=== PATIENT | male | born 1960 | race Caucasian/White ===

== ENCOUNTER → 2016-02-19 | Outpatient (CLI) | payer OTHER ==
[~2016-02-19] MED LIST: ATOR40TA PO; BUPIVACAINE HCL 0.25% 10 ML VIAL As Ordered ONE; BUPIVACAINE HCL 0.25% 30 ML VIAL As Ordered ONE; CELE40TA PO; NEUR300C PO; PANT40TA2 PO; PLAV75TA38 PO; TRIAMCINOLONE ACETONIDE SUSP 40 MG/ML VIAL (J3301) As Ordered ONE
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
== END ==
LOC: M PAIN 14:00
PROVIDERS: ATTEND Anesthesiology
DX: G89.29 Other chronic pain (principal); M79.1 Myalgia; M54.5 Low back pain; Z79.82 Long term (current) use of aspirin; Z79.899 Other long term (current) drug therapy
CPT/HCPCS: 20552; J3301

== ENCOUNTER → 2016-07-08 | Outpatient (CLI) | payer OTHER ==
[~2016-07-08] MED LIST changes: -BUPIVACAINE HCL 0.25% 10 ML VIAL As Ordered ONE; +ISOVUE-M 300 61% 15ML VIAL (Q9967) As Ordered ONE; +LIDOCAINE 1% SDV INJ 30 ML VIAL As Ordered ONE
--- NOTE | 2016-07-09 17:48 | REP ---
FLUOROSCOPIC GUIDANCE: The images were reviewed with Dr. Rodriguez. The patient has a history of low back pain. The portable C-ARM was provided in the OR by Dr. Patel for fluoroscopic guidance. 5 intraoperative fluoroscopic spot films were obtained for needle placement verification for left iliolumbar injection. The films are on the PACS system and are available for review. 10 seconds of fluoroscopic time was utilized for this procedure. Reviewed by LUPE Luz 07/10/2016 12:35 PEdited and Signed by Xander Rodriguez MD 07/10/2016 07:22 P
--- NOTE | 2016-07-21 00:09 | ECWPNPC ---
PATIENT NAME: HIRAL FERREIRA : 1960 GENDER: MALE VISIT DATE: 07/08/2016 DISCHARGE DATE: 07/08/16 1030 VISIT LOCKED DATE TIME: PHYSICIAN: EDUARDO BARRETT RESOURCE: EDUARDO BARRETT REASON FOR APPOINTMENT 1. ILIOLUMBAR LIGAMENT INJ HISTORY OF PRESENT ILLNESS HISTORY OF PRESENT ILLNESS: PAIN THE PATIENT DESCRIBES THE PAIN... FALL RISK SCREENING: SCREENING :NO FALLS IN THE PAST YEAR CURRENT MEDICATIONS TAKING CELEXA 40 MG TABLET 1 TAB ORALLY ONCE A DAY, NOTES: 07/08 799 TAKING PLAVIX 75 MG TABLET 1 TABLET ORALLY ONCE A DAY, NOTES: 07/07/16799 TAKING LIPITOR 10 MG TABLET 1 TABLET ORALLY ONCE A DAY, NOTES: 07/08 799 TAKING BABY ASPIRIN 1 TAB ORALLY DAILY, NOTES: 07/07/16799 TAKING IBUPROFEN 800 MG TABLET 1 TABLET WITH FOOD OR MILK ORALLY WITH FOOD THREE TIMES A DAY NEEDED FOR PAIN, NOTES: 2 WEEKS OR SO NOT-TAKING TIZANIDINE HCL 2 MG TABLET 1 TABLET NEEDED ORALLY BEFORE BEDTIME FOR SPASMS AND PAIN MAY REPEAT IN 4HRS MDD2, NOTES: NONE LATELY MEDICATION LIST REVIEWED AND RECONCILED WITH THE PATIENT PAST MEDICAL HISTORY DEPREESION RIGHT LEG FX ALLERGIES N.K.D.A. REVIEW OF SYSTEMS CONSTITUTIONAL: ANY CHANGE IN YOUR MEDICAL CONDITION? NO . CHILLS NO . FEVER NO . INFECTION: DO YOU HAVE NEW INFECTIONS? NO . DO YOU HAVE HISTORY OF MRSA? NO . MUSCULOSKELETAL: ANY NEW PATTERNS OF PAIN OR NUMBNESS? NO . GASTROENTEROLOGY: ANY NEW CHANGE IN BOWEL CONTROL? NO . GENITOURINARY: ANY NEW CHANGE IN BLADDER CONTROL? NO . IS THERE A CHANCE YOU COULD BE ? NO . HEMATOLOGY/LYMPH: DO YOU TAKE ANY BLOOD THINNERS? (FOR EXAMPLE- COUMADIN, PLAVIX, AGGRENOX, PLATEL, PRADAXA, OR XARELTO) NO . WHEN WAS YOUR LAST DOSE? DATE: TIME: . NEUROLOGY: HAVE YOU FALLEN IN THE PAST 6 MONTHS? NO . ANY NEW EXTREMITY NUMBNESS OR WEAKNESS? NO . CARDIOLOGY: DO YOU HAVE A PACEMAKER OR DEFIBRILLATOR? NO . RESPIRATORY: HAVE YOU BEEN SICK IN THE PAST WEEK? NO . FEVER NO . FLU LIKE SYMPTOMS? NO . COUGH NO . INTEGUMENTARY: DO YOU HAVE ANY RASHES OR OPEN SORES? NO . ALLERGIC/IMMUNO: ARE YOU ALLERGIC TO SHELLFISH OR IV DYE? NO . ANY NEW ALLERGIES? NO . PSYCHIATRIC: DO YOU HAVE THOUGHTS OF HURTING YOURSELF OR SOMEONE ELSE? NO . ARE YOU ABUSED, NEGLECTED, OR IN AN UNSAFE ENVIRONMENT? NO . ENDOCRINOLOGY: ARE YOU DIABETIC? NO . OTHER: DO YOU NEED ANY PRESCRIPTIONS? NO . IF YES, PLEASE LIST: ____ . ANY NEW PROBLEMS WITH YOUR MEDICATIONS? NO . WHEN DID YOU LAST EAT? 8PM . WHEN DID YOU LAST DRINK? 8PM . WHAT DID YOU LAST DRINK? MILK . NAME OF PERSON DRIVING YOU HOME? MICHELINE . DO YOU HAVE ANY OTHER QUESTIONS OR CONCERNS NO . REVIEWED BY: PROVIDER: . VITAL SIGNS WT 194 LBS, HT 71 IN, BMI 27.05 INDEX, BP 149/70 MM HG, HR 85 /MIN, RR 18 /MIN, TEMP 98.6 F, OXYGEN SAT % 96%, NA INITIALS SC 09:12, REVIEWED BY: NL. ASSESSMENTS SPINAL ENTHESOPATHY, LUMBAR REGION - M46.06 (PRIMARY) TREATMENT OTHERS NOTES: PRE-PROCEDURE DIAGNOSIS: LEFT ILIO-LUMBAR LIGAMENT INFLAMMATIONPOST-PROCEDURE DIAGNOSIS: LEFT ILIO-LUMBAR LIGAMENT INJECTION INFLAMMATIONPROCEDURE: LEFT ILIO-LUMBAR LIGAMENT BLOCK UNDER FLUOROSCOPYSURGEON: CHRISTIN ARGUETATHESIA: LOCAL WITH IV SEDATIONCOMPLICATIONS: NONEPRE-PROCEDURE NOTE:THE PATIENT IS SUFFERING OF BACK PAIN. I REVIEWED THE CHART AND DISCUSSED THE CASE WITH THE PATIENT. AFTER DISCUSSING RISK, ALTERNATIVES AND BENEFITS WE HAVE AGREED ON PROCEEDING WITH THE PROCEDURE. THE PATIENT AGREES.PROCEDURE NOTE:AFTER REVIEW THE CASE WITH THE PATIENT HE WAS BROUGHT TO THE PROCEDURE ROOM AND PLACED IN THE PRONE POSITION. THE TARGET AREA WAS CLEANED WITH CHLORAPREP SOLUTION AND DRAPED ASEPTICALLY. TARGET WAS SELECTED AT THE SUPERIOR BORDER OF THE LEFT ILIAC CREST. LIDOCAINE 1% WAS USED LOCAL ANESTHETIC. SPINAL NEEDLE 22 GAUGE WAS ADVANCED UNDER FLUOROSCOPIC GUIDANCE UNTIL THE TARGET WAS REACHED. ISOVUE M DYE 30% 0.25 CC WAS INJECTED SHOWING ADEQUATE SPREAD OF THE DYE. THEN A SOLUTION OF 30 CC OF BUPIVACAINE 0.125% AND KENALOG 40 MG WAS INJECTED. THE PATIENT TOLERATES THE PROCEDURE WITHOUT COMPLICATIONS AND WAS SENT TO THE RECOVERY ROOM. FLUORO TIME = 10 SEC. POST-PROCEDURE NOTE:I WILL SEE THE PATIENT IN A FOLLOW UP IN THE NEXT FEW WEEKS. WE ARE LOOKING FOR LONG LASTING PAIN RELIEVE WITH THIS INTERVENTION. INSTRUCTIONS WERE GIVEN QUESTIONS WERE ANSWERED AND THE PATIENT REPORTS UNDERSTANDING AND AGREES. I, PRINCE THACKER, DOCUMENTED THE ABOVE INFORMATION ACTING A SCRIBE FOR DR. BARRETT. I HAVE REVIEWED THE ABOVE DOCUMENT, WRITTEN BY PRINCE LUNAIBSonny AND I VERIFY THAT IT IS ACCURATE. DIAGNOST[facility] FLUORO GUIDANCE (PAIN)[id number] PROCEDURE CODES 25530 INJ TENDON SHEATH/LIGAMENT 19698 NEEDLE LOCALIZATION BY XRAY 6045F RADXPS IN END [id number] PXD DISPOSITION & COMMUNICATION FOLLOW UP 3 WEEKS ELECTRONICALLY SIGNED BY EDUARDO BARRETT MD ON 07/20/2016 AT 06:55 PM EDT DISCLAIMER : THIS IS A VISIT SUMMARY EXTRACTED FROM THE [employer] CHART. IT IS NOT A COPY OF THE [employer] PROGRESS NOTE. MTDD
== END ==
LOC: M PAIN 09:00
PROVIDERS: ATTEND Anesthesiology
DX: M46.06 Spinal enthesopathy, lumbar region (principal); Z79.82 Long term (current) use of aspirin; Z79.01 Long term (current) use of anticoagulants; Z79.899 Other long term (current) drug therapy

== ENCOUNTER → 2016-07-22 | Outpatient (CLI) | payer OTHER ==
[~2016-07-22] MED LIST changes: +ATOR1TAB19 PO; -ATOR40TA PO; +ATOR40TA75 PO; -BUPIVACAINE HCL 0.25% 30 ML VIAL As Ordered ONE; +COLA100C5 PO; -ISOVUE-M 300 61% 15ML VIAL (Q9967) As Ordered ONE; -LIDOCAINE 1% SDV INJ 30 ML VIAL As Ordered ONE; +LISI-538 PO; +MULTLIQ7 PO; +PLAV1TAB2 PO; -PLAV75TA38 PO; +PREG100CA PO; +PROT1TAB2 PO; +SOMA350T PO; -TRIAMCINOLONE ACETONIDE SUSP 40 MG/ML VIAL (J3301) As Ordered ONE; +TYLE325T5 PO; +ULTR50TA8 PO
--- NOTE | 2016-08-09 00:14 | ECWPNPC ---
PATIENT NAME: HIRAL FERREIRA : 1960 GENDER: MALE VISIT DATE: 07/22/2016 DISCHARGE DATE: 07/22/16 1410 VISIT LOCKED DATE TIME: PHYSICIAN: ROB CUI RESOURCE: ROB CUI REASON FOR APPOINTMENT 1. 40 MIN F/U BACK HISTORY OF PRESENT ILLNESS HISTORY OF PRESENT ILLNESS: PAIN THE PATIENT DESCRIBES THE PAIN... FALL RISK SCREENING: SCREENING :NO FALLS IN THE PAST YEAR TODAY'S VISIT: NOTES: S/P LEFT ILIO-LUMBAR LIGAMENT BLOCK UNDER FLURO COMPLETED ON 07/08/16. REPORTS IMPROVED PAIN CONTROL IN LOW BACK LEFT SIDE. RATES PAIN TODAY 2/10 IN LOW BACK AND 7/10 IN RIGHT FOOT. REPORTS 80% IMPROVEMENT IN PAIN AT THE INJECTION AREA. HAS NOT HEARD FROM NEUROLOGY REGARDING RIGHT FOOT. LATERAL TOES RITGHT FOOT. MOST OF PAIN IS RIGHT GREAT TOES. FOOT SWELLS. HAD SIMILAR PAIN BEFORE VASCULAR SURGEON (SOPHIA) WHO REFERRED HIM TO US. NOT SLEEPING SO WELL DO TO MANY AREAS OF PAIN.. CURRENT MEDICATIONS TAKING CELEXA 40 MG TABLET 1 TAB ORALLY ONCE A DAY TAKING PLAVIX 75 MG TABLET 1 TABLET ORALLY ONCE A DAY TAKING LIPITOR 10 MG TABLET 1 TABLET ORALLY ONCE A DAY TAKING LISINOPRIL 20 MG TABLET 1 TABLET ORALLY ONCE A DAY NOT-TAKING BABY ASPIRIN 1 TAB ORALLY DAILY, NOTES: 07/07/16 0800 NOT-TAKING IBUPROFEN 800 MG TABLET 1 TABLET WITH FOOD OR MILK ORALLY WITH FOOD THREE TIMES A DAY NEEDED FOR PAIN, NOTES: 2 WEEKS OR SO NOT-TAKING TIZANIDINE HCL 2 MG TABLET 1 TABLET NEEDED ORALLY BEFORE BEDTIME FOR SPASMS AND PAIN MAY REPEAT IN 4HRS MDD2, NOTES: NONE LATELY MEDICATION LIST REVIEWED AND RECONCILED WITH THE PATIENT PAST MEDICAL HISTORY DEPREESION RIGHT LEG FX ALLERGIES N.K.D.A. SOCIAL HISTORY GENERAL: PAIN CLINIC PFS, CLERGY, PUBLIC HEALTH REFERRALS PFS REFERRAL NEEDED?NO CLERGY REFERRAL NEEDED?NO PUBLIC HEALTH REFERRAL NEEDED?NO WAS THE PROVIDER NOTIFIED OF ANY PERTINENT INFO?NO HAS THE PATIENT BEEN EDUCATED REGARDING HIS/HER PLAN OF CARE?YES HAS THE PATIENT BEEN EDUCATED REGARDING PAIN, THE RISK FOR PAIN, THE IMPORTANCE OF EFFECTIVE PAIN MANAGEMENT, AND THE PAIN ASSESSMENT PROCESS?YES PATIENT: ____. REVIEW OF SYSTEMS REVIEWED BY: PROVIDER: ROB WALKER CONTENT STRATEGY LEAD . CONSTITUTIONAL: ANY CHANGE IN YOUR MEDICAL CONDITION? NO . CHILLS NO . FEVER NO . INFECTION: DO YOU HAVE NEW INFECTIONS? NO . DO YOU HAVE HISTORY OF MRSA? NO . MUSCULOSKELETAL: ANY NEW PATTERNS OF PAIN OR NUMBNESS? NO . GASTROENTEROLOGY: ANY NEW CHANGE IN BOWEL CONTROL? NO . GENITOURINARY: ANY NEW CHANGE IN BLADDER CONTROL? NO . IS THERE A CHANCE YOU COULD BE ? NO . HEMATOLOGY/LYMPH: DO YOU TAKE ANY BLOOD THINNERS? (FOR EXAMPLE- COUMADIN, PLAVIX, AGGRENOX, PLATEL, PRADAXA, OR XARELTO) YES, PLAVIX . WHEN WAS YOUR LAST DOSE? DATE:07/22/16 TIME: 729 . NEUROLOGY: HAVE YOU FALLEN IN THE PAST 6 MONTHS? NO . ANY NEW EXTREMITY NUMBNESS OR WEAKNESS? NO . CARDIOLOGY: DO YOU HAVE A PACEMAKER OR DEFIBRILLATOR? NO . RESPIRATORY: HAVE YOU BEEN SICK IN THE PAST WEEK? NO . FEVER NO . FLU LIKE SYMPTOMS? NO . COUGH NO . INTEGUMENTARY: DO YOU HAVE ANY RASHES OR OPEN SORES? NO . ALLERGIC/IMMUNO: ARE YOU ALLERGIC TO SHELLFISH OR IV DYE? NO . ANY NEW ALLERGIES? NO . PSYCHIATRIC: DO YOU HAVE THOUGHTS OF HURTING YOURSELF OR SOMEONE ELSE? NO . ARE YOU ABUSED, NEGLECTED, OR IN AN UNSAFE ENVIRONMENT? NO . ENDOCRINOLOGY: ARE YOU DIABETIC? NO . OTHER: DO YOU NEED ANY PRESCRIPTIONS? NO . IF YES, PLEASE LIST: ____ . ANY NEW PROBLEMS WITH YOUR MEDICATIONS? NO . WHEN DID YOU LAST EAT? ____ . WHEN DID YOU LAST DRINK? ____ . WHAT DID YOU LAST DRINK? ____ . NAME OF PERSON DRIVING YOU HOME? ____ . DO YOU HAVE ANY OTHER QUESTIONS OR CONCERNS NO . VITAL SIGNS WT 192.4 LBS, HT 71", BMI 26.83 INDEX, BP 132/72 MM HG, HR 84 /MIN, RR 16 /MIN, TEMP 98.3 F, OXYGEN SAT % 96%, NA INITIALS TL 1306, REVIEWED BY: CS. EXAMINATION GENERAL EXAMINATION: PSYCHALERT , ORIENTED X 3 , APPROPRIATE MOOD AND AFFECT , TALKATIVE. LUNGS:CLEAR TO AUSCULTATION BILATERALLY. HEART:HEART RATE REGULAR. MUSCULOSKELETAL:MINIMAL TO NO TENDERNESS WITH PALPATION OVER LEFT ILIAC CREST AND TROCANTER. TENDER WITH PALPATION OVER SACRUM, DISTAL TO SACRAL ILIAC JOINT. SLOW TO DENISE TO STANDING POSITION. POSTURE UPRIGHT. GAIT ANTALGIC, WITH RIGHT LEG LIMP. EXTREMITIES:SLIGHT SWELLING BETWEEN 1ST AND 2ND METATARSALS. TRACE PULSE AT DP AND PT RIGHT , 2+ LEFT DP. FEET EQUALLY WARM.. ASSESSMENTS SPINAL ENTHESOPATHY, LUMBAR REGION - M46.06 (PRIMARY) MYALGIA - M79.1 (PRIMARY) NEURALGIA AND NEURITIS, UNSPECIFIED - M79.2 TREATMENT SPINAL ENTHESOPATHY, LUMBAR REGION START TIZANIDINE HCL TABLET, 4 MG, 1/2 - 1 TABLET NEEDED, ORALLY, BEFORE BEDTIME, 30 DAY(S), 30, REFILLS 1 LAB: URIC ACID LAB: COMPREHENSIVE METABOLIC PROFILE LAB: ERYTHROCYTE SEDIMENTATION RATE LAB: VITB12 & FOL NOTES: NEEDS EMG/NCS WITH DR GUO - RIGHT FOOT NEURALGIA. PREVENTIVE MEDICINE PAIN CLINIC TEACHING: MEDICATIONS INFORMATION GIVEN ABOUT TIZANIDINE. PROCEDURE CODES FA211 ESTABILISHED PATIENT [facility] CHARGE DISPOSITION & COMMUNICATION FOLLOW UP ONE MONTH ELECTRONICALLY SIGNED BY RAHEL FERNANDES ON 08/08/2016 AT 04:23 PM EDT DISCLAIMER : THIS IS A VISIT SUMMARY EXTRACTED FROM THE [employer] CHART. IT IS NOT A COPY OF THE [employer] PROGRESS NOTE. KARIN
== END ==
LOC: M PAIN 13:20
PROVIDERS: ATTEND Nurse Practitioner Family
DX: M46.06 Spinal enthesopathy, lumbar region (principal); M79.1 Myalgia; M79.2 Neuralgia and neuritis, unspecified; Z79.899 Other long term (current) drug therapy; Z79.01 Long term (current) use of anticoagulants

== ENCOUNTER → 2016-09-01 | Outpatient (CLI) | payer OTHER ==
--- NOTE | 2016-09-01 09:44 | REP ---
REASON: Lower extremity radicular symptoms. COMPARISON: 10/17/2014 Once again, there is loss of disc space height and disc hydrational signal at every level particularly L1-2 through L3-4 inclusive, status quo. Once again, there are Modic type 3 endplate changes seen at L2-3 status quo. Vertebral body height and alignment is unchanged. There is no change in the marrow signal. At the L1-2 level, there is no significant change. There is a broad-based annular bulge effacing the ventral subarachnoid space, status quo. There is no acute disc extrusion or foraminal narrowing. At the L2-3 level, there is a large asymmetric broad-based annular bulge seen in conjunction with a sequestrated central disc extrusion, which effaces the ventral subarachnoid space, is seen to have migrated inferiorly, and is causing significant compression on the left L2 foraminal nerve as well as the L3 nerve root on the left. This represents as significant change from the prior exam. At the L3-4 level, a large broad-based annular bulge is again noted, which effaces the ventral subarachnoid space causing flattening and straightening. There is no change in the degree of central canal stenosis. There is bilateral foraminal narrowing without evidence of foraminal nerve compression. No acute disc extrusion has developed. At the L4-5 level, there is a large asymmetric broad-based annular bulge which contacts the left L4 foraminal nerve. The broad-based bulge has increased in size from the prior exam. There is a flattening and straightening of the anterior thecal sac, which has also increased from the prior exam. There is no evidence of an acute disc extrusion. At the L5-S1 level, there is no changed. There is a broad-based annular bulge, but there is no disc extrusion, foraminal narrowing, or central canal stenosis. Hypertrophic degenerative facet joint changes are seen bilaterally at every level with thickening of the ligamentum flava status quo. IMPRESSION: Multi-level discogenic changes but with particular attention drawn to the L2-3 level as described above. Signed by Uriel Lam DO 09/01/2016 01:22 P
== END ==
LOC: M RAD 06:34
PROVIDERS: ATTEND Family Medicine
DX: M54.16 Radiculopathy, lumbar region (principal); M51.36 Other intervertebral disc degeneration, lumbar region

== ENCOUNTER → 2016-09-15 | Outpatient (CLI) | payer OTHER ==
--- NOTE | 2016-09-15 11:34 | REP ---
CT LUMBAR SPINE WITHOUT CONTRAST: HISTORY: Radiculopathy. COMPARISON: MR 09/01/2016. A diffuse disc bulge is present at the L1-2 level. There is minimal compression of the thecal sac. There is hypertrophy of the posterior articulating facets. The L1 nerves exit the neural foramina without compression. A diffuse disc bulge asymmetric to the right and large left paracentral disc extrusion are present at the L2-3 level. There is inferior migration of disc material. There is moderate compression of the thecal sac and left L3 nerve as it exits the thecal sac and in the left L3 lateral recess. There is hypertrophy of the posterior articulating facets. There is compression of the right L2 nerve in the neural foramen. The left L2 nerve exits the neural foramen without compression. A diffuse disc bulge is present at the L3-4 level. The disc extrusion at the L3-4 level extends inferiorly to the level of the L3-4 intervertebral disc. These findings produce moderate compression of the thecal sac. There is hypertrophy of the posterior articulating facets. There is compression of the L3 nerves in the neural foramina. A diffuse disc bulge is present at the L4-5 level. There is minimal compression of the thecal sac. There is hypertrophy of the posterior articulating facets. There is compression of the left L4 nerve in the neural foramen. The right L4 nerve exits the neural foramen without compression. A diffuse disc bulge and small right paracentral disc protrusion are present at the L5-S1 level. There is minimal compression of the thecal sac and right S1 nerve as it exits the thecal sac. There is hypertrophy of the posterior articulating facets. The L5 nerves exit the neural foramina without compression. The lumbar intervertebral discs are decreased in height. Vacuum phenomenon is present at the L2-3 through L4-5 levels. These findings are consistent with disc degeneration. There is no subluxation. IMPRESSION: 1. Diffuse disc bulge at the L1-2 level with minimal thecal sac compression. 2. Diffuse disc bulge and large left paracentral disc extrusion at the L2-3 level with moderate thecal sac compression. 3. Diffuse disc bulge at the L3-4 level with moderate thecal sac compression. 4. Diffuse disc bulge at the L4-5 level with minimal thecal sac compression. 5. Diffuse disc bulge and small right paracentral disc protrusion at the L5-S1 level with minimal compression of the thecal sac and right S1 nerve as it exits the thecal sac. The disc protrusion is a new finding. There is no other significant change. ? Signed by Jacob Parikh MD 09/15/2016 11:36 A
== END ==
LOC: M RAD 09:59
PROVIDERS: ATTEND Neurological Surgery
DX: M54.16 Radiculopathy, lumbar region (principal); M51.26 Other intervertebral disc displacement, lumbar region; M51.27 Other intervertebral disc displacement, lumbosacral region

== ENCOUNTER → 2016-09-30 | Outpatient (CLI) | payer OTHER ==
[2016-09-30 09:11] LABS: BASO % 0.7 % (0.0-1.0); EOS # 0.1 K/mm3 (0.0-0.50); LARGE UNSTAINED CELL # 0.1 K/mm3 (0.0-0.4); LARGE UNSTAINED CELL % 1.5 % (0.0-4.0); LYMPH # 1.3 K/mm3 (1.5-4.5); LYMPH % 18.8 % (24.0-44.0); MEAN CORPUSCULAR HEMOGLOBIN 31.5 pg (27.0-33.0); MEAN CORPUSCULAR HGB CONC 34.5 g/dl (32.0-36.5); MEAN CORPUSCULAR VOLUME 91.4 fl (80.0-96.0); MONO # 0.5 K/mm3 (0.0-0.8); MONO % 6.8 % (0.0-5.0); NEUTROPHILS # 4.8 K/mm3 (1.8-7.7); NEUTROPHILS % 70.3 % (36.0-66.0); PLATELET COUNT, AUTOMATED 344 k/mm3 (150-450); RED CELL DISTRIBUTION WIDTH 14.1 % (11.5-14.5); WHITE BLOOD COUNT 6.8 K/mm3 (4.0-10.0)
[2016-09-30 09:20] LABS: INR 0.91
--- NOTE | 2016-09-30 09:31 | ECGEPIP ---
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
--- NOTE | 2016-09-30 09:35 | REP ---
CHEST X-RAY: Two views. HISTORY: Lumbar radiculopathy. Comparison study: June 29, 2012. FINDINGS: The patient is status post ventral discectomy and fusion at the cervicothoracic junction. There are degenerative changes throughout the thoracic spine. The lungs are well inflated and free of infiltrate. Pleural angles are sharp. Heart size is normal. Pulmonary vasculature is not increased. IMPRESSION: No active cardiopulmonary disease. Signed by Javid Borges MD 09/30/2016 09:56 A
[2016-09-30 09:36] LABS: ALBUMIN 3.9 GM/DL (3.2-5.2); ALBUMIN/GLOBULIN RATIO 1.26 (1.00-1.93); ALKALINE PHOSPHATASE 126 U/L (45-117); ALT/SGPT 22 U/L (12-78); ANION GAP 9 MEQ/L (8-16); AST/SGOT 17 U/L (15-37); BILIRUBIN,TOTAL 0.3 MG/DL (0.2-1.0); BLOOD UREA NITROGEN 13 MG/DL (7-18); CALCIUM LEVEL 9.2 MG/DL (8.5-10.1); CARBON DIOXIDE LEVEL 24 MEQ/L (21-32); CHLORIDE LEVEL 106 MEQ/L (98-107); CREATININE FOR GFR 0.97 MG/DL (0.70-1.30); GLOMERULAR FILTRATION RATE > 60.0 (>56); GLUCOSE, FASTING 106 MG/DL (70-105); POTASSIUM SERUM 4.7 MEQ/L (3.5-5.1); SODIUM LEVEL 139 MEQ/L (136-145)
== END ==
LOC: M LAB 08:28
PROVIDERS: ATTEND Neurological Surgery
DX: Z01.818 Encounter for other preprocedural examination (principal); M54.16 Radiculopathy, lumbar region; Z72.0 Tobacco use

== ENCOUNTER → 2016-11-19 | Outpatient (CLI) | payer MEDICAID, OTHER ==
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
== END ==
LOC: M PAIN 13:00
PROVIDERS: ATTEND Anesthesiology
DX: M96.1 Postlaminectomy syndrome, not elsewhere classified (principal); M79.2 Neuralgia and neuritis, unspecified; F32.9 Major depressive disorder, single episode, unspecified; Z79.01 Long term (current) use of anticoagulants; Z79.899 Other long term (current) drug therapy

== ENCOUNTER → 2016-11-26 | Outpatient (REF) | payer MEDICAID, OTHER | LOC: M LABNEURO 15:26 | PROVIDERS: ATTEND Neurological Surgery | DX: Z01.89 Encounter for other specified special examinations (principal) ==

== ENCOUNTER → 2016-11-28 | Outpatient (CLI) | payer MEDICAID ==
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
== END ==
LOC: M PAIN 14:50
PROVIDERS: ATTEND Anesthesiology
DX: G89.29 Other chronic pain (principal); M96.1 Postlaminectomy syndrome, not elsewhere classified; M79.2 Neuralgia and neuritis, unspecified; F32.9 Major depressive disorder, single episode, unspecified; Z79.02 Long term (current) use of antithrombotics/antiplatelets; Z79.899 Other long term (current) drug therapy; Z98.1 Arthrodesis status

== ENCOUNTER → 2016-12-02 | Outpatient (CLI) | payer MEDICAID ==
--- NOTE | 2016-12-02 16:31 | REP ---
LUMBOSACRAL SPINE: AP and lateral views of the lumbar sacral spine are performed and compared to prior study of 11/14/2016. There is no new compression fracture. There is again mild anterior listhesis of L4 unchanged since prior study. Moderate diffuse spurring is present. There is sclerotic density in the L2 through L4 vertebral bodies. Disc space narrowing is seen at all levels, unchanged, with a disc spacer at L4-5. Posterior rods and screws appear unchanged. IMPRESSION: Stable exam. Signed by Xander Rodriguez MD 12/03/2016 04:31 P
== END ==
LOC: M RAD 15:00
PROVIDERS: ATTEND Neurological Surgery
DX: M48.07 Spinal stenosis, lumbosacral region (principal)

== ENCOUNTER → 2016-12-02 | Outpatient (CLI) | payer MEDICAID ==
[2016-12-02 16:22] LABS: BLOOD UREA NITROGEN 23 MG/DL (7-18); CREATININE FOR GFR 1.08 MG/DL (0.70-1.30); GLOMERULAR FILTRATION RATE > 60.0 (>56)
== END ==
LOC: M LAB 14:46
PROVIDERS: ATTEND Neurological Surgery
DX: Z01.89 Encounter for other specified special examinations (principal)

== ENCOUNTER → 2016-12-29 | Outpatient (CLI) | payer OTHER, MEDICAID ==
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
== END ==
LOC: M PAIN 10:15
PROVIDERS: ATTEND Nurse Practitioner Family
DX: M96.1 Postlaminectomy syndrome, not elsewhere classified (principal); M79.2 Neuralgia and neuritis, unspecified; F32.9 Major depressive disorder, single episode, unspecified; Z79.01 Long term (current) use of anticoagulants; K21.9 Gastro-esophageal reflux disease without esophagitis; Z87.891 Personal history of nicotine dependence; Z79.899 Other long term (current) drug therapy

== ENCOUNTER → 2017-02-05 | Outpatient (CLI) | payer OTHER, MEDICAID | LOC: M PAIN 09:45 | DX: G89.29 Other chronic pain (principal); M96.1 Postlaminectomy syndrome, not elsewhere classified; M79.2 Neuralgia and neuritis, unspecified; I73.9 Peripheral vascular disease, unspecified; F32.9 Major depressive disorder, single episode, unspecified; Z79.02 Long term (current) use of antithrombotics/antiplatelets; Z79.899 Other long term (current) drug therapy; Z87.891 Personal history of nicotine dependence | CPT/HCPCS: G0463 ==

== ENCOUNTER → 2017-02-24 | Outpatient (CLI) | payer OTHER, MEDICAID | LOC: M PAIN 10:30 | DX: M96.1 Postlaminectomy syndrome, not elsewhere classified (principal); M79.2 Neuralgia and neuritis, unspecified; I73.9 Peripheral vascular disease, unspecified; Z79.891 Long term (current) use of opiate analgesic; Z79.899 Other long term (current) drug therapy; Z87.891 Personal history of nicotine dependence | CPT/HCPCS: G0463 ==

== ENCOUNTER → 2017-02-25 | Outpatient (CLI) | payer OTHER | LOC: M RAD 11:29 | DX: M96.1 Postlaminectomy syndrome, not elsewhere classified (principal) | CPT/HCPCS: 72100 ==

== ENCOUNTER → 2017-03-11 | Outpatient (REF) | payer OTHER ==
[2017-03-11 17:57] LABS: BASO % 0.4 % (0.0-1.0); EOS # 0.1 10^3/uL (0.0-0.50); EOS % 0.6 % (0.0-3.0); HEMATOCRIT 38.2 % (42.0-52.0); HEMOGLOBIN 12.7 g/dl (14.0-18.0); IMMATURE GRANULOCYTE % 0.2 % (0-0); LYMPH # 2.2 10^3/uL (1.5-4.5); LYMPH % 19.8 % (24.0-44.0); MEAN CORPUSCULAR HEMOGLOBIN 27.9 pg (27.0-33.0); MEAN CORPUSCULAR HGB CONC 33.2 g/dl (32.0-36.5); MEAN CORPUSCULAR VOLUME 83.8 fl (80.0-96.0); MONO # 0.9 10^3/uL (0.0-0.8); MONO % 8.1 % (0.0-5.0); NEUTROPHILS # 7.7 10^3/uL (1.8-7.7); NEUTROPHILS % 70.9 % (36.0-66.0); PLATELET COUNT, AUTOMATED 413 10^3/uL (150-450); RED BLOOD COUNT 4.56 10^6/uL (4.30-6.10); RED CELL DISTRIBUTION WIDTH 16.1 % (11.5-14.5); WHITE BLOOD COUNT 10.9 10^3/uL (4.0-10.0)
[2017-03-11 18:06] LABS: ALBUMIN 4.1 GM/DL (3.2-5.2); ALBUMIN/GLOBULIN RATIO 1.21 (1.00-1.93); ALKALINE PHOSPHATASE 177 U/L (45-117); ALT/SGPT 22 U/L (12-78); ANION GAP 9 MEQ/L (8-16); AST/SGOT 20 U/L (7-37); BILIRUBIN,TOTAL 0.4 MG/DL (0.2-1.0); BLOOD UREA NITROGEN 10 MG/DL (7-18); C REACTIVE PROTEIN QUANTITATIV 0.92 MG/DL (0.00-0.30); CALCIUM LEVEL 9.4 MG/DL (8.5-10.1); CARBON DIOXIDE LEVEL 24 MEQ/L (21-32); CHLORIDE LEVEL 105 MEQ/L (98-107); CHOLESTEROL LEVEL 153 MG/DL (<200); CHOLESTEROL RISK RATIO 2.886 (<5); CPK CREATINE PHOSPHOKINASE 136 U/L (39-308); CREATININE FOR GFR 0.75 MG/DL (0.70-1.30); FERRITIN 23 NG/ML (26-388); GLOMERULAR FILTRATION RATE > 60.0 (>56); GLUCOSE, FASTING 71 MG/DL (70-100); HDL CHOLESTEROL 53 MG/DL (>40); IRON (FE) 48 UG/DL (65-175); NON-HDL-C 100 MG/DL; PERCENT SATURATION 13.6 % (19.7-50.0); POTASSIUM SERUM 4.4 MEQ/L (3.5-5.1); PSA SCREENING 0.43 NG/ML (< 4.0); SODIUM LEVEL 138 MEQ/L (136-145); TOTAL IRON BINDING CAPACITY 353 UG/DL (250-450); TOTAL PROTEIN 7.5 GM/DL (6.4-8.2); TRIGLYCERIDES LEVEL 120 MG/DL (<150)
[2017-03-11 18:27] LABS: ERYTHROCYTE SEDIMENTATION RATE 12 mm/hr (0-20)
== END ==
LOC: M SFHCPLAZ 15:11
DX: I10 Essential (primary) hypertension (principal); E78.00 Pure hypercholesterolemia, unspecified; Z12.5 Encounter for screening for malignant neoplasm of prostate; T85.9XXS Unspecified complication of internal prosthetic device, implant and graft, sequela

== ENCOUNTER → 2017-03-12 | Outpatient (CLI) | payer OTHER | LOC: M RAD 10:45 | DX: I70.213 Atherosclerosis of native arteries of extremities with intermittent claudication, bilateral legs (principal); M48.07 Spinal stenosis, lumbosacral region; M54.16 Radiculopathy, lumbar region | CPT/HCPCS: 93923 ==

== ENCOUNTER → 2017-04-01 | Outpatient (CLI) | payer OTHER ==
[2017-04-01 16:50] LABS: ANION GAP 8 MEQ/L (8-16); BLOOD UREA NITROGEN 8 MG/DL (7-18); CALCIUM LEVEL 9.2 MG/DL (8.5-10.1); CARBON DIOXIDE LEVEL 26 MEQ/L (21-32); CHLORIDE LEVEL 106 MEQ/L (98-107); CREATININE FOR GFR 0.79 MG/DL (0.70-1.30); GLOMERULAR FILTRATION RATE > 60.0 (>56); GLUCOSE, FASTING 89 MG/DL (70-100); POTASSIUM SERUM 4.3 MEQ/L (3.5-5.1); SODIUM LEVEL 140 MEQ/L (136-145)
[2017-04-01 18:43] LABS: BASO % 0.5 % (0.0-1.0); EOS # 0.1 10^3/uL (0.0-0.50); EOS % 0.6 % (0.0-3.0); HEMATOCRIT 40.5 % (42.0-52.0); HEMOGLOBIN 13.4 g/dl (14.0-18.0); IMMATURE GRANULOCYTE % 0.3 % (0-3.0); LYMPH # 2.3 10^3/uL (1.5-4.5); LYMPH % 26.2 % (24.0-44.0); MEAN CORPUSCULAR HEMOGLOBIN 27.7 pg (27.0-33.0); MEAN CORPUSCULAR HGB CONC 33.1 g/dl (32.0-36.5); MEAN CORPUSCULAR VOLUME 83.7 fl (80.0-96.0); MONO # 0.8 10^3/uL (0.0-0.8); NEUTROPHILS # 5.5 10^3/uL (1.8-7.7); NEUTROPHILS % 63.4 % (36.0-66.0); PLATELET COUNT, AUTOMATED 397 10^3/uL (150-450); RED BLOOD COUNT 4.84 10^6/uL (4.30-6.10); RED CELL DISTRIBUTION WIDTH 15.9 % (11.5-14.5); WHITE BLOOD COUNT 8.7 10^3/uL (4.0-10.0)
== END ==
LOC: M LAB 15:35
DX: M48.07 Spinal stenosis, lumbosacral region (principal); M54.16 Radiculopathy, lumbar region; I70.213 Atherosclerosis of native arteries of extremities with intermittent claudication, bilateral legs
CPT/HCPCS: 80048

== ENCOUNTER → 2017-04-03 | Outpatient (CLI) | payer OTHER ==
[2017-04-03 14:00] LABS: BASO % 0.5 % (0.0-1.0); EOS # 0.1 10^3/uL (0.0-0.50); EOS % 0.8 % (0.0-3.0); HEMOGLOBIN 13.4 g/dl (14.0-18.0); IMMATURE GRANULOCYTE % 0.3 % (0-3.0); LYMPH # 1.9 10^3/uL (1.5-4.5); LYMPH % 25.5 % (24.0-44.0); MEAN CORPUSCULAR HEMOGLOBIN 28.2 pg (27.0-33.0); MEAN CORPUSCULAR HGB CONC 33.5 g/dl (32.0-36.5); MONO # 0.7 10^3/uL (0.0-0.8); NEUTROPHILS # 4.7 10^3/uL (1.8-7.7); NEUTROPHILS % 63.9 % (36.0-66.0); PLATELET COUNT, AUTOMATED 367 10^3/uL (150-450); RED BLOOD COUNT 4.76 10^6/uL (4.30-6.10); WHITE BLOOD COUNT 7.3 10^3/uL (4.0-10.0)
[2017-04-03 14:31] LABS: C REACTIVE PROTEIN QUANTITATIV 0.85 MG/DL (0.00-0.30)
[2017-04-03 15:48] LABS: ERYTHROCYTE SEDIMENTATION RATE 11 mm/hr (0-20)
== END ==
LOC: M LAB 13:20
DX: Z01.89 Encounter for other specified special examinations (principal); M47.896 Other spondylosis, lumbar region; Z98.890 Other specified postprocedural states
CPT/HCPCS: 72114

== ENCOUNTER → 2017-04-06 | Outpatient (CLI) | payer OTHER | LOC: M PLARAD 10:49 | DX: G96.19 Other disorders of meninges, not elsewhere classified (principal); M51.26 Other intervertebral disc displacement, lumbar region; Z98.1 Arthrodesis status; M96.89 Other intraoperative and postprocedural complications and disorders of the musculoskeletal system | CPT/HCPCS: 72158 ==

== ENCOUNTER → 2017-04-24 | Outpatient (CLI) | payer OTHER | LOC: M PAIN 11:15 | DX: M96.1 Postlaminectomy syndrome, not elsewhere classified (principal); M79.2 Neuralgia and neuritis, unspecified; I73.9 Peripheral vascular disease, unspecified; F32.9 Major depressive disorder, single episode, unspecified; F41.9 Anxiety disorder, unspecified; K21.9 Gastro-esophageal reflux disease without esophagitis; G25.81 Restless legs syndrome; Z79.01 Long term (current) use of anticoagulants; Z79.899 Other long term (current) drug therapy; Z86.79 Personal history of other diseases of the circulatory system; Z87.891 Personal history of nicotine dependence; Z95.828 Presence of other vascular implants and grafts | CPT/HCPCS: G0463 ==

== ENCOUNTER → 2017-05-18 | Outpatient (CLI) | payer OTHER ==
[~2017-05-18] MED LIST changes: -ATOR1TAB19 PO; -ATOR40TA75 PO; -CELE40TA PO; -COLA100C5 PO; +HEPARIN 1,000 UNITS/ML 10ML VIAL (FOR RADIOLOGY& DIALYSIS ONLY) As Ordered; +ISOVUE-300 61% 50ML VIAL (Q9967) As Ordered; -LISI-538 PO; +MIDAZOLAM INJ 2 MG/2 ML VIAL (J2250) As Ordered; -MULTLIQ7 PO; -NEUR300C PO; +NORCO, ANEXSIA 5/325MG TABLET (HYDROcodone/ACETAMINOPHEN) As Ordered; -PANT40TA2 PO; -PLAV1TAB2 PO; -PREG100CA PO; -PROT1TAB2 PO; -SOMA350T PO; -TYLE325T5 PO; -ULTR50TA8 PO; +fentaNYL 100 MCG/2 ML INJECTION (J3010) As Ordered
== END | disposition home or self-care (01) ==
LOC: M IRPRO 06:26
DX: I70.411 Atherosclerosis of autologous vein bypass graft(s) of the extremities with intermittent claudication, right leg (principal); M47.9 Spondylosis, unspecified; Z96.9 Presence of functional implant, unspecified
CPT/HCPCS: 37224

== ENCOUNTER → 2017-05-26 | Outpatient (REF) | payer OTHER ==
[2017-05-26 15:40] LABS: BASO % 0.4 % (0.0-1.0); EOS # 0.1 10^3/uL (0.0-0.50); EOS % 0.6 % (0.0-3.0); HEMATOCRIT 42.1 % (42.0-52.0); HEMOGLOBIN 14.2 g/dl (13.5-17.5); IMMATURE GRANULOCYTE % 0.4 % (0-3.0); LYMPH # 1.7 10^3/uL (1.5-4.5); LYMPH % 18.4 % (24.0-44.0); MEAN CORPUSCULAR HEMOGLOBIN 28.1 pg (27.0-33.0); MEAN CORPUSCULAR HGB CONC 33.7 g/dl (32.0-36.5); MEAN CORPUSCULAR VOLUME 83.2 fl (80.0-96.0); MONO # 0.8 10^3/uL (0.0-0.8); MONO % 9.2 % (0.0-5.0); NEUTROPHILS # 6.4 10^3/uL (1.8-7.7); PLATELET COUNT, AUTOMATED 454 10^3/uL (150-450); RED BLOOD COUNT 5.06 10^6/uL (4.30-6.10); RED CELL DISTRIBUTION WIDTH 16.9 % (11.5-14.5)
[2017-05-26 15:50] LABS: C REACTIVE PROTEIN QUANTITATIV 0.99 MG/DL (0.00-0.30)
[2017-05-26 22:00] LABS: ERYTHROCYTE SEDIMENTATION RATE 9 mm/hr (0-20)
== END ==
LOC: M SFHCPLAZ 12:13
DX: T85.9XXS Unspecified complication of internal prosthetic device, implant and graft, sequela (principal); Y92.9 Unspecified place or not applicable; Y93.9 Activity, unspecified

== ENCOUNTER → 2017-06-05 | Outpatient (CLI) | payer OTHER | END | disposition home or self-care (01) | LOC: M PAIN 09:30 | DX: G89.29 Other chronic pain (principal); M96.1 Postlaminectomy syndrome, not elsewhere classified; M79.2 Neuralgia and neuritis, unspecified; I73.9 Peripheral vascular disease, unspecified; F41.9 Anxiety disorder, unspecified; F33.9 Major depressive disorder, recurrent, unspecified; K21.9 Gastro-esophageal reflux disease without esophagitis; Z79.899 Other long term (current) drug therapy; Z79.02 Long term (current) use of antithrombotics/antiplatelets; Z87.891 Personal history of nicotine dependence; Z95.0 Presence of cardiac pacemaker | CPT/HCPCS: G0463 ==

== ENCOUNTER → 2017-06-15 | Outpatient (CLI) | payer OTHER ==
[~2017-06-15] MED LIST changes: -NORCO, ANEXSIA 5/325MG TABLET (HYDROcodone/ACETAMINOPHEN) As Ordered
== END | disposition home or self-care (01) ==
LOC: M IRPRO 06:12
DX: M79.605 Pain in left leg (principal); M48.062 Spinal stenosis, lumbar region with neurogenic claudication; M51.36 Other intervertebral disc degeneration, lumbar region
CPT/HCPCS: 36246

== ENCOUNTER → 2017-06-19 | Outpatient (CLI) | payer OTHER | LOC: M RAD 09:17 | DX: I70.213 Atherosclerosis of native arteries of extremities with intermittent claudication, bilateral legs (principal); M48.07 Spinal stenosis, lumbosacral region | CPT/HCPCS: 93923 ==

== ENCOUNTER → 2017-06-22 | Outpatient (REF) | payer OTHER ==
[2017-06-22 19:29] LABS: BASO # 0.1 10^3/uL (0.0-0.2); BASO % 0.5 % (0.0-1.0); EOS # 0.1 10^3/uL (0.0-0.50); EOS % 0.8 % (0.0-3.0); HEMATOCRIT 41.6 % (42.0-52.0); HEMOGLOBIN 13.9 g/dl (13.5-17.5); IMMATURE GRANULOCYTE % 0.2 % (0-3.0); LYMPH # 2.9 10^3/uL (1.5-4.5); MEAN CORPUSCULAR HEMOGLOBIN 29.2 pg (27.0-33.0); MEAN CORPUSCULAR HGB CONC 33.4 g/dl (32.0-36.5); MEAN CORPUSCULAR VOLUME 87.4 fl (80.0-96.0); MONO # 0.9 10^3/uL (0.0-0.8); MONO % 9.4 % (0.0-5.0); NEUTROPHILS % 60.1 % (36.0-66.0); PLATELET COUNT, AUTOMATED 372 10^3/uL (150-450); RED BLOOD COUNT 4.76 10^6/uL (4.30-6.10); RED CELL DISTRIBUTION WIDTH 17.4 % (11.5-14.5); WHITE BLOOD COUNT 9.9 10^3/uL (4.0-10.0)
[2017-06-22 19:53] LABS: ALBUMIN 4.2 GM/DL (3.2-5.2); ALBUMIN/GLOBULIN RATIO 1.35 (1.00-1.93); ALKALINE PHOSPHATASE 161 U/L (45-117); ALT/SGPT 28 U/L (12-78); ANION GAP 8 MEQ/L (8-16); AST/SGOT 20 U/L (7-37); BILIRUBIN,TOTAL 0.5 MG/DL (0.2-1.0); BLOOD UREA NITROGEN 8 MG/DL (7-18); CALCIUM LEVEL 9.1 MG/DL (8.5-10.1); CARBON DIOXIDE LEVEL 28 MEQ/L (21-32); CHLORIDE LEVEL 106 MEQ/L (98-107); CHOLESTEROL LEVEL 149 MG/DL (<200); CHOLESTEROL RISK RATIO 2.568 (<5); CPK CREATINE PHOSPHOKINASE 107 U/L (39-308); CREATININE FOR GFR 0.87 MG/DL (0.70-1.30); FERRITIN 29 NG/ML (26-388); GLOMERULAR FILTRATION RATE > 60.0 (>56); GLUCOSE, FASTING 66 MG/DL (70-100); HDL CHOLESTEROL 58 MG/DL (>40); IRON (FE) 66 UG/DL (65-175); LDL CHOLESTEROL 79.4 MG/DL (<100); NON-HDL-C 91 MG/DL; PERCENT SATURATION 20.1 % (19.7-50.0); POTASSIUM SERUM 4.2 MEQ/L (3.5-5.1); SODIUM LEVEL 142 MEQ/L (136-145); TOTAL IRON BINDING CAPACITY 329 UG/DL (250-450); TOTAL PROTEIN 7.3 GM/DL (6.4-8.2); TRIGLYCERIDES LEVEL 58 MG/DL (<150)
== END ==
LOC: M SFHCPLAZ 15:49
DX: D50.9 Iron deficiency anemia, unspecified (principal); K21.0 Gastro-esophageal reflux disease with esophagitis

== ENCOUNTER → 2017-08-04 | Outpatient (CLI) | payer OTHER | LOC: M PAIN 09:15 | DX: M96.1 Postlaminectomy syndrome, not elsewhere classified (principal); M79.2 Neuralgia and neuritis, unspecified; M79.1 Myalgia; F32.9 Major depressive disorder, single episode, unspecified; F41.9 Anxiety disorder, unspecified; K21.9 Gastro-esophageal reflux disease without esophagitis; G25.81 Restless legs syndrome; I73.9 Peripheral vascular disease, unspecified; Z79.01 Long term (current) use of anticoagulants; Z79.899 Other long term (current) drug therapy; Z87.891 Personal history of nicotine dependence | CPT/HCPCS: G0463 ==

== ENCOUNTER → 2017-08-06 | Outpatient (CLI) | payer OTHER | LOC: M RAD 10:17 | DX: M96.1 Postlaminectomy syndrome, not elsewhere classified (principal) | CPT/HCPCS: 73521 ==

== ENCOUNTER → 2017-09-02 | Outpatient (CLI) | payer OTHER | LOC: M PAIN 10:30 | DX: M96.1 Postlaminectomy syndrome, not elsewhere classified (principal); M79.2 Neuralgia and neuritis, unspecified; M79.1 Myalgia; F32.9 Major depressive disorder, single episode, unspecified; F41.9 Anxiety disorder, unspecified; G25.81 Restless legs syndrome; Z79.01 Long term (current) use of anticoagulants; Z79.899 Other long term (current) drug therapy; Z87.891 Personal history of nicotine dependence; Z86.79 Personal history of other diseases of the circulatory system | CPT/HCPCS: G0463 ==

== ENCOUNTER → 2017-09-24 | Outpatient (REF) | payer OTHER ==
[2017-09-24 16:14] LABS: ALBUMIN 4.1 GM/DL (3.2-5.2); ALBUMIN/GLOBULIN RATIO 1.14 (1.00-1.93); ALKALINE PHOSPHATASE 154 U/L (45-117); ALT/SGPT 35 U/L (12-78); ANION GAP 9 MEQ/L (8-16); AST/SGOT 20 U/L (7-37); BILIRUBIN,TOTAL 0.6 MG/DL (0.2-1.0); BLOOD UREA NITROGEN 12 MG/DL (7-18); C REACTIVE PROTEIN QUANTITATIV 0.62 MG/DL (0.00-0.30); CALCIUM LEVEL 9.4 MG/DL (8.5-10.1); CARBON DIOXIDE LEVEL 24 MEQ/L (21-32); CHLORIDE LEVEL 108 MEQ/L (98-107); CREATININE FOR GFR 0.84 MG/DL (0.70-1.30); GLOMERULAR FILTRATION RATE > 60.0 (>56); GLUCOSE, FASTING 93 MG/DL (70-100); POTASSIUM SERUM 4.5 MEQ/L (3.5-5.1); RHEUMATOID FACTOR QUANT < 10.0 IU/ML (<15.0); SODIUM LEVEL 141 MEQ/L (136-145); TOTAL PROTEIN 7.7 GM/DL (6.4-8.2)
[2017-09-24 16:35] LABS: BASO % 0.4 % (0.0-1.0); EOS # 0.1 10^3/uL (0.0-0.50); EOS % 0.6 % (0.0-3.0); HEMATOCRIT 42.8 % (42.0-52.0); HEMOGLOBIN 14.8 g/dl (13.5-17.5); IMMATURE GRANULOCYTE % 0.3 % (0-3.0); LYMPH # 2.1 10^3/uL (1.5-4.5); LYMPH % 22.8 % (24.0-44.0); MEAN CORPUSCULAR HEMOGLOBIN 29.7 pg (27.0-33.0); MEAN CORPUSCULAR HGB CONC 34.6 g/dl (32.0-36.5); MEAN CORPUSCULAR VOLUME 85.8 fl (80.0-96.0); MONO # 0.8 10^3/uL (0.0-0.8); MONO % 8.1 % (0.0-5.0); NEUTROPHILS # 6.3 10^3/uL (1.8-7.7); NEUTROPHILS % 67.8 % (36.0-66.0); PLATELET COUNT, AUTOMATED 343 10^3/uL (150-450); RED BLOOD COUNT 4.99 10^6/uL (4.30-6.10); RED CELL DISTRIBUTION WIDTH 15.8 % (11.5-14.5); WHITE BLOOD COUNT 9.4 10^3/uL (4.0-10.0)
[2017-09-24 19:28] LABS: ERYTHROCYTE SEDIMENTATION RATE 7 mm/hr (0-20)
[2017-09-28 00:06] LABS: CYCLIC CITRULLINATED PEPTIDE 5 units (0-19)
[2017-09-28 00:06] LABS: ANA (HEP2) Positive (.); Lyme Disease IgG/IgM Antibodie <0.91 ISR (0.00-0.90); Lyme Disease IgM Ab Quantitati <0.80 index (0.00-0.79)
== END ==
LOC: M SFHCPLAZ 14:01
DX: M02.30 Reiter's disease, unspecified site (principal); I10 Essential (primary) hypertension
CPT/HCPCS: 80053

== ENCOUNTER → 2017-12-03 | Outpatient (CLI) | payer OTHER | LOC: M PAIN 09:00 | DX: M96.1 Postlaminectomy syndrome, not elsewhere classified (principal); I73.9 Peripheral vascular disease, unspecified; F32.9 Major depressive disorder, single episode, unspecified; F41.9 Anxiety disorder, unspecified; G25.81 Restless legs syndrome; F17.210 Nicotine dependence, cigarettes, uncomplicated; Z79.01 Long term (current) use of anticoagulants; Z79.899 Other long term (current) drug therapy | CPT/HCPCS: G0463 ==

== ENCOUNTER → 2017-12-28 | Outpatient (REF) | payer OTHER ==
[2017-12-28 13:38] LABS: BASO # 0.1 10^3/uL (0.0-0.2); BASO % 0.7 % (0.0-1.0); EOS # 0.1 10^3/uL (0.0-0.50); EOS % 0.7 % (0.0-3.0); HEMATOCRIT 44.5 % (42.0-52.0); HEMOGLOBIN 15.2 g/dl (13.5-17.5); IMMATURE GRANULOCYTE % 0.6 % (0-3.0); LYMPH # 1.7 10^3/uL (1.5-4.5); LYMPH % 24.8 % (24.0-44.0); MEAN CORPUSCULAR HEMOGLOBIN 30.6 pg (27.0-33.0); MEAN CORPUSCULAR HGB CONC 34.2 g/dl (32.0-36.5); MEAN CORPUSCULAR VOLUME 89.5 fl (80.0-96.0); MONO # 0.6 10^3/uL (0.0-0.8); NEUTROPHILS # 4.4 10^3/uL (1.8-7.7); NEUTROPHILS % 64.2 % (36.0-66.0); PLATELET COUNT, AUTOMATED 355 10^3/uL (150-450); RED BLOOD COUNT 4.97 10^6/uL (4.30-6.10); RED CELL DISTRIBUTION WIDTH 15.2 % (11.5-14.5); WHITE BLOOD COUNT 6.8 10^3/uL (4.0-10.0)
[2017-12-28 13:51] LABS: ALBUMIN 4.3 GM/DL (3.2-5.2); ALBUMIN/GLOBULIN RATIO 1.34 (1.00-1.93); ALKALINE PHOSPHATASE 144 U/L (45-117); ALT/SGPT 37 U/L (12-78); ANION GAP 5 MEQ/L (8-16); AST/SGOT 24 U/L (7-37); BILIRUBIN,TOTAL 0.6 MG/DL (0.2-1.0); BLOOD UREA NITROGEN 9 MG/DL (7-18); C REACTIVE PROTEIN QUANTITATIV 0.49 MG/DL (0.00-0.30); CALCIUM LEVEL 9.7 MG/DL (8.5-10.1); CARBON DIOXIDE LEVEL 27 MEQ/L (21-32); CHLORIDE LEVEL 105 MEQ/L (98-107); CREATININE FOR GFR 0.79 MG/DL (0.70-1.30); GLOMERULAR FILTRATION RATE > 60.0 (>56); GLUCOSE, FASTING 88 MG/DL (70-100); POTASSIUM SERUM 4.8 MEQ/L (3.5-5.1); SODIUM LEVEL 137 MEQ/L (136-145); TOTAL PROTEIN 7.5 GM/DL (6.4-8.2)
[2017-12-28 14:11] LABS: ERYTHROCYTE SEDIMENTATION RATE 6 mm/hr (0-20)
[2017-12-30 00:39] LABS: ANA (HEP2) Negative (.)
== END ==
LOC: M SFHCPLAZ 10:27
DX: T85.9XXS Unspecified complication of internal prosthetic device, implant and graft, sequela (principal); D50.9 Iron deficiency anemia, unspecified; E78.00 Pure hypercholesterolemia, unspecified; M02.30 Reiter's disease, unspecified site
CPT/HCPCS: 80053

== ENCOUNTER → 2018-01-06 | Outpatient (CLI) | payer OTHER | LOC: M RAD 09:18 | DX: I70.213 Atherosclerosis of native arteries of extremities with intermittent claudication, bilateral legs (principal); Z95.828 Presence of other vascular implants and grafts | CPT/HCPCS: 93925 ==

== ENCOUNTER → 2018-02-16 | Outpatient (REF) | payer OTHER ==
[~2018-02-16] MED LIST changes: +ATOR1TAB19 PO; +ATOR40TA75 PO; +CELE40TA PO; +COLA100C5 PO; -HEPARIN 1,000 UNITS/ML 10ML VIAL (FOR RADIOLOGY& DIALYSIS ONLY) As Ordered; -ISOVUE-300 61% 50ML VIAL (Q9967) As Ordered; +LISI-538 PO; -MIDAZOLAM INJ 2 MG/2 ML VIAL (J2250) As Ordered; +MULTLIQ7 PO; +NEUR300C PO; +PANT40TA3 PO; +PLAV1TAB2 PO; +PREG100CA PO; +PROT1TAB2 PO; +SOMA350T PO; +TYLE325T5 PO; +ULTR50TA8 PO; -fentaNYL 100 MCG/2 ML INJECTION (J3010) As Ordered
[2018-02-16 13:16] LABS: BASO # 0.1 10^3/uL (0.0-0.2); BASO % 0.6 % (0.0-1.0); EOS # 0.1 10^3/uL (0.0-0.50); EOS % 0.8 % (0.0-3.0); HEMOGLOBIN 15.8 g/dl (13.5-17.5); LYMPH # 2.5 10^3/uL (1.5-4.5); LYMPH % 24.4 % (24.0-44.0); MEAN CORPUSCULAR HEMOGLOBIN 31.6 pg (27.0-33.0); MEAN CORPUSCULAR HGB CONC 35.1 g/dl (32.0-36.5); MONO # 0.9 10^3/uL (0.0-0.8); MONO % 9.1 % (0.0-5.0); NEUTROPHILS # 6.7 10^3/uL (1.8-7.7); NEUTROPHILS % 64.8 % (36.0-66.0); PLATELET COUNT, AUTOMATED 360 10^3/uL (150-450); WHITE BLOOD COUNT 10.3 10^3/uL (4.0-10.0)
[2018-02-16 13:53] LABS: ALBUMIN 4.3 GM/DL (3.2-5.2); ALT/SGPT 37 U/L (12-78); BILIRUBIN,TOTAL 0.4 MG/DL (0.2-1.0); BLOOD UREA NITROGEN 8 MG/DL (7-18); CALCIUM LEVEL 9.8 MG/DL (8.5-10.1); CARBON DIOXIDE LEVEL 26 MEQ/L (21-32); CHLORIDE LEVEL 104 MEQ/L (98-107); CREATININE FOR GFR 0.82 MG/DL (0.70-1.30); GLOMERULAR FILTRATION RATE > 60.0 (>56); GLUCOSE, FASTING 96 MG/DL (70-100); POTASSIUM SERUM 4.4 MEQ/L (3.5-5.1); SODIUM LEVEL 137 MEQ/L (136-145); TOTAL PROTEIN 7.5 GM/DL (6.4-8.2)
== END ==
LOC: M SFHCPLAZ 11:48
PROVIDERS: ATTEND Physician Assistant Medical
DX: R07.81 Pleurodynia (principal)

== ENCOUNTER → 2018-02-16 | Outpatient (CLI) | payer OTHER ==
--- NOTE | 2018-02-17 02:49 | REP ---
Clinical: Pleuritic chest pain . Comparison: 11/06/2016 . Technique: PA and lateral. Findings: The mediastinum and cardiac silhouette are normal. The lung lagunas are clear and without acute consolidation, effusion, or pneumothorax. The skeletal structures are intact and normal. Impression: 1. No acute cardiopulmonary process. Electronically Signed by Joey Zapien MD 02/17/2018 02:41 A
== END ==
LOC: M SMT 12:27
PROVIDERS: ATTEND Physician Assistant Medical
DX: R07.81 Pleurodynia (principal)

== ENCOUNTER → 2018-04-22 | Outpatient (CLI) | payer OTHER ==
[~2018-04-22] MED LIST changes: +CHLO25TA PO; +LIDO5CRE6 EX; +NORC1TAB4 PO
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
== END ==
LOC: M PAIN 10:30
PROVIDERS: ATTEND Nurse Practitioner Family
DX: M96.1 Postlaminectomy syndrome, not elsewhere classified (principal); M79.671 Pain in right foot; G89.29 Other chronic pain; F32.9 Major depressive disorder, single episode, unspecified; F41.9 Anxiety disorder, unspecified; K21.9 Gastro-esophageal reflux disease without esophagitis; G25.81 Restless legs syndrome; F17.210 Nicotine dependence, cigarettes, uncomplicated; Z79.01 Long term (current) use of anticoagulants; Z79.899 Other long term (current) drug therapy; Z86.79 Personal history of other diseases of the circulatory system

== ENCOUNTER 2018-05-11 06:40 | Day surgery (SDC) | payer OTHER ==
[~2018-05-11] VITALS: Ht 180.3 cm; Wt 90.3 kg
[~2018-05-11 06:40] MED LIST changes: -NORC1TAB4 PO; +NORC1TAB7 PO; +NS 1,000 ML IV ONE
--- NOTE | 2018-05-11 07:42 | ROOR ---
Patient Name: Horace Shi Procedure Date: 05/11/2018 7:31 AM Date of : 1960 Age: 58 Room: [facility] Gender: Male Note Status: Finalized Procedure: Upper GI endoscopy Indications: Heartburn Providers: Giorgio MEADOWS MD Referring MD: Sonal BONDS Requesting Provider: Medicines: Monitored Anesthesia Care Complications: No immediate complications. Procedure: Pre-Anesthesia Assessment: - The heart rate, respiratory rate, oxygen saturations, blood pressure, adequacy of pulmonary ventilation, and response to care were monitored throughout the procedure. The Endoscope was introduced through the mouth, and advanced to the second part of duodenum. The upper GI endoscopy was accomplished without difficulty. The patient tolerated the procedure well. Findings: The esophagus was normal. The stomach was normal. The examined duodenum was normal. Impression: - Normal esophagus. - Normal stomach. - Normal examined duodenum. - No specimens collected. Recommendation: - Observe patient's clinical course. - Follow an antireflux regimen. Giorgio Meadows MD Giorgio MEADOWS MD 05/11/2018 7:42:21 AM Electronically signed by Giorgio MEADOWS MD Number of Addenda: 0 Note Initiated On: 05/11/2018 7:31 AM Estimated Blood Loss: Estimated blood loss: none.
[2018-05-11] MEDS ORDERED: LIDOCAINE 2% INJ 100 MG/5 ML SDV (FOR ANES.) As Ordered ONE (08:00)
[2018-05-11] MEDS ORDERED: PROPOFOL 200 MG/20 ML VIAL As Ordered ONE (08:00)
--- NOTE | 2018-05-11 08:10 | ROOR ---
Patient Name: Horace Shi Procedure Date: 05/11/2018 7:32 AM Date of : 1960 Age: 58 Room: [facility] Gender: Male Note Status: Finalized Procedure: Colonoscopy Indications: Change in bowel habits Providers: Giorgio MEADOWS MD Referring MD: Sonal BONDS Requesting Provider: Medicines: Monitored Anesthesia Care Complications: No immediate complications. Procedure: Pre-Anesthesia Assessment: - The heart rate, respiratory rate, oxygen saturations, blood pressure, adequacy of pulmonary ventilation, and response to care were monitored throughout the procedure. The Colonoscope was introduced through the anus and advanced to 10 cm into the ileum. The colonoscopy was performed without difficulty. The patient tolerated the procedure well. The quality of the bowel preparation was good. Findings: Skin tags were found on perianal exam. Three sessile polyps were found in the sigmoid colon. The polyps were 4 to 5 mm in size. These polyps were removed with a cold snare. Resection and retrieval were complete. To prevent bleeding after the polypectomy, one hemostatic clip was successfully placed. There was no bleeding at the end of the procedure. Multiple small-mouthed diverticula were found in the left colon and right colon. Small Internal Hemorrhoids. The exam was otherwise normal throughout the examined colon. The terminal ileum appeared normal. Biopsies for histology were taken with a cold forceps from the entire colon for evaluation of microscopic colitis. Two small localized angioectasias without bleeding were found in the ascending colon and in the cecum. Impression: - Perianal skin tags found on perianal exam. - Three 4 to 5 mm polyps in the sigmoid colon, removed with a cold snare. Resected and retrieved. Clip was placed. - Moderate diverticulosis in the left colon and in the right colon. - Small Internal Hemorrhoids. - The examined portion of the ileum was normal. - Biopsies were taken with a cold forceps from the entire colon for evaluation of microscopic colitis. Recommendation: - Repeat colonoscopy in 3 years for surveillance. - Telephone endoscopist for pathology results in 2 weeks. Giorgio Meadows MD Giorgio MEADOWS MD 05/11/2018 8:09:49 AM Electronically signed by Giorgio MEADOWS MD Number of Addenda: 0 Note Initiated On: 05/11/2018 7:32 AM Estimated Blood Loss: Estimated blood loss: none.
[2018-05-11 08:30] VITALS: BP 126/72
== END 2018-05-11 08:39 | disposition home or self-care (01) ==
LOC: M OPP 06:40
PROVIDERS: ATTEND Internal Medicine Gastroenterology
DX: D12.5 Benign neoplasm of sigmoid colon (principal); K57.30 Diverticulosis of large intestine without perforation or abscess without bleeding; K55.20 Angiodysplasia of colon without hemorrhage; K64.4 Residual hemorrhoidal skin tags; K64.8 Other hemorrhoids; R12 Heartburn

== ENCOUNTER → 2018-07-20 | Outpatient (CLI) | payer OTHER ==
[~2018-07-20] MED LIST changes: -NS 1,000 ML IV ONE
--- NOTE | 2018-07-20 13:41 | REP ---
BILATERAL LOWER EXTREMITY DUPLEX DOPPLER ARTERIAL ULTRASOUND: Real-time ultrasound evaluation and duplex Doppler interrogation of the bilateral lower extremity arterial system is performed and compared to prior and compared to prior study 01/06/2018. SANDRA on the right is 0.99 and left 1.07. Right bypass graft is again seen connecting the common femoral artery to the tibioperoneal trunk. It is patent with normal flow velocities. Velocity at the proximal anastomosis is 160.9 cm/s and at the distal anastomosis 78.7 cm/s. Peak systolic velocity within the graft is 66.5 cm/s. Biphasic waveforms are seen throughout. 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 Mild to moderate plaquing in seen scattered bilaterally. There appears to be mild stenosis of the right posterior tibial artery as well as left mid superficial femoral artery. Biphasic and triphasic waveforms are seen throughout bilateral lower extremities except for mild phasic waveform in the distal right anterior tibial artery. Right Peak Left Peak Systolic Velocity Systolic velocity Common femoral artery 171.4 cm/s 152.0 cm/s Profunda 133.0 cm/s 113.4 cm/s Proximal SFA 122.8 cm/s 92.5 cm/s Mid SFA 71.5 cm/s 144.6 cm/s Distal SFA 58.2 cm/s 81.4 cm/s Popliteal occluded 75.6 cm/s Proximal DEMETRIO 31.1 cm/s 39.3 cm/s Tibial peroneal trunk occluded 92.5 cm/s Proximal SPANISHER 78.7 cm/s 61.8 cm/s Distal SPANISHER 78.5 cm/s 51.0 cm/s Distal DEMETRIO 14.3 cm/s 57.8 cm/s IMPRESSION: No significant change compared to prior study of 01/06/2018. There is a patent right-sided bypass graft from the common femoral artery to tibioperoneal trunk. 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 Scattered plaquing and narrowing bilaterally. Electronically Signed by Xander Rodriguez MD 07/20/2018 08:10 P
== END ==
LOC: M RAD 10:04
PROVIDERS: ATTEND Surgery Vascular Surgery
DX: I70.213 Atherosclerosis of native arteries of extremities with intermittent claudication, bilateral legs (principal)

== ENCOUNTER → 2018-08-03 | Outpatient (CLI) | payer OTHER ==
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
== END ==
LOC: M PAIN 11:45
PROVIDERS: ATTEND Nurse Practitioner Family
DX: M96.1 Postlaminectomy syndrome, not elsewhere classified (principal); M79.671 Pain in right foot; F32.9 Major depressive disorder, single episode, unspecified; F41.9 Anxiety disorder, unspecified; K21.9 Gastro-esophageal reflux disease without esophagitis; Z95.820 Peripheral vascular angioplasty status with implants and grafts; G25.81 Restless legs syndrome; M79.10 Myalgia, unspecified site; I35.0 Nonrheumatic aortic (valve) stenosis; F17.210 Nicotine dependence, cigarettes, uncomplicated; Z90.49 Acquired absence of other specified parts of digestive tract; Z98.1 Arthrodesis status; Z79.02 Long term (current) use of antithrombotics/antiplatelets; Z79.891 Long term (current) use of opiate analgesic; Z79.899 Other long term (current) drug therapy

== ENCOUNTER → 2018-08-18 | Outpatient (CLI) | payer OTHER ==
--- NOTE | 2018-08-18 12:13 | REP ---
CT LUMBAR SPINE WITHOUT CONTRAST: HISTORY: Post laminectomy syndrome. Comparison CT study, November 06, 2016. CT FINDINGS: The patient is again noted as to be status post laminectomy at each level from L2 through L5 and transpedicle interconnecting yvrose posterior element fusion from L2 bilaterally through S1. There is a neurostimulator device in place in the posterior paraspinal soft tissues bilaterally. Vertebral body heights are preserved. Alignment is unchanged. There is a stable grade 1 L4-5 spondylolisthesis 5-6 mm. There is minimal retrolisthesis at L3-4, unchanged. There is considerable spray artifact from metallic hardware. There is no visible bony destructive lesion or paraspinal soft tissue lesion. The T12-L1 disc level remains unremarkable. At L1-L2, there is mild disc bulging. Canal size is borderline. This appearance is unchanged. There is no evidence of recurrent disc herniation at any other level, although this would be difficult to exclude in view of the metallic spray artifact. Extensive vascular calcification is noted. Normal caliber aorta. IMPRESSION: Status post posterior element fusion and laminectomy L2 through S1, bilaterally. Stable findings from November 06, 2016. Electronically Signed by Javid Borges MD 08/18/2018 01:42 P
== END ==
LOC: M RAD 08:53
PROVIDERS: ATTEND Nurse Practitioner Family
DX: M96.1 Postlaminectomy syndrome, not elsewhere classified (principal); Z98.1 Arthrodesis status

== ENCOUNTER → 2018-09-09 | Outpatient (CLI) | payer OTHER ==
--- NOTE | 2018-09-09 12:25 | REP ---
Left shoulder three views: There is no fracture or dislocation. There is acromioclavicular osteoarthritis. The glenohumeral articulation is unremarkable. There are no calcifications or foreign bodies. Impression: Acromioclavicular osteoarthritis. No fracture or dislocation. Electronically Signed by Xander Bonilla MD 09/09/2018 11:23 A
--- NOTE | 2018-09-09 12:25 | REP ---
The cervical spine age views: There are no comparisons. There is surgical fusion of the C6-7 vertebral bodies. Vertebral body heights and alignment are normal. Alignment is normal. There is degenerative disc disease at every cervical spine level. The prevertebral soft tissues are normal. The facets are normally aligned. There is no listhesis on flexion or extension. There is bony foraminal encroachment at C4-5 on the right from uncinate spurring. The odontoid view is unremarkable. Impression: Degenerative disc disease throughout the cervical spine. Bony foraminal encroachment of the C4-5 on the right. Surgical fusion of C6-7. No listhesis. No vertebral body compression. Electronically Signed by Xander Bonilla MD 09/09/2018 11:28 A
== END ==
LOC: M SMT 10:58
PROVIDERS: ATTEND Physician Assistant Medical
DX: M25.512 Pain in left shoulder (principal); M54.2 Cervicalgia; W19.XXXA Unspecified fall, initial encounter; Y92.89 Other specified places as the place of occurrence of the external cause

== ENCOUNTER → 2018-09-10 | Outpatient (CLI) | payer OTHER ==
[2018-09-10 11:13] LABS: BASO % 0.5 % (0.0-1.0); EOS # 0.1 10^3/uL (0.0-0.50); EOS % 1.2 % (0.0-3.0); HEMATOCRIT 43.4 % (42.0-52.0); HEMOGLOBIN 15.3 g/dl (13.5-17.5); LYMPH # 1.7 10^3/uL (1.5-4.5); LYMPH % 22.3 % (24.0-44.0); MEAN CORPUSCULAR HEMOGLOBIN 31.7 pg (27.0-33.0); MEAN CORPUSCULAR HGB CONC 35.3 g/dl (32.0-36.5); MEAN CORPUSCULAR VOLUME 89.9 fl (80.0-96.0); MONO # 0.7 10^3/uL (0.0-0.8); NEUTROPHILS % 66.3 % (36.0-66.0); PLATELET COUNT, AUTOMATED 376 10^3/uL (150-450); RED BLOOD COUNT 4.83 10^6/uL (4.30-6.10); WHITE BLOOD COUNT 7.5 10^3/uL (4.0-10.0)
[2018-09-10 11:43] LABS: ALT/SGPT 47 U/L (12-78); BILIRUBIN,TOTAL 0.3 MG/DL (0.2-1.0); BLOOD UREA NITROGEN 10 MG/DL (7-18); CALCIUM LEVEL 8.8 MG/DL (8.5-10.1); CARBON DIOXIDE LEVEL 24 MEQ/L (21-32); CHLORIDE LEVEL 101 MEQ/L (98-107); CHOLESTEROL LEVEL 154 MG/DL (<200); CHOLESTEROL RISK RATIO 2.701 (<5); CPK CREATINE PHOSPHOKINASE 143 U/L (39-308); CREATININE FOR GFR 0.71 MG/DL (0.70-1.30); GLOMERULAR FILTRATION RATE > 60.0 (>56); GLUCOSE, FASTING 89 MG/DL (70-100); HDL CHOLESTEROL 57 MG/DL (>40); LDL CHOLESTEROL 83 MG/DL (<100); NON-HDL-C 97 MG/DL; POTASSIUM SERUM 4.7 MEQ/L (3.5-5.1); SODIUM LEVEL 134 MEQ/L (136-145); TOTAL PROTEIN 7.2 GM/DL (6.4-8.2); TRIGLYCERIDES LEVEL 72 MG/DL (<150)
== END ==
LOC: M LAB 09:07
PROVIDERS: ATTEND Physician Assistant Medical
DX: E78.00 Pure hypercholesterolemia, unspecified (principal); I10 Essential (primary) hypertension

== ENCOUNTER → 2018-11-03 | Outpatient (CLI) | payer MEDICARE, OTHER ==
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
== END ==
LOC: M PAIN 09:15
PROVIDERS: ATTEND Nurse Practitioner Family
DX: M25.551 Pain in right hip (principal); M79.18 Myalgia, other site; M96.1 Postlaminectomy syndrome, not elsewhere classified; Z79.891 Long term (current) use of opiate analgesic; Z79.899 Other long term (current) drug therapy; Z87.891 Personal history of nicotine dependence

== ENCOUNTER → 2018-12-01 | Outpatient (CLI) | payer MEDICARE, OTHER ==
--- NOTE | 2018-12-08 10:42 | REP ---
Clinical: Right hip pain. Technique: Neutral and frog lateral views of the right hip. Findings: Mild degenerative changes include increased sclerosis to the acetabular roof and underlying femoral head along with joint space narrowing and subtle spurring along the acetabular margin. A small posterior superior calcified loose body measuring approximately 7 mm suggested. No acute fracture dislocation. Impression: Mild degenerative changes. Electronically Signed by Joey Zapien MD 12/08/2018 10:33 A
== END ==
LOC: M RAD 10:40
PROVIDERS: ATTEND Nurse Practitioner Family
DX: M16.11 Unilateral primary osteoarthritis, right hip (principal); M25.551 Pain in right hip

== ENCOUNTER → 2019-01-13 | Outpatient (CLI) | payer OTHER ==
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
== END ==
LOC: M PAIN 10:30
PROVIDERS: ATTEND Nurse Practitioner Family
DX: M96.1 Postlaminectomy syndrome, not elsewhere classified (principal); Z86.59 Personal history of other mental and behavioral disorders; K21.9 Gastro-esophageal reflux disease without esophagitis; G25.81 Restless legs syndrome; M79.10 Myalgia, unspecified site; F17.210 Nicotine dependence, cigarettes, uncomplicated; Z79.01 Long term (current) use of anticoagulants; Z79.899 Other long term (current) drug therapy

== ENCOUNTER → 2019-01-24 | Outpatient (CLI) | payer OTHER ==
--- NOTE | 2019-01-24 14:36 | REP ---
Bilateral lower extremity arterial Doppler ultrasound: History: Atherosclerosis of the havas[place]ai arteries. Intermittent claudication. Right lower extremity bypass graft. Findings: Ankle brachial indices are normal measured at 0.98 on the right and 1.0 on the left. Moderate plaquing is seen bilaterally. Biphasic and triphasic waveforms are noted throughout with the exception of the distal CARE MGR and distal AT A on the right and the distal AT A on the left which are monophasic. The right popliteal, proximal ECA, and tibioperoneal trunk are occluded. The right common femoral to posterior tibial artery bypass graft is patent. Velocity chart right CF A to CARE MGR graft velocities: Proximal CF A anastomosis 161 cm/S Proximal thigh graft 61 Mid thigh 72 Distal thigh 85 Popliteal fossa 64 P T A anastomosis 80 Right lower extremity havas[place]ai arterial Doppler velocity chart: CF A 121 cm/S Profunda 132 Proximal SFA 111 Mid SFA 75 Distal SFA and 47 Popliteal occluded Proximal AT A occluded at origin/36 cm/S Tibioperoneal trunk occluded proximally, reversed Proximal CARE MGR 86 Distal CARE MGR 107 Distal AT A 29 Left lower extremity havasupai arterial Doppler velocity chart: CF A 121 cm/S Profunda 132 Proximal SFA 116 Mid SFA 117/172 Mid SFA 189 Popliteal 76 Proximal AT A 23 Tibioperoneal trunk 100 Proximal CARE MGR 58 Distal CARE MGR 62 Distal AT A 65 Electronically Signed by Javid Borges MD 01/24/2019 02:28 P
== END ==
LOC: M RAD 12:21
PROVIDERS: ATTEND Physician Assistant
DX: I70.213 Atherosclerosis of native arteries of extremities with intermittent claudication, bilateral legs (principal)

== ENCOUNTER → 2019-03-14 | Outpatient (CLI) | payer MEDICARE ==
[2019-03-14 10:47] LABS: HEMATOCRIT 44.2 % (42.0-52.0); HEMOGLOBIN 15.6 g/dl (13.5-17.5); MEAN CORPUSCULAR HEMOGLOBIN 30.5 pg (27.0-33.0); MEAN CORPUSCULAR HGB CONC 35.3 g/dl (32.0-36.5); MEAN CORPUSCULAR VOLUME 86.3 fl (80.0-96.0); PLATELET COUNT, AUTOMATED 375 10^3/uL (150-450); RED BLOOD COUNT 5.12 10^6/uL (4.30-6.10); WHITE BLOOD COUNT 8.2 10^3/uL (4.0-10.0)
[2019-03-14 11:16] LABS: BLOOD UREA NITROGEN 6 MG/DL (7-18); CALCIUM LEVEL 9.3 MG/DL (8.8-10.2); CARBON DIOXIDE LEVEL 31 MEQ/L (21-32); CHLORIDE LEVEL 96 MEQ/L (98-107); CREATININE FOR GFR 0.78 MG/DL (0.70-1.30); GLOMERULAR FILTRATION RATE > 60.0 (>49); GLUCOSE, FASTING 100 MG/DL (70-100); POTASSIUM SERUM 3.7 MEQ/L (3.5-5.1); SODIUM LEVEL 135 MEQ/L (136-145)
== END ==
LOC: M LAB 09:52
PROVIDERS: ATTEND Physician Assistant
DX: Z01.818 Encounter for other preprocedural examination (principal); I70.213 Atherosclerosis of native arteries of extremities with intermittent claudication, bilateral legs

== ENCOUNTER → 2019-05-02 | Outpatient (CLI) | payer MEDICARE ==
[~2019-05-02] MED LIST changes: +ALTEPLASE 2MG/2ML VIAL As Ordered ONE; +ISOVUE-300 61% 50ML VIAL As Ordered ONE; +KETOROLAC 30 MG/ML 1ML VIAL As Ordered ONE; +LIDOCAINE 1% MDV 20ML VIAL As Ordered ONE; +MIDAZOLAM INJ 2MG/2ML VIAL (J2250 PER 1MG) As Ordered ONE; +fentaNYL 100 MCG/2 ML INJECTION (J3010) As Ordered ONE
[2019-05-02 07:31] LABS: HEMATOCRIT 43.9 % (42.0-52.0); HEMOGLOBIN 15.4 g/dl (13.5-17.5); MEAN CORPUSCULAR HEMOGLOBIN 30.7 pg (27.0-33.0); MEAN CORPUSCULAR HGB CONC 35.1 g/dl (32.0-36.5); MEAN CORPUSCULAR VOLUME 87.5 fl (80.0-96.0); PLATELET COUNT, AUTOMATED 327 10^3/uL (150-450); RED BLOOD COUNT 5.02 10^6/uL (4.30-6.10); WHITE BLOOD COUNT 7.9 10^3/uL (4.0-10.0)
[2019-05-02 07:52] LABS: BLOOD UREA NITROGEN 12 MG/DL (7-18); CALCIUM LEVEL 8.9 MG/DL (8.8-10.2); CARBON DIOXIDE LEVEL 26 MEQ/L (21-32); CHLORIDE LEVEL 103 MEQ/L (98-107); CREATININE FOR GFR 0.79 MG/DL (0.70-1.30); GLOMERULAR FILTRATION RATE > 60.0 (>49); GLUCOSE, FASTING 110 MG/DL (70-100); SODIUM LEVEL 135 MEQ/L (136-145)
[2019-05-02 15:30] VITALS: BP 167/79
--- NOTE | 2019-05-02 16:31 | ROOPDOC ---
[facility] Report Of Operation Report of Operation DATE OF PROCEDURE: 05/02/19 PREPROCEDURE DIAGNOSES: Atherosclerosis of the lower sioux vessels with lifestyle limiting claudication status post right femoral to posterior tibial bypass POSTPROCEDURE DIAGNOSES: Same PROCEDURE: 1. Ultrasound-guided access left common femoral artery 2. Aortoiliofemoral arteriogram, selection of right common femoral artery with right lower extremity runoff 3. Cross chronic total occlusion distal right superficial femoral artery, popliteal artery and proximal anterior tibial artery and selection of distal anterior tibial artery with tibial runoff 4. Angioplasty right anterior tibial artery, popliteal artery, distal SFA with 2.5 x 220 Ellis balloon 5. Angioplasty SFA and popliteal artery on the right with 4 x 220 Ellis balloon 6. Angioplasty distal anterior tibial artery and dorsal pedis artery on the right with 2 x 220 Ellis balloon 7. Stenting distal right superficial femoral artery and popliteal artery with 5.5 x 100 superior stent and post-dilation with 4 x 200 [place] balloon 8. Stenting distal popliteal artery with 5.5 x 60 superior stent with 2 cm overlap and post-dilation with 4 x 200 [place] balloon 9. Stenting mid-distal right superficial femoral artery with 6 x 150 Innova stent with a 2 cm overlap and post-dilation with 5 x 200 [place] balloon, and 6 x 40 [place] balloon 10. TPA administration right distal popliteal artery proximal anterior tibial artery 11. Multiple repeat angioplasties of the superficial femoral artery with 5 and 6 [place] balloons, popliteal artery with 4 x 200 [place] balloon, and anterior tibial artery with 2.5 x 220 Ellis balloon 12. Completion arteriograms 13. Mynx closure left common femoral artery SURGEON: Jose Elias Hendrickson MD ANESTHESIA: Local anesthesia 10 mL lidocaine. Moderate intravenous conscious sedation was supervised by Dr. Hendrickson. The patient was independently monitored by registered nurse assigned to the Department of radiology using automated blood pressure, EKG, and pulse oximetry. The detailed sedation record is permanently stored in the hospital information system. The following is the brief sedation record: Start time 07:56, stop time 11:50, fentanyl 250 g IV, Versed 5 mg IV, Toradol 30 mg IV, heparin 6000 units IV. CONTRAST: 160 mL Isovue-300 INDICATION FOR PROCEDURE: Mr. Shi is a 59-year-old gentleman with a history of her right femoral to posterior tibial bypass that is patent but he reports significant claudication symptoms despite a patent bypass. He does have a history of lower back surgery and neuropathic pain, it is difficult to tell if his symptoms are classic claudication versus neuropathic, but he does have only minimal retrograde flow through the peroneal artery and no significant flow in the anterior tibial artery, which certainly could be contributing to claudication despite flow into the posterior tibial artery. Risks benefits and alternatives to an arteriogram potential intervention were explained to the patient and he was agreeable to proceed. Informed consent was obtained. We also had a lengthy discussion about smoking cessation before the procedure and discussed the importance of smoking cessation on the likelihood of long-term limb salvage. The patient was extensively counseled of the importance of smoking cessation. INTERPRETATION: 1. The distal aorta and iliac artery are widely patent. The common iliac artery, hypogastric, and external iliac artery are patent bilaterally. 2. The right common femoral artery is widely patent with good runoff through the profunda and the bypass which has in-line flow to the posterior tibial artery at the proximal calf and I believe this is an end-to-end anastomosis. The posterior tibial artery has widely patent runoff to the foot and collateralizes through the pedal vessels to fill the distal dorsal pedis artery and then up into the distal anterior tibial artery. There is also a collaterals from the posterior tibial artery at the ankle to the peroneal artery which retrograde fills to abou t the mid calf. No antegrade flow is noted through the anterior tibial or peroneal artery. The lower sioux superficial femoral artery originates at a slightly medial angle of the common femoral artery and is narrowing heavily disease in the proximal third, and then occludes at the mid SFA, with chronic occlusion of the mid and distal superficial femoral artery, popliteal artery, proximal peroneal artery, and proximal mid anterior tibial artery. 3. After crossing the chronic total occlusion and extensive angioplasty and stenting of the right SFA and popliteal artery, and extensive angioplasty of the right anterior tibial artery all the way to the dorsal pedis artery, limited in- line flow was noted through the lower sioux right system into the anterior tibial artery. There was still brisk flow through the bypass into the posterior tibial artery with collateral flow to the peroneal artery filling retrograde to the mid calf, and flow through the pedal loop to the anterior tibial artery through the dorsal pedis artery, a palpable pulse at the distal posterior tibial artery at the end of the case. REPORT OF OPERATION: The patient was brought to the angiographic suite in stable condition. Bilateral groins were prepped and draped in a sterile fashion. A timeout was performed. Local anesthesia was administered to the skin and subcutaneous tissue over the left common femoral artery. A microneedle was used to access the artery under ultrasound guidance. A wire was passed through this access under fluoroscopic guidance and the needle was removed and a 4 [place] micro-sheath was placed and flushed with saline. We advanced an O35 Glidewire into the aorta under fluoroscopic guidance and an Omni flushed catheter over the wire using a Seldinger technique. An aortoiliofemoral arteriogram was performed, please see interpretation above. We then went up and over the bifurcation with the catheter Glidewire and selected the right common femoral artery. Please see runoff interpretation above. We then were able to navigate the wire into the superficial femoral artery, and this took about 15 minutes of time as the wire preferred to continually select the bypass. Eventually we were able to cross into the lower sioux vessel. We then were able to navigate the wire down to the mid SFA. We exchange the sheath for 6 [place]ian 45 cm destination sheath over the wire and flushed the sheath with saline. We then placed an O35 Mililani over the wire and were able to carefully cross through the chronic total occlusion in the SFA and popliteal artery, but this also took a bit of time. There were several collaterals near the occlusion and it was difficult to cross the occlusion without the wire wanting to access the collaterals. However, afternoon extensive amount a work we did cross into the distal popliteal artery and into the anterior tibial artery. A contrast injection confirmed we were in the true lumen of the anterior tibial artery. We eventually cross to the distal anterior tibial artery with an O18 Glidewire advantage and an O18 [place]. Another contrast injection distally confirmed we were in the true lumen. The past to 2.5 x 220 Ellis balloon across the distal anterior tibial artery but could not cross to the ankle. Three-minute inflations was performed. We then retracted the balloon to create a lumen through the occlusion in the popliteal artery and SFA and sequential inflations along the length of the occlusion. We then removed this balloon and placed a 4 x 220 Ellis balloon across the popliteal artery and the SFA. Three-minute inflations were performed and following this we still did not have great flow through the area. I thought perhaps some of this was due to lack of outflow distally so we selected a by 220 Ellis balloon and were able to advance this all the way down to the dorsal pedis artery 3 minutes inflations were performed along the anterior tibial artery and proximal dorsal pedis artery. Unfortunately, we still did not note good flow, and I felt possibly a sturdier balloon across the popliteal and SFA might be helpful, so we did three-minute inflations with a 4 x 200 [place] balloon along the popliteal artery and SFA. Following this, we still did not have great flow. I felt that stenting the popliteal and SFA might be helpful due to the heavy plaque and chronic occlusion. We selected a 5.5 x 100 supera stent and deployed this across the proximal popliteal artery and distal SFA. We postdilated with a 4 x 200 [place] balloon. There was such heavy plaque in the mid SFA that the origin of the stent did not open completely despite post- dilation. We then placed a 6 x 150 Innova stent with a 2 cm overlap and postdilated with a 5 x 200 [place] balloon. The area of heavy plaque in the mid SFA still did not quite open, so we selected a 6 x 40 [place] balloon for additional angioplasty and post-dilation of the stent. The plaque in this area was very resistant to angioplasty, and we again angioplastied along the entire stent with a 5 x 200 [place] balloon. I felt extending the stent distally might be helpful to the mid popliteal artery, and a 5.5 x 60 supera stent was deployed with a 2 cm overlap and postdilated with a 4 x 200 [place] balloon. We still did not have great flow through the stented area. At this point I decided it was likely due to outflow issues. We again angioplastied along the entire length of the distal popliteal artery into the anterior tibial artery and along its length with a 2.5 x 220 Ellis balloon for three-minute inflations. Unfortunately, we still did not note much improvement. We again angioplastied along the popliteal and SFA with a 5 x 200 [place] balloon for three-minute inflations. Still, we did not note great flow. This was very frustrating and we were not sure where the issue was so I passed a wire and the Mililani catheter down to the distal anterior tibial artery. We noted great flow distally into the dorsal pedis artery that looped around into the posterior tibial artery, and great flow through the distal anterior tibial artery, but the proximal anterior tibial artery still looked a bit heavy with plaque. In case there was any clot in this area, I felt a little bit of TPA might not hurt, so 6 mg of TPA was administered to the distal popliteal artery and proximal anterior tibial artery. This was allowed to sit for a moment and then we angioplastied with a 2.5 x 220 Ellis balloon again. Following this, we did have somewhat better flow through the area but with heavy plaque, I'm not sure how long this will stay open. We replaced the Mililani catheter and performed an arteriogram through the Milil[place] catheter showing flow through the the anterior tibial artery to the foot, but still some limited flow through the popliteal artery and the stented area in the popliteal and SFA. We angioplastied again with 5 x 200 [place] balloon, but unfortunately we simply were not making much progress. Although we had contrast filling the vessel with retraction of the [place] throughout the length, we just cannot get much anterior flow. I am not exactly sure why. Nevertheless, the vessel was open the entire length, and this was an extremely long procedure and I felt the patient could not tolerate ongoing efforts with revascularization. He has widely patent flow through the bypass into the posterior tibial artery which Through the pedal vessels to fill the anterior tibial artery through the dorsal pedis, and also With collaterals to the peroneal artery to retrograde fill the calf. At this point, we may have made a little bit of improvement with flow into the anterior tibial artery, but I am not completely convinced that we made a significant difference. I do not feel ongoing efforts for revascularization will be fruitful, nor do I think there is another option for an open revasculariz ation due to the heavy disease in the anterior tibial artery and the functional bypass to the posterior tibial artery. I think the better option is for the patient to quit smoking, and we discussed this. He is agreeable to this plan. We replaced the O35 wire and exchange the sheath for short 6 Algerian sheath and flushed the sheath with saline. The Mynx closure device was deployed under fluoroscopic guidance and good hemostasis was noted. Pressure was held for 10 minutes and sterile dressings were applied, and the patient was then taken to recovery in stable condition. ESTIMATED BLOOD LOSS: Approximately 10 mL. COMPLICATIONS: None. PLAN: We will see the patient back in clinic to see how he is doing after the procedure. We will check his groin access site. Unfortunately, I'm not sure that we significantly improved flow through the anterior tibial artery despite our best efforts and hours of work with angioplasty and stenting, but we are hopeful that at least some flow is improved. At this point, I do not think any further revascularization is indicated. I do think the patient would benefit significantly from smoking cessation and we went over this again post procedure. He should walk daily and quit smoking to improve collateral flow to the anterior tibial artery and peroneal artery, and diminish the risk of failure of his bypass. JOSE ELIAS HENDRICKSON MD May 02, 2019 16:31
== END ==
LOC: M IRPRO 06:33
PROVIDERS: ATTEND Surgery Vascular Surgery
DX: I70.211 Atherosclerosis of native arteries of extremities with intermittent claudication, right leg (principal); I70.92 Chronic total occlusion of artery of the extremities; E78.5 Hyperlipidemia, unspecified; F17.210 Nicotine dependence, cigarettes, uncomplicated; F32.9 Major depressive disorder, single episode, unspecified; K21.9 Gastro-esophageal reflux disease without esophagitis; I10 Essential (primary) hypertension; I25.10 Atherosclerotic heart disease of native coronary artery without angina pectoris; I35.8 Other nonrheumatic aortic valve disorders; M12.9 Arthropathy, unspecified; R01.1 Cardiac murmur, unspecified; Z79.01 Long term (current) use of anticoagulants; Z79.899 Other long term (current) drug therapy
CPT/HCPCS: 37211; 37226; 37228; 75710; 80048; 85027; 99152; 99153; C1725; C1729; C1769; C1876; C1887; C1894; J1644; J1885; J2250; J2997; J3010; Q9967

== ENCOUNTER → 2019-05-13 | Outpatient (CLI) | payer MEDICARE, BC ==
[~2019-05-13] MED LIST changes: -ALTEPLASE 2MG/2ML VIAL As Ordered ONE; -ISOVUE-300 61% 50ML VIAL As Ordered ONE; -KETOROLAC 30 MG/ML 1ML VIAL As Ordered ONE; -LIDOCAINE 1% MDV 20ML VIAL As Ordered ONE; -MIDAZOLAM INJ 2MG/2ML VIAL (J2250 PER 1MG) As Ordered ONE; -fentaNYL 100 MCG/2 ML INJECTION (J3010) As Ordered ONE
--- NOTE | 2019-05-13 15:23 | REP ---
REASON FOR EXAM: Peripheral vascular disease. COMPARISON: None. There is echogenic material seen along the carotid arterial [place] some of which casts an acoustic shadow consistent with calcific deposition. RIGHT LEFT CCA systolic 101.3 cm/s 115.9 cm/s CCA diastolic 11.3 cm/s 20.8 cm/s ICA systolic 87.7 cm/s 45.7cm/s ICA diastolic 20.8 cm/s 11.1 cm/s ICA/CCA ratio 0.8 0.3 Analysis of the spectral waveforms shows no evidence of significant spectral broadening. There is antegrade flow seen in both vertebral arteries. IMPRESSION: According to the NASCET consensus criteria, there is a less than 50% stenosis of the internal carotid artery bilaterally. This is secondary to both calcified and noncalcified plaque formation. It should be stated that the relatively low peak systolic velocity of the left internal carotid artery could indicate a more distal stenosis. Consider followup with MRA. Electronically Signed by Uriel Lam DO 05/13/2019 03:50 P
--- NOTE | 2019-05-13 15:37 | REP ---
Bilateral lower extremity arterial Doppler ultrasound: History: Peripheral vascular disease. Bypass graft. On april 28 04/29/2019 the patient underwent multilevel angioplasty and right superficial femoral artery and popliteal artery stent placement. Comparison study January 24, 2019. Findings: Ankle brachial indices measure 0.93 on the right and 0.8 on the left. The right common femoral artery and posterior tibial artery graft appears patent. The [place] superficial femoral artery on the right is felt to be occluded, as are the popliteal and proximal anterior tibial artery on the right. Flow reversal is seen in the distal anterior tibial artery on the right. On the left, there is significant narrowing with a 2:1 velocity increase in the mid to distal superficial femoral artery. Ankle brachial index is lower on the left than previously. Arterial wave forms are predominately biphasic in the left lower extremity. Right fem-pop graft: Proximal 154 cm/S Proximal mid graft 78 cm/S Mid graft 87 Distal graft 125 Distal anastomoses with a posterior tibial artery 89 cm/S [place] posterior tibial artery 89 cm/S Right lower extremity arterial Doppler velocity chart Right CF A 158 cm/S Profunda 138 Proximal SFA occluded Mid SFA occluded Distal SFA occluded Popliteal occluded Proximal AT A occluded Distal FINANCIAL AID ADVISOR 108 Distal AT A reversed flow. Left lower extremity arterial Doppler velocity chart: CF A 149 cm/S Profunda 107 Proximal SFA 98 Mid SFA 123/193 Distal SFA 199 Popliteal 104 Proximal AT A 82 Tibioperoneal trunk 49 Proximal FINANCIAL AID ADVISOR 78 Distal FINANCIAL AID ADVISOR 53 Distal AT A 62 Electronically Signed by Javid Borges MD 05/13/2019 03:28 P
== END ==
LOC: M RAD 12:57
PROVIDERS: ATTEND Physician Assistant
DX: I65.23 Occlusion and stenosis of bilateral carotid arteries (principal); I73.9 Peripheral vascular disease, unspecified

== ENCOUNTER → 2019-07-21 | Outpatient (REF) | payer MEDICARE ==
[2019-07-21 13:58] LABS: BASO % 0.4 % (0.0-1.0); EOS % 0.6 % (0.0-3.0); HEMATOCRIT 42.6 % (42.0-52.0); LYMPH # 1.3 10^3/uL (1.5-5.0); MEAN CORPUSCULAR HEMOGLOBIN 31.3 pg (27.0-33.0); MEAN CORPUSCULAR HGB CONC 35.2 g/dl (32.0-36.5); MEAN CORPUSCULAR VOLUME 88.9 fl (80.0-96.0); MONO # 0.7 10^3/uL (0.0-0.8); MONO % 10.2 % (0.0-5.0); NEUTROPHILS # 5.1 10^3/uL (1.5-8.5); NEUTROPHILS % 70.4 % (36.0-66.0); PLATELET COUNT, AUTOMATED 311 10^3/uL (150-450); RED BLOOD COUNT 4.79 10^6/uL (4.30-6.10); WHITE BLOOD COUNT 7.2 10^3/uL (4.0-10.0)
[2019-07-21 14:04] LABS: HEMOGLOBIN A1c 5.8 %
[2019-07-21 14:10] LABS: ALBUMIN 4.1 GM/DL (3.2-5.2); ALT/SGPT 57 U/L (12-78); BILIRUBIN,TOTAL 0.7 MG/DL (0.2-1.0); BLOOD UREA NITROGEN 11 MG/DL (7-18); CALCIUM LEVEL 9.7 MG/DL (8.8-10.2); CARBON DIOXIDE LEVEL 30 MEQ/L (21-32); CHLORIDE LEVEL 98 MEQ/L (98-107); CHOLESTEROL LEVEL 156 MG/DL (<200); CHOLESTEROL RISK RATIO 2.363 (<5); CREATININE FOR GFR 0.86 MG/DL (0.70-1.30); FREE T4 0.89 NG/DL (0.76-1.46); GLOMERULAR FILTRATION RATE > 60.0 (>49); GLUCOSE, FASTING 104 MG/DL (70-100); HDL CHOLESTEROL 66 MG/DL (>40); LDL CHOLESTEROL 77 MG/DL (<100); NON-HDL-C 90 MG/DL; POTASSIUM SERUM 5.2 MEQ/L (3.5-5.1); SODIUM LEVEL 134 MEQ/L (136-145); TOTAL PROTEIN 7.5 GM/DL (6.4-8.2); TRIGLYCERIDES LEVEL 63 MG/DL (<150)
== END ==
LOC: M SFHCPLAZ 10:44
PROVIDERS: ATTEND Physician Assistant Medical
DX: I10 Essential (primary) hypertension (principal); F41.8 Other specified anxiety disorders; E66.09 Other obesity due to excess calories; Z13.220 Encounter for screening for lipoid disorders; Z79.899 Other long term (current) drug therapy

== ENCOUNTER → 2019-08-03 | Outpatient (CLI) | payer MEDICARE ==
[~2019-08-03] MED LIST changes: +ISOVUE-370 76% 100ML VIAL As Ordered ONE
--- NOTE | 2019-08-03 14:32 | REP ---
CT ANGIOGRAPHY OF THE ABDOMEN, PELVIS, AND RUNOFF ARTERIES WITH IV CONTRAST: HISTORY: Atherosclerosis. Intermittent claudication bilateral legs. CT CONTRAST DOSE: 100 mL of intravenous Isovue 370. Comparison CT angiography is from January 19, 2015. This showed bilateral common iliac artery stenosis, bilateral superficial femoral artery stenosis, and a right popliteal artery occlusion. Bilateral lower extremity arterial Doppler ultrasound May 13, 2019 showed a patent right common femoral to posterior tibial artery graft with occlusion of the [place] right superficial femoral popliteal and proximal anterior tibial arteries on the right and a stenosis in the superficial femoral artery on the left. TECHNIQUE: Helical scanning is acquired. 3 mm axial images are reformatted. Coronal and sagittal MPR and MIP images are generated. Surface rendered 3D images are generated. FINDINGS: There is atherosclerotic calcific plaquing at the origin of the celiac axis but no high-grade stenosis is seen. The superior mesenteric artery origin is calcified and there is a 50% stenosis. Calcification is seen at the origin of singular renal arteries but no high-grade stenosis is seen on either side. The inferior mesenteric artery is patent. The aorta is normal in caliber and heavily calcified. The common iliac arteries a calcified extensively and bilaterally. There is evidence of a stent in place in the common iliac artery on the right since the prior study. Some luminal narrowing persists at the distal end of the stent and there is luminal narrowing in the calcified proximal iliac on the left. Atherosclerotic plaquing is seen with luminal narrowing in the proximal external iliac artery left greater than right. The external iliac arteries are patent. The common iliac arteries are patent bilaterally but heavily calcified. In the right thigh, the [place] superficial femoral artery is occluded from its origin. There is an elongate but occluded stent in the [place] superficial femoral artery on the left extending to the popliteal without evidence of flow. There is a patent graft in the right thigh parallel to the [place] vessels which appears to extend distally to the tibioperoneal trunk and posterior tibial artery. There is straight line flow in the posterior tibial artery to the ankle. There is atherosclerotic calcification in the proximal anterior tibial. I do not see flow in either of the anterior tibial or peroneal proximally. Distally peroneal flow is observed consistent with a reconstitution. In the left lower extremity there is moderate atherosclerotic plaquing at the common femoral artery bifurcation but both profunda and [place] superficial femoral are patent. Calcific plaquing is seen multifocal areas of the superficial femoral with high-grade stenosis in the adductor canal on the left due to calcific plaquing. There is calcific plaquing of the popliteal artery with moderate luminal narrowing of the popliteal. The calf trifurcation is patent on the left and three-vessel calf runoff is seen to the distal calf. I cannot follow the vessel enhancement across the ankle which may be due to timing. IMPRESSION: Extensive atherosclerotic changes. The [place] superficial femoral artery on the right is occluded including the previously placed stent. There is a patent right of fem/pop graft connecting to the posterior tibial artery on the right. There is a high-grade stenosis in the adductor canal in the superficial femoral artery on the left and some popliteal narrowing and left external iliac artery narrowing is visualized. Electronically Signed by Javid Borges MD 08/03/2019 03:01 P
== END ==
LOC: M RAD 10:20
PROVIDERS: ATTEND Physician Assistant
DX: I70.213 Atherosclerosis of native arteries of extremities with intermittent claudication, bilateral legs (principal)
CPT/HCPCS: 75635; Q9967

== ENCOUNTER → 2019-11-10 | Outpatient (CLI) | payer MEDICARE ==
[~2019-11-10] MED LIST changes: -ISOVUE-370 76% 100ML VIAL As Ordered ONE; +PANT40TA29 PO; -PANT40TA3 PO
--- NOTE | 2019-11-16 08:37 | REP ---
CAROTID ULTRASOUND COMPARISON: 05/13/2019. HISTORY: Stenosis. FINDINGS: Real-time sonographic evaluation and duplex Doppler interrogation of the extracranial carotid vasculature was performed. Once again, there was scattered mild to moderate partially calcified plaque throughout the common carotid arteries, internal carotid arteries, and external carotid arteries. There is again luminal narrowing, less than 50%. There is no compelling duplex Doppler sonographic evidence of hemodynamically significant stenosis bilaterally. Normal flow velocities are recorded. There is normal direction of flow in both vertebral arteries. PEAK SYSTOLIC VELOCITY RIGHT cm/s LEFT cm/s ICA 92.0 71.0 End-diastolic velocity ICA 18.0 21.1 Peak systolic velocity CCA 108.5 126.9 Peak systolic velocity ECA 100.3 78.7 ICA to CCA ratio 1.13 1.88 IMPRESSION: No change since prior study. Luminal narrowing of the internal carotid arteries less than 50%. No compelling duplex Doppler sonographic evidence of hemodynamically significant stenosis bilaterally. MTDD
== END ==
LOC: M RAD 09:45
PROVIDERS: ATTEND Surgery Vascular Surgery
DX: I65.23 Occlusion and stenosis of bilateral carotid arteries (principal)

== ENCOUNTER → 2019-11-17 | Outpatient (CLI) | payer MEDICARE ==
--- NOTE | 2019-11-22 08:14 | REP ---
BILATERAL LOWER EXTREMITY ARTERIAL DOPPLER ULTRASOUND: HISTORY: Atherosclerosis. Intermittent bilateral extremity claudication. SONOGRAPHIC FINDINGS: Atherosclerotic changes are seen moderate in degree. The ankle bronchial indices are normal and measure at 1.0 bilaterally. The [place] right superficial femoral artery and right popliteal artery are occluded. There is a patent right fem posterior tibial artery bypass graft. The distal ETA flow is reversed on the right. On the left there is a 2-1 velocity ratio stenosis in the mid SFA. Biphasic arterial waveforms are noted bilaterally. VELOCITY CHART RIGHT LEG BYPASS GRAFT: Proximal Graft PSV 44 cm/s MID Graft 55 Distal Graft 74 Knee level 51 Proximal Calf 50 PROCESS ENGINEERING INTERN anastomosis 28 RIGHT LOWER EXTREMITY [place] ARTERIAL DOPPLER VELOCITY CHART: Right AMBULANCE DRIVER PSV 113 cm/s Profunda 120 Proximal SFA Occluded Mid SFA Occluded Distal SFA Occluded Popliteal Occluded Proximal DEMETRIO 40 Tibial peroneal trunk Occluded Proximal PROCESS ENGINEERING INTERN 70 Distal PROCESS ENGINEERING INTERN 145 Distal DEMETRIO 44 reversed LEFT LOWER EXTREMITY ARTERIAL DOPPLER VELOCITY CHART: Left SFA/PSV 122 cm/s Profunda 77 Proximal SFA 100 Mid SFA 158/180 Distal SFA 80 Popliteal 59 Proximal DEMETRIO 79 Tibial peroneal trunk 45 Proximal PROCESS ENGINEERING INTERN 40 Distal PROCESS ENGINEERING INTERN 45 Distal DEMETRIO 34 MTDD
== END ==
LOC: M RAD 09:27
PROVIDERS: ATTEND Physician Assistant
DX: R91.8 Other nonspecific abnormal finding of lung field (principal); I70.213 Atherosclerosis of native arteries of extremities with intermittent claudication, bilateral legs

== ENCOUNTER → 2019-12-09 | Outpatient (REF) | payer MEDICARE ==
[2019-12-09 15:45] LABS: BASO % 0.4 % (0.0-1.0); EOS # 0.1 10^3/uL (0.0-0.5); EOS % 0.7 % (0.0-3.0); HEMATOCRIT 36.8 % (42.0-52.0); HEMOGLOBIN 12.1 g/dl (13.5-17.5); LYMPH # 1.5 10^3/uL (1.5-5.0); LYMPH % 21.8 % (24.0-44.0); MEAN CORPUSCULAR HEMOGLOBIN 28.1 pg (27.0-33.0); MEAN CORPUSCULAR HGB CONC 32.9 g/dl (32.0-36.5); MEAN CORPUSCULAR VOLUME 85.4 fl (80.0-96.0); MONO # 0.8 10^3/uL (0.0-0.8); MONO % 12.2 % (0.0-5.0); NEUTROPHILS # 4.3 10^3/uL (1.5-8.5); NEUTROPHILS % 64.3 % (36.0-66.0); PLATELET COUNT, AUTOMATED 432 10^3/uL (150-450); RED BLOOD COUNT 4.31 10^6/uL (4.30-6.10); WHITE BLOOD COUNT 6.7 10^3/uL (4.0-10.0)
[2019-12-09 16:12] LABS: ERYTHROCYTE SEDIMENTATION RATE 8 mm/hr (0-20)
[2019-12-09 16:16] LABS: ALBUMIN 4.1 GM/DL (3.2-5.2); ALT/SGPT 40 U/L (12-78); BILIRUBIN,TOTAL 0.6 MG/DL (0.2-1.0); BLOOD UREA NITROGEN 10 MG/DL (7-18); C REACTIVE PROTEIN QUANTITATIV 0.37 MG/DL (0.00-0.30); CALCIUM LEVEL 9.6 MG/DL (8.8-10.2); CARBON DIOXIDE LEVEL 30 MEQ/L (21-32); CHLORIDE LEVEL 96 MEQ/L (98-107); CPK CREATINE PHOSPHOKINASE 118 U/L (39-308); CREATININE FOR GFR 0.82 MG/DL (0.70-1.30); FREE T4 0.85 NG/DL (0.76-1.46); GLOMERULAR FILTRATION RATE > 60.0 (>49); GLUCOSE, FASTING 99 MG/DL (70-100); MAGNESIUM LEVEL 2.3 MG/DL (1.8-2.4); POTASSIUM SERUM 4.6 MEQ/L (3.5-5.1); SODIUM LEVEL 132 MEQ/L (136-145); TOTAL PROTEIN 7.6 GM/DL (6.4-8.2)
== END ==
LOC: M SFHCPLAZ 12:37
PROVIDERS: ATTEND Physician Assistant Medical
DX: M50.30 Other cervical disc degeneration, unspecified cervical region (principal); E78.00 Pure hypercholesterolemia, unspecified; F41.8 Other specified anxiety disorders; I10 Essential (primary) hypertension

== ENCOUNTER → 2019-12-12 | Outpatient (REF) | payer MEDICARE ==
[2019-12-12 13:05] LABS: BASO % 0.7 % (0.0-1.0); EOS % 0.7 % (0.0-3.0); HEMATOCRIT 36.7 % (42.0-52.0); HEMOGLOBIN 12.2 g/dl (13.5-17.5); LYMPH # 1.5 10^3/uL (1.5-5.0); LYMPH % 24.7 % (24.0-44.0); MEAN CORPUSCULAR HEMOGLOBIN 28.5 pg (27.0-33.0); MEAN CORPUSCULAR HGB CONC 33.2 g/dl (32.0-36.5); MEAN CORPUSCULAR VOLUME 85.7 fl (80.0-96.0); MONO # 0.7 10^3/uL (0.0-0.8); MONO % 11.3 % (0.0-5.0); NEUTROPHILS # 3.8 10^3/uL (1.5-8.5); NEUTROPHILS % 62.1 % (36.0-66.0); PLATELET COUNT, AUTOMATED 409 10^3/uL (150-450); RED BLOOD COUNT 4.28 10^6/uL (4.30-6.10); WHITE BLOOD COUNT 6.1 10^3/uL (4.0-10.0)
[2019-12-12 17:16] LABS: FERRITIN 17 NG/ML (26-388); IRON (FE) 22 UG/DL (65-175)
== END ==
LOC: M PLALAB 10:41
PROVIDERS: ATTEND Physician Assistant Medical
DX: D50.9 Iron deficiency anemia, unspecified (principal)

== ENCOUNTER → 2019-12-19 | Outpatient (REF) | payer MEDICARE ==
[2019-12-19 13:54] LABS: BASO # 0.1 10^3/uL (0.0-0.2); BASO % 0.9 % (0.0-1.0); EOS # 0.1 10^3/uL (0.0-0.5); EOS % 0.9 % (0.0-3.0); HEMATOCRIT 34.1 % (42.0-52.0); HEMOGLOBIN 11.1 g/dl (13.5-17.5); LYMPH # 1.2 10^3/uL (1.5-5.0); LYMPH % 21.7 % (24.0-44.0); MEAN CORPUSCULAR HEMOGLOBIN 27.3 pg (27.0-33.0); MEAN CORPUSCULAR HGB CONC 32.6 g/dl (32.0-36.5); MONO # 0.7 10^3/uL (0.0-0.8); MONO % 12.8 % (0.0-5.0); NEUTROPHILS # 3.6 10^3/uL (1.5-8.5); NEUTROPHILS % 63.2 % (36.0-66.0); PLATELET COUNT, AUTOMATED 426 10^3/uL (150-450); RED BLOOD COUNT 4.06 10^6/uL (4.30-6.10); WHITE BLOOD COUNT 5.6 10^3/uL (4.0-10.0)
== END ==
LOC: M PLALAB 10:49
PROVIDERS: ATTEND Physician Assistant Medical
DX: D50.9 Iron deficiency anemia, unspecified (principal)

== ENCOUNTER → 2019-12-28 | Outpatient (REF) | payer MEDICARE ==
[2019-12-28 13:49] LABS: BASO # 0.1 10^3/uL (0.0-0.2); BASO % 0.8 % (0.0-1.0); EOS # 0.1 10^3/uL (0.0-0.5); HEMATOCRIT 33.9 % (42.0-52.0); HEMOGLOBIN 10.9 g/dl (13.5-17.5); LYMPH # 1.6 10^3/uL (1.5-5.0); LYMPH % 24.9 % (24.0-44.0); MEAN CORPUSCULAR HEMOGLOBIN 26.8 pg (27.0-33.0); MEAN CORPUSCULAR HGB CONC 32.2 g/dl (32.0-36.5); MEAN CORPUSCULAR VOLUME 83.3 fl (80.0-96.0); MONO # 0.8 10^3/uL (0.0-0.8); NEUTROPHILS # 3.8 10^3/uL (1.5-8.5); NEUTROPHILS % 60.5 % (36.0-66.0); PLATELET COUNT, AUTOMATED 432 10^3/uL (150-450); RED BLOOD COUNT 4.07 10^6/uL (4.30-6.10); WHITE BLOOD COUNT 6.3 10^3/uL (4.0-10.0)
== END ==
LOC: M PLALAB 11:27
PROVIDERS: ATTEND Physician Assistant Medical
DX: D50.9 Iron deficiency anemia, unspecified (principal)

== ENCOUNTER → 2020-01-17 | Outpatient (REF) | payer MEDICARE ==
[~2020-01-17] MED LIST changes: +DICL1GEL3 TOP; +EQL50TAB2 PO; +NORT25CA2; +TAMS1CAP17
[2020-01-17 16:00] LABS: BASO % 0.5 % (0.0-1.0); EOS # 0.1 10^3/uL (0.0-0.5); EOS % 0.7 % (0.0-3.0); HEMATOCRIT 30.3 % (42.0-52.0); HEMOGLOBIN 9.8 g/dl (13.5-17.5); LYMPH # 1.6 10^3/uL (1.5-5.0); LYMPH % 19.4 % (24.0-44.0); MEAN CORPUSCULAR HEMOGLOBIN 25.8 pg (27.0-33.0); MEAN CORPUSCULAR HGB CONC 32.3 g/dl (32.0-36.5); MEAN CORPUSCULAR VOLUME 79.7 fl (80.0-96.0); MONO # 1.1 10^3/uL (0.0-0.8); MONO % 13.4 % (0.0-5.0); NEUTROPHILS # 5.2 10^3/uL (1.5-8.5); NEUTROPHILS % 65.4 % (36.0-66.0); PLATELET COUNT, AUTOMATED 479 10^3/uL (150-450)
[2020-01-17 16:02] LABS: ALBUMIN 3.8 GM/DL (3.2-5.2); ALT/SGPT 30 U/L (12-78); BILIRUBIN,TOTAL 0.3 MG/DL (0.2-1.0); BLOOD UREA NITROGEN 10 MG/DL (7-18); CARBON DIOXIDE LEVEL 27 MEQ/L (21-32); CHLORIDE LEVEL 97 MEQ/L (98-107); CK-MB VALUE MASS 1.9 NG/ML (<3.6); CPK CREATINE PHOSPHOKINASE 124 U/L (39-308); CREATININE FOR GFR 0.82 MG/DL (0.70-1.30); FERRITIN 17 NG/ML (26-388); GLOMERULAR FILTRATION RATE > 60.0 (>49); GLUCOSE, FASTING 78 MG/DL (70-100); IRON (FE) 20 UG/DL (65-175); MAGNESIUM LEVEL 2.4 MG/DL (1.8-2.4); MB/CK RELATIVE INDEX 1.53 (< OR =4); SODIUM LEVEL 130 MEQ/L (136-145); TOTAL PROTEIN 6.9 GM/DL (6.4-8.2); TROPONIN I < 0.02 NG/ML (< 0.10)
== END ==
LOC: M SFHCPLAZ 13:21
PROVIDERS: ATTEND Physician Assistant Medical
DX: D50.9 Iron deficiency anemia, unspecified (principal); R55 Syncope and collapse

== ENCOUNTER 2020-01-18 11:02 | Emergency (ER) | payer MEDICARE ==
[~2020-01-18] VITALS: Ht 180.3 cm; Wt 95.6 kg
[~2020-01-18 11:02] MED LIST changes: -DICL1GEL3 TOP; -EQL50TAB2 PO; -NORT25CA2; -TAMS1CAP17
[2020-01-18] MEDS ORDERED: DICL1GEL3 TOP (11:17)
[2020-01-18] MEDS ORDERED: NORT25CA2 (11:17)
[2020-01-18] MEDS ORDERED: EQL50TAB2 PO (11:17)
[2020-01-18] MEDS ORDERED: TAMS1CAP17 (11:18)
[2020-01-18] MEDS ORDERED: ISOVUE-370 76% 100ML VIAL As Ordered ONE (11:55)
[2020-01-18 12:47] LABS: RSV AMPLIFICATION NEGATIVE (NEGATIVE)
[2020-01-18 12:50] LABS: CK-MB VALUE MASS 2.7 NG/ML (<3.6); CPK CREATINE PHOSPHOKINASE 155 U/L (39-308); LIPASE 107 U/L (73-393); MB/CK RELATIVE INDEX 1.74 (< OR =4); NT-PRO BNP 69 PG/ML (<125); TROPONIN I < 0.02 NG/ML (< 0.10)
[2020-01-18] MEDS ORDERED: LORazepam 2 MG TAB PO STA (13:22)
--- NOTE | 2020-01-18 13:41 | REP ---
INDICATION: elevated d-dimer sob. COMPARISON: None. TECHNIQUE: CT of the chest with IV contrast, pulmonary artery CT angio protocol. FINDINGS: The thoracic aorta and pulmonary veins are opacified to a greater degree than the pulmonary arteries. This results in beam hardening artifact projected over the central main right and left pulmonary arteries and suboptimal opacification of the peripheral pulmonary arteries artery the study less sensitive than usual. There are no large emboli in the pulmonary trunk or central pulmonary arteries. No definite emboli are identified in the peripheral pulmonary arteries. There are no infiltrates or pleural effusions. There are no lung masses or nodules. There is no mediastinal or hilar lymph node enlargement. There is no axillary lymph node enlargement. The thoracic aorta is unremarkable. Cardiac size is normal. There is no pericardial effusion. The visualized upper abdominal contents are unremarkable. IMPRESSION: No pulmonary emboli are identified, however, the study is less sensitive than usual because of bolus timing. Otherwise, negative CT study of the chest. <Electronically signed by Xander Bonilla > 01/18/20 [id number]
[2020-01-18 15:33] VITALS: BP 148/70
--- NOTE | 2020-01-18 20:58 | ECGEPIP ---
[facility] - ED Test Date: 2020-01-18 Pat Name: HIRAL FERREIRA Department: Room: - Gender: Male Beam Department Supervisor: TIEN : 1960 Requested By: Norma Alarcon Order Number: [id number] Reading MD: Norma Alarcon Measurements Intervals [place] Rate: 68 P: 33 OK: 140 QRS: 19 QRSD: 92 T: 34 QT: 406 QTc: 435 Interpretive Statements SINUS RHYTHM DECREASED RATE 11/07/16 Electronically Signed on 01-18-2020 20:57:50 EST by Norma Alarcon
== END 2020-01-18 15:47 | disposition home or self-care (01) ==
LOC: M ED 11:02
DX: R55 Syncope and collapse (principal); R06.02 Shortness of breath; F33.9 Major depressive disorder, recurrent, unspecified; F41.9 Anxiety disorder, unspecified; I35.0 Nonrheumatic aortic (valve) stenosis; I73.9 Peripheral vascular disease, unspecified; Z79.899 Other long term (current) drug therapy; Z87.891 Personal history of nicotine dependence
CPT/HCPCS: 36415; 71275; 82550; 82553; 83690; 83880; 84484; 87631; 93005; 93041; 94760; 99285; Q9967

== ENCOUNTER → 2020-01-24 | Outpatient (REF) | payer MEDICARE ==
[~2020-01-24] MED LIST changes: +DICL1GEL3 TOP; +EQL50TAB2 PO; +NORT25CA2; +TAMS1CAP17
[2020-01-24 14:06] LABS: BASO # 0.1 10^3/uL (0.0-0.2); BASO % 0.8 % (0.0-1.0); EOS # 0.1 10^3/uL (0.0-0.5); EOS % 0.8 % (0.0-3.0); HEMOGLOBIN 10.7 g/dl (13.5-17.5); LYMPH # 1.2 10^3/uL (1.5-5.0); LYMPH % 19.9 % (24.0-44.0); MEAN CORPUSCULAR HEMOGLOBIN 25.7 pg (27.0-33.0); MEAN CORPUSCULAR HGB CONC 31.5 g/dl (32.0-36.5); MEAN CORPUSCULAR VOLUME 81.5 fl (80.0-96.0); MONO # 0.8 10^3/uL (0.0-0.8); MONO % 13.5 % (0.0-5.0); NEUTROPHILS # 3.8 10^3/uL (1.5-8.5); NEUTROPHILS % 64.2 % (36.0-66.0); PLATELET COUNT, AUTOMATED 485 10^3/uL (150-450); RED BLOOD COUNT 4.17 10^6/uL (4.30-6.10)
[2020-01-25 15:08] LABS: H PYLORI SERUM QUANT IGA <9.0 units (0.0-8.9); H PYLORI SERUM QUANT IGM <9.0 units (0.0-8.9)
== END ==
LOC: M SFHCPLAZ 10:51
PROVIDERS: ATTEND Physician Assistant Medical
DX: D50.9 Iron deficiency anemia, unspecified (principal); K21.00 Gastro-esophageal reflux disease with esophagitis, without bleeding

== ENCOUNTER → 2020-01-26 | Outpatient (CLI) | payer MEDICARE ==
[~2020-01-26] MED LIST changes: +ISOVUE-370 76% 100ML VIAL As Ordered ONE
--- NOTE | 2020-01-26 11:23 | REPVR ---
PROCEDURE INFORMATION: Exam: CT Head Without And With Contrast Exam date and time: 01/26/2020 11:05 AM Age: 59 years old Clinical indication: Syncope and collapse TECHNIQUE: Imaging protocol: Computed tomography of the head without and with intravenous contrast. Radiation optimization: All CT scans at this facility use at least one of these dose optimization techniques: automated exposure control; mA and/or kV adjustment per patient size (includes targeted exams where dose is matched to clinical indication); or iterative reconstruction. Contrast material: ISOVUE 370; Contrast volume: 75 ml; Contrast route: INTRAVENOUS (IV); COMPARISON: No relevant prior studies available. FINDINGS: Brain: There is no acute intracranial hemorrhage or mass effect. Mild diffuse volume loss is within the range of normal for patient age. There are small vessel ischemic changes within the periventricular and subcortical white matter, but the normal infante/white matter delineation is maintained. There is an incidental high right parietal developmental venous anomaly. There is no abnormal enhancement within the brain. Cerebral ventricles: No ventriculomegaly. Bones/joints: Unremarkable. No acute fracture. Paranasal sinuses: Visualized sinuses are unremarkable. No fluid levels. Mastoid air cells: Visualized mastoid air cells are well aerated. Soft tissues: There is no soft tissue swelling. IMPRESSION: No acute intracranial abnormality. Electronically signed by: Yanira Blanco On 01/26/2020 11:23:54 AM
--- NOTE | 2020-01-26 12:27 | REP ---
INDICATION: SYNCOPE. COMPARISON: 11/10/2019. TECHNIQUE: Bilateral carotid artery duplex ultrasound. FINDINGS: Peak flow velocities: Right left Internal carotid artery 79.1 cm/sec 51.7 cm/sec Int. Carotid diastolic 20.7 cm/sec 14.8 cm/sec External carotid artery 67.7 cm/sec 114.0 cm/sec Common carotid arter 128.8 cm/sec 138.8 cm/sec ICA/CCA ratio 0.6 0.3 There is mild atheromatous plaque at the origins of the right ICA and ECA. There is a focal plaque in the distal left CCA The peak flow velocities are normal bilaterally. There is less than 50% narrowing bilaterally. There is no significant stenosis on the right or the left. There is antegrade flow in the vertebral arteries bilaterally. IMPRESSION: No significant stenosis on the right or the left. <Electronically signed by Xander Bonilla > 01/26/20 [id number]
== END ==
LOC: M RAD 09:59
PROVIDERS: ATTEND Physician Assistant Medical
DX: R55 Syncope and collapse (principal)
CPT/HCPCS: 70470; 93880; Q9967

== ENCOUNTER → 2020-01-27 | Outpatient (REF) | payer MEDICARE ==
[~2020-01-27] MED LIST changes: -ISOVUE-370 76% 100ML VIAL As Ordered ONE
== END ==
LOC: M SFHCPLAZ 13:13
PROVIDERS: ATTEND Physician Assistant Medical
DX: K21.00 Gastro-esophageal reflux disease with esophagitis, without bleeding (principal)

== ENCOUNTER → 2020-02-14 | Outpatient (CLI) | payer MEDICARE ==
[~2020-02-14] MED LIST changes: +E-Z-GAS II EFFERVESCENT PACKET (SODIUM BICARB./CITRIC ACID/SIMETHICONE) As Ordered ONE; +E-Z-HD 98% w/w 340GM SUSP BTL As Ordered ONE; +E-Z-PAQUE 96% w/w SUSP 176GM BTL As Ordered ONE
--- NOTE | 2020-02-14 13:20 | REP ---
INDICATION: GERD. TECHNIQUE: This procedure was performed by Velia Trejo [facility], under the direct supervision of Dr. Rodriguez. Images were reviewed with Dr. Rodriguez prior to dictation. Liquid barium and gas producing crystals were given in the erect position, as well as liquid barium in the prone oblique position in order to perform a double contrast upper GI examination. FINDINGS: The administrative office clerk film shows no organomegaly or pathological masses. The intestinal gas pattern is unremarkable. There is fusion rods of the lumbar spine.. The oral and pharyngeal stages of deglutition were unremarkable. Esophageal transport is prompt and efficient and there is no evidence of esophagitis, stricture, or mucosal ring. There is evidence of a hiatal hernia. Gastroesophageal reflux was visualized to the level of the marlee. The stomach escamilla are normally outlined. The rugal folds are smooth and regular. There is no gastritis, neoplasm, or ulcerative disease. The duodenal escamlila are normally outlined. The mucosal folds are smooth and regular. There is no duodenitis, peptic ulcer disease or neoplasm. The visualized portion of the proximal small bowel appears normal in course and caliber. IMPRESSION: 1. Hiatal hernia. 2. Gastroesophageal reflux to the level of the marlee. 0.3 minutes of fluoroscopy time was utilized for this procedure. Some fluoroscopic images are performed with last image hold technology. These images require no additional radiation. <Electronically signed by Velia Trejo > 02/14/20 1257 <Electronically signed by Xander Rodriguez > 02/14/20 0033
== END ==
LOC: M RAD 08:27
PROVIDERS: ATTEND Physician Assistant Medical
DX: K21.00 Gastro-esophageal reflux disease with esophagitis, without bleeding (principal); J44.9 Chronic obstructive pulmonary disease, unspecified

== ENCOUNTER → 2020-02-19 | Outpatient (CLI) | payer MEDICARE ==
[~2020-02-19] MED LIST changes: -E-Z-GAS II EFFERVESCENT PACKET (SODIUM BICARB./CITRIC ACID/SIMETHICONE) As Ordered ONE; -E-Z-HD 98% w/w 340GM SUSP BTL As Ordered ONE; -E-Z-PAQUE 96% w/w SUSP 176GM BTL As Ordered ONE
== END ==
LOC: M LABSMTC 11:04
PROVIDERS: ATTEND Internal Medicine Cardiovascular Disease
DX: Z01.812 Encounter for preprocedural laboratory examination (principal); I35.0 Nonrheumatic aortic (valve) stenosis; Z20.822 Contact with and (suspected) exposure to COVID-19

== ENCOUNTER 2020-04-05 08:30 | Inpatient (IN) | payer MEDICARE ==
[~2020-04-05] VITALS: Ht 177.8 cm; Wt 78.0 kg
[2020-04-05] VITALS (11 sets, daily range): BP systolic 119–154; BP diastolic 57–81
[~2020-04-05 08:30] MED LIST changes: -LISI-538 PO; +LISI20TA33 PO; -TAMS1CAP17; +TAMS1CAP17 PO
[2020-04-05] MEDS ORDERED: LISI40TA4 PO (08:39)
[2020-04-05] MEDS ORDERED: PANT40TA29 PO (08:39)
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
--- OUTSIDE RECORDS SUMMARY | 2020-04-05 08:39 | CCD | Continuity of Care Document ---
Author Author Horace MEADOWS MD Organization Unknown Address [address] [place] [address] Phone [phone] Care Team Providers Care Stave Machine Tender Name Role Phone GuzmanyahairaSonal AUTM Problems Active Problems Provider Date Screening for malignant neoplasm of colon Giorgio Meadows MD Onset: 09/09/2016 Benign neoplasm of colon Giorgio Meadows MD Onset: 09/10/19 17 Anal and rectal polyp Giorgio Meadows MD Onset: 09/09/2016 Diverticular disease of colon Giorgio Meadows MD Onset: 02/2016 Residual hemorrhoidal skin tags Giorgio Meadows MD Onset: 0 09/09/2016 Heartburn Giorgio Meadows MD Onset: 09/09/2016 Gastroesophageal reflux disease Giorgio Meadows MD Onset: 0 09/09/2016 Constipation Giorgio Meadows MD Onset: 09/09/2016 Diarrhea Giorgio Meadows MD Onset: 09/09/2016 Alcohol dependence, uncomplicated Giorgio Meadows MD Onset: 09/09/2016 Lumbar radiculopathy RAND Mattson Onset: 09/11/2016 Tobacco use RAND Mattson Onset: 09/11/2016 Lumbosacral stenosis Ayad Salomon MD Onset: 12/02/2016 Essential hypertension Onset: 03/05/2017 Social History Type Date Description Comments Sex Unknown Smokeless Tobacco Never Used Smokeless Tobacco ETOH Use 10-12 Per Week ETOH Use 2-3 A Day beer Recreational Drug Use Current Drug User pot loi y Tobacco Use Start: Unknown Report Cessation Counseling Was Provided Tobacco Use Start: Unknown End: Unknown Patient is a former smoker Pt. smoke 1/2 ppd x 40 years. Quit 07/2019 Smoking Status Reviewed: 12/15/19 Patient is a former smoker Pt . smoke 1/2 ppd x 40 years. Quit 07/2019 Allergies, Adverse Reactions, Alerts Description No Known Drug Allergies Medications Active Medications SIG Qnty Indications Ordering Provide r Date Plavix 75mg Tablets 1 by mouth every day 90tabs Marbella Hendrickson MD 09/04/2017 Lisinopril 40mg Tablets Take One Tablet By Mouth Every Day Unknown Celexa 40mg Tablets 1 by mouth every day Unknown Lipitor 40mg Tablets Once Kassandra ly Unknown Multivitamins Capsules once a day Unknown Pantoprazole Sodium 40mg Tablets D R daily -- one tablet Unknown Chlorthalidone 25mg Tablets 1 po daily Unknown Vitamin B Complex Tablets 1 by mouth every day Unknown Diclofenac Sodium 1% Gel apply to affected area as needed Unknown Nortriptyline HCL 25mg Capsules Sonal Dixon F.N.P. Flomax 0.4mg Capsules 1 every day Unknown Baclofen 10mg Tablets 1 tab by mouth three times a day Unknown Immunizations Description No Information Available Vital Signs Date Vital Result Comment 04/04/2020 2:43pm BP Systolic 151 mmHg BP Diastolic 73 mmHg Height 71 inches 5'11" Weight 214.00 lb BMI (Body Mass Index) 29.8 kg/m2 [place] Body Weight 172 lb Weight 97.070 kg BSA (Body Surface Area) 2.17 m2 12/14/2019 10:20am BP Systolic 136 mmHg L arm 133/77 BP Diastolic 82 mmHg L arm 133/77 Height 71 inches 5'11" Weight 213.12 lb BMI (Body Mass Index) 29.7 kg/m2 [place] Body Weight 172 lb Weight 96.674 kg BSA (Body Surface Area) 2.17 m2 Results Description No Information Available Procedures Description No Information Available Medical Devices Description No Information Available Encounters Type Date Location Provider Dx Diagnosis Office Visit 04/04/2020 3:00p [facility] Giorgio Meadows MD D50.9 Iron deficiency anemia, unspecified Office Visit 12/14/2019 10:15a [facility] RAND Cohen I70.213 Athscl [place] arteries of extrm w intrmt kathy, bi legs Z95.820 Peripheral vascular angiopla sty status w implants and grafts I65.23 Occlusion and stenosis of bi lateral carotid arteries F17.210 Nicotine dependence, cigaret diaz, uncomplicated Assessments Date Code Description Provider 04/04/2020 D50.9 Iron deficiency anemia, unspecif ied Giorgio Meadows MD 12/14/2019 I70.213 Atherosclerosis of n ative arteries of extremities with intermittent claudication, bilateral legs RAND Saeed 12/14/2019 Z95.820 Peripheral vascular angioplasty status with implants and grafts RAND Saeed 12/14/2019 I65.23 Occlusion and stenosis of bilate ral carotid arteries RAND Saeed 12/14/2019 F17.210 Nicotine dependence, cigarettes, uncomplicated RAND Saeed Plan of Treatment 04/04/2020 - Giorgio Meadows MD* D50.9 Iron deficiency anemia, unspecified * * Comments:* Pt with decreasing Hb. He is symptomatic from and anemia standpiont. He feels well right now, but has recently nearly "passed out". Has had some mild Chest pain last week. He is scheduled for Aortic valve surgery this coming thursday. * Recommendations:* I strongly recommended he go to ER now to have transfusion today as soon as possible. Will have him admitteed for inpatient procedures. I discussed with CT surgery- Dr Genao SERVICES ACCOUNT MANAGER, who agrees. Functional Status Description No Information Available Mental Status Description No Information Available Referrals Description No Information Available
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
--- OUTSIDE RECORDS SUMMARY | 2020-04-05 08:41 | CCD ---
Author Author [facility] Organization [facility] Address Unknown Phone Unavailable Care Team Providers Care Law Reporter Name Role Phone Genao, Zhandong Unavailable Unavailable Genao, Zhandong Unavailable Unavailable Genao, Zhandong Unavailable Unavailable Genao, Zhandong Unavailable Unavailable Genao, Zhandong Unavailable Unavailable Genao, Zhandong Unavailable Unavailable Genao, Zhandong Unavailable Unavailable Genao, Zhandong Unavailable Unavailable Genao, Zhandong Unavailable Unavailable Genao, Zhandong Unavailable Unavailable Genao, Zhandong Unavailable Unavailable Genao, Zhandong Unavailable Unavailable Genao, Zhandong Unavailable Unavailable Genao, Zhandong Unavailable Unavailable Genao, Zhandong Unavailable Unavailable Genao, Zhandong Unavailable Unavailable Genao, Zhandong Unavailable Unavailable Genao, Zhandong Unavailable Unavailable Genao, Zhandong Unavailable Unavailable Genao, Zhandong Unavailable Unavailable Genao, Zhandong Unavailable Unavailable Genao, Zhandong Unavailable Unavailable Genao, Zhandong Unavailable Unavailable Genao, Zhandong Unavailable Unavailable Genao, Zhandong Unavailable Unavailable Genao, Zhandong Unavailable Unavailable Genao, Zhandong Unavailable Unavailable Genao, Zhandong Unavailable Unavailable Genao, Zhandong Unavailable Unavailable Genao, Zhandong Unavailable Unavailable Genao, Zhandong Unavailable Unavailable Genao, Zhandong Unavailable Unavailable Genao, Zhandong Unavailable Unavailable Genao, Zhandong Unavailable Unavailable Genao, Zhandong Unavailable Unavailable Genao, Zhandong Unavailable Unavailable Genao, Zhandong Unavailable Unavailable Genao, Zhandong Unavailable Unavailable Genao, Zhandong Unavailable Unavailable Genao, Zhandong Unavailable Unavailable Genao, Zhandong Unavailable Unavailable Genao, Zhandong Unavailable Unavailable Genao, Zhandong Unavailable Unavailable Genao, Zhandong Unavailable Unavailable Genao, Zhandong Unavailable Unavailable Genao, Zhandong Unavailable Unavailable Genao, Zhandong Unavailable Unavailable Genao, Zhandong Unavailable Unavailable Genao, Zhandong Unavailable Unavailable Genao, Zhandong Unavailable Unavailable Genao, Zhandong Unavailable Unavailable Genao, Zhandong Unavailable Unavailable Genao, Zhandong Unavailable Unavailable Genao, Zhandong Unavailable Unavailable Genao, Zhandong Unavailable Unavailable Genao, Zhandong Unavailable Unavailable Genao, Zhandong Unavailable Unavailable Henry Villaseñorjtech Unavailable Unavailable Janell Villaseñortech Unavailable Unavailable Janell Villaseñortech Unavailable Unavailable Janell Villaseñortech Unavailable Unavailable Henry Villaseñorjtech Unavailable Unavailable Henry Villaseñorjtech Unavailable Unavailable Henry Villaseñorjtech Unavailable Unavailable Janell Villaseñortech Unavailable Unavailable Loyd Villaseñor MD Unavailable Unavailable Henry Villaseñorjtech Unavailable Unavailable Henry Villaseñorjtech Unavailable Unavailable Henry Villaseñorjtech Unavailable Unavailable Janell Villaseñortech Unavailable Unavailable Loyd Villaseñor MD Unavailable Unavailable Loyd Villaseñor MD Unavailable Unavailable Loyd Villaseñor MD Unavailable Unavailable Henry Villaseñorjtech Unavailable Unavailable Henry Villaseñorjtech Unavailable Unavailable Henry Villaseñorjtech Unavailable Unavailable Henry Villaseñorjtech Unavailable Unavailable Henry Villaseñorjtech Unavailable Unavailable Henry Villaseñorjtech Unavailable Unavailable Henry Villaseñorjtech Unavailable Unavailable Henry Villaseñorjtech Unavailable Unavailable Henry Villaseñorjtech Unavailable Unavailable Henry Villaseñorjtech Unavailable Unavailable Henry Villaseñorjtech Unavailable Unavailable Henry Villaseñorjtech Unavailable Unavailable Henry Villaseñorjtech Unavailable Unavailable SleHenry clarkejtech Unavailable Unavailable SleHenry clarkejtech Unavailable Unavailable Henry Villaseñorjtech Unavailable Unavailable Henry Villaseñorjtech Unavailable Unavailable Henry Villaseñorjtech Unavailable Unavailable SleHenry clarkejtech Unavailable Unavailable Henry Villaseñorjtech Unavailable Unavailable SleHenry clarkejtech Unavailable Unavailable SlemohankaHenryjtech Unavailable Unavailable ColekaHenryjtech Unavailable Unavailable SlemohankaHenryjtech Unavailable Unavailable SlezkaHenryjtech Unavailable Unavailable Slezka Vojtech Unavailable Unavailable Slezka Vojtech Unavailable Unavailable Slezka Vojtech Unavailable Unavailable SlezkaHenryjtech Unavailable Unavailable Slezka Vojtech Unavailable Unavailable Slezka Vojtech Unavailable Unavailable Slezka Vojtech Unavailable Unavailable Slezka Vojtech Unavailable Unavailable Slemohanka Vojtech Unavailable Unavailable Slemohanka Vojtech Unavailable Unavailable SlemohankaHenryjtech Unavailable Unavailable Henry Villaseñorjtech Unavailable Unavailable Henry Villaseñorjtech Unavailable Unavailable Henry Villaseñorjtech Unavailable Unavailable Henry Villaseñorjtech Unavailable Unavailable Henry Villaseñorjtech Unavailable Unavailable Janell Villaseñortech Unavailable Unavailable JMOAR SPEARS MD Unavailable Unavailable JOMAR SPEARS MD Unavailable Unavailable JOMAR SPEARS MD Unavailable Unavailable JOMAR SPEARS MD Unavailable Unavailable JOMAR SPEARS MD Unavailable Unavailable JOMAR SPEARS MD Unavailable Unavailable JOMAR SPEARS MD Unavailable Unavailable JOMAR SPEARS MD Unavailable Unavailable JOMAR SPEARS MD Unavailable Unavailable JOMAR SPEARS MD Unavailable Unavailable JOMAR SPEARS MD Unavailable Unavailable JOMAR SPEARS MD Unavailable Unavailable JOMAR SPEARS MD Unavailable Unavailable JOMAR SPEARS MD Unavailable Unavailable JOMAR SPEARS MD Unavailable Unavailable JOMAR SPEARS MD Unavailable Unavailable JOMAR SPEARS MD Unavailable Unavailable JOMAR SPEARS MD Unavailable Unavailable JOMAR SPEARS MD Unavailable Unavailable JOMAR SPEARS MD Unavailable Unavailable JOMAR SPEARS MD Unavailable Unavailable JOMAR SPEARSOOMarcia SINGLETON Unavailable Unavailable JOMAR SPEARSOOK Unavailable Unavailable JOMAR SPEARSOOK Unavailable Unavailable JOMAR SPEARSOOK Unavailable Unavailable JOMAR SPEARSOOK Unavailable Unavailable JOMAR SPEARSOOK Unavailable Unavailable AFTABWAJOMAR BurciagaOOK Unavailable Unavailable YAMINIIJOMAROOK Unavailable Unavailable AFTABWAJOMAR BurciagaOOK Unavailable Unavailable AFTABWAIJOMAROOK Unavailable Unavailable YAMINIIJOMAROOK Unavailable Unavailable YAMINIIJOMAROOK Unavailable Unavailable JOMAR SPEARSOOK Unavailable Unavailable JOMAR SPEARSOOK Unavailable Unavailable JOMAR SPEARSOOK Unavailable Unavailable YAMINIIJOMAROOK Unavailable Unavailable YAMINIIJOMARK Unavailable Unavailable JOMAR SPEARSOOK Unavailable Unavailable JOMAR SPEARSK Unavailable Unavailable JOMAR SPEARSK Unavailable Unavailable JOMAR SPEARSK Unavailable Unavailable JOMAR SPEARSK Unavailable Unavailable JOMAR SPEARSK Unavailable Unavailable Swatsworth, R Sonal PA Unavailable Unavailable Swatsworth, R Sonal PA Unavailable Unavailable Swatsworth, R Sonal PA Unavailable Unavailable Swatsworth, R Sonal PA Unavailable Unavailable Swatsworth, R Sonal PA Unavailable Unavailable Swatsworth, R Sonal PA Unavailable Unavailable Swatsworth, R Sonal PA Unavailable Unavailable Swatsworth, R Sonal PA Unavailable Unavailable Swatsworth, R Sonal PA Unavailable Unavailable Swatsworth, R Sonal PA Unavailable Unavailable Swatsworth, R Sonal PA Unavailable Unavailable Swatsworth, R Sonal PA Unavailable Unavailable Swatsworth, R Sonal PA Unavailable Unavailable Swatsworth, R Sonal PA Unavailable Unavailable Swatsworth, R Sonal PA Unavailable Unavailable Swatsworth, R Sonal PA Unavailable Unavailable Swatsworth, R Sonal PA Unavailable Unavailable Swatsworth, R Sonal PA Unavailable Unavailable Swatsworth, R Sonal PA Unavailable Unavailable Swatsworth, R Sonal PA Unavailable Unavailable Swatsworth, R Sonal PA Unavailable Unavailable Swatsworth, R Sonal PA Unavailable Unavailable Swatsworth, R Sonal PA Unavailable Unavailable Swatsworth, R Sonal PA Unavailable Unavailable Swatsworth, R Sonal PA Unavailable Unavailable Swatsworth, R Sonal PA Unavailable Unavailable Swatsworth, R Sonal PA Unavailable Unavailable Swatsworth, R Sonal PA Unavailable Unavailable Swatsworth, R Sonal PA Unavailable Unavailable Swatsworth, R Sonal PA Unavailable Unavailable Swatsworth, R Sonal PA Unavailable Unavailable Swatsworth, R Sonal PA Unavailable Unavailable Swatsworth, R Sonal PA Unavailable Unavailable Swatsworth, R Sonal PA Unavailable Unavailable Swatsworth, R Sonal PA Unavailable Unavailable Swatsworth, R Sonal PA Unavailable Unavailable Swatsworth, R Sonal PA Unavailable Unavailable Swatsworth, R Sonal PA Unavailable Unavailable Swatsworth, R Sonal PA Unavailable Unavailable Swatsworth, R Sonal PA Unavailable Unavailable Swatsworth, R Sonal PA Unavailable Unavailable Swatsworth, R Sonal PA Unavailable Unavailable Swatsworth, R Sonal PA Unavailable Unavailable Swatsworth, R Sonal PA Unavailable Unavailable Swatsworth, R Sonal PA Unavailable Unavailable Swatsworth, R Sonal PA Unavailable Unavailable Swatsworth, R Sonal PA Unavailable Unavailable Swatsworth, R Sonal PA Unavailable Unavailable Mello, L Marianna RPA Unavailable Unavailable Mello, L Marianna RPA Unavailable Unavailable Mello, L Marianna RPA Unavailable Unavailable Mello, L Marianna RPA Unavailable Unavailable Mello, L Marianna RPA Unavailable Unavailable Mello, L Marianna RPA Unavailable Unavailable Mello, L Marianna RPA Unavailable Unavailable Mello, L Marianna RPA Unavailable Unavailable Mello, L Marianna RPA Unavailable Unavailable Mello, L Marianna RPA Unavailable Unavailable Mello, L Marianna RPA Unavailable Unavailable Mello, L Marianna RPA Unavailable Unavailable Mello, L Marianna RPA Unavailable Unavailable Mello, L Marianna RPA Unavailable Unavailable Mello, L Marianna RPA Unavailable Unavailable Mello, L Marianna RPA Unavailable Unavailable Mello, L Marianna RPA Unavailable Unavailable Mello, L Marianna RPA Unavailable Unavailable Mello, L Marianna RPA Unavailable Unavailable Mello, L Marianna RPA Unavailable Unavailable Mello, L Marianna RPA Unavailable Unavailable Mello, L Marianna RPA Unavailable Unavailable Mello, L Marianna RPA Unavailable Unavailable Mello, L Marianna RPA Unavailable Unavailable Mello, L Marianna RPA Unavailable Unavailable Mello, L Marianna RPA Unavailable Unavailable Mello, L Marianna RPA Unavailable Unavailable Mello, L Marianna RPA Unavailable Unavailable Mello, L Marianna RPA Unavailable Unavailable Mello, L Marianna RPA Unavailable Unavailable Mello, L Marianna RPA Unavailable Unavailable Mello, L Marianna RPA Unavailable Unavailable [facility], EKOLB Unavailable Unavailable Detor, M Isac QUALITY ASSURANCE LEAD Unavailable Unavailable Detor, M Isac QUALITY ASSURANCE LEAD Unavailable Unavailable Detor, M Isac QUALITY ASSURANCE LEAD Unavailable Unavailable Detor, M Isac QUALITY ASSURANCE LEAD Unavailable Unavailable Detor, M Isac QUALITY ASSURANCE LEAD Unavailable Unavailable Detor, M Isac QUALITY ASSURANCE LEAD Unavailable Unavailable Detor, M Isac QUALITY ASSURANCE LEAD Unavailable Unavailable Detor, M Isac QUALITY ASSURANCE LEAD Unavailable Unavailable Detor, M Isac QUALITY ASSURANCE LEAD Unavailable Unavailable Detor, M Iasc QUALITY ASSURANCE LEAD Unavailable Unavailable Detor, M Isac QUALITY ASSURANCE LEAD Unavailable Unavailable Detor, M Isac QUALITY ASSURANCE LEAD Unavailable Unavailable Detor, M Isac QUALITY ASSURANCE LEAD Unavailable Unavailable Detor, M Isac QUALITY ASSURANCE LEAD Unavailable Unavailable Detor, M Isac QUALITY ASSURANCE LEAD Unavailable Unavailable Detor, M Isac QUALITY ASSURANCE LEAD Unavailable Unavailable Detor, M Isac QUALITY ASSURANCE LEAD Unavailable Unavailable Detor, M Isac QUALITY ASSURANCE LEAD Unavailable Unavailable Detor, M Isac QUALITY ASSURANCE LEAD Unavailable Unavailable Detor, M Isac QUALITY ASSURANCE LEAD Unavailable Unavailable Detor, M Isac QUALITY ASSURANCE LEAD Unavailable Unavailable Detor, M Isac QUALITY ASSURANCE LEAD Unavailable Unavailable Detor, M Isac QUALITY ASSURANCE LEAD Unavailable Unavailable Detor, M Isac QUALITY ASSURANCE LEAD Unavailable Unavailable Detor, M Isac QUALITY ASSURANCE LEAD Unavailable Unavailable Detor, M Isac QUALITY ASSURANCE LEAD Unavailable Unavailable Detor, M Isac QUALITY ASSURANCE LEAD Unavailable Unavailable Detor, M Isac QUALITY ASSURANCE LEAD Unavailable Unavailable Detor, M Isac QUALITY ASSURANCE LEAD Unavailable Unavailable Detor, M Isac QUALITY ASSURANCE LEAD Unavailable Unavailable Detor, M Isac QUALITY ASSURANCE LEAD Unavailable Unavailable Detor, M Isac QUALITY ASSURANCE LEAD Unavailable Unavailable Detor, M Isac QUALITY ASSURANCE LEAD Unavailable Unavailable Detor, M Isac QUALITY ASSURANCE LEAD Unavailable Unavailable Detor, M Isac QUALITY ASSURANCE LEAD Unavailable Unavailable Detor, M Isac QUALITY ASSURANCE LEAD Unavailable Unavailable [place], Padma Gutiérrez MD Unavailable Unavailable [place], Padma Gutiérrez MD Unavailable Unavailable [place], Padma Gutiérrez MD Unavailable Unavailable [place], Padma Gutiérrez MD Unavailable Unavailable [place], Padma Gutiérrez MD Unavailable Unavailable El-Khally, A Ziad MD Unavailable Unavailable El-Khally, A Ziad MD Unavailable Unavailable El-Khally, A Ziad MD Unavailable Unavailable El-Khally, A Ziad MD Unavailable Unavailable El-Khally, A Ziad MD Unavailable Unavailable El-Khally, A Ziad MD Unavailable Unavailable El-Khally, A Ziad MD Unavailable Unavailable El-Khally, A Ziad MD Unavailable Unavailable El-Khally, A Ziad MD Unavailable Unavailable El-Khally, A Ziad MD Unavailable Unavailable El-Khally, A Ziad MD Unavailable Unavailable El-Khally, A Ziad MD Unavailable Unavailable El-Khally, A Ziad MD Unavailable Unavailable El-Khally, A Ziad MD Unavailable Unavailable El-Khally, A Ziad MD Unavailable Unavailable El-Khally, A Ziad MD Unavailable Unavailable El-Khally, A Ziad MD Unavailable Unavailable El-Khally, A Ziad MD Unavailable Unavailable El-Khally, A Ziad MD Unavailable Unavailable El-Khally, A Ziad MD Unavailable Unavailable El-Khally, A Ziad MD Unavailable Unavailable El-Khally, A Ziad MD Unavailable Unavailable El-Khally, A Ziad MD Unavailable Unavailable El-Khally, A Ziad MD Unavailable Unavailable El-Khally, A Ziad MD Unavailable Unavailable El-Khally, A Ziad MD Unavailable Unavailable El-Khally, A Ziad MD Unavailable Unavailable El-Khally, A Ziad MD Unavailable Unavailable El-Khally, A Ziad MD Unavailable Unavailable El-Khally, A Ziad MD Unavailable Unavailable [place]-Khally, A Ziad MD Unavailable Unavailable [place]-Kh[place], A Ziad MD Unavailable Unavailable El-Khally, A Ziad MD Unavailable Unavailable El-Khally, A Ziad MD Unavailable Unavailable El-Khally, A Ziad MD Unavailable Unavailable REINDL, TISHA SINGLETON Unavailable Unavailable REINDL, TISHA SINGLETON Unavailable Unavailable REINDL, TISHA SINGLETON Unavailable Unavailable REINDL, TISHA SINGLETON Unavailable Unavailable REINDL, TISHA SINGLETON Unavailable Unavailable REINDL, TISHA SINGLETON Unavailable Unavailable REINDL, TISHA SINGLETON Unavailable Unavailable REINDL, TISHA SINGLETON Unavailable Unavailable REINDL, TISHA SINGLETON Unavailable Unavailable REINDL, TISHA SINGLETON Unavailable Unavailable REINDL, TISHA SINGLETON Unavailable Unavailable REINDL, TISHA SINGLETON Unavailable Unavailable REINDL, TISHA SINGLETON Unavailable Unavailable REINDL, TISHA SINGLETON Unavailable Unavailable REINDL, TISHA SINGLETON Unavailable Unavailable REINDL, TISHA SINGLETON Unavailable Unavailable REINDL, TISHA SINGLETON Unavailable Unavailable REINDL, TISHA SINGLETON Unavailable Unavailable REINDL, TISHA SINGLETON Unavailable Unavailable REINDL, TISHA SINGLETON Unavailable Unavailable REINDL, TISHA SINGLETON Unavailable Unavailable REINDL, TISHA SINGLETON Unavailable Unavailable REINDL, TISHA SINGLETON Unavailable Unavailable REINDL, TISHA SINGLETON Unavailable Unavailable REINDL, TISHA SINGLETON Unavailable Unavailable REINDL, TISHA SINGLETON Unavailable Unavailable REINDL, TISHA SINGLETON Unavailable Unavailable REINDL, TISHA SINGLETON Unavailable Unavailable REINDL, TISHA SINGLETON Unavailable Unavailable REINDL, TISHA SINGLETON Unavailable Unavailable REINDL, TISHA SINGLETON Unavailable Unavailable REINDL, TISHA SINGLETON Unavailable Unavailable REINDL, TISHA SINGLETON Unavailable Unavailable REINDL, TISHA SINGLETON Unavailable Unavailable REINDL, TISHA SINGLETON Unavailable Unavailable REINDL, TISHA SINGLETON Unavailable Unavailable REINDL, TISHA SINGLETON Unavailable Unavailable REINDL, TISHA SINGLETON Unavailable Unavailable REINDL, TISHA SINGLETON Unavailable Unavailable REINDL, TISHA SINGLETON Unavailable Unavailable REINDL, TISHA SINGLETON Unavailable Unavailable REINDL, TISHA SINGLETON Unavailable Unavailable REINDL, TISHA SINGLETON Unavailable Unavailable REINDL, TISHA SINGLETON Unavailable Unavailable [place], V ZARINA PA-C Unavailable Unavailable Otto, V ZARINA PA-C Unavailable Unavailable [place], V ZARINA PA-C Unavailable Unavailable [place], V ZARINA PA-C Unavailable Unavailable Otto, V ZARINA PA-C Unavailable Unavailable [place], V ZARINA PA-C Unavailable Unavailable [place], V ZARINA PA-C Unavailable Unavailable Re-disclosure Warning The records that you are about to access may contain information from federally-assisted alcohol or drug abuse programs. If such information is present, then the following federally mandated warning applies: This information has been disclosed to you from records protected by federal confidentiality rules (42 CFR part 2). The federal rules prohibit you from making any further disclosure of this information unless further disclosure is expressly permitted by the written consent of the person to whom it pertains or as otherwise permitted by 42 CFR part 2. A general authorization for the release of medical or other information is NOT sufficient for this purpose. The Federal rules restrict any use of the information to criminally investigate or prosecute any alcohol or drug abuse patient.The records that you are about to access may contain highly sensitive health information, the redisclosure of which is protected by Article 27-F of the [facility] Public Health law. If you continue you may have access to information: Regarding HIV / AIDS; Provided by facilities licensed or operated by the [facility] Office of Mental Health; or Provided by the [facility] Office for People With Developmental Disabilities. If such information is present, then the following [facility] mandated warning applies: This information has been disclosed to you from confidential records which are protected by state law. State law prohibits you from making any further disclosure of this information without the specific written consent of the person to whom it pertains, or as otherwise permitted by law. Any unauthorized further disclosure in violation of state law may result in a fine or long term sentence or both. A general authorization for the release of medical or other information is NOT sufficient authorization for further disc losure. Family History Family Member Name Family Member Gender Family Member Status Date o f Status Description Data Source(s) Unknown Male Problem [facility] ([facility] Unknown Unknown Problem [facility] ([facility], ) maternal grandfather/father Unknown Unknown Problem [facility] ([facility] Encounters Encounter Providers Location Date Indications Data Source(s ) Outpatient Attender: TISHA Alejandra/Shena/Cas [place]al 04/04/2020 02:00:00 PM EST [facility] ([facility] ) Outpatient Attender: Oneil GenaoReferrer: Oneil Dennis S1-[id number].PETER 04/02/2020 12:26:00 PM EST [facility] Outpatient Attender: Oneil GenaoReferrer: Oneil Christianson OB-MOB.PAT 04/02/2020 10:16:54 AM EST - 04/02/2020 11:35:56 AM EST [facility] Outpatient Referrer: Oneil Genao MOB-MOB.PAT 04/02/19 09:34:30 AM EST - 04/02/2020 09:34:36 AM EST [facility] Outpatient Attender: ZARINA GUIDRY.PARK-SJP.PARK 05/2020 12:00:00 AM EST - 03/15/2020 10:50:17 AM EST [facility] Outpatient Referrer: Isac MEZA 03/12/2020 03:49:52 [facility] Outpatient Referrer: Isac MEZA 03/12/2020 03:07:41 P M EST [facility] Inpatient Attender: Zahrakai GenaoAdmitter: Annymaria g Chadwick Dennis S1-OR.PERIOP 02/28/2020 08:52:02 AM EST [facility] MOCAM-MOCAM 02/24/2020 03:01:28 PM EST [facility] Outpatient Attender: Marla Marino MDA dmitter: Marla Marino MDReferrer: Loyd Villaseñor MD [email or web address].CVAU 02/24/2020 06:14:00 AM EST - 02/24/2020 12:35:00 PM EST [facility] Patient discharged. [place] [address] [facility] [address] 02/20/2020 12:00:00 AM EST eCW1 ([facility]) Unknown [address] [facility] [place] [address] 02/20/2020 12:00:00 AM EST eCW1 ([facility]) [place] [address] [facility] [address] 02/20/2020 12:00:00 AM EST eCW1 ([facility]) [place] [address] [facility] [address] 02/16/2020 12:00:00 AM EST eCW1 ([facility]) [place] [address] [facility] [address] 02/14/2020 12:00:00 AM EST eCW1 ([facility]) Outpatient Referrer: Loyd Villaseñor MD SJP.PARK-SJP.[email or web address] 05/2020 12:00:00 AM EST - 02/13/2020 12:12:14 PM EST [facility] [place] [address] [facility] [address] 02/13/2020 12:00:00 AM EST eCW1 ([facility]) Outpatient Attender: Loyd Villaseñor MDReferrer: Callie GORDILLO SJP.PARK-SJP.PARK 02/09/2020 12:00:00 AM EST - 02/09/2020 03:04:06 PM EST [facility] Unknown [address] [facility] [address] 02/06/2020 12:00:00 AM EST eCW1 [facility] [place] [address] [facility] [address] 01/24/2020 12:00:00 AM EST eCW1 ([facility] [place] [address] [facility] [address] 01/19/2020 12:00:00 AM EST eCW1 ([facility] [place] [address] [facility] [address] 01/19/2020 12:00:00 AM EST eCW1 ([facility] [place] [address] [facility] [address] 01/17/2020 12:00:00 AM EST eCW1 ([facility] [place] [address] [facility] [address] 01/16/2020 12:00:00 AM EST eCW1 ([facility]) [place] [address] [facility] [address] 01/03/2020 12:00:00 AM EST eCW1 ([facility]) Outpatient Attender: Marianna Alejandra/[place]or[place]/Magdy/R eindl 12/14/2019 09:15:00 AM EST [facility] ([facility] [place] [address] [facility] [address] 12/09/2019 12:00:00 AM EDT eCW1 ([facility]) [place] [address] [facility] [address] 12/09/2019 12:00:00 AM EDT eCW1 ([facility] Outpatient Attender: Marianna Alejandra/[place]/Magdy/R eindl 08/09/2019 10:15:00 AM EDT [facility] ([facility]) [address] [address] 07/21/2019 12:00:00 AM EDT eCW1 ([facility]) Outpatient Attender: HAYDEN SANCHEZFH LFP 07/19/2019 07:46:28 PM EDT [facility] Outpatient Attender: Marianna Mello RPA [place]/Magdy/R eindl 07/13/2019 10:15:00 AM EDT [facility] ([facility]) Outpatient Attender: Marianna Mello RPA [place]/Magdy/R eindl 06/20/2019 09:00:00 AM EDT [facility] ([facility]) Outpatient Referrer: BASSAM SPEARS MD 06/06/2019 12:18:00 PM EDT [facility] Out[facility] Attender: Marianna Mello RPA [place] 05/09/2019 09:00:00 AM EDT MEDENT ([facility]) [address] [address] 04/22/2019 12:00:00 AM EDT eCW1 ([facility]) [address] [place] [address] 04/20/2019 12:00:00 AM EDT eCW1 ([facility]) [address] [address] 04/15/2019 12:00:00 AM EST eCW1 ([facility]) [address] [address] 04/07/2019 12:00:00 AM EST eCW1 ([facility]) Outpatient Attender: Marianna Mello RPA [place] 03/14/2019 08:00:00 AM EST MEDENT ([facility]) [address] [address] 03/10/2019 12:00:00 AM EST eCW1 ([facility]) [facility] [address] [place] [address] 02/23/2019 12:00:00 AM EST eCW1 ([facility]) Count Includes [facility] [address] [place] [id number] 02/22/2019 12:00:00 AM EST eCW1 ([facility]) [facility] [place] [address] [facility] [address] 02/11/2019 12:00:00 AM EST eCW1 ([facility]) Outpatient Referrer: BASSAM SPEARS MD 02/10/2019 08:01:00 PM EST [facility] Medications Medication Brand Name Start Date Product Form Dose Route Admi nistrative Instructions Pharmacy Instructions Status Indications Reaction Description Data Source(s) 25 mg 03/16/2020 12:00:00 AM EST tablet 30 TAKE ONE TABLET BY MOUTH EVERY DAY TAKE ONE TABLET BY MOUTH EVERY DAY SOLD: 03/22/2020 [facility] Lisinopril 40 MG Oral Tablet lisinopril (PRINIVIL,ZEST RIL) 40 MG tablet lisinopril (PRINIVIL,ZESTRIL) 40 MG tablet 02/26/2020 12:00:00 AM EST 20 mg Oral active Take 0.5 tablets (20 mg total) by mouth daily [facility] Chlorthalidone 25 MG Oral Tablet chlorthalidone (HYGRO TEN) 25 MG tablet chlorthalidone (HYGROTEN) 25 MG tablet 02/26/2020 12:00:00 AM EST 2 5 mg Oral active Take 1 tablet (25 mg tota l) by mouth daily [facility] normal saline flush 0.9 % injection 3 mL [id number] 02/24/2020 02:00:00 PM EST 3 mL Intravenous active 3 mL , Intravenous, PROTOCOL, First dose on Thu02/24/20 at 1400, Pre-op
flush per protocol, D/C Main IV fluid if appropriate
[facility] Medication administered onsite iopamidol (ISOVUE-370) 76 % [id number] 02/24/2020 10:08:03 AM EST active As needed, Starting Thu02/24/20 at 1008, Intra-Procedu re [facility] Medication administered onsite heparin (porcine) injection 32043-986-92 02/24/2020 09:28:46 AM EST active As needed, Starting Thu02/24/20 at 0928, Intra-Procedure [facility] Medication administered onsite 4 ML Verapamil hydrochloride 2.5 MG/ML Injection verap christiane (ISOPTIN) injection verapamil (ISOPTIN) injection 02/24/2020 09:28:36 AM EST active As needed, Starting Thu02/24/20 at 0928, Intra-Procedure [facility] Medication administered onsite lidocaine 1 % injection [id number] 02/24/2020 09:28:10 AM EST active As needed, Starting Thu02/24/20 at 0928, Intra-Procedure [facility] Medication administered onsite 2 ML Midazolam 1 MG/ML Injection midazolam (VERSED) in jection midazolam (VERSED) injection 02/24/2020 09:21:02 AM EST active As needed, Starting Thu02/24/20 at 0921, Intra-Procedure [facility] Medication administered onsite fentaNYL Citrate (PF) (SUBLIMAZE) injection [id number] 02/24/2020 09:20:49 AM EST active As neede d, Starting Thu02/24/20 at 0920, Intra-Procedure [facility] Medication administered onsite normal saline flush 0.9 % injection 3 mL [id number] 02/24/2020 07:00:00 AM EST 3 mL Intravenous active 3 mL , Intravenous, Every 8 hours (scheduled), First dose on Thu02/24/20 at 0700, Pre-op
Rapid push positive pressure flushing shall be performed with a 10 cc normal saline syringe to check the PATENCY of a PIV site prior to any infusion therapy initiation unless resistance is met.
[facility] Medication administered onsite Diphenhydramine Hydrochloride 50 MG Oral Capsule diphenhydrAMINE (BENADRYL) capsule 50 mg diphenhydrAMINE (BENADRYL) capsule 50 mg 02/24/2020 07 :00:00 AM EST 50 mg Oral completed 50 mg, Oral, on call, Thu02/24/20 at 0700, For 1 dose, Pre-op [facility] Medication administered onsite sodium chloride 0.9% (NS) infusion [id number] 02/24/2020 07:00:00 AM EST 100 mL/h Intravenous active at 100 m L/hr, 100 mL/hr, Intravenous, Continuous, Starting Thu02/24/20 at 0700, Pre-op
Start two hours prior to scheduled start time
[facility] Medication administered onsite Aspirin 325 MG Oral Tablet aspirin tablet 325 mg aspirin tab let 325 mg 02/24/2020 07:00:00 AM EST 325 mg Oral completed 325 mg, Oral, Once, Thu02/24/20 at 0700, For 1 dose, Pre-op
Give if scheduled for cardiac or peripheral angioplasty/stent or carotid stenting.Administer AM dose prior to procedure if NOT taken at home.Max of 1 dose per day.
[facility] Medication administered onsite normal saline flush 0.9 % injection 3 mL [id number] 02/24/2020 07:00:00 AM EST 3 mL Intravenous active 3 mL , Intravenous, Every 8 hours (scheduled), First dose on Thu02/24/20 at 0700, Pre-op
Rapid push positive pressure flushing shall be performed with a 10 cc normal saline syringe to check the PATENCY of a PIV site prior to any infusion therapy initiation unless resistance is met.
[facility] Medication administered onsite Sucralfate 1000 MG Oral Tablet sucralfate (CARAFATE) 1 g tablet sucralfate (CARAFATE) 1 g tablet 01/18/2020 12:00:00 AM EST active TAKE ONE TABLET BY MOUTH TWICE A DAY ON AN EMPTY STOMACH [facility] Tamsulosin hydrochloride 0.4 MG Oral Capsule tamsulosi n (FLOMAX) 0.4 MG CAPS tamsulosin (FLOMAX) 0.4 MG CAPS 01/18/2020 12:00:00 AM EST 0.4 mg O ral active Take 0.4 mg by mouth daily [facility] Citalopram 40 MG Oral Tablet CITALOPRAM HYDROBROMIDE 01/18/2020 12:00:00 AM EST tablet 90 TAKE ONE TABLET BY MOUTH EVERY D AY TAKE ONE TABLET BY MOUTH EVERY DAY SOLD: 01/20/2020 [facility] 1 gram 01/18/2020 12:00:00 AM EST tablet 60 TAKE ONE TABLET BY MOUTH TWICE A DAY ON AN EMPTY STOMACH TAKE ONE TABLET BY MOUTH TWICE A DAY ON AN EMPTY STOMACH SOLD: 01/20/2020 [facility] Lisinopril 40 MG Oral Tablet lisinopril (PRINIVIL,ZEST RIL) 40 MG tablet lisinopril (PRINIVIL,ZESTRIL) 40 MG tablet 01/18/2020 12:00:00 AM EST aborted TAKE ONE HALF TABLET BY MOUTH TW ICE A DAY [facility] Citalopram 40 MG Oral Tablet citalopram (CELEXA) 40 MG tablet citalopram (CELEXA) 40 MG tablet 01/18/2020 12:00:00 AM EST 40 mg Oral active Take 40 mg by mouth daily [facility] Chlorthalidone 25 MG Oral Tablet chlorthalidone (HYGRO TEN) 25 MG tablet chlorthalidone (HYGROTEN) 25 MG tablet 01/18/2020 12:00:00 AM EST 2 5 mg Oral aborted Take 25 mg by mouth daily [facility] Sucralfate 1000 MG Oral Tablet [Carafate] Carafate 1 GM Lucia fate 1 GM 01/17/2020 12:00:00 AM EST 1.0 {tablet_on_an_empty_stomach} active Carafate 1 GM eCW1 (Count Includes [facility]) Sucralfate 1000 MG Oral Tablet [Carafate] Carafate 1 GM Lucia fate 1 GM 01/17/2020 12:00:00 AM EST 1.0 {tablet_on_an_empty_stomach} active Carafate 1 GM eCW1 (Count Includes [facility]) Sucralfate 1000 MG Oral Tablet [Carafate] Carafate 1 GM Lucia fate 1 GM 01/17/2020 12:00:00 AM EST 1.0 {tablet_on_an_empty_stomach} active Carafate 1 GM eCW1 (Count Includes [facility]) Sucralfate 1000 MG Oral Tablet [Carafate] Carafate 1 GM Lucia fate 1 GM 01/17/2020 12:00:00 AM EST 1.0 {tablet_on_an_empty_stomach} active Carafate 1 GM eCW1 ([facility] Includes [facility]) Mirtazapine 7.5 MG Oral Tablet Mirtazapine 7.5 MG 01/16/2020 12:00: 00 AM EST 2.0 {tablets_at_bedtime} active Mirtaza pine 7.5 MG eCW1 ([facility]cludes [facility]) 7.5 mg 01/16/2020 12:00:00 AM EST tablet 30 TAKE 2 TABLETS BY MOUTH BEFORE BEDTIME TAKE 2 TABLETS BY MOUTH BEFORE BEDTIME SOLD: 03/22/2020 [facility] 7.5 mg 01/16/2020 12:00:00 AM EST tablet 30 TAKE 2 TABLETS BY MOUTH BEFORE BEDTIME TAKE 2 TABLETS BY MOUTH BEFORE BEDTIME SOLD: 02/17/2020 [facility] Mirtazapine 7.5 MG Oral Tablet Mirtazapine 7.5 MG 01/16/2020 12:00: 00 AM EST 2.0 {tablets_at_bedtime} active Mirtaza pine 7.5 MG eCW1 ([facility] Includes [facility]) Mirtazapine 7.5 MG Oral Tablet Mirtazapine 7.5 MG 01/16/2020 12:00: 00 AM EST 2.0 {tablets_at_bedtime} active Mirtaza pine 7.5 MG eCW1 ([facility] Includes [facility]) Mirtazapine 7.5 MG Oral Tablet Mirtazapine 7.5 MG 01/16/2020 12:00: 00 AM EST 2.0 {tablets_at_bedtime} active Mirtaza pine 7.5 MG eCW1 ([facility] Includes [facility]) Mirtazapine 7.5 MG Oral Tablet mirtazapine (REMERON) 7 .5 MG tablet mirtazapine (REMERON) 7.5 MG tablet 01/16/2020 12:00:00 AM EST active TAKE 2 TABLETS BY MOUTH BEFORE BEDTIME [facility] 7.5 mg 01/16/2020 12:00:00 AM EST tablet 30 TAKE 2 TABLETS BY MOUTH BEFORE BEDTIME TAKE 2 TABLETS BY MOUTH BEFORE BEDTIME SOLD: 01/20/2020 [facility] Tamsulosin hydrochloride 0.4 MG Oral Capsule [Flomax] Flomax 0.4 MG Flomax 0.4 MG 12/09/2019 12:00:00 AM EDT 1.0 {capsule} active Flomax 0.4 MG eCW1 ([facility] Includes [facility]) 0.4 mg 12/09/2019 12:00:00 AM EDT capsule 30 TAKE ONE CAPSULE BY MOUTH EVERY DAY TAKE ONE CAPSULE BY MOUTH EVERY DAY SOLD: 01/20/2020 [facility] Tamsulosin hydrochloride 0.4 MG Oral Capsule [Flomax] Flomax 0.4 MG Flomax 0.4 MG 12/09/2019 12:00:00 AM EDT 1.0 {capsule} active Flomax 0.4 MG eCW1 ([facility] Includes [facility]) Tamsulosin hydrochloride 0.4 MG Oral Capsule [Flomax] Flomax 0.4 MG Flomax 0.4 MG 12/09/2019 12:00:00 AM EDT 1.0 {capsule} active Flomax 0.4 MG eCW1 ([facility] Includes [facility]) Tamsulosin hydrochloride 0.4 MG Oral Capsule [Flomax] Flomax 0.4 MG Flomax 0.4 MG 12/09/2019 12:00:00 AM EDT 1.0 {capsule} active Flomax 0.4 MG eCW1 ([facility] Includes [facility]) Tamsulosin hydrochloride 0.4 MG Oral Capsule [Flomax] Flomax 0.4 MG Flomax 0.4 MG 12/09/2019 12:00:00 AM EDT 1.0 {capsule} active Flomax 0.4 MG eCW1 ([facility] Includes [facility]) Tamsulosin hydrochloride 0.4 MG Oral Capsule [Flomax] Flomax 0.4 MG Flomax 0.4 MG 12/09/2019 12:00:00 AM EDT 1.0 {capsule} active Flomax 0.4 MG eCW1 ([facility] Includes [facility]) 0.4 mg 12/09/2019 12:00:00 AM EDT capsule 30 TAKE ONE CAPSULE BY MOUTH EVERY DAY TAKE ONE CAPSULE BY MOUTH EVERY DAY SOLD: 03/22/2020 [facility] Tamsulosin hydrochloride 0.4 MG Oral Capsule [Flomax] Flomax 0.4 MG Flomax 0.4 MG 12/09/2019 12:00:00 AM EDT 1.0 {capsule} active Flomax 0.4 MG eCW1 ([facility] Includes [facility]) Tamsulosin hydrochloride 0.4 MG Oral Capsule [Flomax] Flomax 0.4 MG Flomax 0.4 MG 12/09/2019 12:00:00 AM EDT 1.0 {capsule} active Flomax 0.4 MG eCW1 ([facility] Includes [facility]) Tamsulosin hydrochloride 0.4 MG Oral Capsule [Flomax] Flomax 0.4 MG Flomax 0.4 MG 12/09/2019 12:00:00 AM EDT 1.0 {capsule} active Flomax 0.4 MG eCW1 ([facility] Includes [facility]) Tamsulosin hydrochloride 0.4 MG Oral Capsule [Flomax] Flomax 0.4 MG Flomax 0.4 MG 12/09/2019 12:00:00 AM EDT 1.0 {capsule} active Flomax 0.4 MG eCW1 ([facility] Includes [facility]) Tamsulosin hydrochloride 0.4 MG Oral Capsule [Flomax] Flomax 0.4 MG Flomax 0.4 MG 12/09/2019 12:00:00 AM EDT 1.0 {capsule} active Flomax 0.4 MG eCW1 (Count Includes [facility]) Nortriptyline 25 MG Oral Capsule nortriptyline (PAMELO R) 25 MG capsule nortriptyline (PAMELOR) 25 MG capsule 12/09/2019 12:00:00 AM EDT active TAKE TWO CAPSULES BY MOUTH EVERY DAY BEFORE BEDTIME [facility] atorvastatin 40 MG Oral Tablet atorvastatin (LIPITOR) 40 MG tablet atorvastatin (LIPITOR) 40 MG tablet 12/09/2019 12:00:00 AM EDT 40 mg Oral aborted Take 40 mg by mouth daily [facility] 0.4 mg 12/09/2019 12:00:00 AM EDT capsule 30 TAKE ONE CAPSULE BY MOUTH EVERY DAY TAKE ONE CAPSULE BY MOUTH EVERY DAY SOLD: 12/12/2019 [facility] Tamsulosin hydrochloride 0.4 MG Oral Capsule [Flomax] Flomax 0.4 MG Flomax 0.4 MG 12/09/2019 12:00:00 AM EDT 1.0 {capsule} active Flomax 0.4 MG eCW1 ([facility] Includes [facility]) Tamsulosin hydrochloride 0.4 MG Oral Capsule [Flomax] Flomax 0.4 MG Flomax 0.4 MG 12/09/2019 12:00:00 AM EDT 1.0 {capsule} active Flomax 0.4 MG eCW1 (Count Includes [facility]) atorvastatin 40 MG Oral Tablet ATORVASTATIN CALCIUM 12/09/2019 1 2:00:00 AM EDT tablet 90 TAKE ONE TABLET BY MOUTH EVERY D AY TAKE ONE TABLET BY MOUTH EVERY DAY SOLD: 12/12/2019 [facility] Tamsulosin hydrochloride 0.4 MG Oral Capsule [Flomax] Flomax 0.4 MG Flomax 0.4 MG 12/09/2019 12:00:00 AM EDT 1.0 {capsule} active Flomax 0.4 MG eCW1 (Count Includes [facility]) Tamsulosin hydrochloride 0.4 MG Oral Capsule [Flomax] Flomax 0.4 MG Flomax 0.4 MG 12/09/2019 12:00:00 AM EDT 1.0 {capsule} active Flomax 0.4 MG eCW1 (Count Includes [facility]) 25 mg 12/09/2019 12:00:00 AM EDT capsule 60 TAKE TWO CAPSULES BY MOUTH EVERY DAY BEFORE BEDTIME TAKE TWO CAPSULES BY MOUTH EVERY DAY BEFORE BEDTIME SO LD: 12/12/2019 [facility] atorvastatin 80 MG Oral Tablet atorvastatin (LIPITOR) 80 MG tablet atorvastatin (LIPITOR) 80 MG tablet 10/18/2019 12:00:00 AM EDT active TAKE ONE TABLET BY MOUTH EVERY DAY [facility] 75 mg 10/15/2019 12:00:00 AM EDT tablet 90 TAKE ONE TABLET BY MOUTH EVERY DAY MAXIMUM DAILY DOSE = 1 TAKE ONE TABLET BY MOUTH EVERY DAY MAXIM UM DAILY DOSE = 1 SOLD: 10/18/2019 [facility] 75 mg 10/15/2019 12:00:00 AM EDT tablet 90 TAKE ONE TABLET BY MOUTH EVERY DAY MAXIMUM DAILY DOSE = 1 TAKE ONE TABLET BY MOUTH EVERY DAY MAXIM UM DAILY DOSE = 1 SOLD: 03/22/2020 [facility] 20 mg 09/02/2019 12:00:00 AM EDT tablet 22 TAKE 3 TABLETS BY MOUTH ONCE A DAY FOR 2 DAYS, THEN 2 TABS. DAILY FOR 7 DAYS, THEN 1 TAB. FOR 2 DAYS TAKE 3 TABLETS BY MOUTH ONCE A DAY FOR 2 DAYS, THEN 2 TABS. DAILY FOR 7 DAYS, THEN 1 TAB. FOR 2 DAYS SOLD: 09/03/2019 [facility] pantoprazole 40 MG Delayed Release Oral Tablet PANTOPRAZOLE SODIUM 08/08/2019 12:00:00 AM EDT tablet,delayed release (DR/EC) 180 T REBECCA ONE TABLET BY MOUTH TWICE A DAY TAKE ONE TABLET BY MOUTH TWICE A DAY SOLD: 08/10/2019 [facility] 10 mg 08/08/2019 12:00:00 AM EDT tablet 90 TAKE ONE TABLET BY MOUTH THREE TIMES A DAY WITH FOOD OR MILK TAKE ONE TABLET BY MOUTH THREE TIMES A D AY WITH FOOD OR MILK SOLD: 08/10/2019 [facility] 40 mg 08/08/2019 12:00:00 AM EDT tablet 90 TAKE ONE TABLET BY MOUTH EVERY DAY TAKE ONE TABLET BY MOUTH EVERY DAY SOLD: 08/10/2019 [facility] 25 mg 04/13/2019 12:00:00 AM EST tablet 30 TAKE ONE TABLET BY MOUTH EVERY DAY TAKE ONE TABLET BY MOUTH EVERY DAY SOLD: 12/12/2019 [facility] 40 mg 04/13/2019 12:00:00 AM EST tablet 30 TAKE ONE-HALF TABLET BY MOUTH TWICE A DAY TAKE ONE-HALF TABLET BY MOUTH TWICE A DAY SOLD: 08/10/2019 [facility] 5 mg 04/13/2019 12:00:00 AM EST tablet 30 TAKE ONE TABLET BY MOUTH EVERY DAY TAKE ONE TABLET BY MOUTH EVERY DAY SOLD: 04/15/2019 [facility] 40 mg 04/13/2019 12:00:00 AM EST tablet 30 TAKE ONE-HALF TABLET BY MOUTH TWICE A DAY TAKE ONE-HALF TABLET BY MOUTH TWICE A DAY SOLD: 12/12/2019 [facility] 40 mg 04/13/2019 12:00:00 AM EST tablet 30 TAKE ONE-HALF TABLET BY MOUTH TWICE A DAY TAKE ONE-HALF TABLET BY MOUTH TWICE A DAY SOLD: 01/20/2020 [facility] 40 mg 04/13/2019 12:00:00 AM EST tablet 30 TAKE ONE-HALF TABLET BY MOUTH TWICE A DAY TAKE ONE-HALF TABLET BY MOUTH TWICE A DAY SOLD: 04/15/2019 [facility] 40 mg 04/13/2019 12:00:00 AM EST tablet 15 TAKE ONE-HALF TABLET BY MOUTH ONCE A DAY TAKE ONE-HALF TABLET BY MOUTH ONCE A DAY SOLD: 06/28/2019 [facility] 25 mg 04/13/2019 12:00:00 AM EST tablet 30 TAKE ONE TABLET BY MOUTH EVERY DAY TAKE ONE TABLET BY MOUTH EVERY DAY SOLD: 10/18/2019 [facility] 25 mg 04/13/2019 12:00:00 AM EST tablet 30 TAKE ONE TABLET BY MOUTH EVERY DAY TAKE ONE TABLET BY MOUTH EVERY DAY SOLD: 08/10/2019 [facility] 25 mg 04/13/2019 12:00:00 AM EST tablet 30 TAKE ONE TABLET BY MOUTH EVERY DAY TAKE ONE TABLET BY MOUTH EVERY DAY SOLD: 01/20/2020 [facility] 40 mg 04/13/2019 12:00:00 AM EST tablet 30 TAKE ONE-HALF TABLET BY MOUTH TWICE A DAY TAKE ONE-HALF TABLET BY MOUTH TWICE A DAY SOLD: 10/18/2019 [facility] 40 mg 04/13/2019 12:00:00 AM EST tablet 30 TAKE ONE-HALF TABLET BY MOUTH TWICE A DAY TAKE ONE-HALF TABLET BY MOUTH TWICE A DAY SOLD: 06/28/2019 [facility] 25 mg 04/13/2019 12:00:00 AM EST tablet 30 TAKE ONE TABLET BY MOUTH EVERY DAY TAKE ONE TABLET BY MOUTH EVERY DAY SOLD: 06/28/2019 [facility] 40 mg 04/13/2019 12:00:00 AM EST tablet 15 TAKE ONE-HALF TABLET BY MOUTH ONCE A DAY TAKE ONE-HALF TABLET BY MOUTH ONCE A DAY SOLD: 04/15/2019 [facility] 25 mg 04/13/2019 12:00:00 AM EST tablet 30 TAKE ONE TABLET BY MOUTH EVERY DAY TAKE ONE TABLET BY MOUTH EVERY DAY SOLD: 04/15/2019 [facility] 75 mg 11/22/2018 12:00:00 AM EDT tablet 90 TAKE ONE TABLET BY MOUTH EVERY DAY TAKE ONE TABLET BY MOUTH EVERY DAY SOLD: 04/15/2019 [facility] 80 mg 10/06/2018 12:00:00 AM EDT tablet 30 TAKE ONE TABLET BY MOUTH EVERY DAY TAKE ONE TABLET BY MOUTH EVERY DAY SOLD: 02/10/2019 [facility] 80 mg 10/06/2018 12:00:00 AM EDT tablet 30 TAKE ONE TABLET BY MOUTH EVERY DAY TAKE ONE TABLET BY MOUTH EVERY DAY SOLD: 06/28/2019 [facility] 80 mg 10/06/2018 12:00:00 AM EDT tablet 30 TAKE ONE TABLET BY MOUTH EVERY DAY TAKE ONE TABLET BY MOUTH EVERY DAY SOLD: 04/15/2019 [facility] atorvastatin 80 MG Oral Tablet ATORVASTATIN CALCIUM 10/06/2018 1 2:00:00 AM EDT tablet 30 TAKE ONE TABLET BY MOUTH EVERY D AY TAKE ONE TABLET BY MOUTH EVERY DAY SOLD: 08/10/2019 [facility] VITAMIN B COMPLEX 04/26/2018 12:00:00 AM EDT capsule 90 TAKE ONE CAPSULE BY MOUTH EVERY DAY TAKE ONE CAPSULE BY MOUTH EVERY DAY SOLD: 08/10/2019 [facility] 25 mg 03/16/2018 12:00:00 AM EST tablet 30 TAKE ONE TABLET BY MOUTH EVERY DAY TAKE ONE TABLET BY MOUTH EVERY DAY SOLD: 02/10/2019 [facility] Multiple Vitamin tablet [id number] 02/04/2018 12:00:00 AM EST aborted MULTIPLE VITAMIN TABS [facility] Acetaminophen 325 MG / Hydrocodone Ronnie trate 10 MG Oral Tablet HYDROcodone- acetaminophen (NORCO) 10-325 MG per tablet HYDROcodone-acetaminophen (NORCO) 10- 325 MG per tablet 01/30/2015 12:00:00 AM EST aborted NORCO 10-325 MG TABS [facility] Insurance Providers Payer name Policy type / Coverage type Policy ID Covered libertarian ID Covered libertarian's relationship to mello Policy Mello Plan Information MEDICARE BLUE PPO [id number] SP [id number] [employer] MEDICARE [id number] Kristine [id number] INSURANCE COVID-19 COVID Kristine C OVID [employer] MEDICARE Medicare [id number] [employer] B [id number] S VYM [id number] MEDICARE BLUE PPO [id number] SP [id number] MEDICARE [id number] SP [id number] MEDICARE [id number] SP [id number] [place] PPO [id number] [id number] [facility] [id number] SP [id number] [facility] [id number] S [id number] [facility] [id number] SP [id number] JOSE MANUEL MEDICARE [id number] SP [id number] [facility] O [id number] S [id number] [facility] [id number] SP [id number] ANSI-Medicaid [id number] ANSI-Medicaid [id number] ANSI-Medicaid [id number] ANSI-Medicaid [id number] ANSI-Medicaid [id number] ANSI-Medicaid [id number] [facility] [id number] SP [id number] [facility] I [id number] Self [id number] [facility] COMMUNTY PLAN [id number] ANSI-Medicaid [id number] ANSI-Medicaid [id number] ANSI-Medicaid [id number] ANSI-Medicaid [id number] ANSI-Medicaid [id number] ANSI-Medicaid [id number] ANSI-Medicaid [id number] ANSI-Medicaid [id number] ANSI-Medicaid [id number] ANSI-Medicaid [id number] ANSI-Medicaid [id number] ANSI-Medicaid [id number] [facility] [id number] Self [id number] [facility] Health Maintenance Organization (O) [id number] Self [id number] ANSI-Medicaid [id number] ANSI-Medicaid [id number] ANSI-Medicaid [id number] ANSI-Medicaid [id number] ANSI-Medicaid [id number] ANSI-Medicaid [id number] ANSI-Medicaid [id number] ANSI-Medicaid [id number] ANSI-Medicaid [id number] ANSI-Medicaid [id number] ANSI-Medicaid [id number] ANSI-Medicaid [id number] ANSI-Medicaid [id number] ANSI-Medicaid [id number] ANSI-Medicaid [id number] ANSI-Medicaid [id number] ANSI-Medicaid [id number] ANSI-Medicaid [id number] ANSI-Medicaid [id number] ANSI-Medicaid [id number] ANSI-Medicaid [id number] ANSI-Medicaid [id number] ANSI-Medicaid [id number] ANSI-Medicaid [id number] [facility] [id number] ANSI-Medicaid [id number] ANSI-Medicaid [id number] ANSI-Medicaid [id number] ANSI-Medicaid [id number] ANSI-Medicaid [id number] ANSI-Medicaid [id number] ANSI-Medicaid [id number] ANSI-Medicaid [id number] ANSI-Medicaid [id number] ANSI-Medicaid [id number] ANSI-Medicaid [id number] ANSI-Medicaid [id number] [place] [id number] SP [id number] MEDICAID [id number] [employer] MCDHMO [id number] SP [id number] MEDICAID [id number] SP [id number] MEDICAID M [id number] MEDICAID [id number] SP [id number] [facility] Health Maintenance Organization (HMO) [id number] Self [id number] MEDICAID M [id number] S [id number] UNHC COMMUNITY PLAN MCDHMO UNAVAILABLE SP UNAVAILABLE [place] [id number] SP [id number] [place] Care [facility] On Call [id number] Self [id number] [place] UNAVAILABLE SP U NAVAILABLE JOSE MANUEL [id number] SP [id number] JOSE MANUEL [id number] SP [id number] Jose Manuel Care [facility] [employer] [id number] Self [id number] [place] Manuel Care [facility] [employer] [id number] Self [id number] JOSE [place] CARE [place] O [id number] S [id number] UNHC COMMUNITY PLAN MCDHMO [id number] SP [id number] MEDICAID M [id number] S [id number] [employer] [facility] Health Maintenance Organization (HMO) Self [facility] I [id number] Self [id number] OTHER 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 O [id number] S [id number] MEDICAID M [id number] Self [id number] SELF PAY UNAVAILABLE SP UNAVAILA BLE TRAVELERS W/C [id number] SP [id number] TRAVELERS W/C [id number] SP [id number] Problems, Conditions, and Diagnoses Code Display Name Description Problem Type Effective Dates Data Source(s) I35.1 Nonrheumatic aortic valve insufficiency Nonrheumatic aortic valve insufficiency [id number] 02/28/2020 12:00:00 AM [facility] I35.0 Aortic valve stenosis Aortic valve stenosis [id number] 02/17/2020 12:00:00 AM [facility] K64.4 [id number] External hemorrhoids Problem 01/16/2020 12:0 0:00 AM EST [facility] ([facility]) N40.1 [id number] Benign prostatic hyp erplasia with lower urinary tract symptoms Problem 12/09/2019 12:00:00 AM EDT [facility] ([facility]) E66.09 [id number] Other obesity due to excess calories Prob jessa 07/21/2019 12:00:00 AM EDT [facility] ([facility]) Z68.30 [id number] Body mass index (BMI) 30.0-30.9, adult Pr oblem 07/21/2019 12:00:00 AM EDT [facility] ([facility] Includes [facility]) Z13.220 [id number] Lipid screening Problem 07/21/2019 12:00:00 AM EDT [facility] ([facility] Includes [facility]) I10 Essential hypertension Essential hypertension [id number] 03/29/2019 12:00:00 AM [facility] I35.1 Nonrheumatic aortic (valve) insufficienc y Nonrheumatic aortic (valve) insufficienc Diagnosis 04/04/2020 03:52:47 PM [facility] U07.1 COVID-19 COVID-19 Diagnosis 04/02/2020 09:34:30 AM [facility] E78.5 Hyperlipidemia, unspecified Hyperlipidemia, unspecifie d Diagnosis 03/15/2020 09:31:23 AM EST [facility] I35.0 Nonrheumatic aortic (valve) stenosis Nonrheumati c aortic (valve) stenosis Diagnosis 03/15/2020 09:31:23 AM EST [facility] I73.9 Peripheral vascular disease, unspecified Peripheral vascular disease, unspecified Diagnosis 03/15/2020 09:31:23 AM EST [facility] I10 Essential (primary) hypertension Essential (primary) h ypertension Diagnosis 03/15/2020 09:31:23 AM EST [facility] F17.210 Nicotine dependence, cigarettes, uncompl icated Nicotine dependence, cigarettes, uncompl Diagnosis 03/15/2020 09:31:23 AM EST [facility] Surgeries/Procedures Procedure Description Date Indications Data Source(s) ECG ROUTINE ECG W/LEAST 12 LDS W/I&R POCT AMB EKG Routine 03/15/2020 11:12 AM EST Aortic valve stenosis, etiology of cardiac valve disease unspecified 03/15/2020 04:12:00 PM EST Aortic valve stenosis, etiology of cardi ac valve disease unspecified [facility] Aortic valve stenosis, etiology of cardi ac valve disease unspecified RADEX SPINE ENTIRE SURVEY STD ANTEROPOST&LAT CARDIAC CATHETERIZ ATION Routine 02/24/2020 9:53 AM EST Aortic valve stenosis, etiology of cardiac valve disease unspecified Peripheral vascular disease Hyperlipidemia, unspecified hyperlipidemia type Essential hypertension Cigarette smoker 02/24/2020 02:53:34 PM EST Cigarette smo kerEssential hypertensionHyperlipidemia, unspecified hyperlipidemia typePeripheral vascular diseaseAortic valve stenosis, etiology of cardiac valve disease unspecified [facility] Cigarette smoker Essential hypertension Hyperlipidemia, unspecified hyperlipidem ia type Peripheral vascular disease Aortic valve stenosis, etiology of cardi ac valve disease unspecified ECG ROUTINE ECG W/LEAST 12 LDS TRCG ONLY W/O I&R ECG 12-LEAD Routine 02/24/2020 6:33 AM EST 02/24/2020 11:33:08 AM EST [facility] BLOOD COUNT COMPLETE AUTOMATED CBC STAT 02/24/2020 6:31 A M EST 02/24/2020 11:31:00 AM EST [facility] BASIC METABOLIC PANEL CALCIUM TOTAL BASIC METABOLIC PANEL STAT 02/24/2020 6:31 AM EST 02/24/2020 11:31:00 AM EST [facility] ECG ROUTINE ECG W/LEAST 12 LDS W/I&R POCT AMB EKG Routine 02/09/2020 2:34 PM EST Aortic valve stenosis, etiology of cardiac valve disease unspecified 02/09/2020 07:34:00 PM EST Aortic valve stenosis, etiology of cardi ac valve disease unspecified [facility] Aortic valve stenosis, etiology of cardi ac valve disease unspecified Arterial Infusion Thrombolysis Other Than Carotid 05/02/2019 12:00:00 AM EDT [facility] ([facility], ) REVSC OPN/PRQ FEM/POP W/STNT/ANGIOP SM VSL 05/02/2019 12:00:00 AM EDT [facility] ([facility], ) REVSC OPN/PRQ TIB/DANNI W/ANGIOPLASTY UNI 05/02/2019 12 :00:00 AM EDT [facility] ([facility], ) Angiography Extremity Unilateral 05/02/2019 12:00:00 A M EDT [facility] ([facility], ) Moderate Sedation Services; Same Phys Intl 15 Mins; PT >= 5 Years 05/02/2019 12:00:00 AM EDT [facility] ([facility], ) Office Visit, Est Pt., Level 3 PC 04/07/2019 12:00:00 AM EST eCW1 ([facility]) Office Visit, Est Pt., Level 2 FC 04/07/2019 12:00:00 AM EST eCW1 ([facility]) Results ID Date Data Source [id number] 04/02/2020 01:01:10 PM EST [facility] Name Value Range Interpretation Code Description Data Debbie rce(s) Supporting Document(s) POC SOURCE [facility] PUNCTURE SITE [facility] O2 THERAPY [facility] PAUL TEST [facility] POC PH 7.46 pH (7.35-7.45) H [facility] POC PCO2 35.4 MMHG (32.0-48.0) [facility] POC PO2 81 MMHG (83-108) L [facility] POC SAT O2 97 % (95-99) [facility] POC BASE EXCESS 2 MMOL/L (0-3) [facility] POC HCO3 25.3 MMOL/L (21.0-29.0) [facility] POC TOTAL CO2 26 MMOL/L (23.0-32.0) [facility] PERFORMED BY [facility] CLINICAL STAFF ID Date Data Source [id number] 04/02/2020 11:55:00 AM EST [employer] [facility] CHEST ROUTINE PA and LATCLINICAL HISTORY: Pretesting. Replacement aortic valve. Nonrheumatic aortic valve insufficiency. Shortness of breath.COMPARISON: None available.TECHNIQUE: Two views of the chest are provided.FINDINGS: There is mild hyperinflation. The diaphragms are sharply defined. There is no pleural effusion or pneumothorax. I suspect there is some scarring in the left upper lung. There is no well- defined lung consolidation or nodule. There is no pneumothorax, pleural effusion or free air beneath the diaphragms. Spurring is seen in the spine. Postoperative changes seen lower cervical spine.IMPRESSION: Mild hyperinflation. This suggests obstructive lung disease. Increased markings on the left most likely related to scarring. Further management should be determined clinically.Dictated by: DANE DAS M.D. on 1 Transcribed by: teodora on 04/02/2020 03:21 PMCDS G code: ,CDS Modifier: ,cc: Name Value Range Interpretation Code Description Data Debbie rce(s) Supporting Document(s) ID Date Data Source [id number] 04/02/2020 11:44:00 AM EST [employer] [facility]: ULTR ASOUND CAROTID DUPLEXCLINICAL HISTORY: Pretesting. Replacement aortic valve. Nonrheumatic aortic valve insufficiency. Shortness of breath.COMPARISON: None available.FINDINGS: RIGHT:CCA PS: 97 cm/secICA PS: 142 cm/secICA ED: 47 cm/secECA PS: 120 cm/secVertebral: 35 cm/sec, antegradeRatio: ICA/CCA: 1.5ICA Stenosis: Less than 50%Comments: Plaque identified in the common carotid bulb, proximal internal and external carotid arteries as well as the distal right external carotid artery. There is a high bifurcation of the right common carotid artery.LEFT:CCA PS: 122 cm/secICA PS: 124 cm/secICA ED: 44 cm/secECA PS: 100 cm/secVertebral: 56 cm/sec, antegradeRatio: ICA/CCA: 1.0ICA Stenosis: Less than 50%Comments: Mild to moderate plaque identified in the mid left common carotid artery and in the left common carotid bulb extending into the proximal left internal carotid artery. There is a high bifurcation of the left common carotid artery.IMPRESSIO N: 50 to 69% stenosis within the right internal carotid artery related to soft plaque.Less than 50% stenosis within the proximal left internal carotid artery.High bifurcations of both common carotid arteries.Carotid stenosis measurements were performed using the NASCET method.Dictated by: DANE DAS M.D. on 04/02/2020lectronically Signed by: DANE DAS M.D. on 04/02/2020 01:39 PMTranscribed by: teodora on 04/02/2020 01:39 PMCDS G code: ,CDS Modifier: ,cc: Name Value Range Interpretation Code Description Data Debbie rce(s) Supporting Document(s) ID Date Data Source [id number] 04/02/2020 11:35:15 AM EST [facility] Name Value Range Interpretation Code Description Data Debbie rce(s) Supporting Document(s) EKG [facility] WCHHIu9cGjEMOuZyt2KlQhClWVWrBG3yimm7D4C0cUEmO1QrwPEma9nxS3QdK8EoJJYjOIMCPF3IcQVf jb2 [file] iQ5L+qhieM0G+kohvY6X+opmaC0V+oiiaA3J+cxqqv9F+jczvw8H+zunep5N+elohC0U+bidzC6F+vgw iU5M+xumaT5Bjh/zA3NCO1tYcDfnBwyOhNpwgqxAdK kffybRoUkfjybRpUkfnybRqUkfrybRrUkfvybRsUn9+0VEPT++TjPtmf5kHnJ0ft1+BbOQif2wJsDNkh 4+QcRGmt7bPcEnyr6+PdGwkp6dWkNuae5+EhTzek9tJrR1vi3+SbDSwd2xR6AUqe1+D1PQsm5sQ3Brsd 5+Y1Zxgr6kS0Vawt2+W9Apbv9qR0T8to9+D8JTmV6x UKILlD4+KDOCnJ8cEUPmtG4+VKXzyN3uKVSfoD6+LVFcwY7zYHI3uX0+UKY/lD/+UKY/lD/+UKY/lD/+ UKY/lD/+UKY/lD/+UKY/lD/+UKY/lD/+UKY/lD/+UKY/lD/+UKY/lD/+UKY/lD/+UKY/lD/+UKY/lD/+ UKY/lD/+UKY/lD/+UKY/lL/aO0DG0bwOX8Bi/t0aTV ik+egZlmm+0pPhxrj8XjXKfe6zGACv5fygR8IqIc3Roh+UP/5Qpj+UP/5Qpj+UP/5Qpj+UP/5Qpj+UP/ 5Qpj+UP/5Qpj+UP/5Qpj+UP/5Qpj+UP/5Qpj+UP/5Qpj+UP/5Qpj+UP/5Qpj+UP/5Qpj+UP/5Qpj+UP/ 5Qpj+UP/5Qpj+UP/5Qpj+UP/5Qpj+UP/5Qpj+UP/5Q pj+UP/5Qpj+UP/5Qpj+UP/5Qpj+UP/5Qpj+UP/5Qpj+UP/5Qpj+UP/5Qpj+UP/5Qpj+UP/5Qpj+UP/5Q pj+UP/5Qpj+UP/5Qpj+UP/5Qpj+UP/5Q/UXDl/KT14PUM5QBLf9iDHufbY0i1B7YuQT5cnNK8SCAL7PU Lv87JmV+dsdo8zAdI2W+zgiY8aGgU8K+lstY1eCuY6 E+eloL0gVpM9Q+mjmX9fSvP4E+lidK1iWzH1F+kxyO0zKzW1D+qeoR6tOtM0K+jteG4jVaP4C+lfo06t OoT6M+wmj28kPbH0T+bop75sBoK8J+DUR87jKuR4E+qtc46kCeS4k+bta95bNyX7d+eqe49mGcI6t+nf p31rFmV2s+bluU0xCmk0Z+g/uC2qVol8W+g/oM6jOo z6A+g/yM0xPbb8I+g/rE9gCyt6H+k/sY8aEjs6V+k/pV4oZqs8E+k/dZ8mEvs8K+k/te4gZoy9T+i/os 0xBac9H+i/rw6zLrt2O+i/pv6sWvw7K+i/pczciuoh3hOTaeGb6TYavObdDvpaXtiZFaCUtXF+sT5tYn AR1UvD4oGQ6+Cu7Y4CoYzvU3A9F/ULWUFu9K1PeJnv T0S0G/3BhN3jR2B8N1iC4T8W8MySSH9PYDuVVL5PAJyKWI7JHPbKTT6YXIrLVR5SINgBOX1YHJvMTW0U RCbQuH8TpGsSvR7EqJdVnV0WcCsPqY9FmFhIaG0WtHjIvK7QiMqW9O8Q1QqS0M1D4VgW2I3E6PpNPI2P BRoKYP7QENiOVU9WUMfDYF1GBJbBRC0YJGbTVX8PJY lZMF6TQIvFoX7TlGjArU8DyTbBwQ4MiWsXzX7CiNjBcT2DoRaLgD25uoavO5CKmlgr/i8Nwj8dbqO/N1 E4qaMzLPMM7XhGeHebStrqGmxJayqSrwjTLyBrprfYolbRgAEBzG96QEO8A1XFMMEA6T4XYBW3N89aIH A0+N+NTAUyM+HuMWpM9VTEZrKnqKdR3by4P/vfywm5 9PPz/i0LqpALMRb8GEL/nYSKKRpI+VJJpJ+dhHhmWeq3ZwikhuF4bI5yn8gvwONuvRwIKkDdCYIpI+Instant Print Operator [file] JYQ0UeOXYZCQpivonIrjn3B63pnNLETKHy8ZPZIE7j LxtykdJatV2i3cq6B1ZOMXxAvXVGbWHMObubnbR+4OwHzq/R2RO9/VDm0KeRjgkWuBDMposdpawEeRto Zhpt4i3I7PQfJ2kGrLwChetOzYtpXgBS3JCoszVCT+wyxjcwqjk7Lq7t3lUCR4nsQCAVUUfMtheldVB2 UTTs5UmB2aqSgob+egiAhza51hwEpKGzJRz3EyFoVD axZMo+9EkjgxVOWIG6KRheWrd2U2qcdVvnNLFIrsWcD62iAVEmKUTeRDImR92rcsDdIV4fdHXKcnxvSH LtiKmMW7qU+uc7vOVLHr7rEnYrFBSLWjFLcxYW02Jti8j5dIk9eEgLagUTVdiXFPTIUyr6PbO3KxzecK cOYw3HitIUeYHwTWh8Y4acuggmsGMHgi2YDCYR8GWT qfLsN9BaTO4yw9QhewT62arLf8iWo2oD4cDNQYY+eB3FdQ4QAXkLyQZ0kAG9cdpIOFS+38B6h9s0k2YU FckYSTJAPkKou4hlOuDuNSxutsflm+YKtVr1RCgvbT0tldxJvB87hxC36kOREddHwLKTnf5vinZqZZwM LxuVOMPkFJQQwBOPKNIdSPSmtguBC1cn8AGnPbwcRT Gfic4gEPqOAoLEBIA1gMcEJP/9X//X//yLfZYIo/2f/+ff//F/t//z3//8v//+1/8oL/oy2JUg5P07E+ Xl/sPh/PJTli+okEoNqYqcXuvEcv8ogHYfJgjXuNYli89a0YF6Qkc1vCU0jM0GgWJdQx+9A5rWsomzNa 3/MÓNICA/7Di4Uo90efOA4U6cQ/yVGAZs55H06pN+Ul/tv 5Etjj23U/Bsho2w/dbs9QUo+qcS/36OcI+M6lxWW0sFYvmfcTdTvl5bwQTLZH8CIlze2kvc4eLPogs2i 0qa9dpvG4pt87iPyLU166nx6t/696wzbTC7j4KsPTX4uq0EnkBbgU2R5od3PKbx8So+qn5/e+3ufqMOf 2vsb+bKi6cu1bkVOov9vpr/3udEK//7GlXTu/8N/german [file] DyOcm1HYvaRPtdEPYWKb== ID Date Data Source [id number] 04/02/2020 11:28:30 AM EST [facility] NT INFORMATIONPatient MRN Name Date of Age Gend*PT [id number] Hiral Shi 1960 60 years M OPPT Location Admission Date/Time Visit ID Attending Provider --- --- --- Oneil Genao MD([id number]) EPI ID CSN Admitting Provider [id number] ---HISTORY PHYSICALName: Hiral Shi : 1960 Sex: male Care Provider: Sonal Arredondoending Physician: Dr. GenaoInformant: The patient who is reliable.Chief Complaint: "I will have heart surgery".HISTORY OF PRESENT ILLNESS: 60 years old male with a history of GERD,HTN, HLD, spinal stenosis, PAD on Plavix, diverticulitis, depression, OA, RA,restless leg syndrome and a known aortic valve insufficiency who has beencomplaining of dizziness, occasional nonradiating left sided exertional chestpain that alleviates after 10-20 minutes of rest and 2 syncopal episodes inNov2019. Denies palpitations, peripheral edema, orthopnea, PND ortachycardia. After syncopal episodes patient was seen and evaluated by his PCP.Subsequently he was referred to french folder Dr. Villaseñor. On 02/13/2020 heunderwent TTE which revealed Normal LV size with mild LVH and hyperdynamic LV systolic function, estimated LVEF 70%. Grade 1 diastolic dysfunction. Poorlyvisualized aortic valve that appears heavily sclerotic with severe aorticstenosis (mean gradient 47 mmHg, calculated CAROLA 1.0 cm , dimensionless index0.24) and mild insufficiency. On 02/24/2020 catheterization was performed. Thecatheterization concluded Severe aortic stenosis with a mean gradient of 45 andan estimated area of 0.9. Borderline high pulmonary artery pressure. Borderlinesingle-vessel coronary artery disease. With the above findings he was referredto Dr. Genao for surgical evaluation. The patient met with Dr. Genao, options werediscussed and they have elected to under go REPLACEMENT, AORTIC VALVE, MINIMALLYINVASIVE, RIGHT THORACOTOMY APPROACH, USING HEARTPORT TECHNIQUE with YOLA on04/06/2020.PAST MEDICAL HISTORY:Past Medical History:Diagnosis Date Abnormal carotid ultrasound 01/26/2020 Bilateral less then 50% stenosis Aortic stenosis Carotid Ultrasound 04/2018 bilateral less then 50% stenosis Coronary artery disease mild f/u by Dr. Villaseñor CTA abdomen and LE 01/19/2015 50-70% L iliac stenosis, 80-85% R iliac stenosis, occlusion of R poplitealartery Depression Diverticulitis Echocardiogram 12/06/2014 LV EF 55-60%, mild to moderate (CAROLA 1.3cm2, mean gradient 23mmHg) - [facility] Echocardiogram 01/08/2016 Normal LV size with mild LVH and overall preserved LV systolic function.Grade 1 diastolic dysfunction. 1-2+ AI, 1-2+ (mean gradient 25 mmHg).Aortic root normal size. No significant mitral and tricuspid valve disease.Normal central venous pressure. Unable to estimate pulmonary artery pressure Echocardiogram 04/2018 Moderate LVH, LV EF 65%. Grade I diastolic dysfunction. Moderately severe (mean gradient 43mmHg, CAROLA 1.3cm2). Normal CVP. Unable to determine pulmonaryartery pressure. GERD (gastroesophageal reflux disease) Hiatal hernia Hyperlipidemia Hypertension Low back pain Nonrheumatic aortic (valve) insufficiency Osteoarthritis PAD (peripheral artery disease) Rheumatoid arthritis RLS (restless legs syndrome) Spinal stenosis Stress Test 07/2012 8 METs, LV EF 60-65%, no ischemia, mild LVH, mild aortic stenosisPAST SURGICAL HISTORY:Past Surgical History:Procedure Laterality Date ANGIOPLASTY / STENTING FEMORAL Right APPENDECTOMY CARDIAC CATHETERIZATION N/A 02/24/2020 Procedure: Right heart cath; Surgeon: Marla Marino MD; Laterality: N/A;Pt needs labs drawn on admit CARDIAC CATHETERIZATION N/A 02/24/2020 Procedure: Left heart cath; Surgeon: Marla Marino MD; Laterality: N/A; CARDIAC CATHETERIZATION N/A 02/24/2020 Procedure: Coronary angiography; Surgeon: Marla Marino MD; Laterality:N/A; CARDIAC CATHETERIZATION N/A 02/24/2020 Procedure: Left ventriculography; Surgeon: Marla Marino MD; Laterality:N/A; CERVICAL FUSION 2003 COLONOSCOPY FEMORAL ARTERY - POPLITEAL ARTERY BYPASS GRAFT Right 2015 HYDROCELE EXCISION / REPAIR 2010 LUMBAR FUSION 2018 SPINAL CORD STIMULATOR IMPLANT 2018 TONSILLECTOMYALLERGIES: No Known Drug AllergiesMEDICATIONS:Prior to Admission medicationsMedication Sig Start Date End Date Taking? Authorizing Provideraspirin EC 81 MG EC tablet Take 81 mg by mouth daily Historical Provider, Austentorvastatin (LIPITOR) 80 MG tablet TAKE ONE TABLET BY MOUTH EVERY DAYPatient taking differently: Take 40 mg by mouth daily 10/18/19 Meri Mccormack, FNPbaclofen (LIORESAL) 10 MG tablet Take 10 mg by mouth 3 (three) times a day asneeded Historical Provider, Navihlorthalidone (HYGROTEN) 25 MG tablet Take 1 tablet (25 mg total) by mouthdaily 02/26/20 Marla White-Mabel, MDcitalopram (CELEXA) 40 MG tablet Take 40 mg by mouth daily 01/18/20 HistoricalProvider, MDclopidogrel (PLAVIX) 75 MG tablet Take 75 mg by mouth daily 01/30/15Historical Provider, THEODORAiclofenac Sodium 1 % CREA Apply 1 application topically every 6 (six) hours asneeded Historical Provider, lisinopril (PRINIVIL,ZESTRIL) 40 MG tablet Take 0.5 tablets (20 mg total) bymouth daily 02/26/20 Marla Marino, MDmirtazapine (REMERON) 7.5 MG tablet Take 15 mg by mouth nightly as bekqvc06/7/20 Historical Provider, nortriptyline (PAMELOR) 25 MG capsule Take 50 mg by mouth nightly as tquygl12/30/20 Historical Provider, MDpantoprazole (PROTONIX) 40 MG tablet Take 40 mg by mouth 2 (two) times a day02/04/18 Historical Provider, MDsucralfate (CARAFATE) 1 g tablet Take 1 g by mouth 2 (two) times a day 01/18/20Historical Provider, tamsulosin (FLOMAX) 0.4 MG CAPS Take 0.4 mg by mouth daily 01/18/20 HistoricalProvider, Lidocaine HCl 4 % CREA LIDOCAINE HCL 4 % CREA 02/04/18 04/02/20 HistoricalProvider, MDSocial HistoryTobacco Use Smoking status: Former Smoker Packs/day: 1.00 Years: 35.00 Pack years: 35.00 Types: Cigarettes Last attempt to quit: 07/2019 Years since quittin.7 Smokeless tobacco: Never UsedSubstance Use Topics Alcohol use: Yes Frequency: 4 or more times a week Drinks per session: 3 or 4 Binge frequency: Less than monthly Comment: 2-3/daily Drug use: Yes Frequency: 7.0 times per week Types: Marijuana Comment: last used on 03/30/20Family HistoryProblem Relation Age of Onset COPD Mother Coronary artery disease Father Malig Hyperthermia Neg HxREVIEW OF SYSTEMS:Constitution: Weight stable. Denies fever or chills. Caffeine intake: 2cups/day. He has fatigue.HEENT: Uses reading glasses. Denies any blurred vision, double vision,dizziness, tinnitus, dysphagia or headaches.Respiratory: Denies any shortness of breath at rest, he is getting DIAZ withminimal exertion. Denies cough, yellow sputum production or wheezing.Cardiovascular: Reports exertional left sided nonradiating chest pain thatalleviates with 10 to 20 minutes of rest. Denies chest pressure or tightness.Denies any paroxysmal nocturnal dyspnea or orthopnea.Muscle/Skeletal System: Denies any muscle ache, joint ache or weakness.Neurologic: Denies any numbness, tingling, tremors or syncope.GI: Denies any nausea, vomiting, diarrhea, constipation or melena.: Denies any dysuria, hematuria or nocturia .Endocrine: Denies polyuria, polydipsia or polyphagia. Denies any heat or coldintolerance or night sweats.Hematology: Denies any bleeding or bruising tendencies.DNR Status: Full Code per the patient.HCP: Yes per patient.PHYSICAL EXAM:General: He is a 60 years old, pleasant white male, in no acute distress at timeof examination. Vitals on arrival to the office are BP 128/58 (BP Location:Right upper arm, Patient Position: Sitting) | Pulse 80 | Ht 1.778 m (5' 10")| Wt 98.7 kg (217 lb 11.2 oz) | SpO2 96% | BMI 31.24 kg/m Body mass index is31.24 kg/m ..Skin is pink warm and dry.HEENT: He is normocephalic, atraumatic. [place] conjunctivae. Anicteric sclerae.Pupils are equal, round, reactive to light and accommodation. Extraocularmovements are intact. Ears: Without drainage or lesion. Mouth: He has upper andlower dentures. He has a grade 4 airway. Neck is supple midline withoutcervical adenopathy. There is no tonsillo pharyngeal congestion. Mucousmembranes are moist. There are no oral lesions. No jugular distention. Nocarotid bruit.CHEST/BREAST: A/P less than transverse. Breast exam declined.LUNGS: Decreased all over lung [place]. No wheezes, rhonchi or crackles.HEART: Rate rhythm regular. 4/6 murmur, best heard at R and L SB 2nd ICS.ABDOMEN: Bowel sounds positive times four. Soft, non tender. No reboundtenderness. No hepatosplenomegaly. Negative CVAT.GENITAL/RECTAL: Deferred.MUSCLE/SKELETAL: Strength is 5/5. Subway Operator are equal. Spinal cord stimulatorintact to lower back.NEUROLOGICALLY: Cranial nerves II through XII are grossly intact.VASCULAR: Pulses are symmetrical. No edema.Anesthesia complications: deniesSteroid use: He denies any oral steroid therapy for three weeks or greaterwithin the last 3 months.CSHA Frailty Scale :: 3/10 Managing Well (medical problems are well controlled,but are not regularly active beyond routine walking).Stop Bang Questionnaire - Total Score:STOP-Bang Total Score: 5IMPRESSION and PLAN:Primary Diagnosis: Nonrheumatic aortic valve insufficiency. Surgery asper Dr. Genao.Secondary Diagnosis and Plan:1. CAD EKG obtained in Pre-Admission testing or external EKG within 6 months,Continuation of cardiac medications post-operatively based on clinical status2. Hypertension Continuation of prior to admission anti-hypertensivemedications unless precluded by clinical status.3. GI prophylaxis Per surgeon4. DVT prophylaxis Early ambulation. Pneumatic compression device.Subcutaneous Heparin or LMW Heparin if clinically indicated5. Alcohol dependence Routine evaluation using GMAW withdrawal scale and PRNbenzodiazepines based on GMAW scoreBased on above medical co morbidities, length of stay may be prolonged greaterthan previously anticipated.ALLERGIES:Patient has no known drug allergies.04/02/2020 11:28 Samuel Byrd NPThis document or parts of this document, were dictated using [employer] software. A reasonable attempt at proofreading has beenmade to minimize errors. Please call with any questions or corrections. Name Value Range Interpretation Code Description Data Debbie rce(s) Supporting Document(s) ID Date Data Source [id number] 04/02/2020 10:01:02 PM EST [facility] SPEC EXP DATE 04/07/2020ATI ENT ABO/Rh A POSITIVEANTIBODY SCREEN NEGATIVETESTING SITE PERFORMED AT [address] [place] [id number] Name Value Range Interpretation Code Description Data Debbie rce(s) Supporting Document(s) TYPE AND SCREEN [facility] ID Date Data Source [id number] 04/02/2020 07:01:34 PM EST [facility] Name Value Range Interpretation Code Description Data Debbie rce(s) Supporting Document(s) HEMOGLOBIN A1C @ 5.9 % (4.0-6.0) [facility] Performed using Siemens [place] immunoassa y.Care must be taken when interpreting DxN4sohgices in patients with a hemoglobin variantor decreased erythrocyte lifespan. Values 5.7 - 6.4% suggest prediabetes.Values >=6.5% are diagnostic for diabetes.REFERENCE: DIABETES CARE 2018: 41(S13-S27). EST AVERAGE GLUCOSE 123 mg/dL [facility] ID Date Data Source [id number] 04/02/2020 06:39:07 PM EST [facility] Name Value Range Interpretation Code Description Data Debbie rce(s) Supporting Document(s) ROOM TEMP AB SCREEN [facility] ROOM TEMP AB SCREEN NEGATIVE ID Date Data Source [id number] 04/02/2020 06:16:26 PM EST [facility] Name Value Range Interpretation Code Description Data Debbie rce(s) Supporting Document(s) NT PRO BNP 163 pg/mL (0-125) H [facility] ID Date Data Source [id number] 04/02/2020 06:16:26 PM EST [facility] Name Value Range Interpretation Code Description Data Debbie rce(s) Supporting Document(s) SODIUM 134 mmol/L (136-145) L [facility] POTASSIUM 4.8 mmol/L (3.6-5.2) [facility] CHLORIDE 97 mmol/L (100-108) L [facility] CO2 29 mmol/L (22-31) [facility] ANION GAP 8 mmol/L (7-16) [facility] UREA NITROGEN 12 mg/dL (7-24) [facility] CREATININE 0.89 mg/dL (0.80-1.30) [facility] BUN/CREAT RATIO 13.5 RATIO (10.0-20.0) [facility] GLUCOSE 99 mg/dL (70-99) [facility] CALCIUM 9.5 mg/dL (8.4-10.2) [facility] TOTAL PROTEIN 7.1 g/dL (6.4-8.2) [facility] ALBUMIN 4.2 g/dL (3.2-4.5) [facility] GLOBULIN 2.9 g/dL (2.7-4.3) [facility] ALB/GLOB RATIO 1.4 RATIO [facility] ALKALINE PHOSPHATASE 139 U/L (45-117) H [facility] BILIRUBIN,TOTAL 0.4 mg/dL (0.0-1.0) [facility] PLEASE NOTE:Total bilirubin results may be falselyelevated in patients taking Eltrombopag. AST (SGOT) 20 U/L (11-39) [facility] ALT (SGPT) 27 U/L (12-78) [facility] GFR >60 ml/min/1.73m2 (>59) [facility] GFR ( AMER) >60 ml/min/1.73m2 (>59) [facility] GFR INTERPRETATION [facility] --NORMAL KIDNEY FUNCTION OR MILD DISEASE - GFR >OR= 60CHRONIC KIDNEY DISEASE - GFR 15 - 59RENAL FAILURE - GFR <15 Est. GFR calculation based on the MDRDstudy equation, which assumes a steadystate for creatinine. Est. GFR should notbe used for medication dosing. ID Date Data Source [id number] 04/02/2020 04:34:24 PM EST [facility] Name Value Range Interpretation Code Description Data Debbie rce(s) Supporting Document(s) WBC 6.1 10*3/uL (4.1-11.0) [facility] RBC 3.38 10*6/uL (4.60-6.10) L [facility] HGB 8.3 g/dL (13.5-18.0) L [facility] HCT 25.5 % (41.0-53.0) L [facility] MCV 75.5 fL (80.0-95.0) L [facility] MCH 24.5 pg (27.0-32.0) L [facility] MCHC 32.5 g/dL (32.0-36.0) [facility] RDW 16.8 % (10.5-14.5) H [facility] PLT 513 10*3/uL (150-450) H [facility] MPV 6.5 fL (7.1-10.7) L [facility] NEUT % 72.2 % (35.0-75.0) [facility] LYMPH % 16.7 % (16.0-52.0) [facility] MONO % 9.8 % (0.0-8.0) H [facility] EOS % 0.4 % (0.0-5.0) [facility] BASO % 0.9 % (0.0-4.0) [facility] NEUT # 4.4 10*3/uL (1.8-7.7) [facility] LYMPH # 1.0 10*3/uL (1.2-4.8) L [facility] MONO # 0.6 10*3/uL (0.0-0.8) [facility] Eosinophils [#/volume] in Blood by Automated count 0.0 10*3/uL (0.0-0 .5) [facility] BASO # 0.1 10*3/uL (0.0-0.2) [facility] ID Date Data Source [id number] 04/02/2020 04:28:10 PM EST [facility] Name Value Range Interpretation Code Description Data Debbie rce(s) Supporting Document(s) PT 10.4 s (9.2-11.9) [facility] INR 1.00 [facility] SUGGESTED THERAPEUTIC RANGES USING INR F ORSTABILIZED ANTICOAGULATED PATIENTS:STANDARD DOSE THERAPY INR 2.0-3.0 DVT, PE, PREVENT DVT OR EMBOLISMHIGH DOSE THERAPY INR 2.5-3.5 PREVENT EMBOLISM FROM MECHANICAL HEART VALVE ID Date Data Source [id number] 04/02/2020 04:28:10 PM EST [facility] Name Value Range Interpretation Code Description Data Debbie rce(s) Supporting Document(s) APTT 21.5 s (22.0-34.3) L [facility] ID Date Data Source [id number] 04/02/2020 07:35:56 PM EST [facility] Name Value Range Interpretation Code Description Data Debbie rce(s) Supporting Document(s) COLOR [facility] APPEARANCE [facility] SPEC GRAV URINE 1.008 (1.003-1.030) [facility] PH URINE 7.0 (5.0-7.5) [facility] LEUK ESTERASE (NEG) [facility] NITRITE URINE (NEG) [facility] PROTEIN URINE (NEG) [facility] GLUCOSE URINE (NEG) [facility] KETONE URINE (NEG) [facility] UROBILINOGEN 0.2 mg/dL (0-1.0) [facility] BILIRUBIN URINE (NEG) [facility] BLOOD/HGB URINE (NEG) [facility] ID Date Data Source [id number] 04/03/2020 03:16:07 PM EST [facility] SPECIMEN DESCRIPTION MIDSTREAM UR INE,CLEAN CATCHCULTURE RESULTS NO GROWTHREPORT STATUS FINAL 04/03/2020 Name Value Range Interpretation Code Description Data Debbie rce(s) Supporting Document(s) ID Date Data Source [id number] 04/03/2020 11:20:01 AM EST [facility] Name Value Range Interpretation Code Description Data Debbie rce(s) Supporting Document(s) SPECIMEN DESCRIPTION [facility] STAPH SCREEN RESULTS (ONEGSA) [facility] COMMENT [facility] GENE TO DETECT STAPH AUREUS. (2) RT-P CR WAS PERFORMED FOR THE mecA AND [employer] GENES TO DETECT METHICILLIN RESISTANCE IN STAPH AUREUS. ID Date Data Source [id number] 04/03/2020 06:08:42 PM EST Ceci Becerra Name Value Range Interpretation Code Description Data Debbie rce(s) Supporting Document(s) SARS-COV-2 RAD Ceci Becerra Not DetectedReference range: Not Detecte d This nucleic acid amplification test was developed and its performance characteristics determined by [employer]. Nucleic acid amplification tests include RT-PCR and TMA. This test has not been FDA cleared or approved. This test has been authorized by FDA under an Emergency Use Authorization (EUA). This test is only authorized for the duration of time the declaration that circumstances exist justifying the authorization of the emergency use of in vitro diagnostic tests for detection of SARS-CoV-2 virus and/or diagnosis of COVID-19 infection under section 564(b)(1) of the Act, 21 U.S.C. 360bbb-3(b) (1), unless the authorization is terminated or revoked sooner. When diagnostic testing is negative, the possibility of a false negative result should be considered in the context of a patient's recent exposures and the presence of clinical signs and symptoms consistent with COVID- 19. An individual without symptoms of COVID- 19 and who is not shedding S ARS-CoV-2 virus would expect to have a negative (not detected) result in this assay. Performed At: [facility] [address] [place], [place] [id number] Markie Rouse PhD Ph:[phone] ID Date Data Source [id number] 02/24/2020 03:01:28 PM EST [facility]FORMATIONPatient MRN Name Date of Age Gend*PT [id number] Hiral Shi 1960 59 years M ---PT Location Admission Date/Time Visit ID Attending Provider --- --- --- --- EPI ID CSN Admitting Provider [id number] ---Addended by: ISAC JONES on: 02/24/2020 03:01 PM Modules accepted: Orders, SmartSet Name Value Range Interpretation Code Description Data Debbie rce(s) Supporting Document(s) ID Date Data Source [id number] 02/24/2020 02:49:19 PM EST [facility]Patient [facility] Name Date of Age Gend*PT [id number] Hiral Shi 1960 59 years M HOPPT Location Admission Date/Time Visit ID Attending ProviderCV-[id number] 02/24/20 0614 --- --- EPI ID CSN Admitting Provider [id number] Marla Marino MD([id number])Cardiothoracic Surgery ConsultMicjose StallworthN: [id number] for consult: aortic valve stenosisAssessment/Plan:Active Problems: Peripheral vascular disease Cigarette smoker Essential hypertension Hyperlipidemia Aortic valve stenosis After I reviewed detailed history and exam, I believe the patient may be bettertreated with surgical aortic replacement. I felt the surgical risk should beless than 1% with complication includes, but not limited to post-op bleeding,irregular heart rhythm, wound infection, organ failures such as kidney failure,respiratory failure and stroke, etc. Patient understands the benefit vs risks.He agrees with the plan for minimally invasive approach.Subjective:HPI: This is a 59 years old male patient with symptoms of exertion relatedfatigue and shortness of breath and two episodes of syncope. He states symptomsstarted a few months ago, gradually getting worse, usually relieved withresting. Denies any chest pain, or dizziness. Echocardiogram shows severe aorticvalve stenosis.Past Medical History:The following portions of the patient's history were reviewed and updated asappropriate: allergies, current medications, past family history, past medicalhistory, past social history, past surgical history and problem list.Past Medical History:Diagnosis Date Abnormal carotid ultrasound 01/26/2020 Bilateral less then 50% stenosis Aortic stenosis Carotid Ultrasound 04/2018 bilateral less then 50% stenosis CTA abdomen and LE 01/19/2015 50-70% L iliac stenosis, 80-85% R iliac stenosis, occlusion of R poplitealartery Echocardiogram 12/06/2014 LV EF 55-60%, mild to moderate (CAROLA 1.3cm2, mean gradient 23mmHg) - [facility] Echocardiogram 01/08/2016 Normal LV size with mild LVH and overall preserved LV systolic function.Grade 1 diastolic dysfunction. 1-2+ AI, 1-2+ (mean gradient 25 mmHg).Aortic root normal size. No significant mitral and tricuspid valve disease.Normal central venous pressure. Unable to estimate pulmonary artery pressure Echocardiogram 04/2018 Moderate LVH, LV EF 65%. Grade I diastolic dysfunction. Moderately severe (mean gradient 43mmHg, CAROLA 1.3cm2). Normal CVP. Unable to determine pulmonaryartery pressure. GERD (gastroesophageal reflux disease) Hyperlipidemia Hypertension Low back pain PAD (peripheral artery disease) RLS (restless legs syndrome) Stress Test 07/2012 8 METs, LV EF 60-65%, no ischemia, mild LVH, mild aortic stenosisPast Surgical History:Procedure Laterality Date ANGIOPLASTY / STENTING FEMORAL APPENDECTOMY CERVICAL FUSION COLONOSCOPY FEMORAL ARTERY - POPLITEAL ARTERY BYPASS GRAFT Right 2015 hydrocelectomy Bilateral LUMBAR FUSION TONSILLECTOMYFamily HistoryProblem Relation Age of Onset COPD Mother Coronary artery disease FatherSocial HistorySocioeconomic History Marital status: Spouse name: None Number of children: 1 Years of education: None Highest education level: NoneOccupational History 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 Financial resource strain: None Food insecurity: Worry: None Inability: None Transportation needs: Medical: None Non-medical: NoneTobacco Use Smoking status: Former Smoker Types: Cigarettes Last attempt to quit: 2020 Years since quittin.0 Smokeless tobacco: Never Used Tobacco comment: Quit July 2019Substance and Sexual Activity Alcohol use: Yes Alcohol/week: 3.0 - 4.0 standard drinks Types: 3 - 4 Cans of beer per week Frequency: 4 or more times a week Drinks per session: 3 or 4 Binge frequency: Less than monthly Comment: daily Drug use: Yes Frequency: 7.0 times per week Types: Marijuana Comment: last used on 02/23/20 Sexual activity: NoneLifestyle Physical activity: Days per week: None Minutes per session: None Stress: NoneRelationships Social connections: Talks on phone: None Gets together: None Attends moravian service: None Active member of club or organization: None Attends meetings of clubs or organizations: None Relationship status: None Intimate partner violence: Fear of current or ex partner: None Emotionally abused: None Physically abused: None Forced sexual activity: NoneOther Topics Concern NoneSocial History Narrative NoneNo medications prior to admission.No Known Drug AllergiesReview of Systems:Review of SystemsConstitutional: Positive for fatigue. Negative for activity change, appetitechange, chills, fever and unexpected weight change.HENT: Negative for congestion, sore throat, trouble swallowing and voice change.Eyes: Negative for photophobia and visual disturbance.Respiratory: Positive for shortness of breath. Negative for cough and chesttightness.Cardiovascular: Negative for chest pain, palpitations and leg swelling.Gastrointestinal: Negative for abdominal pain, constipation, diarrhea, nauseaand vomiting.Endocrine: Negative for polydipsia, polyphagia and shirin yuria.Genitourinary: Negative for dysuria and hematuria.Musculoskeletal: Negative for arthralgias and back pain.Skin: Negative for pallor, rash and wound.Allergic/Immunologic: Negative for environmental allergies, food allergies andimmunocompromised state.Neurological: Negative for dizziness, syncope and light-headedness.Hematological: Negative for adenopathy. Does not bruise/bleed easily.Psychiatric/Behavioral: Negative for confusion and hallucinations.Objective:Body mass index is 29 kg/m .Temp: [97.7 F-98.1 F] 97.7 FHeart Rate: [77-86] 86Resp: [16] 16BP: (111-151)/(58-83) 137/69Physical ExamConstitutional: He is oriented to person, place, and time. He appearswell- developed and well-nourished.HENT:Head: Normocephalic and atraumatic.Right Ear: External ear normal.Left Ear: External ear normal.Eyes: Pupils are equal, round, and reactive to light. Conjunctivae and EOM arenormal. Right eye exhibits no discharge. Left eye exhibits no discharge.Neck: Normal range of motion. Neck sup ple. No JVD present. No tracheal deviationpresent.Cardiovascular: Normal rate, regular rhythm and intact distal pulses. Examreveals no friction rub.Murmur heard.Pulmonary/Chest: Effort normal and breath sounds normal. No stridor. Norespiratory distress. He has no wheezes. He has no rales.Abdominal: Soft. Bowel sounds are normal. He exhibits no distension and no mass.Musculoskeletal: Normal range of motion. He exhibits no edema, tenderness ordeformity.Lymphadenopathy: He has no cervical adenopathy.Neurological: He is alert and oriented to person, place, and time. No cranialnerve deficit. Coordination normal.Skin: Skin is warm and dry. No rash noted. No erythema. No pallor. Cardiac Catheterization: no significant CAD Echocardiogram: severe aortic valve stenosis Name Value Range Interpretation Code Description Data Debbie rce(s) Supporting Document(s) ID Date Data Source [id number] 02/24/2020 10:13:33 AM EST [facility] Name Value Range Interpretation Code Description Data Debbie rce(s) Supporting Document(s) &PDF [facility] OCPEJn6uRvNUGyZz52/LYJlvQQFrf9AtYGnoWSc9SOcuESDmB3WuhBebURvSN7VHGnwVCKPOCMJVAZ0x oRX [file] ICAgICAgICAgICAgICAgICAgICAgICAgICAgICAgIC IjMLIeWCTaIYDyMYBvFNUhGDEzRTIgLPBcTJ0NAQHaUWBzHBIiHZExCTIkDDCkAUAkUPLzIRGwZVTqQG AgICAgICAgICAgICAgICAgICAgICAgICAgICAgICAgICAgICAgICAgICAgICAgICAgICAgICAgICAgIC NsOEWhRXKgTT4PHGVbOQAsKHIbMIQuBHYbHYXkSKZf ICAgICAgICAgICAgICAgICAgICAgICAgICAgICAgICAgICAgICAgICAgICAgICAgICAgICAgICAgICAg NQYgMNFwQRUyUMHiELIrRZRjLC8XJBHjAVRkLSZtYAVqNTXnEVSrWCTcZYEcSKYnKQAvFWFkRYDsGMZr ICAgICAgICAgICAgICAgICAgICAgICAgICAgICAgIC CoLOPeNFVlCYCoPPQlZHDgISUpBWNrFHLjLTZaOD3CAYPkYJKlUAGfFOWtCNIlCDOtITJjIGWlUZYaRH AgICAgICAgICAgICAgICAgICAgICAgICAgICAgICAgICAgICAgICAgICAgICAgICAgICAgICAgICAgIC OhPXQfSRVlEZAjEG2OZSItPAQgBWZfPBJyHNXqPZTy ICAgICAgICAgICAgICAgICAgICAgICAgICAgICAgICAgICAgICAgICAgICAgICAgICAgICAgICAgICAg JOBsSFOwKRJmSEChBEVnCLMhEODtCE7OMUGbTBDbSBNnMHYiEMVqWYCiRLNyFYBuLNAvFGIpCZWjNMJu ICAgICAgICAgICAgICAgICAgICAgICAgICAgICAgIC YrPBKaKWLdQNOmWHYuLUSgROZkOLXnOLYmYVEzIZCkUL3LNUSaKROiDGPuPMTvZOOwNCZbTZAdAGSvRI AgICAgICAgICAgICAgICAgICAgICAgICAgICAgICAgICAgICAgICAgICAgICAgICAgICAgICAgICAgIC ArXKElXMQvJIVjXPBnAI0WNPZsKOOlIANkRKXiTKKt ICAgICAgICAgICAgICAgICAgICAgICAgICAgICAgICAgICAgICAgICAgICAgICAgICAgICAgICAgICAg CUNgMHCjRWUqIGLmOSEpAGXvYWNvOZPtDU4MWOFoJQBiEGMrOALmIZZgPTOyDYNaXHKvOYYfXAHfUJUe ICAgICAgICAgICAgICAgICAgICAgICAgICAgICAgIC NzFLFfHMUgYMQkIDRkYUYuITRlOSMwSSWqRYMfBGLqSUIaXB8BEF58wPXsp2W7NWDxEV5hbab/Pg0KDQ rhrcKhnWDeHC9NVjJpGS5cxo7KClCgRG9rye3NJEjKDcHbY2N2kTDvBPQeUORBBzOqR81wTXdkEu51OM khSLHwWjLqPUf3Ss8KAoSdF2lyPAYmDxE1DUOqNbU6 LRPmGhU1TZUjSiFbMCRqBEKkAD6BMXHlI476xbEgIH8TTe8GNyTuHJ7ter7VDzSdUGLdSdxHImb5TIab BM9GwSCseWVdPbLqGUOUOqYqL0yhg0MaJrugACMZGSfmNH5Za3UynWDhJGc+Ed7UIE2nu3BuWYnsIkUd AZ1qio3CJXlCPgSlI4ZnjVtqTLjyuWhkpbOvLV0IWC VnNFRpdDQaTNzdKJPSYM9ZWNbfKXU9TybdqqNxfZXhOYyyDO4BNGJutlDtBoFhGGIXFXm+Uj5PMR4ng2 HgMVkhENSeOF9bfi9BDUlVTxNiZ9T8uCFsG2R8HMiuQy0SRAWsBHHiWeZpRGNCSIuoTP4LLK1qvfW6DT 0PlZFaPJPcYRHutSAbFDe8B83pbNZyPPnlDF6XBMW+ Krysta+Ap2YNJIkFEYbUJSmOiQyTNHNYtJeS2KyO7TUh4AcR4ZqOP03rHjulyNuUJkrVU7ILZ5iNLDkHKKA EZ4LzYGvqG2mjbSkXoVeCFFKWhUcO28ufXAdBCKgFCQ3MWGgCd1UQWIjI5WbnbHoxSlzvnGkMIFuZWBQ RX9AHOjlehRbiVXgaZrdJI73nIbiHP2OXn0WCrPcQE 7epj4FgNAcUk8BVEVjQF8YAYBbGWYiAWXqVUF2BQJpNsFnKTlcFVEaOUNoKBT6SGSpBJTvQQ4NHqHpKA MdOOS7RRXsMCVhAFJctx4IFKCcTQN0PQunLWMfGEUtDGUwIEscOIHwXSYgDJmlQXIfCHOdWY3NBnPqSZ VnXCSbKumpYYMnUBQnce3ANVFsZMVrOcKiYKPmPNJa BAKbDRetMGPoVIQ4MFzsTDSpCCCzAV1AOhApXBElGYShZzVnLARcMILfxd8GKQTbLTAeZus2PfIgYDQw UXJgBEaqPWUtASM9KGOiVNVbECLsQZ1EPoKpGUNkFUrxZspuCWJmFHLpvr3OLRKiASAjJBMvZZOjOFZr FSFtMLvnCXUjLOR1Axg9OVDiWBXfSU3JOoDuSGPyYX r2TIGtBXStLARksr4BWXInMCBqIVc1ZPDoVMIlASJpBKshIKAsGHGvIuHeLEKhDBTkBL8SLmRfRXNvSZ G2RmCzXVEhJWXfng3GNKDoSFOpKISfUnMnOROvIHPjOBvwEDYhFXM9UUN3JWTfMBAzJN4FMnFtLBIsRZ X9IrTxIYNqBGJqba0GEBCeEAWqKrR4AKKcRGYcLPHp MUitTCZzVEN3QCXfTUWbKVQjDK2BGbBvGWNeWpbuHRWqBTGcWNKjno6FWJTdMPV9Ugk8KnRiTWFwUIHi DOeiMANkDEN1BiyjCDRcRFMiYW8DWvJxWDMwDEt5PkvuQVQhMPLoxh6YKFVqWHH6FLj5BIEfSMZjKLGf ZGayYSQmZRQ1DTm1BRKdETPqMU4HCqZmGKamPUMHQq g3ZCivI7a9BYRxJU9HD0Dcc0EuToijOSXBDGwhPH4jbdWlDLErTh2ZX9cCOmf1Y0P1RyB2EPQ6VCncTU e0SNG9CtyaBAGnBQEqI8I4AI1jZQn0GWckTyggEsQmGqJ4UWr2NQN8ADRqNvCiLSKyEldeKhYyVG5FVj 8EPvS0HAQ2yJEsEy7VOEtbSJZLBtUdWR2ZOOt= ID Date Data Source [id number] 02/24/2020 06:53:35 AM EST [facility] Name Value Range Interpretation Code Description Data Debbie rce(s) Supporting Document(s) EKG [facility] LJDZXz3hMbIECrEep9XkMfFwZCHoTQ1txlv6V3T5dWZpE9IvbVPlh4lzO2QxB9RsRVZaIOEANX6QuLPq jb2 [file] ++salesperson meats/P+/nhC/q8nSOtvbZkgxj60Ml6+nlnK61ym451zvL5klanUATMDDZK+aqQJEO+IiRLpu6AKQPcp1 [file] vfNHJ3Fs5UlzKcXDDnCEVFOd3Fz283ZYThAJQGIkm+IxixdSBhlJzqUJLITWO1AAONSCDSC5V= ID Date Data Source [id number] 02/24/2020 07:33:30 AM EST [facility] Name Value Range Interpretation Code Description Data Debbie rce(s) Supporting Document(s) SODIUM 137 mmol/L (136-145) [facility] POTASSIUM 4.5 mmol/L (3.6-5.2) [facility] SLIGHT HEMOLYSIS CHLORIDE 101 mmol/L (100-108) [facility] CO2 26 mmol/L (22-31) [facility] ANION GAP 10 mmol/L (7-16) [facility] UREA NITROGEN 14 mg/dL (7-24) [facility] CREATININE 0.94 mg/dL (0.80-1.30) [facility] BUN/CREAT RATIO 14.9 RATIO (10.0-20.0) [facility] GLUCOSE 106 mg/dL (70-99) H [facility] CALCIUM 9.2 mg/dL (8.4-10.2) [facility] GFR >60 ml/min/1.73m2 (>59) [facility] GFR ( AMER) >60 ml/min/1.73m2 (>59) [facility] GFR INTERPRETATION [facility] --NORMAL KIDNEY FUNCTION OR MILD DISEASE - GFR >OR= 60CHRONIC KIDNEY DISEASE - GFR 15 - 59RENAL FAILURE - GFR <15 Est. GFR calculation based on the MDRDstudy equation, which assumes a steadystate for creatinine. Est. GFR should notbe used for medication dosing. ID Date Data Source [id number] 02/24/2020 06:53:36 AM EST [facility] Name Value Range Interpretation Code Description Data Debbie rce(s) Supporting Document(s) WBC 7.4 10*3/uL (4.1-11.0) [facility] RBC 3.68 10*6/uL (4.60-6.10) L [facility] HGB 9.7 g/dL (13.5-18.0) L [facility] HCT 29.1 % (41.0-53.0) L [facility] [place] [address] [place] [address] MCV 78.9 fL (80.0-95.0) L [facility] MCH 26.3 pg (27.0-32.0) L [facility] MCHC 33.3 g/dL (32.0-36.0) [facility] RDW 17.1 % (10.5-14.5) H [facility] PLT 391 10*3/uL (150-450) [facility] MPV 6.3 fL (7.1-10.7) L [facility] ID Date Data Source [id number] 02/19/2020 10:00:00 AM [facility] Name Value Range Interpretation Code Description Data Debbie rce(s) Supporting Document(s) SARS coronavirus 2 RNA Not Detected [facility] This lab was ordered by [facility] and reported by [facility]. ID Date Data Source H PYLORI SERUM QUANT IGM 01/24/2020 12:00:00 AM EST eCW1 ([facility]ly [facility]) Name Value Range Interpretation Code Description Data Debbie rce(s) Supporting Document(s) <9.0 0.0-8.9 H PYLORI SERUM QUANT IGM eCW1 (Count Includes [facility]) ID Date Data Source H PYLORI SERUM QUANT IGA 01/24/2020 12:00:00 AM EST eCW1 ([facility]) Name Value Range Interpretation Code Description Data Debbie rce(s) Supporting Document(s) <9.0 0.0-8.9 H PYLORI SERUM QUANT IGA eCW1 (Count Includes [facility]) ID Date Data Source H PYLORI SERUM QUANT IgG REINALDO 01/24/2020 12:00:00 AM EST eCW1 (Count Includes [facility]) Name Value Range Interpretation Code Description Data Debbie rce(s) Supporting Document(s) 0.50 0.00-0.79 H PYLORI SERUM QUANT IgG REINALDO eCW1 (Count Includes [facility]) ID Date Data Source CBC with Differential 01/24/2020 12:00:00 AM EST eCW1 ([facility]) Name Value Range Interpretation Code Description Data Debbie rce(s) Supporting Document(s) 10.7 13.5-17.5 HEMOGLOBIN eCW1 ([facility]) 4.17 4.30-6.10 RED BLOOD COUNT eCW1 ([facility]) 6.0 4.0-10.0 WHITE BLOOD COUNT eCW1 ([facility]) 15.2 11.5-14.5 RED CELL DISTRIBUTION WID TH eCW1 (Count Includes [facility]) 31.5 32.0-36.5 MEAN CORPUSCULAR HGB CONC eCW1 (Count Includes [facility]) 25.7 27.0-33.0 MEAN CORPUSCULAR HEMOGLOB IN eCW1 (Count Includes [facility]) 34.0 42.0-52.0 HEMATOCRIT eCW1 ([facility]) 81.5 80.0-96.0 MEAN CORPUSCULAR VOLUME e CW1 (Count Includes [facility]) 19.9 24.0-44.0 LYMPH % eCW1 (Formerly [facility]) 64.2 36.0-66.0 NEUTROPHILS % eCW1 (Count Includes [facility]) 13.5 0.0-5.0 MONO % eCW1 ([facility]) 485 150-450 PLATELET COUNT, AUTOMATED eCW1 (Count Includes [facility]) 1.2 1.5-5.0 LYMPH # eCW1 ([facility]) 0.8 0.0-0.8 MONO # eCW1 ([facility]) 0.8 0.0-1.0 BASO % eCW1 ([facility]) 3.8 1.5-8.5 NEUTROPHILS # eCW1 (Count Includes [facility]) 0.8 0.0-3.0 EOS % eCW1 ([facility]) 0.1 0.0-0.5 EOS # eCW1 ([facility]) 0.1 0.0-0.2 BASO # eCW1 ([facility]) ID Date Data Source [id number] 01/18/2020 11:54:00 AM EST [facility] Name Value Range Interpretation Code Description Data Debbie rce(s) Supporting Document(s) SARS coronavirus 2 RNA [Presence] in Res piratory specimen by RAD with probe detection [facility] This lab was ordered by [facility] a nd reported by [facility]. ID Date Data Source DDIMER QUANT 01/17/2020 12:00:00 AM EST eCW1 ([facility]) Name Value Range Interpretation Code Description Data Debbie rce(s) Supporting Document(s) 1365.93 <500 D-DIMER QUANT eCW1 ([facility] Includes [facility]) ID Date Data Source MAGNESIUM LEVEL 01/17/2020 12:00:00 AM EST eCW1 ([facility]) Name Value Range Interpretation Code Description Data Debbie rce(s) Supporting Document(s) 2.4 1.8-2.4 MAGNESIUM LEVEL eCW1 ([facility]) ID Date Data Source FERRITIN 01/17/2020 12:00:00 AM EST eCW1 ([facility]) Name Value Range Interpretation Code Description Data Debbie rce(s) Supporting Document(s) 17 26-388 FERRITIN eCW1 (Formerly [facility]) ID Date Data Source IRON (FE) 01/17/2020 12:00:00 AM EST eCW1 ([facility]) Name Value Range Interpretation Code Description Data Debbie rce(s) Supporting Document(s) 20 65-175 IRON (FE) eCW1 (Formerly [facility]) ID Date Data Source Comprehensive Metabolic Profile (CMP) 01/17/2020 12:00:00 AM EST eCW1 ([facility] Includes [facility]) Name Value Range Interpretation Code Description Data Debbie rce(s) Supporting Document(s) 78 70-100 GLUCOSE, FASTING eCW1 ([facility]) 10 7-18 BLOOD UREA NITROGEN eCW1 ([facility]) 130 136-145 SODIUM LEVEL eCW1 ([facility]) > 60.0 >49 GLOMERULAR FILTRATION RATE eCW 1 ([facility] Includes [facility]) 4.0 3.5-5.1 POTASSIUM SERUM eCW1 ([facility]) 0.82 0.70-1.30 CREATININE FOR GFR eCW1 ([facility]) 27 21-32 CARBON DIOXIDE LEVEL eCW1 ([facility]) 9.0 8.8-10.2 CALCIUM LEVEL eCW1 ([facility] Includes [facility]) 20 7-37 AST/SGOT eCW1 (Former[facility]) 97 98-107 CHLORIDE LEVEL eCW1 ([facility] Includes [facility]) 6.9 6.4-8.2 TOTAL PROTEIN eCW1 ([facility] Includes [facility]) 131 45-117 ALKALINE PHOSPHATASE eCW1 ([facility]) 0.3 0.2-1.0 BILIRUBIN,TOTAL eCW1 ([facility]) 30 12-78 ALT/SGPT eCW1 ([facility]) 1.2 ALBUMIN/GLOBULIN RATIO eCW1 ([facility]) 3.8 3.2-5.2 ALBUMIN eCW1 (Formerly [facility]) ID Date Data Source CARDIAC MARKER PANEL 01/17/2020 12:00:00 AM EST eCW1 ([facility]) Name Value Range Interpretation Code Description Data Debbie rce(s) Supporting Document(s) 124 39-308 CPK CREATINE PHOSPHOKINASE eCW 1 ([facility] Includes [facility]) 1.9 <3.6 CK-MB VALUE MASS eCW1 ([facility]) < 0.02 < 0.10 TROPONIN I eCW1 ([facility]) 1.53 < OR =4 MB/CK RELATIVE INDEX eCW1 ([facility]) ID Date Data Source C REACTIVE PROTEIN QUANTITATIV (At [facility]) 12/09/2019 12:00 :00 AM EDT eCW1 ([facility] Includes [facility]) Name Value Range Interpretation Code Description Data Debbie rce(s) Supporting Document(s) 0.37 0.00-0.30 C REACTIVE PROTEIN QUANTI TATIV eCW1 ([facility] Includes [facility]) ID Date Data Source FREE T4 & TSH PANEL 12/09/2019 12:00:00 AM EDT eCW1 ([facility]) Name Value Range Interpretation Code Description Data Debbie rce(s) Supporting Document(s) 1.600 0.358-3.740 eCW1 ([facility]) 0.85 0.76-1.46 eCW1 (Formerly [facility]) ID Date Data Source ERYTHROCYTE SEDIMENTATION RATE 12/09/2019 12:00:00 AM EDT eC W1 ([facility] Includes [facility]) Name Value Range Interpretation Code Description Data Debbie rce(s) Supporting Document(s) 8 0-20 ERYTHROCYTE SEDIMENTATION RATE eCW1 (Count Includes [facility]) ID Date Data Source CPK CREATINE PHOSPHOKINASE 12/09/2019 12:00:00 AM EDT eCW1 ( Count Includes [facility]) Name Value Range Interpretation Code Description Data Debbie rce(s) Supporting Document(s) 118 39-308 CPK CREATINE PHOSPHOKINASE eCW 1 (Count Includes [facility]) ID Date Data Source [id number] 05/02/2019 07:15:00 AM EDT MEDENT ([facility], ) Name Value Range Interpretation Code Description Data Debbie rce(s) Supporting Document(s) Glucose, Fasting 110 mg/dL 70-100 Above high normal M EDENT ([facility], ) Blood Urea Nitrogen 12 mg/dL 7-18 Normal (applies to non-nume partha results) [facility] ([facility], ) Creatinine For GFR 0.79 mg/dL 0.70-1.30 Normal (applies to non -numeric results) [facility] ([facility]) Sodium Level 135 meq/L 136-145 Below low normal [facility] ([facility]) Potassium Serum 4.0 meq/L 3.5-5.1 Normal (applies to non-numeric results) [facility] ([facility]) Glomerular Filtration Rate Laboratory test result Normal (applies to non- numeric results) [facility]) <content>Units are mL/min/1.73 m2</content>
<content></content>
<content>Chronic Kidney Disease Staging per NKF:</content>
<content></content>
<content>Stage I & II GFR >=60 Normal to Mildly Decreased</content>
<content>Stage III GFR 30- 59 Moderately Decreased</content>
<content>Stage IV GFR 15-29 Severely Decreased</content>
<content>Stage V GFR <15 Very Little GFR Left</content>
<content>ESRD GFR <15 on APPLE SORTER</content>
<content></content> Carbon Dioxide Level 26 meq/L 21-32 Normal (applies to non-num natasha results) [facility]) Anion Gap 6 meq/L 8-16 Below low normal [facility]) Chloride Level 103 meq/L 98-107 Normal (applies to non-numeric r esults) [facility]) Calcium Level 8.9 mg/dL 8.8-10.2 Normal (applies to non-numeric re sults) [facility]) ID Date Data Source [id number] 05/02/2019 07:15:00 AM EDT [facility]) Name Value Range Interpretation Code Description Data Debbie rce(s) Supporting Document(s) White Blood Count 7.9 10 4.0-10.0 Normal (applies to non-numeri c results) [facility]) Red Blood Count 5.02 10 4.30-6.10 Normal (applies to non-numeric results) [facility] ([facility]) Hemoglobin 15.4 g/dL 13.5-17.5 Normal (applies to non-numeric resul ts) [facility]) Hematocrit 43.9 % 42.0-52.0 Normal (applies to non-numeric resul ts) [facility]) Mean Corpuscular Volume 87.5 fl 80.0-96.0 Normal ( applies to non-numeric results) [facility]) Mean Corpuscular Hemoglobin 30.7 pg 27.0-33.0 Norm al (applies to non-numeric results) [facility] ([facility]) Red Cell Distribution Width 14.6 % 11.5-14.5 Above high normal [facility] ([facility]) Mean Corpuscular HGB Conc 35.1 g/dL 32.0-36.5 Normal (applies to non-numeric results) [facility] ([facility]) Platelet Count, Automated 327 10 150-450 Normal (applies to non-numeric results) [facility] ([facility]) Nucleated Red Blood Cell % 0.0 % 0-0 Normal (applies to n on-numeric results) [facility] ([facility]) ID Date Data Source [id number] 03/14/2019 10:04:00 AM EST [facility]) Name Value Range Interpretation Code Description Data Debbie rce(s) Supporting Document(s) Creatinine For GFR 0.78 mg/dL 0.70-1.30 Normal (applies to non -numeric results) [facility] ([facility]) Glucose, Fasting 100 mg/dL 70-100 Normal (applies to non-numeric results) [facility] ([facility]) Blood Urea Nitrogen 6 mg/dL 7-18 Below low normal [facility] ([facility]) Glomerular Filtration Rate Laboratory test result Normal (applies to non- numeric results) [facility]) <content>Units are mL/min/1.73 m2</content>
<content></content>
<content>Chronic Kidney Disease Staging per NKF:</content>
<content></content>
<content>Stage I & II GFR >=60 Normal to Mildly Decreased</content>
<content>Stage III GFR 30- 59 Moderately Decreased</content>
<content>Stage IV GFR 15-29 Severely Decreased</content>
<content>Stage V GFR <15 Very Little GFR Left</content>
<content>ESRD GFR <15 on APPLE SORTER</content>
<content></content> Potassium Serum 3.7 meq/L 3.5-5.1 Normal (applies to non-numeric results) [facility] Sodium Level 135 meq/L 136-145 Below low normal [facility] ([facility]) Carbon Dioxide Level 31 meq/L 21-32 Normal (applies to non-num natasha results) [facility]) Chloride Level 96 meq/L 98-107 Below low normal MEDE NT ([facility]) Calcium Level 9.3 mg/dL 8.8-10.2 Normal (applies to non-numeric re sults) [facility] ([facility]) Anion Gap 8 meq/L 8-16 Normal (applies to non-numeric resul ts) [facility]) ID Date Data Source [id number] 03/14/2019 10:04:00 AM EST [facility] ([facility]) Name Value Range Interpretation Code Description Data Debbie rce(s) Supporting Document(s) Red Blood Count 5.12 10 4.30-6.10 Normal (applies to non-numeric results) [facility] ([facility]) White Blood Count 8.2 10 4.0-10.0 Normal (applies to non-numeri c results) [facility]) Hematocrit 44.2 % 42.0-52.0 Normal (applies to non-numeric resul ts) [facility]) Hemoglobin 15.6 g/dL 13.5-17.5 Normal (applies to non-numeric resul ts) [facility]) Mean Corpuscular Volume 86.3 fl 80.0-96.0 Normal ( applies to non-numeric results) [facility]) Red Cell Distribution Width 13.5 % 11.5-14.5 Norm al (applies to non-numeric results) [facility]) Mean Corpuscular HGB Conc 35.3 g/dL 32.0-36.5 Normal (applies to non-numeric results) [facility]) Mean Corpuscular Hemoglobin 30.5 pg 27.0-33.0 Norm al (applies to non-numeric results) [facility]) Platelet Count, Automated 375 10 150-450 Normal (applies to non-numeric results) [facility] ([facility], ) Nucleated Red Blood Cell % 0.0 % 0-0 Normal (applies to n on-numeric results) [facility] Procedure Social History Code Duration Value Status Description Data Source(s ) Alcohol intake 03/15/2020 12:00:00 AM EST Yes completed [facility] Smoking 03/15/2020 12:00:00 AM EST Former smoker completed Former smoker [facility] Alcohol intake 02/24/2020 12:00:00 AM EST Yes completed [facility] Smoking 02/24/2020 12:00:00 AM EST Former smoker completed Former smoker [facility] Smoking 02/20/2020 12:00:00 AM EST Former Smoker completed Former Smoker eCW1 ([facility]cludes [facility]) Smoking 02/20/2020 12:00:00 AM EST Former Smoker completed Former Smoker eCW1 ([facility] Includes [facility]) Smoking 02/20/2020 12:00:00 AM EST Former Smoker completed Former Smoker eCW1 ([facility] Includes [facility]) Smoking 02/20/2020 12:00:00 AM EST Former Smoker completed Former Smoker eCW1 ([facility] Includes [facility]) Alcohol intake 02/09/2020 12:00:00 AM EST Yes completed [facility] Smoking 02/09/2020 12:00:00 AM EST Former smoker completed Former smoker [facility] Smoking 02/06/2020 12:00:00 AM EST Former Smoker completed Former Smoker eCW1 ([facility] Includes [facility]) Smoking 02/06/2020 12:00:00 AM EST Former Smoker completed Former Smoker eCW1 ([facility] Includes [facility]) Smoking 02/06/2020 12:00:00 AM EST Former Smoker completed Former Smoker eCW1 ([facility] Includes [facility]) Smoking 02/06/2020 12:00:00 AM EST Former Smoker completed Former Smoker eCW1 ([facility] Includes [facility]) Smoking 01/16/2020 12:00:00 AM EST Former Smoker completed Former Smoker eCW1 ([facility] Includes [facility]) Smoking 01/16/2020 12:00:00 AM EST Former Smoker completed Former Smoker eCW1 ([facility] Includes [facility]) Smoking 01/16/2020 12:00:00 AM EST Former Smoker completed Former Smoker eCW1 ([facility] Includes [facility]) Smoking 01/16/2020 12:00:00 AM EST Former Smoker completed Former Smoker eCW1 ([facility] Includes [facility]) Smoking 12/15/2019 12:00:00 AM EST Patient is a former smoker completed Patient is a former smoker [facility] ([facility], ) Smoking 12/09/2019 12:00:00 AM EDT Former Smoker completed Former Smoker eCW1 ([facility]) Smoking 12/09/2019 12:00:00 AM EDT Former Smoker completed Former Smoker eCW1 ([facility] Includes [facility]) Smoking 12/09/2019 12:00:00 AM EDT Former Smoker completed Former Smoker eCW1 ([facility] Includes [facility]) 02/09/2019 12:00:00 AM EST Cigarette Smoker completed Cig arette Smoker [facility] 02/09/2019 12:00:00 AM EST Current smoker completed Curre nt smoker [facility] 02/09/2019 12:00:00 AM EST Cigarette Smoker completed Cig arette Smoker [facility] 02/09/2019 12:00:00 AM EST Current smoker completed Curre nt smoker [facility] 02/09/2019 12:00:00 AM EST Cigarette Smoker completed Cig arette Smoker [facility] 02/09/2019 12:00:00 AM EST Current smoker completed Curre nt smoker [facility] Vital Signs ID Date Data Source UNK Name Value Range Interpretation Code Description Data Source(s) Body surface area Derived from formula 2.17 m2 2.17 m2 [facility] ([facility], ) Body weight 97.070 kg 97.070 kg [facility] ([facility]) [place] body weight 172 [lb_av] 172 [lb_av] MEDEN T ([facility]) Body mass index (BMI) [Ratio] 29.8 kg/m2 29.8 k g/m2 [facility] ([facility]) Body weight 214.00 [lb_av] 214.00 [lb_av] DEBBIEEN T ([facility], ) Body height 71 [in_i] 71 [in_i] MEDFELISHA ([facility], ) 5'11" Diastolic blood pressure 73 mm[Hg] 73 mm[Hg] MEDFELISHA ([facility], ) Systolic blood pressure 151 mm[Hg] 151 mm[Hg] Meghan REBOLLAR ([facility], ) Oxygen saturation in Arterial blood by Pulse oximetry 96 % 96 % [facility] Body mass index (BMI) [Ratio] 30.54 kg/m2 30.54 kg/m2 [facility] Body weight 99.338 kg 99.338 kg [facility] Body height 180.3 cm 180.3 cm [facility] Heart rate 75 /min 75 /min [facility] Diastolic blood pressure 66 mm[Hg] 66 mm[Hg] [facility] Systolic blood pressure 130 mm[Hg] 130 mm[Hg] [facility] Oxygen saturation in Arterial blood by Pulse oximetry 98 % 98 % [facility] Respiratory rate 16 /min 16 /min [facility] Body temperature 36.5 Ellie 36.5 Ellie [facility] Heart rate 86 /min 86 /min [facility] Diastolic blood pressure 69 mm[Hg] 69 mm[Hg] [facility] Systolic blood pressure 137 mm[Hg] 137 mm[Hg] [facility] Body mass index (BMI) [Ratio] 29.00 kg/m2 29.00 kg/m2 [facility] Body weight 94.3 kg 94.3 kg [facility] Body height 180.3 cm 180.3 cm [facility] Diastolic blood pressure 78 mm[Hg] 78 mm[Hg] eCW1 ([facility]cludes [facility]) Systolic blood pressure 128 mm[Hg] 128 mm[Hg] e CW1 ([facility] Includes [facility]) Body temperature 98.0 [degF] 98.0 [degF] eCW1 ( Count Includes [facility]) Respiratory rate 18 /min 18 /min eCW1 ([facility]) Heart rate 97 /min 97 /min eCW1 ([facility]) Body mass index (BMI) [Ratio] 29.70 kg/m2 29.70 kg/m2 eCW1 ([facility] Includes [facility]) Body height [in_i] eCW1 ([facility]) Body weight 213 [lb_av] 213 [lb_av] eCW1 ([facility]) Oxygen saturation in Arterial blood by Pulse oximetry 96 % 96 % [facility] Body mass index (BMI) [Ratio] 29.71 kg/m2 29.71 kg/m2 [facility] Body weight 96.616 kg 96.616 kg [facility] Body height 180.3 cm 180.3 cm [facility] Heart rate 89 /min 89 /min [facility] Diastolic blood pressure 62 mm[Hg] 62 mm[Hg] [facility] Systolic blood pressure 118 mm[Hg] 118 mm[Hg] [facility] Diastolic blood pressure 70 mm[Hg] 70 mm[Hg] eCW1 ([facility] Includes [facility]) Systolic blood pressure 130 mm[Hg] 130 mm[Hg] e CW1 (Count Includes [facility]) Body temperature 97.7 [degF] 97.7 [degF] eCW1 ( Count Includes [facility]) Respiratory rate 18 /min 18 /min eCW1 ([facility]) Heart rate 105 /min 105 /min eCW1 ([facility]) Body mass index (BMI) [Ratio] 29.48 kg/m2 29.48 kg/m2 W1 (Count Includes [facility]) Body height [in_i] eCW1 ([facility]) Body weight 211.4 [lb_av] 211.4 [lb_av] eCW1 ([facility]) Diastolic blood pressure 70 mm[Hg] 70 mm[Hg] eCW1 ([facility] Includes [facility]) Systolic blood pressure 150 mm[Hg] 150 mm[Hg] e CW1 (Count Includes [facility]) Body temperature 98.6 [degF] 98.6 [degF] eCW1 ( Count Includes [facility]) Respiratory rate 18 /min 18 /min eCW1 ([facility]) Heart rate 103 /min 103 /min eCW1 ([facility]) Body mass index (BMI) [Ratio] 29.87 kg/m2 29.87 kg/m2 eCW1 ([facility] Includes [facility]) Body height [in_i] eCW1 ([facility]) Body weight 214.2 [lb_av] 214.2 [lb_av] eCW1 ([facility]) Body surface area Derived from formula 2.17 m2 2.17 m2 [facility] Body weight 96.674 kg 96.674 kg [facility] ([facility]) [place] body weight 172 [lb_av] 172 [lb_av] MEDEN T ([facility]) Body mass index (BMI) [Ratio] 29.7 kg/m2 29.7 k g/m2 MED[facility] ([facility]) Body weight 213.12 [lb_av] 213.12 [lb_av] MEDEN T ([facility]) Body height 71 [in_i] 71 [in_i] [facility] ([facility]) 5'11" Diastolic blood pressure 82 mm[Hg] 82 mm[Hg] [facility] L arm 133/77 Systolic blood pressure 136 mm[Hg] 136 mm[Hg] M EDENT ([facility]) L arm 133/77 Systolic blood pressure 162 mm[Hg] 162 mm[Hg] e CW1 (Count Includes [facility]) Body temperature 97.4 [degF] 97.4 [degF] eCW1 ( Count Includes [facility]) Respiratory rate 18 /min 18 /min eCW1 ([facility]) Heart rate 97 /min 97 /min eCW1 ([facility]) Body mass index (BMI) [Ratio] 29.70 kg/m2 29.70 kg/m2 eCW1 (Count Includes [facility]) Body height [in_i] eCW1 ([facility]) Body weight 213.0 [lb_av] 213.0 [lb_av] eCW1 ([facility]) Diastolic blood pressure 78 mm[Hg] 78 mm[Hg] eCW1 (Count Includes [facility]) Body weight 92.138 kg 92.138 kg [facility]) [place] body weight 172 [lb_av] 172 [lb_av] MEDEN T ([facility]) Body mass index (BMI) [Ratio] 28.3 kg/m2 28.3 k g/m2 [facility] ([facility]) Body weight 203.12 [lb_av] 203.12 [lb_av] MEDEN T ([facility]) Body height 71 [in_i] 71 [in_i] [facility] ([facility]) 5'11" Diastolic blood pressure 74 mm[Hg] 74 mm[Hg] [facility] ([facility]) Systolic blood pressure 143 mm[Hg] 143 mm[Hg] [facility] ([facility]) Body weight 89.926 kg 89.926 kg [facility] ([facility]) Body mass index (BMI) [Ratio] 27.6 kg/m2 27.6 k g/m2 [facility] ([facility]) Body weight 198.25 [lb_av] 198.25 [lb_av] [facility] Body height 71 [in_i] 71 [in_i] [facility] ([facility]) 5'11" Body temperature 97.1 [degF] 97.1 [degF] [facility] ([facility]) Diastolic blood pressure 68 mm[Hg] 68 mm[Hg] [facility] ([facility]) Systolic blood pressure 124 mm[Hg] 124 mm[Hg] [facility] Body weight 91.400 kg 91.400 kg [facility] ([facility]) Body mass index (BMI) [Ratio] 28.1 kg/m2 28.1 k g/m2 [facility] ([facility]) Body weight 201.50 [lb_av] 201.50 [lb_av] MEDEN T ([facility]) Body height 71 [in_i] 71 [in_i] [facility] ([facility]) 5'11" Body temperature 98.1 [degF] 98.1 [degF] [facility] ([facility]) Diastolic blood pressure 78 mm[Hg] 78 mm[Hg] [facility] ([facility]) Systolic blood pressure 174 mm[Hg] 174 mm[Hg] [facility] Body weight 91.627 kg 91.627 kg [facility] ([facility]) Body mass index (BMI) [Ratio] 28.2 kg/m2 28.2 k g/m2 [facility] ([facility]) Body weight 202.00 [lb_av] 202.00 [lb_av] MEDEN T ([facility]) Body height 71 [in_i] 71 [in_i] [facility] ([facility]) 5'11" Diastolic blood pressure 69 mm[Hg] 69 mm[Hg] [facility] ([facility]) Systolic blood pressure 134 mm[Hg] 134 mm[Hg] [facility] Diastolic blood pressure 72 mm[Hg] 72 mm[Hg] eCW1 ([facility] Includes [facility]) Systolic blood pressure 138 mm[Hg] 138 mm[Hg] e CW1 (Count Includes [facility]) Body temperature 98.8 [degF] 98.8 [degF] eCW1 ( Count Includes [facility]) Respiratory rate 17 /min 17 /min eCW1 ([facility]) Heart rate 90 /min 90 /min eCW1 ([facility]) Body mass index (BMI) [Ratio] 28.73 kg/m2 28.73 kg/m2 eCW1 (Count Includes [facility]) Body height [in_us] eCW1 ([facility]) Body weight Measured 206 [lb_av] 206 [lb_av] eC W1 (Count [facility]cludes [facility]) Diastolic blood pressure 72 mm[Hg] 72 mm[Hg] eCW1 (Count Includes [facility]) Systolic blood pressure 154 mm[Hg] 154 mm[Hg] e CW1 (Count Includes [facility]) Body temperature 98.7 [degF] 98.7 [degF] eCW1 ( Count Includes [facility]) Respiratory rate 20 /min 20 /min eCW1 (Formerly [facility]) Heart rate 110 /min 110 /min eCW1 ([facility]) Body mass index (BMI) [Ratio] 28.78 kg/m2 28.78 kg/m2 eCW1 (Count Includes [facility]) Body height [in_us] eCW1 ([facility]) Body weight Measured 206.4 [lb_av] 206.4 [lb_av ] eCW1 (Count Includes [facility]) Body weight 93.612 kg 93.612 kg MEDENT ([facility], ) Body mass index (BMI) [Ratio] 28.8 kg/m2 28.8 k g/m2 MEDENT ([facility], ) Body weight 206.38 [lb_av] 206.38 [lb_av] DEBBIEEN T ([facility], ) Body height 71 [in_i] 71 [in_i] MEDFELISHA ([facility], ) 5'11" Diastolic blood pressure 82 mm[Hg] 82 mm[Hg] GABRIEL ([facility], ) Systolic blood pressure 154 mm[Hg] 154 mm[Hg] M EDFELISHA ([facility], ) Patient Treatment Plan of Care Planned Activity Planned Date Details Description Data Source (s) Lisinopril 40 MG Oral Tablet 02/26/2020 12:00:00 AM [facility] Chlorthalidone 25 MG Oral Tablet 02/26/2020 12:00:00 AM [facility] Citalopram 40 MG Oral Tablet 01/18/2020 12:00:00 AM [facility] Sucralfate 1000 MG Oral Tablet 01/18/2020 12:00:00 AM EST [facility] Tamsulosin hydrochloride 0.4 MG Oral Capsule 01/18/2020 12:00:00 AM EST [facility] Lisinopril 40 MG Oral Tablet 01/18/2020 12:00:00 AM EST [facility] Chlorthalidone 25 MG Oral Tablet 01/18/2020 12:00:00 AM EST [facility] Sucralfate 1000 MG Oral Tablet [Carafate] 01/17/2020 12:00:00 AM ES T eCW1 (Count Includes [facility]) Sucralfate 1000 MG Oral Tablet [Carafate] 01/17/2020 12:00:00 AM ES T eCW1 (Count Includes [facility]) Sucralfate 1000 MG Oral Tablet [Carafate] 01/17/2020 12:00:00 AM ES T eCW1 (Count Includes [facility]) Sucralfate 1000 MG Oral Tablet [Carafate] 01/17/2020 12:00:00 AM ES T eCW1 (Count Includes [facility]) Mirtazapine 7.5 MG Oral Tablet 01/16/2020 12:00:00 AM EST [facility] Mirtazapine 7.5 MG Oral Tablet 01/16/2020 12:00:00 AM EST eCW1 (Count Includes [facility]) Mirtazapine 7.5 MG Oral Tablet 01/16/2020 12:00:00 AM EST eCW1 (Count Includes [facility]) Mirtazapine 7.5 MG Oral Tablet 01/16/2020 12:00:00 AM EST eCW1 (Count Includes [facility]) Mirtazapine 7.5 MG Oral Tablet 01/16/2020 12:00:00 AM EST eCW1 (Count Includes [facility]) Nortriptyline 25 MG Oral Capsule 12/09/2019 12:00:00 AM EDT [facility] atorvastatin 40 MG Oral Tablet 12/09/2019 12:00:00 AM EDT [facility] Tamsulosin hydrochloride 0.4 MG Oral Capsule [Flomax] 12/09/2019 12:00:00 AM EDT eCW1 (Formerly [facility]) Tamsulosin hydrochloride 0.4 MG Oral Capsule [Flomax] 12/09/2019 12:00:00 AM EDT eCW1 (Formerly [facility]) Tamsulosin hydrochloride 0.4 MG Oral Capsule [Flomax] 12/09/2019 12:00:00 AM EDT eCW1 (Formerly [facility]) atorvastatin 80 MG Oral Tablet 10/18/2019 12:00:00 AM EDT [facility] Multiple Vitamin tablet 02/04/2018 12:00:00 AM EST [facility] Acetaminophen 325 MG / Hydrocodone Bitartrate 10 MG Or al Tablet 01/30/2015 12:00:[address] [facility]
[2020-04-05 09:20] LABS: HEMATOCRIT 25.2 % (42.0-52.0); HEMOGLOBIN 7.8 g/dl (13.5-17.5); MEAN CORPUSCULAR HEMOGLOBIN 23.6 pg (27.0-33.0); MEAN CORPUSCULAR VOLUME 76.1 fl (80.0-96.0); PLATELET COUNT, AUTOMATED 489 10^3/uL (150-450); RED BLOOD COUNT 3.31 10^6/uL (4.30-6.10); WHITE BLOOD COUNT 5.6 10^3/uL (4.0-10.0)
--- OUTSIDE RECORDS SUMMARY | 2020-04-05 09:21 | CCD ---
Author Author [facility] Organization [facility] Address Unknown Phone Unavailable Care Team Providers Care Religious Studies Professor Name Role Phone Genao, Zhandong Unavailable Unavailable [...] Zhandong Unavailable Unavailable Genao, Zhandong Unavailable Unavailable Egnao, Zhandong Unavailable Unavailable Genao, Zhandong Unavailable Unavailable [...] Zhandong Unavailable Unavailable Henry Villaseñorjtech Unavailable Unavailable Henry Villaseñorjtech Unavailable Unavailable Janell Villaseñortech Unavailable Unavailable Henry Villaseñorjtech Unavailable Unavailable Henry Villaseñorjtech Unavailable Unavailable Henry Villaseñorjtech Unavailable Unavailable Henry Villaseñorjtech Unavailable Unavailable Henry Villaseñorjtech Unavailable Unavailable Janell Villaseñortech Unavailable Unavailable Henry Villaseñorjtech Unavailable Unavailable Henry Villaseñorjtech Unavailable Unavailable Henry Villaseñorjtech Unavailable Unavailable Henry Villaseñorjtech Unavailable Unavailable Henry Villaseñorjtech Unavailable Unavailable Loyd Villaseñor MD Unavailable Unavailable Henry Villaseñorjtech Unavailable Unavailable Henry Villaseñorjtech Unavailable Unavailable Henry Villaseñorjtech Unavailable Unavailable Henry Villaseñorjtech Unavailable Unavailable Henry Villaseñorjtech Unavailable Unavailable Henry Villaseñorjtech Unavailable Unavailable Henry Villaseñorjtech Unavailable Unavailable Henry Villaseñorjtech Unavailable Unavailable Henry Villaseñorjtech Unavailable Unavailable Henry Villaseñorjtech Unavailable Unavailable Henry Villaseñorjtech Unavailable Unavailable Henry Villaseñorjtech Unavailable Unavailable Henry Villaseñorjtech Unavailable Unavailable Henry Villaseñorjtech Unavailable Unavailable SlemohankaHenryjtech Unavailable Unavailable SleHenry clarkejtech Unavailable Unavailable SlemohankaHenryjtech Unavailable Unavailable SleHenry clarkejtech Unavailable Unavailable Henry Villaseñorjtech Unavailable Unavailable SlezkaLoyd MD Unavailable Unavailable Slezka, Vojtech Unavailable Unavailable SleHenry clarkejtech Unavailable Unavailable ColekaHenryjtech Unavailable Unavailable Henry Villaseñorjtech Unavailable Unavailable SlemohankaHenryjtech Unavailable Unavailable SlemohankaHenryjtech Unavailable Unavailable Slemohanka Vojtech Unavailable Unavailable SlemohankaHenryjtech Unavailable Unavailable SlezkaHenryjtech Unavailable Unavailable ColekaHenryjtech Unavailable Unavailable SlemohankaHenryjtech Unavailable Unavailable SlemohankaHenryjtech Unavailable Unavailable Slemohanka Vojtech Unavailable Unavailable Coleka Vojtech Unavailable Unavailable Slemohanka Vojtech Unavailable Unavailable ColekaHenryjtech Unavailable Unavailable Henry Villaseñorjtech Unavailable Unavailable Henry Villaseñorjtech Unavailable Unavailable Henry Villaseñorjtech Unavailable Unavailable Henry Villaseñorjtech Unavailable Unavailable Henry Villaseñorjtech Unavailable Unavailable Janell Villaseñortech Unavailable Unavailable Janell Villaseñortech Unavailable Unavailable JOMAR SPEARS MD Unavailable Unavailable [...] Unavailable JOMAR SPEARS MD Unavailable Unavailable JOMAR SPEARSOOK Unavailable Unavailable AFTABWAIISRRAELJOMAR FAROOK Unavailable Unavailable AFTABWAIJOMAROOK Unavailable Unavailable AFTABWAJOMAR BurciagaOOK Unavailable Unavailable AFTABWAIJOMAROOK Unavailable Unavailable YAMINIIJOMAR FAROOK Unavailable Unavailable AFTABWAIJUANJOSEL FAROOK Unavailable Unavailable AFTABWAIJOMAROOK Unavailable Unavailable AFTABWAIJOMAROOK Unavailable Unavailable AFTABWAIJUANJOSEL PRISCILLAOOK Unavailable Unavailable AFTABWAIISRRAELJOMAR FAROOK Unavailable Unavailable AFTABWAIJOMAROOK Unavailable Unavailable AFTABWAIJOMAROOK Unavailable Unavailable AFTABWAIJOMAROOK Unavailable Unavailable YAMINIIISRRAELJOMAR FAROOK Unavailable Unavailable AFTABWAIJUANJOSEL FAROOK Unavailable Unavailable AFTABWAIJOMAROOK Unavailable Unavailable YAMINIIJOMAROOK Unavailable Unavailable AFTABWAIJUANJOSEL PRISCILLAOOK MD Unavailable Unavailable AFTABWAIJOMAROOK Unavailable Unavailable AFTABWAIJOMAROOK Unavailable Unavailable YAMINIIJOMAROOK Unavailable Unavailable JOMAR SPEARSOOK Unavailable Unavailable Swatsworth, R Sonal PA Unavailable [...] [facility], [facility]KOLB Unavailable Unavailable Detor, M Isac MOTTLER OPERATOR Unavailable Unavailable Detor, M Isac MOTTLER OPERATOR Unavailable Unavailable Detor, M Isac MOTTLER OPERATOR Unavailable Unavailable Detor, M Isac MOTTLER OPERATOR Unavailable Unavailable Detor, M Isac MOTTLER OPERATOR Unavailable Unavailable Detor, M Isac MOTTLER OPERATOR Unavailable Unavailable Detor, M Isac MOTTLER OPERATOR Unavailable Unavailable Detor, M Isac MOTTLER OPERATOR Unavailable Unavailable Detor, M Isac MOTTLER OPERATOR Unavailable Unavailable Detor, M Isac MOTTLER OPERATOR Unavailable Unavailable Detor, M Isac MOTTLER OPERATOR Unavailable Unavailable Detor, M Isac MOTTLER OPERATOR Unavailable Unavailable Detor, M Isac MOTTLER OPERATOR Unavailable Unavailable Detor, M Isac MOTTLER OPERATOR Unavailable Unavailable Detor, M Isac MOTTLER OPERATOR Unavailable Unavailable Detor, M Isac MOTTLER OPERATOR Unavailable Unavailable Detor, M Isac MOTTLER OPERATOR Unavailable Unavailable Detor, M Isac MOTTLER OPERATOR Unavailable Unavailable Detor, M Isac MOTTLER OPERATOR Unavailable Unavailable Detor, M Isac MOTTLER OPERATOR Unavailable Unavailable Detor, M Isac MOTTLER OPERATOR Unavailable Unavailable Detor, M Isac MOTTLER OPERATOR Unavailable Unavailable Detor, M Isac MOTTLER OPERATOR Unavailable Unavailable Detor, M Isac MOTTLER OPERATOR Unavailable Unavailable Detor, M Isac MOTTLER OPERATOR Unavailable Unavailable Detor, M Isac MOTTLER OPERATOR Unavailable Unavailable Detor, M Isac MOTTLER OPERATOR Unavailable Unavailable Detor, M Isac MOTTLER OPERATOR Unavailable Unavailable Detor, M Isac MOTTLER OPERATOR Unavailable Unavailable Detor, M Isac MOTTLER OPERATOR Unavailable Unavailable Detor, M Isac MOTTLER OPERATOR Unavailable Unavailable Detor, M Isac MOTTLER OPERATOR Unavailable Unavailable Detor, M Isac MOTTLER OPERATOR Unavailable Unavailable Detor, M Isac MOTTLER OPERATOR Unavailable Unavailable Detor, M Isac MOTTLER OPERATOR Unavailable Unavailable Detor, M Isac MOTTLER OPERATOR Unavailable Unavailable El-Mabel, Padma Gutiérrez MD Unavailable Unavailable El-Mabel, Padma Gutiérrez MD Unavailable Unavailable El-Mabel, Padma Gutiérrez MD Unavailable Unavailable El-Mabel, Padma Gutiérrez MD Unavailable Unavailable El-Mabel, Pamda Gutiérrez MD Unavailable Unavailable El-Khally, A Ziad [...] Unavailable Unavailable REINDL, TISHA SINGLETON Unavailable Unavailable Otto, V ZARINA PA-C Unavailable Unavailable Miami, V ZARINA PA-C Unavailable Unavailable Miami, V ZARINA PA-C Unavailable Unavailable [place], V ZARINA PA-C Unavailable Unavailable Otto, V ZARINA PA-C Unavailable Unavailable Otto, V ZARINA PA-C Unavailable Unavailable [place], V ZARINA PA-C Unavailable Unavailable Re-disclosure Warning [...] is protected by Article 27-F of the [facility] Public Health law. If you continue you may have access to information: Regarding HIV / AIDS; Provided by facilities licensed or operated by the [facility] Office of Mental Health; or Provided by the [facility] Office for People With Developmental Disabilities. If such information is present, then the following [facility] mandated warning applies: This information has been [...] law may result in a fine or chcf sentence or both. A general authorization for the release of medical or other information is NOT sufficient authorization for further disc losure. Family History Family Member Name Family Member Gender Family Member Status Date o f Status Description Data Source(s) Unknown Male Problem [facility] ([facility] Unknown Unknown Problem [facility] ([facility], ) maternal grandfather/father Unknown Unknown Problem [facility] ([facility] Encounters Encounter Providers Location Date Indications Data Source(s ) Outpatient Attender: TISHA Alejandra/Shena/Cas bansal 04/04/2020 02:00:00 PM EST [facility] ([facility] Outpatient Attender: Oneil GenaoReferrer: Oneil Dennis S1-SJ.PETER 04/02/2020 12:26:00 PM EST [facility] Outpatient Attender: Oneil GenaoReferrer: Oneil Christianson OB-MOB.PAT 04/02/2020 10:16:54 AM EST - 04/02/2020 11:35:56 AM EST [facility] Outpatient Referrer: Oneil Genao MOB-MOB.PAT 04/02/19 09:34:30 AM EST - 04/02/2020 09:34:36 AM EST [facility] Outpatient Attender: ZARINA GUIDRY.PARK-JENNYFERP.PARK 05/2020 12:00:00 AM EST - 03/15/2020 10:50:17 AM EST [facility] Outpatient Referrer: Isac MEZA 03/12/2020 03:49:52 P M [facility] Outpatient Referrer: Isac MEZA 03/12/2020 03:07:41 P M EST [facility] Inpatient Attender: Oneil GenaoAdmitter: Oneil Dennis S1-OR.PERIOP 02/28/2020 08:52:02 AM EST [facility] MOCAM-MOCAM 02/24/2020 03:01:28 PM EST [facility] Outpatient Attender: Marla Marino MDA dmitter: Marla Marino MDReferrer: Loyd Villaseñor MD [email or web address].CVAU 02/24/2020 06:14:00 AM EST - 02/24/2020 12:35:00 PM EST [facility] Patient discharged. Out[place] [address] [facility] [place] [address] 02/20/2020 12:00:00 AM EST eCW1 ([facility]) Unknown [address] [facility] [place] [address] 02/20/2020 12:00:00 AM EST eCW1 ([facility]) [place] [address] [facility] [place] [address] 02/20/2020 12:00:00 AM EST eCW1 ([facility]) [place] [address] [facility] [place] [address] 02/16/2020 12:00:00 AM EST eCW1 ([facility]) Unknown [address] [facility] [place] [address] 02/14/2020 12:00:00 AM EST eCW1 ([facility]) Outpatient Referrer: Loyd Villaseñor MD SJP.PARK-[email or web address].PARK 05/2020 12:00:00 AM EST - 02/13/2020 12:12:14 PM EST [facility] Unknown [address] [facility] [place] [address] 02/13/2020 12:00:00 AM EST eCW1 ([facility]) Outpatient Attender: Loyd Villaseñor MDReferrer: Callie GUIDRY.PARK-SJP.PARK 02/09/2020 12:00:00 AM EST - 02/09/2020 03:04:06 PM EST [facility] Unknown [address] [facility] [place] [address] 02/06/2020 12:00:00 AM EST [facility] [place] [address] [facility] [place] [address] 01/24/2020 12:00:00 AM EST [facility]CW1 [facility] [place] [address] [facility] [place] [address] 01/19/2020 12:00:00 AM EST eCW1 ([facility]) Unknown [address] [facility] [place] [address] 01/19/2020 12:00:00 AM EST eCW1 ([facility]) Unknown [address] [facility] [place] [address] 01/17/2020 12:00:00 AM EST [facility]CW1 [facility] [place] [address] [facility] [place] [address] 01/16/2020 12:00:00 AM EST eCW1 ([facility]) Unknown [address] [facility] [place] [address] 01/03/2020 12:00:00 AM EST eCW1 ([facility]) Outpatient Attender: Marianna Alejandra/Friendship/Magdy/R eindl 12/14/2019 09:15:00 AM EST [facility] ([facility] [place] [address] [facility] [place] [address] 12/09/2019 12:00:00 AM EDT eCW1 ([facility]) Unknown [address] [facility] [place] [address] 12/09/2019 12:00:00 AM EDT eCW1 ([facility]) Outpatient Attender: Marianna Alejandra/Friendship/Magdy/R eindl 08/09/2019 10:15:00 AM EDT [facility] ([facility]) [address] [address] 07/21/2019 12:00:00 AM EDT eCW1 ([facility]) Outpatient Attender: HAYDEN SANCHEZFH LFP 07/19/2019 07:46:28 PM EDT [facility] Outpatient Attender: Marianna Mello RPA Ny/Friendship/Magdy/R eindl 07/13/2019 10:15:00 AM EDT [facility] ([facility]) Outpatient Attender: Marianna Mello RPA Ny/Friendship/Magdy/R eindl 06/20/2019 09:00:00 AM EDT [facility] ([facility]) Outpatient Referrer: BASSAM SPEARS MD 06/06/2019 12:18:00 PM EDT [facility] Outpatient Attender: Marianna Mello RPA Ny/Friendship/Magdy/R eindl 05/09/2019 09:00:00 AM EDT [facility] ([facility] [address] [address] 04/22/2019 12:00:00 AM EDT eCW1 ([facility] [address] [address] 04/20/2019 12:00:00 AM EDT eCW1 ([facility]) [address] [address] 04/15/2019 12:00:00 AM EST eCW1 ([facility]) [address] [address] 04/07/2019 12:00:00 AM EST eCW1 ([facility]) Outpatient Attender: Marianna Mello RPA Ny/Friendship/Magdy/R eindl 03/14/2019 08:00:00 AM EST [facility] ([facility] [address] [address] 03/10/2019 12:00:00 AM EST eCW1 ([facility]) [facility] [address] [place] [address] 02/23/2019 12:00:00 AM EST eCW1 ([facility]) [facility] [address] [place] [address] 02/22/2019 12:00:00 AM EST eCW1 ([facility]) [facility] [address] [facility] [place] [address] 02/11/2019 12:00:00 AM EST eCW1 ([facility]) Outpatient Referrer: BASSAM SPEARS MD 02/10/2019 08:01:00 [...] tablets (20 mg total) by mouth daily [facility] Chlorthalidone 25 MG Oral Tablet chlorthalidone (HYGRO TEN) 25 MG tablet chlorthalidone (HYGROTEN) 25 MG tablet 02/26/2020 12:00:00 AM EST 2 5 mg Oral active Take 1 tablet (25 mg tota l) by mouth daily [facility] normal saline flush 0.9 % injection 3 mL 51469-075-51 02/24/2020 02:00:00 PM EST 3 mL Intravenous active 3 mL , Intravenous, PROTOCOL, First dose on Thu02/24/20 at 1400, Pre-op
flush per protocol, D/C Main IV fluid if appropriate
[facility] Medication administered onsite iopamidol (ISOVUE-370) 76 % [address] 02/24/2020 10:08:03 AM EST active As needed, Starting Thu02/24/20 at 1008, Intra-Procedu re [facility] Medication administered onsite heparin (porcine) injection 02928-564-08 02/24/2020 09:28:46 AM EST active As needed, Starting Thu02/24/20 at 0928, Intra-Procedure [facility] Medication administered onsite 4 ML Verapamil hydrochloride 2.5 MG/ML Injection verap christiane (ISOPTIN) injection verapamil (ISOPTIN) injection 02/24/2020 09:28:36 AM EST active As needed, Starting Thu02/24/20 at 0928, Intra-Procedure [facility] Medication administered onsite lidocaine 1 % injection 4947-7790-48 02/24/2020 09:28:10 AM EST active As needed, Starting Thu02/24/20 at 0928, Intra-Procedure [facility] Medication administered onsite 2 ML Midazolam 1 MG/ML Injection midazolam (VERSED) in jection midazolam (VERSED) injection 02/24/2020 09:21:02 AM EST active As needed, Starting Thu02/24/20 at 0921, Intra-Procedure [facility] Medication administered onsite fentaNYL Citrate (PF) (SUBLIMAZE) injection 9342-8021-63 02/24/2020 09:20:49 AM EST active As neede d, Starting Thu02/24/20 at 0920, Intra-Procedure [facility] Medication administered onsite normal saline flush 0.9 % injection 3 mL [id number] 02/24/2020 07:00:00 AM EST 3 mL Intravenous active 3 mL , Intravenous, Every 8 hours (scheduled), First dose on Thu02/24/20 at 0700, Pre-op
Rapid push positive pressure flushing shall be performed with a 10 cc normal saline syringe to check the PATENCY of a PIV site prior to any infusion therapy initiation unless resistance is met.
[facility] Medication administered onsite Diphenhydramine Hydrochloride 50 MG Oral Capsule diphenhydrAMINE (BENADRYL) capsule 50 mg diphenhydrAMINE (BENADRYL) capsule 50 mg 02/24/2020 07 :00:00 AM EST 50 mg Oral completed 50 mg, Oral, judicial law clerk, Thu02/24/20 at 0700, For 1 dose, Pre-op [facility] Medication administered onsite sodium chloride 0.9% (NS) infusion 8992-1830-77 02/24/2020 07:00:00 AM EST 100 mL/h Intravenous active at 100 m L/hr, 100 mL/hr, Intravenous, Continuous, Starting Thu02/24/20 at 0700, Pre-op
Start two hours prior to scheduled start time
[facility] Medication administered onsite Aspirin 325 MG Oral Tablet aspirin tablet 325 mg aspirin tab let 325 mg 02/24/2020 07:00:00 AM EST 325 mg Oral completed 325 mg, Oral, Once, Thu02/24/20 at 0700, For 1 dose, Pre-op
Give if scheduled for cardiac or peripheral angioplasty/stent or carotid stenting.Administer AM dose prior to procedure if NOT taken at home.Max of 1 dose per day.
[facility] Medication administered onsite normal saline flush 0.9 % injection 3 mL [id number] 02/24/2020 07:00:00 AM EST 3 mL Intravenous active 3 mL , Intravenous, Every 8 hours (scheduled), First dose on Thu02/24/20 at 0700, Pre-op
Rapid push positive pressure flushing shall be performed with a 10 cc normal saline syringe to check the PATENCY of a PIV site prior to any infusion therapy initiation unless resistance is met.
[facility] Medication administered onsite Sucralfate 1000 MG Oral Tablet sucralfate (CARAFATE) 1 g tablet sucralfate (CARAFATE) 1 g tablet 01/18/2020 12:00:00 AM EST active TAKE ONE TABLET BY MOUTH TWICE A DAY ON AN EMPTY STOMACH [facility] Tamsulosin hydrochloride 0.4 MG Oral Capsule tamsulosi n (FLOMAX) 0.4 MG CAPS tamsulosin (FLOMAX) 0.4 MG CAPS 01/18/2020 12:00:00 AM EST 0.4 mg O ral active Take 0.4 mg by mouth daily [facility] Citalopram 40 MG Oral Tablet CITALOPRAM HYDROBROMIDE [...] TABLET BY MOUTH TW ICE A DAY [facility] Citalopram 40 MG Oral Tablet citalopram (CELEXA) 40 MG tablet citalopram (CELEXA) 40 MG tablet 01/18/2020 12:00:00 AM EST 40 mg Oral active Take 40 mg by mouth daily [facility] Chlorthalidone 25 MG Oral Tablet chlorthalidone (HYGRO TEN) 25 MG tablet chlorthalidone (HYGROTEN) 25 MG tablet 01/18/2020 12:00:00 AM EST 2 5 mg Oral aborted Take 25 mg by mouth daily [facility] Sucralfate 1000 MG Oral Tablet [Carafate] Carafate 1 GM Lucia fate 1 GM 01/17/2020 12:00:00 AM EST 1.0 {tablet_on_an_empty_stomach} active Carafate 1 GM eCW1 ([facility]) Sucralfate 1000 MG Oral Tablet [Carafate] Carafate 1 GM Lucia fate 1 GM 01/17/2020 12:00:00 AM EST 1.0 {tablet_on_an_empty_stomach} active Carafate 1 GM eCW1 ([facility]) Sucralfate 1000 MG Oral Tablet [Carafate] Carafate 1 GM Lucia fate 1 GM 01/17/2020 12:00:00 AM EST 1.0 {tablet_on_an_empty_stomach} active Carafate 1 GM eCW1 ([facility]) Sucralfate 1000 MG Oral Tablet [Carafate] Carafate 1 GM Lucia fate 1 GM 01/17/2020 12:00:00 AM EST 1.0 {tablet_on_an_empty_stomach} active Carafate 1 GM eCW1 ([facility]) Mirtazapine 7.5 MG Oral Tablet Mirtazapine 7.5 MG 01/16/2020 12:00: 00 AM EST 2.0 {tablets_at_bedtime} active Mirtaza pine 7.5 MG eCW1 ([facility]) 7.5 mg 01/16/2020 12:00:00 AM EST [...] {tablets_at_bedtime} active Mirtaza pine 7.5 MG eCW1 ([facility]) Mirtazapine 7.5 MG Oral Tablet Mirtazapine 7.5 MG 01/16/2020 12:00: 00 AM EST 2.0 {tablets_at_bedtime} active Mirtaza pine 7.5 MG eCW1 ([facility]) Mirtazapine 7.5 MG Oral Tablet Mirtazapine 7.5 MG 01/16/2020 12:00: 00 AM EST 2.0 {tablets_at_bedtime} active Mirtaza pine 7.5 MG eCW1 ([facility]) Mirtazapine 7.5 MG Oral Tablet mirtazapine (REMERON) 7 .5 MG tablet mirtazapine (REMERON) 7.5 MG tablet 01/16/2020 12:00:00 AM EST active TAKE 2 TABLETS BY MOUTH BEFORE BEDTIME [facility] 7.5 mg 01/16/2020 12:00:00 AM EST tablet 30 TAKE 2 TABLETS BY MOUTH BEFORE BEDTIME TAKE 2 TABLETS BY MOUTH BEFORE BEDTIME SOLD: 01/20/2020 [facility] Tamsulosin hydrochloride 0.4 MG Oral Capsule [Flomax] Flomax 0.4 MG Flomax 0.4 MG 12/09/2019 12:00:00 AM EDT 1.0 {capsule} active Flomax 0.4 MG eCW1 ([facility]) 0.4 mg 12/09/2019 12:00:00 AM EDT capsule 30 TAKE ONE CAPSULE BY MOUTH EVERY DAY TAKE ONE CAPSULE BY MOUTH EVERY DAY SOLD: 01/20/2020 [facility] Tamsulosin hydrochloride 0.4 MG Oral Capsule [Flomax] Flomax 0.4 MG Flomax 0.4 MG 12/09/2019 12:00:00 AM EDT 1.0 {capsule} active Flomax 0.4 MG eCW1 ([facility]) Tamsulosin hydrochloride 0.4 MG Oral Capsule [Flomax] Flomax 0.4 MG Flomax 0.4 MG 12/09/2019 12:00:00 AM EDT 1.0 {capsule} active Flomax 0.4 MG eCW1 ([facility]) Tamsulosin hydrochloride 0.4 MG Oral Capsule [Flomax] Flomax 0.4 MG Flomax 0.4 MG 12/09/2019 12:00:00 AM EDT 1.0 {capsule} active Flomax 0.4 MG eCW1 ([facility]) Tamsulosin hydrochloride 0.4 MG Oral Capsule [Flomax] Flomax 0.4 MG Flomax 0.4 MG 12/09/2019 12:00:00 AM EDT 1.0 {capsule} active Flomax 0.4 MG eCW1 ([facility]) Tamsulosin hydrochloride 0.4 MG Oral Capsule [Flomax] Flomax 0.4 MG Flomax 0.4 MG 12/09/2019 12:00:00 AM EDT 1.0 {capsule} active Flomax 0.4 MG eCW1 ([facility]) 0.4 mg 12/09/2019 12:00:00 AM EDT capsule 30 TAKE ONE CAPSULE BY MOUTH EVERY DAY TAKE ONE CAPSULE BY MOUTH EVERY DAY SOLD: 03/22/2020 [facility] Tamsulosin hydrochloride 0.4 MG Oral Capsule [Flomax] Flomax 0.4 MG Flomax 0.4 MG 12/09/2019 12:00:00 AM EDT 1.0 {capsule} active Flomax 0.4 MG eCW1 ([facility]) Tamsulosin hydrochloride 0.4 MG Oral Capsule [Flomax] Flomax 0.4 MG Flomax 0.4 MG 12/09/2019 12:00:00 AM EDT 1.0 {capsule} active Flomax 0.4 MG eCW1 ([facility]) Tamsulosin hydrochloride 0.4 MG Oral Capsule [Flomax] Flomax 0.4 MG Flomax 0.4 MG 12/09/2019 12:00:00 AM EDT 1.0 {capsule} active Flomax 0.4 MG eCW1 ([facility]) Tamsulosin hydrochloride 0.4 MG Oral Capsule [Flomax] Flomax 0.4 MG Flomax 0.4 MG 12/09/2019 12:00:00 AM EDT 1.0 {capsule} active Flomax 0.4 MG eCW1 ([facility]) Tamsulosin hydrochloride 0.4 MG Oral Capsule [Flomax] Flomax 0.4 MG Flomax 0.4 MG 12/09/2019 12:00:00 AM EDT 1.0 {capsule} active Flomax 0.4 MG eCW1 ([facility]) Nortriptyline 25 MG Oral Capsule nortriptyline (PAMELO R) 25 MG capsule nortriptyline (PAMELOR) 25 MG capsule 12/09/2019 12:00:00 AM EDT active TAKE TWO CAPSULES BY MOUTH EVERY DAY BEFORE BEDTIME [facility] atorvastatin 40 MG Oral Tablet atorvastatin (LIPITOR) 40 MG tablet atorvastatin (LIPITOR) 40 MG tablet 12/09/2019 12:00:00 AM EDT 40 mg Oral aborted Take 40 mg by mouth daily [facility] 0.4 mg 12/09/2019 12:00:00 AM EDT capsule 30 TAKE ONE CAPSULE BY MOUTH EVERY DAY TAKE ONE CAPSULE BY MOUTH EVERY DAY SOLD: 12/12/2019 [facility] Tamsulosin hydrochloride 0.4 MG Oral Capsule [Flomax] Flomax 0.4 MG Flomax 0.4 MG 12/09/2019 12:00:00 AM EDT 1.0 {capsule} active Flomax 0.4 MG eCW1 ([facility]) Tamsulosin hydrochloride 0.4 MG Oral Capsule [Flomax] Flomax 0.4 MG Flomax 0.4 MG 12/09/2019 12:00:00 AM EDT 1.0 {capsule} active Flomax 0.4 MG eCW1 ([facility]) atorvastatin 40 MG Oral Tablet ATORVASTATIN CALCIUM 12/09/2019 1 2:00:00 AM EDT tablet 90 TAKE ONE TABLET BY MOUTH EVERY D AY TAKE ONE TABLET BY MOUTH EVERY DAY SOLD: 12/12/2019 [facility] Tamsulosin hydrochloride 0.4 MG Oral Capsule [Flomax] Flomax 0.4 MG Flomax 0.4 MG 12/09/2019 12:00:00 AM EDT 1.0 {capsule} active Flomax 0.4 MG eCW1 ([facility]) Tamsulosin hydrochloride 0.4 MG Oral Capsule [Flomax] Flomax 0.4 MG Flomax 0.4 MG 12/09/2019 12:00:00 AM EDT 1.0 {capsule} active Flomax 0.4 MG eCW1 ([facility]) 25 mg 12/09/2019 12:00:00 AM EDT capsule 60 TAKE TWO CAPSULES BY MOUTH EVERY DAY BEFORE BEDTIME TAKE TWO CAPSULES BY MOUTH EVERY DAY BEFORE BEDTIME SO LD: 12/12/2019 [facility] atorvastatin 80 MG Oral Tablet atorvastatin (LIPITOR) 80 MG tablet atorvastatin (LIPITOR) 80 MG tablet 10/18/2019 12:00:00 AM EDT active TAKE ONE TABLET BY MOUTH EVERY DAY [facility] 75 mg 10/15/2019 12:00:00 AM EDT tablet [...] TAB. FOR 2 DAYS SOLD: 09/03/2019 [facility] pantoprazole 40 MG Delayed Release Oral Tablet [...] BY MOUTH TWICE A DAY SOLD: 08/10/2019 [facility] 5 mg 04/13/2019 12:00:00 AM EST [...] SOLD: 02/10/2019 [facility] Multiple Vitamin tablet [id number] 02/04/2018 12:00:00 AM EST aborted MULTIPLE VITAMIN TABS [facility] Acetaminophen 325 MG / Hydrocodone Ronnie trate 10 MG Oral Tablet HYDROcodone- acetaminophen (NORCO) 10-325 MG per tablet HYDROcodone-acetaminophen (NORCO) 10- 325 MG per tablet 01/30/2015 12:00:00 AM EST aborted NORCO 10-325 MG TABS [facility] Insurance Providers Payer name Policy type / Coverage type Policy ID Covered alliance party ID Covered alliance party's relationship to mello Policy Mello Plan Information MEDICARE BLUE PPO [id number] SP [id number] [employer] MEDICARE [id number] Kristine [id number] INSURANCE COVID-19 COVID Kristine C OVID [employer] MEDICARE Medicare [id number] [employer] B [id number] S VYM [id number] MEDICARE BLUE PPO 306 [id number] SP [id number] MEDICARE [id number] SP [id number] MEDICARE [id number] SP [id number] [place] 302/307 [id number] SP [id number] [place] [id number] SP [id number] [facility] [id number] S [id number] [facility] COMM[facility] [id number] SP [id number] SALAS MEDICARE [id number] SP [id number] [facility] O [id number] S [id number] [facility] COMMUNITY [facility] [id number] SP [id number] ANSI-Medicaid [id number] ANSI-Medicaid [id number] ANSI-Medicaid [id number] ANSI-Medicaid [id number] ANSI-Medicaid [id number] ANSI-Medicaid [id number] [facility] COMMUNITY PLAN [facility] [id number] SP [id number] [facility] I [id number] Self [id number] [facility] COMMUNTY PLAN [id number] ANSI-Medicaid [id number] ANSI-Medicaid [id number] ANSI-Medicaid [id number] ANSI-Medicaid [id number] ANSI-Medicaid [id number] ANSI-Medicaid [id number] ANSI-Medicaid [id number] ANSI-Medicaid [id number] ANSI-Medicaid [id number] ANSI-Medicaid [id number] ANSI-Medicaid [id number] ANSI-Medicaid [id number] [facility] [id number] Self [id number] [employer] [facility] Maintenance Organization ([facility]) [id number] Self [id number] ANSI-Medicaid [id number] ANSI-Medicaid [id number] ANSI-Medicaid [id number] ANSI-Medicaid [id number] ANSI-Medicaid [id number] ANSI-Medicaid [id number] ANSI-Medicaid [id number] ANSI-Medicaid [id number] ANSI-Medicaid [id number] ANSI-Medicaid [id number] ANSI-Medicaid [id number] ANSI-Medicaid [id number] ANSI-Medicaid [id number] ANSI-Medicaid [id number] ANSI-Medicaid [id number] ANSI-Medicaid [id number] ANSI-Medicaid [id number] ANSI-Medicaid [id number] ANSI-Medicaid [id number] ANSI-Medicaid [id number] ANSI-Medicaid [id number] ANSI-Medicaid [id number] ANSI-Medicaid [id number] ANSI-Medicaid [id number] [facility] [id number] ANSI-Medicaid [id number] ANSI-Medicaid [id number] ANSI-Medicaid [id number] ANSI-Medicaid [id number] ANSI-Medicaid [id number] ANSI-Medicaid [id number] ANSI-Medicaid [id number] ANSI-Medicaid [id number] ANSI-Medicaid [id number] ANSI-Medicaid [id number] ANSI-Medicaid [id number] ANSI-Medicaid [id number] [place] [id number] SP [id number] MEDICAID [id number] SP [id number] UNHC COMMUNITY PLAN MCDHMO [id number] SP [id number] MEDICAID [id number] SP [id number] MEDICAID M [id number] S [id number] MEDICAID [id number] SP [id number] [facility] Health Maintenance Organization (HMO) [id number] Self [id number] MEDICAID M [id number] S [id number] [employer] COMMUNITY PLAN MCDHMO UNAVAILABLE SP UNAVAILABLE [place] [id number] SP [id number] [facility] [facility] Amware [id number] Self [id number] [place] UNAVAILABLE SP U NAVAILABLE SALAS [id number] SP [id number] SALAS [id number] SP [id number] 500 [employer] [facility] Amware [id number] Self [id number] [employer] [facility] Amware [id number] Self [id number] SALAS CARE MA O [id number] S [id number] UNHC COMMUNITY PLAN MCDHMO [id number] SP [id number] MEDICAID M [id number] S [id number] [facility] Health Maintenance Organization (HMO) Self [facility] I [id number] Self [id number] OTHER 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 O [id number] S [id number] MEDICAID M [id number] Self [id number] SELF PAY UNAVAILABLE SP UNAVAILA BLE TRAVELERS W/C [id number] SP [id number] TRAVELERS W/C [id number] SP [id number] Problems, Conditions, and Diagnoses Code Display Name Description Problem Type Effective Dates Data Source(s) I35.1 Nonrheumatic aortic valve insufficiency Nonrheumatic aortic valve insufficiency [id number] 02/28/2020 12:00:00 AM [facility] I35.0 Aortic valve stenosis Aortic valve stenosis [id number] 02/17/2020 12:00:00 AM [facility] K64.4 [id number] External hemorrhoids Problem 01/16/2020 12:0 0:00 AM EST [facility] ([facility]) N40.1 [id number] Benign prostatic hyp erplasia with lower urinary tract symptoms Problem 12/09/2019 12:00:00 AM EDT [facility] ([facility]) E66.09 [id number] Other obesity due to excess calories Prob jessa 07/21/2019 12:00:00 AM EDT eC ([facility]) Z68.30 [id number] Body mass index (BMI) 30.0-30.9, adult Pr oblem 07/21/2019 12:00:00 AM EDT eCW1 ([facility]) Z13.220 [id number] Lipid screening Problem 07/21/2019 12:00:00 AM EDT eC ([facility]) I10 Essential hypertension Essential hypertension [id number] 03/29/2019 12:00:00 AM [facility] I35.1 Nonrheumatic aortic (valve) insufficienc y Nonrheumatic aortic (valve) insufficienc Diagnosis 04/04/2020 03:52:47 PM [facility] U07.1 COVID-19 COVID-19 Diagnosis 04/02/2020 09:34:30 AM [facility] E78.5 Hyperlipidemia, unspecified Hyperlipidemia, unspecifie d Diagnosis 03/15/2020 09:31:23 AM EST [facility] I35.0 Nonrheumatic aortic (valve) stenosis Nonrheumati c aortic (valve) stenosis Diagnosis 03/15/2020 09:31:[address] [facility] I73.9 Peripheral vascular disease, unspecified Peripheral vascular disease, unspecified Diagnosis 03/15/2020 09:31:23 AM EST [facility] I10 Essential (primary) hypertension Essential (primary) h ypertension Diagnosis 03/15/2020 09:31:23 AM EST [facility] F17.210 Nicotine dependence, cigarettes, uncompl icated Nicotine dependence, cigarettes, uncompl Diagnosis 03/15/2020 09:31:23 AM EST [facility] Surgeries/Procedures Procedure Description Date Indications Data Source(s) ECG ROUTINE ECG W/LEAST 12 LDS W/I&R POCT AMB EKG Routine 03/15/2020 11:12 AM EST Aortic valve stenosis, etiology of cardiac valve disease unspecified 03/15/2020 04:12:00 PM EST Aortic valve stenosis, etiology of cardi ac valve disease unspecified [facility] Aortic valve stenosis, etiology of cardi ac [...] stenosis, etiology of cardiac valve disease unspecified [facility] Cigarette smoker Essential hypertension Hyperlipidemia, unspecified hyperlipidem ia type Peripheral vascular disease Aortic valve stenosis, etiology of cardi ac valve disease unspecified ECG ROUTINE ECG W/LEAST 12 LDS TRCG ONLY W/O I&R ECG 12-LEAD Routine 02/24/2020 6:33 AM EST 02/24/2020 11:33:08 AM EST [facility] BLOOD COUNT COMPLETE AUTOMATED CBC STAT 02/24/2020 6:31 A M EST 02/24/2020 11:31:00 AM EST [facility] BASIC METABOLIC PANEL CALCIUM TOTAL BASIC METABOLIC PANEL STAT 02/24/2020 6:31 AM EST 02/24/2020 11:31:00 AM EST [facility] ECG ROUTINE ECG W/LEAST 12 LDS W/I&R POCT AMB EKG Routine 02/09/2020 2:34 PM EST Aortic valve stenosis, etiology of cardiac valve disease unspecified 02/09/2020 07:34:00 PM EST Aortic valve stenosis, etiology of cardi ac valve disease unspecified [facility] Aortic valve stenosis, etiology of cardi ac valve disease unspecified Arterial Infusion Thrombolysis Other Than Carotid 05/02/2019 12:00:00 AM EDT [facility] ([facility], ) REVSC OPN/PRQ FEM/POP W/STNT/ANGIOP SM VSL 05/02/2019 12:00:00 AM EDT [facility] ([facility], ) REVSC OPN/PRQ TIB/DANNI W/ANGIOPLASTY UNI 05/02/2019 12 :00:00 AM EDT [facility] ([facility], ) Angiography Extremity Unilateral 05/02/2019 12:00:00 A M EDT [facility] ([facility], ) Moderate Sedation Services; Same Phys Intl 15 Mins; PT >= 5 Years 05/02/2019 12:00:00 AM EDT [facility] ([facility], ) Office Visit, Est Pt., Level 3 PC 04/07/2019 12:00:00 AM EST eCW1 ([facility]) Office Visit, Est Pt., Level 2 FC 04/07/2019 12:00:00 AM EST eCW1 ([facility]) Results ID Date Data Source [id number] 04/02/2020 01:01:10 PM EST [facility] Name Value Range Interpretation Code Description Data Debbie rce(s) Supporting Document(s) POC SOURCE [facility] PUNCTURE SITE [facility] O2 THERAPY [facility] PAUL TEST [facility] POC PH 7.46 pH (7.35-7.45) H [facility] POC PCO2 35.4 MMHG (32.0-48.0) [facility] POC PO2 81 MMHG (83-108) L [facility] POC SAT O2 97 % (95-99) [facility] POC BASE EXCESS 2 MMOL/L (0-3) [facility] POC HCO3 25.3 MMOL/L (21.0-29.0) [facility] POC TOTAL CO2 26 MMOL/L (23.0-32.0) [facility] PERFORMED BY [facility] CLINICAL STAFF ID Date Data Source [id number] 04/02/2020 11:55:00 AM EST [facility] ROUTINE PA and LATCLINICAL [...] rce(s) Supporting Document(s) ID Date Data Source [id number] 04/02/2020 11:44:00 AM EST [facility]TR ASOUND CAROTID DUPLEXCLINICAL HISTORY: Pretesting. Replacement [...] rce(s) Supporting Document(s) ID Date Data Source [id number] 04/02/2020 11:35:15 AM EST [facility] Name Value Range Interpretation Code Description Data Debbie rce(s) Supporting Document(s) EKG [facility] AQMLAp8aYeWXAmPdh3XfOqVgPAUtTJ1cnzy6E8L3zNAvJ7VfxYXvu0wpA1WwO1IeVCPpVPQBHQ3HlLOf jb2 [file] iQ5L+zgalW0I+ubppF9H+wqazN9Z+umqtF7W+vixcq7R+lfzeo1I+lwwte7U+htzfX5M+sayiK9T+vgw iU5M+dxjuL7Xgv/rR3YVQ8gLuLefFyuIbYgoiahFsP kffybRoUkfjybRpUkfnybRqUkfrybRrUkfvybRsUn9+0VEPT++HaJgog4tZoZ7ra5+LuTOhh8cSuUSva 4+OnXHux6sEgLlzl8+AxVlnw5rPbFixz1+FfVtbf0cVcP2vj7+FzYKpa3nK2LLxw1+F7TYbd5aN2Snhx 5+Y7Cdjy4vZ5Ejyw5+C1Pitl2lX0N6ku3+N0UNsV6h UKILlD4+PUQLwC0eDCQbdB7+OJRhxV2tYPGiaT5+MHInlX6jVOX5aN0+UKY/lD/+UKY/lD/+UKY/lD/+ UKY/lD/+UKY/lD/+UKY/lD/+UKY/lD/+UKY/lD/+UKY/lD/+UKY/lD/+UKY/lD/+UKY/lD/+UKY/lD/+ UKY/lD/+UKY/lD/+UKY/lL/rO2TP4qkPN7Fk/t0aTV ik+egZlmm+8wWswlp6PlDDil1sJPQj1rqiN0XxLp9Avp+UP/5Qpj+UP/5Qpj+UP/5Qpj+UP/5Qpj+UP/ 5Qpj+UP/5Qpj+UP/5Qpj+UP/5Qpj+UP/5Qpj+UP/5Qpj+UP/5Qpj+UP/5Qpj+UP/5Qpj+UP/5Qpj+UP/ 5Qpj+UP/5Qpj+UP/5Qpj+UP/5Qpj+UP/5Qpj+UP/5Q pj+UP/5Qpj+UP/5Qpj+UP/5Qpj+UP/5Qpj+UP/5Qpj+UP/5Qpj+UP/5Qpj+UP/5Qpj+UP/5Qpj+UP/5Q pj+UP/5Qpj+UP/5Qpj+UP/5Qpj+UP/5Q/UXDl/LN50YBK6AWAb2iKPfnuL4b8Z5ItJQ0sgOQ2MCIP6AQ Ak57HuD+jhyq8xIeQ1X+rhmY2uAgX4X+hnsI7jTtJ2 E+jizK3eLiW8X+aqnZ8cHgL3L+hiaF5rOmY7N+aquX1mYzO5B+iluK5wDtW9B+xsqN9wJpS0L+lfo06t OoT6M+yrr00lAiE8H+haz36dNyS3S+NCM23gWpL5H+bom05kQvR7g+szd74sCcX1q+fkn27bNbZ9c+nf i85tUzK1l+djuG2bHkj1J+g/qI2cWol8T+g/oM6jOo z6A+g/mD2dQzu5K+g/kD8kRzp2R+k/wY5fJsd1R+k/uA7zHsn6Y+k/oN0wNda7C+k/en6lWge2M+i/os 1iWue9M+i/zw9jRht2J+i/jx1vNqg8J+i/xppzdkxw1oONywYh2GKfiPseIlbjXelELtNYdVN+sT5tYn YW5EhL1xQM9+Cy6Y2HqWiqI7Z0N/HUICHx2E9PvJfa T0S0G/0SyC5hI2W0J4cJ5U1D7SxLAL5DHBsREF8MYKzRLN6OMMyVVO1XZXuAGV2GFBzVGC3MNKpTZG9H XLjJdN9NyCzJjR0KvUxXuX7ZyZnTwE8DeKsJuL7RtEhNgR7NyWfW6W5H7RoP6I8W7VmW8O8A5GvMSR9S DCdUEP2PWEsCPC2BINjIDX5PAYyNAM1HCRvQKY3UZO tCBM5DIDlMaL7EuPqRyA4AkUsPkV0YoZwOrV0DxQvPjD5ItGxZxS22umakC3AOajqs/m7Fqz8cifX/N1 L4mhBsESLC3SeTiSsxZfwiTrfVakiKbizKPuPpvasPabkFzPBMjA70OYJ1O0DHIVSP6L7WDTB3Q07gPD A0+N+NTAUyM+ZaCZgM9GXJEpBofOvE7lb9K/vfywm5 9PPz/w2DtbMQOWp8MBR/nYSKKRpI+VJJpJ+mwWyoSdp5OzottsI8yP7si9afkSPmwWhUVjYiTQVjE+Accounts Payable Accountant [file] JYI5ZdYQJWOIwifamUoug9S32whSHUGTEf1QIRLI9e MfkkyvItaB1s3no8O9UXDVoIwGQGxQYRXsujodX+4OwHzq/R2RO9/AJr2DtQaxpQgNUXqgwyivbDcRkz Ebva9x5P8NHnL5xGjHuKrkwDcSfrWyQX1BRbfrDYH+kneutglpy4Tt9k5nTND2beRJQMVThRuctdcRC1 LPHz4JmM5bsDmdi+edrXmij57sqBwXCuLNe3QpRbTZ axZMo+0FqbdlLGZUC8FJemQkv8R8ageGvyQHJAalJjX72kNRQhNDMlOZDxN32ppiWwUS3lsRXXihtrWW IxdTiZN1qB+dv8dNQYEe1dJiOoKWEYPqMCchDA87Ume8i3kOq5iAoZseMDOgmIXNHLCgn4BcC8EwfctM zEHx9QuxWBzKRlAJp8C5dxvqsbgQKAco0YHYYV9GIX vlPkN0AjXK0qu3DwrlV19wgYu6bVj5eO9tEPWPC+jR8VxX6QXWrOuVP2tCU8cufSBLB+30E2w7v6q9SQ IafOVWXSSjCyq8kqNhOpVAnsihrbc+XCdSe2EXaaaD3crwpRbP22nrW33cQZTdgFfNBHjb0xghKiVJxA HsfHLDYaPJFDrRHWQZYuFQAdhigWR2ba5SEjMzmoJW Ugln7hHDxLStPLVMC9vJzYQZ/9X//X//yLfZYIo/2f/+ff//F/t//z3//8v//+1/8oL/bg6CVp5T90O+ Xl/sPh/PJTli+zjJrFhRzmSeuNmv4ryPCbUglIzIDzr41g0MY5Lku5tBA5qS2LfRPpDo+0D8vFyjacAx 3/MÓNICA/9Gg7Xv24seMA1T3fF/wKTJZy36R94cW+Ul/tv 2Pdiq90E/Bsho2w/dgl2XCn+qcS/36OcI+F3hsIU6qYRzlquToLch4lqKWKZU0QHjbx8qvw2jEGdkk7t 4tn8lrhD9nk34cCrFE492if0e/106rajYW9q7SuOQB7ei5UmrGtuL5V9bs1WTgr7Tv+qn5/e+3ufqMOf 2vsb+jJh2pf8gtSCgo3zpc/3udEK//7GlXTu/8N/amharic [file] CwNwn1GXjkOYzhRKAFJn== ID Date Data Source [id number] 04/02/2020 11:28:30 AM EST [facility] NT INFORMATIONPatient MRN Name Date of Age Gend*PT [id number] Hiral Shi 1960 60 years M OPPT Location Admission Date/Time Visit ID Attending Provider --- --- --- Oneil Genao MD([id number]) EPI ID CSN Admitting Provider [id number] ---HISTORY PHYSICALName: Hiral Shi : 1960 Sex: [...] by his PCP.Subsequently he was referred to bilingual account manager Dr. Villaseñor. On 02/13/2020 heunderwent TTE which [...] moderate (CAROLA 1.3cm2, mean gradient 23mmHg) - [facility] Echocardiogram 01/08/2016 Normal LV size with mild [...] (25 mg total) by mouthdaily 02/26/20 Marla El-Khmarshall, MDcitalopram (CELEXA) 40 MG tablet Take 40 [...] Take 15 mg by mouth nightly as vwarcn16/7/20 Historical Provider, MDnortriptyline (PAMELOR) 25 MG capsule Take 50 mg by mouth nightly as xqkabt72/30/20 Historical Provider, MDpantoprazole (PROTONIX) 40 MG tablet [...] warm and dry.HEENT: He is normocephalic, atraumatic. [place] conjunctivae. Anicteric sclerae.Pupils are equal, round, reactive [...] hepatosplenomegaly. Negative CVAT.GENITAL/RECTAL: Deferred.MUSCLE/SKELETAL: Strength is 5/5. Audio Video Repairer are equal. Spinal cord stimulatorintact to lower [...] parts of this document, were dictated using FullContact software. A reasonable attempt at proofreading has beenmade to minimize errors. Please call with any questions or corrections. Name Value Range Interpretation Code Description Data Debbie hernan(s) Supporting Document(s) ID Date Data Source [id number] 04/02/2020 10:01:02 PM EST [facility] SPEC EXP DATE 04/07/2020ATI ENT ABO/Rh A POSITIVEANTIBODY SCREEN NEGATIVETESTING SITE PERFORMED AT [address] [place] [id number] Name Value Range Interpretation Code Description Data Debbie rce(s) Supporting Document(s) TYPE AND SCREEN [facility] ID Date Data Source [id number] 04/02/2020 07:01:34 PM EST [facility] Name Value Range Interpretation Code Description Data Debbie rce(s) Supporting Document(s) HEMOGLOBIN A1C @ 5.9 % (4.0-6.0) [facility] Performed using Siemens [place] immunoassa y.Care must be taken when interpreting KsQ3gfombvxf in patients with a hemoglobin variantor decreased erythrocyte lifespan. Values 5.7 - 6.4% suggest prediabetes.Values >=6.5% are diagnostic for diabetes.REFERENCE: DIABETES CARE 2018: 41(S13-S27). EST AVERAGE GLUCOSE 123 mg/dL [facility] ID Date Data Source [id number] 04/02/2020 06:39:07 PM EST [facility] Name Value Range Interpretation Code Description Data Debbie rce(s) Supporting Document(s) ROOM TEMP AB SCREEN [facility] ROOM TEMP AB SCREEN NEGATIVE ID Date Data Source [id number] 04/02/2020 06:16:26 PM EST [facility] Name Value Range Interpretation Code Description Data Debbie rce(s) Supporting Document(s) NT PRO BNP 163 pg/mL (0-125) H [facility] ID Date Data Source [id number] 04/02/2020 06:16:26 PM EST [facility] Name Value Range Interpretation Code Description Data Debbie rce(s) Supporting Document(s) SODIUM 134 mmol/L (136-145) L [facility] POTASSIUM 4.8 mmol/L (3.6-5.2) [facility] CHLORIDE 97 mmol/L (100-108) L [facility] CO2 29 mmol/L (22-31) [facility] ANION GAP 8 mmol/L (7-16) [facility] UREA NITROGEN 12 mg/dL (7-24) [facility] CREATININE 0.89 mg/dL (0.80-1.30) [facility] BUN/CREAT RATIO 13.5 RATIO (10.0-20.0) [facility] GLUCOSE 99 mg/dL (70-99) [facility] CALCIUM 9.5 mg/dL (8.4-10.2) [facility] TOTAL PROTEIN 7.1 g/dL (6.4-8.2) [facility] ALBUMIN 4.2 g/dL (3.2-4.5) [facility] GLOBULIN 2.9 g/dL (2.7-4.3) [facility] ALB/GLOB RATIO 1.4 RATIO [facility] ALKALINE PHOSPHATASE 139 U/L (45-117) H [facility] BILIRUBIN,TOTAL 0.4 mg/dL (0.0-1.0) [facility] PLEASE NOTE:Total bilirubin results may be falselyelevated in patients taking Eltrombopag. AST (SGOT) 20 U/L (11-39) [facility] ALT (SGPT) 27 U/L (12-78) [facility] GFR >60 ml/min/1.73m2 (>59) [facility] GFR ( AMER) >60 ml/min/1.73m2 (>59) [facility] GFR INTERPRETATION [facility] --NORMAL KIDNEY FUNCTION OR MILD DISEASE - GFR >OR= 60CHRONIC KIDNEY DISEASE - GFR 15 - 59RENAL FAILURE - GFR <15 Est. GFR calculation based on the MDRDstudy equation, which assumes a steadystate for creatinine. Est. GFR should notbe used for medication dosing. ID Date Data Source [id number] 04/02/2020 04:34:24 PM EST [facility] Name Value Range Interpretation Code Description Data Debbie rce(s) Supporting Document(s) WBC 6.1 10*3/uL (4.1-11.0) [facility] RBC 3.38 10*6/uL (4.60-6.10) L [facility] HGB 8.3 g/dL (13.5-18.0) L [facility] HCT 25.5 % (41.0-53.0) L [facility] MCV 75.5 fL (80.0-95.0) L [facility] MCH 24.5 pg (27.0-32.0) L [facility] MCHC 32.5 g/dL (32.0-36.0) [facility] RDW 16.8 % (10.5-14.5) H [facility] PLT 513 10*3/uL (150-450) H [facility] MPV 6.5 fL (7.1-10.7) L [facility] NEUT % 72.2 % (35.0-75.0) [facility] LYMPH % 16.7 % (16.0-52.0) [facility] MONO % 9.8 % (0.0-8.0) H [facility] EOS % 0.4 % (0.0-5.0) [facility] BASO % 0.9 % (0.0-4.0) [facility] NEUT # 4.4 10*3/uL (1.8-7.7) [facility] LYMPH # 1.0 10*3/uL (1.2-4.8) L [facility] MONO # 0.6 10*3/uL (0.0-0.8) [facility] Eosinophils [#/volume] in Blood by Automated count 0.0 10*3/uL (0.0-0 .5) [facility] BASO # 0.1 10*3/uL (0.0-0.2) [facility] ID Date Data Source [id number] 04/02/2020 04:28:10 PM EST [facility] Name Value Range Interpretation Code Description Data Debbie rce(s) Supporting Document(s) PT 10.4 s (9.2-11.9) [facility] INR 1.00 [facility] SUGGESTED THERAPEUTIC RANGES USING INR F ORSTABILIZED ANTICOAGULATED PATIENTS:STANDARD DOSE THERAPY INR 2.0-3.0 DVT, PE, PREVENT DVT OR EMBOLISMHIGH DOSE THERAPY INR 2.5-3.5 PREVENT EMBOLISM FROM MECHANICAL HEART VALVE ID Date Data Source [id number] 04/02/2020 04:28:10 PM EST [facility] Name Value Range Interpretation Code Description Data Debbie rce(s) Supporting Document(s) APTT 21.5 s (22.0-34.3) L [facility] ID Date Data Source [id number] 04/02/2020 07:35:56 PM EST [facility] Name Value Range Interpretation Code Description Data Debbie rce(s) Supporting Document(s) COLOR [facility] APPEARANCE [facility] SPEC GRAV URINE 1.008 (1.003-1.030) [facility] PH URINE 7.0 (5.0-7.5) [facility] LEUK ESTERASE (NEG) [facility] NITRITE URINE (NEG) [facility] PROTEIN URINE (NEG) [facility] GLUCOSE URINE (NEG) [facility] KETONE URINE (NEG) [facility] UROBILINOGEN 0.2 mg/dL (0-1.0) [facility] BILIRUBIN URINE (NEG) [facility] BLOOD/HGB URINE (NEG) [facility] ID Date Data Source [id number] 04/03/2020 03:16:07 PM EST [facility] SPECIMEN DESCRIPTION MIDSTREAM UR INE,CLEAN CATCHCULTURE RESULTS NO GROWTHREPORT STATUS FINAL 04/03/2020 Name Value Range Interpretation Code Description Data Debbie rce(s) Supporting Document(s) ID Date Data Source [id number] 04/03/2020 11:20:01 AM EST [facility] Name Value Range Interpretation Code Description Data Debbie rce(s) Supporting Document(s) SPECIMEN DESCRIPTION [facility] STAPH SCREEN RESULTS (ONEGSA) [facility] COMMENT [facility] GENE TO DETECT STAPH AUREUS. (2) RT-P CR WAS PERFORMED FOR THE mecA AND [employer] GENES TO DETECT METHICILLIN RESISTANCE IN STAPH AUREUS. ID Date Data Source [id number] 04/03/2020 06:08:42 PM EST [facility] Name Value Range Interpretation Code Description Data Debbie rce(s) Supporting Document(s) SARS-COV-2 RAD [facility] Not DetectedReference range: Not Detecte d This nucleic acid amplification test was developed and its performance characteristics determined by [employer]. Nucleic acid amplification tests include RT-PCR and [...] detected) result in this assay. Performed At: [facility] [address] [place], [place] [id number] Markie Rouse PhD Ph:[phone] ID Date Data Source [id number] 02/24/2020 03:01:28 PM EST [facility]FORMATION[facility] Name Date of Age Gend*PT [id number] Hiral Shi 1960 59 years M ---PT Location Admission Date/Time Visit ID Attending Provider --- --- --- --- EPI ID CSN Admitting Provider [id number] ---Addended by: ISAC JONES on: 02/24/2020 03:01 PM Modules accepted: Orders, SmartSet Name Value Range Interpretation Code Description Data Debbie rce(s) Supporting Document(s) ID Date Data Source [id number] 02/24/2020 02:49:19 PM EST [facility]FORMATIONPatient MRN Name Date of Age Gend*PT [id number] Hiral Shi 1960 59 years M HOPPT Location Admission Date/Time Visit ID Attending [id number] 02/24/20 0614 --- --- EPI ID CSN Admitting Provider [id number] Marla Marino MD([id number])Cardiothoracic Surgery ConsultMichaeelvie StallworthN: [id number] for consult: aortic valve stenosisAssessment/Plan:Active Problems: Peripheral [...] moderate (CAROLA 1.3cm2, mean gradient 23mmHg) - [facility] Echocardiogram 01/08/2016 Normal LV size with mild [...] on phone: None Gets together: None Attends church service: None Active member of club or [...] rce(s) Supporting Document(s) ID Date Data Source [id number] 02/24/2020 10:13:33 AM EST [facility] Name Value Range Interpretation Code Description Data [facility] rce(s) Supporting Document(s) &PDF [facility] ZEMLGh4lKjMFWaWx08/BFUfhWQBti8LgILhsSMe4MFixPFJxF8DiyPmpBLcZD3WZFpfGFSZLTNIMXY9n oRX [file] ICAgICAgICAgICAgICAgICAgICAgICAgICAgICAgIC SiDTNnFERlFTFxOOAoRXZaKQBkUFLwCZDzHH7NZTWmFGMkRIKbQJKpDPFjXIMmHHJhFCIrZWDuDPJpJY AgICAgICAgICAgICAgICAgICAgICAgICAgICAgICAgICAgICAgICAgICAgICAgICAgICAgICAgICAgIC VpVIWiKULeJQ7OOQSjJHIdLHFpSYXrMGUiIHIqAYHw ICAgICAgICAgICAgICAgICAgICAgICAgICAgICAgICAgICAgICAgICAgICAgICAgICAgICAgICAgICAg ZSTcWIPuJOJjSSKpVAHoMCGtUU4ZVMRfNJLxCUQjBNBvTIRhSEAiUYFsRQEhVJPcFNGgVZRfVRVtBPCw ICAgICAgICAgICAgICAgICAgICAgICAgICAgICAgIC EcFXLnTMRzQSXwODQbZLNiMXQqUVRbLLBqWCLeMC5SDAIzKNUhFDYjNXVoNTLnOWXuGTRyYRNxKSSmOT AgICAgICAgICAgICAgICAgICAgICAgICAgICAgICAgICAgICAgICAgICAgICAgICAgICAgICAgICAgIC BgWHQvSMSgXZAnPE6KPULnLADvBCFxENGdFGUpMQWt ICAgICAgICAgICAgICAgICAgICAgICAgICAgICAgICAgICAgICAgICAgICAgICAgICAgICAgICAgICAg ITUyJFFeIGPjWQAvWEHqFOUjFKTiWW2HDKNkRCSeFTCeTYAxBYExNJKoOAKrESSgRGNoSBJhMOKcGJYm ICAgICAgICAgICAgICAgICAgICAgICAgICAgICAgIC OkICFrDFLmSQEiUBRwTNNoLVTbAPQmTRKwKFMrJAObQN1REBGnHBGfKEKxERXiAOIhMAEyPYXkQJXsWU AgICAgICAgICAgICAgICAgICAgICAgICAgICAgICAgICAgICAgICAgICAgICAgICAgICAgICAgICAgIC WfVGTcBSYeRNJyCQRaUR0AKTLtLYZvBYYbZWEyPRJd ICAgICAgICAgICAgICAgICAgICAgICAgICAgICAgICAgICAgICAgICAgICAgICAgICAgICAgICAgICAg BZHsLZOdFTEjONXyJHNlDTInEZAoUWStCL1QYNNrIQEsHSMaWKEyWBNwCKZbOHSmDLKlGSJgYAIuIGXr ICAgICAgICAgICAgICAgICAgICAgICAgICAgICAgIC DaOOHzOASgEWXgSPCaWEDuGDLtCCGfSBDdGZAyQZDbSQQzWZ5OAN52gUXrn6S3FDHbFO9xpqi/Pg0KDQ kcitApvANhJK6UYyZwVA5iil2YDrGjVR5vve9YHUuMOoSlK4D8hDQeRQMlUHIPGxVvQ10jRJcyJr99BM sbEGPrIbTkTJa1Tf7QSgUiA1qvRWKyUvS0PIEnNyP8 KMReKmY0YEUzAgErWQFdHJBcCG0YAUTdJ989soLtTL9JAd3DLuVjIR4ixr4XEqAuAUNlPpuUBqt4WEyq YE4FkCFmqUOlQhKyLUHMOtZzX4xke9TsUesgELVPUPdhZN4Lv8WsxBJdTLr+Yq0KUM7lt3XtYGrwStOd RH2ftr7XHRvQSlZnG0FwuSzxBCusbWkwdtLoNA2QCD AqUYGwgXZtRXafFVBZGY8JIRruYEM4VokweyVsxQXmIOlrUN6IZGPufqJjNqPyWKDYOVy+Wa8HYZ9dm4 XzBFbqBDXbUX6daw5KFDeCPvCdH9G6uZEiT7C3SNvnWq3BDPGyGEAgYdCoADGYZYbkLR3MCZ6dqmX3IZ 0VtMPaEJHtRIAxrJGiFHq5X33xtDDtVStaGK4GBGH+ Krysta+Lv8BUIPmBOXdIAVwBnSxXDJJPgUxN8MoC3PDk8QpY6AjVT12yDapsgOxHOiqOT3ESV5bOFErKBGJ GJ1YsFKfnW0hvzRaOiGkXANJQsWeW74jxVXgWXQqQIW0ZHBvEi6COPFwK6YmpaFslLpmvrCbXXMcRJOO VN6CJMbsdqXbxNAaySciCR78eQqqCR9JKf5CAcBlDV 2pkp9LtCVaIp3BZTFqMQ3AGTHbWVNiRPZwBXI9XKEkJyMjVHgfSGOlKTXrZRP6ZVTcUVWpIF8AQhQoID DaZXC5DNAhVCXsHOKmwq7SZJYfVXU3XXvlXXIcGGDsHUAnCIpiSSGjRLTsBLlrRULtRURqTM1AYsMzRN TdAXAdZnaiSFNvWBUfyz3LHRXjSLBnGsJlINMmSPVd WANuUCuwXPZmOVR9HQafBRVsKRSqEB2PKwSjUPPjEVYuMiGzMIQhVIUasn4KEZZdCOEjLbc8GcFaBBLn MCTvQLmnIAGhEHD5FWRcESMgMQJgDU1WObYpTQOiGZndTogvDKVoQBHvwb4HEOYzXATqMIUtUMSoXYUn HYUnTBiwDQNeEOK6Ngn1MIPoEXAwBX1LKwSsHPHxVH s9QNUaVRKsIOAemj4QJUVbMDQiHVe4VAVgTXYxAFMxWZizAGZtAUIoTaBmERIjAMFeDD0HNkWbZXVsJN F1SkKsOSAcFGCmtc3YXPHyRXLpWYQnNeIjDZWpHMUnAHyqCZYuLHY1AKL3ODUoTNUuEG4JJkPbCUTtEF Y3AvYlXUIsZKIkci5KTKNeTFMzNqC3RUTzAHCqARHw XDyuIZPwLCO1SRYcOPMyYZUiSW5YZxSwTSNpBxbpQJWiENMpOANlul0KTZCrWSG8Qvm1JsFaHNBePKVi TSjcEAPbHOI3XrbqOAFnGKVzDU1XAzDzHQFoFYs6XaflHGVnCJBjee3KBOAzUDF1UKo4RPZyPCTbLZHo SEkpNLOnAQE9IJk8PEYoKCXdJN3XUoHxSHkjNSLMAh y6VQhnR6h7YCObUQ5TM5Ojj2IuJdvgKZTBRSzcPW0bgfJjEOTtPc0OT0rEBgy0W7L6KgU0MFG5LJokUY q4LSP1PsnyWYUcJPQvY7J7FX6eOIj2NBywKjgoZtQzOcV6PYo1QZF8AWNwVtCaNWAwWyinPuYpNL4FRl 4QNcP1ABM3gNKdNk3XWUbcQMSMQySqMY8EBMv= ID Date Data Source [id number] 02/24/2020 06:53:35 AM EST [facility] Name Value Range Interpretation Code Description Data Debbie rce(s) Supporting Document(s) EKG [facility] MOLSHj5fWnJIGfOss0KyUjXhDRWvYH5svhd8Z7Q3hZZyA3TydVUae3xoT5FmU3WuWICiURBXTF7ZyCTx jb2 [file] ++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+/nhC/v5oABfnfUgxdf17Lg2+gsiU86mn806ceE8qgoiLMXWYJXH+aqQJEO+CwWEmw3SRWDvs5 [file] qeXLX0Pf4WxeQxICOeBCNQSw8Gq030ABIlJENOFjv+CqegiTPfuAeiMIGCFEC4MXNIZSNNN9Z= ID Date Data Source [id number] 02/24/2020 07:33:30 AM EST [facility] Name Value Range Interpretation Code Description Data Debbie rce(s) Supporting Document(s) SODIUM 137 mmol/L (136-145) [facility] POTASSIUM 4.5 mmol/L (3.6-5.2) [facility] SLIGHT HEMOLYSIS CHLORIDE 101 mmol/L (100-108) [facility] CO2 26 mmol/L (22-31) [facility] ANION GAP 10 mmol/L (7-16) [facility] UREA NITROGEN 14 mg/dL (7-24) [facility] CREATININE 0.94 mg/dL (0.80-1.30) [facility] BUN/CREAT RATIO 14.9 RATIO (10.0-20.0) [facility] GLUCOSE 106 mg/dL (70-99) H [facility] CALCIUM 9.2 mg/dL (8.4-10.2) [facility] GFR >60 ml/min/1.73m2 (>59) [facility] GFR ( AMER) >60 ml/min/1.73m2 (>59) [facility] GFR INTERPRETATION [facility] --NORMAL KIDNEY FUNCTION OR MILD DISEASE - GFR >OR= 60CHRONIC KIDNEY DISEASE - GFR 15 - 59RENAL FAILURE - GFR <15 Est. GFR calculation based on the MDRDstudy equation, which assumes a steadystate for creatinine. Est. GFR should notbe used for medication dosing. ID Date Data Source [id number] 02/24/2020 06:53:36 AM EST [facility] Name Value Range Interpretation Code Description Data Debbie rce(s) Supporting Document(s) WBC 7.4 10*3/uL (4.1-11.0) [facility] RBC 3.68 10*6/uL (4.60-6.10) L [facility] HGB 9.7 g/dL (13.5-18.0) L [facility] HCT 29.1 % (41.0-53.0) L [facility] [place] [address] [place] [address] MCV 78.9 fL (80.0-95.0) L [facility] MCH 26.3 pg (27.0-32.0) L [facility] MCHC 33.3 g/dL (32.0-36.0) [facility] RDW 17.1 % (10.5-14.5) H [facility] PLT 391 10*3/uL (150-450) [facility] MPV 6.3 fL (7.1-10.7) L [facility] ID Date Data Source [id number] 02/19/2020 10:00:00 AM EST [facility] Name Value Range Interpretation Code Description Data Debbie rce(s) Supporting Document(s) SARS coronavirus 2 RNA Not Detected [facility] This lab was ordered by [facility] and reported by [facility]. ID Date Data Source H PYLORI SERUM QUANT IGM 01/24/2020 12:00:00 AM EST eCW1 ([facility]) Name Value Range Interpretation Code Description Data Debbie rce(s) Supporting Document(s) <9.0 0.0-8.9 H PYLORI SERUM QUANT IGM eCW1 ([facility]) ID Date Data Source H PYLORI SERUM QUANT IGA 01/24/2020 12:00:00 AM EST eCW1 ([facility]) Name Value Range Interpretation Code Description Data Debbie rce(s) Supporting Document(s) <9.0 0.0-8.9 H PYLORI SERUM QUANT IGA eCW1 ([facility]) ID Date Data Source H PYLORI SERUM QUANT IgG REINALDO 01/24/2020 12:00:00 AM EST eCW1 ([facility]) Name Value Range Interpretation Code Description Data Debbie rce(s) Supporting Document(s) 0.50 0.00-0.79 H PYLORI SERUM QUANT IgG REINALDO eCW1 ([facility]) ID Date Data Source CBC with Differential 01/24/2020 12:00:00 AM EST eCW1 ([facility]) Name Value Range Interpretation Code Description Data Debbie rce(s) Supporting Document(s) 10.7 13.5-17.5 HEMOGLOBIN eCW1 ([facility]) 4.17 4.30-6.10 RED BLOOD COUNT eCW1 ([facility]) 6.0 4.0-10.0 WHITE BLOOD COUNT eCW1 ([facility]) 15.2 11.5-14.5 RED CELL DISTRIBUTION WID TH eCW1 ([facility]) 31.5 32.0-36.5 MEAN CORPUSCULAR HGB CONC eCW1 ([facility]) 25.7 27.0-33.0 MEAN CORPUSCULAR HEMOGLOB IN eCW1 ([facility]) 34.0 42.0-52.0 HEMATOCRIT eCW1 ([facility]) 81.5 80.0-96.0 MEAN CORPUSCULAR VOLUME e CW1 ([facility]) 19.9 24.0-44.0 LYMPH % eCW1 ([facility]) 64.2 36.0-66.0 NEUTROPHILS % eCW1 ([facility]) 13.5 0.0-5.0 MONO % eCW1 ([facility]) 485 150-450 PLATELET COUNT, AUTOMATED eCW1 ([facility]) 1.2 1.5-5.0 LYMPH # eCW1 ([facility]) 0.8 0.0-0.8 MONO # eCW1 ([facility]) 0.8 0.0-1.0 BASO % eCW1 ([facility]) 3.8 1.5-8.5 NEUTROPHILS # eCW1 ([facility]) 0.8 0.0-3.0 EOS % eCW1 ([facility]) 0.1 0.0-0.5 EOS # eCW1 ([facility]) 0.1 0.0-0.2 BASO # eCW1 ([facility]) ID Date Data Source [id number] 01/18/2020 11:54:00 AM EST [facility] Name Value Range Interpretation Code Description Data Debbie rce(s) Supporting Document(s) SARS coronavirus 2 RNA [Presence] in Res piratory specimen by RAD with probe detection [facility] This lab was ordered by [facility] a nd reported by [facility]. ID Date Data Source DDIMER QUANT 01/17/2020 12:00:00 AM EST eCW1 ([facility]) Name Value Range Interpretation Code Description Data Debbie rce(s) Supporting Document(s) 1365.93 <500 D-DIMER QUANT eCW1 ([facility]) ID Date Data Source MAGNESIUM LEVEL 01/17/2020 12:00:00 AM EST eCW1 ([facility]) Name Value Range Interpretation Code Description Data Debbie rce(s) Supporting Document(s) 2.4 1.8-2.4 MAGNESIUM LEVEL eCW1 ([facility]) ID Date Data Source FERRITIN 01/17/2020 12:00:00 AM EST eCW1 ([facility]) Name Value Range Interpretation Code Description Data Debbie rce(s) Supporting Document(s) 17 26-388 FERRITIN eCW1 ([facility]) ID Date Data Source IRON (FE) 01/17/2020 12:00:00 AM EST eCW1 ([facility]) Name Value Range Interpretation Code Description Data Debbie rce(s) Supporting Document(s) 20 65-175 IRON (FE) eCW1 ([facility]) ID Date Data Source Comprehensive Metabolic Profile (CMP) 01/17/2020 12:00:00 AM EST eCW1 ([facility]) Name Value Range Interpretation Code Description Data Debbie rce(s) Supporting Document(s) 78 70-100 GLUCOSE, FASTING eCW1 ([facility]) 10 7-18 BLOOD UREA NITROGEN eCW1 ([facility]) 130 136-145 SODIUM LEVEL eCW1 ([facility]) > 60.0 >49 GLOMERULAR FILTRATION RATE eCW 1 ([facility]) 4.0 3.5-5.1 POTASSIUM SERUM eCW1 ([facility]) 0.82 0.70-1.30 CREATININE FOR GFR eCW1 ([facility]) 27 21-32 CARBON DIOXIDE LEVEL eCW1 ([facility]) 9.0 8.8-10.2 CALCIUM LEVEL eCW1 ([facility]) 20 7-37 AST/SGOT eCW1 ([facility]) 97 98-107 CHLORIDE LEVEL eCW1 ([facility]) 6.9 6.4-8.2 TOTAL PROTEIN eCW1 ([facility]) 131 45-117 ALKALINE PHOSPHATASE eCW1 ([facility]) 0.3 0.2-1.0 BILIRUBIN,TOTAL eCW1 ([facility]) 30 12-78 ALT/SGPT eCW1 ([facility]) 1.2 ALBUMIN/GLOBULIN RATIO eCW1 ([facility]) 3.8 3.2-5.2 ALBUMIN eCW1 ([facility]) ID Date Data Source CARDIAC MARKER PANEL 01/17/2020 12:00:00 AM EST eCW1 ([facility]) Name Value Range Interpretation Code Description Data Debbie rce(s) Supporting Document(s) 124 39-308 CPK CREATINE PHOSPHOKINASE eCW 1 ([facility]) 1.9 <3.6 CK-MB VALUE MASS eCW1 ([facility]) < 0.02 < 0.10 TROPONIN I eCW1 ([facility]) 1.53 < OR =4 MB/CK RELATIVE INDEX eCW1 ([facility]) ID Date Data Source C REACTIVE PROTEIN QUANTITATIV (At [facility]) 12/09/2019 12:00 :00 AM EDT eCW1 ([facility]) Name Value Range Interpretation Code Description Data Debbie rce(s) Supporting Document(s) 0.37 0.00-0.30 C REACTIVE PROTEIN QUANTI TATIV eCW1 ([facility]) ID Date Data Source FREE T4 & TSH PANEL 12/09/2019 12:00:00 AM EDT eCW1 ([facility]) Name Value Range Interpretation Code Description Data Debbie rce(s) Supporting Document(s) 1.600 0.358-3.740 eCW1 ([facility]) 0.85 0.76-1.46 eCW1 ([facility]) ID Date Data Source ERYTHROCYTE SEDIMENTATION RATE 12/09/2019 12:00:00 AM EDT eC W1 ([facility]) Name Value Range Interpretation Code Description Data Debbie rce(s) Supporting Document(s) 8 0-20 ERYTHROCYTE SEDIMENTATION RATE eCW1 ([facility]) ID Date Data Source CPK CREATINE PHOSPHOKINASE 12/09/2019 12:00:00 AM EDT eCW1 ( [facility]) Name Value Range Interpretation Code Description Data Debbie rce(s) Supporting Document(s) 118 39-308 CPK CREATINE PHOSPHOKINASE eCW 1 ([facility]) ID Date Data Source [id number] 05/02/2019 07:15:00 AM EDT MEDENT ([facility], ) Name Value Range Interpretation Code Description Data Debbie rce(s) Supporting Document(s) Glucose, Fasting 110 mg/dL 70-100 Above high normal M EDENT ([facility], ) Blood Urea Nitrogen 12 mg/dL 7-18 Normal (applies to non-nume partha results) [facility] ([facility], ) Creatinine For GFR 0.79 mg/dL 0.70-1.30 Normal (applies to non -numeric results) [facility] ([facility]) Sodium Level 135 meq/L 136-145 Below low normal [facility] ([facility]) Potassium Serum 4.0 meq/L 3.5-5.1 Normal (applies to non-numeric results) [facility] ([facility]) Glomerular Filtration Rate Laboratory test result Normal (applies to non- numeric results) [facility]) <content>Units are mL/min/1.73 m2</content>
<content></content>
<content>Chronic Kidney Disease Staging per NKF:</content>
<content></content>
<content>Stage I & II GFR >=60 Normal to Mildly Decreased</content>
<content>Stage III GFR 30- 59 Moderately Decreased</content>
<content>Stage IV GFR 15-29 Severely Decreased</content>
<content>Stage V GFR <15 Very Little GFR Left</content>
<content>ESRD GFR <15 on COMPO CASTER</content>
<content></content> Carbon Dioxide Level 26 meq/L 21-32 Normal (applies to non-num natasha results) [facility]) Anion Gap 6 meq/L 8-16 Below low normal [facility] ( [facility]) Chloride Level 103 meq/L 98-107 Normal (applies to non-numeric r esults) [facility]) Calcium Level 8.9 mg/dL 8.8-10.2 Normal (applies to non-numeric re sults) [facility]) ID Date Data Source [id number] 05/02/2019 07:15:00 AM EDT [facility]) Name Value Range Interpretation Code Description Data Debbie rce(s) Supporting Document(s) White Blood Count 7.9 10 4.0-10.0 Normal (applies to non-numeri c results) [facility] ([facility]) Red Blood Count 5.02 10 4.30-6.10 Normal (applies to non-numeric results) [facility] ([facility]) Hemoglobin 15.4 g/dL 13.5-17.5 Normal (applies to non-numeric resul ts) [facility]) Hematocrit 43.9 % 42.0-52.0 Normal (applies to non-numeric resul ts) [facility]) Mean Corpuscular Volume 87.5 fl 80.0-96.0 Normal ( applies to non-numeric results) [facility]) Mean Corpuscular Hemoglobin 30.7 pg 27.0-33.0 Norm al (applies to non-numeric results) [facility] ([facility]) Red Cell Distribution Width 14.6 % 11.5-14.5 Above high normal [facility] ([facility]) Mean Corpuscular HGB Conc 35.1 g/dL 32.0-36.5 Normal (applies to non-numeric results) [facility] ([facility]) Platelet Count, Automated 327 10 150-450 Normal (applies to non-numeric results) [facility] ([facility]) Nucleated Red Blood Cell % 0.0 % 0-0 Normal (applies to n on-numeric results) [facility] ([facility]) ID Date Data Source [id number] 03/14/2019 10:04:00 AM EST [facility]) Name Value Range Interpretation Code Description Data Debbie rce(s) Supporting Document(s) Creatinine For GFR 0.78 mg/dL 0.70-1.30 Normal (applies to non -numeric results) [facility] ([facility]) Glucose, Fasting 100 mg/dL 70-100 Normal (applies to non-numeric results) [facility] ([facility]) Blood Urea Nitrogen 6 mg/dL 7-18 Below low normal [facility] ([facility]) Glomerular Filtration Rate Laboratory test result Normal (applies to non- numeric results) [facility]) <content>Units are mL/min/1.73 m2</content>
<content></content>
<content>Chronic Kidney Disease Staging per NKF:</content>
<content></content>
<content>Stage I & II GFR >=60 Normal to Mildly Decreased</content>
<content>Stage III GFR 30- 59 Moderately Decreased</content>
<content>Stage IV GFR 15-29 Severely Decreased</content>
<content>Stage V GFR <15 Very Little GFR Left</content>
<content>ESRD GFR <15 on COMPO CASTER</content>
<content></content> Potassium Serum 3.7 meq/L 3.5-5.1 Normal (applies to non-numeric results) [facility] Sodium Level 135 meq/L 136-145 Below low normal [facility] ([facility]) Carbon Dioxide Level 31 meq/L 21-32 Normal (applies to non-num natasha results) [facility]) Chloride Level 96 meq/L 98-107 Below low normal [facility] ([facility]) Calcium Level 9.3 mg/dL 8.8-10.2 Normal (applies to non-numeric re sults) [facility] ([facility]) Anion Gap 8 meq/L 8-16 Normal (applies to non-numeric resul ts) [facility]) ID Date Data Source [id number] 03/14/2019 10:04:00 AM EST [facility] ([facility]) Name Value Range Interpretation Code Description Data Debbie rce(s) Supporting Document(s) Red Blood Count 5.12 10 4.30-6.10 Normal (applies to non-numeric results) [facility] ([facility]) White Blood Count 8.2 10 4.0-10.0 Normal (applies to non-numeri c results) [facility] ([facility]) Hematocrit 44.2 % 42.0-52.0 Normal (applies to non-numeric resul ts) [facility]) Hemoglobin 15.6 g/dL 13.5-17.5 Normal (applies to non-numeric resul ts) [facility]) Mean Corpuscular Volume 86.3 fl 80.0-96.0 Normal ( applies to non-numeric results) [facility]) Red Cell Distribution Width 13.5 % 11.5-14.5 Norm al (applies to non-numeric results) [facility]) Mean Corpuscular HGB Conc 35.3 g/dL 32.0-36.5 Normal (applies to non-numeric results) [facility]) Mean Corpuscular Hemoglobin 30.5 pg 27.0-33.0 Norm al (applies to non-numeric results) [facility]) Platelet Count, Automated 375 10 150-450 Normal (applies to non-numeric results) [facility] ([facility], ) Nucleated Red Blood Cell % 0.0 % 0-0 Normal (applies to n on-numeric results) [facility]) Procedure Social History Code Duration Value Status Description Data Source(s ) Alcohol intake 03/15/2020 12:00:00 AM EST Yes completed [facility] Smoking 03/15/2020 12:00:00 AM EST Former smoker completed Former smoker [facility] Alcohol intake 02/24/2020 12:00:00 AM EST Yes completed [facility] Smoking 02/24/2020 12:00:00 AM EST Former smoker completed Former smoker [facility] Smoking 02/20/2020 12:00:00 AM EST Former Smoker completed Former Smoker [email or web address] ([facility]) Smoking 02/20/2020 12:00:00 AM EST Former Smoker completed Former Smoker [email or web address] ([facility]) Smoking 02/20/2020 12:00:00 AM EST Former Smoker completed Former Smoker [email or web address] ([facility] [facility]) Smoking 02/20/2020 12:00:00 AM EST Former Smoker completed Former Smoker eCW1 ([facility]) Alcohol intake 02/09/2020 12:00:00 AM EST Yes completed [facility] Smoking 02/09/2020 12:00:00 AM EST Former smoker completed Former smoker [facility] Smoking 02/06/2020 12:00:00 AM EST Former Smoker completed Former Smoker eCW1 ([facility]) Smoking 02/06/2020 12:00:00 AM EST Former Smoker completed Former Smoker eCW1 ([facility]) Smoking 02/06/2020 12:00:00 AM EST Former Smoker completed Former Smoker eCW1 ([facility]) Smoking 02/06/2020 12:00:00 AM EST Former Smoker completed Former Smoker eCW1 ([facility]) Smoking 01/16/2020 12:00:00 AM EST Former Smoker completed Former Smoker eCW1 ([facility]) Smoking 01/16/2020 12:00:00 AM EST Former Smoker completed Former Smoker eCW1 ([facility]) Smoking 01/16/2020 12:00:00 AM EST Former Smoker completed Former Smoker eCW1 ([facility]) Smoking 01/16/2020 12:00:00 AM EST Former Smoker completed Former Smoker eCW1 ([facility]) Smoking 12/15/2019 12:00:00 AM EST Patient is a former smoker completed Patient is a former smoker [facility] ([facility]) Smoking 12/09/2019 12:00:00 AM EDT Former Smoker completed Former Smoker eCW1 ([facility]) Smoking 12/09/2019 12:00:00 AM EDT Former Smoker completed Former Smoker eCW1 ([facility]) Smoking 12/09/2019 12:00:00 AM EDT Former Smoker completed Former Smoker eCW1 ([facility]) 02/09/2019 12:00:00 AM EST Cigarette Smoker completed Cig arette Smoker [facility] 02/09/2019 12:00:00 AM EST Current smoker completed Curre nt smoker [facility] 02/09/2019 12:00:00 AM EST Cigarette Smoker completed Cig arette Smoker [facility] 02/09/2019 12:00:00 AM EST Current smoker completed Curre nt smoker [facility] 02/09/2019 12:00:00 AM EST Cigarette Smoker completed Cig arette Smoker [facility] 02/09/2019 12:00:00 AM EST Current smoker completed Curre nt smoker [facility] Vital Signs ID Date Data Source UNK Name Value Range Interpretation Code Description Data Source(s) Body surface area Derived from formula 2.17 m2 2.17 m2 [facility] ([facility]) Body weight 97.070 kg 97.070 kg [facility] ([facility]) [place] body weight 172 [lb_av] 172 [lb_av] MEDEN T ([facility]) Body mass index (BMI) [Ratio] 29.8 kg/m2 29.8 k g/m2 [facility] ([facility]) Body weight 214.00 [lb_av] 214.00 [lb_av] MEDEN T ([facility], ) Body height 71 [in_i] 71 [in_i] MEDFELISHA ([facility], ) 5'11" Diastolic blood pressure 73 mm[Hg] 73 mm[Hg] MEDENT ([facility], ) Systolic blood pressure 151 mm[Hg] 151 mm[Hg] M EDFELISHA ([facility], ) Oxygen saturation in Arterial blood by Pulse oximetry 96 % 96 % [facility] Body mass index (BMI) [Ratio] 30.54 kg/m2 30.54 kg/m2 [facility] Body weight 99.338 kg 99.338 kg [facility] Body height 180.3 cm 180.3 cm [facility] Heart rate 75 /min 75 /min [facility] Diastolic blood pressure 66 mm[Hg] 66 mm[Hg] [facility] Systolic blood pressure 130 mm[Hg] 130 mm[Hg] [facility] Oxygen saturation in Arterial blood by Pulse oximetry 98 % 98 % [facility] Respiratory rate 16 /min 16 /min [facility] Body temperature 36.5 Ellie 36.5 Ellie [facility] Heart rate 86 /min 86 /min [facility] Diastolic blood pressure 69 mm[Hg] 69 mm[Hg] [facility] Systolic blood pressure 137 mm[Hg] 137 mm[Hg] [facility] Body mass index (BMI) [Ratio] 29.00 kg/m2 29.00 kg/m2 [facility] Body weight 94.3 kg 94.3 kg [facility] Body height 180.3 cm 180.3 cm [facility] Diastolic blood pressure 78 mm[Hg] 78 mm[Hg] eCW1 ([facility]) Systolic blood pressure 128 mm[Hg] 128 mm[Hg] e CW1 ([facility]) Body temperature 98.0 [degF] 98.0 [degF] eCW1 ( [facility]) Respiratory rate 18 /min 18 /min eCW1 ([facility]) Heart rate 97 /min 97 /min eCW1 ([facility]) Body mass index (BMI) [Ratio] 29.70 kg/m2 29.70 kg/m2 eCW1 ([facility]) Body height [in_i] eCW1 ([facility]) Body weight 213 [lb_av] 213 [lb_av] eCW1 ([facility]) Oxygen saturation in Arterial blood by Pulse oximetry 96 % 96 % [facility] Body mass index (BMI) [Ratio] 29.71 kg/m2 29.71 kg/m2 [facility] Body weight 96.616 kg 96.616 kg [facility] Body height 180.3 cm 180.3 cm [facility] Heart rate 89 /min 89 /min [facility] Diastolic blood pressure 62 mm[Hg] 62 mm[Hg] [facility] Systolic blood pressure 118 mm[Hg] 118 mm[Hg] [facility] Diastolic blood pressure 70 mm[Hg] 70 mm[Hg] eCW1 ([facility]) Systolic blood pressure 130 mm[Hg] 130 mm[Hg] e CW1 ([facility]) Body temperature 97.7 [degF] 97.7 [degF] eCW1 ( [facility]) Respiratory rate 18 /min 18 /min eCW1 ([facility]) Heart rate 105 /min 105 /min eCW1 ([facility]) Body mass index (BMI) [Ratio] 29.48 kg/m2 29.48 kg/m2 W1 ([facility]) Body height [in_i] eCW1 ([facility]) Body weight 211.4 [lb_av] 211.4 [lb_av] eCW1 ([facility]) Diastolic blood pressure 70 mm[Hg] 70 mm[Hg] eCW1 ([facility]) Systolic blood pressure 150 mm[Hg] 150 mm[Hg] e CW1 ([facility]) Body temperature 98.6 [degF] 98.6 [degF] eCW1 ( [facility]) Respiratory rate 18 /min 18 /min eCW1 ([facility]) Heart rate 103 /min 103 /min eCW1 ([facility]) Body mass index (BMI) [Ratio] 29.87 kg/m2 29.87 kg/m2 eCW1 ([facility]) Body height [in_i] eCW1 ([facility]) Body weight 214.2 [lb_av] 214.2 [lb_av] eCW1 ([facility]) Body surface area Derived from formula 2.17 m2 2.17 m2 [facility] ([facility]) Body weight 96.674 kg 96.674 kg [facility] ([facility]) [place] body weight 172 [lb_av] 172 [lb_av] MEDEN T ([facility]) Body mass index (BMI) [Ratio] 29.7 kg/m2 29.7 k g/m2 [facility] Body weight 213.12 [lb_av] 213.12 [lb_av] MEDEN T ([facility]) Body height 71 [in_i] 71 [in_i] [facility] ([facility]) 5'11" Diastolic blood pressure 82 mm[Hg] 82 mm[Hg] [facility] L arm 133/77 Systolic blood pressure 136 mm[Hg] 136 mm[Hg] M [facility] ([facility]) L arm 133/77 Systolic blood pressure 162 mm[Hg] 162 mm[Hg] e CW1 ([facility]) Body temperature 97.4 [degF] 97.4 [degF] eCW1 ( [facility]) Respiratory rate 18 /min 18 /min eCW1 ([facility]) Heart rate 97 /min 97 /min eCW1 ([facility]) Body mass index (BMI) [Ratio] 29.70 kg/m2 29.70 kg/m2 eCW1 ([facility]) Body height [in_i] eCW1 ([facility]) Body weight 213.0 [lb_av] 213.0 [lb_av] eCW1 ([facility]) Diastolic blood pressure 78 mm[Hg] 78 mm[Hg] eCW1 ([facility]) Body weight 92.138 kg 92.138 kg [facility] ([facility]) [place] body weight 172 [lb_av] 172 [lb_av] MEDEN T ([facility]) Body mass index (BMI) [Ratio] 28.3 kg/m2 28.3 k g/m2 [facility] ([facility]) Body weight 203.12 [lb_av] 203.12 [lb_av] MEDEN T ([facility]) Body height 71 [in_i] 71 [in_i] [facility] ([facility]) 5'11" Diastolic blood pressure 74 mm[Hg] 74 mm[Hg] [facility] ([facility]) Systolic blood pressure 143 mm[Hg] 143 mm[Hg] [facility] ([facility]) Body weight 89.926 kg 89.926 kg [facility] ([facility]) Body mass index (BMI) [Ratio] 27.6 kg/m2 27.6 k g/m2 [facility] ([facility]) Body weight 198.25 [lb_av] 198.25 [lb_av] [facility] Body height 71 [in_i] 71 [in_i] [facility] ([facility]) 5'11" Body temperature 97.1 [degF] 97.1 [degF] [facility] ([facility]) Diastolic blood pressure 68 mm[Hg] 68 mm[Hg] [facility] ([facility]) Systolic blood pressure 124 mm[Hg] 124 mm[Hg] [facility] Body weight 91.400 kg 91.400 kg [facility] ([facility]) Body mass index (BMI) [Ratio] 28.1 kg/m2 28.1 k g/m2 [facility] ([facility]) Body weight 201.50 [lb_av] 201.50 [lb_av] MEDEN T ([facility]) Body height 71 [in_i] 71 [in_i] [facility] 5'11" Body temperature 98.1 [degF] 98.1 [degF] [facility]) Diastolic blood pressure 78 mm[Hg] 78 mm[Hg] [facility] ([facility]) Systolic blood pressure 174 mm[Hg] 174 mm[Hg] M [facility] ([facility]) Body weight 91.627 kg 91.627 kg [facility] ([facility]) Body mass index (BMI) [Ratio] 28.2 kg/m2 28.2 k g/m2 [facility] ([facility]) Body weight 202.00 [lb_av] 202.00 [lb_av] MEDEN T ([facility]) Body height 71 [in_i] 71 [in_i] [facility] ([facility]) 5'11" Diastolic blood pressure 69 mm[Hg] 69 mm[Hg] [facility] ([facility]) Systolic blood pressure 134 mm[Hg] 134 mm[Hg] [facility] Diastolic blood pressure 72 mm[Hg] 72 mm[Hg] eCW1 ([facility]) Systolic blood pressure 138 mm[Hg] 138 mm[Hg] e CW1 ([facility]) Body temperature 98.8 [degF] 98.8 [degF] eCW1 ( [facility]) Respiratory rate 17 /min 17 /min eCW1 ([facility]) Heart rate 90 /min 90 /min eCW1 ([facility]) Body mass index (BMI) [Ratio] 28.73 kg/m2 28.73 kg/m2 eCW1 ([facility]) Body height [in_us] eCW1 ([facility]) Body weight Measured 206 [lb_av] 206 [lb_av] eC W1 ([facility]) Diastolic blood pressure 72 mm[Hg] 72 mm[Hg] eCW1 ([facility]) Systolic blood pressure 154 mm[Hg] 154 mm[Hg] e CW1 ([facility]) Body temperature 98.7 [degF] 98.7 [degF] eCW1 ( [facility]) Respiratory rate 20 /min 20 /min eCW1 ([facility]) Heart rate 110 /min 110 /min eCW1 ([facility]) Body mass index (BMI) [Ratio] 28.78 kg/m2 28.78 kg/m2 eCW1 ([facility]) Body height [in_us] eCW1 ([facility]) Body weight Measured 206.4 [lb_av] 206.4 [lb_av ] eCW1 ([facility]) Body weight 93.612 kg 93.612 kg MEDENT ([facility], ) Body mass index (BMI) [Ratio] 28.8 kg/m2 28.8 k g/m2 MEDENT ([facility], ) Body weight 206.38 [lb_av] 206.38 [lb_av] MEDEN T ([facility], ) Body height 71 [in_i] 71 [in_i] MEDFELISHA ([facility], ) 5'11" Diastolic blood pressure 82 mm[Hg] 82 mm[Hg] MEDFELISHA ([facility], ) Systolic blood pressure 154 mm[Hg] 154 mm[Hg] M EDFELISHA ([facility], ) Patient Treatment Plan of Care Planned Activity Planned Date Details Description Data Source (s) Lisinopril 40 MG Oral Tablet 02/26/2020 12:00:00 AM [facility] Chlorthalidone 25 MG Oral Tablet 02/26/2020 12:00:00 AM [facility] Citalopram 40 MG Oral Tablet 01/18/2020 12:00:00 AM [facility] Sucralfate 1000 MG Oral Tablet 01/18/2020 12:00:00 AM EST [facility] Tamsulosin hydrochloride 0.4 MG Oral Capsule 01/18/2020 12:00:00 AM EST [facility] Lisinopril 40 MG Oral Tablet 01/18/2020 12:00:00 AM EST [facility] Chlorthalidone 25 MG Oral Tablet 01/18/2020 12:00:00 AM EST [facility] Sucralfate 1000 MG Oral Tablet [Carafate] 01/17/2020 12:00:00 AM ES T eCW1 ([facility]) Sucralfate 1000 MG Oral Tablet [Carafate] 01/17/2020 12:00:00 AM ES T eCW1 ([facility]) Sucralfate 1000 MG Oral Tablet [Carafate] 01/17/2020 12:00:00 AM ES T eCW1 ([facility]) Sucralfate 1000 MG Oral Tablet [Carafate] 01/17/2020 12:00:00 AM ES T eCW1 ([facility]) Mirtazapine 7.5 MG Oral Tablet 01/16/2020 12:00:00 AM EST [facility] Mirtazapine 7.5 MG Oral Tablet 01/16/2020 12:00:00 AM EST eCW1 ([facility]) Mirtazapine 7.5 MG Oral Tablet 01/16/2020 12:00:00 AM EST eCW1 ([facility]) Mirtazapine 7.5 MG Oral Tablet 01/16/2020 12:00:00 AM EST eCW1 ([facility]) Mirtazapine 7.5 MG Oral Tablet 01/16/2020 12:00:00 AM EST eCW1 ([facility]) Nortriptyline 25 MG Oral Capsule 12/09/2019 12:00:00 AM EDT [facility] atorvastatin 40 MG Oral Tablet 12/09/2019 12:00:00 AM EDT [facility] Tamsulosin hydrochloride 0.4 MG Oral Capsule [Flomax] 12/09/2019 12:00:00 AM EDT eCW1 ([facility]) Tamsulosin hydrochloride 0.4 MG Oral Capsule [Flomax] 12/09/2019 12:00:00 AM EDT eCW1 ([facility]) Tamsulosin hydrochloride 0.4 MG Oral Capsule [Flomax] 12/09/2019 12:00:00 AM EDT eCW1 ([facility]) atorvastatin 80 MG Oral Tablet 10/18/2019 12:00:00 AM EDT [facility] Multiple Vitamin tablet 02/04/2018 12:00:00 AM EST [facility] Acetaminophen 325 MG / Hydrocodone Bitartrate 10 MG Or al Tablet 01/30/2015 12:00:00 AM EST [facility]
--- NOTE | 2020-04-05 09:35 | REP ---
INDICATION: SOB. COMPARISON: Chest x-ray 02/16/2018, CT angio 01/18/2020 TECHNIQUE: Two AP portable images FINDINGS: Lung lagunas are well inflated. There is no pleural effusion, acute infiltrate or parenchymal mass. Some mild chronic basilar interstitial changes noted. No dense consolidation or parenchymal mass. No pneumothorax or pleural thickening. Heart is not enlarged. Calcified aortic arch but with no aneurysm. Airway intact. Prior C6-7 cervical fusion with plate and screw fixation as before. Degenerative changes spine and shoulders with no free air under the diaphragm. IMPRESSION: 1. Some minor basilar fibrotic change but no acute cardiopulmonary disease. 2. Mildly calcified aortic arch without aneurysm. Prior C6-7 anterior cervical discectomy/fusion and chronic degenerative changes spine and shoulders. <Electronically signed by Piyush Hanson > 04/05/20 [id number]
--- NOTE | 2020-04-05 09:41 | ECGEPIP ---
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
[2020-04-05 09:45] LABS: BLOOD UREA NITROGEN 12 MG/DL (7-18); CALCIUM LEVEL 9.1 MG/DL (8.8-10.2); CARBON DIOXIDE LEVEL 29 MEQ/L (21-32); CHLORIDE LEVEL 100 MEQ/L (98-107); CK-MB VALUE MASS 1.6 NG/ML (<3.6); CPK CREATINE PHOSPHOKINASE 123 U/L (39-308); CREATININE FOR GFR 0.84 MG/DL (0.70-1.30); GLOMERULAR FILTRATION RATE > 60.0 (>49); GLUCOSE, FASTING 102 MG/DL (70-100); POTASSIUM SERUM 4.1 MEQ/L (3.5-5.1); SODIUM LEVEL 134 MEQ/L (136-145); TROPONIN I 0.03 NG/ML (< 0.10)
[2020-04-05 10:19] LABS: FERRITIN 10 NG/ML (26-388); IRON (FE) 21 UG/DL (65-175); PERCENT SATURATION 5.2 % (19.7-50.0); TOTAL IRON BINDING CAPACITY 403 UG/DL (250-450)
[2020-04-05 10:26] LABS: VITAMIN B12 LEVEL 455 PG/ML (247-911)
[2020-04-05 10:27] LABS: FOLATE 16.5 NG/ML (>5.4)
--- OUTSIDE RECORDS SUMMARY | 2020-04-05 10:43 | CCD ---
Author Author [facility] Organization [facility] Address Unknown Phone Unavailable Care Team Providers Care Kettle Chipper Name Role Phone Genao, Zhandong Unavailable Unavailable [...] Villaseñorjtech Unavailable Unavailable Henry Villaseñorjtech Unavailable Unavailable Jnaell Villaseñortech Unavailable Unavailable Henry Villaseñorjtech Unavailable Unavailable [...] Unavailable Unavailable Henry Villaseñorjtech Unavailable Unavailable Henry Villaseoñrjtech Unavailable Unavailable Henry Villaseñorjtech Unavailable Unavailable Henry [...] R Sonal PA Unavailable Unavailable Swatsworth, R Soanl PA Unavailable Unavailable Swatsworth, R Sonal PA Unavailable Unavailable Swatsworth, R Sonal PA Unavailable Unavailable Mello, L Marianna RPA Unavailable Unavailable Mello, L Marianna RPA Unavailable Unavailable Mello, L Marianna RPA Unavailable Unavailable Mello, L Marianna RPA Unavailable Unavailable Mello, L Marianna RPA Unavailable Unavailable Mello, L Marianna RPA Unavailable Unavailable Mello, L Marianna RPA Unavailable Unavailable Mello, L Marainna RPA Unavailable Unavailable Mello, L Marianna RPA [...] [facility], [facility] Unavailable Unavailable Detor, M Isac ORACLE FINANCIAL APPLICATION DEVELOPER Unavailable Unavailable Detor, M Isac ORACLE FINANCIAL APPLICATION DEVELOPER Unavailable Unavailable Detor, M Isac ORACLE FINANCIAL APPLICATION DEVELOPER Unavailable Unavailable Detor, M Isac ORACLE FINANCIAL APPLICATION DEVELOPER Unavailable Unavailable Detor, M Isac ORACLE FINANCIAL APPLICATION DEVELOPER Unavailable Unavailable Detor, M Isac ORACLE FINANCIAL APPLICATION DEVELOPER Unavailable Unavailable Detor, M Isac ORACLE FINANCIAL APPLICATION DEVELOPER Unavailable Unavailable Detor, M Isac ORACLE FINANCIAL APPLICATION DEVELOPER Unavailable Unavailable Detor, M Isac ORACLE FINANCIAL APPLICATION DEVELOPER Unavailable Unavailable Detor, M Isac ORACLE FINANCIAL APPLICATION DEVELOPER Unavailable Unavailable Detor, M Isac ORACLE FINANCIAL APPLICATION DEVELOPER Unavailable Unavailable Detor, M Isac ORACLE FINANCIAL APPLICATION DEVELOPER Unavailable Unavailable Detor, M Isac ORACLE FINANCIAL APPLICATION DEVELOPER Unavailable Unavailable Detor, M Isac ORACLE FINANCIAL APPLICATION DEVELOPER Unavailable Unavailable Detor, M Isac ORACLE FINANCIAL APPLICATION DEVELOPER Unavailable Unavailable Detor, M Isac ORACLE FINANCIAL APPLICATION DEVELOPER Unavailable Unavailable Detor, M Isac ORACLE FINANCIAL APPLICATION DEVELOPER Unavailable Unavailable Detor, M Isac ORACLE FINANCIAL APPLICATION DEVELOPER Unavailable Unavailable Detor, M Isac ORACLE FINANCIAL APPLICATION DEVELOPER Unavailable Unavailable Detor, M Isac ORACLE FINANCIAL APPLICATION DEVELOPER Unavailable Unavailable Detor, M Isac ORACLE FINANCIAL APPLICATION DEVELOPER Unavailable Unavailable Detor, M Isac ORACLE FINANCIAL APPLICATION DEVELOPER Unavailable Unavailable Detor, M Isac ORACLE FINANCIAL APPLICATION DEVELOPER Unavailable Unavailable Detor, M Isac ORACLE FINANCIAL APPLICATION DEVELOPER Unavailable Unavailable Detor, M Isac ORACLE FINANCIAL APPLICATION DEVELOPER Unavailable Unavailable Detor, M Isac ORACLE FINANCIAL APPLICATION DEVELOPER Unavailable Unavailable Detor, M Isac ORACLE FINANCIAL APPLICATION DEVELOPER Unavailable Unavailable Detor, M Isac ORACLE FINANCIAL APPLICATION DEVELOPER Unavailable Unavailable Detor, M Isac ORACLE FINANCIAL APPLICATION DEVELOPER Unavailable Unavailable Detor, M Isac ORACLE FINANCIAL APPLICATION DEVELOPER Unavailable Unavailable Detor, M Isac ORACLE FINANCIAL APPLICATION DEVELOPER Unavailable Unavailable Detor, M Isac ORACLE FINANCIAL APPLICATION DEVELOPER Unavailable Unavailable Detor, M Isac ORACLE FINANCIAL APPLICATION DEVELOPER Unavailable Unavailable Detor, M Isac ORACLE FINANCIAL APPLICATION DEVELOPER Unavailable Unavailable Detor, M Isac ORACLE FINANCIAL APPLICATION DEVELOPER Unavailable Unavailable Detor, M Isac ORACLE FINANCIAL APPLICATION DEVELOPER Unavailable Unavailable El-Mabel, Padma Gutiérrez MD Unavailable [...] Unavailable Otto, V ZARINA PA-C Unavailable Unavailable Hurdland, V ZARINA PA-C Unavailable Unavailable Hurdland, V ZARINA PA-C Unavailable Unavailable Hurdland, V ZARINA PA-C Unavailable Unavailable Otto, V ZARINA PA-C Unavailable Unavailable Otto, V ZARINA PA-C Unavailable Unavailable Hurdland, V ZARINA PA-C Unavailable Unavailable Re-disclosure Warning [...] is protected by Article 27-F of the [facility] Public Health law. If you continue you may have access to information: Regarding HIV / AIDS; Provided by facilities licensed or operated by the [facility] Office of Mental Health; or Provided by the [facility] Office for People With Developmental Disabilities. If such information is present, then the following [facility] mandated warning applies: This information has [...] law may result in a fine or longterm sentence or both. A general authorization for the release of medical or other information is NOT sufficient authorization for further disc losure. Family History Family Member Name Family Member Gender Family Member Status Date o f Status Description Data Source(s) Unknown Male Problem [facility] ([facility] Unknown Unknown Problem [facility] ([facility], ) maternal grandfather/father Unknown Unknown Problem [facility] ([facility] Encounters Encounter Providers Location Date Indications Data Source(s ) Outpatient Attender: TISHA Alejandra/Shena/Cas bansal 04/04/2020 02:00:00 PM EST [facility] ([facility] Outpatient Attender: Oneil GenaoReferrer: Oneil Dennis S1-SJ.PETER 04/02/2020 12:26:00 PM EST [facility] Outpatient Attender: Oneil GenaoReferrer: Oneil Christianson OB-MOB.PAT 04/02/2020 10:16:54 AM EST - 04/02/2020 11:35:56 AM EST [facility] Outpatient Referrer: Oneil Genao MOB-MOB.PAT 04/02/19 09:34:30 AM EST - 04/02/2020 09:34:36 AM EST [facility] Outpatient Attender: ZARINA GUIDRY.PARK-JENNYFERP.PARK 05/2020 12:00:00 AM EST - 03/15/2020 10:50:17 AM EST [facility] Outpatient Referrer: Isac MEZA 03/12/2020 03:49:[address] [facility] Outpatient Referrer: Isac MEZA 03/12/2020 03:07:41 P M EST [facility] Inpatient Attender: Oneil GenaoAdmitter: Oneil Dennis S1-OR.PERIOP 02/28/2020 08:52:02 AM EST [facility] MOCAM-MOCAM 02/24/2020 03:01:28 PM EST [facility] Outpatient Attender: Marla Marino MDA dmitter: Marla Marino MDReferrer: Loyd Villaseñor MD ES1-SJ.CVAU 02/24/2020 06:14:00 AM EST - 02/24/2020 12:35:00 PM EST [facility] Patient discharged. Outpatient [address] [facility] [address] 02/20/2020 12:00:00 AM EST eCW1 ([facility]) Unknown [address] [facility] [place] [address] 02/20/2020 12:00:00 AM EST eCW1 ([facility]) Unknown [address] [facility] [address] 02/20/2020 12:00:00 AM EST eCW1 ([facility]) Unknown [address] [facility] [address] 02/16/2020 12:00:00 AM EST eCW1 ([facility]) Unknown [address] [facility] [address] 02/14/2020 12:00:00 AM EST eCW1 ([facility]) Outpatient Referrer: Loyd Villaseñor MD SJP.PARK-SJP.PARK 05/2020 12:00:00 AM EST - 02/13/2020 12:12:14 PM EST [facility] Unknown [address] [facility] [address] 02/13/2020 12:00:00 AM EST eCW1 ([facility]) Outpatient Attender: Loyd Villaseñor MDReferrer: Callie GUIDRY.PARK-SJP.PARK 02/09/2020 12:00:00 AM EST - 02/09/2020 03:04:06 PM EST [facility] Unknown [address] [facility] [address] 02/06/2020 12:00:00 AM EST eCW1 ([facility]) [place]patient [address] [facility] [address] 01/24/2020 12:00:00 AM EST eCW1 ([facility]) Unknown [address] [facility] [address] 01/19/2020 12:00:00 AM EST eCW1 ([facility]) Unknown [address] [facility] [address] 01/19/2020 12:00:00 AM EST eCW1 ([facility]) Unknown [address] [facility] [address] 01/17/2020 12:00:00 AM EST eCW1 ([facility]) Outpatient [address] [facility] [address] 01/16/2020 12:00:00 AM EST eCW1 ([facility]) Unknown [address] [facility] [address] 01/03/2020 12:00:00 AM EST eCW1 ([facility]) Outpatient Attender: Marianna Alejandra/Amboy/Magdy/R eindl 12/14/2019 09:15:00 AM EST [facility] ([facility]) Outpatient [address] [facility] [address] 12/09/2019 12:00:00 AM EDT eCW1 ([facility]) Unknown [address] [facility] [address] 12/09/2019 12:00:00 AM EDT eCW1 ([facility]) Outpatient Attender: Marianna Alejandra/Amboy/Magdy/R eindl 08/09/2019 10:15:00 AM EDT [facility] ([facility]) [address] [address] 07/21/2019 12:00:00 AM EDT eCW1 [facility]) Outpatient Attender: HAYDEN SANCHEZFH LFP 07/19/2019 07:46:28 PM EDT [facility] Outpatient Attender: Marianna Mello RPA Ny/Amboy/Magdy/R eindl 07/13/2019 10:15:00 AM EDT [facility] ([facility]) Outpatient Attender: Marianna Mello RPA Ny/Amboy/Magdy/R eindl 06/20/2019 09:00:00 AM EDT [facility] ([facility]) Outpatient Referrer: BASSAM SPEARS MD 06/06/2019 12:18:00 PM EDT [facility] Outpatient Attender: Marianna Mello RPA Ny/Amboy/Magdy/R eindl 05/09/2019 09:00:00 AM EDT [facility] ([facility] [address] [address] 04/22/2019 12:00:00 AM EDT eCW1 ([facility]) [address] [address] 04/20/2019 12:00:00 AM EDT eCW1 ([facility]) [address] [address] 04/15/2019 12:00:00 AM EST eCW1 ([facility]) [address] [address] 04/07/2019 12:00:00 AM EST eCW1 ([facility]) Outpatient Attender: Marianna Mello RPA Ny/Amboy/Magdy/R eindl 03/14/2019 08:00:00 AM EST [facility] ([facility] [address] [address] 03/10/2019 12:00:00 AM EST eCW1 ([facility]) [facility] [address] [place] [address] 02/23/2019 12:00:00 AM EST eCW1 ([facility]) [facility] [address] [place] [address] 02/22/2019 12:00:00 AM EST eCW1 ([facility]) [facility] [address] [facility] [address] 02/11/2019 12:00:00 AM EST eCW1 ([facility]) Outpatient Referrer: BASSAM SPEARS MD 02/10/2019 08:01:00 [...] tablets (20 mg total) by mouth daily [facility] Chlorthalidone 25 MG Oral Tablet chlorthalidone (HYGRO TEN) 25 MG tablet chlorthalidone (HYGROTEN) 25 MG tablet 02/26/2020 12:00:00 AM EST 2 5 mg Oral active Take 1 tablet (25 mg tota l) by mouth daily [facility] normal saline flush 0.9 % injection 3 mL 25770-843-11 02/24/2020 02:00:00 PM EST 3 mL Intravenous active 3 mL , Intravenous, PROTOCOL, First dose on Thu02/24/20 at 1400, Pre-op
flush per protocol, D/C Main IV fluid if appropriate
[facility] Medication administered onsite iopamidol (ISOVUE-370) 76 % 17468 02/24/2020 10:08:03 AM EST active As needed, Starting Thu02/24/20 at 1008, Intra-Procedu re [facility] Medication administered onsite heparin (porcine) injection 65527-930-23 02/24/2020 09:28:46 AM EST active As needed, Starting Thu02/24/20 at 0928, Intra-Procedure [facility] Medication administered onsite 4 ML Verapamil hydrochloride 2.5 MG/ML Injection verap christiane (ISOPTIN) injection verapamil (ISOPTIN) injection 02/24/2020 09:28:36 AM EST active As needed, Starting Thu02/24/20 at 0928, Intra-Procedure [facility] Medication administered onsite lidocaine 1 % injection 4312-4675-24 02/24/2020 09:28:10 AM EST active As needed, Starting Thu02/24/20 at 0928, Intra-Procedure [facility] Medication administered onsite 2 ML Midazolam 1 MG/ML Injection midazolam (VERSED) in jection midazolam (VERSED) injection 02/24/2020 09:21:02 AM EST active As needed, Starting Thu02/24/20 at 0921, Intra-Procedure [facility] Medication administered onsite fentaNYL Citrate (PF) (SUBLIMAZE) injection 9117-2560-95 02/24/2020 09:20:49 AM EST active As neede d, Starting Thu02/24/20 at 0920, Intra-Procedure [facility] Medication administered onsite normal saline flush 0.9 % injection 3 mL 70340-878-41 02/24/2020 07:00:00 AM EST 3 mL Intravenous active 3 mL , Intravenous, Every 8 hours (scheduled), First dose on Thu02/24/20 at 0700, Pre-op
Rapid push positive pressure flushing shall be performed with a 10 cc normal saline syringe to check the PATENCY of a PIV site prior to any infusion therapy initiation unless resistance is met.
[facility] Medication administered onsite Diphenhydramine Hydrochloride 50 MG Oral Capsule diphenhydrAMINE (BENADRYL) capsule 50 mg diphenhydrAMINE (BENADRYL) capsule 50 mg 02/24/2020 07 :00:00 AM EST 50 mg Oral completed 50 mg, Oral, apprenticeship consultant, Thu02/24/20 at 0700, For 1 dose, Pre-op [facility] Medication administered onsite sodium chloride 0.9% (NS) infusion 7782-9683-22 02/24/2020 07:00:00 AM EST 100 mL/h Intravenous active at 100 m L/hr, 100 mL/hr, Intravenous, Continuous, Starting Thu02/24/20 at 0700, Pre-op
Start two hours prior to scheduled start time
[facility] Medication administered onsite Aspirin 325 MG Oral Tablet aspirin tablet 325 mg aspirin tab let 325 mg 02/24/2020 07:00:00 AM EST 325 mg Oral completed 325 mg, Oral, Once, Thu02/24/20 at 0700, For 1 dose, Pre-op
Give if scheduled for cardiac or peripheral angioplasty/stent or carotid stenting.Administer AM dose prior to procedure if NOT taken at home.Max of 1 dose per day.
[facility] Medication administered onsite normal saline flush 0.9 % injection 3 mL [id number] 02/24/2020 07:00:00 AM EST 3 mL Intravenous active 3 mL , Intravenous, Every 8 hours (scheduled), First dose on Thu02/24/20 at 0700, Pre-op
Rapid push positive pressure flushing shall be performed with a 10 cc normal saline syringe to check the PATENCY of a PIV site prior to any infusion therapy initiation unless resistance is met.
[facility] Medication administered onsite Sucralfate 1000 MG Oral Tablet sucralfate (CARAFATE) 1 g tablet sucralfate (CARAFATE) 1 g tablet 01/18/2020 12:00:00 AM EST active TAKE ONE TABLET BY MOUTH TWICE A DAY ON AN EMPTY STOMACH [facility] Tamsulosin hydrochloride 0.4 MG Oral Capsule tamsulosi n (FLOMAX) 0.4 MG CAPS tamsulosin (FLOMAX) 0.4 MG CAPS 01/18/2020 12:00:00 AM EST 0.4 mg O ral active Take 0.4 mg by mouth daily [facility] Citalopram 40 MG Oral Tablet CITALOPRAM [...] TABLET BY MOUTH TW ICE A DAY [facility] Citalopram 40 MG Oral Tablet citalopram (CELEXA) 40 MG tablet citalopram (CELEXA) 40 MG tablet 01/18/2020 12:00:00 AM EST 40 mg Oral active Take 40 mg by mouth daily [facility] Chlorthalidone 25 MG Oral Tablet chlorthalidone (HYGRO TEN) 25 MG tablet chlorthalidone (HYGROTEN) 25 MG tablet 01/18/2020 12:00:00 AM EST 2 5 mg Oral aborted Take 25 mg by mouth daily [facility] Sucralfate 1000 MG Oral Tablet [Carafate] Carafate 1 GM Lucia fate 1 GM 01/17/2020 12:00:00 AM EST 1.0 {tablet_on_an_empty_stomach} active Carafate 1 GM eCW1 ([facility]) Sucralfate 1000 MG Oral Tablet [Carafate] Carafate 1 GM Lucia fate 1 GM 01/17/2020 12:00:00 AM EST 1.0 {tablet_on_an_empty_stomach} active Carafate 1 GM eCW1 ([facility]) Sucralfate 1000 MG Oral Tablet [Carafate] Carafate 1 GM Lucia fate 1 GM 01/17/2020 12:00:00 AM EST 1.0 {tablet_on_an_empty_stomach} active Carafate 1 GM eCW1 ([facility]) Sucralfate 1000 MG Oral Tablet [Carafate] Carafate 1 GM Lucia fate 1 GM 01/17/2020 12:00:00 AM EST 1.0 {tablet_on_an_empty_stomach} active Carafate 1 GM eCW1 ([facility]) Mirtazapine 7.5 MG Oral Tablet Mirtazapine 7.5 MG 01/16/2020 12:00: 00 AM EST 2.0 {tablets_at_bedtime} active Mirtaza pine 7.5 MG eCW1 ([facility]) 7.5 mg 01/16/2020 12:00:00 AM EST [...] {tablets_at_bedtime} active Mirtaza pine 7.5 MG eCW1 ([facility]) Mirtazapine 7.5 MG Oral Tablet Mirtazapine 7.5 MG 01/16/2020 12:00: 00 AM EST 2.0 {tablets_at_bedtime} active Mirtaza pine 7.5 MG eCW1 ([facility]) Mirtazapine 7.5 MG Oral Tablet Mirtazapine 7.5 MG 01/16/2020 12:00: 00 AM EST 2.0 {tablets_at_bedtime} active Mirtaza pine 7.5 MG eCW1 ([facility]) Mirtazapine 7.5 MG Oral Tablet mirtazapine (REMERON) 7 .5 MG tablet mirtazapine (REMERON) 7.5 MG tablet 01/16/2020 12:00:00 AM EST active TAKE 2 TABLETS BY MOUTH BEFORE BEDTIME [facility] 7.5 mg 01/16/2020 12:00:00 AM EST tablet 30 TAKE 2 TABLETS BY MOUTH BEFORE BEDTIME TAKE 2 TABLETS BY MOUTH BEFORE BEDTIME SOLD: 01/20/2020 [facility] Tamsulosin hydrochloride 0.4 MG Oral Capsule [Flomax] Flomax 0.4 MG Flomax 0.4 MG 12/09/2019 12:00:00 AM EDT 1.0 {capsule} active Flomax 0.4 MG eCW1 ([facility]) 0.4 mg 12/09/2019 12:00:00 AM EDT capsule 30 TAKE ONE CAPSULE BY MOUTH EVERY DAY TAKE ONE CAPSULE BY MOUTH EVERY DAY SOLD: 01/20/2020 [facility] Tamsulosin hydrochloride 0.4 MG Oral Capsule [Flomax] Flomax 0.4 MG Flomax 0.4 MG 12/09/2019 12:00:00 AM EDT 1.0 {capsule} active Flomax 0.4 MG eCW1 ([facility]) Tamsulosin hydrochloride 0.4 MG Oral Capsule [Flomax] Flomax 0.4 MG Flomax 0.4 MG 12/09/2019 12:00:00 AM EDT 1.0 {capsule} active Flomax 0.4 MG eCW1 ([facility]) Tamsulosin hydrochloride 0.4 MG Oral Capsule [Flomax] Flomax 0.4 MG Flomax 0.4 MG 12/09/2019 12:00:00 AM EDT 1.0 {capsule} active Flomax 0.4 MG eCW1 ([facility]) Tamsulosin hydrochloride 0.4 MG Oral Capsule [Flomax] Flomax 0.4 MG Flomax 0.4 MG 12/09/2019 12:00:00 AM EDT 1.0 {capsule} active Flomax 0.4 MG eCW1 ([facility]) Tamsulosin hydrochloride 0.4 MG Oral Capsule [Flomax] Flomax 0.4 MG Flomax 0.4 MG 12/09/2019 12:00:00 AM EDT 1.0 {capsule} active Flomax 0.4 MG eCW1 ([facility]) 0.4 mg 12/09/2019 12:00:00 AM EDT capsule 30 TAKE ONE CAPSULE BY MOUTH EVERY DAY TAKE ONE CAPSULE BY MOUTH EVERY DAY SOLD: 03/22/2020 [facility] Tamsulosin hydrochloride 0.4 MG Oral Capsule [Flomax] Flomax 0.4 MG Flomax 0.4 MG 12/09/2019 12:00:00 AM EDT 1.0 {capsule} active Flomax 0.4 MG eCW1 ([facility]) Tamsulosin hydrochloride 0.4 MG Oral Capsule [Flomax] Flomax 0.4 MG Flomax 0.4 MG 12/09/2019 12:00:00 AM EDT 1.0 {capsule} active Flomax 0.4 MG eCW1 ([facility]) Tamsulosin hydrochloride 0.4 MG Oral Capsule [Flomax] Flomax 0.4 MG Flomax 0.4 MG 12/09/2019 12:00:00 AM EDT 1.0 {capsule} active Flomax 0.4 MG eCW1 ([facility]) Tamsulosin hydrochloride 0.4 MG Oral Capsule [Flomax] Flomax 0.4 MG Flomax 0.4 MG 12/09/2019 12:00:00 AM EDT 1.0 {capsule} active Flomax 0.4 MG eCW1 ([facility]) Tamsulosin hydrochloride 0.4 MG Oral Capsule [Flomax] Flomax 0.4 MG Flomax 0.4 MG 12/09/2019 12:00:00 AM EDT 1.0 {capsule} active Flomax 0.4 MG eCW1 ([facility]) Nortriptyline 25 MG Oral Capsule nortriptyline (PAMELO R) 25 MG capsule nortriptyline (PAMELOR) 25 MG capsule 12/09/2019 12:00:00 AM EDT active TAKE TWO CAPSULES BY MOUTH EVERY DAY BEFORE BEDTIME [facility] atorvastatin 40 MG Oral Tablet atorvastatin (LIPITOR) 40 MG tablet atorvastatin (LIPITOR) 40 MG tablet 12/09/2019 12:00:00 AM EDT 40 mg Oral aborted Take 40 mg by mouth daily [facility] 0.4 mg 12/09/2019 12:00:00 AM EDT capsule 30 TAKE ONE CAPSULE BY MOUTH EVERY DAY TAKE ONE CAPSULE BY MOUTH EVERY DAY SOLD: 12/12/2019 [facility] Tamsulosin hydrochloride 0.4 MG Oral Capsule [Flomax] Flomax 0.4 MG Flomax 0.4 MG 12/09/2019 12:00:00 AM EDT 1.0 {capsule} active Flomax 0.4 MG eCW1 ([facility]) Tamsulosin hydrochloride 0.4 MG Oral Capsule [Flomax] Flomax 0.4 MG Flomax 0.4 MG 12/09/2019 12:00:00 AM EDT 1.0 {capsule} active Flomax 0.4 MG eCW1 ([facility]) atorvastatin 40 MG Oral Tablet ATORVASTATIN CALCIUM 12/09/2019 1 2:00:00 AM EDT tablet 90 TAKE ONE TABLET BY MOUTH EVERY D AY TAKE ONE TABLET BY MOUTH EVERY DAY SOLD: 12/12/2019 [facility] Tamsulosin hydrochloride 0.4 MG Oral Capsule [Flomax] Flomax 0.4 MG Flomax 0.4 MG 12/09/2019 12:00:00 AM EDT 1.0 {capsule} active Flomax 0.4 MG eCW1 ([facility]) Tamsulosin hydrochloride 0.4 MG Oral Capsule [Flomax] Flomax 0.4 MG Flomax 0.4 MG 12/09/2019 12:00:00 AM EDT 1.0 {capsule} active Flomax 0.4 MG eCW1 ([facility]) 25 mg 12/09/2019 12:00:00 AM EDT capsule 60 TAKE TWO CAPSULES BY MOUTH EVERY DAY BEFORE BEDTIME TAKE TWO CAPSULES BY MOUTH EVERY DAY BEFORE BEDTIME SO LD: 12/12/2019 [facility] atorvastatin 80 MG Oral Tablet atorvastatin (LIPITOR) 80 MG tablet atorvastatin (LIPITOR) 80 MG tablet 10/18/2019 12:00:00 AM EDT active TAKE ONE TABLET BY MOUTH EVERY DAY [facility] 75 mg 10/15/2019 12:00:00 AM EDT [...] AY WITH FOOD OR MILK SOLD: 08/10/2019 [facility] 40 mg 08/08/2019 12:00:00 AM [...] SOLD: 02/10/2019 [facility] Multiple Vitamin tablet 6606-6553-11 02/04/2018 12:00:00 AM EST aborted MULTIPLE VITAMIN TABS [facility] Acetaminophen 325 MG / Hydrocodone Ronnie trate 10 MG Oral Tablet HYDROcodone- acetaminophen (NORCO) 10-325 MG per tablet HYDROcodone-acetaminophen (NORCO) 10- 325 MG per tablet 01/30/2015 12:00:00 AM EST aborted NORCO 10-325 MG TABS [facility] Insurance Providers Payer name Policy type / Coverage type Policy ID Covered constitution party ID Covered constitution party's relationship to mello Policy Mello Plan Information MEDICARE BLUE PPO [id number] SP [id number] [employer] MEDICARE [id number] Kristine [id number] INSURANCE COVID-19 COVID Kristine C OVID [employer] MEDICARE Medicare [id number] [employer] B [id number] S [id number] [id number] MEDICARE BLUE PPO [id number] SP [id number] MEDICARE [id number] SP [id number] MEDICARE [id number] SP [id number] [place] PPO [id number] SP [id number] SALAS MAINE [id number] SP [id number] [facility] [id number] S [id number] [facility] [id number] SP [id number] SALAS MEDICARE [id number] SP [id number] [facility] O [id number] S [id number] [facility] [id number] SP [id number] ANSI-Medicaid [id number] ANSI-Medicaid [id number] ANSI-Medicaid [id number] ANSI-Medicaid [id number] ANSI-Medicaid [id number] ANSI-Medicaid [id number] [facility] [id number] SP [id number] [facility] I [id number] Self [id number] [facility] COMMUNTY PLAN [id number] 18 [id number] ANSI-Medicaid [id number] ANSI-Medicaid [id number] ANSI-Medicaid [id number] ANSI-Medicaid [id number] ANSI-Medicaid [id number] ANSI-Medicaid [id number] ANSI-Medicaid [id number] ANSI-Medicaid [id number] ANSI-Medicaid [id number] ANSI-Medicaid [id number] ANSI-Medicaid [id number] ANSI-Medicaid [id number] [place] [employer] [id number] Self [id number] [employer] [facility] Health Maintenance Organization [place] [id number] Self [id number] ANSI-Medicaid [id number] ANSI-Medicaid [id number] ANSI-Medicaid [id number] ANSI-Medicaid [id number] ANSI-Medicaid [id number] ANSI-Medicaid [id number] ANSI-Medicaid [id number] ANSI-Medicaid [id number] ANSI-Medicaid [id number] ANSI-Medicaid [id number] ANSI-Medicaid [id number] ANSI-Medicaid [id number] ANSI-Medicaid [id number] ANSI-Medicaid [id number] ANSI-Medicaid [id number] ANSI-Medicaid [id number] ANSI-Medicaid [id number] ANSI-Medicaid [id number] ANSI-Medicaid [id number] ANSI-Medicaid [id number] ANSI-Medicaid [id number] ANSI-Medicaid [id number] ANSI-Medicaid [id number] ANSI-Medicaid [id number] [facility] [id number] ANSI-Medicaid [id number] ANSI-Medicaid [id number] ANSI-Medicaid [id number] ANSI-Medicaid [id number] ANSI-Medicaid [id number] ANSI-Medicaid [id number] ANSI-Medicaid [id number] ANSI-Medicaid [id number] ANSI-Medicaid [id number] ANSI-Medicaid [id number] ANSI-Medicaid [id number] ANSI-Medicaid [id number] [place] [place] [id number] SP [id number] MEDICAID [id number] SP [id number] UNHC COMMUNITY PLAN MCDHMO [id number] SP [id number] MEDICAID [id number] SP [id number] MEDICAID M [id number] MEDICAID [id number] SP [id number] [facility] Health Maintenance Organization (HMO) [id number] Self [id number] MEDICAID M [id number] S [id number] UNHC COMMUNITY PLAN MCDHMO UNAVAILABLE SP UNAVAILABLE SALAS MAINE [id number] SP [id number] [facility] [employer] [id number] Self [id number] SALAS MAINE UNAVAILABLE SP U NAVAILABLE SALAS [id number] SP [id number] SALAS [id number] SP [id number] [facility] [employer] [id number] Self [id number] [facility] [employer] [id number] Self [id number] SALAS CARE [place] O [id number] S [id number] UNHC COMMUNITY PLAN MCDHMO [id number] SP [id number] MEDICAID M [id number] S [id number] [facility] Health Maintenance Organization (HMO) Self [facility] I [id number] Self [id number] OTHER 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 O [id number] S [id number] MEDICAID M [id number] Self [id number] SELF PAY UNAVAILABLE SP UNAVAILA BLE TRAVELERS W/C [id number] SP [id number] TRAVELERS W/C [id number] SP [id number] Problems, Conditions, and Diagnoses Code Display Name Description Problem Type Effective Dates Data Source(s) I35.1 Nonrheumatic aortic valve insufficiency Nonrheumatic aortic valve insufficiency [id number] 02/28/2020 12:00:00 AM [facility] I35.0 Aortic valve stenosis Aortic valve stenosis [id number] 02/17/2020 12:00:00 AM [facility] K64.4 [id number] External hemorrhoids Problem 01/16/2020 12:0 0:00 AM EST [facility] ([facility]) N40.1 [id number] Benign prostatic hyp erplasia with lower urinary tract symptoms Problem 12/09/2019 12:00:00 AM EDT [facility]C ([facility]) E66.09 [id number] Other obesity due to excess calories Prob jessa 07/21/2019 12:00:00 AM EDT [facility] ([facility]) Z68.30 [id number] Body mass index (BMI) 30.0-30.9, adult Pr oblem 07/21/2019 12:00:00 AM EDT eCW1 ([facility]) Z13.220 [id number] Lipid screening Problem 07/21/2019 12:00:00 AM EDT [facility] ([facility]) I10 Essential hypertension Essential hypertension 60601417 03/29/2019 12:00:00 AM [facility] I35.1 Nonrheumatic aortic (valve) insufficienc y Nonrheumatic aortic (valve) insufficienc Diagnosis 04/04/2020 03:52:47 PM [facility] U07.1 COVID-19 COVID-19 Diagnosis 04/02/2020 09:34:[address] [facility] E78.5 Hyperlipidemia, unspecified Hyperlipidemia, unspecifie d Diagnosis 03/15/2020 09:31:23 AM EST [facility] I35.0 Nonrheumatic aortic (valve) stenosis Nonrheumati c aortic (valve) stenosis Diagnosis 03/15/2020 09:31:23 AM EST [facility] I73.9 Peripheral vascular disease, unspecified Peripheral vascular disease, unspecified Diagnosis 03/15/2020 09:31:23 AM EST [facility] I10 Essential (primary) hypertension Essential (primary) h ypertension Diagnosis 03/15/2020 09:31:23 AM EST [facility] F17.210 Nicotine dependence, cigarettes, uncompl icated Nicotine dependence, cigarettes, uncompl Diagnosis 03/15/2020 09:31:23 AM EST [facility] Surgeries/Procedures Procedure Description Date Indications Data Source(s) ECG ROUTINE ECG W/LEAST 12 LDS W/I&R POCT AMB EKG Routine 03/15/2020 11:12 AM EST Aortic valve stenosis, etiology of cardiac valve disease unspecified 03/15/2020 04:12:00 PM EST Aortic valve stenosis, etiology of cardi ac valve disease unspecified [facility] Aortic valve stenosis, etiology of cardi [...] stenosis, etiology of cardiac valve disease unspecified [facility] Cigarette smoker Essential hypertension Hyperlipidemia, unspecified hyperlipidem ia type Peripheral vascular disease Aortic valve stenosis, etiology of cardi ac valve disease unspecified ECG ROUTINE ECG W/LEAST 12 LDS TRCG ONLY W/O I&R ECG 12-LEAD Routine 02/24/2020 6:33 AM EST 02/24/2020 11:33:08 AM EST [facility] BLOOD COUNT COMPLETE AUTOMATED CBC STAT 02/24/2020 6:31 A M EST 02/24/2020 11:31:00 AM EST [facility] BASIC METABOLIC PANEL CALCIUM TOTAL BASIC METABOLIC PANEL STAT 02/24/2020 6:31 AM EST 02/24/2020 11:31:00 AM EST [facility] ECG ROUTINE ECG W/LEAST 12 LDS W/I&R POCT AMB EKG Routine 02/09/2020 2:34 PM EST Aortic valve stenosis, etiology of cardiac valve disease unspecified 02/09/2020 07:34:00 PM EST Aortic valve stenosis, etiology of cardi ac valve disease unspecified [facility] Aortic valve stenosis, etiology of cardi ac valve disease unspecified Arterial Infusion Thrombolysis Other Than Carotid 05/02/2019 12:00:00 AM EDT [facility] ([facility], ) REVSC OPN/PRQ FEM/POP W/STNT/ANGIOP SM VSL 05/02/2019 12:00:00 AM EDT [facility] ([facility], ) REVSC OPN/PRQ TIB/DANNI W/ANGIOPLASTY UNI 05/02/2019 12 :00:00 AM EDT [facility] ([facility], ) Angiography Extremity Unilateral 05/02/2019 12:00:00 A M EDT [facility] ([facility], ) Moderate Sedation Services; Same Phys Intl 15 Mins; PT >= 5 Years 05/02/2019 12:00:00 AM EDT [facility] ([facility] Office Visit, Est Pt., Level 3 PC 04/07/2019 12:00:00 AM EST eCW1 ([facility]) Office Visit, Est Pt., Level 2 FC 04/07/2019 12:00:00 AM EST eCW1 ([facility]) Results ID Date Data Source [id number] 04/02/2020 01:01:10 PM EST [facility] Name Value Range Interpretation Code Description Data Debbie rce(s) Supporting Document(s) POC SOURCE [facility] PUNCTURE SITE [facility] O2 THERAPY [facility] PAUL TEST [facility] POC PH 7.46 pH (7.35-7.45) H [facility] POC PCO2 35.4 MMHG (32.0-48.0) [facility] POC PO2 81 MMHG (83-108) L [facility] POC SAT O2 97 % (95-99) [facility] POC BASE EXCESS 2 MMOL/L (0-3) [facility] POC HCO3 25.3 MMOL/L (21.0-29.0) [facility] POC TOTAL CO2 26 MMOL/L (23.0-32.0) [facility] PERFORMED BY [facility] STAFF ID Date Data Source [id number] 04/02/2020 11:55:00 AM EST [facility] [employer] [facility] ROUT[facility] PA and [...] rce(s) Supporting Document(s) ID Date Data Source [id number] 04/02/2020 11:44:00 AM EST [facility] [employer] [facility] [employer] [facility] ULTR ASOUND CAROTID DUPLEXCLINICAL HISTORY: [...] performed using the NASCET method.Dictated by: DANE DSA M.D. on 04/02/2020lectronically Signed by: DANE DAS M.D. on 04/02/2020 01:39 PMTranscribed by: teodora on 04/02/2020 01:39 PMCDS G code: ,CDS Modifier: ,cc: Name Value Range Interpretation Code Description Data Debbie rce(s) Supporting Document(s) ID Date Data Source [id number] 04/02/2020 11:35:15 AM EST [facility] Name Value Range Interpretation Code Description Data Debbie rce(s) Supporting Document(s) EKG [facility] MZJNKr4hYyWGYxQyq9JfQkPiQGMlSB6gmgp8F6P3dYYwB4IblOIor8kvO6WhH5IfEIQuRPZYYQ7JiCAt jb2 [file] iQ5L+hjuiI5B+yoksK9D+igmnC1N+lbuqJ5P+vhzdg2Y+arjvw7U+hbljg1P+suunP8Z+kkscE0R+vgw iU5M+duocX2Imu/gT2HXO6nFmNdsIfcYeTvaumeCyF kffybRoUkfjybRpUkfnybRqUkfrybRrUkfvybRsUn9+0VEPT++CeXxtz4hMlM7be3+BeDOum3hCeKPgi 4+XqFOhv6xToBcnl3+DwMzsg0yIvBhai7+HvTxgc5rVkQ2je3+AaOHpf7jA2MPmg7+P7WDlx3eV2Astx 5+Q8Ihej0rI2Yuzk9+B6Bqqc6mA9L7ww5+X2HQbO8d UKILlD4+OLEDiK6uKJPknR7+BZUlpH9xFXVhyI7+VGMuyA6qBCE4lW9+UKY/lD/+UKY/lD/+UKY/lD/+ UKY/lD/+UKY/lD/+UKY/lD/+UKY/lD/+UKY/lD/+UKY/lD/+UKY/lD/+UKY/lD/+UKY/lD/+UKY/lD/+ UKY/lD/+UKY/lD/+UKY/lL/wX8WH0jpBN4Pj/t0aTV ik+egZlmm+6pIslql7HdJVsj4vWRSb6ouuV2XaSa3Epn+UP/5Qpj+UP/5Qpj+UP/5Qpj+UP/5Qpj+UP/ 5Qpj+UP/5Qpj+UP/5Qpj+UP/5Qpj+UP/5Qpj+UP/5Qpj+UP/5Qpj+UP/5Qpj+UP/5Qpj+UP/5Qpj+UP/ 5Qpj+UP/5Qpj+UP/5Qpj+UP/5Qpj+UP/5Qpj+UP/5Q pj+UP/5Qpj+UP/5Qpj+UP/5Qpj+UP/5Qpj+UP/5Qpj+UP/5Qpj+UP/5Qpj+UP/5Qpj+UP/5Qpj+UP/5Q pj+UP/5Qpj+UP/5Qpj+UP/5Qpj+UP/5Q/UXDl/CL01MSW4PVEf8bAEaryL6b3S5QzEI0dqHA0LMIF6ZB Dd52AuY+vdlg8dCpZ2K+kuoU8sUqR9F+giuK7yUuD5 E+mpaY8rFoU6A+jvvY1xQfS0R+fusN6cElD3H+fvuD0sUrO6R+wxsZ6hVgD8G+ahqD2dEkI9K+lfo06t OoT6M+jpa99cJoY9G+kmt60mMmS5Z+TPP26uMgR8U+tzt98tMzC0i+ndi20jZvA4k+lup38qRrP9h+nf q63vNjL8f+detF8fFzc6N+g/wE8wEnp0R+g/oM6jOo z6A+g/xP5oGda5J+g/oT4eTfx1S+k/iA4rTfv4Z+k/jF8rWuf7U+k/oT3qXyo6R+k/uf6gElr4B+i/os 5uNsb1B+i/ij5pBob7P+i/qa3eRud8C+i/ikkwvbom6kNUfvGv7XDkcCxrXjmcNuhSJcKCiZJ+sT5tYn AA1YmX5qVG7+Fo3W8OcRhnO3P2P/CRSZYa7A8XsBnd T0S0G/7YpK2uC1L0F9yA2U0M7KxHQS9PXRgMOJ9ESZgMGG7SMYmIMQ6LVObIVZ0SNMaVLD8AICeQVM0X MMnIwI9YyDmQfX8AvRxWwQ2WtZvEbN5QuZvCqH4QlRxLlR6SuBkK8O4C1GnB9J5M5SkA4W4F9QuCYF6R LTdEJT5QSZqPXJ3HWJtBEB2XJYqRBT2TPJdUFJ2FFS fRCK9XWAqFrS3AoJfJeO7KqEpJjE2FmVxOdP3IjKhFyI7CmLeAaS81prvoL4ASkdhu/m7Cjw6qyoH/N1 N8yqYhDEHP8BkOxPzhMcihOheLslwJubtCDvDomtdRnqqNsZGRgJ93XRW1O1BJPXDS8O7PKHA1E59eCI A0+N+NTAUyM+NaLZxR1ZXMZtConSeI0yk1C/vfywm5 9PPz/r1NulKFFVe5TBI/nYSKKRpI+VJJpJ+pvUgqAlv3IhtutkJ6lM7ah8xuxJKdtAbXHiWvVWZeK+Suggestion Clerk [file] SFE0GsEORVYMdahmyLkdu4J84cwSKDSISw3UWXKT1m ScjxgpYagI1p1ov5L4WOKTzSlHDGiBCRXrusmhY+4OwHzq/R2RO9/IPo4LsCepqXpNBIcrlxegpMwIeq Ypvg3l1H4YVuC1kPkRbEbkqUiRznWcEK8TLzsbNUH+cihmmhgwu1Mz5k7uLAP5zpBUGPKEjQkryifCK7 MNHe8YcI2dySloe+paaUbkk01ydUjWFmMHc5AnXyZJ axZMo+7FqvluCBSID6DOzoNlx8W4evoEdhOKXRnoNnR12dKAKqVQAyAPXcN63thqCpZK0waTRYzfdeYP MqrTzLV4fS+il0jGXCXm5eAwViYJYKRzICfiWS56Dwt1y9nSc3eGsCwcSUBuzKKQCLWuo1HeB1QjefjR jICy1WtcQDaLQsHDu0K0xskoxngHLAla7WMLIB5ZXS rnDsK7KlDH6md3ImhcX55caOp6cQs0yI6kAERHY+rT5NsJ7YRTlWhNQ6fJP5nzrJEYH+32I8r9v8h6QR LinWIBJWLeRau6erGiPbUNvucurpu+WPnJd2ZEcdeD7rqiaUgN52iwS25pZDTvhRpXFAgz9nbeTzZIwY FvrBOHLmACXXuNQBZZAaUCIdpheBU5ak1UAzDjfdRU Fdgt2iDDzMRwWKZXC0sOlGEE/9X//X//yLfZYIo/2f/+ff//F/t//z3//8v//+1/8oL/og8AAc6N91W+ Xl/sPh/PJTli+snRtKpUfiQdcLas8rxGBzUgxJcMSso92f7PZ6Xlm0qYP7lB8SrJLaDu+0J3aCijkjTo 3/MÓNICA/7Lr2Ug04aeSQ5R5mP/tZOCYn24X06kO+Ul/tv 3Bvzq77R/Bsho2w/qzi5UAj+qcS/36OcI+R3dhQT2jUNwdplDaMzo4beNREGO9YZehe6ujr1kRZmgh8v 4eg9fcfI9qm03tTjUF786oy1g/792chuPR1n8KmUET0sr9MlxZejV9Y9oi3QBdt4Ye+qn5/e+3ufqMOf 2vsb+tNv0zn6kbMElk5boh/3udEK//7GlXTu/8N/sinhala [file] VeMoh2MPrmIEpwJMVYIk== ID Date Data Source [id number] 04/02/2020 11:28:30 AM EST [facility] CorporationPATIE NT INFORMATIONPatient MRN Name Date of Age Gend*PT [id number] Hiral Shi 1960 60 years M OPPT Location Admission Date/Time Visit ID Attending Provider --- --- --- Oneil Genao MD([id number]) EPI ID CSN Admitting Provider [id number] ---HISTORY PHYSICALName: Hiral Shi : 1960 Sex: [...] by his PCP.Subsequently he was referred to managed care nurse Dr. Villaseñor. On 02/13/2020 heunderwent TTE which [...] moderate (CAROLA 1.3cm2, mean gradient 23mmHg) - [facility] Echocardiogram 01/08/2016 Normal LV size with mild [...] Take 15 mg by mouth nightly as uleqvq76/7/20 Historical Provider, MDnortriptyline (PAMELOR) 25 MG capsule Take 50 mg by mouth nightly as hhlide49/30/20 Historical Provider, MDpantoprazole (PROTONIX) 40 MG tablet [...] warm and dry.HEENT: He is normocephalic, atraumatic. [place] conjunctivae. Anicteric sclerae.Pupils are equal, round, reactive [...] hepatosplenomegaly. Negative CVAT.GENITAL/RECTAL: Deferred.MUSCLE/SKELETAL: Strength is 5/5. Synthetic Staple Extruder are equal. Spinal cord stimulatorintact to lower [...] parts of this document, were dictated using [employer] software. A reasonable attempt at proofreading has beenmade to minimize errors. Please call with any questions or corrections. Name Value Range Interpretation Code Description Data Debbie hernan(s) Supporting Document(s) ID Date Data Source [id number] 04/02/2020 10:01:02 PM EST [facility] SPEC EXP DATE 04/07/2020ATI ENT ABO/Rh A POSITIVEANTIBODY SCREEN NEGATIVETESTING SITE PERFORMED AT [address] [place] [id number] Name Value Range Interpretation Code Description Data Debbie rce(s) Supporting Document(s) TYPE AND SCREEN [facility] ID Date Data Source [id number] 04/02/2020 07:01:34 PM EST [facility] Name Value Range Interpretation Code Description Data Debbie rce(s) Supporting Document(s) HEMOGLOBIN A1C @ 5.9 % (4.0-6.0) [facility] Performed using Siemens Lund immunoassa y.Care must be taken when interpreting RuG6wpbwxotz in patients with a hemoglobin variantor decreased erythrocyte lifespan. Values 5.7 - 6.4% suggest prediabetes.Values >=6.5% are diagnostic for diabetes.REFERENCE: DIABETES CARE 2018: 41(S13-S27). EST AVERAGE GLUCOSE 123 mg/dL [facility] ID Date Data Source [id number] 04/02/2020 06:39:07 PM EST [facility] Name Value Range Interpretation Code Description Data Debbie rce(s) Supporting Document(s) ROOM TEMP AB SCREEN [facility] ROOM TEMP AB SCREEN NEGATIVE ID Date Data Source [id number] 04/02/2020 06:16:26 PM EST [facility] Name Value Range Interpretation Code Description Data Debbie rce(s) Supporting Document(s) NT PRO BNP 163 pg/mL (0-125) H [facility] ID Date Data Source [id number] 04/02/2020 06:16:26 PM EST [facility] Name Value Range Interpretation Code Description Data Debbie rce(s) Supporting Document(s) SODIUM 134 mmol/L (136-145) L [facility] POTASSIUM 4.8 mmol/L (3.6-5.2) [facility] CHLORIDE 97 mmol/L (100-108) L [facility] CO2 29 mmol/L (22-31) [facility] ANION GAP 8 mmol/L (7-16) [facility] UREA NITROGEN 12 mg/dL (7-24) [facility] CREATININE 0.89 mg/dL (0.80-1.30) [facility] BUN/CREAT RATIO 13.5 RATIO (10.0-20.0) [facility] GLUCOSE 99 mg/dL (70-99) [facility] CALCIUM 9.5 mg/dL (8.4-10.2) [facility] TOTAL PROTEIN 7.1 g/dL (6.4-8.2) [facility] ALBUMIN 4.2 g/dL (3.2-4.5) [facility] GLOBULIN 2.9 g/dL (2.7-4.3) [facility] ALB/GLOB RATIO 1.4 RATIO [facility] ALKALINE PHOSPHATASE 139 U/L (45-117) H [facility] BILIRUBIN,TOTAL 0.4 mg/dL (0.0-1.0) [facility] PLEASE NOTE:Total bilirubin results may be falselyelevated in patients taking Eltrombopag. AST (SGOT) 20 U/L (11-39) [facility] ALT (SGPT) 27 U/L (12-78) [facility] GFR >60 ml/min/1.73m2 (>59) [facility] GFR ( AMER) >60 ml/min/1.73m2 (>59) [facility] GFR INTERPRETATION [facility] --NORMAL KIDNEY FUNCTION OR MILD DISEASE - GFR >OR= 60CHRONIC KIDNEY DISEASE - GFR 15 - 59RENAL FAILURE - GFR <15 Est. GFR calculation based on the MDRDstudy equation, which assumes a steadystate for creatinine. Est. GFR should notbe used for medication dosing. ID Date Data Source [id number] 04/02/2020 04:34:24 PM EST [facility] Name Value Range Interpretation Code Description Data Debbie rce(s) Supporting Document(s) WBC 6.1 10*3/uL (4.1-11.0) [facility] [place] RBC 3.38 10*6/uL (4.60-6.10) L [facility] HGB 8.3 g/dL (13.5-18.0) L [facility] HCT 25.5 % (41.0-53.0) L [facility] MCV 75.5 fL (80.0-95.0) L [facility] MCH 24.5 pg (27.0-32.0) L [facility] MCHC 32.5 g/dL (32.0-36.0) [facility] RDW 16.8 % (10.5-14.5) H [facility] PLT 513 10*3/uL (150-450) H [facility] MPV 6.5 fL (7.1-10.7) L [facility] NEUT % 72.2 % (35.0-75.0) [facility] LYMPH % 16.7 % (16.0-52.0) [facility] MONO % 9.8 % (0.0-8.0) H [facility] EOS % 0.4 % (0.0-5.0) [facility] BASO % 0.9 % (0.0-4.0) [facility] NEUT # 4.4 10*3/uL (1.8-7.7) [facility] LYMPH # 1.0 10*3/uL (1.2-4.8) L [facility] MONO # 0.6 10*3/uL (0.0-0.8) [facility] Eosinophils [#/volume] in Blood by Automated count 0.0 10*3/uL (0.0-0 .5) [facility] BASO # 0.1 10*3/uL (0.0-0.2) [facility] ID Date Data Source [id number] 04/02/2020 04:28:10 PM EST [facility] Name Value Range Interpretation Code Description Data Debbie rce(s) Supporting Document(s) PT 10.4 s (9.2-11.9) [facility] INR 1.00 [facility] SUGGESTED THERAPEUTIC RANGES USING INR F ORSTABILIZED ANTICOAGULATED PATIENTS:STANDARD DOSE THERAPY INR 2.0-3.0 DVT, PE, PREVENT DVT OR EMBOLISMHIGH DOSE THERAPY INR 2.5-3.5 PREVENT EMBOLISM FROM MECHANICAL HEART VALVE ID Date Data Source [id number] 04/02/2020 04:28:10 PM EST [facility] Name Value Range Interpretation Code Description Data Debbie rce(s) Supporting Document(s) APTT 21.5 s (22.0-34.3) L [facility] ID Date Data Source [id number] 04/02/2020 07:35:56 PM EST [facility] Name Value Range Interpretation Code Description Data Debbie rce(s) Supporting Document(s) COLOR [facility] APPEARANCE [facility] SPEC GRAV URINE 1.008 (1.003-1.030) [facility] PH URINE 7.0 (5.0-7.5) [facility] LEUK ESTERASE (NEG) [facility] NITRITE URINE (NEG) [facility] PROTEIN URINE (NEG) [facility] GLUCOSE URINE (NEG) [facility] KETONE URINE (NEG) [facility] [place] UROBILINOGEN 0.2 mg/dL (0-1.0) [facility] [place] BILIRUBIN URINE (NEG) [facility] BLOOD/HGB URINE (NEG) [facility] ID Date Data Source [id number] 04/03/2020 03:16:07 PM EST [facility] SPECIMEN DESCRIPTION MIDSTREAM UR INE,CLEAN CATCHCULTURE RESULTS NO GROWTHREPORT STATUS FINAL 04/03/2020 Name Value Range Interpretation Code Description Data Debbie rce(s) Supporting Document(s) ID Date Data Source [id number] 04/03/2020 11:20:01 AM EST [facility] Name Value Range Interpretation Code Description Data Debbie rce(s) Supporting Document(s) SPECIMEN DESCRIPTION [facility] STAPH SCREEN RESULTS (ONEGSA) [facility] COMMENT [facility] GENE TO DETECT STAPH AUREUS. (2) RT-P CR WAS PERFORMED FOR THE mecA AND [employer] GENES TO DETECT METHICILLIN RESISTANCE IN STAPH AUREUS. ID Date Data Source [id number] 04/03/2020 06:08:42 PM EST [facility] Name Value Range Interpretation Code Description Data Debbie rce(s) Supporting Document(s) SARS-COV-2 RAD [facility] Not DetectedReference range: Not Detecte d This nucleic acid amplification test was developed and its performance characteristics determined by [employer]. Nucleic acid amplification tests include RT-PCR and [...] detected) result in this assay. Performed At: [facility] [address] [place], [place] [id number] Markie Rouse PhD Ph:[phone] ID Date Data Source [id number] 02/24/2020 03:01:28 PM EST [facility] INFORMATIONPatient MRN Name Date of Age Gend*PT [id number] Hiral Shi 1960 59 years M ---PT Location Admission Date/Time Visit ID Attending Provider --- --- --- --- EPI ID CSN Admitting Provider [id number] ---Addended by: ISAC JONES on: 02/24/2020 03:01 PM Modules accepted: Orders, SmartSet Name Value Range Interpretation Code Description Data Debbie rce(s) Supporting Document(s) ID Date Data Source [id number] 02/24/2020 02:49:19 PM EST [facility] INFORMATIONPatient MRN Name Date of Age Gend*PT [id number] Hiral Shi 1960 59 years M HOPPT Location Admission Date/Time Visit ID Attending [id number] 02/24/20 0614 --- --- EPI ID CSN Admitting Provider [id number] Marla Marino MD([id number])Cardiothoracic Surgery ConsultMichaeelvie StallworthN: [id number] for consult: aortic valve stenosisAssessment/Plan:Active Problems: Peripheral [...] moderate (CAROLA 1.3cm2, mean gradient 23mmHg) - [facility] Echocardiogram 01/08/2016 Normal LV size with mild [...] on phone: None Gets together: None Attends yarsani service: None Active member of club or [...] rce(s) Supporting Document(s) ID Date Data Source [id number] 02/24/2020 10:13:33 AM EST [facility] Name Value Range Interpretation Code Description Data [facility] rce(s) Supporting Document(s) &PDF [facility] [place] EALZWg4yBsLIHwUi66/NGWhwWCTdi3RhZRvpLIk2OXawCXXvK8OwpJkmCLpUF5WBAliVVKJEYTJQHR4m oRX [file] ICAgICAgICAgICAgICAgICAgICAgICAgICAgICAgIC VoFBGmHBUsBRCvYFVtFZAlEMPjWHJvXPGbQX5KVQHxFKReKAGmAGZtATSdJWEmCJTkGKQtVIXqEUSbNQ AgICAgICAgICAgICAgICAgICAgICAgICAgICAgICAgICAgICAgICAgICAgICAgICAgICAgICAgICAgIC HqNRCsQECiUV7GNLVbWCHgISLbVHJuTUGqQKLeBLDf ICAgICAgICAgICAgICAgICAgICAgICAgICAgICAgICAgICAgICAgICAgICAgICAgICAgICAgICAgICAg LSLxKDYoKYSaBYYzNWNrRWMvHW3CLDHlWIMtJRFxUHRmKWMuXWVmJDAnXTCwPZOuBAVoSLUpQANxGHDv ICAgICAgICAgICAgICAgICAgICAgICAgICAgICAgIC AxRSFdCHFsTMWlGUWyPQWaCEXqJEWvQPPbPULsJX7ZPVDgUQBmIRUfIGQdUBIfJPXwXAHlKNTeNFAaEN AgICAgICAgICAgICAgICAgICAgICAgICAgICAgICAgICAgICAgICAgICAgICAgICAgICAgICAgICAgIC FlOFIlLOSbVMDeBU6EGKGyPTZtWYPwHIDlYWRnGBBr ICAgICAgICAgICAgICAgICAgICAgICAgICAgICAgICAgICAgICAgICAgICAgICAgICAgICAgICAgICAg MUFnJJWrFSYxYLUdGZNqZAHdDSArIM6QHKStOEUgOYIeRSKgUEUnJZLdASHvCZLgTPBvMDKeWLLkLXOz ICAgICAgICAgICAgICAgICAgICAgICAgICAgICAgIC VeKUEzCTAlCDJnEEYoECMxKGXtBRZqTMOtXCNcTHLcZZ5GVTMbRBHjHBXrPSByYGMrCRXgECPzGUWgTV AgICAgICAgICAgICAgICAgICAgICAgICAgICAgICAgICAgICAgICAgICAgICAgICAgICAgICAgICAgIC HpVGNgFHSaMKSzIIMfGT2RYRSuKYZuLICzHPZpGFAo ICAgICAgICAgICAgICAgICAgICAgICAgICAgICAgICAgICAgICAgICAgICAgICAgICAgICAgICAgICAg TROaWWRrLHBjJPPbHYVtGCHuBUSnSYWvOI9OUJZwQIXuKSYbCNXdYCHnXQHyIYPfZGZeEXGcDEQkFUVt ICAgICAgICAgICAgICAgICAgICAgICAgICAgICAgIC OwGWQoUMAgJDMzQLFxATPiLIOmTHSaWXQpJUKmIITmJVOrXC5ZRV17wPXjr5E2GJVsVN7jhtg/Pg0KDQ zsdhBimMNyDW0QWiLlBK2vpf1VQiCsUX1vtx0YZDuIFeTwI5G1bLQwIVMfNHNIKjCvC04oNOyfBi25XA wgVLDaQvWjLNh3Nl0EQeUfU2csJPErMtE5CIUmOtF2 JKUjDvW0CISlKjVkBKPgMMIaPS3WHQJjK656yfUbCG1IGg4YBgRxXH1ltl6PYuHzWAHzCytYTzl6YGps LD1WhNDapLYhAmFlRISPBrFwS2lzb5DjIfxoZSQEFSinZA2Bg9UsuGFtWMi+Vr8QBE3fc2XgRVurDyRz RO4qqa5FJAqKUhBwZ1ZvcLaqGDzcvRnhaaZmQW5IMG QaEMBtoVYwOWotHASMFI8DXYllOVF5QcdcprUbzWYzBCigMV8GRWOripBuBxLkVVKVIWn+Lc7MJX1zs0 WfHVyzVQYtKF9kyb5QMOlEZkJjV4X7wICfJ0T9TPikZs7SCFVbBGBpFzUjHWDPOHwfGB8UXN7ajbN8EG 1CvPAxEODsKHOgpYBhLMu2A15ebRXjVEnrOG0NEQF+ Krysta+Zm5IUCBdJSBzIGCxDgAjCXASLkHdO9QqF7XTs6DzB1GzWK03sRbzdxXgDRfqGG9FME4eCFWbBCTN GL6VzKEslX0aqxWiYbJwHLUOUzRdE89bnPPmZQTmNHK6DLDbUt9FDWFaH6NclwZsbTllkfKwIEUxCOHN EE5IJXqpmnDxtAHatSnzFC22qSpyWM3GRp5WHiLiAS 2elx2EnXIkEx8FWVQnWV1PKASvYTKtTKPyKVP5YDBzMrIwJHaoXKQoMSNhCDS7NBOhNQXcDR7BHmNsVB UlGZH5QZFnMQDdKNNntg3MLQOuTUJ3ZOsqWAIbYWDnVEDfHXkbAFClJNBaZUhaFAQjIWIlSA4XAmTvSA SlERRgSeinVIVeESKpie2GWBDpAGOwGzGeRKFiOCTw DVXbEZmrXDHnBNF1UPlvSRDdARRcCP4FKcLcAJYpFJTtJcSfGSIwFPXsir8GIKDuKYAmOug0MqShCDVp OQJcADbsSKGeKTK0BSViAHQmMKMfDG2QDaRdTNRlDFncWkwbYDApIXPjma0DYDDmWBWqNXXuANFbUOUo RYFnLJxjMBZaDUG2Xpw1UYYeXNZfOB7ETcGlSMNvTV l2BCYjKOWiXHYozv7TTAUlCXJiLXw3UGZpYWVpGSHkRQhyWQNoPIKrJqMePQZbEUVgVY9EImOrOKDlUF U3HyLpDOAiDTJble0FITEmSTOmQDXpZjZgFJUbKAZzQOjkXHFmEIQ7ZMY2MBPoLRZrLL6ELsIrTMFhMT C1XpLeNTXgXPCnpy6GJVBsYWGyNdU7WWViBKBmIZYt GDfdDFWrTUH9DKJcIXZaGHRyPU3DHxBzXDRvAqewUKXzJNVySLCfjc6YHJIxRKT6Fnn5JwTyLZMxKVKt PEtnWLAuOYC5NvnzRWUjPIEvHS1JCvZcCWClPHs2QprhTNXvLUQxml6RCHYuWBE7KBy8AHPpIFRyOCWo TCotWMSjUDA3OXu2KCLdELUaUN7MHoAdEXsfZJIYUd w6JEvdW7n6BHZsYC2FK9Ufx9BvAgfvFJASSWzsDA2zvzHjEDIwJc8MB4gSBma2F9G8JwA7UYI8JCjoTX a0AXJ3WirfASShOCAkP9M5LW5fZWg1XIfcJmwcUzWtPbN7XJf9VWN6MKWgNyAcXXEhGidqKoWcYE9DZo 6FErJ0COK2uTKjBy7QMXwoJFLQDkCaOM0UQLz= ID Date Data Source [id number] 02/24/2020 06:53:35 AM EST [facility] Name Value Range Interpretation Code Description Data Debbie rce(s) Supporting Document(s) EKG 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/P+/nhC/w4yZZwplRifzw37Tx5+chyG85ql336csI3drvxFUUOEUSK+aqQJEO+EqCXcg3YXUGns9 [file] ycFUO6Nh8EyaCoDKVvGUIYNp5Ke294EFRjJWNPEev+QrygiLQluWbrXEFNRMT6DTBTPZUHN3J= ID Date Data Source [id number] 02/24/2020 07:33:30 AM EST [facility] Name Value Range Interpretation Code Description Data Debbie rce(s) Supporting Document(s) SODIUM 137 mmol/L (136-145) [facility] POTASSIUM 4.5 mmol/L (3.6-5.2) [facility] SLIGHT HEMOLYSIS CHLORIDE 101 mmol/L (100-108) [facility] CO2 26 mmol/L (22-31) [facility] ANION GAP 10 mmol/L (7-16) [facility] UREA NITROGEN 14 mg/dL (7-24) [facility] CREATININE 0.94 mg/dL (0.80-1.30) [facility] BUN/CREAT RATIO 14.9 RATIO (10.0-20.0) [facility] GLUCOSE 106 mg/dL (70-99) H [facility] CALCIUM 9.2 mg/dL (8.4-10.2) [facility] GFR >60 ml/min/1.73m2 (>59) [facility] GFR ( AMER) >60 ml/min/1.73m2 (>59) [facility] GFR INTERPRETATION [facility] --NORMAL KIDNEY FUNCTION OR MILD DISEASE - GFR >OR= 60CHRONIC KIDNEY DISEASE - GFR 15 - 59RENAL FAILURE - GFR <15 Est. GFR calculation based on the MDRDstudy equation, which assumes a steadystate for creatinine. Est. GFR should notbe used for medication dosing. ID Date Data Source [id number] 02/24/2020 06:53:36 AM EST [facility] Name Value Range Interpretation Code Description Data Debbie rce(s) Supporting Document(s) WBC 7.4 10*3/uL (4.1-11.0) [facility] RBC 3.68 10*6/uL (4.60-6.10) L [facility] HGB 9.7 g/dL (13.5-18.0) L [facility] HCT 29.1 % (41.0-53.0) L [facility] [place] [address] [place] [address] MCV 78.9 fL (80.0-95.0) L [facility] MCH 26.3 pg (27.0-32.0) L [facility] MCHC 33.3 g/dL (32.0-36.0) [facility] RDW 17.1 % (10.5-14.5) H [facility] PLT 391 10*3/uL (150-450) [facility] MPV 6.3 fL (7.1-10.7) L [facility] ID Date Data Source [id number] 02/19/2020 10:00:00 AM EST [facility] Name Value Range Interpretation Code Description Data Debbie rce(s) Supporting Document(s) SARS coronavirus 2 RNA Not Detected [facility] This lab was ordered by [facility] and reported by [facility]. ID Date Data Source H PYLORI SERUM QUANT IGM 01/24/2020 12:00:00 AM EST eCW1 ([facility]) Name Value Range Interpretation Code Description Data Debbie rce(s) Supporting Document(s) <9.0 0.0-8.9 H PYLORI SERUM QUANT IGM eCW1 ([facility]) ID Date Data Source H PYLORI SERUM QUANT IGA 01/24/2020 12:00:00 AM EST eCW1 ([facility]) Name Value Range Interpretation Code Description Data Debbie rce(s) Supporting Document(s) <9.0 0.0-8.9 H PYLORI SERUM QUANT IGA eCW1 ([facility]) ID Date Data Source H PYLORI SERUM QUANT IgG REINALDO 01/24/2020 12:00:00 AM EST eCW1 ([facility]) Name Value Range Interpretation Code Description Data Debbie rce(s) Supporting Document(s) 0.50 0.00-0.79 H PYLORI SERUM QUANT IgG REINALDO eCW1 ([facility]) ID Date Data Source CBC with Differential 01/24/2020 12:00:00 AM EST eCW1 ([facility]) Name Value Range Interpretation Code Description Data Debbie rce(s) Supporting Document(s) 10.7 13.5-17.5 HEMOGLOBIN eCW1 ([facility]) 4.17 4.30-6.10 RED BLOOD COUNT eCW1 ([facility]) 6.0 4.0-10.0 WHITE BLOOD COUNT eCW1 ([facility]) 15.2 11.5-14.5 RED CELL DISTRIBUTION WID TH eCW1 ([facility]) 31.5 32.0-36.5 MEAN CORPUSCULAR HGB CONC eCW1 ([facility]) 25.7 27.0-33.0 MEAN CORPUSCULAR HEMOGLOB IN eCW1 ([facility]) 34.0 42.0-52.0 HEMATOCRIT eCW1 ([facility]) 81.5 80.0-96.0 MEAN CORPUSCULAR VOLUME e CW1 ([facility]) 19.9 24.0-44.0 LYMPH % eCW1 ([facility]) 64.2 36.0-66.0 NEUTROPHILS % eCW1 ([facility]) 13.5 0.0-5.0 MONO % eCW1 ([facility]) 485 150-450 PLATELET COUNT, AUTOMATED eCW1 ([facility]) 1.2 1.5-5.0 LYMPH # eCW1 ([facility]) 0.8 0.0-0.8 MONO # eCW1 ([facility]) 0.8 0.0-1.0 BASO % eCW1 ([facility]) 3.8 1.5-8.5 NEUTROPHILS # eCW1 ([facility]) 0.8 0.0-3.0 EOS % eCW1 ([facility]) 0.1 0.0-0.5 EOS # eCW1 ([facility]) 0.1 0.0-0.2 BASO # eCW1 ([facility]) ID Date Data Source [id number] 01/18/2020 11:54:00 AM EST [facility] Name Value Range Interpretation Code Description Data Debbie rce(s) Supporting Document(s) SARS coronavirus 2 RNA [Presence] in Res piratory specimen by RAD with probe detection [facility] This lab was ordered by [facility] a nd reported by [facility]. ID Date Data Source DDIMER QUANT 01/17/2020 12:00:00 AM EST eCW1 ([facility]) Name Value Range Interpretation Code Description Data Debbie rce(s) Supporting Document(s) 1365.93 <500 D-DIMER QUANT eCW1 ([facility]) ID Date Data Source MAGNESIUM LEVEL 01/17/2020 12:00:00 AM EST eCW1 ([facility]) Name Value Range Interpretation Code Description Data Debbie rce(s) Supporting Document(s) 2.4 1.8-2.4 MAGNESIUM LEVEL eCW1 ([facility]) ID Date Data Source FERRITIN 01/17/2020 12:00:00 AM EST eCW1 ([facility]) Name Value Range Interpretation Code Description Data Debbie rce(s) Supporting Document(s) 17 26-388 FERRITIN eCW1 ([facility]) ID Date Data Source IRON (FE) 01/17/2020 12:00:00 AM EST eCW1 ([facility]) Name Value Range Interpretation Code Description Data Debbie rce(s) Supporting Document(s) 20 65-175 IRON (FE) eCW1 ([facility]) ID Date Data Source Comprehensive Metabolic Profile (CMP) 01/17/2020 12:00:00 AM EST eCW1 ([facility]) Name Value Range Interpretation Code Description Data Debbie rce(s) Supporting Document(s) 78 70-100 GLUCOSE, FASTING eCW1 ([facility]) 10 7-18 BLOOD UREA NITROGEN eCW1 ([facility]) 130 136-145 SODIUM LEVEL eCW1 ([facility]) > 60.0 >49 GLOMERULAR FILTRATION RATE eCW 1 ([facility]) 4.0 3.5-5.1 POTASSIUM SERUM eCW1 ([facility]) 0.82 0.70-1.30 CREATININE FOR GFR eCW1 ([facility]) 27 21-32 CARBON DIOXIDE LEVEL eCW1 ([facility]) 9.0 8.8-10.2 CALCIUM LEVEL eCW1 ([facility]) 20 7-37 AST/SGOT eCW1 ([facility]) 97 98-107 CHLORIDE LEVEL eCW1 ([facility]) 6.9 6.4-8.2 TOTAL PROTEIN eCW1 ([facility]) 131 45-117 ALKALINE PHOSPHATASE eCW1 ([facility]) 0.3 0.2-1.0 BILIRUBIN,TOTAL eCW1 ([facility]) 30 12-78 ALT/SGPT eCW1 ([facility]) 1.2 ALBUMIN/GLOBULIN RATIO eCW1 ([facility]) 3.8 3.2-5.2 ALBUMIN eCW1 ([facility]) ID Date Data Source CARDIAC MARKER PANEL 01/17/2020 12:00:00 AM EST eCW1 ([facility]) Name Value Range Interpretation Code Description Data Debbie rce(s) Supporting Document(s) 124 39-308 CPK CREATINE PHOSPHOKINASE eCW 1 ([facility]) 1.9 <3.6 CK-MB VALUE MASS eCW1 ([facility]) < 0.02 < 0.10 TROPONIN I eCW1 ([facility]) 1.53 < OR =4 MB/CK RELATIVE INDEX eCW1 ([facility]) ID Date Data Source C REACTIVE PROTEIN QUANTITATIV (At [facility]) 12/09/2019 12:00 :00 AM EDT eCW1 ([facility]) Name Value Range Interpretation Code Description Data Debbie rce(s) Supporting Document(s) 0.37 0.00-0.30 C REACTIVE PROTEIN QUANTI TATIV eCW1 ([facility]) ID Date Data Source FREE T4 & TSH PANEL 12/09/2019 12:00:00 AM EDT eCW1 ([facility]) Name Value Range Interpretation Code Description Data Debbie rce(s) Supporting Document(s) 1.600 0.358-3.740 eCW1 (Replaced by [facility]) 0.85 0.76-1.46 eCW1 ([facility]) ID Date Data Source ERYTHROCYTE SEDIMENTATION RATE 12/09/2019 12:00:00 AM EDT eC W1 ([facility]) Name Value Range Interpretation Code Description Data Debbie rce(s) Supporting Document(s) 8 0-20 ERYTHROCYTE SEDIMENTATION RATE eCW1 ([facility]) ID Date Data Source CPK CREATINE PHOSPHOKINASE 12/09/2019 12:00:00 AM EDT eCW1 ( [facility]) Name Value Range Interpretation Code Description Data Debbie rce(s) Supporting Document(s) 118 39-308 CPK CREATINE PHOSPHOKINASE eCW 1 ([facility]) ID Date Data Source [id number] 05/02/2019 07:15:00 AM EDT MEDENT ([facility], ) Name Value Range Interpretation Code Description Data Debbie rce(s) Supporting Document(s) Glucose, Fasting 110 mg/dL 70-100 Above high normal M EDENT ([facility], ) Blood Urea Nitrogen 12 mg/dL 7-18 Normal (applies to non-nume partha results) [facility] ([facility], ) Creatinine For GFR 0.79 mg/dL 0.70-1.30 Normal (applies to non -numeric results) [facility] ([facility]) Sodium Level 135 meq/L 136-145 Below low normal [facility] ([facility]) Potassium Serum 4.0 meq/L 3.5-5.1 Normal (applies to non-numeric results) [facility] ([facility]) Glomerular Filtration Rate Laboratory test result Normal (applies to non- numeric results) [facility]) <content>Units are mL/min/1.73 m2</content>
<content></content>
<content>Chronic Kidney Disease Staging per NKF:</content>
<content></content>
<content>Stage I & II GFR >=60 Normal to Mildly Decreased</content>
<content>Stage III GFR 30- 59 Moderately Decreased</content>
<content>Stage IV GFR 15-29 Severely Decreased</content>
<content>Stage V GFR <15 Very Little GFR Left</content>
<content>ESRD GFR <15 on BLANKET CUTTING MACHINE OPERATOR</content>
<content></content> Carbon Dioxide Level 26 meq/L 21-32 Normal (applies to non-num natasha results) [facility]) Anion Gap 6 meq/L 8-16 Below low normal [facility] ( [facility]) Chloride Level 103 meq/L 98-107 Normal (applies to non-numeric r esults) [facility]) Calcium Level 8.9 mg/dL 8.8-10.2 Normal (applies to non-numeric re sults) [facility]) ID Date Data Source [id number] 05/02/2019 07:15:00 AM EDT [facility]) Name Value Range Interpretation Code Description Data Debbie rce(s) Supporting Document(s) White Blood Count 7.9 10 4.0-10.0 Normal (applies to non-numeri c results) [facility] ([facility]) Red Blood Count 5.02 10 4.30-6.10 Normal (applies to non-numeric results) [facility] ([facility]) Hemoglobin 15.4 g/dL 13.5-17.5 Normal (applies to non-numeric resul ts) [facility]) Hematocrit 43.9 % 42.0-52.0 Normal (applies to non-numeric resul ts) [facility]) Mean Corpuscular Volume 87.5 fl 80.0-96.0 Normal ( applies to non-numeric results) [facility]) Mean Corpuscular Hemoglobin 30.7 pg 27.0-33.0 Norm al (applies to non-numeric results) [facility] ([facility]) Red Cell Distribution Width 14.6 % 11.5-14.5 Above high normal [facility] ([facility]) Mean Corpuscular HGB Conc 35.1 g/dL 32.0-36.5 Normal (applies to non-numeric results) [facility] ([facility]) Platelet Count, Automated 327 10 150-450 Normal (applies to non-numeric results) [facility] ([facility]) Nucleated Red Blood Cell % 0.0 % 0-0 Normal (applies to n on-numeric results) [facility] ([facility]) ID Date Data Source [id number] 03/14/2019 10:04:00 AM EST [facility] [place]) Name Value Range Interpretation Code Description Data Debbie rce(s) Supporting Document(s) Creatinine For GFR 0.78 mg/dL 0.70-1.30 Normal (applies to non -numeric results) [facility] ([facility]) Glucose, Fasting 100 mg/dL 70-100 Normal (applies to non-numeric results) [facility] ([facility]) Blood Urea Nitrogen 6 mg/dL 7-18 Below low normal [facility] ([facility]) Glomerular Filtration Rate Laboratory test result Normal (applies to non- numeric results) [facility]) <content>Units are mL/min/1.73 m2</content>
<content></content>
<content>Chronic Kidney Disease Staging per NKF:</content>
<content></content>
<content>Stage I & II GFR >=60 Normal to Mildly Decreased</content>
<content>Stage III GFR 30- 59 Moderately Decreased</content>
<content>Stage IV GFR 15-29 Severely Decreased</content>
<content>Stage V GFR <15 Very Little GFR Left</content>
<content>ESRD GFR <15 on BLANKET CUTTING MACHINE OPERATOR</content>
<content></content> Potassium Serum 3.7 meq/L 3.5-5.1 Normal (applies to non-numeric results) [facility] Sodium Level 135 meq/L 136-145 Below low normal [facility] ([facility]) Carbon Dioxide Level 31 meq/L 21-32 Normal (applies to non-num natasha results) [facility]) Chloride Level 96 meq/L 98-107 Below low normal [facility] ([facility]) Calcium Level 9.3 mg/dL 8.8-10.2 Normal (applies to non-numeric re sults) [facility] ([facility]) Anion Gap 8 meq/L 8-16 Normal (applies to non-numeric resul ts) [facility]) ID Date Data Source [id number] 03/14/2019 10:04:00 AM EST [facility] ([facility]) Name Value Range Interpretation Code Description Data Debbie rce(s) Supporting Document(s) Red Blood Count 5.12 10 4.30-6.10 Normal (applies to non-numeric results) [facility] ([facility]) White Blood Count 8.2 10 4.0-10.0 Normal (applies to non-numeri c results) [facility] ([facility]) Hematocrit 44.2 % 42.0-52.0 Normal (applies to non-numeric resul ts) [facility]) Hemoglobin 15.6 g/dL 13.5-17.5 Normal (applies to non-numeric resul ts) [facility]) Mean Corpuscular Volume 86.3 fl 80.0-96.0 Normal ( applies to non-numeric results) [facility]) Red Cell Distribution Width 13.5 % 11.5-14.5 Norm al (applies to non-numeric results) [facility]) Mean Corpuscular HGB Conc 35.3 g/dL 32.0-36.5 Normal (applies to non-numeric results) [facility]) Mean Corpuscular Hemoglobin 30.5 pg 27.0-33.0 Norm al (applies to non-numeric results) [facility]) Platelet Count, Automated 375 10 150-450 Normal (applies to non-numeric results) [facility] ([facility], ) Nucleated Red Blood Cell % 0.0 % 0-0 Normal (applies to n on-numeric results) [facility] Procedure Social History Code Duration Value Status Description Data Source(s ) Alcohol intake 03/15/2020 12:00:00 AM EST Yes completed [facility] Smoking 03/15/2020 12:00:00 AM EST Former smoker completed Former smoker [facility] Alcohol intake 02/24/2020 12:00:00 AM EST Yes completed [facility] Smoking 02/24/2020 12:00:00 AM EST Former smoker completed Former smoker [facility] Smoking 02/20/2020 12:00:00 AM EST Former Smoker completed Former Smoker eCW1 ([facility]) Smoking 02/20/2020 12:00:00 AM EST Former Smoker completed Former Smoker eCW1 ([facility]) Smoking 02/20/2020 12:00:00 AM EST Former Smoker completed Former Smoker eCW1 ([facility]) Smoking 02/20/2020 12:00:00 AM EST Former Smoker completed Former Smoker eCW1 ([facility]) Alcohol intake 02/09/2020 12:00:00 AM EST Yes completed [facility] Smoking 02/09/2020 12:00:00 AM EST Former smoker completed Former smoker [facility] Smoking 02/06/2020 12:00:00 AM EST Former Smoker completed Former Smoker eCW1 ([facility]) Smoking 02/06/2020 12:00:00 AM EST Former Smoker completed Former Smoker eCW1 ([facility]) Smoking 02/06/2020 12:00:00 AM EST Former Smoker completed Former Smoker eCW1 ([facility]) Smoking 02/06/2020 12:00:00 AM EST Former Smoker completed Former Smoker eCW1 ([facility]) Smoking 01/16/2020 12:00:00 AM EST Former Smoker completed Former Smoker eCW1 ([facility]) Smoking 01/16/2020 12:00:00 AM EST Former Smoker completed Former Smoker eCW1 ([facility]) Smoking 01/16/2020 12:00:00 AM EST Former Smoker completed Former Smoker eCW1 ([facility]) Smoking 01/16/2020 12:00:00 AM EST Former Smoker completed Former Smoker eCW1 ([facility]) Smoking 12/15/2019 12:00:00 AM EST Patient is a former smoker completed Patient is a former smoker [facility] ([facility]) Smoking 12/09/2019 12:00:00 AM EDT Former Smoker completed Former Smoker eCW1 ([facility]) Smoking 12/09/2019 12:00:00 AM EDT Former Smoker completed Former Smoker eCW1 ([facility]) Smoking 12/09/2019 12:00:00 AM EDT Former Smoker completed Former Smoker eCW1 ([facility]) 02/09/2019 12:00:00 AM EST Cigarette Smoker completed Cig arette Smoker [facility] 02/09/2019 12:00:00 AM EST Current smoker completed Curre nt smoker [facility] 02/09/2019 12:00:00 AM EST Cigarette Smoker completed Cig arette Smoker [facility] 02/09/2019 12:00:00 AM EST Current smoker completed Curre nt smoker [facility] 02/09/2019 12:00:00 AM EST Cigarette Smoker completed Cig arette Smoker [facility] 02/09/2019 12:00:00 AM EST Current smoker completed Curre nt smoker [facility] Vital Signs ID Date Data Source UNK Name Value Range Interpretation Code Description Data Source(s) Body surface area Derived from formula 2.17 m2 2.17 m2 [facility] ([facility]) Body weight 97.070 kg 97.070 kg [facility] ([facility]) [place] body weight 172 [lb_av] 172 [lb_av] MEDEN T ([facility]) Body mass index (BMI) [Ratio] 29.8 kg/m2 29.8 k g/m2 [facility] ([facility]) Body weight 214.00 [lb_av] 214.00 [lb_av] MEDEN T ([facility], ) Body height 71 [in_i] 71 [in_i] MEDFELISHA ([facility], ) 5'11" Diastolic blood pressure 73 mm[Hg] 73 mm[Hg] MEDENT ([facility], ) Systolic blood pressure 151 mm[Hg] 151 mm[Hg] M EDFELISHA ([facility], ) Oxygen saturation in Arterial blood by Pulse oximetry 96 % 96 % [facility] Body mass index (BMI) [Ratio] 30.54 kg/m2 30.54 kg/m2 [facility] Body weight 99.338 kg 99.338 kg [facility] Body height 180.3 cm 180.3 cm [facility] Heart rate 75 /min 75 /min [facility] Diastolic blood pressure 66 mm[Hg] 66 mm[Hg] [facility] Systolic blood pressure 130 mm[Hg] 130 mm[Hg] [facility] Oxygen saturation in Arterial blood by Pulse oximetry 98 % 98 % [facility] Respiratory rate 16 /min 16 /min [facility] Body temperature 36.5 Ellie 36.5 Ellie [facility] Heart rate 86 /min 86 /min [facility] Diastolic blood pressure 69 mm[Hg] 69 mm[Hg] [facility] Systolic blood pressure 137 mm[Hg] 137 mm[Hg] [facility] Body mass index (BMI) [Ratio] 29.00 kg/m2 29.00 kg/m2 [facility] Body weight 94.3 kg 94.3 kg [facility] Body height 180.3 cm 180.3 cm [facility] [facility] Diastolic blood pressure 78 mm[Hg] 78 mm[Hg] eCW1 ([facility]) Systolic blood pressure 128 mm[Hg] 128 mm[Hg] e CW1 ([facility]) Body temperature 98.0 [degF] 98.0 [degF] eCW1 ( [facility]) Respiratory rate 18 /min 18 /min eCW1 ([facility]) Heart rate 97 /min 97 /min eCW1 ([facility]) Body mass index (BMI) [Ratio] 29.70 kg/m2 29.70 kg/m2 eCW1 ([facility]) Body height [in_i] eCW1 ([facility]) Body weight 213 [lb_av] 213 [lb_av] eCW1 ([facility]) Oxygen saturation in Arterial blood by Pulse oximetry 96 % 96 % [facility] Body mass index (BMI) [Ratio] 29.71 kg/m2 29.71 kg/m2 [facility] Body weight 96.616 kg 96.616 kg [facility] Body height 180.3 cm 180.3 cm [facility] Heart rate 89 /min 89 /min [facility] Diastolic blood pressure 62 mm[Hg] 62 mm[Hg] [facility] Systolic blood pressure 118 mm[Hg] 118 mm[Hg] [facility] Diastolic blood pressure 70 mm[Hg] 70 mm[Hg] eCW1 ([facility]) Systolic blood pressure 130 mm[Hg] 130 mm[Hg] e CW1 ([facility]) Body temperature 97.7 [degF] 97.7 [degF] eCW1 ( [facility]) Respiratory rate 18 /min 18 /min eCW1 ([facility]) Heart rate 105 /min 105 /min eCW1 ([facility]) Body mass index (BMI) [Ratio] 29.48 kg/m2 29.48 kg/m2 W1 ([facility]) Body height [in_i] eCW1 ([facility]) Body weight 211.4 [lb_av] 211.4 [lb_av] eCW1 ([facility]) Diastolic blood pressure 70 mm[Hg] 70 mm[Hg] eCW1 ([facility]) Systolic blood pressure 150 mm[Hg] 150 mm[Hg] e CW1 ([facility]) Body temperature 98.6 [degF] 98.6 [degF] eCW1 ( [facility]) Respiratory rate 18 /min 18 /min eCW1 ([facility]) Heart rate 103 /min 103 /min eCW1 ([facility]) Body mass index (BMI) [Ratio] 29.87 kg/m2 29.87 kg/m2 eCW1 ([facility]) Body height [in_i] eCW1 ([facility]) Body weight 214.2 [lb_av] 214.2 [lb_av] eCW1 ([facility]) Body surface area Derived from formula 2.17 m2 2.17 m2 [facility] ([facility]) Body weight 96.674 kg 96.674 kg [facility] ([facility]) [place] body weight 172 [lb_av] 172 [lb_av] [facility] ([facility]) Body mass index (BMI) [Ratio] 29.7 kg/m2 29.7 k g/m2 [facility] Body weight 213.12 [lb_av] 213.12 [lb_av] [facility] T ([facility]) Body height 71 [in_i] 71 [in_i] [facility] ([facility]) 5'11" Diastolic blood pressure 82 mm[Hg] 82 mm[Hg] [facility] L arm 133/77 Systolic blood pressure 136 mm[Hg] 136 mm[Hg] M [facility] ([facility]) L arm 133/77 Systolic blood pressure 162 mm[Hg] 162 mm[Hg] e CW1 ([facility]) Body temperature 97.4 [degF] 97.4 [degF] eCW1 ( [facility]) Respiratory rate 18 /min 18 /min eCW1 ([facility]) Heart rate 97 /min 97 /min eCW1 ([facility]) Body mass index (BMI) [Ratio] 29.70 kg/m2 29.70 kg/m2 eCW1 ([facility]) Body height [in_i] eCW1 ([facility]) Body weight 213.0 [lb_av] 213.0 [lb_av] eCW1 ([facility]) Diastolic blood pressure 78 mm[Hg] 78 mm[Hg] eCW1 ([facility]) Body weight 92.138 kg 92.138 kg [facility] ([facility]) [place] body weight 172 [lb_av] 172 [lb_av] [facility] T ([facility]) Body mass index (BMI) [Ratio] 28.3 kg/m2 28.3 k g/m2 [facility] ([facility]) Body weight 203.12 [lb_av] 203.12 [lb_av] [facility] ([facility]) Body height 71 [in_i] 71 [in_i] [facility] ([facility]) 5'11" Diastolic blood pressure 74 mm[Hg] 74 mm[Hg] [facility] ([facility]) Systolic blood pressure 143 mm[Hg] 143 mm[Hg] [facility] ([facility]) Body weight 89.926 kg 89.926 kg [facility] ([facility]) Body mass index (BMI) [Ratio] 27.6 kg/m2 27.6 k g/m2 [facility] ([facility]) Body weight 198.25 [lb_av] 198.25 [lb_av] [facility] Body height 71 [in_i] 71 [in_i] [facility] ([facility]) 5'11" Body temperature 97.1 [degF] 97.1 [degF] [facility] ([facility]) Diastolic blood pressure 68 mm[Hg] 68 mm[Hg] [facility] ([facility]) Systolic blood pressure 124 mm[Hg] 124 mm[Hg] [facility] Body weight 91.400 kg 91.400 kg [facility] ([facility]) Body mass index (BMI) [Ratio] 28.1 kg/m2 28.1 k g/m2 [facility] ([facility]) Body weight 201.50 [lb_av] 201.50 [lb_av] [facility] T ([facility]) Body height 71 [in_i] 71 [in_i] [facility] 5'11" Body temperature 98.1 [degF] 98.1 [degF] [facility] Diastolic blood pressure 78 mm[Hg] 78 mm[Hg] [facility] ([facility]) Systolic blood pressure 174 mm[Hg] 174 mm[Hg] M [facility] ([facility]) Body weight 91.627 kg 91.627 kg [facility] ([facility]) Body mass index (BMI) [Ratio] 28.2 kg/m2 28.2 k g/m2 [facility] ([facility]) Body weight 202.00 [lb_av] 202.00 [lb_av] [facility] T ([facility]) Body height 71 [in_i] 71 [in_i] [facility] ([facility]) 5'11" Diastolic blood pressure 69 mm[Hg] 69 mm[Hg] [facility] ([facility]) Systolic blood pressure 134 mm[Hg] 134 mm[Hg] [facility] Diastolic blood pressure 72 mm[Hg] 72 mm[Hg] eCW1 ([facility]) Systolic blood pressure 138 mm[Hg] 138 mm[Hg] e CW1 ([facility]) Body temperature 98.8 [degF] 98.8 [degF] eCW1 ( [facility]) Respiratory rate 17 /min 17 /min eCW1 ([facility]) Heart rate 90 /min 90 /min eCW1 ([facility]) Body mass index (BMI) [Ratio] 28.73 kg/m2 28.73 kg/m2 eCW1 ([facility]) Body height [in_us] eCW1 ([facility]) Body weight Measured 206 [lb_av] 206 [lb_av] eC W1 ([facility]) Diastolic blood pressure 72 mm[Hg] 72 mm[Hg] eCW1 ([facility]) Systolic blood pressure 154 mm[Hg] 154 mm[Hg] e CW1 ([facility]) Body temperature 98.7 [degF] 98.7 [degF] eCW1 ( [facility]) Respiratory rate 20 /min 20 /min eCW1 ([facility]) Heart rate 110 /min 110 /min eCW1 ([facility]) Body mass index (BMI) [Ratio] 28.78 kg/m2 28.78 kg/m2 eCW1 ([facility]) Body height [in_us] eCW1 ([facility]) Body weight Measured 206.4 [lb_av] 206.4 [lb_av ] eCW1 ([facility]) Body weight 93.612 kg 93.612 kg [facility] ([facility], ) Body mass index (BMI) [Ratio] 28.8 kg/m2 28.8 k g/m2 [facility] ([facility], ) Body weight 206.38 [lb_av] 206.38 [lb_av] MEDEN T ([facility], ) Body height 71 [in_i] 71 [in_i] MEDFELISHA ([facility], ) 5'11" Diastolic blood pressure 82 mm[Hg] 82 mm[Hg] MEDFELISHA ([facility], ) Systolic blood pressure 154 mm[Hg] 154 mm[Hg] M EDFELISHA ([facility], ) Patient Treatment Plan of Care Planned Activity Planned Date Details Description Data Source (s) Lisinopril 40 MG Oral Tablet 02/26/2020 12:00:00 AM [facility] Chlorthalidone 25 MG Oral Tablet 02/26/2020 12:00:00 AM [facility] Citalopram 40 MG Oral Tablet 01/18/2020 12:00:00 AM [facility] Sucralfate 1000 MG Oral Tablet 01/18/2020 12:00:00 AM EST [facility] Tamsulosin hydrochloride 0.4 MG Oral Capsule 01/18/2020 12:00:00 AM EST [facility] Lisinopril 40 MG Oral Tablet 01/18/2020 12:00:00 AM EST [facility] Chlorthalidone 25 MG Oral Tablet 01/18/2020 12:00:00 AM EST [facility] Sucralfate 1000 MG Oral Tablet [Carafate] 01/17/2020 12:00:00 AM ES T eCW1 ([facility]) Sucralfate 1000 MG Oral Tablet [Carafate] 01/17/2020 12:00:00 AM ES T eCW1 ([facility]) Sucralfate 1000 MG Oral Tablet [Carafate] 01/17/2020 12:00:00 AM ES T eCW1 ([facility]) Sucralfate 1000 MG Oral Tablet [Carafate] 01/17/2020 12:00:00 AM ES T eCW1 ([facility]) Mirtazapine 7.5 MG Oral Tablet 01/16/2020 12:00:00 AM EST [facility] Mirtazapine 7.5 MG Oral Tablet 01/16/2020 12:00:00 AM EST eCW1 ([facility]) Mirtazapine 7.5 MG Oral Tablet 01/16/2020 12:00:00 AM EST eCW1 ([facility]) Mirtazapine 7.5 MG Oral Tablet 01/16/2020 12:00:00 AM EST eCW1 ([facility]) Mirtazapine 7.5 MG Oral Tablet 01/16/2020 12:00:00 AM EST eCW1 ([facility]) Nortriptyline 25 MG Oral Capsule 12/09/2019 12:00:00 AM EDT [facility] atorvastatin 40 MG Oral Tablet 12/09/2019 12:00:00 AM EDT [facility] Tamsulosin hydrochloride 0.4 MG Oral Capsule [Flomax] 12/09/2019 12:00:00 AM EDT eCW1 ([facility]) Tamsulosin hydrochloride 0.4 MG Oral Capsule [Flomax] 12/09/2019 12:00:00 AM EDT eCW1 ([facility]) Tamsulosin hydrochloride 0.4 MG Oral Capsule [Flomax] 12/09/2019 12:00:00 AM EDT eCW1 ([facility]) atorvastatin 80 MG Oral Tablet 10/18/2019 12:00:00 AM EDT [facility] Multiple Vitamin tablet 02/04/2018 12:00:00 AM EST [facility] Acetaminophen 325 MG / Hydrocodone Bitartrate 10 MG Or al Tablet 01/30/2015 12:00:[address] [facility] [place]
[2020-04-05 11:04] LABS: RSV AMPLIFICATION NEGATIVE (NEGATIVE)
[2020-04-05] MEDS ORDERED: ATOR40TA75 PO (11:16)
[2020-04-05] MEDS ORDERED: SUCR1TAB56 PO (11:16)
[2020-04-05] MEDS ORDERED: MIRT1TAB PO (11:16)
[2020-04-05] MEDS ORDERED: FUROSEMIDE 40MG/4ML VIAL (J1940) IV ONE (12:30)
[2020-04-05] MEDS ORDERED: rOPINIRole 0.25 MG TAB(REQUIP) PO ONE (12:30)
[2020-04-05] MEDS: PANTOPRAZOLE 40MG TAB (PROTONIX) PO SCH ×2 (13:31→21:00)
[2020-04-05] MEDS: TAMSULOSIN 0.4 MG CAP PO SCH (13:31)
[2020-04-05] MEDS: CitaloPRAM (CeleXA) 20 MG TAB PO SCH (13:31)
[2020-04-05] MEDS: ATORVASTATIN 20 MG TAB PO SCH (13:31)
[2020-04-05] MEDS ORDERED: SLF 3 ML SYR IV PRN (15:00)
--- NOTE | 2020-04-05 15:36 | HPEPDOC ---
General Date of Admission Apr 05, 2020 at 10:26 Date of Service: Apr 05, 2020 Chief Complaint The patient is a 60-year-old male admitted with a reason for visit of Aortic Stenosis Gib. History of Present Illness 60 year old male with Severe with syncopal episodes since dec 2019, PAD, HTN, HLD, New anemia noted in Dec 2019 with Hb down from 15 to 11, was being worked up by PMD, had stool occult positive x 3 was referred to GI saw them on 04/04/20, Had cardiac cath at [facility] in feb 2020 was scheduled for TAVR on 04/06/20 but was cancelled due to anemia. After he was seen by Dr Meadows yesterday for anemia he was referred to ED for admission for EGD and Colonoscopy on 04/06/20 and patient came to the ed today. At present he has exertional SOB. He denies any chest pain or SOB at rest. He denies any hemetemesis or melena. Denies any abdominal pain nausea or vomiting. He reports that he has passed out 3 times since December. He complains of restless legs and bilateral leg pains. He feels very anxious and fidgety and would like some ativan as he was given that during his prior admission and it helped. Patient was admitted for possible GIB and chronic blood loss anemia. Home Medications Scheduled Atorvastatin Calcium (Atorvastatin Calcium) 40 Mg Tablet, 40 MG PO DAILY, (Reported) Chlorthalidone (Chlorthalidone) 25 Mg Tab, 25 MG PO DAILY, (Reported) Citalopram Hydrobromide (Celexa) 40 Mg Tab, 40 MG PO DAILY, (Reported) Clopidogrel Bisulfate (Plavix) 75 Mg Tab, 75 MG PO QAM, (Reported) ON HOLD SINCE 03/30/20 - SCHEDULED FOR SURGERY ON 04/06/20 Lisinopril (Lisinopril) 40 Mg Tablet, 20 MG PO DAILY, (Reported) Pantoprazole Sodium (Pantoprazole Sodium) 40 Mg Tablet.dr, 40 MG PO BID, (Reported) Sucralfate (Sucralfate) 1 Gm Tablet, 1 GM PO DAILY, (Reported) Tamsulosin Hcl (Tamsulosin HCl) 0.4 Mg Capsule, 0.4 MG PO DAILY, (Reported) Scheduled PRN Diclofenac Sodium (Diclofenac Sodium) 1% 100GM Gel..gram., 1 DOSE TOP QID PRN for PAIN, (Reported) APPLY TO SHOULDERS Mirtazapine (Mirtazapine) 7.5 Mg Tablet, 15 MG PO QHS PRN for SLEEP, (Reported) Allergies Coded Allergies: No Known Allergies (Unverified , 05/04/18) Past Medical History Medical History Severe Aortic stenosis with h/o 3 syncopes since Dec 2019 was planned for TAVR this week but cancelled due to anemia New Anemia with positive occult blood x 3 DEPRESSION & ANXIETY GERD Diverticulosis Hemorrhoids PAD- s/p FEMORAL TIBIAL BYPASS GRAFT in 2014 s/p stents RESTLESS LEGS BACK PAIN / Spinal stenosis/ radiculopathy/ s/p lumber fusion L1-L5 in 2018 Surgical History R FEMORAL-POPLITEAL BYPASS GRAFTING 2014 APPENDECTOMY HYDROCELE REPAIR CERVICAL FUSION 2004 LUMBAR FUSION ALL LEVELS WITH BONE STIMULATOR (SPF- XL IIB ) 11/05/16 TONSILLECTOMY DENTAL [id number] EGD, COLONOSCOPY -DR. MEADOWS 2015 STENT IN RIGHT LOWER LEG DR MONTES 05/2017 Family History FATHER: 66 YRS, DIAGNOSED WITH UNSPECIFIED HEART DISEASE MOTHER: 70 YRS had throat cancer and from Emphysema Social History * Smoker: former Smoker Alcohol: occationally (2 beers daily) Drugs: marijuana A-FIB/CHADSVASC A-FIB History Current/History of A-Fib/PAF?: No Review of Systems Constitutional: Denies: Chills, Fever, Night Sweats Eyes: Denies: Pain, Vision change ENT: Denies: Head Aches, Ear Pain, Dysphagia Skin: Denies: Rash, Lesions, Breakdown Pulmonary: Denies: Dyspnea, Cough Cardiovascular: Denies: Chest Pain, Palpitations, Orthopnea, Paroxysmal Noc. Dyspnea, Lt Headedness Gastrointestinal: Denies: Nausea, Vomiting, Abdominal Pain, Diarrhea Genitourinary: Denies: Dysuria, Frequency, Incontinence, Retention Hematologic: Denies: Bruising, Bleeding Excessively Musculoskeletal: Reports: Leg Pain, Muscle Pain, Other Symptoms (restless legs) Psych: Reports: Anxiety Physical Examination General Exam: Positive: Alert, Cooperative, No Acute Distress Eye Exam: Positive: PERRLA, Conjunctiva & lids normal, EOMI; Negative: Sclera icteric ENT Exam: Positive: Atraumatic, Mucous membr. moist/pink, Pharynx Normal Neck Exam: Positive: Supple; Negative: JVD, thyromegaly Chest Exam: Positive: Clear to auscultation, Normal air movement Heart Exam: Positive: Rate Normal, Regular Rhythm, Normal S1, Normal S2, Murmurs (harsh systolic murur); Negative: Rubs Abdomen Exam: Positive: Normal bowel sounds, Soft; Negative: Tenderness Extremity Exam: Negative: Clubbing, Cyanosis, Edema Vital Signs Vital Signs Date Time Temp Pulse Resp B/P (MAP) Pulse Ox O2 Delivery O2 Flow Rate FiO2 04/05/20 12:13 97.7 78 18 149/69 98 Room Air Laboratory Data Labs 24H Laboratory Tests 2 04/05/20 09:03: Nucleated Red Blood Cells % (auto) 0.0, Anion Gap 5L, Glomerular Filtration Rate > 60.0, Calcium Level 9.1, Iron Level 21L, Total Iron Binding Capacity 403, Transferrin % Saturation 5.2L, Ferritin 10L, Total Creatine Kinase 123, Creatine Kinase MB 1.6, Creatine Kinase MB Relative Index 1.30, Troponin I 0.03, Vitamin B12 Level 455, Folate 16.5 04/05/20 10:18: Coronavirus (COVID-19)(PCR) NEGATIVE, Influenza Type A (RT-PCR) NEGATIVE, Influenza Type B (RT-PCR) NEGATIVE, Respiratory Syncytial Virus (PCR) NEGATIVE CBC/BMP Laboratory Tests 04/05/20 09:03 Assessment/Plan 60 year old male with Severe with syncopal episodes since dec 2019, PAD, HTN, HLD, New anemia noted in Dec 2019 with Hb down from 15 to 11, was being worked up by PMD, had stool occult positive x 3 was referred to GI saw them on 04/04/20, Had cardiac cath at [facility] in feb 2020 was scheduled for TAVR on 04/06/20 but was cancelled due to anemia. After he was seen by Dr Meadows yesterday for anemia he was referred to ED for admission for EGD and Colonoscopy on 04/06/20 and patient came to the ed on 04/05/20. Patient was admitted for possible GIB and chronic blood loss anemia. GIB and chronic blood loss anemia will give 2 units of PRBC with lasix in between hold HCTZ Dr Meadows to see for EGD and colonoscopy. clear liquids Iron deficiency will add supplements on discharge. PAD on Plavix, statin GERD PPI HTN lisinopril BPH flomax RLS ropinirole Plan / VTE VTE Prophylaxis Ordered?: Yes MARIZOL CLIFTON MD Apr 05, 2020 12:54
[2020-04-05] MEDS ORDERED: MOM 30ML SUSPENSION UDC PO ONE (16:25)
[2020-04-05] MEDS ORDERED: POLYETHYLENE GLYCOL (MIRALAX) 238GM BOTTLE PO ONE (17:00)
[2020-04-05] MEDS ORDERED: ACETAMINOPHEN TAB 650MG DOSE (2X325MG) PO PRN (20:55)
[2020-04-05] MEDS: SLF 3 ML SYR IV SCH (21:00)
[2020-04-06] VITALS (7 sets, daily range): BP systolic 106–144; BP diastolic 51–81
[2020-04-06] MEDS: SLF 3 ML SYR IV SCH ×3 (06:17→21:27)
[2020-04-06] MEDS ORDERED: POLYETHYLENE GLYCOL (MIRALAX) 238GM BOTTLE PO ONE (07:00)
[2020-04-06 07:50] LABS: BASO % 0.7 % (0.0-1.0); EOS # 0.1 10^3/uL (0.0-0.5); EOS % 1.8 % (0.0-3.0); HEMATOCRIT 30.3 % (42.0-52.0); HEMOGLOBIN 9.8 g/dl (13.5-17.5); LYMPH # 1.6 10^3/uL (1.5-5.0); LYMPH % 26.5 % (24.0-44.0); MEAN CORPUSCULAR HEMOGLOBIN 25.3 pg (27.0-33.0); MEAN CORPUSCULAR HGB CONC 32.3 g/dl (32.0-36.5); MEAN CORPUSCULAR VOLUME 78.1 fl (80.0-96.0); MONO # 0.9 10^3/uL (0.0-0.8); MONO % 14.9 % (2.0-8.0); NEUTROPHILS # 3.3 10^3/uL (1.5-8.5); NEUTROPHILS % 55.9 % (36.0-66.0); PLATELET COUNT, AUTOMATED 447 10^3/uL (150-450); RED BLOOD COUNT 3.88 10^6/uL (4.30-6.10)
[2020-04-06 08:10] LABS: BLOOD UREA NITROGEN 13 MG/DL (7-18); CALCIUM LEVEL 8.8 MG/DL (8.8-10.2); CARBON DIOXIDE LEVEL 29 MEQ/L (21-32); CHLORIDE LEVEL 100 MEQ/L (98-107); CREATININE FOR GFR 1.13 MG/DL (0.70-1.30); GLOMERULAR FILTRATION RATE > 60.0 (>49); GLUCOSE, FASTING 90 MG/DL (70-100); MAGNESIUM LEVEL 2.3 MG/DL (1.8-2.4); PHOSPHORUS LEVEL 4.2 MG/DL (2.5-4.9); POTASSIUM SERUM 3.9 MEQ/L (3.5-5.1); SODIUM LEVEL 135 MEQ/L (136-145)
[2020-04-06] MEDS: PANTOPRAZOLE 40MG TAB (PROTONIX) PO SCH ×2 (08:38→21:27)
[2020-04-06] MEDS: ATORVASTATIN 20 MG TAB PO SCH (08:38)
[2020-04-06] MEDS: TAMSULOSIN 0.4 MG CAP PO SCH (08:38)
[2020-04-06] MEDS: CitaloPRAM (CeleXA) 20 MG TAB PO SCH (08:38)
[2020-04-06] MEDS ORDERED: FLUBLOK(EGG FREE)(QUAD)INFLUENZA VACC 0.5ML SYRINGE 18YRS & OLDER IM ONE (09:00)
--- NOTE | 2020-04-06 11:10 | IPNPDOC ---
Subjective Date Seen The patient was seen on 04/06/20. Subjective Chief Complaint/HPI No complaints this morning. Getting bowel prep. Objective Physical Examination General Exam: Positive: Alert, Cooperative, No Acute Distress Eye Exam: Positive: PERRLA, Conjunctiva & lids normal, EOMI; Negative: Sclera icteric ENT Exam: Positive: Atraumatic, Mucous membr. moist/pink, Pharynx Normal Neck Exam: Positive: Supple; Negative: JVD, thyromegaly Chest Exam: Positive: Clear to auscultation, Normal air movement Heart Exam: Positive: Rate Normal, Regular Rhythm, Normal S1, Normal S2, Murmurs (harsh systolic murur); Negative: Rubs Abdomen Exam: Positive: Normal bowel sounds, Soft; Negative: Tenderness Extremity Exam: Negative: Clubbing, Cyanosis, Edema Assessment /Plan Assessment 60 year old male with Severe with syncopal episodes since dec 2019, PAD, HTN, HLD, New anemia noted in Dec 2019 with Hb down from 15 to 11, was being worked up by PMD, had stool occult positive x 3 was referred to GI saw them on 04/04/20, Had cardiac cath at [facility] in feb 2020 was scheduled for TAVR on 04/06/20 but was cancelled due to anemia. After he was seen by Dr Meadows yesterday for anemia he was referred to ED for admission for EGD and Colonoscopy on 04/06/20 and patient came to the ed on 04/05/20. Patient was admitted for possible GIB and chronic blood loss anemia. GIB and chronic blood loss anemia recieved 2 units of PRBC. HB at 9.8 EGD and colonoscopy on 04/06/20 clear liquids Iron deficiency will add supplements on discharge. PAD on Plavix, statin GERD PPI HTN lisinopril BPH flomax RLS ropinirole Plan/VTE VTE Prophylaxis Ordered?: Yes VS, I&O, 24H, Fishbone Vital Signs/I&O Vital Signs Date Time Temp Pulse Resp B/P (MAP) Pulse Ox O2 Delivery O2 Flow Rate FiO2 04/06/20 08:38 142/74 04/06/20 08:00 97.8 88 18 98 Room Air I&O- Last 24 Hours up to 6 AM 04/06/20 06:00 Intake Total 2090 ml Output Total 1250 ml Balance 840 ml Laboratory Data 24H LABS Laboratory Tests 2 04/06/20 05:29: Immature Granulocyte % (Auto) 0.2, Neutrophils (%) (Auto) 55.9, Lymphocytes (%) (Auto) 26.5, Monocytes (%) (Auto) 14.9H, Eosinophils (%) (Auto) 1.8, Basophils (%) (Auto) 0.7, Neutrophils # (Auto) 3.3, Lymphocytes # (Auto) 1.6, Monocytes # (Auto) 0.9H, Eosinophils # (Auto) 0.1, Basophils # (Auto) 0.0, Nucleated Red Blood Cells % (auto) 0.0, Anion Gap 6L, Glomerular Filtration Rate > 60.0, Calcium Level 8.8, Phosphorus Level 4.2, Magnesium Level 2.3 CBC/BMP Laboratory Tests 04/06/20 05:29 MARIZOL CLIFTON MD Apr 06, 2020 11:10
[2020-04-06] MEDS ORDERED: LIDOCAINE 2% 100MG/5ML SDV (FOR ANES.) As Ordered ONE (16:38)
[2020-04-06] MEDS ORDERED: propofoL 200 MG/20 ML VIAL As Ordered ONE (16:38)
[2020-04-06] MEDS ORDERED: CETACAINE SPRAY 5GM As Ordered ONE (16:53)
[2020-04-06] MEDS ORDERED: fentaNYL 100 MCG/2 ML INJECTION (J3010) As Ordered ONE (16:54)
[2020-04-06] MEDS ORDERED: MIDAZOLAM INJ 2MG/2ML VIAL (J2250 PER 1MG) As Ordered ONE (16:54)
[2020-04-06] MEDS ORDERED: VASOPRESSIN INJ 20 UNITS/ML VIAL As Ordered ONE (17:29)
--- NOTE | 2020-04-06 17:56 | ROOR ---
Patient Name: Horace Shi Procedure Date: 04/06/2020 4:43 PM Date of : 1960 Age: 60 Room: Main OR Gender: Male Note Status: Finalized Procedure: Upper GI endoscopy Indications: Iron deficiency anemia secondary to chronic blood loss Providers: Giorgio MEADOWS MD Referring MD: 2. Inpatient 2. Inpatient, Chadwick Riggs MD Requesting Provider: Medicines: Monitored Anesthesia Care Complications: No immediate complications. Procedure: Pre-Anesthesia Assessment: - The heart rate, respiratory rate, oxygen saturations, blood pressure, adequacy of pulmonary ventilation, and response to care were monitored throughout the procedure. The Endoscope was introduced through the mouth, and advanced to the third part of duodenum. The upper GI endoscopy was accomplished without difficulty. The patient tolerated the procedure well. Findings: The examined esophagus was normal. The entire examined stomach was normal. Two small angioectasias without bleeding were found in the second portion of the duodenum and in the third portion of the duodenum. Coagulation for bleeding prevention using argon beam at 0.8 liters/minute and 25 dhillon was successful. Impression: - Normal esophagus. - Normal stomach. - Two non-bleeding angioectasias in the duodenum. Treated with argon beam coagulation. - No specimens collected. Recommendation: - Observe patient's clinical course. Procedure Code(s): --- Professional --- 52158, Esophagogastroduodenoscopy, flexible, transoral; with control of bleeding, any method Diagnosis Code(s): --- Professional --- D50.0, Iron deficiency anemia secondary to blood loss (chronic) K31.819, Angiodysplasia of stomach and duodenum without bleeding CPT copyright 2019 [employer]. All rights reserved. The codes documented in this report are preliminary and upon contact officer review may be revised to meet current compliance requirements. Giorgio Meadows MD Giorgio MEADOWS MD 04/06/2020 5:55:58 PM Electronically signed by Giorgio MEADOWS MD Number of Addenda: 0 Note Initiated On: 04/06/2020 4:43 PM Estimated Blood Loss: Estimated blood loss: none.
--- NOTE | 2020-04-06 18:01 | ROOR ---
Patient Name: Horace hSi Procedure Date: 04/06/2020 4:44 PM Date of : 1960 Age: 60 Room: Main OR Gender: Male Note Status: Finalized Procedure: Colonoscopy Indications: Iron deficiency anemia secondary to chronic blood loss Providers: Giorgio MEADOWS MD Referring MD: 2. Inpatient 2. Inpatient, Chadwick Riggs MD Requesting Provider: Medicines: Monitored Anesthesia Care Complications: No immediate complications. Procedure: Pre-Anesthesia Assessment: - The heart rate, respiratory rate, oxygen saturations, blood pressure, adequacy of pulmonary ventilation, and response to care were monitored throughout the procedure. The Colonoscope was introduced through the anus and advanced to the cecum, identified by appendiceal orifice and ileocecal valve. The colonoscopy was performed without difficulty. The patient tolerated the procedure well. The quality of the bowel preparation was fair. Findings: Skin tags were found on perianal exam. Multiple small and large-mouthed diverticula were found in the sigmoid colon and descending colon. Four small angioectasias without bleeding were found in the transverse colon, in the ascending colon and in the cecum. Coagulation for bleeding prevention using argon plasma at 0.8 liters/minute and 25 dhillon was successful. Small Internal Hemorrhoids. The exam was otherwise without abnormality on direct and retroflexion views. Impression: - Preparation of the colon was fair. - Four non-bleeding colonic angioectasias. Treated with argon plasma coagulation (APC). - Perianal skin tags found on perianal exam. - Diverticulosis in the sigmoid colon and in the descending colon. - Small Internal Hemorrhoids. - The examination was otherwise normal on direct and retroflexion views. - No specimens collected. Recommendation: - Repeat colonoscopy in 1 year because the bowel preparation was suboptimal. - Return to referring physician as previously scheduled. Procedure Code(s): --- Professional --- 10932, Colonoscopy, flexible; with control of bleeding, any method Diagnosis Code(s): --- Professional --- K55.20, Angiodysplasia of colon without hemorrhage K64.4, Residual hemorrhoidal skin tags D50.0, Iron deficiency anemia secondary to blood loss (chronic) K57.30, Diverticulosis of large intestine without perforation or abscess without bleeding CPT copyright 2019 [employer]. All rights reserved. The codes documented in this report are preliminary and upon plastics and composites inspector review may be revised to meet current compliance requirements. Giorgio Meadows MD Giorgio MEADOWS MD 04/06/2020 6:00:48 PM Electronically signed by Giorgio MEADOWS MD Number of Addenda: 0 Note Initiated On: 04/06/2020 4:44 PM Estimated Blood Loss: Estimated blood loss: none.
[2020-04-06] MEDS ORDERED: ONDANSETRON 4MG/2ML VIAL IV PRN (18:45)
[2020-04-06] MEDS ORDERED: LR 1,000 ML IV SCH (18:45)
[2020-04-07] VITALS: BP 128/64
[2020-04-07 04:00] VITALS: BP 119/62
[2020-04-07 05:47] LABS: BASO # 0.1 10^3/uL (0.0-0.2); BASO % 0.6 % (0.0-1.0); EOS # 0.1 10^3/uL (0.0-0.5); EOS % 1.8 % (0.0-3.0); HEMATOCRIT 31.9 % (42.0-52.0); HEMOGLOBIN 10.1 g/dl (13.5-17.5); LYMPH # 1.4 10^3/uL (1.5-5.0); LYMPH % 17.4 % (24.0-44.0); MEAN CORPUSCULAR HEMOGLOBIN 24.8 pg (27.0-33.0); MEAN CORPUSCULAR HGB CONC 31.7 g/dl (32.0-36.5); MEAN CORPUSCULAR VOLUME 78.4 fl (80.0-96.0); MONO % 12.8 % (2.0-8.0); NEUTROPHILS # 5.2 10^3/uL (1.5-8.5); PLATELET COUNT, AUTOMATED 464 10^3/uL (150-450); RED BLOOD COUNT 4.07 10^6/uL (4.30-6.10); WHITE BLOOD COUNT 7.8 10^3/uL (4.0-10.0)
[2020-04-07 06:11] LABS: BLOOD UREA NITROGEN 21 MG/DL (7-18); CALCIUM LEVEL 9.4 MG/DL (8.8-10.2); CARBON DIOXIDE LEVEL 27 MEQ/L (21-32); CHLORIDE LEVEL 99 MEQ/L (98-107); CREATININE FOR GFR 1.23 MG/DL (0.70-1.30); GLOMERULAR FILTRATION RATE > 60.0 (>49); GLUCOSE, FASTING 98 MG/DL (70-100); POTASSIUM SERUM 3.9 MEQ/L (3.5-5.1); SODIUM LEVEL 134 MEQ/L (136-145)
[2020-04-07] MEDS: SLF 3 ML SYR IV SCH (06:44)
[2020-04-07 08:00] VITALS: BP 136/73
[2020-04-07 08:32] VITALS: BP 135/56
[2020-04-07] MEDS: TAMSULOSIN 0.4 MG CAP PO SCH (08:32)
[2020-04-07] MEDS: CitaloPRAM (CeleXA) 20 MG TAB PO SCH (08:32)
[2020-04-07] MEDS: PANTOPRAZOLE 40MG TAB (PROTONIX) PO SCH (08:32)
[2020-04-07] MEDS: ATORVASTATIN 20 MG TAB PO SCH (08:32)
[2020-04-07] MEDS ORDERED: FERR325T82 PO (16:04)
[2020-04-07] MEDS ORDERED: COLA100C5 PO (16:05)
--- NOTE | 2020-04-07 16:07 | DS.PDOC ---
Discharge Summary General Date of Admission Apr 05, 2020 at 10:26 Date of Discharge 04/07/20 Discharge Summary PROCEDURES PERFORMED DURING STAY: EGD: Findings: The examined esophagus was normal. The entire examined stomach was normal. Two small angioectasias without bleeding were found in the second portion of the duodenum and in the third portion of the duodenum. Coagulation for bleeding prevention using argon beam at 0.8 liters/minute and 25 dhillon was successful. Impression: - Normal esophagus. - Normal stomach. - Two non-bleeding angioectasias in the duodenum. Treated with argon beam coagulation. - No specimens collected. COLONOSCOPY: Skin tags were found on perianal exam. Multiple small and large-mouthed diverticula were found in the sigmoid colon and descending colon. Four small angioectasias without bleeding were found in the transverse colon, in the ascending colon and in the cecum. Coagulation for bleeding prevention using argon plasma at 0.8 liters/minute and 25 dhillon was successful. Small Internal Hemorrhoids. The exam was otherwise without abnormality on direct and retroflexion views. Impression: - Preparation of the colon was fair. - Four non-bleeding colonic angioectasias. Treated with argon plasma coagulation (APC). - Perianal skin tags found on perianal exam. - Diverticulosis in the sigmoid colon and in the descending colon. - Small Internal Hemorrhoids. - The examination was otherwise normal on direct and retroflexion views. - No specimens collected. Recommendation: - Repeat colonoscopy in 1 year because the bowel preparation was suboptimal DISCHARGE DIAGNOSIS: Chronic GIB from multiple gastric, duodenal and colonic Angiodysplasia. Iron deficiency Anemia. SECONDARY DIAGNOSIS: Severe Aortic Stenosis with syncopal episodes since dec 2019, PAD, HTN, HLD, Chronic anemia Hospital Course: 60 year old male with Severe with syncopal episodes since dec 2019, PAD, HTN, HLD, New anemia noted in Dec 2019 with Hb down from 15 to 11, was being worked up by PMD, had stool occult positive x 3 was referred to GI saw them on 04/04/20, Had cardiac cath at [facility] in feb 2020 was scheduled for TAVR on 04/06/20 but was cancelled due to anemia. After he was seen by Dr Meadows yesterday for anemia he was referred to ED for admission for EGD and Colonoscopy on 04/06/20 and patient came to the ed on 04/05/20. Patient was admitted for possible GIB and chronic blood loss anemia. GIB and chronic blood loss anemia received 2 units of PRBC. EGD and colonoscopy on 04/06/20 showed gastric, duodenal and colonic multiple agiotectasias s/p Argon laser treatment follow up with Dr Meadows Iron deficiency anemia will add supplement on discharge. PAD on Plavix, statin GERD PPI HTN lisinopril BPH flomax RLS ropinirole PHYSICAL EXAM: VITALS: As below General Exam: Positive: Alert, Cooperative, No Acute Distress Eye Exam: Positive: PERRLA, Conjunctiva & lids normal, EOMI; Negative: Sclera icteric ENT Exam: Positive: Atraumatic, Mucous membr. moist/pink, Pharynx Normal Neck Exam: Positive: Supple; Negative: JVD, thyromegaly Chest Exam: Positive: Clear to auscultation, Normal air movement Heart Exam: Positive: Rate Normal, Regular Rhythm, Normal S1, Normal S2, Murmurs (harsh systolic murur); Negative: Rubs Abdomen Exam: Positive: Normal bowel sounds, Soft; Negative: Tenderness Extremity Exam: Negative: Clubbing, Cyanosis, Edema LABORATORY: As below Diet: Regular Activity : As tolerated Disposition: Home DISPOSITION: 01 Home, Self-Care. DISCHARGE INSTRUCTIONS: Follow up PMD in [address] Meadows in 1 week DISCHARGE CONDITION: [Stable]. TIME SPENT ON DISCHARGE: 35 minutes. Vital Signs/I&Os Vital Signs Date Time Temp Pulse Resp B/P (MAP) Pulse Ox O2 Delivery O2 Flow Rate FiO2 04/07/20 08:32 135/56 04/07/20 08:00 98.5 101 18 96 Room Air I&O- Last 24 Hours up to 6 AM 04/07/20 06:00 Intake Total 925 ml Output Total 665 ml Balance 260 ml Laboratory Data Labs 24H Laboratory Tests 2 04/07/20 05:11: Immature Granulocyte % (Auto) 0.4, Neutrophils (%) (Auto) 67.0H, Lymphocytes (%) (Auto) 17.4L, Monocytes (%) (Auto) 12.8H, Eosinophils (%) (Auto) 1.8, Basophils (%) (Auto) 0.6, Neutrophils # (Auto) 5.2, Lymphocytes # (Auto) 1.4L, Monocytes # (Auto) 1.0H, Eosinophils # (Auto) 0.1, Basophils # (Auto) 0.1, Nucleated Red Blood Cells % (auto) 0.0, Anion Gap 8, Glomerular Filtration Rate > 60.0, Calcium Level 9.4 CBC/BMP Laboratory Tests 04/07/20 05:11 Discharge Medications Scheduled Atorvastatin Calcium (Atorvastatin Calcium) 40 Mg Tablet, 40 MG PO DAILY, (Reported) Chlorthalidone (Chlorthalidone) 25 Mg Tab, 25 MG PO DAILY, (Reported) Citalopram Hydrobromide (Celexa) 40 Mg Tab, 40 MG PO DAILY, (Reported) Clopidogrel Bisulfate (Plavix) 75 Mg Tab, 75 MG PO QAM, (Reported) ON HOLD SINCE 03/30/20 - SCHEDULED FOR SURGERY ON 04/06/20 Lisinopril (Lisinopril) 40 Mg Tablet, 20 MG PO DAILY, (Reported) Pantoprazole Sodium (Pantoprazole Sodium) 40 Mg Tablet.dr, 40 MG PO BID, (Reported) Sucralfate (Sucralfate) 1 Gm Tablet, 1 GM PO DAILY, (Reported) Tamsulosin Hcl (Tamsulosin HCl) 0.4 Mg Capsule, 0.4 MG PO DAILY, (Reported) Scheduled PRN Diclofenac Sodium (Diclofenac Sodium) 1% 100GM Gel..gram., 1 DOSE TOP QID PRN for PAIN, (Reported) APPLY TO SHOULDERS Mirtazapine (Mirtazapine) 7.5 Mg Tablet, 15 MG PO QHS PRN for SLEEP, (Reported) Allergies Coded Allergies: No Known Allergies (Unverified , 05/04/18) MARIZOL CLIFTON MD Apr 07, 2020 16:07
== END 2020-04-07 11:00 | disposition home or self-care (01) | DRG 811 ==
LOC: M ED 08:30 → M ED INP 10:26 → M PCU 13:04
PROVIDERS: ADMIT Internal Medicine Nephrology; ATTEND Internal Medicine Nephrology
PROC: 30233N1 Transfusion of Nonautologous Red Blood Cells into Peripheral Vein, Percutaneous Approach (ICD-10-PCS; 2020-04-05)
PROC: 0W3P8ZZ Control Bleeding in Gastrointestinal Tract, Via Natural or Artificial Opening Endoscopic (ICD-10-PCS; principal; 2020-04-06 15:30)
DX: D50.0 Iron deficiency anemia secondary to blood loss (chronic) (principal); K55.21 Angiodysplasia of colon with hemorrhage; K31.811 Angiodysplasia of stomach and duodenum with bleeding; I35.0 Nonrheumatic aortic (valve) stenosis; I73.9 Peripheral vascular disease, unspecified; I10 Essential (primary) hypertension; E78.5 Hyperlipidemia, unspecified; F32.9 Major depressive disorder, single episode, unspecified; F41.9 Anxiety disorder, unspecified; K64.4 Residual hemorrhoidal skin tags; K21.9 Gastro-esophageal reflux disease without esophagitis; K57.30 Diverticulosis of large intestine without perforation or abscess without bleeding; Z95.820 Peripheral vascular angioplasty status with implants and grafts; Z98.1 Arthrodesis status; Z79.02 Long term (current) use of antithrombotics/antiplatelets; Z79.899 Other long term (current) drug therapy; Z90.49 Acquired absence of other specified parts of digestive tract; Z87.891 Personal history of nicotine dependence; Z20.822 Contact with and (suspected) exposure to COVID-19

== ENCOUNTER → 2020-04-25 | Outpatient (REF) | payer MEDICARE ==
[~2020-04-25] MED LIST changes: +FERR325T82 PO; +LISI40TA4 PO; +MIRT1TAB PO; +SUCR1TAB56 PO
[2020-04-25 13:10] LABS: HEMATOCRIT 31.9 % (42.0-52.0); HEMOGLOBIN 9.9 g/dl (13.5-17.5); LYMPH % 22.4 % (24.0-44.0); MEAN CORPUSCULAR HEMOGLOBIN 24.6 pg (27.0-33.0); MEAN CORPUSCULAR VOLUME 79.4 fl (80.0-96.0); NEUTROPHILS % 63.7 % (36.0-66.0); PLATELET COUNT, AUTOMATED 469 10^3/uL (150-450); RED BLOOD COUNT 4.02 10^6/uL (4.30-6.10); WHITE BLOOD COUNT 5.7 10^3/uL (4.0-10.0)
[2020-04-25 13:11] LABS: BASO % 0.5 % (0.0-1.0); EOS # 0.1 10^3/uL (0.0-0.5); EOS % 1.6 % (0.0-3.0); LYMPH # 1.3 10^3/uL (1.5-5.0); MONO # 0.6 10^3/uL (0.0-0.8); MONO % 11.3 % (2.0-8.0); NEUTROPHILS # 3.6 10^3/uL (1.5-8.5)
[2020-04-25 14:02] LABS: ALBUMIN 3.8 GM/DL (3.2-5.2); ALT/SGPT 23 U/L (12-78); BILIRUBIN,TOTAL 0.3 MG/DL (0.2-1.0); BLOOD UREA NITROGEN 13 MG/DL (7-18); CALCIUM LEVEL 9.3 MG/DL (8.8-10.2); CARBON DIOXIDE LEVEL 30 MEQ/L (21-32); CHLORIDE LEVEL 101 MEQ/L (98-107); CREATININE FOR GFR 0.74 MG/DL (0.70-1.30); FERRITIN 15 NG/ML (26-388); GLOMERULAR FILTRATION RATE > 60.0 (>49); GLUCOSE, FASTING 108 MG/DL (70-100); IRON (FE) 18 UG/DL (65-175); POTASSIUM SERUM 4.6 MEQ/L (3.5-5.1); SODIUM LEVEL 136 MEQ/L (136-145); TOTAL PROTEIN 7.1 GM/DL (6.4-8.2)
== END ==
LOC: M PLALAB 11:18
PROVIDERS: ATTEND Physician Assistant Medical
DX: K92.2 Gastrointestinal hemorrhage, unspecified (principal)

== ENCOUNTER → 2020-04-25 | Outpatient (CLI) | payer MEDICARE ==
--- NOTE | 2020-04-25 11:59 | REPPI ---
INDICATION: M25.511 ARTHRALGIA OF SHOULDER REGION, RIGHT. COMPARISON: 06/09/2011. TECHNIQUE: Three views. FINDINGS: There is a a bony spur arising from the undersurface of the acromion as an interval change. There is narrowing of the subacromial space as an interval change. These findings may indicate rotator cuff tendinopathy. The acromioclavicular joint is narrowed compatible with osteoarthritis. The suspected fracture of the distal clavicle on the comparison study appears to have healed. There is glenohumeral osteoarthritis as an interval change. IMPRESSION: Findings compatible with rotator cuff tendinopathy as described. Acromioclavicular osteoarthritis. Glenohumeral osteoarthritis. <Electronically signed by Xander Bonilla > 04/25/20 [id number]
== END ==
LOC: M PLAIMG 11:18
PROVIDERS: ATTEND Physician Assistant Medical
DX: M19.011 Primary osteoarthritis, right shoulder (principal)

== ENCOUNTER → 2020-05-29 | Outpatient (CLI) | payer MEDICARE ==
--- NOTE | 2020-05-30 09:09 | REP ---
INDICATION: ATHSCL CHILKAT ARTERIES W/ CLAUDICATION. History of bypass graft on the right. COMPARISON: November 17, 2019.. TECHNIQUE: Bilateral lower extremity arterial Doppler ultrasound. FINDINGS: Ankle brachial indices could not be obtained due to patient's continuous muscle spasm/restless leg symptoms. The right superficial femoral artery through the popliteal artery are occluded. The tibial-peroneal trunk is occluded. Reversed flow is observed in the distal anterior tibial artery on the right and monophasic waveform is seen in the proximal anterior tibial artery. There is severe plaquing in the right lower extremity arterial tree. The right superficial femoral artery to posterior tibial artery bypass graft is patent with velocity similar to the prior study. Biphasic and triphasic waveforms. In the left lower extremity relatively normal triphasic and biphasic arterial Doppler waveforms are noted. No left lower extremity focal stenosis or occlusion is seen. Moderate plaquing is seen. Right lower extremity arterial Doppler velocity chart: Right SWING SAW OPERATOR PSV 132 cm/S Profundal 126 Proximal SFA occluded Mid SFA occluded Distal SFA occluded Popliteal occluded Proximal DEMETRIO 82 Tibial-peroneal trunk occluded Proximal BRANCH MECHANIC 83 Distal BRANCH MECHANIC 75 Distal DEMETRIO reversed flow Right SFA to posterior tibial artery bypass graft chart: Proximal graft 89 cm/S Mid graft 65 Distal graft 70 Knee level 66 Distal anastomosis 74 Left lower extremity arterial Doppler velocity chart: Left SWING SAW OPERATOR PSV 108 cm/S Profundal 100 Proximal SFA 99 Mid SFA 90 Distal SFA 110 Popliteal 82 Proximal DEMETRIO 77 Tibial-peroneal trunk 50 Proximal BRANCH MECHANIC 46 Distal BRANCH MECHANIC 47 Distal DEMETRIO 65 IMPRESSION: Occluded [place] SFA and popliteal on the right with patent graft. Findings similar to the prior study. No high-grade stenosis or occlusion on the left. <Electronically signed by Best Borges > 05/30/20 [id number]
== END ==
LOC: M RAD 15:39
PROVIDERS: ATTEND Physician Assistant
DX: I70.213 Atherosclerosis of native arteries of extremities with intermittent claudication, bilateral legs (principal)

== ENCOUNTER → 2020-05-30 | Outpatient (REF) | payer MEDICARE ==
[2020-05-30 13:44] LABS: BASO # 0.1 10^3/uL (0.0-0.2); BASO % 0.6 % (0.0-1.0); EOS # 0.1 10^3/uL (0.0-0.5); EOS % 1.8 % (0.0-3.0); HEMATOCRIT 33.1 % (42.0-52.0); HEMOGLOBIN 10.1 g/dl (13.5-17.5); LYMPH # 1.6 10^3/uL (1.5-5.0); LYMPH % 21.1 % (24.0-44.0); MEAN CORPUSCULAR HEMOGLOBIN 23.4 pg (27.0-33.0); MEAN CORPUSCULAR HGB CONC 30.5 g/dl (32.0-36.5); MEAN CORPUSCULAR VOLUME 76.6 fl (80.0-96.0); MONO # 0.8 10^3/uL (0.0-0.8); MONO % 10.9 % (2.0-8.0); NEUTROPHILS % 65.1 % (36.0-66.0); PLATELET COUNT, AUTOMATED 542 10^3/uL (150-450); RED BLOOD COUNT 4.32 10^6/uL (4.30-6.10); WHITE BLOOD COUNT 7.7 10^3/uL (4.0-10.0)
[2020-05-30 14:21] LABS: FERRITIN 34 NG/ML (26-388); IRON (FE) 16 UG/DL (65-175)
== END ==
LOC: M SFHCPLAZ 10:37
PROVIDERS: ATTEND Physician Assistant Medical
DX: K92.2 Gastrointestinal hemorrhage, unspecified (principal)

== ENCOUNTER 2020-06-05 12:08 | Outpatient (CLI) | payer MEDICARE ==
[~2020-06-05] VITALS: Ht 177.8 cm; Wt 94.5 kg
[2020-06-05] MEDS ORDERED: FERRIC CARBOXYMALTOSE INJ 750 MG, VIAL MATE ADAPTER 1 EACH in NS 250 ML IV ONE (12:30)
[2020-06-05] MEDS ORDERED: ACETAMINOPHEN 325 MG TAB PO ONE (12:30)
[2020-06-05] MEDS ORDERED: diphenhydrAMINE 25MG CAP PO ONE (12:30)
[2020-06-05 12:44] VITALS: BP 149/69
[2020-06-05 13:00] VITALS: BP 141/63
[2020-06-05 14:00] VITALS: BP 149/71
[2020-06-05 14:49] VITALS: BP 154/68
[2020-06-05 15:54] VITALS: BP 164/79
== END 2020-06-05 15:55 | disposition home or self-care (01) ==
LOC: M INFU 12:08
PROVIDERS: ATTEND Physician Assistant Medical
DX: D50.9 Iron deficiency anemia, unspecified (principal)
CPT/HCPCS: 96365; 96366; J1439

== ENCOUNTER 2020-06-12 12:45 | Outpatient (CLI) | payer MEDICARE ==
[~2020-06-12] VITALS: Ht 177.8 cm; Wt 94.3 kg
[~2020-06-12 12:45] MED LIST changes: +ACETAMINOPHEN TAB 650MG DOSE (2X325MG) PO ONE; +FERRIC CARBOXYMALTOSE INJ 750 MG, VIAL MATE ADAPTER 1 EACH in NS 250 ML IV ONE; +NS 1,000 ML IV SCH; +diphenhydrAMINE 25MG CAP PO ONE
[2020-06-12 14:35] VITALS: BP 126/67
== END 2020-06-12 14:40 | disposition home or self-care (01) ==
LOC: M INFU 12:45
PROVIDERS: ATTEND Physician Assistant Medical
DX: D50.9 Iron deficiency anemia, unspecified (principal)
CPT/HCPCS: 96365; J1439

== ENCOUNTER → 2020-06-18 | Outpatient (REF) | payer MEDICARE ==
[~2020-06-18] MED LIST changes: -ACETAMINOPHEN TAB 650MG DOSE (2X325MG) PO ONE; -FERRIC CARBOXYMALTOSE INJ 750 MG, VIAL MATE ADAPTER 1 EACH in NS 250 ML IV ONE; -NS 1,000 ML IV SCH; -diphenhydrAMINE 25MG CAP PO ONE
[2020-06-18 15:28] LABS: BASO # 0.1 10^3/uL (0.0-0.2); BASO % 0.7 % (0.0-1.0); EOS # 0.2 10^3/uL (0.0-0.5); EOS % 1.7 % (0.0-3.0); HEMATOCRIT 37.1 % (42.0-52.0); HEMOGLOBIN 11.4 g/dl (13.5-17.5); LYMPH # 1.5 10^3/uL (1.5-5.0); LYMPH % 16.9 % (24.0-44.0); MEAN CORPUSCULAR HEMOGLOBIN 25.6 pg (27.0-33.0); MEAN CORPUSCULAR HGB CONC 30.7 g/dl (32.0-36.5); MEAN CORPUSCULAR VOLUME 83.4 fl (80.0-96.0); MONO # 0.9 10^3/uL (0.0-0.8); MONO % 9.9 % (2.0-8.0); NEUTROPHILS # 6.4 10^3/uL (1.5-8.5); NEUTROPHILS % 70.2 % (36.0-66.0); PLATELET COUNT, AUTOMATED 418 10^3/uL (150-450); RED BLOOD COUNT 4.45 10^6/uL (4.30-6.10); WHITE BLOOD COUNT 9.1 10^3/uL (4.0-10.0)
[2020-06-18 16:03] LABS: FERRITIN 754 NG/ML (26-388); IRON (FE) 66 UG/DL (65-175)
== END ==
LOC: M SFHCPLAZ 12:41
PROVIDERS: ATTEND Physician Assistant Medical
DX: D50.9 Iron deficiency anemia, unspecified (principal)

== ENCOUNTER → 2020-08-07 | Outpatient (CLI) | payer MEDICARE ==
[2020-08-07 15:41] LABS: BASO # 0.1 10^3/uL (0.0-0.2); BASO % 0.6 % (0.0-1.0); EOS # 0.1 10^3/uL (0.0-0.5); EOS % 0.6 % (0.0-3.0); HEMATOCRIT 47.2 % (42.0-52.0); HEMOGLOBIN 15.6 g/dl (13.5-17.5); LYMPH # 1.6 10^3/uL (1.5-5.0); LYMPH % 20.6 % (24.0-44.0); MEAN CORPUSCULAR HEMOGLOBIN 28.5 pg (27.0-33.0); MEAN CORPUSCULAR HGB CONC 33.1 g/dl (32.0-36.5); MEAN CORPUSCULAR VOLUME 86.1 fl (80.0-96.0); NEUTROPHILS # 5.2 10^3/uL (1.5-8.5); NEUTROPHILS % 65.7 % (36.0-66.0); PLATELET COUNT, AUTOMATED 340 10^3/uL (150-450); RED BLOOD COUNT 5.48 10^6/uL (4.30-6.10); WHITE BLOOD COUNT 7.9 10^3/uL (4.0-10.0)
[2020-08-07 16:08] LABS: FERRITIN 77 NG/ML (26-388); IRON (FE) 60 UG/DL (65-175)
[2020-08-07 16:17] LABS: VITAMIN B12 LEVEL 388 PG/ML (247-911)
[2020-08-07 16:34] LABS: HEMOGLOBIN A1c 5.4 %
== END ==
LOC: M PLALAB 11:44
PROVIDERS: ATTEND Physician Assistant Medical
DX: D50.9 Iron deficiency anemia, unspecified (principal); G62.9 Polyneuropathy, unspecified; Z79.899 Other long term (current) drug therapy

== ENCOUNTER → 2020-10-08 | Outpatient (CLI) | payer MEDICARE ==
[2020-10-08 14:29] LABS: BASO # 0.1 10^3/uL (0.0-0.2); BASO % 0.6 % (0.0-1.0); EOS # 0.1 10^3/uL (0.0-0.5); EOS % 0.8 % (0.0-3.0); HEMOGLOBIN 16.8 g/dl (13.5-17.5); LYMPH # 1.4 10^3/uL (1.5-5.0); LYMPH % 17.7 % (24.0-44.0); MEAN CORPUSCULAR HEMOGLOBIN 31.2 pg (27.0-33.0); MEAN CORPUSCULAR VOLUME 89.2 fl (80.0-96.0); MONO % 12.7 % (2.0-8.0); NEUTROPHILS # 5.2 10^3/uL (1.5-8.5); NEUTROPHILS % 67.4 % (36.0-66.0); PLATELET COUNT, AUTOMATED 319 10^3/uL (150-450); RED BLOOD COUNT 5.38 10^6/uL (4.30-6.10); WHITE BLOOD COUNT 7.7 10^3/uL (4.0-10.0)
[2020-10-08 15:41] LABS: ALBUMIN 4.1 GM/DL (3.2-5.2); ALT/SGPT 50 U/L (12-78); BILIRUBIN,TOTAL 0.6 MG/DL (0.2-1.0); BLOOD UREA NITROGEN 10 MG/DL (7-18); CALCIUM LEVEL 9.7 MG/DL (8.8-10.2); CARBON DIOXIDE LEVEL 32 MEQ/L (21-32); CHLORIDE LEVEL 96 MEQ/L (98-107); CHOLESTEROL LEVEL 181 MG/DL (<200); CHOLESTEROL RISK RATIO 3.351 (<5); CPK CREATINE PHOSPHOKINASE 186 U/L (39-308); CREATININE FOR GFR 0.71 MG/DL (0.70-1.30); FERRITIN 94 NG/ML (26-388); FREE T4 0.84 NG/DL (0.76-1.46); GLOMERULAR FILTRATION RATE > 60.0 (>49); GLUCOSE, FASTING 116 MG/DL (70-100); HDL CHOLESTEROL 54 MG/DL (>40); IRON (FE) 83 UG/DL (65-175); LDL CHOLESTEROL 107 MG/DL (<100); NON-HDL-C 127 MG/DL; POTASSIUM SERUM 4.3 MEQ/L (3.5-5.1); SODIUM LEVEL 135 MEQ/L (136-145); TOTAL PROTEIN 7.3 GM/DL (6.4-8.2); TRIGLYCERIDES LEVEL 100 MG/DL (<150)
== END ==
LOC: M PLALAB 09:42
PROVIDERS: ATTEND Physician Assistant Medical
DX: D50.9 Iron deficiency anemia, unspecified (principal); E78.00 Pure hypercholesterolemia, unspecified; F41.8 Other specified anxiety disorders
CPT/HCPCS: 36415; 80053; 80061; 82550; 82728; 83540; 84439; 84443; 85025; G0463

== ENCOUNTER → 2020-10-10 | Outpatient (CLI) | payer MEDICARE ==
--- NOTE | 2020-10-10 10:11 | REP ---
INDICATION: N63.10 R BREAST MASS. Tender, cystic mass under right nipple. COMPARISON: None. TECHNIQUE: Targeted retroareolar right breast sonography. FINDINGS: Targeted retroareolar right breast sonography demonstrates hypoechoic breast parenchyma beneath the nipple consistent with gynecomastia. No masslike lesion or acoustic shadowing is seen. Low shear wave elastography number, 8.95 K PA. IMPRESSION: BI-RADS category 2 benign findings. Gynecomastia pattern. Clinical follow-up is advised. <Electronically signed by Best Borges > 10/10/20 1007
== END ==
LOC: M WHC 09:12
PROVIDERS: ATTEND Physician Assistant Medical
DX: N63.15 Unspecified lump in the right breast, overlapping quadrants (principal)

== ENCOUNTER → 2020-12-11 | Outpatient (CLI) | payer MEDICARE ==
[~2020-12-11] MED LIST changes: +ATOR80TA59 PO; +BACL1TAB9; +BACL1TAB9 PO; +FERR32TA PO; +FOLI1TAB11 PO; +METO25TA4 PO; +NORT10CA2; +NORT10CA2 PO; +NORT25CA2 PO; +VITMTA PO
--- NOTE | 2020-12-11 12:22 | REP ---
INDICATION: PAD COMPARISON: None. TECHNIQUE: Real-time sonographic evaluation of the bilateral lower extremity arteries with Doppler FINDINGS: All numeric values represent peak systolic velocities in cm/SEC On the right: Within the bypass graph from the superficial femoral artery to the posterior tibial artery velocities are as follows: SFA pre graft: 133 monophasic Proximal bypass graft: 69.8 biphasic Mid bypass graft: 40.6 biphasic Distal bypass graft: 45.9 biphasic Bypass graft at the knee 39.2 biphasic Bypass graft at the HYDROGRAPHIC ENGINEER: 51.1 biphasic The ankle brachial index was unobtainable. CUSTOMER RELATIONS ASSISTANT: 90.5 triphasic Profunda: 130 biphasic All portions of the superficial femoral artery, popliteal artery, and tibioperoneal trunk are occluded. HYDROGRAPHIC ENGINEER proximal: 77.2 triphasic HYDROGRAPHIC ENGINEER distal 84.5 biphasic Peroneal proximal occluded Peroneal distal reversed DEMETRIO proximal: 35.9 biphasic DEMETRIO distal: Reversed On the left: The ankle brachial index is unobtainable. CUSTOMER RELATIONS ASSISTANT: 129 biphasic Profunda: 39.5 biphasic SFA proximal: 93.2 triphasic SFA Mid: 123 triphasic SFA distal: 93.2 triphasic Popliteal: 69.4 triphasic Tibioperoneal trunk: 48.3 biphasic HYDROGRAPHIC ENGINEER proximal: 36.4 biphasic HYDROGRAPHIC ENGINEER distal: 35.7 biphasic Peroneal proximal: 27 biphasic Peroneal distal: 12.8 monophasic DEMETRIO proximal: 63.9 triphasic DEMETRIO distal: 59.6 monophasic Severe plaque formation was seen on the right as described above with areas of occlusion. And revascularization. Moderate to severe plaque formation was seen on the left without evidence of a focal stenosis. IMPRESSION: As above <Electronically signed by Uriel Lam > 12/11/20 [id number]
== END ==
LOC: M RAD 09:32
PROVIDERS: ATTEND Physician Assistant Medical
DX: I73.9 Peripheral vascular disease, unspecified (principal); I74.3 Embolism and thrombosis of arteries of the lower extremities

== ENCOUNTER 2020-12-12 17:21 | Inpatient (IN) | payer MEDICARE ==
[~2020-12-12] VITALS: Ht 180.3 cm; Wt 98.6 kg
[~2020-12-12 17:21] MED LIST changes: -ATOR80TA59 PO; -BACL1TAB9; -BACL1TAB9 PO; -FERR32TA PO; -FOLI1TAB11 PO; -METO25TA4 PO; -NORT10CA2; -NORT10CA2 PO; -NORT25CA2 PO; -VITMTA PO
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
--- OUTSIDE RECORDS SUMMARY | 2020-12-12 17:28 | CCD | Continuity of Care Document ---
Author Author Horace DWYER MD Organization Unknown Address [address] [facility] [address], [address] [place] [address] Phone [phone] Care Team Providers Care Mother Helper Name Role Phone Sonal Dixon AUTM [phone] AUTM Unavailable Problems Active Problems Provider Date Screening for [...] SIG Qnty Indications Ordering Provide r Date Folic Acid 1mg Tablets one tablet by mouth every day 90milton Hendrickson MD 06/21/2020 Plavix 75mg Tablets 1 by mouth every day 90milton Hendrickson MD 09/04/2017 Mirtazapine 7.5mg Tablets 1 t ab po qd Unknown Sucralfate 1gm Tablets Take One Tablet By Mouth Twice A Day On An Empty Stomach Unknown Aspirin [address] 1 by mouth every day Unknown Ferrous Gluconate 324(38Fe) mg Tab lets 1 tab by mouth every day after meals Unknown Docusate Sodium 100mg Capsules 1 by mouth every day Unknown Vitamin C 500mg Capsules 1 tab by mouth qd Unknown Baclofen 10mg Tablets 1 tab by mouth three times a day Unknown Flomax 0.4mg Capsules 1 every day Unknown Nortriptyline HCL 50mg Capsules prn Sonal Dixon F.N.P. Diclofenac Sodium 1% Gel apply to affected area as needed Unknown Chlorthalidone 25mg Tablets 1 po daily Unknown Pantoprazole Sodium 40mg Tablets D R daily -- one tablet Unknown Multivitamins Capsules once a day Unknown Lipitor 80mg Tablets Once Kassandra ly Unknown Celexa 40mg Tablets 1 by mouth every day Unknown Immunizations Description No Information Available Vital Signs Date Vital Result Comment 10/22/2020 1:55pm Heart Rate 78 /min Body Temperature 97.3 F Height 71 inches 5'11" Weight 214.50 lb BMI (Body Mass Index) 29.9 kg/m2 [place] Body Weight 172 lb Weight 97.297 kg BSA (Body Surface Area) 2.17 m2 06/21/2020 11:07am BP Systolic 162 mmHg BP Diastolic 88 mmHg Height 71 inches 5'11" Weight 206.12 lb BMI (Body Mass Index) 28.7 kg/m2 [place] Body Weight 172 lb Weight 93.498 kg BSA (Body Surface Area) 2.14 m2 Results Description No Information Available Procedures Date Code Description Status 10/22/2020 51332 Office/Outpatient Established Mo d MDM 30-39 Min Completed 06/21/2020 44339 Office/Outpatient Established Lo w MDM 20-29 Min Completed Medical Devices Description No Information Available Encounters Type Date Location Provider Dx Diagnosis Office Visit 10/22/2020 2:00p [facility] Hanna Dwyer MD I70.203 Unsp athscl [place] arteries of extremities, bilateral legs I65.23 Occlusion and stenosis of bi lateral carotid arteries G54.4 Lumbosacral root disorders, not elsewhere classified E78.5 Hyperlipidemia, unspecified Office Visit 06/21/2020 10:45a [facility] Marbella low MD I70.203 Unsp athscl [place] arteries of extremiti es, bilateral legs Assessments Date Code Description Provider 10/22/2020 I70.203 Unspecified atherosc lerosis of [place] arteries of extremities, bilateral legs Angelica Dwyer MD 10/22/2020 I65.23 Occlusion and stenosis of bilate ral carotid arteries Angelica Dwyer MD 10/22/2020 G54.4 Lumbosacral root disorders, not elsewhere classified Angelica Dwyer MD 10/22/2020 E78.5 Hyperlipidemia, unspecified Randell Dwyer MD 06/21/2020 I70.203 Unspecified atherosc lerosis of [place] arteries of extremities, bilateral legs Marbella Hendrickson MD Plan of Treatment 10/22/2020 - Angelica Dwyer MD* I70.203 Unspecified atherosclerosis of [place] arteries of extremities, bilateral legs* Comments:* PAD - H/O right leg arterial bypass in 2014 - which is patent. 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 Plan:1. Suggest follow up in 6 months for lower extremities arterial surveillance with Duplex US. No further vascular intervention is indicated or planned at the current time.Continue Plavix and Lipitor2. Follow with Neuro spine surgeon.I had a detailed discussion with the patient, regarding his symptoms, and reassured him, about the nature of his symptoms. He understands and agrees to the plan of care. * I65.23 Occlusion and stenosis of bilateral carotid arteries* Comments:* Mildly elevated SOUMYA PSVs on US - asymptomatic .No further intervention recommended * G54.4 Lumbosacral root disorders, not elsewhere classified* Comments:* See #1 * E78.5 Hyperlipidemia, unspecified* Comments:* Continue Lipitor Functional Status Description No Information Available Mental Status Description No Information Available Referrals Refer to Reason for Referral Status Appt Date Angelica Dwyer MD PERIPHERAL VASCULAR DISEASE LOWE R EXTREMITY Scheduled 10/22/[address] [id number] [phone]
--- OUTSIDE RECORDS SUMMARY | 2020-12-12 17:28 | CCD | Continuity of Care Document ---
Author Author Horace DWYER MD Organization Unknown Address [address], [address] [place] [address] Phone [phone] Care Team Providers Care Physician Practice Administrator Name Role Phone Sonal Dixon AUTM AUTM Unavailable Problems Active Problems Provider Date [...] lb BMI (Body Mass Index) 29.9 kg/m2 [place] Body Weight 172 lb Weight 97.297 kg BSA (Body Surface Area) 2.17 m2 06/21/2020 11:07am BP Systolic 162 mmHg BP Diastolic 88 mmHg Height 71 inches 5'11" Weight 206.12 lb BMI (Body Mass Index) 28.7 kg/m2 [place] Body Weight 172 lb Weight 93.498 kg BSA (Body Surface Area) 2.14 m2 Results Description No Information Available Procedures Date Code Description Status 06/21/2020 72591 Office/Outpatient Established Lo w MDM 20-29 Min Completed Medical Devices Description No Information Available Encounters Type Date Location Provider Dx Diagnosis Office Visit 06/21/2020 10:45a [facility] Marbella low MD I70.203 Unsp athscl [place] arteries of extremiti es, bilateral legs Assessments Date Code Description Provider 06/21/2020 I70.203 Unspecified atherosc lerosis of [place] arteries of extremities, bilateral legs Marbella Hendrickson MD Plan of Treatment No Information Available Functional Status Description No Information Available Mental Status Description No Information Available Referrals Refer to Dr Reason for Referral Status Appt Date Angelica Dwyer MD PERIPHERAL VASCULAR DISEASE LOWE R EXTREMITY Scheduled 10/22/2020 [address] [facility] [address] [place] [address] [phone]
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
[2020-12-12] MEDS ORDERED: NORT10CA2 (17:30)
[2020-12-12] MEDS ORDERED: BACL1TAB9 (17:30)
--- OUTSIDE RECORDS SUMMARY | 2020-12-12 17:30 | CCD ---
Author Author [facility] Organization [facility] Address Unknown Phone Unavailable Care Team Providers Care Ict Development Manager Name Role Phone Elke ADRIAN MD Unavailable Unavailable Elke ADRIAN MD Unavailable Unavailable Elke ADRIAN MD Unavailable Unavailable Elke ADRIAN MD Unavailable Unavailable Elke ADRIAN MD Unavailable Unavailable EMILY DWYER MD Unavailable Unavailable EMILY DWYER MD Unavailable Unavailable TISHA WILHELM MD Unavailable Unavailable TISHA WILHELM MD Unavailable Unavailable TISHA WILHELM MD Unavailable Unavailable TISHA WILHELM MD Unavailable Unavailable TISHA WILHELM MD Unavailable Unavailable TISHA WILHELM MD Unavailable Unavailable TISHA WILHELM MD Unavailable Unavailable TISHA WILHELM MD Unavailable Unavailable TISHA WILHELM MD Unavailable Unavailable TISHA WILHELM MD Unavailable Unavailable TISHA WILHELM MD Unavailable Unavailable TISHA WILHELM MD Unavailable Unavailable TISHA WILHELM MD Unavailable Unavailable TISHA WILHELM MD Unavailable Unavailable TISHA WILHELM MD Unavailable Unavailable TISHA WILHELM MD Unavailable Unavailable TISHA WILHELM MD Unavailable Unavailable TISHA WILHELM MD Unavailable Unavailable TISHA WILHELM MD Unavailable Unavailable TISHA WILHELM MD Unavailable Unavailable TISHA WILHELM MD Unavailable Unavailable TISHA WILHELM MD Unavailable Unavailable TISHA WILHELM MD Unavailable Unavailable TISHA WILHELM MD Unavailable Unavailable TISHA WILHELM MD Unavailable Unavailable TISHA WILHELM MD Unavailable Unavailable REINDL, TISHA SINGLETON Unavailable [...] Unavailable Unavailable REINDL, TISHA SINGLETON Unavailable Unavailable El-Khally, A Ziad MD Unavailable [...] A Ziad MD Unavailable Unavailable El-Khally, A Marla SINGLETON Unavailable Unavailable El-Khally, A Marla MD Unavailable Unavailable El-Khally, A Marla SINGLETON Unavailable Unavailable El-Khally, A Marla SINGLETON Unavailable Unavailable El-Khally, A Marla SINGLETON Unavailable Unavailable El-Khally, A Marla MD Unavailable Unavailable El-Khally, A Marla MD Unavailable Unavailable Swatsworth, R Rob PA Unavailable Unavailable Swatsworth, R Rob PA Unavailable Unavailable Swatsworth, R Rob PA Unavailable Unavailable Swatsworth, R Rob PA Unavailable Unavailable Swatsworth, R Rob PA Unavailable Unavailable Swatsworth, R Rob PA Unavailable Unavailable Swatsworth, R Rob PA Unavailable Unavailable Swatsworth, R Rob PA Unavailable Unavailable Swatsworth, R Rob PA Unavailable Unavailable Swatsworth, R Rbo PA Unavailable Unavailable Swatsworth, R Rob PA Unavailable Unavailable Swatsworth, R Rob PA Unavailable Unavailable Swatsworth, R Rob PA Unavailable Unavailable Swatsworth, R Rob PA Unavailable Unavailable Swatsworth, R Rob PA Unavailable Unavailable Swatsworth, R Rob PA Unavailable Unavailable Swatsworth, R Rob PA Unavailable Unavailable Swatsworth, R Rob PA Unavailable Unavailable Swatsworth, R Rob PA Unavailable Unavailable Swatsworth, R Rob PA Unavailable Unavailable Swatsworth, R Rob PA Unavailable Unavailable Swatsworth, R Rob PA Unavailable Unavailable Swatsworth, R Rob PA Unavailable Unavailable Swatsworth, R Rob PA Unavailable Unavailable Swatsworth, R Rob PA Unavailable Unavailable Swatsworth, R Rob PA Unavailable Unavailable Swatsworth, R Rob PA Unavailable Unavailable Swatsworth, R Rob PA Unavailable Unavailable Swatsworth, R Rob PA Unavailable Unavailable Swatsworth, R Rob PA Unavailable Unavailable Swatsworth, R Rob PA Unavailable Unavailable Swatsworth, R Rob PA Unavailable Unavailable Swatsworth, R Rob PA Unavailable Unavailable Swatsworth, R Rob PA Unavailable Unavailable Swatsworth, R Rob PA Unavailable Unavailable Swatsworth, R Rob PA Unavailable Unavailable Swatsworth, R Rob PA Unavailable Unavailable Swatsworth, R Rob PA Unavailable Unavailable Swatsworth, R Rob PA Unavailable Unavailable Swatsworth, R Rob PA Unavailable Unavailable Swatsworth, R Rob PA Unavailable Unavailable Swatsworth, R Rob PA Unavailable Unavailable Swatsworth, R Rob PA Unavailable Unavailable Swatsworth, R Rob PA Unavailable Unavailable Swatsworth, R Rob PA Unavailable Unavailable Swatsworth, R Rob PA Unavailable Unavailable Swatsworth, R Rob PA Unavailable Unavailable Swatsworth, R Rob PA Unavailable Unavailable Swatsworth, R Rob PA Unavailable Unavailable Cederstrand, Mallory Tyson MD Unavailable Unavailable Cederstrand, Mallory Tyson MD Unavailable Unavailable Cederstrand, Mallory Tyson MD Unavailable Unavailable Cederstrand, Mallory Tyson MD Unavailable Unavailable Cederstrand, Mallory Tyson MD Unavailable Unavailable Cederstrand, Mallory Tyson MD Unavailable Unavailable Cederstrand, Mallory Tyson MD Unavailable Unavailable Cederstrand, Mallory Tyson MD Unavailable Unavailable Cederstrand, Mallory Tyson MD Unavailable Unavailable Cederstrand, Mallory Tyson MD Unavailable Unavailable Cederstrand, Mallory Tyson MD Unavailable Unavailable Cederstrand, Mallory Tyson MD Unavailable Unavailable Cederstrand, Mallory Tyson MD Unavailable Unavailable Cederstrand, Mallory Tyson MD Unavailable Unavailable Cederstrand, Mallory Tyson MD Unavailable Unavailable Cederstrand, Mallory Tyson MD Unavailable Unavailable Detor, M Isac DRIVE AWAY DRIVER Unavailable Unavailable Detor, M Isac DRIVE AWAY DRIVER Unavailable Unavailable Detor, M Isac DRIVE AWAY DRIVER Unavailable Unavailable Detor, M Isac DRIVE AWAY DRIVER Unavailable Unavailable Detor, M Isac DRIVE AWAY DRIVER Unavailable Unavailable Detor, M Isac DRIVE AWAY DRIVER Unavailable Unavailable Detor, M Isac DRIVE AWAY DRIVER Unavailable Unavailable Detor, M Isac DRIVE AWAY DRIVER Unavailable Unavailable Detor, M Isac DRIVE AWAY DRIVER Unavailable Unavailable Detor, M Isac DRIVE AWAY DRIVER Unavailable Unavailable Detor, M Isac DRIVE AWAY DRIVER Unavailable Unavailable Detor, M Isac DRIVE AWAY DRIVER Unavailable Unavailable Detor, M Isac DRIVE AWAY DRIVER Unavailable Unavailable Detor, M Isac DRIVE AWAY DRIVER Unavailable Unavailable Detor, M Isac DRIVE AWAY DRIVER Unavailable Unavailable Detor, M Isac DRIVE AWAY DRIVER Unavailable Unavailable Detor, M Isac DRIVE AWAY DRIVER Unavailable Unavailable Detor, M Isac DRIVE AWAY DRIVER Unavailable Unavailable Detor, M Isac DRIVE AWAY DRIVER Unavailable Unavailable Detor, M Isac DRIVE AWAY DRIVER Unavailable Unavailable Detor, M Isac DRIVE AWAY DRIVER Unavailable Unavailable Detor, M Isac DRIVE AWAY DRIVER Unavailable Unavailable Detor, M Isac DRIVE AWAY DRIVER Unavailable Unavailable Detor, M Isac DRIVE AWAY DRIVER Unavailable Unavailable Detor, M Isac DRIVE AWAY DRIVER Unavailable Unavailable Detor, M Isac DRIVE AWAY DRIVER Unavailable Unavailable Detor, M Isac DRIVE AWAY DRIVER Unavailable Unavailable Detor, M Isac DRIVE AWAY DRIVER Unavailable Unavailable Detor, M Isac DRIVE AWAY DRIVER Unavailable Unavailable Detor, M Isac DRIVE AWAY DRIVER Unavailable Unavailable Detor, M Isac DRIVE AWAY DRIVER Unavailable Unavailable Detor, M Isac DRIVE AWAY DRIVER Unavailable Unavailable Detor, M Isac DRIVE AWAY DRIVER Unavailable Unavailable Detor, M Isac DRIVE AWAY DRIVER Unavailable Unavailable Detor, M Isac DRIVE AWAY DRIVER Unavailable Unavailable Detor, M Isac DRIVE AWAY DRIVER Unavailable Unavailable Detor, M Isac DRIVE AWAY DRIVER Unavailable Unavailable Calaveras, V ZARINA PA-C Unavailable Unavailable Calaveras, V ZRAINA PA-C Unavailable Unavailable Otto, V ZARINA PA-C Unavailable Unavailable Otto, V ZARINA PA-C Unavailable Unavailable Calaveras, V ZARINA PA-C Unavailable Unavailable Otto, V ZARINA PA-C Unavailable Unavailable Calaveras, V ZARINA PA-C Unavailable Unavailable Calaveras, V ZARINA PA-C Unavailable Unavailable Calaveras, V ZARINA PA-C Unavailable Unavailable Calaveras, V ZARINA PA-C Unavailable Unavailable Calaveras, V ZARINA PA-C Unavailable Unavailable Calaveras, V ZARINA PA-C Unavailable Unavailable Otto, V ZARINA PA-C Unavailable Unavailable Calaveras, V ZARINA PA-C Unavailable Unavailable Mello, L Marianna RPA Unavailable [...] Unavailable Mello, L Marianna RPA Unavailable Unavailable Ghassan, L Jo-Ann GROUTMAN Unavailable Unavailable Ghassan, L Jo-Ann GROUTMAN Unavailable Unavailable Ghassan, L Jo-Ann GROUTMAN Unavailable Unavailable Ghassan, L Jo-Ann GROUTMAN Unavailable Unavailable Ghassan, L Jo-Ann GROUTMAN Unavailable Unavailable Ghassan, L Jo-Ann GROUTMAN Unavailable Unavailable Ghassan, L Jo-Ann GROUTMAN Unavailable Unavailable Ghassan, L Jo-Ann GROUTMAN Unavailable Unavailable Ghassan, L Jo-Ann GROUTMAN Unavailable Unavailable Ghassan, L Jo-Ann GROUTMAN Unavailable Unavailable Ghassan, L Jo-Ann GROUTMAN Unavailable Unavailable Ghassan, L Jo-Ann GROUTMAN Unavailable Unavailable Ghassan, L Jo-Ann GROUTMAN Unavailable Unavailable Ghassan, L Jo-Ann GROUTMAN Unavailable Unavailable Ghassan, L Jo-Ann GROUTMAN Unavailable Unavailable Ghassan, L Jo-Ann GROUTMAN Unavailable Unavailable Ghassan, L Jo-Ann GROUTMAN Unavailable Unavailable Ghassan, L Jo-Ann GROUTMAN Unavailable Unavailable Oneil Genao MD Unavailable Unavailable Oneil Genao MD Unavailable Unavailable Oneil Genao MD Unavailable Unavailable Oneil Genao MD Unavailable Unavailable Oneil Genao MD Unavailable Unavailable Oneil Genao MD Unavailable Unavailable Oneil Genao MD Unavailable Unavailable Oneil Genao MD Unavailable Unavailable Oneil Genao MD Unavailable Unavailable Oneil Genao MD Unavailable Unavailable Oneil Genao MD Unavailable Unavailable Oneil Genao MD Unavailable Unavailable Oneil Genao MD Unavailable Unavailable Oneil Genao MD Unavailable Unavailable Oneil Genao MD Unavailable Unavailable Oneil Genao MD Unavailable Unavailable Oneil Genao MD Unavailable Unavailable Oneil Genao MD Unavailable Unavailable Oneil Genao MD Unavailable Unavailable Oneil Genao MD Unavailable Unavailable Oneil Genao MD Unavailable Unavailable Oneil Genao MD Unavailable Unavailable Oneil Genao MD Unavailable Unavailable Oneil Genao MD Unavailable Unavailable Oneil Genao MD Unavailable Unavailable Oneil Genao MD Unavailable Unavailable Oneil Genao MD Unavailable Unavailable Oneil Genao MD Unavailable Unavailable Oneil Genao MD Unavailable Unavailable Oneil Genao MD Unavailable Unavailable Oneil Genao MD Unavailable Unavailable Oneil Genao MD Unavailable Unavailable Oneil Genao MD Unavailable Unavailable Oneil Genao MD Unavailable Unavailable Oneil Genao MD Unavailable Unavailable Oneil Genao MD Unavailable Unavailable Oneil Genao MD Unavailable Unavailable Oneil Genao MD Unavailable Unavailable Oneil Genao MD Unavailable Unavailable Oneil Genao MD Unavailable Unavailable Oneil Genao MD Unavailable Unavailable Oneil Genao MD Unavailable Unavailable Oneil Genao MD Unavailable Unavailable Oneil Genao MD Unavailable Unavailable Oneil Genao MD Unavailable Unavailable Oneil Genao MD Unavailable Unavailable Oneil Genao MD Unavailable Unavailable Oneil Genao MD Unavailable Unavailable Oneil Genao MD Unavailable Unavailable Oneil Genao MD Unavailable Unavailable Oneil Genao MD Unavailable Unavailable Oneil Genao MD Unavailable Unavailable Oneil Genao MD Unavailable Unavailable Oneil Genao MD Unavailable Unavailable Oneil Genao MD Unavailable Unavailable Oneil Genao MD Unavailable Unavailable Oneil Genao MD Unavailable Unavailable Oneil Genao MD Unavailable Unavailable Oneil Genao MD Unavailable Unavailable Oneil Genao MD Unavailable Unavailable Loyd Villaseñor MD Unavailable Unavailable Loyd Villaseñor MD Unavailable Unavailable Loyd Villaseñor MD Unavailable Unavailable Loyd Villaseñor MD Unavailable Unavailable Loyd Villaseñor MD Unavailable Unavailable Loyd Villaseñor MD Unavailable Unavailable Loyd Villaseñor MD Unavailable Unavailable Janell Villaseñortech Unavailable Unavailable Janell Villaseñortech Unavailable Unavailable Lody Villaseñor MD Unavailable Unavailable Loyd Villaseñor MD Unavailable Unavailable Loyd Villaseñor MD Unavailable Unavailable Loyd Villaseñor MD Unavailable Unavailable Loyd Villaseñor MD Unavailable Unavailable Henry Villaseñorjtech Unavailable Unavailable Loyd Villaseñor MD Unavailable Unavailable Loyd Villaseñor MD Unavailable Unavailable Janell Villaseñortech Unavailable Unavailable Henry Villaseñorjtech Unavailable Unavailable Henry Villaseñorjtech Unavailable Unavailable Henry Villaseñorjtech Unavailable Unavailable Henry Villaseñorjtech Unavailable Unavailable Loyd Villaseñor MD Unavailable Unavailable Henry Villaseñorjtech Unavailable Unavailable Loyd Villaseñor MD Unavailable Unavailable Henry Villaseñorjtech Unavailable Unavailable Henry Villaseñorjtech Unavailable Unavailable Henry Villaseñorjtech Unavailable Unavailable Henry Villaseñorjtech Unavailable Unavailable Henry Villaseñorjtech Unavailable Unavailable Henry Villaseñorjtech Unavailable Unavailable Slezka, Vojtech MD Unavailable Unavailable Slezka, Vojtech MD Unavailable Unavailable Slezka, Vojtech MD Unavailable Unavailable Slezka, Vojtech MD Unavailable Unavailable Slezka, Vojtech MD Unavailable Unavailable Slezka, Vojtech MD Unavailable Unavailable Slezka, Vojtech MD Unavailable Unavailable Slezka, Vojtech MD Unavailable Unavailable Slezka, Vojtech MD Unavailable Unavailable Slezka, Vojtech MD Unavailable Unavailable Slezka, Vojtech MD Unavailable Unavailable Slezka, Vojtech MD Unavailable Unavailable Slezka, Vojtech MD Unavailable Unavailable Slezka, Vojtech MD Unavailable Unavailable Slezka, Vojtech MD Unavailable Unavailable Slezka, Vojtech MD Unavailable Unavailable Slezka, Vojtech MD Unavailable Unavailable Slezka, Vojtech MD Unavailable Unavailable Slezka, Vojtech MD Unavailable Unavailable Slezka, Vojtech MD Unavailable Unavailable Slezka, Vojtech MD Unavailable Unavailable Slezka, Vojtech MD Unavailable Unavailable Slezka, Vojtech MD Unavailable Unavailable Slezka, Vojtech MD Unavailable Unavailable Slezka, Vojtech MD Unavailable Unavailable Slezka, Vojtech MD Unavailable Unavailable Slezka, Vojtech MD Unavailable Unavailable Re-disclosure Warning The records that [...] is protected by Article 27-F of the [facility] Public Health law. If you continue you may have access to information: Regarding HIV / AIDS; Provided by facilities licensed or operated by the [facility] Office of Mental Health; or Provided by the [facility] Office for People With Developmental Disabilities. If such information is present, then the following [facility] mandated warning applies: This information has been [...] Data Source(s) Unknown Male Problem MED[facility] ([facility] Unknown Unknown Problem [facility] ([facility], ) maternal grandfather/father Unknown Unknown Problem [facility] ([facility] Encounters Encounter Providers Location Date Indications Data Source(s ) Unknown [address] [facility] [id number] 11/23/2020 12:00:00 AM EDT eCW1 ([facility]) Unknown [address] [facility] [id number] 11/23/2020 12:00:00 AM EDT eCW1 ([facility]) Outpatient Attender: ROVERTO Alejandra/Deloris/Magdy/Machelle martinez 10/22/2020 02:00:00 PM EDT [facility] ([facility], ) Outpatient [address] [facility] [id number] 10/08/2020 12:00:00 AM EDT eCW1 ([facility]) Unknown [address] [facility] [address] 10/08/2020 12:00:00 AM EDT eCW1 ([facility]) Unknown [address] [facility] [address] 09/19/2020 12:00:00 AM EDT eCW1 ([facility]) Outpatient Attender: ZARINA CHANG 10/2020 12:00:00 AM EDT - 09/17/2020 01:01:54 PM EDT [facility] Unknown [address] [facility] [place] [address] 08/24/2020 12:00:00 AM EDT eCW1 ([facility]) Outpatient [address] [facility] [place] [address] 08/06/2020 12:00:00 AM EDT eCW1 ([facility]) Outpatient Attender: Marbella Alejandra/Deloris/Magdy/ Abdiel 06/21/2020 10:45:00 AM EDT [facility] ([facility]) Outpatient Attender: ZARINA VELAZQUEZ.PARK 07/2020 10:02:28 AM EDT [facility] Unknown [address] [facility] [place] [address] 06/14/2020 12:00:00 AM EDT eCW1 ([facility]) Unknown [address] [facility] [place] [address] 05/31/2020 12:00:00 AM EDT eCW1 ([facility]) Office Visit, Est Pt., Level 4 [address] [place] [address] 05/30/2020 12:00:00 AM EDT eCW1 ([facility]) Outpatient Attender: ZARINA SLOANSJFacundo.PARK 12:00:00 AM EDT [facility] Outpatient Attender: Jo-Ann HIGUERA.TSERING 05/19/19 12:00:00 AM EDT - 05/18/2020 10:52:53 AM EDT [facility] Outpatient Attender: ZARINA MEJIA-SJP.PARK 08/2020 12:00:00 AM EDT - 05/16/2020 12:24:28 PM EDT [facility] Inpatient Admitter: Oneil Genao MDReferrer: VANESSA Dixon ES1-[id number].[id number] 05/02/2020 07:53:31 AM EDT [facility] Inpatient Attender: Oneil Genao MDAdmitter: Oneil lee MD [id number] 05/02/2020 05:24:00 AM EDT - 05/06/2020 04:19:00 PM EDT [facility] Patient discharged. Outpatient Attender: Oneil Genao MDReferrer: Oneil lee MD MOB-MOB.PAT 04/27/2020 10:16:49 AM EDT - 04/27/2020 11:35:52 AM EDT [facility] Outpatient Referrer: Oneil Genao MD MOB-MOB.PAT 04/27 09:32:34 AM EDT - 04/27/2020 09:32:40 AM EDT [facility] Outpatient Attender: ZARINA BURGERP.PARK-SJP.PARK 09/2020 12:00:00 AM EST - 04/16/2020 01:40:49 PM EST [facility] Outpatient [address] [facility] [id number] 04/13/2020 12:00:00 AM EST eCW1 ([facility]) Outpatient Attender: TISHA Alejandra/Deloris/Magdy/Cas bansal 04/04/2020 02:00:00 PM EST [facility] ([facility] Outpatient Attender: Oneil Genao MDReferrer: Oneil lee MD [id number].PL 04/02/2020 12:26:00 PM EST - 04/02/2020 11:59:00 PM EST [facility] Patient discharged. Outpatient Attender: Oneil Genao MDReferrer: Oneil lee MD MOB-MOB.PAT 04/02/2020 10:16:54 AM EST - 04/02/2020 11:35:56 AM EST [facility] Outpatient Referrer: Oneil Genao MD MOB-MOB.PAT 04/02 09:34:30 AM EST - 04/02/2020 09:34:36 AM [facility] Outpatient Attender: ZARINA GUIDRY.PARK-SJP.PARK 05/2020 12:00:00 AM EST - 03/15/2020 10:50:17 AM EST [facility] Outpatient Referrer: Isac MEZA 03/12/2020 03:49:52 P M [facility] Outpatient Referrer: Isac NAVARROP 03/12/2020 03:07:41 P M [facility] MOCAM-MOCAM 02/24/2020 03:01:28 PM EST [facility] Outpatient Attender: Marla Marino MDA dmitter: Marla Marino MDReferrer: Loyd Villaseñor MD [id number] 02/24/2020 06:14:00 AM EST - 02/24/2020 12:35:00 PM EST [facility] Patient discharged. Outpatient [address] [facility] [id number] 02/20/2020 12:00:00 AM EST eCW1 ([facility]) Unknown [facility] [id number] 02/20/2020 12:00:00 AM EST eCW1 ([facility]) Unknown [address] [facility] [id number] 02/20/2020 12:00:00 AM EST eCW1 ([facility]) Unknown [address] [facility] [address] 02/16/2020 12:00:00 AM EST eCW1 ([facility]) Unknown [address] [facility] [id number] 02/14/2020 12:00:00 AM EST eCW1 ([facility]) Outpatient Referrer: Loyd ORTIZPARK-SJP.PARK 05/2020 12:00:00 AM EST - 02/13/2020 12:12:14 PM EST [facility] Unknown [address] [facility] [place] [address] 02/13/2020 12:00:00 AM EST [facility]CW1 [facility]) Outpatient Attender: Loyd Villaseñor MDReferrer: Callie SLOANSJPetarPARK 02/09/2020 12:00:00 AM EST - 02/09/2020 03:04:06 PM EST [facility] Unknown [address] [facility] [address] 02/06/2020 12:00:00 AM EST [facility]CW1 [facility] Outpatient [address] [facility] [address] 01/24/2020 12:00:00 AM EST eCW1 ([facility]) Unknown [address] [facility] [place] [address] 01/19/2020 12:00:00 AM EST eCW1 ([facility]) Unknown [address] [facility] [address] 01/19/2020 12:00:00 AM EST eCW1 ([facility]) Unknown [address] [facility] [address] 01/17/2020 12:00:00 AM EST [facility]CW1 [facility] Outpatient [address] [facility] [address] 01/16/2020 12:00:00 AM EST eCW1 ([facility]) Unknown [address] [facility] [address] [address] 01/03/2020 12:00:00 AM EST eCW1 ([facility]) Outpatient Attender: Marianna Alejandra/Deloris/Magdy/Soy hanley 12/14/2019 09:15:00 AM EST [facility] ([facility] Outpatient [address] [facility] [place] [address] 12/09/2019 12:00:00 AM EDT eCW1 ([facility]) Unknown [address] [facility] [place] [address] 12/09/2019 12:00:00 AM EDT eCW1 ([facility]) Medications Medication Brand Name Start Date Product Form Dose Route Admi nistrative Instructions Pharmacy Instructions Status Indications Reaction Description Data Source(s) 20 mg 12/03/2020 12:00:00 AM EDT tablet 60 TAKE ONE TABLET BY MOUTH TWICE A DAY TAKE ONE TABLET BY MOUTH TWICE A DAY SOLD: 12/05/2020 [facility] 10 mg 12/03/2020 12:00:00 AM EDT capsule 90 TAKE ONE CAPSULE BY MOUTH THREE TIMES A DAY WITH 25MG TAKE ONE CAPSULE BY MOUTH THREE TIMES A DAY WITH 25MG SOLD: 12/05/2020 [facility] 7.5 mg 12/03/2020 12:00:00 AM EDT tablet 30 TAKE TWO TABLETS BY MOUTH EVERY DAY AT BEDTIME TAKE TWO TABLETS BY MOUTH EVERY DAY AT BEDTIME SOLD: [facility] 75 mg 11/24/2020 12:00:00 AM EDT tablet 90 TAKE ONE TABLET BY MOUTH EVERY DAY TAKE ONE TABLET BY MOUTH EVERY DAY SOLD: 11/26/2020 [facility] 80 mg 11/15/2020 12:00:00 AM EDT tablet 30 TAKE ONE TABLET BY MOUTH EVERY DAY TAKE ONE TABLET BY MOUTH EVERY DAY SOLD: 11/22/2020 [facility] Nortriptyline 25 MG Oral Capsule Nortriptyline HCl 25 MG Nortriptyline HCl 25 MG 10/08/2020 12:00:00 AM EDT 1.0 {capsule} acti ve Nortriptyline HCl 25 MG eCW1 ([facility]) atorvastatin 80 MG Oral Tablet Atorvastatin Calcium 80 MG Atorvastatin Calcium 80 MG 10/08/2020 12:00:00 AM EDT 1.0 {tablet} activ e Atorvastatin Calcium 80 MG eCW1 ([facility]) Nortriptyline 25 MG Oral Capsule Nortriptyline HCl 25 MG Nortriptyline HCl 25 MG 10/08/2020 12:00:00 AM EDT 1.0 {capsule} acti ve Nortriptyline HCl 25 MG eCW1 ([facility]) Nortriptyline 25 MG Oral Capsule Nortriptyline HCl 25 MG Nortriptyline HCl 25 MG 10/08/2020 12:00:00 AM EDT 1.0 {capsule} acti ve Nortriptyline HCl 25 MG eCW1 ([facility]) Nortriptyline 25 MG Oral Capsule Nortriptyline HCl 25 MG Nortriptyline HCl 25 MG 10/08/2020 12:00:00 AM EDT 1.0 {capsule} acti ve Nortriptyline HCl 25 MG eCW1 ([facility]) 25 mg 10/08/2020 12:00:00 AM EDT capsule 90 TAKE ONE CAPSULE BY MOUTH THREE TIMES A DAY TAKE ONE CAPSULE BY MOUTH THREE TIMES A DAY SOLD: 10/12/2020 [facility] 25 mg 10/08/2020 12:00:00 AM EDT capsule 90 TAKE ONE CAPSULE BY MOUTH THREE TIMES A DAY TAKE ONE CAPSULE BY MOUTH THREE TIMES A DAY SOLD: 11/22/2020 [facility] atorvastatin 80 MG Oral Tablet Atorvastatin Calcium 80 MG Atorvastatin Calcium 80 MG 10/08/2020 12:00:00 AM EDT 1.0 {tablet} activ e Atorvastatin Calcium 80 MG eCW1 ([facility]) 75 mg 10/08/2020 12:00:00 AM EDT tablet 30 TAKE ONE TABLET BY MOUTH EVERY DAY TAKE ONE TABLET BY MOUTH EVERY DAY SOLD: 10/12/2020 [facility] atorvastatin 80 MG Oral Tablet Atorvastatin Calcium 80 MG Atorvastatin Calcium 80 MG 10/08/2020 12:00:00 AM EDT 1.0 {tablet} activ e Atorvastatin Calcium 80 MG eCW1 ([facility]) atorvastatin 80 MG Oral Tablet Atorvastatin Calcium 80 MG Atorvastatin Calcium 80 MG 10/08/2020 12:00:00 AM EDT 1.0 {tablet} activ e Atorvastatin Calcium 80 MG eCW1 ([facility]) 80 mg 09/27/2020 12:00:00 AM EDT tablet 30 TAKE ONE TABLET BY MOUTH EVERY DAY TAKE ONE TABLET BY MOUTH EVERY DAY SOLD: 09/28/2020 [facility] atorvastatin 40 MG Oral Tablet atorvastatin (LIPITOR) 40 MG tablet atorvastatin (LIPITOR) 40 MG tablet 08/29/2020 12:00:00 AM EDT 40 mg Oral aborted Take 40 mg by mouth daily [facility] pantoprazole 40 MG Delayed Release Oral Tablet PANTOPRAZOLE SODIUM 08/29/2020 12:00:00 AM EDT tablet,delayed release (DR/EC) 60 T REBECCA ONE TABLET BY MOUTH TWICE A DAY TAKE ONE TABLET BY MOUTH TWICE A DAY SOLD: 11/15/2020 [facility] pantoprazole 40 MG Delayed Release Oral Tablet PANTOPRAZOLE SODIUM 08/29/2020 12:00:00 AM EDT tablet,delayed release (DR/EC) 60 T REBECCA ONE TABLET BY MOUTH TWICE A DAY TAKE ONE TABLET BY MOUTH TWICE A DAY SOLD: 08/30/2020 [facility] 75 mg 08/24/2020 12:00:00 AM EDT tablet 30 TAKE ONE TABLET BY MOUTH EVERY DAY TAKE ONE TABLET BY MOUTH EVERY DAY SOLD: 08/30/2020 [facility] clopidogrel 75 MG Oral Tablet clopidogrel (PLAVIX) 75 MG tablet clopidogrel (PLAVIX) 75 MG tablet 08/24/2020 12:00:00 AM EDT 75 mg Oral active Take 75 mg by mouth daily [facility] Acetaminophen 325 MG Oral Tablet Acetaminophen 325 MG 2020 12:00:00 AM EDT 1.0 {tablet_as_needed} active A cetaminophen 325 MG eCW1 ([facility]) Acetaminophen 325 MG Oral Tablet Acetaminophen 325 MG 2020 12:00:00 AM EDT 1.0 {tablet_as_needed} active A cetaminophen 325 MG eCW1 ([facility]) Acetaminophen 325 MG Oral Tablet Acetaminophen 325 MG 2020 12:00:00 AM EDT 1.0 {tablet_as_needed} active A cetaminophen 325 MG eCW1 ([facility]) 25 mg 07/31/2020 12:00:00 AM EDT tablet 30 TAKE ONE TABLET BY MOUTH EVERY DAY TAKE ONE TABLET BY MOUTH EVERY DAY SOLD: 08/02/2020 [facility] 25 mg 07/31/2020 12:00:00 AM EDT tablet 30 TAKE ONE TABLET BY MOUTH EVERY DAY TAKE ONE TABLET BY MOUTH EVERY DAY SOLD: 09/28/2020 [facility] 25 mg 07/31/2020 12:00:00 AM EDT tablet 30 TAKE ONE TABLET BY MOUTH EVERY DAY TAKE ONE TABLET BY MOUTH EVERY DAY SOLD: 11/15/2020 [facility] Folic Acid 1 MG Oral Tablet Folic Acid 06/21/2020 12:00:00 AM EDT ORAL active MEDENT ([facility]) Furosemide 40 MG Oral Tablet furosemide (LASIX) 40 MG tablet furosemide (LASIX) 40 MG tablet 05/07/2020 12:00:00 AM EDT 40 mg Oral activ e Take 1 tablet (40 mg total) by mouth every morning [facility] Folic Acid 1 MG Oral Tablet folic acid (FOLVITE) 1 MG tablet folic acid (FOLVITE) 1 MG tablet 05/07/2020 12:00:00 AM EDT 1 mg Oral active Take 1 tablet (1 mg total) by mouth daily [facility] Docusate Sodium 100 MG Oral Capsule docusate sodium (, DSS,) 100 MG CAPS docusate sodium (,DSS,) 100 MG CAPS 05/07/2020 12:00:00 AM EDT 100 mg Oral active Take 1 capsule (100 mg total) by mouth [facility] Daily Izabela (THERAGRAN) per tablet [id number] 05/07/2020 12:00:00 AM EDT 1 {tbl} Oral active Take 1 tablet by mouth [facility] Ascorbic Acid 500 MG Oral Tablet ascorbic acid (VITAMI N C) 500 MG tablet ascorbic acid (VITAMIN C) 500 MG tablet 05/07/2020 12:00:00 AM EDT 500 mg Oral active Take 1 tablet (500 m g total) by mouth daily [facility] atorvastatin 40 MG Oral Tablet atorvastatin (LIPITOR) 40 MG tablet atorvastatin (LIPITOR) 40 MG tablet 05/07/2020 12:00:00 AM EDT 40 mg Oral aborted Take 40 mg by mouth daily [facility] potassium chloride SA (K-DUR,KLOR-CON) 20 MEQ tablet [id number] 05/06/2020 12:00:00 AM EDT 20 meq Oral active Take 1 tablet (20 mEq total) by mouth daily [facility] Acetaminophen 325 MG / Oxycodone Hydroch loride 5 MG Oral Tablet oxyCODONE- acetaminophen (PERCOCET) 5-325 MG per tablet oxyCODONE-acetaminophen (PERCOCET) 5-325 MG per tablet 05/06/2020 12:00:00 AM EDT 1 {tbl} Oral active Take 1 tablet by mouth every 6 (six) hours as needed for pain Max Daily Amount: 4 tablets [facility] Metoprolol Tartrate 25 MG Oral Tablet me toprolol tartrate (LOPRESSOR) 25 MG tablet metoprolol tartrate (LOPRESSOR) 25 MG tablet 05/06/2020 12:0 0:00 AM EDT 25 mg Oral active Take 1 tablet (2 5 mg total) by mouth 2 (two) times a day [facility] 324 mg (38 mg iron) 05/06/2020 12:00:00 AM EDT tablet 60 TAKE ONE TABLET BY MOUTH TWICE A DAY BEFORE MEALS TAKE ONE TABLET BY MOUTH TWICE A DAY BEF ORE MEALS SOLD: 05/07/2020 [facility] 1 mg 05/06/2020 12:00:00 AM EDT tablet 30 TAKE ONE TABLET BY MOUTH EVERY DAY TAKE ONE TABLET BY MOUTH EVERY DAY SOLD: 10/12/2020 [facility] 25 mg 05/06/2020 12:00:00 AM EDT tablet 60 TAKE ONE TABLET BY MOUTH TWICE A DAY TAKE ONE TABLET BY MOUTH TWICE A DAY SOLD: 10/12/2020 [facility] ferrous gluconate 324 MG Oral Tablet ferrous gluconate (FERGON) 324 MG tablet ferrous gluconate (FERGON) 324 MG tablet 05/06/2020 12:00:00 AM EDT 324 mg Oral active Take 1 tablet (324 mg total) by mouth 2 (two) times a day before meals [facility] 25 mg 05/06/2020 12:00:00 AM EDT tablet 60 TAKE ONE TABLET BY MOUTH TWICE A DAY TAKE ONE TABLET BY MOUTH TWICE A DAY SOLD: 05/07/2020 [facility] 1 mg 05/06/2020 12:00:00 AM EDT tablet 30 TAKE ONE TABLET BY MOUTH EVERY DAY TAKE ONE TABLET BY MOUTH EVERY DAY SOLD: 05/07/2020 [facility] 100 mg 05/06/2020 12:00:00 AM EDT capsule 60 TAKE ONE CAPSULE BY MOUTH EVERY DAY TAKE ONE CAPSULE BY MOUTH EVERY DAY SOLD: 05/07/2020 [facility] MULTIVITAMIN 05/06/2020 12:00:00 AM EDT tablet 30 TAKE ONE TABLET BY MOUTH EVERY DAY TAKE ONE TABLET BY MOUTH EVERY DAY SOLD: 07/25/2020 [facility] 20 mEq 05/06/2020 12:00:00 AM EDT tablet,ER particles/cry stals 7 TAKE ONE TABLET BY MOUTH EVERY DAY TAKE ONE TABLET BY MOUTH EVERY DAY SOLD: 05/07/2020 [facility] 5-325 mg 05/06/2020 12:00:00 AM EDT tablet 30 TAKE ONE TABLET BY MOUTH EVERY 6 HOURS NEEDED FOR PAIN, MAXIMUM DAILY DOSE = 4 TAKE ONE TABLET BY MOUTH EVERY 6 HOURS NEEDED FOR PAIN, MAXIMUM DAILY DOSE = 4 SOLD: 05/07/2020 [facility] 500 mg 05/06/2020 12:00:00 AM EDT tablet 30 TAKE ONE TABLET BY MOUTH EVERY DAY TAKE ONE TABLET BY MOUTH EVERY DAY SOLD: 08/30/2020 [facility] MULTIVITAMIN 05/06/2020 12:00:00 AM EDT tablet 30 TAKE ONE TABLET BY MOUTH EVERY DAY TAKE ONE TABLET BY MOUTH EVERY DAY SOLD: 08/30/2020 [facility] 500 mg 05/06/2020 12:00:00 AM EDT tablet 30 TAKE ONE TABLET BY MOUTH EVERY DAY TAKE ONE TABLET BY MOUTH EVERY DAY SOLD: 07/25/2020 [facility] 1 mg 05/06/2020 12:00:00 AM EDT tablet 30 TAKE ONE TABLET BY MOUTH EVERY DAY TAKE ONE TABLET BY MOUTH EVERY DAY SOLD: 07/25/2020 [facility] 25 mg 05/06/2020 12:00:00 AM EDT tablet 60 TAKE ONE TABLET BY MOUTH TWICE A DAY TAKE ONE TABLET BY MOUTH TWICE A DAY SOLD: 07/25/2020 [facility] 1 mg 05/06/2020 12:00:00 AM EDT tablet 30 TAKE ONE TABLET BY MOUTH EVERY DAY TAKE ONE TABLET BY MOUTH EVERY DAY SOLD: 08/30/2020 [facility] 500 mg 05/06/2020 12:00:00 AM EDT tablet 30 TAKE ONE TABLET BY MOUTH EVERY DAY TAKE ONE TABLET BY MOUTH EVERY DAY SOLD: 05/07/2020 [facility] MULTIVITAMIN 05/06/2020 12:00:00 AM EDT tablet 30 TAKE ONE TABLET BY MOUTH EVERY DAY TAKE ONE TABLET BY MOUTH EVERY DAY SOLD: 05/07/2020 [facility] 40 mg 05/06/2020 12:00:00 AM EDT tablet 7 TAKE ONE TABLET BY MOUTH EVERY MORNING TAKE ONE TABLET BY MOUTH EVERY MORNING SOLD: 05/07/2020 [facility] Furosemide 40 MG Oral Tablet furosemide (LASIX) tablet 40 mg furosemide (LASIX) tablet 40 mg 05/05/2020 09:00:00 AM EDT 40 mg Oral activ e 40 mg, Oral, Every morning, First dose on 05/05/20 at 0900 [facility] Medication administered onsite Bisacodyl 10 MG Rectal Suppository bisacodyl (DULCOLAX ) suppository 10 mg bisacodyl (DULCOLAX) suppository 10 mg 05/05/2020 09:00:00 AM EDT 10 mg Rectal active 10 mg, Rectal, Daily PRN, constipation, if polyethylene glycol is not effective, Starting Thu05/05/20 at 0900
hold for loose stools
[facility] Medication administered onsite furosemide (LASIX) injection 40 mg [id number] 05/04/2020 10:00:00 AM EDT 40 mg Intravenous completed 40 mg, I ntravenous, Once, Thu05/04/20 at 1000, For 1 dose [facility] Medication administered onsite Daily Izabela (THERAGRAN) 1 tablet [id number] 05/04/2020 09:00:00 AM EDT 1 {tbl} Oral active 1 tablet, Oral, Daily, First dose on Thu05/04/20 at 0900 [facility] Medication administered onsite POLYETHYLENE GLYCOL 3350 142 MG/ML Oral Solution polyethylene glycol (GLYCOLAX) packet 17 g polyethylene glycol (GLYCOLAX) packet 17 g 05/04/2020 09:00:00 AM EDT 17 g Oral active 17 g, Or al, Daily, First dose on Thu05/04/20 at 0900
Starting 2nd POD, give every day until result
[facility] Medication administered onsite ferrous gluconate 324 MG Oral Tablet ferrous gluconate (FERGON) tablet 324 mg ferrous gluconate (FERGON) tablet 324 mg 05/04/2020 07:00:00 AM EDT 324 mg Oral active 324 mg, Oral, 2 times daily before meals, First dose on Thu05/04/20 at 0700
Start POD #2
[facility] Medication administered onsite 1 ML Ketorolac Tromethamine 30 MG/ML Car tridge ketorolac (TORADOL) injection 30 mg ketorolac (TORADOL) injection 30 mg 05/03/2020 11:41:40 PM EDT 30 mg Intravenous completed 30 mg, Intrav enous, Every 6 hours PRN, severe pain (7-10), Starting [facility] 05/03/20 at 2341, For 3 doses [facility] Medication administered onsite normal saline flush 0.9 % injection 3 mL [id number] 05/03/2020 10:00:00 PM EDT 3 mL Intravenous active 3 mL , Intravenous, PROTOCOL, First dose on Thu05/03/20 at 2200
May convert IV to a saline lock when taking in good p.o. intake (minimally 600 mL).
[facility] Medication administered onsite pantoprazole 40 MG Delayed Release Oral Tablet pantoprazole (PROTONIX) EC tablet 40 mg pantoprazole (PROTONIX) EC tablet 40 mg 05/03/2020 09:00:00 PM E DT 40 mg Oral active Gastroesophageal Reflux Diseas e 40 mg, Oral, 2 times daily, Indications: Gastroesophageal Reflux Disease, First dose on Thu05/03/20 at 2100
Start after extubation Do Not Crush
[facility] Gastroesophageal Reflux Disease Medication administered onsite 50 ML Magnesium Sulfate 40 MG/ML Injecti on magnesium sulfate 2 g in sterile diluent magnesium sulfate 2 g in sterile diluent 05/03/2020 06:07:01 PM EDT 2 g Intravenous active 2 g, Int ravenous, at 50 mL/hr, As needed, serum Mg 1.9-2.1, Starting [facility] 05/03/20 at 1807
Give 2 grams magnesium sulfate IV x 1 run over 1 hour. For serum creatinine (SCR) 0.8 to 1.5
[facility] Medication administered onsite potassium chloride SA (K-DUR,KLOR-CON) CR tablet 20 mEq 6203 705/03/2020 06:07:01 PM EDT 20 meq Oral active 20 mEq, Oral, As needed, Serum K+ 3.9-4.1, Starting Milena 05/03/20 at 1807
For serum creatinine (SCR) 0.8 to 1.5
[facility] Medication administered onsite potassium chloride SA (K-DUR,KLOR-CON) CR tablet 40 mEq 6203 705/03/2020 06:07:01 PM EDT 40 meq Oral active 40 mEq, Oral, As needed, Serum K+ 3.5-3.8, Starting Milena 05/03/20 at 1807
For serum creatinine (SCR) 0.8 to 1.5
[facility] Medication administered onsite ondansetron (ZOFRAN) injection 4 mg [id number] 05/03/2020 06:07:0 1 PM EDT 4 mg Intravenous active 4 mg, In travenous, Every 6 hours PRN, nausea, vomiting, Starting [facility] 05/03/20 at 1807
If no response in 15-30 minutes, give metoclopramide 10 mg IV x 1 then q6h prn N/V.
[facility] Medication administered onsite Nitroglycerin 0.4 MG Sublingual Tablet n itroglycerin (NITROSTAT) SL tablet 0.4 mg nitroglycerin (NITROSTAT) SL tablet 0.4 mg 05/03/2020 06:07:01 P M EDT 0.4 mg Sublingual active 0.4 mg, S ublingual, Every 5 min PRN, chest pain, Starting [facility] 05/03/20 at 1807
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 Notify MD/PA/GROUTMAN.
[facility] Medication administered onsite 50 ML Magnesium Sulfate 40 MG/ML Injecti on magnesium sulfate 2 g in sterile diluent magnesium sulfate 2 g in sterile diluent 05/03/2020 06:07:00 PM EDT 2 g Intravenous active 2 g, Int ravenous, at 50 mL/hr, As needed, serum Mg 1.5-1.8, Starting [facility] 05/03/20 at 1807
Give 2 grams magnesium sulfate IV x 2 runs over 1 hour each. For serum creatinine (SCR) 0.8 to 1.5
[facility] Medication administered onsite Albuterol 0.83 MG/ML Inhalant Solution a lbuterol (PROVENTIL) nebulizer solution 2.5 mg albuterol (PROVENTIL) nebulizer solution 2.5 mg 2020 06:07:00 PM EDT 2.5 mg active 2.5 mg, Nebulization, RT every 2 hours as needed, wheezing, shortness of breath, Starting [facility] 05/03/20 at 1807 [facility] Medication administered onsite Aluminum Hydroxide 64 MG/ML Oral Suspens ion aluminum hydroxide (ALTERNAGEL) suspension 15 mL aluminum hydroxide (ALTERNAGEL) suspension 15 mL 05/03 06:07:00 PM EDT 15 mL Oral active 15 mL, Oral, Every 4 hours PRN, for indigestion/ gas, Starting [facility] 05/03/20 at 1807 [facility] Medication administered onsite furosemide (LASIX) injection 40 mg [id number] 05/03/2020 05:00:00 PM EDT 40 mg Intravenous completed 40 mg, I ntravenous, LOOPBID, First dose on Milena 05/03/20 at 1700, For 1 dose [facility] Medication administered onsite albumin human 5 % bottle 12.5 g [id number] 05/03/2020 04:00:00 PM EDT 12.5 g Intravenous completed Hypotension 12.5 g, Intr avenous, Once, Indications: Hypotension, Milena 05/03/20 at 1600, For 1 dose [facility] Hypotension Medication administered onsite furosemide (LASIX) injection 40 mg [id number] 05/03/2020 01:00:00 PM EDT 40 mg Intravenous completed 40 mg, I ntravenous, Once, Milena 05/03/20 at 1300, For 1 dose [facility] Medication administered onsite lidocaine (ASPERCREME) 4 % 1 patch [id number] 05/03/2020 09:00:00 AM EDT 1 {patch} Transdermal active 1 patch, Transdermal, Administer over 12 Hours, Daily, First dose on Milena 05/03/20 at 0900 [facility] Medication administered onsite Docusate Sodium 100 MG Oral Capsule docusate sodium (C OLACE) capsule 100 mg docusate sodium (COLACE) capsule 100 mg 05/03/2020 09:00:00 AM EDT 100 mg Oral active 100 mg, Oral, Daily, First dose on Milena 05/03/20 at 0900
Give PO/OG. Start first POD
[facility] Medication administered onsite Thiamine 100 MG Oral Tablet thiamine tablet 100 mg thiamine tablet 100 mg 05/03/2020 09:00:00 AM EDT 100 mg Oral active 100 mg, Oral, Daily, First dose on Milena 05/03/20 at 0900 [facility] Medication administered onsite Ascorbic Acid 500 MG Oral Tablet ascorbic acid (VITAMI N C) tablet 500 mg ascorbic acid (VITAMIN C) tablet 500 mg 05/03/2020 09:00:00 AM EDT 500 mg Oral active 500 mg, Oral, Daily, First dose on Milena 05/03/20 at 0900
Give PO/OG. Start first POD.
[facility] Medication administered onsite Folic Acid 1 MG Oral Tablet folic acid (FOLVITE) table t 1 mg folic acid (FOLVITE) tablet 1 mg 05/03/2020 09:00:00 AM EDT 1 mg Oral active 1 mg, Oral, Daily, First dose on Milena 05/03/20 at 0900
Give PO/OG. Start first POD
[facility] Medication administered onsite Aspirin 81 MG Delayed Release Oral Tablet aspirin EC t ablet 81 mg aspirin EC tablet 81 mg 05/03/2020 09:00:00 AM EDT 81 mg Oral activ e 81 mg, Oral, Daily, First dose on Milena 05/03/20 at 0900
Hold for platelet count less than 90,000. If OG tube in place, give non-enteric coated aspirin.
[facility] Medication administered onsite furosemide (LASIX) injection 40 mg [id number] 05/03/2020 07:00:00 AM EDT 40 mg Intravenous completed 40 mg, I ntravenous, Once, Milena 05/03/20 at 0700, For 1 dose [facility] Medication administered onsite 1 ML Ketorolac Tromethamine 15 MG/ML Car tridge ketorolac (TORADOL) injection 15 mg ketorolac (TORADOL) injection 15 mg 05/03/2020 06:37:15 AM EDT 15 mg Intravenous aborted 15 mg, Intrav enous, Every 6 hours PRN, severe pain (7-10), Starting [facility] 05/03/20 at 0637, For 24 hours [facility] Medication administered onsite 1 ML Lorazepam 2 MG/ML Injection LORazepam (ATIVAN) in jection 1-3 mg LORazepam (ATIVAN) injection 1-3 mg 05/03/2020 06:33:34 AM EDT Intravenous active 1-3 mg, Intravenous, As need ed, GMAW, Starting [facility] 05/03/20 at 0633, For 7 days
GMAW Score IVP/IM dos e 0 &nbsp ; None &n bsp; &nbs p; &nbs p; &n bsp; &a mp;nbsp; 1 to 3 &nbs p; 1 mg & nbsp; &nb sp; &nb sp; &nbsp ; &nbsp ; & nbsp; 4 to 7 &n bsp; 2 mg &am p;nbsp; & nbsp; & nbsp; &nb sp; &nb sp; &nbsp ; 8 to 10 3 mg & amp;nbsp; &nbsp ; &am p;nbsp; & nbsp; & nbsp; &nb sp; GMAW reassessment is every 2 hours for 5 days. If treatment is needed prior, notify provider.
[facility] Medication administered onsite heparin (porcine) injection 5,000 Units [id number] 05/04/19 06:00:00 AM EDT 5000 U Subcutaneous active 5,000 Units , Subcutaneous, Every 8 hours (scheduled), First dose on Milena 05/03/20 at 0600
Start first POD. Hold for platelet count less than 90,000, INR greater than or equal to 1.7 if receiving coumadin therapy.
[facility] Medication administered onsite Metoprolol Tartrate 25 MG Oral Tablet me toprolol tartrate (LOPRESSOR) tablet 25 mg metoprolol tartrate (LOPRESSOR) tablet 25 mg 05/03/2020 06:00:00 AM EDT 25 mg Oral active 25 mg, Ora l, 2 times daily, First dose on Milena 05/03/20 at 0600
Hold for SBP<100 HR<60
[facility] Medication administered onsite normal saline flush 0.9 % injection 3 mL [id number] 05/03/2020 06:00:00 AM EDT 3 mL Intravenous active 3 mL , Intravenous, PROTOCOL, First dose on Milena 05/03/20 at 0600
May convert to saline lock with minimally 600 ml PO intake on first POD; prior to transfer
[facility] Medication administered onsite atorvastatin 80 MG Oral Tablet atorvastatin (LIPITOR) tablet 80 mg atorvastatin (LIPITOR) tablet 80 mg 05/02/2020 09:00:00 PM EDT 80 mg Oral active 80 mg, Oral, Daily, First dose on Thu05/02/20 at 2100 [facility] Medication administered onsite cefazolin (ANCEF) injection 2 g 05/02/2020 06:00:00 PM EDT 2 g Intravenous aborted Perioperative Pharmacoprophylaxis 2 g, Intravenous, Administer over 6 Minutes, Every 8 hours (relative), First dose on Thu05/02/20 at 1800, For 5 doses
Not to exceed 48 hours from time of closure. Time of closure = 1225 RN may administer IV push or infuse this medication through syringe adapter set ref [id number]. Flush line after use
[facility] Perioperative Pharmacoprophylaxis Medication administered onsite Insulin Lispro 100 UNT/ML Injectable Ibis ution insulin lispro (HumaLOG) injection 1-6 Units insulin lispro (HumaLOG) injection 1-6 Units 05:00:00 PM EDT Subcutaneous active 1-6 Units, Subcutaneous, MEALSS, First dose on Thu05/02/20 at 1700
Frail 3 units Nutritional and Correction Insulin Scale Blood Glucose (mg/dl) <70 start hypoglycemia protocol Glucose &nbsp ; Eats >=50% Eats &l t;50% Eats Nothing (mg/dl) of meal of meal or NPO &nb sp; 70- 120 2 units 1 units 0 units 121-170 & nbsp; 3 units 2 units 0 units 171-220 &nbsp ; 4 units 2 units 1 units 221-270 &am p;nbsp; 4 units 3 units 1 units 271-320 &n bsp; 5 units 3 units 2 units 321- 370 5 units 4 units 2 units 371- 420 6 units 4 units 3 units >420 call MD 6 units 5 units 3 units Test glucose within 30 minutes of insulin administration. Administer insulin within 15 minutes (before or after) of t he patient starting to eat. For patients that are NPO, use the NPO (correction) scale to cover POC glucose at 08:00, 12:00, 17:00.
[facility] Medication administered onsite Vitamin B 12 1 MG/ML Injectable Solution cyanocobalami n injection 1,000 mcg cyanocobalamin injection 1,000 mcg 05/02/2020 02:00:00 PM EDT 10 00 ug Subcutaneous completed 1,000 mcg, S ubcutaneous, Once, Thu05/02/20 at 1400, For 1 dose, PACU & Post-op
DEEP SUBCUTANEOUS
[facility] Medication administered onsite Famotidine (PEPCID) injection 20 mg [id number] 05/02/2020 02:00:0 0 PM EDT 20 mg Intravenous aborted 20 mg, I ntravenous, Every 12 hours (scheduled), First dose on Thu05/02/20 at 1400, PACU & Post-op
D/C after extubation
[facility] Medication administered onsite Magnesium Chloride 0.13513 MEQ/ML / Pota ssium Chloride 0.0497 MEQ/ML / Sodium Acetate 0.0163 MEQ/ML / Sodium Chloride 0.0899 MEQ/ML / Sodium gluconate 5.02 MG/ML Injectable Solution [Normosol-R] electrolyte-R (NORMOSOL-R/PLASMALYTE-R) solution electrolyte-R (NORMOSOL-R/PLASMALYTE-R) solution 05/02 02:00:00 PM EDT Intravenous aborted at 0 -80 mL/hr, Intravenous, Continuous, Starting Thu05/02/20 at 1400, Post-op
From 0600 first post-op day, adjust IV and PO intake so that total fluid intake is 2 liters in 24 hours
[facility] Medication administered onsite niCARdipine (CARDENE) 50 mg/250 ml 0.9% NaCl infusion 05/02/2020 02:00:00 PM EDT Intravenous aborted PACU & Post-op, 0-15 mg/hr (0-75 mL/hr), Intravenous, Continuous, Starting Thu05/02/20 at 1400, Until Milena 05/03/20 at 1810, at 0-75 mL/hr [facility] Medication administered onsite Dexmedetomidine HCl 400 mcg in sodium chloride (NS) 0.9 % 10 0 mL infusion 05/02/2020 02:00:00 PM EDT Intravenous aborted Post-op, 0.2-0.7 mcg/kg/hr 91.8 kg (4.59-16.065 mL/hr, rounded to 4.6-16.1 mL/hr), Intravenous, Continuous, Starting Thu05/02/20 at 1400, Until Thu05/02/20 at 2018, at 4.6-16.1 mL/hr [facility] Medication administered onsite pantoprazole 40 MG Delayed Release Oral Tablet pantoprazole (PROTONIX) EC tablet 40 mg pantoprazole (PROTONIX) EC tablet 40 mg 05/02/2020 02:00:00 PM E DT 40 mg Oral aborted Gastroesophageal Reflux Diseas e 40 mg, Oral, Daily, Indications: Gastroesophageal Reflux Disease, First dose on Thu05/02/20 at 1400, Post-op
Start after extubation Do Not Crush
[facility] Gastroesophageal Reflux Disease Medication administered onsite propofol (DIPRIVAN) infusion 10 mg/mL [id number] 05/02/2020 02:00 :00 PM EDT Intravenous aborted 0-25 mcg /kg/min 91.8 kg (0-13.77 mL/hr, rounded to 0-13.8 mL/hr), Intravenous, at 0-13.8 mL/hr, Continuous, Starting Thu05/02/20 at 1400, For 2 hours, Post-op
Titrate to maintain target RASS score 0 to -2May give IV bolus of 0.5 mg/kg over 1 minute to maintain target sedation score. If needed may repeat x 1 in 10 minutes prn.PROPOFOL OFF 2 HOURS AFTER ADMISSION TO CVICU
[facility] Medication administered onsite Tamsulosin hydrochloride 0.4 MG Oral Cap sg tamsulosin (FLOMAX) 24 hr capsule 0.4 mg tamsulosin (FLOMAX) 24 hr capsule 0.4 mg 05/02/2020 02:00:00 PM EDT 0.4 mg Oral active 0.4 mg, Oral, Daily, Fir st dose on Thu05/02/20 at 1400 [facility] Medication administered onsite Citalopram 40 MG Oral Tablet citalopram (CeleXA) table t 40 mg citalopram (CeleXA) tablet 40 mg 05/02/2020 02:00:00 PM EDT 40 mg Oral active 40 mg, Oral, Daily, First dose on Thu05/02/20 at 1400 [facility] Medication administered onsite oxyCODONE-acetaminophen (PERCOCET) 5-325 MG 1 tablet 05/02/2020 12:53:58 PM EDT 1 {tbl} Oral active [Order 1 Start] Name: oxyCODONE-acetaminophen (PERCOCET) 5-325 MG 1 tablet Signed Summary: 1 tablet, Oral, Every 4 hours PRN, moderate pain (4-6), Starting Thu05/02/20 at 1253, For 7 days
For pain after extubation. Discontinue all previous opiate orders before starting.
[Order 1 End] [Order 2 Start] Name: oxyCODONE-acetaminophen (PERCOCET) 5-325 MG 2 tablet Signed Summary: 2 tablet, Oral, Every 4 hours PRN, severe pain (7-10), Starting Thu05/02/20 at 1253, For 7 days
For pain after extubation. Discontinue all previous opiate orders before starting.
[Order 2 End] [facility] Medication administered onsite 2 ML Metoclopramide 5 MG/ML Prefilled Sy ringe metoclopramide (REGLAN) injection 10 mg metoclopramide (REGLAN) injection 10 mg 05/02/2020 12:53:57 PM E DT 10 mg Intravenous active 10 mg, I ntravenous, Every 6 hours PRN, nausea, vomiting, if zofran is not effective, Starting Thu05/02/20 at 1253 [facility] Medication administered onsite 1 ML Naloxone Hydrochloride 0.4 MG/ML In jection naloxone (NARCAN) injection 0.2 mg naloxone (NARCAN) injection 0.2 mg 05/02/2020 12:53:57 PM EDT 0.2 mg Intravenous active 0.2 mg, Intra venous, As needed, opioid reversal, PRN for RR< 8 and/or unable to arouse patient immediately., Starting Thu05/02/20 at 1253 [facility] Medication administered onsite 2 ML Midazolam 1 MG/ML Injection midazolam (VERSED) in jection 1 mg midazolam (VERSED) injection 1 mg 05/02/2020 12:53:57 PM EDT 1 mg Intraveno us aborted 1 mg, Intravenous, E very 30 min PRN, anxiety, sedation, Starting Thu05/02/20 at 1253, For 7 days, PACU & Post-op
Target RASS -2 to +1 DISCONTINUE AFTER EXTUBATION
[facility] Medication administered onsite ondansetron (ZOFRAN) injection 4 mg [id number] 05/02/2020 12:53:5 7 PM EDT 4 mg Intravenous aborted 4 mg, In travenous, Every 6 hours PRN, nausea, vomiting, Starting Thu05/02/20 at 1253 [facility] Medication administered onsite fentaNYL Citrate (PF) (SUBLIMAZE) injection 25 mcg [id number] 05/02/2020 12:53:56 PM EDT 25 ug Intravenous aborted 25 mcg, Intravenous, Every 10 min PRN, moderate pain (4-6), Starting Thu05/02/20 at 1253, For 7 days, PACU & Post-op
Maximum 10 doses in a 24-hour period. DISCONTINUE 6 HOURS POST EXTUBATION
[facility] Medication administered onsite HYDROmorphone (DILAUDID) injection 0.5 mg [id number] 05/02/2020 12:53:56 PM EDT 0.5 mg Intravenous aborted 0.5 mg, Intravenous, Every 5 min PRN, severe pain (7-10), Starting Thu05/02/20 at 1253, For 7 days
Indicated for patients less than 75 years of age and not frail patients. FOR EXTUBATED PATIENTS ONLY. DISCONTINUE 6 HOURS POST EXTUBATION. Maximum dose 2 mg.
[facility] Medication administered onsite HYDROmorphone (DILAUDID) injection 0.5 mg [id number] 05/02/2020 12:53:56 PM EDT 0.5 mg Intravenous aborted 0.5 mg, Intravenous, Every 10 min PRN, severe pain (7-10), Starting Thu05/02/20 at 1253, For 7 days, PACU & Post- op
Indicated for patients less than 75 years of age and not frail patients. FOR INTUBATED PATIENTS ONLY. DISCONTINUE POST EXTUBATION. Maximum dose 3 mg.
[facility] Medication administered onsite dextrose 50 % solution 25 mL [id number] 05/02/2020 12:53:55 PM EDT 25 mL Intravenous active 25 mL, Intrav enous, As needed, low blood sugar, Starting Thu05/02/20 at 1253
For Glucose < 70: Stop insulin infusion Give 25 ml of D50 IV When Glucose > 140mg/dl x 2 consecutive readings, restart infusion at 50% of previous rateFor Glucose 70-100: Stop insulin infusion If previous Glucose > 140 mg/dl, or symptomatic give 25ml Dextrose 50% IV When Glucose > 140mg/dl x 2 consecutive glucoses restart at 50% of previous rate
For Glucose 101-139: Stop drip and recheck Glucose in 30 minutes. If Glucose > 140 restart insulin infusion at 50% of previous rate.
[facility] Medication administered onsite Acetaminophen 650 MG Rectal Suppository acetaminophen (TYLENOL) suppository 650 mg acetaminophen (TYLENOL) suppository 650 mg 05/02/2020 12:53:54 P M EDT 1 {suppository} Rectal active 650 mg (1 suppository), Rectal, Every 4 hours PRN, headaches, and temp >101. Call MD/PA, Starting Thu05/02/20 at 1253 [facility] Medication administered onsite Acetaminophen 325 MG Oral Tablet acetaminophen (TYLENO L) 325 MG tablet 650 mg acetaminophen (TYLENOL) 325 MG tablet 650 mg 05/02/2020 12:53:54 PM EDT 650 mg Oral active 650 mg, Or al, Every 4 hours PRN, headaches, and temp >101. Call MD/PA., Starting Thu05/02/20 at 1253
"Maximum dose of acetaminophen is 4,000 mg from all sources in 24 hours."
[facility] Medication administered onsite Metoprolol Tartrate 25 MG Oral Tablet me toprolol tartrate (LOPRESSOR) tablet 12.5 mg metoprolol tartrate (LOPRESSOR) tablet 12.5 mg 09:00:00 AM EDT 12.5 mg Oral aborted 12.5 mg, Oral, 2 times daily, First dose on Thu05/02/20 at 0900, Pre-op
Hold for HR < 60, or SBP <100
[facility] Medication administered onsite BUPIVACAINE 0.5% (Q-BALL) 330 mL 05/02/2020 07:00:00 AM EDT 330 mL Topical active 330 mL, Topical , Continuous, Starting Thu05/02/20 at 0700, Intra- op
Please indicate single or double lumen: Double Lumen [facility] Medication administered onsite heparin (porcine) injection 5,000 Units [id number] 05/03/19 07:00:00 AM EDT 5000 U Subcutaneous completed 5,000 Uni ts, Subcutaneous, Once, Thu05/02/20 at 0700, For 1 dose, Pre-op
Once on admission. Hold for platelets < 90,000.
[facility] Medication administered onsite Citalopram 40 MG Oral Tablet CITALOPRAM HYDROBROMIDE 04/13/2020 12:00:00 AM EST tablet 30 TAKE ONE TABLET BY MOUTH EVERY D AY TAKE ONE TABLET BY MOUTH EVERY DAY SOLD: 10/12/2020 [facility] 1 % 04/13/2020 12:00:00 AM EST gel 300 APPLY 4 GRAMS TO BOTH SHOULDERS FRONT AND BACK ONCE EVERY 6 HOURS NEEDED APPLY 4 GRAMS TO BOTH SHOULDERS FRONT AN D BACK ONCE EVERY 6 HOURS NEEDED SOLD: 04/16/2020 [facility] 40 mg 04/13/2020 12:00:00 AM EST tablet 60 TAKE ONE TABLET BY MOUTH TWICE A DAY TAKE ONE TABLET BY MOUTH TWICE A DAY SOLD: 04/16/2020 [facility] Citalopram 40 MG Oral Tablet CITALOPRAM HYDROBROMIDE 04/13/2020 12:00:00 AM EST tablet 30 TAKE ONE TABLET BY MOUTH EVERY D AY TAKE ONE TABLET BY MOUTH EVERY DAY SOLD: 04/16/2020 [facility] Diclofenac Sodium 0.01 MG/MG Topical Gel Diclofenac So dium 1 % GEL Diclofenac Sodium 1 % GEL 04/13/2020 12:00:00 AM EST aborted as needed [facility] Citalopram 40 MG Oral Tablet CITALOPRAM HYDROBROMIDE 04/13/2020 12:00:00 AM EST tablet 30 TAKE ONE TABLET BY MOUTH EVERY D AY TAKE ONE TABLET BY MOUTH EVERY DAY SOLD: 07/25/2020 [facility] Citalopram 40 MG Oral Tablet CITALOPRAM HYDROBROMIDE 04/13/2020 12:00:00 AM EST tablet 30 TAKE ONE TABLET BY MOUTH EVERY D AY TAKE ONE TABLET BY MOUTH EVERY DAY SOLD: 08/30/2020 [facility] Citalopram 40 MG Oral Tablet CITALOPRAM HYDROBROMIDE 04/13/2020 12:00:00 AM EST tablet 30 TAKE ONE TABLET BY MOUTH EVERY D AY TAKE ONE TABLET BY MOUTH EVERY DAY SOLD: 11/22/2020 [facility] albuterol COMMON CANISTER (PROVENTIL HFA;VENTOLIN HFA) inhaler 2 puff [id number] 04/02/2020 12:54:44 PM EST 2 {puff} Inhalation active 2 puff, Inhalation, As needed, wheezing, Starting 04/02/20 at 1254
Cleaning/Decontamination Process for MDI used for Common Canister This will be managed by Respiratory Therapy Before and after EACH USE: 1) Separate the canister from the plastic mouthpiece. 2) Using sterile 70% alcohol pads, thoroughly wipe all components of the MDI with enough to wet the entire MDI and allow to air dry. 3) After thorough drying, place the canister and mouthpiece back together. 4) Place MDI in a clean plastic bag. This process SHALL be repeated before and after each use.
[facility] Medication administered onsite 25 mg 03/16/2020 12:00:00 AM EST tablet 30 TAKE ONE TABLET BY MOUTH EVERY DAY TAKE ONE TABLET BY MOUTH EVERY DAY SOLD: 05/07/2020 [facility] 25 mg 03/16/2020 12:00:00 AM EST tablet 30 TAKE ONE TABLET BY MOUTH EVERY DAY TAKE ONE TABLET BY MOUTH EVERY DAY SOLD: 03/22/2020 [facility] Lisinopril 40 MG Oral Tablet lisinopril (PRINIVIL,ZEST RIL) 40 MG tablet lisinopril (PRINIVIL,ZESTRIL) 40 MG tablet 02/26/2020 12:00:00 AM EST 20 mg Oral active Take 0.5 tablets (20 mg total) by mouth daily [facility] Chlorthalidone 25 MG Oral Tablet chlorthalidone (HYGRO TEN) 25 MG tablet chlorthalidone (HYGROTEN) 25 MG tablet 02/26/2020 12:00:00 AM EST 2 5 mg Oral active Take 1 tablet (25 mg tota l) by mouth daily [facility] normal saline flush 0.9 % injection 3 mL [id number] 02/24/2020 02:00:00 PM EST 3 mL Intravenous active 3 mL , Intravenous, PROTOCOL, First dose on Thu02/24/20 at 1400, Pre-op
flush per protocol, D/C Main IV fluid if appropriate
[facility] Medication administered onsite iopamidol (ISOVUE-370) 76 % [id number] 02/24/2020 10:08:03 AM EST active As needed, Starting Thu02/24/20 at 1008, Intra-Procedu re [facility] Medication administered onsite heparin (porcine) injection [id number] 02/24/2020 09:28:46 AM EST active As needed, Starting Thu02/24/20 at 0928, Intra-Procedure [facility] Medication administered onsite 4 ML Verapamil hydrochloride 2.5 MG/ML Injection verap christiane (ISOPTIN) injection verapamil (ISOPTIN) injection 02/24/2020 09:28:36 AM EST active As needed, Starting Thu02/24/20 at 0928, Intra-Procedure [facility] Medication administered onsite lidocaine 1 % injection [id number] 02/24/2020 09:28:10 AM EST active As needed, Starting Thu02/24/20 at 0928, Intra-Procedure [facility] Medication administered onsite 2 ML Midazolam 1 MG/ML Injection midazolam (VERSED) in jection midazolam (VERSED) injection 02/24/2020 09:21:02 AM EST active As needed, Starting Thu02/24/20 at 0921, Intra-Procedure [facility] Medication administered onsite fentaNYL Citrate (PF) (SUBLIMAZE) injection [id number] 02/24/2020 09:20:49 AM EST active As neede d, Starting Thu02/24/20 at 0920, Intra-Procedure [facility] Medication administered onsite normal saline flush 0.9 % injection 3 mL [id number] 02/24/2020 07:00:00 AM EST 3 mL Intravenous active 3 mL , Intravenous, Every 8 hours (scheduled), First dose on Thu02/24/20 at 0700, Pre-op
Rapid push positive pressure flushing shall be performed with a 10 cc normal saline syringe to check the PATENCY of a PIV site prior to any infusion therapy initiation unless resistance is met.
[facility] Medication administered onsite normal saline flush 0.9 % injection 3 mL [id number] 02/24/2020 07:00:00 AM EST 3 mL Intravenous active 3 mL , Intravenous, Every 8 hours (scheduled), First dose on Thu02/24/20 at 0700, Pre-op
Rapid push positive pressure flushing shall be performed with a 10 cc normal saline syringe to check the PATENCY of a PIV site prior to any infusion therapy initiation unless resistance is met.
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
Start two hours prior to scheduled start time
[facility] Medication administered onsite Aspirin 325 MG Oral Tablet aspirin tablet 325 mg aspirin tab let 325 mg 02/24/2020 07:00:00 AM EST 325 mg Oral completed 325 mg, Oral, Once, Thu02/24/20 at 0700, For 1 dose, Pre-op
Give if scheduled for cardiac or peripheral angioplasty/stent or carotid stenting. Administer AM dose prior to procedure if NOT taken at home. Max of 1 dose per day.
[facility] Medication administered onsite Citalopram 40 MG Oral Tablet CITALOPRAM HYDROBROMIDE [...] A DAY ON AN EMPTY STOMACH SOLD: 07/25/2020 [facility] 1 gram 01/18/2020 12:00:00 AM EST tablet 60 TAKE ONE TABLET BY MOUTH TWICE A DAY ON AN EMPTY STOMACH TAKE ONE TABLET BY MOUTH TWICE A DAY ON AN EMPTY STOMACH SOLD: 01/20/2020 [facility] Citalopram 40 MG Oral Tablet citalopram (CELEXA) 40 MG tablet citalopram (CELEXA) 40 MG tablet 01/18/2020 12:00:00 AM EST 40 mg Oral active Take 40 mg by mouth daily [facility] Chlorthalidone 25 MG Oral Tablet chlorthalidone (HYGRO TEN) 25 MG tablet chlorthalidone (HYGROTEN) 25 MG tablet 01/18/2020 12:00:00 AM EST 2 5 mg Oral aborted Take 25 mg by mouth daily [facility] Lisinopril 40 MG Oral Tablet lisinopril (PRINIVIL,ZEST RIL) 40 MG tablet lisinopril (PRINIVIL,ZESTRIL) 40 MG tablet 01/18/2020 12:00:00 AM EST aborted TAKE ONE HALF TABLET BY MOUTH TW ICE A DAY [facility] Sucralfate 1000 MG Oral Tablet sucralfate (CARAFATE) 1 g tablet sucralfate (CARAFATE) 1 g tablet 01/18/2020 12:00:00 AM EST 1 g Oral active Take 1 g by mouth 2 (two) times a day [facility] Tamsulosin hydrochloride 0.4 MG Oral Capsule tamsulosi n (FLOMAX) 0.4 MG CAPS tamsulosin (FLOMAX) 0.4 MG CAPS 01/18/2020 12:00:00 AM EST 0.4 mg O ral active Take 0.4 mg by mouth daily [facility] 1 gram 01/18/2020 12:00:00 AM EST tablet 60 TAKE ONE TABLET BY MOUTH TWICE A DAY ON AN EMPTY STOMACH TAKE ONE TABLET BY MOUTH TWICE A DAY ON AN EMPTY STOMACH SOLD: 10/12/2020 [facility] 1 gram 01/18/2020 12:00:00 AM EST tablet 60 TAKE ONE TABLET BY MOUTH TWICE A DAY ON AN EMPTY STOMACH TAKE ONE TABLET BY MOUTH TWICE A DAY ON AN EMPTY STOMACH SOLD: 05/07/2020 [facility] Sucralfate 1000 MG Oral Tablet [Carafate] Carafate 1 GM Lucia fate 1 GM 01/17/2020 12:00:00 AM EST 1.0 {tablet_on_an_empty_stomach} active Carafate 1 GM eCW1 ([facility]) Sucralfate 1000 MG Oral Tablet [Carafate] Carafate 1 GM Lucia fate 1 GM 01/17/2020 12:00:00 AM EST 1.0 {tablet_on_an_empty_stomach} active Carafate 1 GM eCW1 ([facility]) Sucralfate 1000 MG Oral Tablet [Carafate] Carafate 1 GM Lucia fate 1 GM 01/17/2020 12:00:00 AM EST 1.0 {tablet_on_an_empty_stomach} active Carafate 1 GM eCW1 ([facility]) Sucralfate 1000 MG Oral Tablet [Carafate] Carafate 1 GM Lucia fate 1 GM 01/17/2020 12:00:00 AM EST 1.0 {tablet_on_an_empty_stomach} active Carafate 1 GM eCW1 ([facility]) Mirtazapine 7.5 MG Oral Tablet Mirtazapine 7.5 MG 01/16/2020 12:00: 00 AM EST 2.0 {tablets_at_bedtime} active Mirtaza pine 7.5 MG eCW1 ([facility]) Mirtazapine 7.5 MG Oral Tablet Mirtazapine 7.5 MG 01/16/2020 12:00: 00 AM EST 2.0 {tablets_at_bedtime} active Mirtaza pine 7.5 MG eCW1 ([facility]) Mirtazapine 7.5 MG Oral Tablet mirtazapine (REMERON) 7 .5 MG tablet mirtazapine (REMERON) 7.5 MG tablet 01/16/2020 12:00:00 AM EST 15 mg Oral active Take 15 mg by mouth nightly as needed (for sleep) [facility] Mirtazapine 7.5 MG Oral Tablet Mirtazapine 7.5 MG 01/16/2020 12:00: 00 AM EST 2.0 {tablets_at_bedtime} active Mirtaza pine 7.5 MG eCW1 ([facility]) Mirtazapine 7.5 MG Oral Tablet Mirtazapine 7.5 MG 01/16/2020 12:00: 00 AM EST 2.0 {tablets_at_bedtime} active Mirtaza pine 7.5 MG eCW1 ([facility]) 7.5 mg 01/16/2020 12:00:00 AM EST tablet 30 TAKE 2 TABLETS BY MOUTH BEFORE BEDTIME TAKE 2 TABLETS BY MOUTH BEFORE BEDTIME SOLD: 03/22/2020 [facility] 7.5 mg 01/16/2020 12:00:00 AM EST tablet 30 TAKE 2 TABLETS BY MOUTH BEFORE BEDTIME TAKE 2 TABLETS BY MOUTH BEFORE BEDTIME SOLD: 05/07/2020 [facility] 7.5 mg 01/16/2020 12:00:00 AM EST tablet 30 TAKE 2 TABLETS BY MOUTH BEFORE BEDTIME TAKE 2 TABLETS BY MOUTH BEFORE BEDTIME SOLD: 01/20/2020 [facility] 7.5 mg 01/16/2020 12:00:00 AM EST tablet 30 TAKE 2 TABLETS BY MOUTH BEFORE BEDTIME TAKE 2 TABLETS BY MOUTH BEFORE BEDTIME SOLD: 02/17/2020 [facility] Tamsulosin hydrochloride 0.4 MG Oral Capsule [Flomax] Flomax 0.4 MG Flomax 0.4 MG 12/09/2019 12:00:00 AM EDT 1.0 {capsule} active Flomax 0.4 MG eCW1 ([facility]) Tamsulosin hydrochloride 0.4 MG Oral Capsule [Flomax] Flomax 0.4 MG Flomax 0.4 MG 12/09/2019 12:00:00 AM EDT 1.0 {capsule} active Flomax 0.4 MG eCW1 ([facility]) Tamsulosin hydrochloride 0.4 MG Oral Capsule [Flomax] Flomax 0.4 MG Flomax 0.4 MG 12/09/2019 12:00:00 AM EDT 1.0 {capsule} active Flomax 0.4 MG eCW1 ([facility]) Tamsulosin hydrochloride 0.4 MG Oral Capsule [Flomax] Flomax 0.4 MG Flomax 0.4 MG 12/09/2019 12:00:00 AM EDT 1.0 {capsule} active Flomax 0.4 MG eCW1 ([facility]) atorvastatin 40 MG Oral Tablet ATORVASTATIN CALCIUM 12/09/2019 1 2:00:00 AM EDT tablet 90 TAKE ONE TABLET BY MOUTH EVERY D AY TAKE ONE TABLET BY MOUTH EVERY DAY SOLD: 12/12/2019 [facility] 0.4 mg 12/09/2019 12:00:00 AM EDT capsule 30 TAKE ONE CAPSULE BY MOUTH EVERY DAY TAKE ONE CAPSULE BY MOUTH EVERY DAY SOLD: 01/20/2020 [facility] Tamsulosin hydrochloride 0.4 MG Oral Capsule [Flomax] Flomax 0.4 MG Flomax 0.4 MG 12/09/2019 12:00:00 AM EDT 1.0 {capsule} active Flomax 0.4 MG eCW1 ([facility]) atorvastatin 40 MG Oral Tablet ATORVASTATIN CALCIUM 12/09/2019 1 2:00:00 AM EDT tablet 90 TAKE ONE TABLET BY MOUTH EVERY D AY TAKE ONE TABLET BY MOUTH EVERY DAY SOLD: 05/07/2020 [facility] Tamsulosin hydrochloride 0.4 MG Oral Capsule [Flomax] Flomax 0.4 MG Flomax 0.4 MG 12/09/2019 12:00:00 AM EDT 1.0 {capsule} active Flomax 0.4 MG eCW1 ([facility]) 0.4 mg 12/09/2019 12:00:00 AM EDT capsule 30 TAKE ONE CAPSULE BY MOUTH EVERY DAY TAKE ONE CAPSULE BY MOUTH EVERY DAY SOLD: 12/12/2019 [facility] Tamsulosin hydrochloride 0.4 MG Oral Capsule [Flomax] Flomax 0.4 MG Flomax 0.4 MG 12/09/2019 12:00:00 AM EDT 1.0 {capsule} active Flomax 0.4 MG eCW1 ([facility]) atorvastatin 40 MG Oral Tablet atorvastatin (LIPITOR) 40 MG tablet atorvastatin (LIPITOR) 40 MG tablet 12/09/2019 12:00:00 AM EDT 40 mg Oral aborted Take 40 mg by mouth daily [facility] Nortriptyline 25 MG Oral Capsule nortriptyline (PAMELO R) 25 MG capsule nortriptyline (PAMELOR) 25 MG capsule 12/09/2019 12:00:00 AM EDT 50 m g Oral active Take 50 mg by mouth nightly as needed [facility] Tamsulosin hydrochloride 0.4 MG Oral Capsule [Flomax] Flomax 0.4 MG Flomax 0.4 MG 12/09/2019 12:00:00 AM EDT 1.0 {capsule} active Flomax 0.4 MG eCW1 ([facility]) Tamsulosin hydrochloride 0.4 MG Oral Capsule [Flomax] Flomax 0.4 MG Flomax 0.4 MG 12/09/2019 12:00:00 AM EDT 1.0 {capsule} active Flomax 0.4 MG eCW1 ([facility]) 25 mg 12/09/2019 12:00:00 AM EDT capsule 60 TAKE TWO CAPSULES BY MOUTH EVERY DAY BEFORE BEDTIME TAKE TWO CAPSULES BY MOUTH EVERY DAY BEFORE BEDTIME SO LD: 12/12/2019 [facility] Tamsulosin hydrochloride 0.4 MG Oral Capsule [Flomax] Flomax 0.4 MG Flomax 0.4 MG 12/09/2019 12:00:00 AM EDT 1.0 {capsule} active Flomax 0.4 MG eCW1 ([facility]) Tamsulosin hydrochloride 0.4 MG Oral Capsule [Flomax] Flomax 0.4 MG Flomax 0.4 MG 12/09/2019 12:00:00 AM EDT 1.0 {capsule} active Flomax 0.4 MG eCW1 ([facility]) Tamsulosin hydrochloride 0.4 MG Oral Capsule [Flomax] Flomax 0.4 MG Flomax 0.4 MG 12/09/2019 12:00:00 AM EDT 1.0 {capsule} active Flomax 0.4 MG eCW1 ([facility]) Tamsulosin hydrochloride 0.4 MG Oral Capsule [Flomax] Flomax 0.4 MG Flomax 0.4 MG 12/09/2019 12:00:00 AM EDT 1.0 {capsule} active Flomax 0.4 MG eCW1 ([facility]) Tamsulosin hydrochloride 0.4 MG Oral Capsule [Flomax] Flomax 0.4 MG Flomax 0.4 MG 12/09/2019 12:00:00 AM EDT 1.0 {capsule} active Flomax 0.4 MG eCW1 ([facility]) Tamsulosin hydrochloride 0.4 MG Oral Capsule [Flomax] Flomax 0.4 MG Flomax 0.4 MG 12/09/2019 12:00:00 AM EDT 1.0 {capsule} active Flomax 0.4 MG eCW1 ([facility]) Tamsulosin hydrochloride 0.4 MG Oral Capsule [Flomax] Flomax 0.4 MG Flomax 0.4 MG 12/09/2019 12:00:00 AM EDT 1.0 {capsule} active Flomax 0.4 MG eCW1 ([facility]) 0.4 mg 12/09/2019 12:00:00 AM EDT capsule 30 TAKE ONE CAPSULE BY MOUTH EVERY DAY TAKE ONE CAPSULE BY MOUTH EVERY DAY SOLD: 03/22/2020 [facility] Tamsulosin hydrochloride 0.4 MG Oral Capsule [Flomax] Flomax 0.4 MG Flomax 0.4 MG 12/09/2019 12:00:00 AM EDT 1.0 {capsule} active Flomax 0.4 MG eCW1 ([facility]) Tamsulosin hydrochloride 0.4 MG Oral Capsule [Flomax] Flomax 0.4 MG Flomax 0.4 MG 12/09/2019 12:00:00 AM EDT 1.0 {capsule} active Flomax 0.4 MG eCW1 ([facility]) Tamsulosin hydrochloride 0.4 MG Oral Capsule [Flomax] Flomax 0.4 MG Flomax 0.4 MG 12/09/2019 12:00:00 AM EDT 1.0 {capsule} active Flomax 0.4 MG eCW1 ([facility]) atorvastatin 40 MG Oral Tablet ATORVASTATIN CALCIUM 12/09/2019 1 2:00:00 AM EDT tablet 90 TAKE ONE TABLET BY MOUTH EVERY D AY TAKE ONE TABLET BY MOUTH EVERY DAY SOLD: 08/30/2020 [facility] Tamsulosin hydrochloride 0.4 MG Oral Capsule [Flomax] Flomax 0.4 MG Flomax 0.4 MG 12/09/2019 12:00:00 AM EDT 1.0 {capsule} active Flomax 0.4 MG eCW1 ([facility]) Tamsulosin hydrochloride 0.4 MG Oral Capsule [Flomax] Flomax 0.4 MG Flomax 0.4 MG 12/09/2019 12:00:00 AM EDT 1.0 {capsule} active Flomax 0.4 MG eCW1 ([facility]) Tamsulosin hydrochloride 0.4 MG Oral Capsule [Flomax] Flomax 0.4 MG Flomax 0.4 MG 12/09/2019 12:00:00 AM EDT 1.0 {capsule} active Flomax 0.4 MG eCW1 ([facility]) Tamsulosin hydrochloride 0.4 MG Oral Capsule [Flomax] Flomax 0.4 MG Flomax 0.4 MG 12/09/2019 12:00:00 AM EDT 1.0 {capsule} active Flomax 0.4 MG eCW1 ([facility]) Tamsulosin hydrochloride 0.4 MG Oral Capsule [Flomax] Flomax 0.4 MG Flomax 0.4 MG 12/09/2019 12:00:00 AM EDT 1.0 {capsule} active Flomax 0.4 MG eCW1 ([facility]) Tamsulosin hydrochloride 0.4 MG Oral Capsule [Flomax] Flomax 0.4 MG Flomax 0.4 MG 12/09/2019 12:00:00 AM EDT 1.0 {capsule} active Flomax 0.4 MG eCW1 ([facility]) Tamsulosin hydrochloride 0.4 MG Oral Capsule [Flomax] Flomax 0.4 MG Flomax 0.4 MG 12/09/2019 12:00:00 AM EDT 1.0 {capsule} active Flomax 0.4 MG eCW1 ([facility]) atorvastatin 80 MG Oral Tablet atorvastatin (LIPITOR) 80 MG tablet atorvastatin (LIPITOR) 80 MG tablet 10/18/2019 12:00:00 AM EDT active TAKE ONE TABLET BY MOUTH EVERY DAY [facility] 75 mg 10/15/2019 12:00:00 AM [...] = 1 SOLD: 03/22/2020 [facility] 25 mg 04/13/2019 12:00:00 AM EST tablet 30 TAKE ONE TABLET BY MOUTH EVERY DAY TAKE ONE TABLET BY MOUTH EVERY DAY SOLD: 12/12/2019 [facility] 25 mg 04/13/2019 12:00:00 AM EST tablet 30 TAKE ONE TABLET BY MOUTH EVERY DAY TAKE ONE TABLET BY MOUTH EVERY DAY SOLD: 01/20/2020 [facility] 25 mg 04/13/2019 12:00:00 AM EST tablet 30 TAKE ONE TABLET BY MOUTH EVERY DAY TAKE ONE TABLET BY MOUTH EVERY DAY SOLD: 10/18/2019 [facility] 40 mg [...] TWICE A DAY SOLD: 10/18/2019 [facility] Multiple Vitamin tablet [id number] 02/04/2018 12:00:00 AM EST aborted MULTIPLE VITAMIN TABS [facility] Lidocaine Hydrochloride 40 MG/ML Topical Cream Lidocai ne HCl 4 % CREA Lidocaine HCl 4 % CREA 02/04/2018 12:00:00 AM EST abort ed LIDOCAINE HCL 4 % CREA [facility] Acetaminophen 325 MG / Hydrocodone Ronnie trate 10 MG Oral Tablet HYDROcodone- acetaminophen (NORCO) 10-325 MG per tablet HYDROcodone-acetaminophen (NORCO) 10- 325 MG per tablet 01/30/2015 12:00:00 AM EST aborted NORCO 10-325 MG TABS [facility] clopidogrel 75 MG Oral Tablet clopidogrel (PLAVIX) 75 MG tablet clopidogrel (PLAVIX) 75 MG tablet 01/30/2015 12:00:00 AM EST 75 mg Oral active Take 75 mg by mouth daily [facility] Insurance Providers Payer name Policy type / Coverage type Policy ID Covered constitution party ID Covered constitution party's relationship to alfaro Policy Alfaro Plan Information MEDICAID M [id number] Self [id number] [facility] I [id number] Self [id number] [facility] I [id number] Self [id number] [facility] [id number] SP [id number] [facility] [id number] SP [id number] MEDICAID [id number] SP [id number] [facility] COMM[facility] [employer] [id number] SP [id number] [facility] COMM[facility] PL[facility] [id number] SP [id number] [facility] Health Maintenance Organization (HMO) [id number] Self [id number] [employer] COMM[employer] [facility] [id number] SP [id number] MEDICARE [id number] Kristine [id number] [employer] MEDICARE [id number] Kristine [id number] [employer] MEDIC[employer] Medicare [id number] xxxxxxxxxxxx [id number] [employer] MEDICARE [id number] Kristine [id number] INSURANCE COVID-19 COVID Kristine C OVID INSURANCE COVID-19 COVID Kristine C OVID INSURANCE COVID-19 [id number] [id number] INSURANCE COVID-19 COVID Kristine C OVID [employer] COMMUNITY PLAN [facility] [id number] [facility] COMMUN PLAN [id number] ANSI-Medicaid [id number] ANSI-Medicaid [id number] ANSI-Medicaid [id number] ANSI-Medicaid [id number] ANSI-Medicaid [id number] ANSI-Medicaid [id number] ANSI-Medicaid [id number] ANSI-Medicaid [id number] ANSI-Medicaid [id number] ANSI-Medicaid [id number] ANSI-Medicaid [id number] ANSI-Medicaid [id number] [facility] Commercial [id number] Self [id number] ANSI-Medicaid [id number] ANSI-Medicaid [id number] ANSI-Medicaid [id number] ANSI-Medicaid [id number] ANSI-Medicaid [id number] ANSI-Medicaid [id number] ANSI-Medicaid [id number] ANSI-Medicaid [id number] ANSI-Medicaid [id number] ANSI-Medicaid [id number] ANSI-Medicaid [id number] ANSI-Medicaid [id number] ANSI-Medicaid [id number] ANSI-Medicaid [id number] ANSI-Medicaid [id number] ANSI-Medicaid [id number] ANSI-Medicaid [id number] ANSI-Medicaid [id number] ANSI-Medicaid [id number] ANSI-Medicaid [id number] ANSI-Medicaid [id number] ANSI-Medicaid [id number] ANSI-Medicaid [id number] ANSI-Medicaid [id number] ANSI-Medicaid [id number] ANSI-Medicaid [id number] ANSI-Medicaid [id number] ANSI-Medicaid [id number] ANSI-Medicaid [id number] ANSI-Medicaid [id number] ANSI-Medicaid [id number] ANSI-Medicaid [id number] ANSI-Medicaid [id number] ANSI-Medicaid [id number] ANSI-Medicaid [id number] ANSI-Medicaid [id number] MEDICAID [id number] SP [id number] MEDICAID [id number] SP [id number] MEDICAID M [id number] S [id number] [facility] Maintenance Organization ([facility] [id number] Self [id number] MEDICAID M [id number] S [id number] [facility] UNAVAILABLE SP UNAVAILABLE [facility] [id number] Self [id number] JOSE MANUEL [place] UNAVAILABLE SP U NAVAILABLE JOSE MANUEL [id number] SP [id number] JOSE MANUEL [id number] SP [id number] [facility] [id number] Self [id number] [place] [facility] [id number] Self [id number] JOSE MANUEL CARE [facility] [id number] S [id number] [facility] [id number] SP [id number] MEDICAID M [id number] S [id number] [facility] Maintenance Organization ([facility] [id number] Self 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 O [id number] S [id number] COUNTS INCLUDE 234 BEDS AT THE [facility] [id number] SP [id number] [place] MEDICARE [id number] SP [id number] [facility] O [id number] S [id number] [facility]-Medicaid [id number] ANS-Medicaid [id number] ANS-Medicaid [id number] ANS-Medicaid [id number] ANS-Medicaid [id number] [facility]-Medicaid [id number] Problems, Conditions, and Diagnoses Code Display Name Description Problem Type Effective Dates Data Source(s) I10 Essential (primary) hypertension Essential (primary) h ypertension Diagnosis 09/17/2020 10:10:38 AM EDT [facility] I73.9 Peripheral vascular disease, unspecified Peripheral vascular disease, unspecified Diagnosis 09/17/2020 10:10:38 AM EDT [facility] I35.0 Nonrheumatic aortic (valve) stenosis Nonrheumati c aortic (valve) stenosis Diagnosis 09/17/2020 10:10:38 AM EDT [facility] E78.5 Hyperlipidemia, unspecified Hyperlipidemia, unspecifie d Diagnosis 09/17/2020 10:10:38 AM EDT [facility] I35.1 Nonrheumatic aortic (valve) insufficienc y Nonrheumatic aortic (valve) insufficienc Diagnosis 05/18/2020 10:13:01 AM EDT [facility] F17.210 Nicotine dependence, cigarettes, uncompl icated Nicotine dependence, cigarettes, uncompl Diagnosis 05/16/2020 10:59:12 AM EDT [facility] I35.1 Nonrheumatic aortic (valve) insufficienc y Nonrheumatic aortic (valve) insufficienc Diagnosis 05/02/2020 05:24:00 AM EDT [facility] U07.1 COVID-19 COVID-19 Diagnosis 04/27/2020 09:32:34 AM ED T [facility] G62.9 [id number] Peripheral polyneuropathy Problem 08/06/2020 12:00:00 AM EDT eCW1 ([facility]) I73.9 [id number] Peripheral angiopathies Problem 08/06/2020 1 2:00:00 AM EDT eCW1 ([facility]) Z95.2 [id number] S/P AVR Problem 05/30/2020 12:00:00 AM EDT eCW1 ([facility]) I35.1 Nonrheumatic aortic valve insufficiency Nonrheumatic aortic valve insufficiency [id number] 02/28/2020 12:00:00 AM EST [facility] I35.0 Aortic valve stenosis Aortic valve stenosis [id number] 02/17/2020 12:00:00 AM EST [facility] K64.4 [id number] External hemorrhoids Problem 01/16/2020 12:0 0:00 AM EST eCW1 ([facility]) N40.1 [id number] Benign prostatic hyp erplasia with lower urinary tract symptoms Problem 12/09/2019 12:00:00 AM EDT eCW1 ([facility]) Surgeries/Procedures Procedure Description Date Indications Data Source(s) OFFICE OUTPATIENT VISIT 25 MINUTES 10/22/2020 12:00:00 AM EDT MEDFELISHA ([facility], ) BLOOD COUNT COMPLETE AUTO&AUTO DIFRNTL WBC COUNT <td>C BC AND DIFFERENTIAL</td><td>Routine</td><td>08/07/2020</td><td></td><td> </td> 08/07/2020 12:00:00 AM EDT [facility] IRON <td>IRON</td><td>Routine</td ><td>08/07/2020</td><td></td><td> </td> 08/07/2020 12:00:00 AM EDT [facility] HEMOGLOBIN GLYCOSYLATED A1C <td>HEMOGLOBIN A1C</td><td>Routine</td><td>08/07/2020</td><td></td><td> </td> 08/07/2020 12:00:00 AM EDT [facility] FERRITIN <td>FERRITIN</td><td>Routine </td><td>08/07/2020</td><td></td><td> </td> 08/07/2020 12:00:00 AM EDT [facility] OFFICE OUTPATIENT VISIT 15 MINUTES 06/21/2020 12:00:00 AM EDT MEDENT ([facility], ) ECG ROUTINE ECG W/LEAST 12 LDS W/I&R <td>POCT AMB EKG</td><td>Routine</td><td>05/16/2020 12:52 PM EDT</td><td> Nonrheumatic aortic valve stenosis</td><td> </td> 05/16/2020 04:52:00 PM EDT Nonrheumatic aortic valve stenosis [facility] Nonrheumatic aortic valve stenosis BLOOD OCCULT PEROXIDASE ACTV QUAL FECES 1 DETER <td>OC CULT BLOOD X 1, STOOL</td><td>Routine</td><td>05/06/2020 11:30 AM EDT</td><td></td><td> </td> 05/06/2020 03:30:00 PM EDT [facility] BLOOD COUNT COMPLETE AUTOMATED <td>CBC</td><td>Timed</ td><td>05/06/2020 2:22 AM EDT</td><td></td><td> </td> 05/06/2020 06:22:00 AM EDT [facility] MAGNESIUM <td>MAGNESIUM</td><td>Timed< /td><td>05/06/2020 2:22 AM EDT</td><td></td><td> </td> 05/06/2020 06:22:00 AM EDT [facility] BASIC METABOLIC PANEL CALCIUM TOTAL <td>BASIC METABOLI C PANEL</td><td>Timed</td><td>05/06/2020 2:22 AM EDT</td><td></td><td> </td> 05/06/2020 06:22:00 AM EDT [facility] GLUC BLD GLUC MNTR DEV CLEARED FDA SPEC HOME USE <td>P OCT GLUCOSE</td><td>Routine</td><td>05/05/2020 1:23 PM EDT</td><td></td><td> </td> 05/05/2020 05:23:00 PM EDT [facility] GLUC BLD GLUC MNTR DEV CLEARED FDA SPEC HOME USE <td>P OCT GLUCOSE</td><td>Routine</td><td>05/05/2020 8:29 AM EDT</td><td></td><td> </td> 05/05/2020 12:29:00 PM EDT [facility] BLOOD COUNT HEMOGLOBIN <td>HEMOGLOBIN</td><td>Routi ne</td><td>05/05/2020 6:25 AM EDT</td><td></td><td> </td> 05/05/2020 10:25:00 AM EDT [facility] BLOOD COUNT HEMATOCRIT <td>HEMATOCRIT</td><td>Routi ne</td><td>05/05/2020 6:25 AM EDT</td><td></td><td> </td> 05/05/2020 10:25:00 AM EDT [facility] BLOOD COUNT COMPLETE AUTOMATED <td>CBC</td><td>Timed</ td><td>05/05/2020 2:52 AM EDT</td><td></td><td> </td> 05/05/2020 06:52:00 AM EDT [facility] MAGNESIUM <td>MAGNESIUM</td><td>Timed< /td><td>05/05/2020 2:52 AM EDT</td><td></td><td> </td> 05/05/2020 06:52:00 AM EDT [facility] BASIC METABOLIC PANEL CALCIUM TOTAL <td>BASIC METABOLI C PANEL</td><td>Timed</td><td>05/05/2020 2:52 AM EDT</td><td></td><td> </td> 05/05/2020 06:52:00 AM EDT [facility] GLUC BLD GLUC MNTR DEV CLEARED FDA SPEC HOME USE <td>P OCT GLUCOSE</td><td>Routine</td><td>05/04/2020 5:03 PM EDT</td><td></td><td> </td> 05/04/2020 09:03:00 PM EDT [facility] XR CHEST PA AND LATERAL <td>XR CHEST PA AND LATERAL</td><td>STAT</td><td>05/04/2020 10:32 AM EDT</td><td></td><td> </td> 05/04/2020 02:32:03 PM EDT [facility] GLUC BLD GLUC MNTR DEV CLEARED FDA SPEC HOME USE <td>P OCT GLUCOSE</td><td>Routine</td><td>05/04/2020 9:39 AM EDT</td><td></td><td> </td> 05/04/2020 01:39:00 PM EDT [facility] ECG ROUTINE ECG W/LEAST 12 LDS TRCG ONLY W/O I&R <td>E CG 12- LEAD</td><td>Routine</td><td>05/04/2020 4:14 AM EDT</td><td></td><td></td> 05/04/2020 08:14:24 AM EDT [facility] BLOOD COUNT COMPLETE AUTOMATED <td>CBC</td><td>Timed</ td><td>05/04/2020 2:22 AM EDT</td><td></td><td> </td> 05/04/2020 06:22:00 AM EDT [facility] MAGNESIUM <td>MAGNESIUM</td><td>Timed< /td><td>05/04/2020 2:22 AM EDT</td><td></td><td> </td> 05/04/2020 06:22:00 AM EDT [facility] BASIC METABOLIC PANEL CALCIUM TOTAL <td>BASIC METABOLI C PANEL</td><td>Timed</td><td>05/04/2020 2:22 AM EDT</td><td></td><td> </td> 05/04/2020 06:22:00 AM EDT [facility] GLUC BLD GLUC MNTR DEV CLEARED FDA SPEC HOME USE <td>P OCT GLUCOSE</td><td>Routine</td><td>05/03/2020 6:28 PM EDT</td><td></td><td> </td> 05/03/2020 10:28:00 PM EDT [facility] GLUC BLD GLUC MNTR DEV CLEARED FDA SPEC HOME USE <td>P OCT GLUCOSE</td><td>Routine</td><td>05/03/2020 11:28 AM EDT</td><td></td><td> </td> 05/03/2020 03:28:00 PM EDT [facility] GLUC BLD GLUC MNTR DEV CLEARED FDA SPEC HOME USE <td>P OCT GLUCOSE</td><td>Routine</td><td>05/03/2020 7:25 AM EDT</td><td></td><td> </td> 05/03/2020 11:25:00 AM EDT [facility] GLUC BLD GLUC MNTR DEV CLEARED FDA SPEC HOME USE <td>P OCT GLUCOSE</td><td>Routine</td><td>05/03/2020 2:26 AM EDT</td><td></td><td> </td> 05/03/2020 06:26:00 AM EDT [facility] BLOOD COUNT COMPLETE AUTOMATED <td>CBC</td><td>Timed</ td><td>05/03/2020 2:24 AM EDT</td><td></td><td> </td> 05/03/2020 06:24:00 AM EDT [facility] MAGNESIUM <td>MAGNESIUM</td><td>Timed< /td><td>05/03/2020 2:24 AM EDT</td><td></td><td> </td> 05/03/2020 06:24:00 AM EDT [facility] CALCIUM IONIZED <td>CALCIUM, IONIZED</td><td >Timed</td><td>05/03/2020 2:24 AM EDT</td><td></td><td> </td> 05/03/2020 06:24:00 AM EDT [facility] BASIC METABOLIC PANEL CALCIUM TOTAL <td>BASIC METABOLI C PANEL</td><td>Timed</td><td>05/03/2020 2:24 AM EDT</td><td></td><td> </td> 05/03/2020 06:24:00 AM EDT [facility] GLUC BLD GLUC MNTR DEV CLEARED FDA SPEC HOME USE <td>P OCT GLUCOSE</td><td>Routine</td><td>05/03/2020 12:18 AM EDT</td><td></td><td> </td> 05/03/2020 04:18:00 AM EDT [facility] BLOOD COUNT COMPLETE AUTOMATED <td>CBC</td><td>STAT</t d><td>05/02/2020 10:11 PM EDT</td><td></td><td> </td> 05/03/2020 02:11:00 AM EDT [facility] POTASSIUM SERUM PLASMA/WHOLE BLOOD <td>POTASSIUM</td><td>Routine</td><td>05/02/2020 10:11 PM EDT</td><td></td><td> </td> 05/03/2020 02:11:00 AM EDT [facility] GLUC BLD GLUC MNTR DEV CLEARED FDA SPEC HOME USE <td>P OCT GLUCOSE</td><td>Routine</td><td>05/02/2020 10:07 PM EDT</td><td></td><td> </td> 05/03/2020 02:07:00 AM EDT [facility] GLUC BLD GLUC MNTR DEV CLEARED FDA SPEC HOME USE <td>P OCT GLUCOSE</td><td>Routine</td><td>05/02/2020 8:20 PM EDT</td><td></td><td> </td> 05/03/2020 12:20:00 AM EDT [facility] POC ARTERIAL BLOOD GAS <td>POC ARTERIAL BLOOD GAS</td><td>Routine</td><td>05/02/2020 7:56 PM EDT</td><td></td><td> </td> 05/02/2020 11:56:00 PM EDT [facility] GLUC BLD GLUC MNTR DEV CLEARED FDA SPEC HOME USE <td>P OCT GLUCOSE</td><td>Routine</td><td>05/02/2020 7:17 PM EDT</td><td></td><td> </td> 05/02/2020 11:17:00 PM EDT [facility] GLUC BLD GLUC MNTR DEV CLEARED FDA SPEC HOME USE <td>P OCT GLUCOSE</td><td>Routine</td><td>05/02/2020 5:07 PM EDT</td><td></td><td> </td> 05/02/2020 09:07:00 PM EDT [facility] POTASSIUM SERUM PLASMA/WHOLE BLOOD <td>POTASSIUM</td>< td>STAT</td><td>05/02/2020 5:06 PM EDT</td><td></td><td> </td> 05/02/2020 09:06:00 PM EDT [facility] GLUC BLD GLUC MNTR DEV CLEARED FDA SPEC HOME USE <td>P OCT GLUCOSE</td><td>Routine</td><td>05/02/2020 3:18 PM EDT</td><td></td><td> </td> 05/02/2020 07:18:00 PM EDT [facility] LEVEL IV SURG PATHOLOGY GROSS&MICROSCOPIC EXAM <td>COX NORTH HISTOLOGY</td><td>Routine</td><td>05/02/2020 2:43 PM EDT</td><td></td><td> </td> 05/02/2020 06:43:00 PM EDT [facility] GLUC BLD GLUC MNTR DEV CLEARED FDA SPEC HOME USE <td>P OCT GLUCOSE</td><td>Routine</td><td>05/02/2020 1:36 PM EDT</td><td></td><td> </td> 05/02/2020 05:36:00 PM EDT [facility] POC ARTERIAL BLOOD GAS <td>POC ARTERIAL BLOOD GAS</td><td>Routine</td><td>05/02/2020 1:21 PM EDT</td><td></td><td> </td> 05/02/2020 05:21:00 PM EDT [facility] XR CHEST PORTABLE <td>XR CHEST PORTABLE</td><t d>STAT</td><td>05/02/2020 1:15 PM EDT</td><td></td><td> </td> 05/02/2020 05:15:52 PM EDT [facility] POC CALCIUM BG <td>POC CALCIUM BG</td><td>R outine</td><td>05/02/2020 1:15 PM EDT</td><td></td><td> </td> 05/02/2020 05:15:00 PM EDT [facility] GLUC BLD GLUC MNTR DEV CLEARED FDA SPEC HOME USE <td>P OCT GLUCOSE</td><td>Routine</td><td>05/02/2020 1:09 PM EDT</td><td></td><td> </td> 05/02/2020 05:09:00 PM EDT [facility] ECG ROUTINE ECG W/LEAST 12 LDS TRCG ONLY W/O I&R <td>E CG 12- LEAD</td><td>Routine</td><td>05/02/2020 1:06 PM EDT</td><td></td><td></td> 05/02/2020 05:06:38 PM EDT [facility] BLOOD COUNT COMPLETE AUTOMATED <td>CBC</td><td>STAT</t d><td>05/02/2020 1:06 PM EDT</td><td></td><td> </td> 05/02/2020 05:06:00 PM EDT [facility] MAGNESIUM <td>MAGNESIUM</td><td>STAT</ td><td>05/02/2020 1:06 PM EDT</td><td></td><td> </td> 05/02/2020 05:06:00 PM EDT [facility] CALCIUM IONIZED <td>CALCIUM, IONIZED</td><td >STAT</td><td>05/02/2020 1:06 PM EDT</td><td></td><td> </td> 05/02/2020 05:06:00 PM EDT [facility] BASIC METABOLIC PANEL CALCIUM TOTAL <td>BASIC METABOLI C PANEL</td><td>STAT</td><td>05/02/2020 1:06 PM EDT</td><td></td><td> </td> 05/02/2020 05:06:00 PM EDT [facility] POC ACT <td>POC ACT</td><td>Routine< /td><td>05/02/2020 11:53 AM EDT</td><td></td><td> </td> 05/02/2020 03:53:00 PM EDT [facility] POC ARTERIAL BLOOD GAS W LYTES <td>POC ARTERIAL BLOOD GAS W LYTES</td><td>Routine</td><td>05/02/2020 11:53 AM EDT</td><td></td><td> </td> 05/02/2020 03:53:00 PM EDT [facility] THROMBOPLASTIN TIME PARTIAL PLASMA/WHOLE BLOOD <td>APTT</td><td>Routine</td><td>05/02/2020 11:52 AM EDT</td><td></td><td> </td> 05/02/2020 03:52:00 PM EDT [facility] PROTHROMBIN TIME <td>PROTIME-INR</td><td>Rout ine</td><td>05/02/2020 11:52 AM EDT</td><td></td><td> </td> 05/02/2020 03:52:00 PM EDT [facility] POC VENOUS BLOOD GAS W LYTES <td>POC VENOUS BLOOD GAS W LYTES</td><td>Routine</td><td>05/02/2020 11:25 AM EDT</td><td></td><td> </td> 05/02/2020 03:25:00 PM EDT [facility] POC ACT <td>POC ACT</td><td>Routine< /td><td>05/02/2020 11:24 AM EDT</td><td></td><td> </td> 05/02/2020 03:24:00 PM EDT [facility] POC VENOUS BLOOD GAS W LYTES <td>POC VENOUS BLOOD GAS W LYTES</td><td>Routine</td><td>05/02/2020 10:36 AM EDT</td><td></td><td> </td> 05/02/2020 02:36:00 PM EDT [facility] POC ACT <td>POC ACT</td><td>Routine< /td><td>05/02/2020 10:36 AM EDT</td><td></td><td> </td> 05/02/2020 02:36:00 PM EDT [facility] POC ACT <td>POC ACT</td><td>Routine< /td><td>05/02/2020 10:08 AM EDT</td><td></td><td> </td> 05/02/2020 02:08:00 PM EDT [facility] POC ARTERIAL BLOOD GAS W LYTES <td>POC ARTERIAL BLOOD GAS W LYTES</td><td>Routine</td><td>05/02/2020 10:08 AM EDT</td><td></td><td> </td> 05/02/2020 02:08:00 PM EDT [facility] POC ARTERIAL BLOOD GAS W LYTES <td>POC ARTERIAL BLOOD GAS W LYTES</td><td>Routine</td><td>05/02/2020 9:11 AM EDT</td><td></td><td> </td> 05/02/2020 01:11:00 PM EDT [facility] POC ACT <td>POC ACT</td><td>Routine< /td><td>05/02/2020 9:10 AM EDT</td><td></td><td> </td> 05/02/2020 01:10:00 PM EDT [facility] RPLCMT PROST AORTIC VALVE XCP HOMOGRF/STENT <td>REPLAC EMENT, AORTIC VALVE, MINIMALLY INVASIVE, RIGHT THORACOTOMY APPROACH, USING HEARTPORT TECHNIQUE</td><td></td><td>05/02/2020 8:34 AM EDT</td><td> Nonrheumatic aortic valve insufficiency</td><td></td> 05/02/2020 12:34:00 PM EDT - 05/02/2020 05:34:00 PM EDT Nonrheumatic aortic valve insufficiency [facility] Nonrheumatic aortic valve insufficiency ECG TRANSESOPHAG R-T 2D W/PRB IMG ACQUISJ I&R <td>ECHO CARDIOGRAM TRANSESOPHAGEAL</td><td>Routine</td><td>05/02/2020 7:53 AM EDT</td><td></td><td></td> 05/02/2020 11:53:31 AM EDT [facility] ROOM TEMP AB SCREEN <td>ROOM TEMP AB SCREEN</td> <td>Routine</td><td>05/02/2020 7:14 AM EDT</td><td></td><td> </td> 05/02/2020 11:14:00 AM EDT [facility] BLOOD TYPING ABO <td>TYPE AND SCREEN</td><td> Routine</td><td>05/02/2020 7:14 AM EDT</td><td></td><td> </td> 05/02/2020 11:14:00 AM EDT [facility] GLUC BLD GLUC MNTR DEV CLEARED FDA SPEC HOME USE <td>P OCT GLUCOSE</td><td>Routine</td><td>05/02/2020 6:36 AM EDT</td><td></td><td> </td> 05/02/2020 10:36:00 AM EDT [facility] URNLS DIP STICK/TABLET RGNT AUTO W/O MICROSCOPY <td>UR INALYSIS W/O MICRO</td><td>Routine</td><td>04/27/2020 12:00 PM EDT</td><td> Nonrheumatic aortic valve insufficiency</td><td> </td> 04/27/2020 04:00:00 PM EDT Nonrheumatic aortic valve insufficiency [facility] Nonrheumatic aortic valve insufficiency ECG ROUTINE ECG W/LEAST 12 LDS TRCG ONLY W/O I&R <td>E CG 12- LEAD</td><td>Routine</td><td>04/27/2020 11:31 AM EDT</td><td> Nonrheumatic aortic valve insufficiency</td><td></td> 04/27/2020 03:31:21 PM EDT Nonrheumatic aortic valve insufficiency [facility] Nonrheumatic aortic valve insufficiency NT PRO BNP <td>NT PRO BNP</td><td>Routi ne</td><td>04/27/2020 11:20 AM EDT</td><td> Nonrheumatic aortic valve insufficiency</td><td> </td> 04/27/2020 03:20:00 PM EDT Nonrheumatic aortic valve insufficiency [facility] Nonrheumatic aortic valve insufficiency THROMBOPLASTIN TIME PARTIAL PLASMA/WHOLE BLOOD <td>APTT</td><td>Routine</td><td>04/27/2020 11:20 AM EDT</td><td> Nonrheumatic aortic valve insufficiency</td><td> </td> 04/27/2020 03:20:00 PM EDT Nonrheumatic aortic valve insufficiency [facility] Nonrheumatic aortic valve insufficiency PROTHROMBIN TIME <td>PROTIME-INR</td><td>Rout ine</td><td>04/27/2020 11:20 AM EDT</td><td> Nonrheumatic aortic valve insufficiency</td><td> </td> 04/27/2020 03:20:00 PM EDT Nonrheumatic aortic valve insufficiency [facility] Nonrheumatic aortic valve insufficiency BLOOD COUNT COMPLETE AUTO&AUTO DIFRNTL WBC COUNT <td>C BC AND DIFFERENTIAL</td><td>Routine</td><td>04/27/2020 11:20 AM EDT</td><td> Nonrheumatic aortic valve insufficiency</td><td> </td> 04/27/2020 03:20:00 PM EDT Nonrheumatic aortic valve insufficiency [facility] Nonrheumatic aortic valve insufficiency HEMOGLOBIN GLYCOSYLATED A1C <td>HEMOGLOBIN A1C</td><td>Routine</td><td>04/27/2020 11:20 AM EDT</td><td> Nonrheumatic aortic valve insufficiency</td><td> </td> 04/27/2020 03:20:00 PM EDT Nonrheumatic aortic valve insufficiency [facility] Nonrheumatic aortic valve insufficiency COMPREHENSIVE METABOLIC PANEL <td>COMPREHENSIVE METABO LIC PANEL</td><td>Routine</td><td>04/27/2020 11:20 AM EDT</td><td> Nonrheumatic aortic valve insufficiency</td><td> </td> 04/27/2020 03:20:00 PM EDT Nonrheumatic aortic valve insufficiency [facility] Nonrheumatic aortic valve insufficiency POC ARTERIAL BLOOD GAS <td>POC ARTERIAL BLOOD GAS</td><td>Routine</td><td>04/02/2020 12:51 PM EST</td><td></td><td> </td> 04/02/2020 05:51:00 PM EST [facility] ECG ROUTINE ECG W/LEAST 12 LDS W/I&R <td>POCT AMB EKG</td><td>Routine</td><td>03/15/2020 11:12 AM EST</td><td> Aortic valve stenosis, etiology of cardiac valve disease unspecified</td><td> </td> 03/15/2020 04:12:00 PM EST Aortic valve stenosis, etiology of cardiac valve disea se unspecified [facility] Aortic valve stenosis, etiology of cardi ac valve disease unspecified RADEX SPINE ENTIRE SURVEY STD ANTEROPOST&LAT <td>CARDI AC CATHETERIZATION</td><td>Routine</td><td>02/24/2020 9:53 AM EST</td><td> Aortic valve stenosis, etiology of cardiac valve disease unspecified Peripheral vascular disease Hyperlipidemia, unspecified hyperlipidemia type Essential hypertension Cigarette smoker</td><td> </td> 02/24/2020 02:53:34 PM EST Cigarette smokerEssential hypertensionHy perlipidemia, unspecified hyperlipidemia typePeripheral vascular diseaseAortic valve stenosis, etiology of cardiac valve disease unspecified [facility] Cigarette smoker Essential hypertension Hyperlipidemia, unspecified hyperlipidem ia type Peripheral vascular disease Aortic valve stenosis, etiology of cardi ac valve disease unspecified ECG ROUTINE ECG W/LEAST 12 LDS TRCG ONLY W/O I&R <td>E CG 12- LEAD</td><td>Routine</td><td>02/24/2020 6:33 AM EST</td><td></td><td></td> 02/24/2020 11:33:08 AM EST [facility] BLOOD COUNT COMPLETE AUTOMATED <td>CBC</td><td>STAT</t d><td>02/24/2020 6:31 AM EST</td><td></td><td> </td> 02/24/2020 11:31:00 AM EST [facility] BASIC METABOLIC PANEL CALCIUM TOTAL <td>BASIC METABOLI C PANEL</td><td>STAT</td><td>02/24/2020 6:31 AM EST</td><td></td><td> </td> 02/24/2020 11:31:00 AM EST [facility] ECG ROUTINE ECG W/LEAST 12 LDS W/I&R <td>POCT AMB EKG</td><td>Routine</td><td>02/09/2020 2:34 PM EST</td><td> Aortic valve stenosis, etiology of cardiac valve disease unspecified</td><td> </td> 02/09/2020 07:34:00 PM EST Aortic valve stenosis, etiology of cardiac valve disea se unspecified [facility] Aortic valve stenosis, etiology of cardi ac valve disease unspecified Results ID Date Data Source BREAST U/S UNILATERAL COMPLETE 10/10/2020 12:00:00 AM EDT eC W1 ([facility]) Name Value Range Interpretation Code Description Data Debbie rce(s) Supporting Document(s) BREAST U/S UNILATERAL COMPLETE eCW1 ([facility]) ID Date Data Source FERRITIN 10/08/2020 12:00:00 AM EDT eCW1 ([facility]) Name Value Range Interpretation Code Description Data Debbie rce(s) Supporting Document(s) 94 26-388 FERRITIN eCW1 ([facility]) ID Date Data Source IRON (FE) 10/08/2020 12:00:00 AM EDT eCW1 ([facility]) Name Value Range Interpretation Code Description Data Debbie rce(s) Supporting Document(s) 83 65-175 IRON (FE) eCW1 ([facility]) ID Date Data Source Comprehensive Metabolic Profile (CMP) 10/08/2020 12:00:00 AM EDT eCW1 ([facility]) Name Value Range Interpretation Code Description Data Debbie rce(s) Supporting Document(s) 116 70-100 GLUCOSE, FASTING eCW1 ([facility]) 10 7-18 BLOOD UREA NITROGEN eCW1 ([facility]) 0.71 0.70-1.30 CREATININE FOR GFR eCW1 ([facility]) 135 136-145 SODIUM LEVEL eCW1 ([facility]) > 60.0 >49 GLOMERULAR FILTRATION RATE eCW 1 ([facility]) 4.3 3.5-5.1 POTASSIUM SERUM eCW1 ([facility]) 32 21-32 CARBON DIOXIDE LEVEL eCW1 ([facility]) 9.7 8.8-10.2 CALCIUM LEVEL eCW1 ([facility]) 96 98-107 CHLORIDE LEVEL eCW1 ([facility]) 36 7-37 AST/SGOT eCW1 ([facility]) 50 12-78 ALT/SGPT eCW1 ([facility]) 7.3 6.4-8.2 TOTAL PROTEIN eCW1 ([facility]) 148 45-117 ALKALINE PHOSPHATASE eCW1 ([facility]) 0.6 0.2-1.0 BILIRUBIN,TOTAL eCW1 ([facility]) 1.3 ALBUMIN/GLOBULIN RATIO eCW1 ([facility]) 4.1 3.2-5.2 ALBUMIN eCW1 ([facility]) ID Date Data Source CPK CREATINE PHOSPHOKINASE 10/08/2020 12:00:00 AM EDT eCW1 ( [facility]) Name Value Range Interpretation Code Description Data Debbie rce(s) Supporting Document(s) 186 39-308 CPK CREATINE PHOSPHOKINASE eCW 1 ([facility]) ID Date Data Source CBC with Differential 10/08/2020 12:00:00 AM EDT eCW1 ([facility]) Name Value Range Interpretation Code Description Data Debbie rce(s) Supporting Document(s) 7.7 4.0-10.0 WHITE BLOOD COUNT eCW1 ([facility]) 16.8 13.5-17.5 HEMOGLOBIN eCW1 ([facility]) 5.38 4.30-6.10 RED BLOOD COUNT eCW1 ([facility]) 31.2 27.0-33.0 MEAN CORPUSCULAR HEMOGLOB IN eCW1 ([facility]) 48.0 42.0-52.0 HEMATOCRIT eCW1 ([facility]) 89.2 80.0-96.0 MEAN CORPUSCULAR VOLUME e CW1 ([facility]) 14.6 11.5-14.5 RED CELL DISTRIBUTION WID TH eCW1 ([facility]) 35.0 32.0-36.5 MEAN CORPUSCULAR HGB CONC eCW1 ([facility]) 319 150-450 PLATELET COUNT, AUTOMATED eCW1 ([facility]) 17.7 24.0-44.0 LYMPH % eCW1 ([facility]) 67.4 36.0-66.0 NEUTROPHILS % eCW1 ([facility]) 12.7 2.0-8.0 MONO % eCW1 ([facility]) 0.6 0.0-1.0 BASO % eCW1 ([facility]) 5.2 1.5-8.5 NEUTROPHILS # eCW1 ([facility]) 0.8 0.0-3.0 EOS % eCW1 ([facility]) 1.4 1.5-5.0 LYMPH # eCW1 ([facility]) 1.0 0.0-0.8 MONO # eCW1 ([facility]) 0.1 0.0-0.5 EOS # eCW1 ([facility]) 0.1 0.0-0.2 BASO # eCW1 ([facility]) ID Date Data Source LIPID PANEL (CARDIAC RISK) 10/08/2020 12:00:00 AM EDT eCW1 ( [facility]) Name Value Range Interpretation Code Description Data Debbie rce(s) Supporting Document(s) Triglyceride [Mass/volume] in Serum or Plasma by calculation 100 <150 TRIGLYCERIDES LEVEL eCW1 ([facility]) Cholesterol [Moles/volume] in Serum or Plasma 181 <200 CHOLESTEROL LEVEL eCW1 ([facility]) Cholesterol in HDL [Moles/volume] in Serum or Plasma 54 >40 HDL CHOLESTEROL eCW1 ([facility]) Cholesterol in LDL [Mass/volume] in Serum or Plasma by calculation 107 <100 LDL CHOLESTEROL [facility] ([facility]) 127 NON-HDL-C eCW1 ([facility]) 3.351 <5 CHOLESTEROL RISK RATIO eCW ([facility]) ID Date Data Source FREE T4 & TSH PANEL 10/08/2020 12:00:00 AM EDT eCW1 ([facility]) Name Value Range Interpretation Code Description Data Debbie rce(s) Supporting Document(s) 1.310 0.358-3.740 THYROID STIMULATING HORM ONE eCW1 ([facility]) 0.84 0.76-1.46 FREE T4 eCW1 ([facility]) ID Date Data Source VITAMIN B12 LEVEL 08/07/2020 12:00:00 AM EDT eCW1 ([facility]) Name Value Range Interpretation Code Description Data Debbie rce(s) Supporting Document(s) 388 587-091 VITAMIN B12 LEVEL eCW1 ([facility]) ID Date Data Source [id number] 08/07/2020 12:00:00 AM EDT eCW1 ([facility]) Name Value Range Interpretation Code Description Data Debbie rce(s) Supporting Document(s) Hemoglobin A1c/Hemoglobin.total in Blood 5.4 HEMOGLOBIN A1c eCW1 ([facility]) ID Date Data Source [id number] 05/18/2020 10:46:01 AM EDT [facility] NT INFORMATIONPatient MRN Name Date of Age Gend*PT [id number] Hiral Ferreira 1960 60 years M ---PT Location Admission Date/Time Visit ID Attending Provider --- --- --- --- EPI ID CSN Admitting Provider [id number] ---Cardiothoracic Surgery Post Operative Follow UpName: Hiral Ferreira : 1960MRN: [id number] Visit Date: May 18SSESSMENT:Patient is 2 weeks s/p AVR. From a cardiac surgery standpoint, patient is doingwell. VSS and incisions are healed.PLAN:-No lifting, pushing, or pulling > 15 lbs x 6 weeks from surgery date.-The patient was educated on endocarditis prophylaxis.-call with any concerns regarding incisions, fevers, or chillsFollow up with Skip Tracer: Dr. Villaseñor and PCP: Rob Parr (Vascular) -follows carotidsReturn to office prnSUBJECTIVE:Hiral Ferreira is a pleasant 60 years male who recently underwent REPLACEMENT,AORTIC VALVE (INSPIRIS 25MM), MINIMALLY INVASIVE, RIGHT THORACOTOMY APPROACH,USING HEARTPORT TECHNIQUE with YOLA on by Dr. Genao.Patient tolerated theprocedure well. Post op, patient had a GI bleed and received a bloodtransfusion. Patient's plavix was held and is able to restart once CBC resultsreturn to normal limits. Patient was discharged to home.Patient comes in for first post op appt. Patient states he is feeling good.Patient states he has incisional discomfort when he is more active. Patient isincreasing his walking and tolerating well. The patient denies any fevers,chills, dizziness, dyspnea, chest pain or palpitations. The patient denies anyfevers, chills, dizziness, dyspnea, chest pain or palpitations. 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 Villaseñor CTA abdomen and LE 01/19/2015 50-70% L iliac stenosis, 80-85% R iliac stenosis, occlusion of R poplitealartery Depression Diverticulitis Echocardiogram 12/06/2014 LV EF 55-60%, mild to moderate (CAROLA 1.3cm2, mean gradient 23mmHg) - [facility] Echocardiogram 01/08/2016 Normal LV size with [...] Left ventriculography; Surgeon: Marla Marino MD; Laterality:N/A; CARDIAC VALVE SURGERY N/A 05/02/2020 Procedure: REPLACEMENT, AORTIC VALVE (INSPIRIS 25MM), MINIMALLY INVASIVE, RIGHTTHORACOTOMY APPROACH, USING HEARTPORT TECHNIQUE with YOLA; Surgeon: MD Mert; Laterality: N/A; CERVICAL FUSION 2003 COLONOSCOPY 04/06/[address] [facility] [address] Wilhelm. Preparation of the colon was fair. Four non-bleeding colonicangioectasias. Treated with argon plasma coagulation. perianal skin tags.Diverticulosis in the sigmoid colon and descending colon. sm all internalhemorrhoids. ESOPHAGOGASTRODUODENOSCOPY 04/06/[address] [facility] [address] Wilhelm. Normal esophagus, normal stomach. Two non-bleeding angioectasiasin the duodenum. FEMORAL ARTERY - POPLITEAL ARTERY BYPASS GRAFT Right 2015 HYDROCELE EXCISION / REPAIR 2010 LUMBAR FUSION 2018 SPINAL CORD STIMULATOR IMPLANT 2018 TONSILLECTOMYAllergies: Patient has no known drug aller gies.OBJECTIVE:VITALS: blood pressure is 122/78 and his pulse is 82. His respiration is 16 andoxygen saturation is 96%.Physical ExamGeneral: AO x 3. In no apparent distress.Heart: +S1,S2. Regular rate and rhythm.Lungs: Clear to auscultation bilaterally.Incision: Right chest incision healed. Right groin incision well healed.Extremities: Warm and well perfused. No edema.Neuro: Grossly intactSignature: Jo-Ann Ferrell, MARYDate: May 18, 2020Time: 10:40 AM Name Value Range Interpretation Code Description Data Debbie rce(s) Supporting Document(s) ID Date Data Source [id number] 05/13/2020 09:30:13 PM EDT [facility]FORMATIONPatient MRN Name Date of Age Gend*PT [id number] Hiral Ferreira 1960 60 years M IPPT Location Admission Date/Time Visit ID Attending [id number] 05/02/20 0524 --- --- EPI ID CSN Admitting Provider [id number] Oneil Genao MD([id number]) [place] [address] OPERATIVE REPORT OPNAME: HIRAL FERREIRA Elke Smith#: [id number] #: [id number] ADMISSION DATE: 05/02/2020OB: 1960 SEX: M PT TYPE: I SURACCT #: [id number] CARE PHYSICIAN: ROB DIXONDATE OF OPERATION: 0 05/02/2020URGEON:Oneil Genao MD.GRAPHICS MANAGER:RAND Peralta.PREOPERATIVE DIAGNOSIS:Aortic valve stenosis and aortic regurgitation.POSTOPERATIVE DIAGNOSES:Aortic valve stenosis and aortic regurgitation.SURGICAL PROCEDURE:1. Minimally invasive aortic valve replacement with a 25 mm Inspiris 25valve.2. Percutaneous venous cannulation.BRIEF HISTORY:This is a 60-year-old male patient with symptoms of severe aortic valvestenosis, fatigue and shortness of breath. The patient underwent surgicalevaluation that we feel the patient is a good candidate for surgical aorticvalve replacement. The patient does have significant peripheral vasculardisease. Therefore, we decided to do a direct aortic cannulation withpercutaneous venous cannulation.SURGICAL TECHNIQUE:After informed consent was obtained, the patient was then brought into theoperating room and placed supine on the operating table. Generalendotracheal anesthesia was achieved. The patient had a Garfield-Ganzcatheter, radial arterial line placed. He was then sterilized and drapedin standard surgical fashion. We then performed a small thoracotomyincision in the second intercostal space and the right lung was deflated.Pericardium was then opened. Considering the patient has significantperipheral vascular disease; therefore, we decided to direct the cannula tothe ascending aorta. A 17-[place] [employer] cannula was then usedSeldinger technique with double pursestring suture to the distal ascendingaorta and then the femoral venous cannulation was performed with apercutaneous technique and the Seldinger technique, a percutaneousSeldinger te chnique. Then, we started cardiopulmonary bypass once the ACTlevel was adequate and then the ascending aorta was clamped. Antegradefollowed by direct perfusion to the coronary ostium was then performed witha del Nido formula. Then, the aortic valve was then resected. Annulus wasdebrided. Annulus was then sized and then we performed the sutures on theannulus and then I placed a total of 15 stitches on the annulus. Then, wepassed sutures through the valve sewing ring and I placed the valve intothe annulus and then all sutures were tied down with Cor-Knot and aortotomywas closed with a running 4-0 Prolene suture. After this was completed, jackie deaired the heart and opened the clamp on the ascending aorta. Jackie let heart to recover and the patient did recover to sinus rhythm andthen we weaned deaired the heart and weaned the heart off thecardiopulmonary bypass without difficulty. Transesophageal echocardiogramwas performed to confirm the valve is in good position and no paravalvularleak; therefore, we gave the protamine and decannulated the femoral veinand the ascending aorta. Then, careful hemostasis was performed. TheBlake drain was placed into the pericardium. Chest tube was placed in theright chest and then the ribs approximated with #2 Vicryl suture. Fasciawas closed with 2-0 Vicryl suture. Skin was closed with 4-0 Vicryl suture. The patient was hemodynamically stable upon finishing surgery.BRENNEN Ladd/NTS Job #: [id number] DOC #: [id number]: MD Marla eRyna MD Name Value Range Interpretation Code Description Data Debbie rce(s) Supporting Document(s) ID Date Data Source [id number] 05/13/2020 09:27:42 PM EDT [facility] INFORMATIONPatient MRN Name Date of Age Gend*PT [id number] Hiral Ferreira 1960 60 years M IPPT Location Admission Date/Time Visit ID Attending [id number] 05/02/20 0524 --- --- EPI ID CSN Admitting Provider [id number] Oneil Genao MD([id number]) Attestation signed by Oneil Genao MD at 05/13/2020 9:27 PMI saw and evaluated the patient and reviewed Hiral's note. I agree with thehistory, physical and medical decision makingSignature: THEODORA Laddate: May 13, 2020Time: 9:27 PM --Surgical Discharge SummaryHiral StallworthN: [id number] date: 05/02/2020dmitting Physician: THEODORA Laddischarge date and time:Discharge Orders Placed(From admission, onward) NoneDischarge Physician: Darian Sky Diagnosis: Nonrheumatic aortic valve insufficiencySecondary Diagnoses:Active Hospital Problems Diagnosis Date Noted Nonrheumatic aortic valve insufficiency 02/28/2020 Added automatically from request for surgery [id number] Hospital ProblemsNo resolved problems to display.Discharge Medications: See AVSIndication for Admission: Per Dr. Genao's Op Note on 05/02/2020, "BRIEF HISTORY:This is a 60-year-old male patient with symptoms of severe aortic valvestenosis, fatigue and shortness of breath. The patient underwent surgicalevaluation that we feel the patient is a good candidate for surgical aorticvalve replacement. The patient does have significant peripheral vasculardisease. Therefore, we decided to do a direct aortic cannulation withpercutaneous venous cannulation."Hospital Course & Complications:Patient was taken to the OR on 05/02/2020 for REPLACEMENT, AORTIC VALVE(INSPIRIS 25MM), MINIMALLY INVASIVE, RIGHT THORACOTOMY APPROACH, USING HEARTPORTTECHNIQUE with YOLA (N/A ) , the patient tolerated this procedure well and wastaken to the CVICU in stable condition. Patient was on a Cardene drip postoperatively and this drip was weaned. Patient was in a normal sinus rhythm.Patient was extubated on Op Day. [facility]. The chest tubes were removed on POD 2.Patient did well over the next few days, was diuresed, weaned off oxygen,ambulated, worked on incentive spirometry, had a BM, started on a BB, ASA,Statin.Plavix was discontinued by Dr. Genao, risk outweighs benefit. Patient had arecent GI Bleed that required a transfusion. Patient H/H on discharge was 7.6 /23.0. Can be restarted in a couple of months if needed.[facility] sent off to see if patient has another GI bleed, due to low H/H. Ifnegative patient is safe to discharge per Dr. Genao.CBC at 1 week follow up.The patient is now safe for discharge on 05/06/2020, and care plan was discussedwith covering attending provider. The patient is eager to go home today.Lab ResultsComponent Value Date WBC 7.4 05/06/2020 HGB 7.6 (L) 05/06/2020 HCT 23.0 (L) 05/06/2020 PLT 274 05/06/2020 CHOL 154 09/10/2018 TRIG 72 09/10/2018 HDL 57 09/10/2018 ALT 25 04/27/2020 AST 17 04/27/2020 NA 137 05/06/2020 K 3.8 05/06/2020 CL 103 05/06/2020 CREATININE 0.75 (L) 05/06/2020 BUN 19 05/06/2020 CO2 28 05/06/2020 INR 1.14 05/02/2020 HGBA1C 6.0 03/19/2021Past Medical History:Past Medical History:Diagnosis Date Abnormal carotid ultrasound 01/26/2020 Bilateral less then 50% stenosis Aortic stenosis Carotid Ultrasound 04/2018 bilateral less then 50% stenosis Coronary artery disease mild f/u by Dr. Villaseñor CTA abdomen and LE 01/19/2015 50-70% L iliac stenosis, 80-85% R iliac stenosis, occlusion of R poplitealartery Depression Diverticulitis Echocardiogram 12/06/2014 LV EF 55-60%, mild to moderate (CAROLA 1.3cm2, mean gradient 23mmHg) - [facility] Echocardiogram 01/08/2016 Normal LV size with [...] 60-65%, no ischemia, mild LVH, mild aortic stenosisSurgical Procedures:Procedure(s):REPLACEMENT, AORTIC VALVE (INSPIRIS 25MM), MINIMALLY INVASIVE, RIGHT THORACOTOMYAPPROACH, USING HEARTPORT TECHNIQUE with YOLA (N/A)Significant Diagnostic Studies: 2 view CXRFindings: The endotracheal tube, nasogastric tube, Garfield-Julia catheter, chesttubes have been removed. There is increased atelectasis bilaterally. There iselevation of right hemidiaphragm. There is a small right pneumothorax. I do notsee left pneumothorax. Free air is not seen beneath the diaphragms. Temporarypacemaker wires are noted. IMPRESSIONIMPRESSION: Small right pneumothorax. Increased atelectasis followingextubation. Mild elevation right hemidiaphragm. Close follow-up recommended.These findings were communicated via the departmental critical result protocol.Treatments: See AVSDischarge Exam:Vitals: Temp: [98.2 F-99.2 F] 98.5 FHeart Rate: [88-103] 89Resp: [14-18] 18BP: (116-150)/(65-79) 141/71Pleasant, comfortable, not in acute distress.Awake, alert, oriented times 3.Moves all extremities.General appearance: alert, appears stated age and cooperativeLungs: Clear to auscultation bilaterally.Heart: regular rate and rhythmAbdomen: Soft, nontender, bowel sounds present.Extremities: No edema.Wound/Incision: clean, dry, no drainage and healingAtrial and ventricular wires removed with no issueDischarged Condition:stableDisposition: Home or Self CareSignature: Hiral Beckwith PADate: May 06, 2020Time: 11:55 AM Name Value Range Interpretation Code Description Data Debbie rce(s) Supporting Document(s) ID Date Data Source [id number] 05/06/2020 12:42:45 PM EDT [facility] Name Value Range Interpretation Code Description Data Debbie rce(s) Supporting Document(s) STOOL OCCULT BLOOD (NEG) [facility] ID Date Data Source [id number] 05/06/2020 03:34:16 AM EDT [facility] Name Value Range Interpretation Code Description Data Debbie rce(s) Supporting Document(s) MAGNESIUM 2.5 mg/dL (1.7-2.4) H [facility] ID Date Data Source [id number] 05/06/2020 03:34:16 AM EDT [facility] Name Value Range Interpretation Code Description Data Debbie rce(s) Supporting Document(s) SODIUM 137 mmol/L (136-145) [facility] POTASSIUM 3.8 mmol/L (3.6-5.2) [facility] CHLORIDE 103 mmol/L (100-108) [facility] CO2 28 mmol/L (22-31) [facility] ANION GAP 6 mmol/L (7-16) L [facility] UREA NITROGEN 19 mg/dL (7-24) [facility] CREATININE 0.75 mg/dL (0.80-1.30) L [facility] BUN/CREAT RATIO 25.3 RATIO (10.0-20.0) H [facility] GLUCOSE 91 mg/dL (70-99) [facility] CALCIUM 8.1 mg/dL (8.4-10.2) L [facility] GFR >60 ml/min/1.73m2 (>59) [facility] GFR ( AMER) >60 ml/min/1.73m2 (>59) [facility] GFR INTERPRETATION [facility] --NORMAL KIDNEY FUNCTION OR MILD DISEASE - GFR >OR= 60CHRONIC KIDNEY DISEASE - GFR 15 - 59RENAL FAILURE - GFR <15 Est. GFR calculation based on the MDRDstudy equation, which assumes a steadystate for creatinine. Est. GFR should notbe used for medication dosing. ID Date Data Source [id number] 05/06/2020 03:10:40 AM EDT [facility] Name Value Range Interpretation Code Description Data Debbie rce(s) Supporting Document(s) WBC 7.4 10*3/uL (4.1-11.0) [facility] RBC 3.03 10*6/uL (4.60-6.10) L [facility] HGB 7.6 g/dL (13.5-18.0) L [facility] HCT 23.0 % (41.0-53.0) L [facility] MCV 76.1 fL (80.0-95.0) L [facility] MCH 25.1 pg (27.0-32.0) L [facility] MCHC 33.1 g/dL (32.0-36.0) [facility] RDW 19.2 % (10.5-14.5) H [facility] PLT 274 10*3/uL (150-450) [facility] MPV 7.0 fL (7.1-10.7) L [facility] ID Date Data Source [id number] 05/05/2020 01:29:39 PM EDT [facility] Name Value Range Interpretation Code Description Data Debbie rce(s) Supporting Document(s) POC NOVA GLU 95 mg/dL (70-99) [facility] BY [facility] ID Date Data Source [id number] 05/05/2020 08:33:12 AM EDT [facility] Name Value Range Interpretation Code Description Data Debbie rce(s) Supporting Document(s) POC NOVA GLU 75 mg/dL (70-99) [facility] ID Date Data Source [id number] 05/05/2020 07:27:48 AM EDT [facility] Name Value Range Interpretation Code Description Data Debbie rce(s) Supporting Document(s) HCT 23.2 % (41.0-53.0) L [facility] ID Date Data Source [id number] 05/05/2020 07:27:48 AM EDT [facility] Name Value Range Interpretation Code Description Data Debbie rce(s) Supporting Document(s) HGB 7.8 g/dL (13.5-18.0) L [facility] ID Date Data Source [id number] 05/05/2020 03:57:22 AM EDT [facility] Name Value Range Interpretation Code Description Data Debbie rce(s) Supporting Document(s) WBC 7.4 10*3/uL (4.1-11.0) [facility] RBC 2.83 10*6/uL (4.60-6.10) L [facility] HGB 7.1 g/dL (13.5-18.0) L [facility] HCT 21.5 % (41.0-53.0) L [facility] MCV 75.9 fL (80.0-95.0) L [facility] MCH 25.0 pg (27.0-32.0) L [facility] MCHC 33.0 g/dL (32.0-36.0) [facility] RDW 19.0 % (10.5-14.5) H [facility] PLT 212 10*3/uL (150-450) [facility] MPV 7.0 fL (7.1-10.7) L [facility] ID Date Data Source [id number] 05/05/2020 03:54:56 AM EDT [facility] Name Value Range Interpretation Code Description Data Debbie rce(s) Supporting Document(s) MAGNESIUM 2.5 mg/dL (1.7-2.4) H [facility] ID Date Data Source [id number] 05/05/2020 03:54:56 AM EDT [facility] Name Value Range Interpretation Code Description Data Debbie rce(s) Supporting Document(s) SODIUM 135 mmol/L (136-145) L [facility] POTASSIUM 4.0 mmol/L (3.6-5.2) [facility] CHLORIDE 98 mmol/L (100-108) L [facility] CO2 29 mmol/L (22-31) [facility] ANION GAP 8 mmol/L (7-16) [facility] UREA NITROGEN 26 mg/dL (7-24) H [facility] CREATININE 0.98 mg/dL (0.80-1.30) [facility] BUN/CREAT RATIO 26.5 RATIO (10.0-20.0) [facility] GLUCOSE 86 mg/dL (70-99) [facility] CALCIUM 7.8 mg/dL (8.4-10.2) L [facility] GFR >60 ml/min/1.73m2 (>59) [facility] GFR ( AMER) >60 ml/min/1.73m2 (>59) [facility] GFR INTERPRETATION [facility] --NORMAL KIDNEY FUNCTION OR MILD DISEASE - GFR >OR= 60CHRONIC KIDNEY DISEASE - GFR 15 - 59RENAL FAILURE - GFR <15 Est. GFR calculation based on the MDRDstudy equation, which assumes a steadystate for creatinine. Est. GFR should notbe used for medication dosing. ID Date Data Source [id number] 05/04/2020 05:10:52 PM EDT [facility] [place] Name Value Range Interpretation Code Description Data Debbie rce(s) Supporting Document(s) POC NOVA GLU 76 mg/dL (70-99) [facility] ID Date Data Source [id number] 05/04/2020 10:36:35 AM EDT [address] [address]Dvhbgxp Name: NICOLÁS GROVERDOB: 1960ex: MOrdering Provider: HIRAL Light Prov: HIRAL Finley Provider: Procedure Performed: XR CHEST PA AND LATERALExam Date: 05/04/2020 10:32MRN: [id number] Number: [id number] Class: InpatientAccount #: [id number] for Exam: s/p CT removalTechnique: PA and lateral views obtained.Comparison: May 02, 2020Findings: The endotracheal tube, nasogastric tube, Garfield-Julia catheter, chest tubes have been removed. There is increased atelectasis bilaterally. There is elevation of right hemidiaphragm. There is a small right pneumothorax. I do not see left pneumothorax. Free air is not seen beneath the diaphragms. Temporary pacemaker wires are noted.IMPRESSION: Small right pneumothorax. Increased atelectasis following extubation. Mild elevation right hemidiaphragm. Close follow-up recommended. These findings were communicated via the departmental critical result protocol.Report electronically signed by: DANE DAS On 05/04/2020 10:36 AMWorkstation ID: [id number] Name Value Range Interpretation Code Description Data Debbie rce(s) Supporting Document(s) ID Date Data Source [id number] 05/04/2020 09:42:41 AM EDT [facility] Name Value Range Interpretation Code Description Data Debbie rce(s) Supporting Document(s) POC NOVA GLU 103 mg/dL (70-99) [facility] [place] [facility] ID Date Data Source [id number] 05/04/2020 06:26:43 AM EDT [facility] Name Value Range Interpretation Code Description Data Debbie rce(s) Supporting Document(s) EKG [facility] WRYKQo2yEaJQSoYjs5RvPsIzOMLbDU3beob0F9T7yWNqZ2TcmWJcu2vuR2JvZ0GtRWBhBXHCKS3GpXIx jb2 [file] Yo+wlRF8b0YTFVG+0IwRztgPnjECGvtBNEZIYz [file] g2z92Tl0272l100K9jr373PcAjn04G+Y1DZ1HvdGVh 3yXXEgnuzaUWAPeO9BssFfpLxXn2imChsr71JsamBkB7GYVowflO6u5j8THQXLaKDOHyVdL84KlQ+C4x Nadeem+nbyWT810+KPI724ZF7onqtOY1+a5HA056FbaiZpE+/YUuSC+u7MX5L/keLAvfO+M7/WkHF6YQ4w0 UpXP6ok27ZYjbF67rH/kzN+wIdjbDJtUbCjU05NjbF v+kag8b1ckiQ6pJwY44rOyxuF39xosun0Ha4gjbCSocXI3Zj4h7uSzsL3ScvivFMAdkEiRfpfhrSIxYQ RtxGfqfiXlePYykPhFGewV2iXxUDlG23P2iUIE8Gk+y2U+A2Z9m+uNGwChEDA7sQpLP3GF/wVjy4V5L/ prHEhjOcV5GqgEI/Dxu1N9sNiCLM+EU+YJueSTmv+C o2ku3CfJY+/J6M1gFzyyAX+96zx71/J5yVrtu15wkL8Hdc5h5t+3r8LT/JfbNf/Bird/Ssl/g3UfZs+y3 a/5Q6qn38fLN+HCaW0lc/iYZ3zZs60N/+y9Oh1raLtUifgpvTSYmFKb7vBw1ZR5/EZRi9JB/Q+MvN/MZ 9CjnVHFr7/fmod0nbi+QPM1/iX/kSVaEOMNMqqzhlj 1d8tNmbBUwIjx5j/bIp37nAU0PN3ZUM8zVB5E7cFmZ68ScJ24Vrmhnglg3k9nb90mIoa9d5lBThr7Ju0 Jc4zpiimakMwOQ3lQ/8S71Gy/yWXnD4t5Dkw9rwquJox8medlRe0ddDA8F1ne6uU0/iXdzLruMtwvvlD 5P6dPL+uyR26ga7V+6kRryHMcy60qw37r2/nJN/elr LD6Ph6MyRi/mPh0fw6ivQtSsv/TL9NXxrBEOgh6RW9DoElqoO2VT1qTwFg/hMp8hn+yFV+FyIo3g5lYp Twsq2G7q+rJX4al/aUmWuCYlAGXpYMF0VztzS+MuFUe9ua++fSkFH2g+Yj4D3/TR+Mst+bi34E6St3a+ [place]/5HEs3xJKe+jLKfpyilxOkcvR+wGX+CdaE1ToRw [file] AwMDAgbiAKMDAwMDAwMTYwOSAwMDAwMCBuIAowMDAw AFIuQwI4JGVySCOgEY5cFxVpQSLtCPY6QINuOKBpKZZkxtLMPZOmGDOuDBD7NkCdTXHiGARaNWtqGMWs CEP7YdEoFTGhKURwTR0oGfMpVMDuCDv6RbVkMYBzYGHleqSEJPBhVBYoTOL6GuGbZEDxSQUyLQmsHNTz BPXgWLNjZFL9JLU6JWWdRuLxZCbbSSAHHCuBQ0Gcbp IyCxyFR6ruVq1bGxMxPSDRT8Eyu5DyGQCbYVRVSd6+MjP7MOG4hUIfLiznDDQ9VmtUGOPWP5Y= ID Date Data Source [id number] 05/04/2020 03:27:07 AM EDT [facility] Name Value Range Interpretation Code Description Data Debbie rce(s) Supporting Document(s) MAGNESIUM 2.9 mg/dL (1.7-2.4) H [facility] ID Date Data Source [id number] 05/04/2020 03:27:07 AM EDT [facility] Name Value Range Interpretation Code Description Data Debbie rce(s) Supporting Document(s) SODIUM 135 mmol/L (136-145) L [facility] POTASSIUM 3.9 mmol/L (3.6-5.2) [facility] CHLORIDE 100 mmol/L (100-108) [facility] CO2 27 mmol/L (22-31) [facility] ANION GAP 8 mmol/L (7-16) [facility] UREA NITROGEN 29 mg/dL (7-24) H [facility] CREATININE 1.26 mg/dL (0.80-1.30) [facility] BUN/CREAT RATIO 23.0 RATIO (10.0-20.0) H [facility] GLUCOSE 107 mg/dL (70-99) H [facility] CALCIUM 8.3 mg/dL (8.4-10.2) L [facility] GFR 58 ml/min/1.73m2 (>59) L [facility] GFR ( AMER) >60 ml/min/1.73m2 (>59) [facility] GFR INTERPRETATION [facility] --NORMAL KIDNEY FUNCTION OR MILD DISEASE - GFR >OR= 60CHRONIC KIDNEY DISEASE - GFR 15 - 59RENAL FAILURE - GFR <15 Est. GFR calculation based on the MDRDstudy equation, which assumes a steadystate for creatinine. Est. GFR should notbe used for medication dosing. ID Date Data Source [id number] 05/04/2020 02:58:40 AM EDT [facility] Name Value Range Interpretation Code Description Data Debbie rce(s) Supporting Document(s) WBC 11.2 10*3/uL (4.1-11.0) H [facility] RBC 3.18 10*6/uL (4.60-6.10) L [facility] HGB 8.0 g/dL (13.5-18.0) L [facility] HCT 24.2 % (41.0-53.0) L [facility] MCV 75.9 fL (80.0-95.0) L [facility] MCH 25.3 pg (27.0-32.0) L [facility] MCHC 33.3 g/dL (32.0-36.0) [facility] RDW 19.6 % (10.5-14.5) H [facility] PLT 219 10*3/uL (150-450) [facility] MPV 6.8 fL (7.1-10.7) L [facility] ID Date Data Source [id number] 05/03/2020 06:30:48 PM EDT [facility] Name Value Range Interpretation Code Description Data Debbie rce(s) Supporting Document(s) POC NOVA GLU 135 mg/dL (70-99) H [facility] [place] [facility] ID Date Data Source [id number] 05/03/2020 11:29:43 AM EDT [facility] [place] Name Value Range Interpretation Code Description Data Debbie rce(s) Supporting Document(s) POC NOVA GLU 160 mg/dL (70-99) H [facility] [place] [facility] ID Date Data Source [id number] 05/03/2020 07:26:38 AM EDT [facility] Name Value Range Interpretation Code Description Data Debbie rce(s) Supporting Document(s) POC NOVA GLU 197 mg/dL (70-99) H [facility] [place] [facility] ID Date Data Source [id number] 05/03/2020 02:27:29 AM EDT [facility] Name Value Range Interpretation Code Description Data Debbie rce(s) Supporting Document(s) POC NOVA GLU 166 mg/dL (70-99) H [facility] [place] [facility] ID Date Data Source [id number] 05/03/2020 03:11:40 AM EDT [facility] Name Value Range Interpretation Code Description Data Debbie rce(s) Supporting Document(s) MAGNESIUM 2.6 mg/dL (1.7-2.4) H [facility] ID Date Data Source [id number] 05/03/2020 03:11:40 AM EDT [facility] Name Value Range Interpretation Code Description Data Debbie rce(s) Supporting Document(s) SODIUM 137 mmol/L (136-145) [facility] POTASSIUM 4.2 mmol/L (3.6-5.2) [facility] CHLORIDE 104 mmol/L (100-108) [facility] CO2 25 mmol/L (22-31) [facility] ANION GAP 8 mmol/L (7-16) [facility] UREA NITROGEN 18 mg/dL (7-24) [facility] CREATININE 0.91 mg/dL (0.80-1.30) [facility] BUN/CREAT RATIO 19.8 RATIO (10.0-20.0) [facility] GLUCOSE 164 mg/dL (70-99) H [facility] CALCIUM 8.3 mg/dL (8.4-10.2) L [facility] GFR >60 ml/min/1.73m2 (>59) [facility] GFR ( AMER) >60 ml/min/1.73m2 (>59) [facility] GFR INTERPRETATION [facility] --NORMAL KIDNEY FUNCTION OR MILD DISEASE - GFR >OR= 60CHRONIC KIDNEY DISEASE - GFR 15 - 59RENAL FAILURE - GFR <15 Est. GFR calculation based on the MDRDstudy equation, which assumes a steadystate for creatinine. Est. GFR should notbe used for medication dosing. ID Date Data Source [id number] 05/03/2020 03:01:38 AM EDT [facility] Name Value Range Interpretation Code Description Data Debbie rce(s) Supporting Document(s) CALCIUM IONIZED 4.92 mg/dL (4.64-5.28) [facility] IONIZED CALCIUM NORMALIZED TO PH 7.40 AN D 37 DEGREES C. ID Date Data Source [id number] 05/03/2020 02:46:00 AM EDT [facility] Name Value Range Interpretation Code Description Data Debbie rce(s) Supporting Document(s) WBC 13.1 10*3/uL (4.1-11.0) H [facility] RBC 3.72 10*6/uL (4.60-6.10) L [facility] HGB 9.3 g/dL (13.5-18.0) L [facility] HCT 28.1 % (41.0-53.0) L [facility] MCV 75.7 fL (80.0-95.0) L [facility] MCH 25.0 pg (27.0-32.0) L [facility] MCHC 33.1 g/dL (32.0-36.0) [facility] RDW 19.7 % (10.5-14.5) H [facility] PLT 331 10*3/uL (150-450) [facility] MPV 6.6 fL (7.1-10.7) L [facility] ID Date Data Source [id number] 05/03/2020 12:19:27 AM EDT [facility] Name Value Range Interpretation Code Description Data Debbie rce(s) Supporting Document(s) POC NOVA GLU 160 mg/dL (70-99) H [facility] ID Date Data Source [id number] 05/02/2020 11:17:34 PM EDT [facility] Name Value Range Interpretation Code Description Data Debbie rce(s) Supporting Document(s) POTASSIUM 4.9 mmol/L (3.6-5.2) [facility] ID Date Data Source [id number] 05/02/2020 10:41:02 PM EDT [facility] Name Value Range Interpretation Code Description Data Debbie rce(s) Supporting Document(s) WBC 10.0 10*3/uL (4.1-11.0) [facility] RBC 3.68 10*6/uL (4.60-6.10) L [facility] HGB 9.2 g/dL (13.5-18.0) L [facility] HCT 28.3 % (41.0-53.0) L [facility] MCV 76.9 fL (80.0-95.0) L [facility] MCH 25.1 pg (27.0-32.0) L [facility] MCHC 32.6 g/dL (32.0-36.0) [facility] RDW 19.6 % (10.5-14.5) H [facility] PLT 319 10*3/uL (150-450) [facility] MPV 6.9 fL (7.1-10.7) L [facility] ID Date Data Source [id number] 05/02/2020 10:08:54 PM EDT [facility] Name Value Range Interpretation Code Description Data Dbebie rce(s) Supporting Document(s) POC NOVA GLU 153 mg/dL (70-99) H [facility] [place] [facility] ID Date Data Source [id number] 05/02/2020 08:21:53 PM EDT [facility] Name Value Range Interpretation Code Description Data Debbie rce(s) Supporting Document(s) POC NOVA GLU 158 mg/dL (70-99) H [facility] [place] [facility] ID Date Data Source [id number] 05/02/2020 08:10:20 PM EDT [facility] Name Value Range Interpretation Code Description Data Debbie rce(s) Supporting Document(s) POC SOURCE [facility] PUNCTURE SITE [facility] O2 THERAPY [facility] POC FIO2 45 [facility] PAUL TEST [facility] MODE [facility] PEEP/MAP 6 CM H2O [facility] PRESSURE SUPPORT 8 CM H2O [facility] SP RATE 10 BMP [facility] POC PH 7.38 pH (7.35-7.45) [facility] POC PCO2 42.7 MMHG (32.0-48.0) [facility] POC PO2 81 MMHG (83-108) L [facility] POC SAT O2 96 % (95-99) [facility] POC BASE EXCESS 0 MMOL/L (0-3) [facility] P[facility] HCO3 25.1 MMOL/L (21.0-29.0) [facility] POC TOTAL CO2 26 MMOL/L (23.0-32.0) [facility] ID Date Data Source [id number] 05/02/2020 07:19:47 PM EDT [facility] Name Value Range Interpretation Code Description Data Debbie rce(s) Supporting Document(s) POC NOVA GLU 151 mg/dL (70-99) H [facility] ID Date Data Source [id number] 05/02/2020 05:09:26 PM EDT [facility] Name Value Range Interpretation Code Description Data Debbie rce(s) Supporting Document(s) POC NOVA GLU 154 mg/dL (70-99) H [facility] ID Date Data Source [id number] 05/02/2020 06:46:17 PM EDT [facility] Name Value Range Interpretation Code Description Data Debbie rce(s) Supporting Document(s) POTASSIUM 4.7 mmol/L (3.6-5.2) [facility] ID Date Data Source [id number] 05/02/2020 03:19:45 PM EDT [facility] Name Value Range Interpretation Code Description Data Debbie rce(s) Supporting Document(s) POC NOVA GLU 142 mg/dL (70-99) H [facility] ID Date Data Source [id number] 05/04/2020 08:55:23 AM EDT [address] [address]Yyp# Surgical Pathology ReportPatient Name: HIRAL FERREIRA: 1960Accession #:[id number](s) ReceivedA: Aortic valveClinical Diagnosis and HistoryAortic stenosisDIAGNOSISAORTIC VALVE, EXCISION: FIBROCALCIFIC DEGENERATION Gross DescriptionReceived in formalin labeled "aortic valve leaflets" are three infante- whiteto sheth-yellow irregular fragments of valvular tissue ranging from 2.2 x1.5 x 0.4 cm to 2.5 x 2.2 x 0.6 cm. Each displays areas of yellowlobulated focally hemorrhagic calcifications measuring up to 1.5 cm. Thespecimen is serially sectioned and financial foundations representative sections are submittedas A1 following decalcification. jgllmr/skl Reported: 05/04/2020Electronically Signed Out By Jamari Carrasco MD [facility] [place] [address] 21727sdtBzgmvtbnr component performed at [facility], [facility]opathology, [address] [place] [address], [phone].Reported at [facility], [address] [place] [address], [phone]. This report may includeimmunohistochemical or in-situ hybridization results. Testing wasdeveloped and the performance characteristics determined by [employer] [employer] as required by CLIA '88. The FDA hasdetermined that approval for specific use is not necessary for clinicaluse. The quality of Hematoxylin and Eosin stains and as applicable, forall immunohistochemical and/or special stains, including positive andnegative controls, were reviewed and considered appropriate.ICD codes I35.0CPT codesA: 89548F, 28323T Name Value Range Interpretation Code Description Data Debbie rce(s) Supporting Document(s) ID Date Data Source [id number] 05/02/2020 01:37:45 PM EDT [facility] Name Value Range Interpretation Code Description Data Debbie rce(s) Supporting Document(s) POC NOVA GLU 142 mg/dL (70-99) H [facility] ID Date Data Source [id number] 05/02/2020 01:19:02 PM EDT [address] [place], [place] [address]Xlzihos Name: HIRAL ZAVALATRIOB: 1960ex: MOrdering Provider: ROGELIO Dennis FORDAuthorizing Prov: ROGELIO Dennis FORDReferring Provider: Procedure Performed: XR CHEST PORTABLEExam Date: 05/02/2020 13:15MRN: [id number] Number: [id number] Class: InpatientAccount #: [id number] for Exam: Evaluate for Garfield Julia catheter placement and/or endotracheal tubeTechnique: Single AP view obtained.Comparison: NoneFindings: The endotracheal tube and nasogastric tubes are in satisfactory position.Garfield-Julia catheter is in satisfactory position.Right-sided chest tubes are present. There is no evidence of pneumothorax.IMPRESSION: Lines and tubes are in satisfactory position.Report electronically signed by: FAUSTO DICKINSON On 05/02/2020 1:19 PMWorkstation ID: [id number] Name Value Range Interpretation Code Description Data Debbie rce(s) Supporting Document(s) ID Date Data Source [id number] 05/02/2020 01:25:49 PM EDT [facility] Name Value Range Interpretation Code Description Data Debbie rce(s) Supporting Document(s) POC SOURCE [facility] PUNCTURE SITE [facility] O2 THERAPY [facility] POC FIO2 80 [facility] PAUL TEST [facility] MODE [facility] TIDAL VOLUME 500 mL [facility] RATE 16 BPM [facility] PEEP/MAP 10 CM H2O [facility] PRESSURE SUPPORT 15 CM H2O [facility] SP RATE 0 BMP [facility] P[facility] PH 7.31 pH (7.35-7.45) L [facility] POC PCO2 53.5 MMHG (32.0-48.0) H [facility] POC PO2 88 MMHG (83-108) [facility] POC SAT O2 96 % (95-99) [facility] POC BASE EXCESS 0 MMOL/L (0-3) [facility] P[facility] HCO3 26.7 MMOL/L (21.0-29.0) [facility] POC TOTAL CO2 28 MMOL/L (23.0-32.0) [facility] ID Date Data Source [id number] 05/02/2020 01:25:49 PM EDT [facility] Name Value Range Interpretation Code Description Data Debbie rce(s) Supporting Document(s) POC SOURCE [facility] CP BYPASS [facility] POC MIX ELLIS PO2 40 mm[Hg] (35-45) [facility] P[facility] MIX ELLIS SO2 68 % (60-80) [facility] P[facility] HCT 30 % (41.0-53.0) L [facility] ID Date Data Source [id number] 05/02/2020 01:14:28 PM EDT [facility] Name Value Range Interpretation Code Description Data Debbie rce(s) Supporting Document(s) EKG [facility] EYJHZt0dHwXBAsAvx1GkFsMlZRZxXE6bzxx1M1A7hNVvY5IbtLPdi9leW5IbL4HeUWZgQGMDXX3WnURp jb2 [file] [employer]/S2z7yD8/8Al0o7ndAf3KxH6vnCrQmwevkS/1gaI3Ndqx5RN87k9CqIWYWH9BcsL9WFw75ygS3P5a9 [file] +uuMzT+m3Ftf3/2upDumh78taIw3+me1i++N7n/Jose Alfredo 5ukXFRPf+u2LKHkUB6tuKi+tKMu/007xh0hYl5Mi41gNOzfHMynlq/y5YIszcf/fneEqN/BVxOkN/P6+ 4+pWh2sV6Sr0BQIcSV0wR6+v4/MR+CrDaG/gq+Inqmdmxjlp8U20bokIchEkY/4pfQa+8vXLCHwVcQJf AH9Oo0BgUYAk8+36WbOWlyJhMWbU1dP5Q61dqURbPq yV/O134H2NpuKzLW4h+BYeruj4Qz1zJ4YciMtCLbCZvc/sj2Wl0Iwp0/yBzHtq0F3Gy/YGvkq+IX8DH9 286SrDwkaYOt2KCdIfLm6JeYn+39H4M23riXX59awShwcv2VZadFxGR5tj8nuZ3ud7IlhobkA3kjpQSR LOIaH3bf5oBACT+OjPiu/r+OrmOZG/gq/gL/AX+Bv8 Gcs6cCF84gQOfvhJtR+bKgabbN4efwYlmRtt/Ax//FxOEF1GE+/1evCOasElDo7Ub+Av5O/kvrDDh0Rr KNfbm+GD/E/exwT45uywUqo7SzlxChRjEeA/2Sp1SZ7CI66LEqPRQL+CUkoxFwwMtF9t2ASPM8z3xv0Q Nka7W1GRV8qZtylGj9Dv+ue5cNCpRPuSwDSBj1lC5P LyAfvVsLLnjLRfRZyhFWci/gRfW+DtED3fvDl6EpKGi7NQ6gdUXzx510oF3FD57y1nj8E0eSM+ahnWCt m9uVouH02Z4qagwd2qgLJ+eHjMr/bAaR3eFeOI1aqOhT9g96Q1+Wy9d242JY0chYja1dNT1hsA15w0tr /6Jb+JK7bKF4QCeVAxrZ9Ph6J/EX+Gw9pr90JoK/wF /kY+G/nY++7y6QtAr/efzsBXEb/XfOQ3+k1fDgJi8LKv+XW+W8gHX8squG/Bn+Lg9sql2q1F2su9i1I5 ev8wnlG+zb+lr48ShpKD8BrT2I3L+JjyPBAD1ukXliCqKKyC+BN8fF/xfpvqn7L3ps7rWE8Fp1FjyGVv Nishant/w1nhGTaMrNwL3fx/mQHsH+jVZ3v76eqLke0J/D3 [file] wV+psychiatric np+pMC9sOLd318/+OAgglfiPvUNL16ruu67NcBx9nu7f/4FTGS9yQPMZ9VP+AP5D/OX9MVZOm3PLm [file] MpRQSQHTECJssSUTEO1UXjEssd0TKJK5uXiFgxLBwu MirfNdIPizJTmgObFrkCPwfsQusnulvUtgJxvbKdcUoq6FubChS7LtVNfNvPtQrnEZiap0WbBRpNlMSK OKMLBKRNZRVIEdDAINqBcCCNDqWjMToUwEdPKqahU7RvyaCTJZNgrWDAEbSLTJJEiF5GMXL5YTGUVPYT UEFNcUISTSVBCO5dzIOYkgKkyFuswEPqGkZ0SQNSgN IUULAjDivMBBqBWlQFIz1yc8wLk4gqgaQlAztrSeXgxkPT0W0qlRcTWYP3LnWodUXSvNztEGGzNnCFIR GRpCMFFZYDUOoBSZ6OWzMRL5xXmXOD5a9pVwG5a7FQ3Z9e6JdPKLT0WoMofC7OkOpeH5DhUoDSDNUDaA TBEJIaNSnQYPRUNkHWQWsDhMPOAwFvDhZFjXMI3M6f LhV8KfxbBULmWlcD6A0qFzN3FyauZGToStzY9Z2cKzB4EkikWRAdOaiS1O6vCgM5TfohRXIvMeiJ7X0a OsB2WvnoYJXtSqyD4V8bWcB5L+PmMPaPITGntE8+PXcT1hGSp1tWQ/n5DJQauJmV0evl6i6FXRodpsc8 kTIlF7YPMDUF9eqv2OvQaIFoJ1DPNTWP4ina2CyIbJ UxK3DRIPEP9pfj3AuUfDJhR8RXAETV2laz4MjAdPJkY8PHFJOK0ckl1VkBkNAcE9UEANNL0ogt9QuEnY XfC0ZMLGAR3fyy2YdPePAwA1SIZAMC6zog4IqMaCLjI5REZXTM9olc0OcQoHRyT1EFZCFD9yux7XnOxN RmO6WCEHEY0pgt4IkKhEIeQ6ZHYQHPfd9jvM3J16jU shlAheeSuTjH8Cq0old8cKtCPzTG5KFfRjXwkWn4tFjPV4QT1zE7NweWNOM7rTyTYQL6kNhHYHO8cJiZ SQY1aIbWEWN9rUpYJMY1GuLj0Mbgn2N8pc8tamnshknAndf3RklGzRfGnjCRBTzCPSZ3tCbLDOV2gHmI WSX0gIgZQXP6as34sLwlvrHt1VgqoiDx4JaedvTw3X aaguKx7YtqixOl8ZhdnbLr4TofvqYy3Sck5cJw5Vfb1yEx7Fso7mBe2Tsl6dHg3Ywl7lZo7MRWW1LfJO 3DdJZ2NqJy1Zjoo9H7ko0vjcxyubh3nxx7dvqYmCdBlmROBZrENHSrPNMi7ZNMm1CyJv4GwJx6FdIf2H ht6e0breaLojSdHFrtQcFCaFWxibPu5NfEXy43r635 tm89h371ie70h0Ez7Wp8cEhzzil/HJ+ZG4Hs6Yy5tBw7EGs5xP13B0f8avUKZgAvjNE4ceSmBABz7AnS RNOSEuECNCtZlEYITsQbVkbQzSLMluPsPBCaxXePFSHyUiyMD2uFqzNWOjQjgZN4gaAaRKCu9N+YVMMG SGIVMMmWPIJENmGTLNkHmGTDRkpiFTDZlryGRDZhsy 2BG9jnx2PGOtLj8Rq7dzC3OoOj9AdLwTIQJuWqR7Yox1+0j22v2NtcrRbeUb72aRQ5+YhTVVTJ0ZFoJU MLLfSyEHXjDt8ywSQBBYDXqJYJlKrunGXZ4KuMvtDyHHQz0c7nrVOKpZU0c3ayNx1cVC3WkcNbntBAHp 5MITF25xHV5xjGt9SQprSC1UESR5HEpUDxfOzmc0WZ eUEyPZlmfzCkwjA4T7KqvUMRfvwvzOCpbPXRrk0xf5SqmWZAqz2pvFTugTXT5a4fg8NxtSDXMeWfoLZj pQsEOROhTsUKQOBTsUqUPBDkW+r2aTPi6w4TgLIuIaOSRXJYcZnRQVGwWdUZNAfNhV3AWzNhT9FLeIyN 6U5oPyT0H2eDsd35a8u42Q38hLQ+KEmWCmMFOYKcwU MeHaJtRtDtCkAlXPcvvOStMs14cljWLpJtBqve5CL5ZdElLnIxQqAcSwEZPeDlOz++bew0Cxu0brNM5a r2srPpiyk4tZwudXYrUxmHdRwtwYwyIurgvPucxBkyAoajrarjqE5jSTzuBz/nUyu3rzYoz+nab8+fag r+kPol+fOkI5HPR4DPkngn4za3m60bnen5F4et/fPD /53dev4s/rsSS51Owjo+KAk71btupreli0jqf0/hpw1gEY6u05X9cKRWXgR7LAtZ7HdgfiTHHZR27eAU 03AA11kyBQ0+YGg4Bqn1liC+9eub8CZHMp0sSz3mp5Q4EL7eyDX1+wzBZi/kUsYlM5m4QbTIdpzeUm8S FTibg59PC12r5412luj1fXn16/Dq/Pfr29/Lp+LS7P fz+7+DJ8/X1FWu88ovu9KrvmtM6iwREp8HJ5uKpe3kzp+jiko4jZG3m0s3IRp+H0z6/fLq7u/9SBp2ls 1Nlb0RJ263S7X+zL7c12aOsj95M4B3U8txL36vjRUckD1g9R87PmJ7B53i1dl93/qyt+683/aBbrd2ny 76kHG2Gj3tuU64+dcjyJ2m/eGH+3/K46Ny74/G7408 bj6GzS4fak9tq/XX+ey1+at57aMnnA6gpDh3IJ86JQnWojpcF3Z08rkpPJ3dcF242uBpowATrOTgpgdr dudrx/cp5axm284Ha1nYgba/wNo3M24da+o05f6yQ74JY0fN5se9yAXygq8e/w/P2+ljbevQc0/Hn78f snR++a4jzqH6gvegOnj/44P/r6mHm5JV+2cX58eM6s 057Uy8vos+regulatory compliance engineer/Q3eue5NeyWWEIhs+jjei0dkf/jpTO8V1n72bqSCKu/qq45zl4Dd472l79/QnjRLvH1 25sPfr4/fvf+6udhoaEh0fphgNy1qi4jmdNMs/aTlgyndNCVhxyWpL6esf+YqjLkanJ3PqokujJabJkz 9l35FX52m26baLwsp4xWgeJ9PvVjof4//Px+fWxdO2 5f3oXS2mf/DponTN3SVE5px4SlSKDaSfPnRY9aguraZaNwSV0gfcb0U7OvuDxeCZgSLIDfKq9zbSYkNF 8BBHX3DYlfYGBjDTNpI0GziS7cY35qtXGsEmxqFLGJBI9TYHJfnyEjGfWqJDH+RiHaAM4dyqahRJGja2 JbIXvdSQaoMVBrB6V6dGfeNWAjV8PqaT16PEOgR8Sl wsF5TLS6DAYmJmXdJALhmDUiJaWfMOU+UrCiPH0cuferZFAai1AxIZnyOYX6kO1xKXrNECRDDGjEBXdd KeD6f07zgzZWEADzTZDgUY6NxcBuiQvvqtFkaDEuKLR2UhYfOFBoXsWpVoX6DOMPKNPjYHMuFONpELUh Y2CkcPpmPBcWJKJSCTmMPYqoLzWvf1J5DHFradXDQm 1UFZSbGJ9UC5dLEXsfCVGnLQx0Qkk7TQQfF7EyquTbjEEhOMRJBMkaZrmyPXTgcK6osSbxN8FrWPB2w3 HrSW5CJ3MxQHLuIVAGHQS9x2GcCOEgyeygdokiWiFdMKMjGHNmOGCaRS6Zjt6voWVxqfQsJXLVFNyqYz yuAK1ljMdbofsuK9UzmYNkVMP+ZdZqGK4gmu6+CjEg VCLkBbm3IXEiGKyzIHDcGEWvKCKyT9avVYYySmGfCRHfLkLkDXRqPXXcMVOcK155yyGqBw0+UF1qx7Sl StycRJDDHQUxFJDzOEWwFYU4NwUyIVCdIVMkBEIfRtT7QyTlNlZUNQCsXDNiOLQrHHYaBDVxHPUvMZbq HQGuLMP6IACxOBEuFRPbRM1tZeZoMBGdKIT4GnBpIF QpIVRxhyENLFQkNSPwDVAxAOR1EGNbPEJcYObqUVVnICQrQXA2OLRdUGAjZR2lWrEmABUkMWQkYyluPY SfNAWjaqUXNVGsWFHwXKJ1LuBhMURwTWEuNTeuBMYjVENtWlt2PGGeCYObVK5pVuDgUCLbFTO0BCcsRF AwMDAgbiAKMDAwMDAwMDUyMyAwMDAwMCBuIAowMDAw ILLvNyIuTMMtYNGbAM4wKjWkBVCiHCH4YLLaBDYkLJJybaOEHDPmLPNnJOh6LWWvWPRbBBWyMNrkRJRm LUNsGRT9DHBtKHZcGN8vTwSyMAKpMDNmMBCcNNBeKBZjbvWNMGRoXFOnPRK2FATjTTUgFZZkOTfvQBKs LYHqYhp8PDJkZJNqCI7pEiUuFDXmWRR2HMLrQZGsXX QlcoWHSUYdWXAlZPH7EuRkSNItDTLbPFhtIKPsXYZtIcE0RDMtCQOjLR3dYlGdBHVhIJA1XlRbBDPtNL UhvvPPBTVqOFCcZBM0VlOjGWYlNDGoEMdaNDWgLZD7HpI7OLDyVZWyLH3cCzZeSILyIOE1WEYzMFJsRK VuvqJFFTZcYMSwEXb3ISDySUExFHMwLEkaBNHrFPEz Ass6ROPiRFBlEY8mDbFfIXBrYOHgAFZzAvO7BjFcPeARdOFeyCaihqj1PMreV8i6FEDeVGeyIT2eoiJu KODxZhxtFs8oeOT8UPYtDvqESg9Vn3UxncY5vtCiBjNxHJUoTpviXNUOBs== ID Date Data Source [id number] 05/02/2020 01:10:42 PM EDT [facility] Name Value Range Interpretation Code Description Data Debbie rce(s) Supporting Document(s) POC NOVA GLU 145 mg/dL (70-99) H [facility] ID Date Data Source [id number] 05/02/2020 03:00:13 PM EDT [facility] Name Value Range Interpretation Code Description Data Debbie rce(s) Supporting Document(s) MAGNESIUM 3.5 mg/dL (1.7-2.4) H [facility] ID Date Data Source [id number] 05/02/2020 03:00:13 PM EDT [facility] Name Value Range Interpretation Code Description Data Debbie rce(s) Supporting Document(s) SODIUM 139 mmol/L (136-145) [facility] POTASSIUM 4.4 mmol/L (3.6-5.2) [facility] CHLORIDE 106 mmol/L (100-108) [facility] CO2 25 mmol/L (22-31) [facility] ANION GAP 8 mmol/L (7-16) [facility] UREA NITROGEN 15 mg/dL (7-24) [facility] CREATININE 1.03 mg/dL (0.80-1.30) [facility] BUN/CREAT RATIO 14.6 RATIO (10.0-20.0) [facility] GLUCOSE 133 mg/dL (70-99) H [facility] CALCIUM 8.7 mg/dL (8.4-10.2) [facility] GFR >60 ml/min/1.73m2 (>59) [facility] GFR ( AMER) >60 ml/min/1.73m2 (>59) [facility] GFR INTERPRETATION [facility] --NORMAL KIDNEY FUNCTION OR MILD DISEASE - GFR >OR= 60CHRONIC KIDNEY DISEASE - GFR 15 - 59RENAL FAILURE - GFR <15 Est. GFR calculation based on the MDRDstudy equation, which assumes a steadystate for creatinine. Est. GFR should notbe used for medication dosing. ID Date Data Source [id number] 05/02/2020 02:56:07 PM EDT [facility] Name Value Range Interpretation Code Description Data Debbie rce(s) Supporting Document(s) CALCIUM IONIZED 5.16 mg/dL (4.64-5.28) [facility] IONIZED CALCIUM NORMALIZED TO PH 7.40 AN D 37 DEGREES C. ID Date Data Source [id number] 05/02/2020 02:33:37 PM EDT [facility] Name Value Range Interpretation Code Description Data Debbie rce(s) Supporting Document(s) WBC 12.4 10*3/uL (4.1-11.0) H [facility] RBC 3.58 10*6/uL (4.60-6.10) L [facility] HGB 8.9 g/dL (13.5-18.0) L [facility] HCT 27.8 % (41.0-53.0) L [facility] MCV 77.5 fL (80.0-95.0) L [facility] MCH 25.0 pg (27.0-32.0) L [facility] MCHC 32.2 g/dL (32.0-36.0) [facility] RDW 19.5 % (10.5-14.5) H [facility] PLT 318 10*3/uL (150-450) [facility] MPV 6.7 fL (7.1-10.7) L [facility] ID Date Data Source [id number] 05/02/2020 12:12:35 PM EDT [facility] Name Value Range Interpretation Code Description Data Debbie rce(s) Supporting Document(s) &PDF [facility] LBJYRr8jHwGDRbSy73/CZKyfKAXrx0IhYUjiQEj7LMbbSUEyW1OayAwmIXtNU0RPCgaQFBSPYRTUEImr vci [file] AgICAgICAgICAgICAgICAgICAgICAgICAgICAgICAgICAgICAgICAgICAgICAgICAgICAgICAgICAgIC QnYRAoYCTtRODfSYBoTJPiEIFyGNPfBCYzUR9GPHLo ICAgICAgICAgICAgICAgICAgICAgICAgICAgICAgICAgICAgICAgICAgICAgICAgICAgICAgICAgICAg JFGtHFNtTGKoPOSbCKSzXHVoOCQdNGYgSDNrROFcPSUfHYYvSS7OLMUyJSPeWPNsAPQjOMXuJRNmWOZr ICAgICAgICAgICAgICAgICAgICAgICAgICAgICAgIC DeEVBpLMOkRLMxMUWpFKZtSUTqFIJeCEXnWARsODDoZBXeNCCtFOZhOODrCMSvKA6PWXPtQNEwOIUrHI AgICAgICAgICAgICAgICAgICAgICAgICAgICAgICAgICAgICAgICAgICAgICAgICAgICAgICAgICAgIC VqRSKaNHXlAKYhHWJjYKFtGZVoKAWwIQViRJGaMU9C ICAgICAgICAgICAgICAgICAgICAgICAgICAgICAgICAgICAgICAgICAgICAgICAgICAgICAgICAgICAg ZKKzBBKrBXGnKJJiVWVnDJXqQDArKQMwRCWjQDXaSFCzLTRkMWQeXY4KHTGaEKQdNTMuXFZyQUUvPQOh ICAgICAgICAgICAgICAgICAgICAgICAgICAgICAgIC SyVHDlJJXgCNInXIYsXONxWVKbUUMxYVZeXYNgESOcOREzXKYjRPFwXWKwHOUaFSQtLE4LSKEaCQQlKQ AgICAgICAgICAgICAgICAgICAgICAgICAgICAgICAgICAgICAgICAgICAgICAgICAgICAgICAgICAgIC AgICAgICAgICAgICAgICAgICAgICAgICAgICAgICAg UA2RBTXeUJQcBXMdNFDxTVFiWSOaBDDpCRPyMLYmJBSgQERcTALfHUHjDFBqTOKpVZIxGRTtQBSaBFLx UVZdQXPpOHGbBPQvNRBjKNPuVHSaQYEgEMGxHWEhAXCmYMZxGXJhMOXgNN6RCHXvATLyHTFlSMEdJJHn ICAgICAgICAgICAgICAgICAgICAgICAgICAgICAgIC JuBEFoBHQgXQBoEFUqZKEaTFQlDUYtUEAtMDTkMDFhADCkKEXtUNFlBIKvBLTsIAXiBYUyGW9HFZTeKN AgICAgICAgICAgICAgICAgICAgICAgICAgICAgICAgICAgICAgICAgICAgICAgICAgICAgICAgICAgIC AgICAgICAgICAgICAgICAgICAgICAgICAgICAgICAg BMWaNV3QYN11wXDux9V7QTHkUJ0ldhe/Pm7QBNwovkUkuGFbLW9SSbGmKF8ogi6WWnHiDZ7wtd4BNUjU UeQeQ7L8mDNbNBTlCDZLLgVrY46qUPnmVf80BXmeNMXyUiUbOHr7Rl3MTqIlH4qmKINqOrM9KHPzJgOx WKonLQ5Ad8DgrEAfHCy+Ih8WPG8ck0PhGGfkMqYzKE 2hnz0GFTdVAxHlT7C9mIBkQ2P9DKrdKz7JRZPxCNRkIEFlPFHDRFfbGX6JZE8lntF9HV7EzIGmSSBcRB HjzVUtJRd3N35icHKkGXcxIH2TRYC+Krysta+Np8GMDGzBSJjUDEpAlQuKEDNVyUhJ44toKIuWYUnNDI4QQ CvFd7GQCDvL6RbweQpoTkzdrKpZCFbUEVHYD2HXImz ddQnnIBchWoxXG59rWthKU7RLx4HLuCfYG6qwd6VjSFnJd2VYMZkRx4VOFRjQPXnSHNdGDG6WOYwExNn QWclJCLjICUnMSW7JESpJFFdTN1FNuIqTHYnTRPmMhDkWFRoDOYlaq0IYSJqLCLmBZulUDPsYVAhVZWd NYkaMRJmZFHmBYwoZLYoNVKcBX8GNhCpFEXfRGZ3Al CzTZHwQAUvab9QPGWoQIKuNExxOQLyMMDvTGXwEUxwXJSvAMZsLUw7IMKzGPFrSQ2CVgCvOWIkNLXjTR LlKLBoYPVjfl9NAHMqKRCkOtJ7TgXsFEEoFHBaXNiaBIMeYLE4OxQgGFDuDAIaJD7FGxXpISGpNQN3Gt BeNDBuSXIkjx8QPOZiPTHbDKDiKVCpTNVcGGNwZZum VQPvXUF5FnN4WKUrLOApTC9IDzXvMMHaZXOvDVTmKWGdWEUlqi3DYZZcNTRjEKF8JAKnUFTpLUJjTRpe YLKcFXC3FFWiSYLeDQNuAI8SHoUrIFbrECFLSvq8FJriF9j7SCHgVa3HK7Vvx2KwABEaKOZHIGyvGR6w hmHkDJLtFq7XX1iGVsv4SVNaX5VaBDRuFXK5YhkzJp W2KjubEJMmVOW9MBKbGA4tTSUbPeZhUKY9NeL6Hxk7UIChWBwwXYGcL6XdHEBaMdM4ZbXnGX2TIt2AVi W1BKV3wACbLg2BVWKwWBbBBgJzSN2NNWm= ID Date Data Source [id number] 05/02/2020 11:59:27 AM EDT [facility] Name Value Range Interpretation Code Description Data Debbie rce(s) Supporting Document(s) POC ACT 98 s (80-140) [facility] PERFORMED BY [facility] ID Date Data Source [id number] 05/02/2020 11:58:01 AM EDT [facility] Name Value Range Interpretation Code Description Data Debbie rce(s) Supporting Document(s) POC SOURCE [facility] CP BYPASS [facility] POC PH 7.36 pH (7.35-7.45) [facility] POC PCO2 44.5 MMHG (32.0-48.0) [facility] POC PO2 63 MMHG (83-108) L [facility] POC SAT O2 91 % (95-99) L [facility] POC BASE DEFICIT 1 MMOL/L (0-2) [facility] POC HCO3 25.0 MMOL/L (21.0-29.0) [facility] POC TOTAL CO2 26 MMOL/L (23.0-32.0) [facility] POC HCT 26 % (41.0-53.0) L [facility] POC SODIUM 134 MMOL/L (136-145) L [facility] POC POTASSIUM 4.8 MMOL/L (3.6-5.2) [facility] POC IONIZED CALCIUM 5.3 MG/DL (4.6-5.3) [facility] POC GLU 151 MG/DL (70-99) H [facility] ID Date Data Source [id number] 05/02/2020 01:45:49 PM EDT [facility] Name Value Range Interpretation Code Description Data Debbie rce(s) Supporting Document(s) APTT 15.5 s (22.0-34.3) L [facility] PERFORMED BY ALTERNATE METHOD. REFERENCE RANGE = 24.7 - 33.3 ID Date Data Source [id number] 05/02/2020 01:37:20 PM EDT [facility] Name Value Range Interpretation Code Description Data Debbie rce(s) Supporting Document(s) PT 11.9 s (9.2-11.9) [facility] INR 1.14 [facility] SUGGESTED THERAPEUTIC RANGES USING INR F ORSTABILIZED ANTICOAGULATED PATIENTS:STANDARD DOSE THERAPY INR 2.0-3.0 DVT, PE, PREVENT DVT OR EMBOLISMHIGH DOSE THERAPY INR 2.5-3.5 PREVENT EMBOLISM FROM MECHANICAL HEART VALVE ID Date Data Source [id number] 05/02/2020 11:49:30 AM EDT [facility] Name Value Range Interpretation Code Description Data Debbie rce(s) Supporting Document(s) POC SOURCE [facility] CP BYPASS [facility] POC VENOUS PH 7.37 pH (7.33-7.43) [facility] POC VENOUS PCO2 44.0 MM HG (38.0-50.0) [facility] POC VENOUS PO2 38 MM HG (30-50) [facility] POC VENOUS SO2 71 % (60-85) [facility] POC VENOUS BASE EXCESS 0 mmol/L [facility] POC VENOUS HCO3 25.5 MMOL/L (23.0-27.0) [facility] POC VENOUS TOTAL CO2 27 MMOL/L (24-28) [facility] POC HCT 24 % (41.0-53.0) L [facility] POC SODIUM 135 MMOL/L (136-145) L [facility] POC POTASSIUM 5.6 MMOL/L (3.6-5.2) H [facility] POC IONIZED CALCIUM 4.5 MG/DL (4.6-5.3) L [facility] POC GLU 164 MG/DL (70-99) H [facility] ID Date Data Source [id number] 05/02/2020 11:49:59 AM EDT [facility] Name Value Range Interpretation Code Description Data Debbie rce(s) Supporting Document(s) POC ACT 417 s (80-140) H [facility] ID Date Data Source [id number] 05/02/2020 11:03:52 AM EDT [facility] INFORMATIONPatient MRN Name Date of Age Gend*PT [id number] Hiral Ferreira 1960 60 years M SDAPT Location Admission Date/Time Visit ID Attending Provider --- --- --- --- EPI ID CSN Admitting Provider [id number] ---Peripheral BlockPatient location during procedure: pre-opReason for block: at surgeon's request and post-op pain managementStaffingAnesthesiologist: ENMANUEL Patriciareanesthetic ChecklistCompleted: patient identified, site marked, surgical consent, pre-op evaluation,timeout performed, IV checked, risks and benefits discussed and monitors andequipment checkedPeripheral BlockPatient position: sittingPrep: ChloraPrepPatient monitoring: continuous pulse ox, heart rate and cardiac monitorBlock type: lumbar plexus (erector spinae fascial plane block)Laterality: rightInjection technique: single-shotProcedures: ultrasound guidedLocal infiltration: ropivicaineInfiltration strength: 0.5 %Dose: 25 mLAdjuvants: dexamethasoneDose: 5 mgNeedleNeedle type: Regional needleNeedle gauge: 21 GNeedle length: 10 cmNeedle localization: ultrasound guidanceTest dose: not conductedAssessmentInjection assessment: negative aspiration for heme Q 5 ml, no paresthesia oninjection and incremental injectionParesthesia pain: noneHeart rate change: no Name Value Range Interpretation Code Description Data Debbie rce(s) Supporting Document(s) ID Date Data Source [id number] 05/02/2020 11:05:27 AM EDT [facility] Name Value Range Interpretation Code Description Data Debbie rce(s) Supporting Document(s) POC ACT 516 s (80-140) H [facility] ID Date Data Source [id number] 05/02/2020 11:01:25 AM EDT [facility] Name Value Range Interpretation Code Description Data Debbie rce(s) Supporting Document(s) POC SOURCE [facility] CP BYPASS [facility] POC VENOUS PH 7.36 pH (7.33-7.43) [facility] POC VENOUS PCO2 47.0 MM HG (38.0-50.0) [facility] POC VENOUS PO2 42 MM HG (30-50) [facility] POC VENOUS SO2 75 % (60-85) [facility] POC VENOUS BASE EXCESS 1 mmol/L [facility] POC VENOUS HCO3 26.5 MMOL/L (23.0-27.0) [facility] POC VENOUS TOTAL CO2 28 MMOL/L (24-28) [facility] POC HCT 26 % (41.0-53.0) L [facility] POC SODIUM 135 MMOL/L (136-145) L [facility] POC POTASSIUM 4.5 MMOL/L (3.6-5.2) [facility] POC IONIZED CALCIUM 4.6 MG/DL (4.6-5.3) [facility] POC GLU 141 MG/DL (70-99) H [facility] ID Date Data Source [id number] 05/02/2020 10:31:51 AM EDT [facility] INFORMATIONPatient MRN Name Date of Age Gend*PT [id number] Jose GuadalupeHiral J 1960 60 years M SDAPT Location Admission Date/Time Visit ID Attending Provider --- --- --- --- EPI ID CSN Admitting Provider [id number] ---Central Line InsertionPatient location during procedure: ORIndications for central line: hemodynamic monitoring, vasoactive infusions andvascular accessStaffingPerformed by: Stephanie Perkins CRNAApproved by: Vanessa Adrian, MDCompleted: patient identified, risks and benefits discussed, surgical consentobtained, anesthesia consent obtained, monitors and equipment checked, pre-opevaluation completed, timeout performed, patient was prepped and draped in usualsterile fashion,Central LineCatheter type: IntroducerCVC type: non- tunnelledSite prep: chlorhexidine gluconateLaterality: rightLocation: internal jugularTechnique: CVC inserted using ultrasound guidanceProcedure: Catheter inserted and manometry was performed, Guidewire passedthrough the catheter, No arrythmias and Catheter was withdrawnAssessmentSecurement method: SuturedPlacement verification: UltrasoundAssessment: tolerated well Name Value Range Interpretation Code Description Data Debbie rce(s) Supporting Document(s) ID Date Data Source [id number] 05/02/2020 10:29:59 AM EDT [facility] NT INFORMATIONPatient MRN Name Date of Age Gend*PT [id number] EminenceHiral dugan J 1960 60 years M SDAPT Location Admission Date/Time Visit ID Attending Provider --- --- --- --- EPI ID CSN Admitting Provider [id number] ---Introducer AdditionsPatient location during procedure: ORIndications for introducer addition: Hemodynamic monitoringStaffingPerformed by: Stephanie Perkins CRNAApproved by: Vanessa Adrian, MDCompleted: patient identified, risks and benefits discussed, surgical consentobtained, anesthesia consent obtained, monitors and equipment checked, pre-opevaluation completed, timeout performed, patient was prepped and draped in usualsterile fashion,Introducer AdditionsIntroducer addition: Pulmonary Artery CatheterInsertion depth (cm): 10Introducer placed: At time of introducer additionPA Catheter procedure: Oximetric PA Catheter introduced, Pulmonary arteryidentified and balloon taken back down and PAOP was not obtainedAssessmentSecurement method: s uturedAssessment: tolerated well Name Value Range Interpretation Code Description Data Debbie rce(s) Supporting Document(s) ID Date Data Source [id number] 05/02/2020 10:28:31 AM EDT [facility] NT INFORMATIONPatient MRN Name Date of Age Gend*PT [id number] Hiral Ferreira 1960 60 years M SDAPT Location Admission Date/Time Visit ID Attending Provider --- --- --- --- EPI ID CSN Admitting Provider [id number] ---Arterial Line PlacementPatient location during procedure: ORIndications for arterial line: hemodynamic monitoringStaffingPerformed by: Stephanie Perkins CRNAApproved by: Vanessa Adrian, MDCompleted: patient identified, risks and benefits discussed, surgical consentobtained, anesthesia consent obtained, monitors and equipment checked, pre-opevaluation completed, timeout performed, patient was prepped and draped in usualsterile fashion,Arterial Line InsertionSite prep: chlorhexidineAnesthesia: noneLaterality: leftLocation: radial arteryNeedle g auge: 20 GTechnique: Seldinger technique usedNumber of attempts: 3AssessmentSutured: noDressing: dressing appliedPatient tolerance: tolerated well Name Value Range Interpretation Code Description Data Debbie rce(s) Supporting Document(s) ID Date Data Source [id number] 05/02/2020 10:33:26 AM EDT [facility] Name Value Range Interpretation Code Description Data Debbie rce(s) Supporting Document(s) POC SOURCE [facility] CP BYPASS [facility] POC PH 7.35 pH (7.35-7.45) [facility] POC PCO2 49.0 MMHG (32.0-48.0) H [facility] POC PO2 66 MMHG (83-108) L [facility] POC SAT O2 91 % (95-99) L [facility] POC BASE EXCESS 1 MMOL/L (0-3) [facility] POC HCO3 26.8 MMOL/L (21.0-29.0) [facility] POC TOTAL CO2 28 MMOL/L (23.0-32.0) [facility] POC HCT 30 % (41.0-53.0) L [facility] POC SODIUM 137 MMOL/L (136-145) [facility] POC POTASSIUM 4.2 MMOL/L (3.6-5.2) [facility] POC IONIZED CALCIUM 4.9 MG/DL (4.6-5.3) [facility] POC GLU 116 MG/DL (70-99) H [facility] ID Date Data Source [id number] 05/02/2020 10:15:27 AM EDT [facility] Name Value Range Interpretation Code Description Data Debbie rce(s) Supporting Document(s) POC ACT 384 s (80-140) H [facility] ID Date Data Source [id number] 05/02/2020 09:33:53 AM EDT [facility] INFORMATIONPatient MRN Name Date of Age Gend*PT [id number] Hiral Ferreira 1960 60 years M SDAPT Location Admission Date/Time Visit ID Attending Provider --- --- --- --- EPI ID CSN Admitting Provider [id number] ---AirwayPatient location during procedure: ORUrgency: electiveDifficult airway: noAdvanced airway equipment used: noStaffingPerformed by: Stephanie Perkins CRNAAnesthesiologist: Vanessa Adrian MDIndications and Patient ConditionIndications for airway management: anesthesiaPreoxygenated: yesPatient position: sniffingIn-line stabilization: noMask ventilation: 1 - vent by maskFinal Airway/ApproachesFinal airway type: ETTNumber of attempts at final approach: 1Number of other approaches attempted: 0Final Airway DetailsFinal ETT airway: ETT - singleCuffed: yesTechnique used for successful ETT placement: direct laryngoscopyCricoid pressure: yesRSI: noInsertion site: oralBlade type/size: MAC 3.5ETT size: 8.5 mmMeasured from: lipsETT to lips: 22 cmPlacement verified by: chest auscultation and + [id number]: equal breath sounds bilateralGrade view: grade I - full view of glottis Name Value Range Interpretation Code Description Data Debbie rce(s) Supporting Document(s) ID Date Data Source [id number] 05/02/2020 09:34:24 AM EDT [facility] Name Value Range Interpretation Code Description Data Debbie rce(s) Supporting Document(s) POC SOURCE [facility] CP BYPASS [facility] POC PH 7.36 pH (7.35-7.45) [facility] POC PCO2 51.6 MMHG (32.0-48.0) H [facility] POC PO2 469 MMHG (83-108) H [facility] POC SAT O2 100 % (95-99) H [facility] POC BASE EXCESS 3 MMOL/L (0-3) [facility] POC HCO3 29.3 MMOL/L (21.0-29.0) H [facility] POC TOTAL CO2 31 MMOL/L (23.0-32.0) [facility] POC HCT 31 % (41.0-53.0) L [facility] POC SODIUM 137 MMOL/L (136-145) [facility] POC POTASSIUM 4.1 MMOL/L (3.6-5.2) [facility] POC IONIZED CALCIUM 4.8 MG/DL (4.6-5.3) [facility] POC GLU 104 MG/DL (70-99) H [facility] ID Date Data Source [id number] 05/02/2020 09:38:57 AM EDT [facility] Name Value Range Interpretation Code Description Data Debbie rce(s) Supporting Document(s) POC ACT 120 s (80-140) [facility] ID Date Data Source [id number] 05/02/2020 08:03:36 AM EDT [facility] Name Value Range Interpretation Code Description Data Debbie rce(s) Supporting Document(s) ROOM TEMP AB SCREEN [facility] ROOM TEMP AB SCREEN NEGATIVE ID Date Data Source [id number] 05/06/2020 12:36:52 AM EDT [facility] SPEC EXP DATE 1PATI ENT ABO/Rh A POSITIVEANTIBODY SCREEN NEGATIVETESTING SITE PERFORMED AT [address] [place] [address] [id number] BANK COMMENT BLOOD TYPE CONFIRMED.UNIT NUMBER [id number] COMPONENT TYPE LEUKOPOOR RED CELLSUNIT DIVISION 00STATUS OF UNIT REL FROM ALLOCTRANSFUSION STATUS OK TO TRANSFUSECROSSMATCH RESULT COMPATIBLEUNIT NUMBER [id number] COMPONENT TYPE LEUKOPOOR RED CELLSUNIT DIVISION 00STATUS OF UNIT REL FROM ALLOCTRANSFUSION STATUS OK TO TRANSFUSECROSSMATCH RESULT COMPATIBLE Name Value Range Interpretation Code Description Data Debbie rce(s) Supporting Document(s) TYPE AND SCREEN [facility] ID Date Data Source [id number] 05/02/2020 06:39:21 AM EDT [facility] Name Value Range Interpretation Code Description Data Debbie rce(s) Supporting Document(s) POC NOVA GLU 101 mg/dL (70-99) H [facility] ID Date Data Source [id number] 04/27/2020 01:22:56 PM EDT [facility] Name Value Range Interpretation Code Description Data Debbie rce(s) Supporting Document(s) EKG [facility] ZKVZYh8lCbMISoXew2BgLfCcLLXeCN0wato4X8I8lOCzS7HrfNXky8xzX5UjA0TmAKCyKSTQZF7FxVZo jb2 [file] metal control worker+fUEOPOUEhqASNH+gEg+RBPauuBif4b+bj1P/XfA [file] MDkgMDAwMDAgbiAKMDAwMDAwMTczNCAwMDAwMCBuIA rcKCQgTRHsZAD1XWCtHALnNL3nTtVsUNOhKMHoWTHbOnE6PvKiDuGDiWWpiQadkmr6PEefM3g4RXWfAD ftMW2zxhBhDDDuPkcsXi6qtFP6FFIxAfhVNy6Nd1IgpcY7xlDqSkKbGPKbXaWwRY1D ID Date Data Source [id number] 04/28/2020 11:47:40 AM EDT [facility] SPECIMEN DESCRIPTION MIDSTREAM UR INE,CLEAN CATCHCULTURE RESULTS <10,000 CFU/ML REPRESENTING URETHRAL FLORAREPORT STATUS FINAL 04/28/2020 Name Value Range Interpretation Code Description Data Debbie rce(s) Supporting Document(s) ID Date Data Source [id number] 04/27/2020 03:43:50 PM EDT [facility] Name Value Range Interpretation Code Description Data Debbie rce(s) Supporting Document(s) COLOR [facility] APPEARANCE [facility] SPEC GRAV URINE 1.010 (1.003-1.030) [facility] PH URINE 7.5 (5.0-7.5) [facility] LEUK ESTERASE (NEG) [facility] NITRITE URINE (NEG) [facility] PROTEIN URINE (NEG) [facility] GLUCOSE URINE (NEG) [facility] KETONE URINE (NEG) [facility] UROBILINOGEN 0.2 mg/dL (0-1.0) [facility] BILIRUBIN URINE (NEG) [facility] BLOOD/HGB URINE (NEG) [facility] ID Date Data Source [id number] 04/27/2020 11:30:18 AM EDT [facility] INFORMATIONPatient MRN Name Date of Age Gend*PT [id number] Hiral Ferreira 1960 60 years M OPPT Location Admission Date/Time Visit ID Attending Provider --- --- --- Oneil Genao MD([id number]) EPI ID CSN Admitting Provider [id number] ---HISTORY PHYSICALName: Hiral Ferreira : 1960 Sex: male Care Provider: Rob Arredondoending Physician: Dr. 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 He saw his hairmasters manager and st udies were done. On 02/13/2020 he had aecho which showed severe aortic stenosis with an ejection fraction over 65%grade 1 diastolic dysfunction. Cardiac catheterization done on 02/14/2020 showedborderline single-vessel disease no significant coronary artery diseaseborderline elevation of PA pressure. He was scheduled for surgery last monthhowever preoperative blood work showed anemia, he was transfused and sent 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 It was thought they occurred due to to his aortic valvulardisease.The patient met with Dr. Genao, options were discussed and they have elected tounder go replacement, aortic valve, minimally invasive, right thoracotomyapproach, using heat port technique with YOLA on 05/02/2020.PAST MEDICAL HISTORY:Past Medical History:Diagnosis Date Abnormal carotid [...] moderate (CAROLA 1.3cm2, mean gradient 23mmHg) - [facility] Echocardiogram 01/08/2016 Normal LV size with [...] 81 mg by mouth daily Historical Provider, MDatorvastatin (LIPITOR) 80 MG tablet TAKE ONE TABLET BY MOUTH EVERY DAYPatient taking differently: Take 40 mg by mouth daily 10/18/19 Meri Mccormack, FNPbaclofen (LIORESAL) 10 MG tablet Take 10 mg by mouth 3 (three) times a day asneeded (for muscle spasms) Historical Provider, Navihlorthalidone (HYGROTEN) 25 MG tablet Take 1 tablet (25 mg total) by mouthdaily 02/26/20 Marla Marino, MDcitalopram (CELEXA) 40 MG tablet Take 40 mg by mouth daily 01/18/20 HistoricalProvider, MDclopidogrel (PLAVIX) 75 MG tablet Take 75 mg by mouth daily 01/30/15Historical Provider, THEODORAiclofenac Sodium 1 % CREA Apply 1 application topically every 6 (six) hours asneeded (for pain) Historical Provider, lisinopril (PRINIVIL,ZESTRIL) 40 MG tablet Take 0.5 tablets (20 mg total) bymouth daily 02/26/20 Marla Marino, Rachidirtazapine (REMERON) 7.5 MG tablet Take 15 mg by mouth nightly as needed (forsleep) 01/16/20 Historical Provider, nortriptyline (PAMELOR) 25 MG capsule Take 50 mg by mouth nightly as /30/20 Historical Provider, MDpantoprazole (PROTONIX) 40 MG tablet Take 40 mg by mouth 2 (two) times a day02/04/18 Historical Provider, Collinucralfate (CARAFATE) 1 g tablet Take 1 g by mouth 2 (two) times a day 01/18/20Historical Provider, MDtamsulosin (FLOMAX) 0.4 MG CAPS Take 0.8 mg by mouth daily 01/18/20 HistoricalProvider, MDSocial HistoryTobacco Use Smoking status: Former [...] chills. Caffeine intake: 2cups/day. He has fatigue.HEENT: Wears glasses denies any blurred vision, double vision, dizziness,tinnitus, dysphagia or headaches. Has upper and lower denturesRespiratory: Denies any shortness of breath at rest, he is getting DIAZ withminimal exertion. Denies cough, yellow sputum production or wheezing.Cardiovascular: Denies any chest pain, pressure or tightness. Denies anyparoxysmal nocturnal dyspnea or orthopnea.Muscle/Skeletal System: Denies any muscle ache, joint ache or weakness.Neurologic: Denies any numbness, tingling, tremors or syncope.GI: Denies any nausea, vomiting, diarrhea, constipation or melena.: Denies any dysuria, hematuria or nocturia.Endocrine: Denies polyuria, polydipsia or polyphagia. Denies any heat or coldintolerance or night sweats.Hematology: Denies any bleeding or bruising tendencies.DNR Status: Full codeHCP: Has healthcare proxy per patient.PHYSICAL EXAM:General: He is a 60 years old, pleasant white male, in no acute distress at timeof examination. Vitals on arrival to the office are BP 143/69 (BP Location:Right upper arm, Patient Position: Sitting) | Pulse 70 | Ht 1.803 m (5' 11")| Wt 97.6 kg (215 lb 1.6 oz) | SpO2 97% | BMI 30.00 kg/m Body mass index is30 kg/m ..Skin is pink warm and dry.HEENT: He is normocephalic, atraumatic. Edmondson conjunctivae. Anicteric sclerae.Pupils are equal, round, reactive to light and accommodation. Extraocularmovements are intact. Ears: Without drainage or lesion. Mouth: Dentition is ingood repair. He has a grade 2 airway. Neck is supple midline without cervicaladenopathy. There is no tonsillo pharyngeal congestion. Mucous membranes aremoist. There are no oral lesions. No jugular distention. No carotid bruit.CHEST/BREAST: A/P less than transverse. Breast exam declined.LUNGS: Clear to auscultation. No wheezes, rhonchi or crackles.HEART: Rate rhythm regular. Systolic murmur, grade 3/6.ABDOMEN: Bowel sounds positive times four. Soft, non tender. No reboundtenderness. No hepatosplenomegaly. Negative CVAT.GENITAL/RECTAL: Deferred.MUSCLE/SKELETAL: Strength is 5/5. Office Machine Servicer are equal.NEUROLOGICALLY: Cranial nerves II through XII are grossly intact.VASCULAR: Pulses are symmetrical. No denies edema.Anesthesia complications: DeniesSteroid use: DeniesSELECT [facility]ICAL [facility] [place] Frailty Scale :: 3/10 Managing Well (medical problems are well controlled,but are not regularly active beyond routine walking).Stop Bang Questionnaire - Total Score:STOP-Bang Total Score: 4IMPRESSION and PLAN:Primary Diagnosis: None rheumatic aortic valve insuffi [facility] surgery asper .Secondary Diagnosis and Plan:1. CAD EKG obtained in Pre-Admission testing or external EKG within 6 months,Continuation of cardiac medications post-operatively based on clinical status2. Hypertension Continuation of prior to admission anti-hypertensivemedications unless precluded by clinical status.3. GI prophylaxis Per surgeon4. DVT prophylaxis Early ambulation. Pneumatic compression device.Subcutaneous Heparin or LMW Heparin if clinically indicatedBased on above medical co morbidities, length of stay may be prolonged greaterthan previously anticipated.ALLERGIES:Patient has no known drug allergies.04/27/2020 11:30 Ashley Sanon NP*This document or parts of this document, were dictated using [employer] software. A reasonable attempt at proofreading has beenmade to minimize errors. Please call with any questions or corrections. Name Value Range Interpretation Code Description Data Debbie nicolee(s) Supporting Document(s) ID Date Data Source [id number] 04/28/2020 02:02:35 PM EDT [facility] Name Value Range Interpretation Code Description Data Debbie rce(s) Supporting Document(s) SPECIMEN DESCRIPTION [facility] STAPH SCREEN RESULTS (ONEGSA) [facility] COMMENT [facility] GENE TO DETECT STAPH AUREUS. (2) RT-P CR WAS PERFORMED FOR THE mecA AND SCCm[employer] GENES TO DETECT METHICILLIN RESISTANCE IN STAPH AUREUS. ID Date Data Source [id number] 04/27/2020 04:18:54 PM EDT [facility] Name Value Range Interpretation Code Description Data Debbie rce(s) Supporting Document(s) SODIUM 136 mmol/L (136-145) [facility] POTASSIUM 4.9 mmol/L (3.6-5.2) [facility] CHLORIDE 100 mmol/L (100-108) [facility] CO2 31 mmol/L (22-31) [facility] ANION GAP 5 mmol/L (7-16) L [facility] RESULTS REVIEWED UREA NITROGEN 11 mg/dL (7-24) [facility] CREATININE 0.77 mg/dL (0.80-1.30) L [facility] BUN/CREAT RATIO 14.3 RATIO (10.0-20.0) [facility] GLUCOSE 94 mg/dL (70-99) [facility] CALCIUM 9.6 mg/dL (8.4-10.2) [facility] TOTAL PROTEIN 6.9 g/dL (6.4-8.2) [facility] ALBUMIN 4.1 g/dL (3.2-4.5) [facility] GLOBULIN 2.8 g/dL (2.7-4.3) [facility] ALB/GLOB RATIO 1.5 RATIO [facility] ALKALINE PHOSPHATASE 143 U/L (45-117) H [facility] BILIRUBIN,TOTAL 0.3 mg/dL (0.0-1.0) [facility] PLEASE NOTE:Total bilirubin results may be falselyelevated in patients taking Eltrombopag. AST (SGOT) 17 U/L (11-39) [facility] ALT (SGPT) 25 U/L (12-78) [facility] GFR >60 ml/min/1.73m2 (>59) [facility] GFR ( AMER) >60 ml/min/1.73m2 (>59) [facility] GFR INTERPRETATION Lab [facility] e of [place] --NORMAL KIDNEY FUNCTION OR MILD DISEASE - GFR >OR= 60CHRONIC KIDNEY DISEASE - GFR 15 - 59RENAL FAILURE - GFR <15 Est. GFR calculation based on the MDRDstudy equation, which assumes a steadystate for creatinine. Est. GFR should notbe used for medication dosing. ID Date Data Source [id number] 04/27/2020 04:18:54 PM EDT Lab [facility] NICOLA Name Value Range Interpretation Code Description Data Debbie rce(s) Supporting Document(s) NT PRO BNP 191 pg/mL (0-125) H [facility] [place] ID Date Data Source [id number] 04/27/2020 03:25:32 PM EDT [facility] [place] Name Value Range Interpretation Code Description Data Debbie rce(s) Supporting Document(s) HEMOGLOBIN A1C @ 6.0 % (4.0-6.0) [facility] Performed using Siemens Dundee immunoassa y.Care must be taken when interpreting [id number] in patients with a hemoglobin variantor decreased erythrocyte lifespan. Values 5.7 - 6.4% suggest prediabetes.Values >=6.5% are diagnostic for diabetes.REFERENCE: DIABETES CARE 2018: 41(S13-S27). EST AVERAGE GLUCOSE 126 mg/dL Lab [facility] NICOLA ID Date Data Source [id number] 04/27/2020 03:10:09 PM EDT Lab [facility] [place] Name Value Range Interpretation Code Description Data Debbie rce(s) Supporting Document(s) PT 10.3 s (9.2-11.9) [facility] INR 0.99 [facility] SUGGESTED THERAPEUTIC RANGES USING INR F ORSTABILIZED ANTICOAGULATED PATIENTS:STANDARD DOSE THERAPY INR 2.0-3.0 DVT, PE, PREVENT DVT OR EMBOLISMHIGH DOSE THERAPY INR 2.5-3.5 PREVENT EMBOLISM FROM MECHANICAL HEART VALVE ID Date Data Source [id number] 04/27/2020 03:10:09 PM EDT [facility] Name Value Range Interpretation Code Description Data Debbie rce(s) Supporting Document(s) APTT 24.9 s (22.0-34.3) [facility] ID Date Data Source [id number] 04/27/2020 02:41:09 PM EDT [facility] Name Value Range Interpretation Code Description Data Debbie rce(s) Supporting Document(s) WBC 5.4 10*3/uL (4.1-11.0) [facility] [place] RBC 4.02 10*6/uL (4.60-6.10) L [facility] HGB 10.0 g/dL (13.5-18.0) L [facility] HCT 30.9 % (41.0-53.0) L [facility] MCV 76.7 fL (80.0-95.0) L [facility] MCH 24.8 pg (27.0-32.0) L [facility] MCHC 32.3 g/dL (32.0-36.0) [facility] RDW 19.5 % (10.5-14.5) H [facility] PLT 468 10*3/uL (150-450) H [facility] MPV 6.8 fL (7.1-10.7) L [facility] NEUT % 66.3 % (35.0-75.0) [facility] LYMPH % 23.1 % (16.0-52.0) [facility] MONO % 9.1 % (0.0-8.0) H [facility] EOS % 0.8 % (0.0-5.0) [facility] BASO % 0.7 % (0.0-4.0) [facility] NEUT # 3.6 10*3/uL (1.8-7.7) [facility] LYMPH # 1.3 10*3/uL (1.2-4.8) [facility] MONO # 0.5 10*3/uL (0.0-0.8) [facility] Eosinophils [#/volume] in Blood by Automated count 0.0 10*3/uL (0.0-0 .5) [facility] PETERSEN BASO # 0.0 10*3/uL (0.0-0.2) [facility] ID Date Data Source [id number] 04/27/2020 09:30:00 AM EDT [facility] Name Value Range Interpretation Code Description Data Debbie rce(s) Supporting Document(s) SARS coronavirus [address] [facility] This lab was ordered by [facility] and reported by [employer]. ID Date Data Source [id number] 04/28/2020 11:07:46 PM EDT [facility] preethi PETERSEN Name Value Range Interpretation Code Description Data Debbie rce(s) Supporting Document(s) SARS-COV-2 RAD [facility] preethi EPTERSEN Not DetectedReference range: Not Detecte d This nucleic acid amplification test was developed and its performance characteristics determined by [employer]. Nucleic acid amplification tests include RT-PCR and [...] detected) result in this assay. Performed At: [facility] [place], [place] [id number] Markie Pelaez Padma PhD Ph:[phone] ID Date Data Source [id number] 04/05/2020 10:18:00 AM EST [facility] Name Value Range Interpretation Code Description Data Debbie rce(s) Supporting Document(s) SARS coronavirus 2 RNA [Presence] in Res piratory specimen by RAD with probe detection NEGATIVE [facility] This lab was ordered by [facility] a nd reported by [facility]. ID Date Data Source [id number] 04/02/2020 01:01:10 PM EST [facility] Name Value Range Interpretation Code Description Data Debbie rce(s) Supporting Document(s) POC SOURCE [facility] PUNCTURE SITE [facility] O2 THERAPY [facility] PAUL TEST [facility] POC PH 7.46 pH (7.35-7.45) H [facility] POC PCO2 35.4 MMHG (32.0-48.0) [facility] POC PO2 81 MMHG (83-108) L [facility] POC SAT O2 97 % (95-99) [facility] POC BASE EXCESS 2 MMOL/L (0-3) [facility] POC HCO3 25.3 MMOL/L (21.0-29.0) [facility] POC TOTAL CO2 26 MMOL/L (23.0-32.0) [facility] PERFORMED BY [facility] ID Date Data Source [id number] 04/02/2020 11:55:00 AM EST [facility] CHEST ROUTINE PA and LATCLINICAL HISTORY: [...] determined clinically.Dictated by: DANE DAS M.D. on 04/02/2020lectronically Signed by: DANE DAS M.D. on 04/02/2020 03:21 PMTranscribed by: teodora on 04/02/2020 03:21 PMCDS G code: ,CDS Modifier: ,cc: Name Value Range Interpretation Code Description Data Debbie rce(s) Supporting Document(s) ID Date Data Source [id number] 04/02/2020 11:44:00 AM EST [facility] CAROTID DUPLEXCLINICAL HISTORY: Pretesting. [...] rce(s) Supporting Document(s) ID Date Data Source [id number] 04/02/2020 11:35:15 AM EST [facility] Name Value Range Interpretation Code Description Data Debbie rce(s) Supporting Document(s) EKG [facility] AAEYBx9gOjMOZeDrk3XvLsDhQQAbKH7btht5A9N1mTGlI6KhfXCfj4zxE5GoH4IjMKKbTHCKOL0DoRSa jb2 [file] iQ5L+vtgnM1E+qiovS4Y+fmukI0M+ayajW2S+vnyhd0Q+wgyax7A+hejqv2V+dwtqG1L+yixgV4N+vgw iU5M+usytE1Xix/tJ4RPX4iVhXkbPdpQwUinornOfI kffybRoUkfjybRpUkfnybRqUkfrybRrUkfvybRsUn9+0VEPT++XqMlef5iCcN4xe6+KuRSng8uXhRTbx 4+EsVWzp5jBgWzav8+UeZgxe9qCbTdtb5+AwZvno6eFvQ4rm6+RnLZmw0fE6OBvp6+O3VGhv5jE0Zdpt 5+P1Gmhy9kQ2Kgui3+B7Lrnm8vL1O0kz2+I7HJkU9j UKILlD4+TSNWqE5wCTMlwO0+VAQzpQ5yYVUzbO8+UUPvdI1tCQF8xN1+UKY/lD/+UKY/lD/+UKY/lD/+ UKY/lD/+UKY/lD/+UKY/lD/+UKY/lD/+UKY/lD/+UKY/lD/+UKY/lD/+UKY/lD/+UKY/lD/+UKY/lD/+ UKY/lD/+UKY/lD/+UKY/lL/bW7UB4iyWC5Yt/t0aTV ik+egZlmm+0mMpvsm0JkXTsx2oLSUg8ijeP0GkNr5Zda+UP/5Qpj+UP/5Qpj+UP/5Qpj+UP/5Qpj+UP/ 5Qpj+UP/5Qpj+UP/5Qpj+UP/5Qpj+UP/5Qpj+UP/5Qpj+UP/5Qpj+UP/5Qpj+UP/5Qpj+UP/5Qpj+UP/ 5Qpj+UP/5Qpj+UP/5Qpj+UP/5Qpj+UP/5Qpj+UP/5Q pj+UP/5Qpj+UP/5Qpj+UP/5Qpj+UP/5Qpj+UP/5Qpj+UP/5Qpj+UP/5Qpj+UP/5Qpj+UP/5Qpj+UP/5Q pj+UP/5Qpj+UP/5Qpj+UP/5Qpj+UP/5Q/UXDl/VO22CXI0YAIg2cDGxpfO9v8Q4IgXJ9rlZC2NIPF4MV Ft71LjZ+cavk3oRuK5Y+ermJ2nFiM1I+gqxJ4zUmJ8 E+kmrC0jGvP8P+brhB6gKrJ2W+lodL1gMoZ2Y+nbiY5oZnV2R+dqbQ2pPtW8H+kosE3aYbH8H+lfo06t OoT6M+vcl92yVdN5W+pnz04jTeQ2V+ILW65vWlF1S+eaw91qBzB3b+tlr17pAzN4a+irv30aUnZ2d+nf n29nFhU3t+jewB3mQbh5U+g/lL4zAyr1K+g/oM6jOo z6A+g/yY4tDey9O+g/tF6bSkc8E+k/lG7cLwe0I+k/wA1zFwx6V+k/rR9yWpd4F+k/rw4hZyh5K+i/os 2sSjw5M+i/qz5cXkm7K+i/cp7rTfd0B+i/mqpcigln5hZIkhQr1HPxqQasMisiMhiQKuRDdLO+sT5tYn CT3CuF0bUM9+Yn7G3NyDxiT3R7O/BXHPSc5N9PsGta T0S0G/1GjM6rL0D3A4cW1B5D8NjXCO0MHPvVLY8ZBYoSGW6PIBdMOX6HCLnCHX5RYCjZLB2HFOjLJV4L JFrFpU2EqTbXtV3ZeWuEmK0NrUtQiL5HdQtKaG7XiFsLxR8XjRzC0J5H6EvC1I1N3NvJ3L6L8PaRWS6K ESlQCX3EOQaAYK0FCVoXLF7JDIzDZX9HHOyTPC9EQE vZSO6VNCxXhM2DgEkXzE4EmHtNcW8PaQsGtG3RbEfAyO1DeAkXxB27agamC9CYwsry/a4Wuz8alxE/N1 F0yfThXZWV6GpKwUynZxjhWyeYidfCkgtZJcQidvlHivuSgYPDvD56EAW4K8KQNFHR8C3WUOJ5V28vLF A0+N+NTAUyM+HvMKpI5PRSIoSosAsU4dg5Q/vfywm5 9PPz/c8JgrUQSGa3QII/nYSKKRpI+VJJpJ+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 GenaoInformant: The patient who is [...] minutes of rest and 2 syncopal episodes 2019. Denies palpitations, peripheral edema, orthopnea, PND ortachycardia. After syncopal episodes patient was seen and evaluated by his PCP.Subsequently he was referred to hairmasters manager Dr. Villaseñor. On 02/13/2020 heunderwent TTE [...] moderate (CAROLA 1.3cm2, mean gradient 23mmHg) - [facility] Echocardiogram 01/08/2016 Normal LV size with [...] mg by mouth daily 10/18/19 Meri Mccormack, MELANIEPbaclofen (LIORESAL) 10 MG tablet Take 10 mg by mouth 3 (three) times a day asneeded Historical Provider, Navihlorthalidone (HYGROTEN) 25 MG tablet Take 1 tablet (25 mg total) by mouthdaily 02/26/20 Marla Marino, MDcitalopram (CELEXA) 40 MG tablet Take 40 [...] Take 15 mg by mouth nightly as gyaria84/7/20 Historical Provider, nortriptyline (PAMELOR) 25 MG capsule Take 50 mg by mouth nightly as flynaw45/30/20 Historical Provider, MDpantoprazole (PROTONIX) 40 MG tablet Take 40 mg by mouth 2 (two) times a day02/04/18 Historical Provider, Collinucralfate (CARAFATE) 1 g tablet Take 1 g [...] warm and dry.HEENT: He is normocephalic, atraumatic. Edmondson conjunctivae. Anicteric sclerae.Pupils are equal, round, reactive [...] hepatosplenomegaly. Negative CVAT.GENITAL/RECTAL: Deferred.MUSCLE/SKELETAL: Strength is 5/5. Office Machine Servicer are equal. Spinal cord stimulatorintact to lower [...] anticipated.ALLERGIES:Patient has no known drug allergies.04/02/2020 11:28 AMLyudmijean paul Byrd, NPThis document or parts of this document, were dictated using [employer] speaking software. A reasonable attempt at proofreading has beenmade to minimize errors. Please call with any questions or corrections. Name Value Range Interpretation Code Description Data Debbie rce(s) Supporting Document(s) ID Date Data Source [id number] 04/02/2020 10:01:02 PM EST [facility] SPEC EXP DATE 1PATI ENT ABO/Rh A POSITIVEANTIBODY SCREEN NEGATIVETESTING SITE PERFORMED AT [address] [place] [address] Name Value Range Interpretation Code Description Data Debbie rce(s) Supporting Document(s) TYPE AND SCREEN [facility] ID Date Data Source [id number] 04/02/2020 07:01:34 PM EST [facility] Name Value Range Interpretation Code Description Data Debbie rce(s) Supporting Document(s) HEMOGLOBIN A1C @ 5.9 % (4.0-6.0) [facility] Performed using Siemens Dundee immunoassa y.Care must be taken when interpreting YiU9ewihypzm in patients with a hemoglobin variantor decreased erythrocyte lifespan. Values 5.7 - 6.4% suggest prediabetes.Values >=6.5% are diagnostic for diabetes.REFERENCE: DIABETES CARE 2018: 41(S13-S27). EST AVERAGE GLUCOSE 123 mg/dL Lab Logan [facility]eto [facility] ID Date Data Source [id number] 04/02/2020 06:39:07 PM EST [facility] Name Value Range Interpretation Code Description Data Debbie rce(s) Supporting Document(s) ROOM TEMP AB SCREEN [facility] ROOM TEMP AB SCREEN NEGATIVE ID Date Data Source [id number] 04/02/2020 06:16:26 PM EST [facility] Name Value Range Interpretation Code Description Data Debbie rce(s) Supporting Document(s) NT PRO BNP 163 pg/mL (0-125) H [facility] ID Date Data Source [id number] 04/02/2020 06:16:26 PM EST [facility] Name Value Range Interpretation Code Description Data Debbie rce(s) Supporting Document(s) SODIUM 134 mmol/L (136-145) L [facility] POTASSIUM 4.8 mmol/L (3.6-5.2) [facility] CHLORIDE 97 mmol/L (100-108) L [facility] CO2 29 mmol/L (22-31) [facility] ANION GAP 8 mmol/L (7-16) [facility] UREA NITROGEN 12 mg/dL (7-24) [facility] CREATININE 0.89 mg/dL (0.80-1.30) [facility] BUN/CREAT RATIO 13.5 RATIO (10.0-20.0) [facility] GLUCOSE 99 mg/dL (70-99) [facility] CALCIUM 9.5 mg/dL (8.4-10.2) [facility] TOTAL PROTEIN 7.1 g/dL (6.4-8.2) [facility] ALBUMIN 4.2 g/dL (3.2-4.5) [facility] GLOBULIN 2.9 g/dL (2.7-4.3) [facility] ALB/GLOB RATIO 1.4 RATIO [facility] ALKALINE PHOSPHATASE 139 U/L (45-117) H [facility] BILIRUBIN,TOTAL 0.4 mg/dL (0.0-1.0) [facility] PLEASE NOTE:Total bilirubin results may be falselyelevated in patients taking Eltrombopag. AST (SGOT) 20 U/L (11-39) [facility] ALT (SGPT) 27 U/L (12-78) [facility] GFR >60 ml/min/1.73m2 (>59) [facility] GFR ( AMER) >60 ml/min/1.73m2 (>59) [facility] GFR INTERPRETATION [facility] --NORMAL KIDNEY FUNCTION OR MILD DISEASE - GFR >OR= 60CHRONIC KIDNEY DISEASE - GFR 15 - 59RENAL FAILURE - GFR <15 Est. GFR calculation based on the MDRDstudy equation, which assumes a steadystate for creatinine. Est. GFR should notbe used for medication dosing. ID Date Data Source [id number] 04/02/2020 04:34:24 PM EST [facility] Name Value Range Interpretation Code Description Data Debbie rce(s) Supporting Document(s) WBC 6.1 10*3/uL (4.1-11.0) [facility] [place] RBC 3.38 10*6/uL (4.60-6.10) L [facility] HGB 8.3 g/dL (13.5-18.0) L [facility] HCT 25.5 % (41.0-53.0) L [facility] MCV 75.5 fL (80.0-95.0) L [facility] MCH 24.5 pg (27.0-32.0) L [facility] MCHC 32.5 g/dL (32.0-36.0) [facility] RDW 16.8 % (10.5-14.5) H [facility] PLT 513 10*3/uL (150-450) H [facility] MPV 6.5 fL (7.1-10.7) L [facility] NEUT % 72.2 % (35.0-75.0) [facility] LYMPH % 16.7 % (16.0-52.0) [facility] MONO % 9.8 % (0.0-8.0) H [facility] EOS % 0.4 % (0.0-5.0) [facility] BASO % 0.9 % (0.0-4.0) [facility] NEUT # 4.4 10*3/uL (1.8-7.7) [facility] LYMPH # 1.0 10*3/uL (1.2-4.8) L [facility] MONO # 0.6 10*3/uL (0.0-0.8) [facility] Eosinophils [#/volume] in Blood by Automated count 0.0 10*3/uL (0.0-0 .5) [facility] BASO # 0.1 10*3/uL (0.0-0.2) [facility] ID Date Data Source [id number] 04/02/2020 04:28:10 PM EST [facility] Name Value Range Interpretation Code Description Data Debbie rce(s) Supporting Document(s) PT 10.4 s (9.2-11.9) [facility] INR 1.00 [facility] SUGGESTED THERAPEUTIC RANGES USING INR F ORSTABILIZED ANTICOAGULATED PATIENTS:STANDARD DOSE THERAPY INR 2.0-3.0 DVT, PE, PREVENT DVT OR EMBOLISMHIGH DOSE THERAPY INR 2.5-3.5 PREVENT EMBOLISM FROM MECHANICAL HEART VALVE ID Date Data Source [id number] 04/02/2020 04:28:10 PM EST [facility] Name Value Range Interpretation Code Description Data Debbie rce(s) Supporting Document(s) APTT 21.5 s (22.0-34.3) L [facility] ID Date Data Source [id number] 04/02/2020 07:35:56 PM EST [facility] Name Value Range Interpretation Code Description Data Debbie rce(s) Supporting Document(s) COLOR [facility] APPEARANCE [facility] SPEC GRAV URINE 1.008 (1.003-1.030) [facility] PH URINE 7.0 (5.0-7.5) [facility] LEUK ESTERASE (NEG) [facility] NITRITE URINE (NEG) [facility] PROTEIN URINE (NEG) [facility] GLUCOSE URINE (NEG) [facility] KETONE URINE (NEG) [facility] UROBILINOGEN 0.2 mg/dL (0-1.0) [facility] BILIRUBIN URINE (NEG) [facility] BLOOD/HGB URINE (NEG) [facility] ID Date Data Source [id number] 04/03/2020 03:16:07 PM EST [facility] SPECIMEN DESCRIPTION MIDSTREAM UR INE,CLEAN CATCHCULTURE RESULTS NO GROWTHREPORT STATUS FINAL 04/03/2020 Name Value Range Interpretation Code Description Data Debbie rce(s) Supporting Document(s) ID Date Data Source [id number] 04/03/2020 11:20:01 AM EST [facility] Name Value Range Interpretation Code Description Data Debbie rce(s) Supporting Document(s) SPECIMEN DESCRIPTION [facility] STAPH SCREEN RESULTS (ONEGSA) [facility] COMMENT [facility] GENE TO DETECT STAPH AUREUS. (2) RT-P CR WAS PERFORMED FOR THE mecA AND [employer] GENES TO DETECT METHICILLIN RESISTANCE IN STAPH AUREUS. ID Date Data Source [id number] 04/02/2020 09:45:00 AM EST [facility] Name Value Range Interpretation Code Description Data Debbie rce(s) Supporting Document(s) SARS coronavirus [address] [facility] This lab was ordered by [facility] and reported by [employer]. ID Date Data Source [id number] 04/03/2020 06:08:42 PM EST [facility] Name Value Range Interpretation Code Description Data Debbie rce(s) Supporting Document(s) SARS-COV-2 RAD [facility] Not DetectedReference range: Not Detecte d This nucleic acid amplification test was developed and its performance characteristics determined by [employer]. Nucleic acid amplification tests include RT-PCR and [...] detected) result in this assay. Performed At: [facility] [place], [place] [id number] Markie Rouse PhD Ph:[phone] ID Date Data Source [id number] 02/24/2020 03:01:28 PM EST [facility] NT INFORMATIONPatient MRN Name Date of Age Gend*PT [id number] Hiral Ferreira 1960 59 years M ---PT Location Admission Date/Time Visit ID Attending Provider --- --- --- --- EPI ID CSN Admitting Provider [id number] ---Addended by: ISAC JONES on: 02/24/2020 03:01 PM Modules accepted: Orders, SmartSet Name Value Range Interpretation Code Description Data Debbie rce(s) Supporting Document(s) ID Date Data Source [id number] 02/24/2020 02:49:19 PM EST [facility] NT INFORMATIONPatient MRN Name Date of Age Gend*PT [id number] Hiral Ferreira 1960 59 years M HOPPT Location Admission Date/Time Visit ID Attending ProviderCV-16 02/24/20 0614 --- --- EPI ID CSN Admitting Provider [id number] Marla Marino MD([id number])Cardiothoracic Surgery ConsultMichaeelvie Smith: [phone] for consult: aortic valve stenosisAssessment/Plan:Active Problems: Peripheral [...] moderate (CAROLA 1.3cm2, mean gradient 23mmHg) - [facility] Echocardiogram 01/08/2016 Normal LV size with [...] Smoker Types: Cigarettes Last attempt to quit: 2019 Years since quittin.0 Smokeless tobacco: Never Used [...] on phone: None Gets together: None Attends pentecostal service: None Active member of club or [...] Name Value Range Interpretation Code Description [facility] Supporting Document(s) ID Date Data Source [id number] 02/24/2020 10:13:33 AM EST [facility] Name Value Range Interpretation Code Description Data [facility](s) Supporting Document(s) &PDF [facility] KITWRw6bIsOZEsHt60/OFFciCEWcn4UfWBwjHLb1OFanLNEwL7WlnUjpVHxKD2TOYchZFSNOSCPSIK5y oRX [file] ICAgICAgICAgICAgICAgICAgICAgICAgICAgICAgIC NrMCCnEWAlHTQjQUEtTZFgHCNiRANmDQFpAC9JMTBsUJMaXZUgXEUsKJMuQKNaLWXqHDPlGBUiLIVuBN AgICAgICAgICAgICAgICAgICAgICAgICAgICAgICAgICAgICAgICAgICAgICAgICAgICAgICAgICAgIC LxHJOwOFLsUB8JGEPjXMDjZROgRPNpSJHzARPbWEMi ICAgICAgICAgICAgICAgICAgICAgICAgICAgICAgICAgICAgICAgICAgICAgICAgICAgICAgICAgICAg OFVfZIHdBEInMZXbEESaQGLtWW0YIVCfMSLnTHArEYJbUAQbXXFaKYYuGKReAUMyKPBnEAYpZKFiCHDm ICAgICAgICAgICAgICAgICAgICAgICAgICAgICAgIC DyYLZnEVSiAUSgAZMxTBNvRGZwDUIhXVGwHOIuFV4AWRIdHOTcHZHqXEVpNYHnKKQjUDCxQVIgVYLwPG AgICAgICAgICAgICAgICAgICAgICAgICAgICAgICAgICAgICAgICAgICAgICAgICAgICAgICAgICAgIC NzPEAvQSKiYHMsUT4GBYUzMFMwOKXaKXUmVZVsMYMa ICAgICAgICAgICAgICAgICAgICAgICAgICAgICAgICAgICAgICAgICAgICAgICAgICAgICAgICAgICAg KMUsZUIqYELyNCZuWMPrUCXbAIIwRN9BYEKzPRThQUCnBUSmHEHmZMCuNDQsILWdFMKgHUOjUTLdTOYv ICAgICAgICAgICAgICAgICAgICAgICAgICAgICAgIC BeGLDxROXnLDJjPQTyKHWuVVZgGRFuRHBkQAKwIZOgZL0PJNHsVUAgHOYsZYBbLOJqFDOqTFCpHJRvKB AgICAgICAgICAgICAgICAgICAgICAgICAgICAgICAgICAgICAgICAgICAgICAgICAgICAgICAgICAgIC TvHBWbGOVzVDFnXEIuJS0BRFAtYHIrXUMaXNZpBXVh ICAgICAgICAgICAgICAgICAgICAgICAgICAgICAgICAgICAgICAgICAgICAgICAgICAgICAgICAgICAg UMScNQGgGVGeMOTkWPWuPSZxHFTkJPFxKQ5IOMSvGCHwPCQeWOTsJTPbRFZjOVAyBRVsLDQbQXFsMFQm ICAgICAgICAgICAgICAgICAgICAgICAgICAgICAgIC WnOVNgDZLeHHNwWFPgZSVtHJGxEAHsEIUcWZOjGZYtKIWyPB8ZMD37cSKhr2M7LUIuCS2pvzd/Pg0KDQ avfcBmuEUmCO3HWoNjKO0ysn1APnRsWP5xij8SSIgLHgToN4K5aFKgTPPlTDMTXnCbC44nFMyeCc09NS pkUMMlVkUzQPq3Aq4WFtNdZ6tjTXTyQkS3EODqIbR4 RMBnRoF4CKFjYuTyGMHaYGIoIT8SQSKpX993zlAxIT2TEf5BSkIwQK1ddq2QEmDpUYVnDsrYBez5RTno ID6MhWWmbZTdYoZpBYYAXxTkD5uyf3IxDhwdISTPHHixSW4Pe2UhyDWuFKu+Sx6HAP3xy9PoCVegJoOy EG2tls0WNHcHFgRzK8RokRlnXZzynPuiikZsSK5WKK LiIITcxUVzWEzsPAOGUS1OPBuoVQA7IgjnjtGwaBWgRVcjHG2WYDMwhiPzLqKzOFWQUYo+Wf6GPA6pg1 FeWXtoZXLeXD1ovd3HPKmSNdRgS6O2aPDrD8R9MXreSx9JPBPeGMAjMfJgVIUHWLgsBJ5MTY2rfyR0LX 3BrQPnHZMfSZQsoNFaWAn7U73buXBwONptZY3OQXC+ Krysta+Lk4TNGKbPFQfLFDmTiQfABZRGfGcP1KkQ0QTm1YkE5NmWA65sMfelgPeHMrbDW0QCI5yHKLiYLBL VH9CsIJjwU9uwmXqEyJoHPCTQnOvT76qgYAqUILwGEN1JODuXn3CGFNwO7OgkfKfgAliiiAiSAMzPXNF FD7GCLudayQhmNGasDkhNC93wXubJS7EUi7MHnCcFF 7hlg9DnWHkJr2JIQIeYQ6GMAOoNYXhSNQfCBF2XDYnSpRrJDfrYGOuOLIcMUN2AIAkSQVfKY1GQsKbJX XxQIS1XASeBRZmFLGqyn3BCMJeMRD7MXgfGOKcZWEbDQOtGTwbFBBiMNSfFVyeDMEzYSEjBG1VKzShKE XjWXGhGqvmMVCyMKGalq1XREHiQXOdFiVbXDBiDQGr HJLxQDpwCVStEHU1FCnyVYLsPPLvVO6OFqEeKSMhQJOvMkFgJFPjWTYniv6CMTVrILXtJql5TsWbWKLw WUEzFCihOGOpRVH4GDDoMWJfOWEsHK6FBbUjCXCzCOprKdifDCGqUQTypk1OACTxRFXiKEQxDOIkHONz SGAdASgcUSSgZFI4Edy4QQQqWCEfWP7WRkQtBOXpTL i5ZBWuMEPcVHItqs0CODEiHFMsHUj2GZCoVIWwJTPhAXnwYRQuBWObUeRcZGDiPBHhCF6XIgVdJRUiYU F4QvOdHQKdXLBjzh7WVJNvMNCqCZIfPsImSZYjKDWjSDyuIQNuDYV5NTB9VRTrATFbSG9YRwQeTLUeKJ V8FqHqTTOvSPWhtx2BBRNpTHScIeU5WHMlUDUfGPWe WWwvGDJoVUP9JJTsLJRbMXLtAM4TQtOeWMImAmdvGKAgYFYxHBAgnx2HHEFoUNW7Vyu4VnNsCWNxLXQo FHpyXNZzMSR5JkxiCRFiVVHfOG2MSxJqEXWaJIu6YumeUDUqALFhnr8UHEOnBOO1HVl9DYWmEIVwLWCs ZTllWTJiCUC3NKw0YWPqOQOxQV6UMhAoFLfiEUEWDt r3BOkgX7g2WHSwQU7LV6Kpr7SmJoktEUAAYEpuRE5sofTzZIAxZu6MS3oSPxm1Q4K2JhL4MOS5CFjaQU j5BUL7TmvrFMAdFYYnZ5P2PZ6xAFy0KCjlPnfwJcCpOhB1GVg2MCI8XFDxBbAuPFIoPjmmJdOoFS6DKx 2WDvJ4NQL8rAIkXq0UQEfdRGIPMdKbSD8JXBt= ID Date Data Source [id number] 02/24/2020 06:53:35 AM EST [facility] Name Value Range Interpretation Code Description Data Debbie rce(s) Supporting Document(s) EKG [facility] FSVMKq5aGdXNRvZlx5CeLdZvXBRoAU4vxiu4M0I4eTQwK3NinRTtb7pxO3XrR9DlMZHcPYJQEA4ZsXBi jb2 [file] ++decorating consultant/P+/nhC/e1wBWzorZagbu17Ew8+ligT90qe346nvD5yfwzZCOXOZPD+aqQJEO+VhDBfw1GGNBjf2 [file] zuJAT1Bw9NfuFuJBQcUQRPMv4Hg339CTTgCMTBRrn+XobgwUKsnYqkYTOMDWI5IIWKEVGMB6C= ID Date Data Source [id number] 02/24/2020 07:33:30 AM EST [facility] Name Value Range Interpretation Code Description Data Debbie rce(s) Supporting Document(s) SODIUM 137 mmol/L (136-145) [facility] POTASSIUM 4.5 mmol/L (3.6-5.2) [facility] SLIGHT HEMOLYSIS CHLORIDE 101 mmol/L (100-108) [facility] CO2 26 mmol/L (22-31) [facility] ANION GAP 10 mmol/L (7-16) [facility] UREA NITROGEN 14 mg/dL (7-24) [facility] CREATININE 0.94 mg/dL (0.80-1.30) [facility] BUN/CREAT RATIO 14.9 RATIO (10.0-20.0) [facility] GLUCOSE 106 mg/dL (70-99) H [facility] CALCIUM 9.2 mg/dL (8.4-10.2) [facility] GFR >60 ml/min/1.73m2 (>59) [facility] GFR ( AMER) >60 ml/min/1.73m2 (>59) [facility] GFR INTERPRETATION Lab [facility] [place] --NORMAL KIDNEY FUNCTION OR MILD DISEASE - GFR >OR= 60CHRONIC KIDNEY DISEASE - GFR 15 - 59RENAL FAILURE - GFR <15 Est. GFR calculation based on the MDRDstudy equation, which assumes a steadystate for creatinine. Est. GFR should notbe used for medication dosing. ID Date Data Source [id number] 02/24/2020 06:53:36 AM EST [facility] Name Value Range Interpretation Code Description Data Debbie rce(s) Supporting Document(s) WBC 7.4 10*3/uL (4.1-11.0) [facility] [place] RBC 3.68 10*6/uL (4.60-6.10) L [facility] HGB 9.7 g/dL (13.5-18.0) L [facility] HCT 29.1 % (41.0-53.0) [facility] PERFORMED AT [address] [place] [address] [address] [place] [id number] MCV 78.9 fL (80.0-95.0) L [facility] MCH 26.3 pg (27.0-32.0) L [facility] MCHC 33.3 g/dL (32.0-36.0) [facility] RDW 17.1 % (10.5-14.5) [facility] PLT 391 10*3/uL (150-450) [facility] MPV 6.3 fL (7.1-10.7) L [facility] ID Date Data Source [id number] 02/19/2020 10:00:00 AM EST [facility] Name Value Range Interpretation Code Description Data Debbie rce(s) Supporting Document(s) SARS coronavirus 2 RNA Not Detected [facility] This lab was ordered by [facility] and reported by [facility]. ID Date Data Source H PYLORI SERUM QUANT IGM 01/24/2020 12:00:00 AM EST eCW1 ([facility]) Name Value Range Interpretation Code Description Data Debbie rce(s) Supporting Document(s) <9.0 0.0-8.9 H PYLORI SERUM QUANT IGM eCW1 ([facility]) ID Date Data Source H PYLORI SERUM QUANT IGA 01/24/2020 12:00:00 AM EST eCW1 ([facility]) Name Value Range Interpretation Code Description Data Debbie rce(s) Supporting Document(s) <9.0 0.0-8.9 H PYLORI SERUM QUANT IGA eCW1 ([facility]) ID Date Data Source H PYLORI SERUM QUANT IgG REINALDO 01/24/2020 12:00:00 AM EST eCW1 ([facility]) Name Value Range Interpretation Code Description Data Debbie rce(s) Supporting Document(s) 0.50 0.00-0.79 H PYLORI SERUM QUANT IgG REINALDO eCW1 ([facility]) ID Date Data Source [id number] 01/18/2020 11:54:00 AM EST [facility] Name Value Range Interpretation Code Description Data Debbie rce(s) Supporting Document(s) SARS coronavirus 2 RNA [Presence] in Res piratory specimen by RAD with probe detection [facility] This lab was ordered by [facility] a nd reported by [facility]. ID Date Data Source DDIMER QUANT 01/17/2020 12:00:00 AM EST eCW1 ([facility]) Name Value Range Interpretation Code Description Data Debbie rce(s) Supporting Document(s) 1365.93 <500 D-DIMER QUANT eCW1 ([facility]) ID Date Data Source MAGNESIUM LEVEL 01/17/2020 12:00:00 AM EST eCW1 ([facility]) Name Value Range Interpretation Code Description Data Debbie rce(s) Supporting Document(s) 2.4 1.8-2.4 MAGNESIUM LEVEL eCW1 ([facility]) ID Date Data Source CARDIAC MARKER PANEL 01/17/2020 12:00:00 AM EST eCW1 ([facility]) Name Value Range Interpretation Code Description Data Debbie rce(s) Supporting Document(s) 124 39-308 CPK CREATINE PHOSPHOKINASE eCW 1 ([facility]) 1.9 <3.6 CK-MB VALUE MASS eCW1 ([facility]) < 0.02 < 0.10 TROPONIN I eCW1 ([facility]) 1.53 < OR =4 MB/CK RELATIVE INDEX eCW1 ([facility]) ID Date Data Source C REACTIVE PROTEIN QUANTITATIV (At [facility]) 12/09/2019 12:00 :00 AM EDT eCW1 ([facility]) Name Value Range Interpretation Code Description Data Debbie rce(s) Supporting Document(s) 0.37 0.00-0.30 C REACTIVE PROTEIN QUANTI TATIV eCW1 ([facility]) ID Date Data Source ERYTHROCYTE SEDIMENTATION RATE 12/09/2019 12:00:00 AM EDT eC W1 ([facility]) Name Value Range Interpretation Code Description Data Debbie rce(s) Supporting Document(s) 8 0-20 ERYTHROCYTE SEDIMENTATION RATE eCW1 ([facility]) Procedure Social History Code Duration Value Status Description Data Source(s ) Smoking 10/08/2020 12:00:00 AM EDT Former Smoker completed Former Smoker eCW1 ([facility]) Smoking 10/08/2020 12:00:00 AM EDT Former Smoker completed Former Smoker eCW1 ([facility]) Smoking 10/08/2020 12:00:00 AM EDT Former Smoker completed Former Smoker eCW1 ([facility]) Smoking 10/08/2020 12:00:00 AM EDT Former Smoker completed Former Smoker eCW1 ([facility]) Alcohol intake 09/17/2020 12:00:00 AM EDT Ex-drinker (finding) comp leted Ex- drinker (finding) [facility] Smoking 08/06/2020 12:00:00 AM EDT Former Smoker completed Former Smoker eCW1 ([facility]) Smoking 08/06/2020 12:00:00 AM EDT Former Smoker completed Former Smoker eCW1 ([facility]) Smoking 08/06/2020 12:00:00 AM EDT Former Smoker completed Former Smoker eCW1 ([facility]) Alcohol intake 06/14/2020 12:00:00 AM EDT Ex-drinker (finding) comp leted Ex- drinker (finding) [facility] Smoking 05/30/2020 12:00:00 AM EDT Former Smoker completed Former Smoker eCW1 ([facility]) Smoking 05/30/2020 12:00:00 AM EDT Former Smoker completed Former Smoker eCW1 ([facility]) Smoking 05/30/2020 12:00:00 AM EDT Former Smoker completed Former Smoker eCW1 ([facility]) Alcohol intake 05/16/2020 12:00:00 AM EDT Not Currently completed [facility] Cigarette pack-years 05/16/2020 12:00:00 AM EDT UNK completed [facility] Cigarettes smoked current (pack per day) - Reported 05/17/19 12:00:00 AM EDT UNK completed [facility] Smoking 05/16/2020 12:00:00 AM EDT Former smoker completed Former smoker [facility] Cigarette pack-years 05/03/2020 12:00:00 AM EDT UNK completed [facility] Cigarettes smoked current (pack per day) - Reported 05/04/19 12:00:00 AM EDT UNK completed [facility] Smoking 05/03/2020 12:00:00 AM EDT Former smoker completed Former smoker [facility] Alcohol intake 05/03/2020 12:00:00 AM EDT Yes completed [facility] Alcohol intake 04/27/2020 12:00:00 AM EDT Yes completed [facility] Cigarette pack-years 04/27/2020 12:00:00 AM EDT UNK completed [facility] Cigarettes smoked current (pack per day) - Reported 04/28/19 12:00:00 AM EDT UNK completed [facility] Smoking 04/27/2020 12:00:00 AM EDT Former smoker completed Former smoker [facility] Alcohol intake 04/16/2020 12:00:00 AM EST Yes completed [facility] Cigarette pack-years 04/16/2020 12:00:00 AM EST UNK completed [facility] Cigarettes smoked current (pack per day) - Reported 04/17/19 12:00:00 AM EST UNK completed [facility] Smoking 04/16/2020 12:00:00 AM EST Former smoker completed Former smoker [facility] Smoking 04/13/2020 12:00:00 AM EST Former Smoker completed Former Smoker eCW1 ([facility]) Alcohol intake 04/02/2020 12:00:00 AM EST Yes completed [facility] Cigarette pack-years 04/02/2020 12:00:00 AM EST UNK completed [facility] Cigarettes smoked current (pack per day) - Reported 04/02/19 12:00:00 AM EST UNK completed [facility] Smoking 04/02/2020 12:00:00 AM EST Former smoker completed Former smoker [facility] Alcohol intake 03/15/2020 12:00:00 AM EST Yes completed [facility] Smoking 03/15/2020 12:00:00 AM EST Former smoker completed Former smoker [facility] Alcohol intake 02/24/2020 12:00:00 AM EST Yes completed [facility] Smoking 02/24/2020 12:00:00 AM EST Former smoker completed Former smoker [facility] Smoking 02/20/2020 12:00:00 AM EST Former Smoker completed Former Smoker eCW1 ([facility]) Smoking 02/20/2020 12:00:00 AM EST Former Smoker completed Former Smoker eCW1 ([facility]) Smoking 02/20/2020 12:00:00 AM EST Former Smoker completed Former Smoker eCW1 ([facility]) Smoking 02/20/2020 12:00:00 AM EST Former Smoker completed Former Smoker eCW1 ([facility]) Tobacco use and exposure 02/09/2020 12:00:00 AM EST Never used co mpleted Never used [facility] Cigarette pack-years 02/09/2020 12:00:00 AM EST UNK completed [facility] Cigarettes smoked current (pack per day) - Reported 02/09/20 20 12:00:00 AM EST UNK completed [facility] Smoking 02/09/2020 12:00:00 AM EST Former smoker completed Former smoker [facility] Alcohol intake 02/09/2020 12:00:00 AM EST Yes completed [facility] Smoking 02/09/2020 12:00:00 AM EST Former smoker completed Former smoker [facility] Smoking 02/06/2020 12:00:00 AM EST Former Smoker completed Former Smoker eCW1 ([facility]) Smoking 02/06/2020 12:00:00 AM EST Former Smoker completed Former Smoker eCW1 ([facility]) Smoking 02/06/2020 12:00:00 AM EST Former Smoker completed Former Smoker eCW1 ([facility]) Smoking 02/06/2020 12:00:00 AM EST Former Smoker completed Former Smoker eCW1 ([facility]) Smoking 01/16/2020 12:00:00 AM EST Former Smoker completed Former Smoker eCW1 ([facility]) Smoking 01/16/2020 12:00:00 AM EST Former Smoker completed Former Smoker eCW1 ([facility]) Smoking 01/16/2020 12:00:00 AM EST Former Smoker completed Former Smoker eCW1 ([facility]) Smoking 01/16/2020 12:00:00 AM EST Former Smoker completed Former Smoker eCW1 ([facility]) Smoking 12/15/2019 12:00:00 AM EST Patient is a former smoker completed Patient is a former smoker MEDENT ([facility]) Smoking 12/09/2019 12:00:00 AM EDT Former Smoker completed Former Smoker eCW1 ([facility]) Smoking 12/09/2019 12:00:00 AM EDT Former Smoker completed Former Smoker eCW1 ([facility]) Smoking 12/09/2019 12:00:00 AM EDT Former Smoker completed Former Smoker eCW1 ([facility]) Vital Signs ID Date Data Source UNK Name Value Range Interpretation Code Description Data Source(s) Body weight 214.50 [lb_av] 214.50 [lb_av] MEDEN T ([facility]) Body mass index (BMI) [Ratio] 29.9 kg/m2 29.9 k g/m2 MEDENT ([facility]) [place] body weight 172 [lb_av] 172 [lb_av] MEDEN T ([facility]) Body weight 97.297 kg 97.297 kg [facility] ([facility]) Body surface area Derived from formula 2.17 m2 2.17 m2 [facility] ([facility]) Heart rate 78 /min 78 /min [facility] ([facility]) Body temperature 97.3 [degF] 97.3 [degF] MEDENT ([facility]) Body height 71 [in_i] 71 [in_i] MEDENT ([facility]) 5'11" Body weight 215 [lb_av] 215 [lb_av] eCW1 ([facility]) Body height [in_i] eCW1 ([facility]) Body mass index (BMI) [Ratio] 29.98 kg/m2 29.98 kg/m2 W1 ([facility]) Heart rate 71 /min 71 /min eCW1 ([facility]) Respiratory rate 18 /min 18 /min eCW1 ([facility]) Body temperature 95.4 [degF] 95.4 [degF] eCW1 ( [facility]) Systolic blood pressure 132 mm[Hg] 132 mm[Hg] e CW1 ([facility]) Diastolic blood pressure 68 mm[Hg] 68 mm[Hg] eCW1 ([facility]) Body weight 97.523 kg 97.523 kg [facility] Systolic blood pressure 138 mm[Hg] 138 mm[Hg] [facility] Diastolic blood pressure 88 mm[Hg] 88 mm[Hg] [facility] Heart rate 69 /min 69 /min [facility] Body height 180.3 cm 180.3 cm [facility] Body mass index (BMI) [Ratio] 29.99 kg/m2 29.99 kg/m2 [facility] Oxygen saturation in Arterial blood by Pulse oximetry 94 % 94 % [facility] Body weight 214 [lb_av] 214 [lb_av] eCW1 ([facility]) Body height [in_i] eCW1 ([facility]) Body mass index (BMI) [Ratio] 29.84 kg/m2 29.84 kg/m2 eCW1 ([facility]) Heart rate 75 /min 75 /min eCW1 ([facility]) Respiratory rate 18 /min 18 /min eCW1 ([facility]) Body temperature 97.5 [degF] 97.5 [degF] eCW1 ( [facility]) Systolic blood pressure 128 mm[Hg] 128 mm[Hg] e CW1 ([facility]) Diastolic blood pressure 82 mm[Hg] 82 mm[Hg] eCW1 ([facility]) Systolic blood pressure 162 mm[Hg] 162 mm[Hg] Meghan REBOLLAR ([facility] Body height 71 [in_i] 71 [in_i] MEDENT ([facility], ) 5'11" Body weight 206.12 [lb_av] 206.12 [lb_av] MEDEN T ([facility], ) Body mass index (BMI) [Ratio] 28.7 kg/m2 28.7 k g/m2 [facility] ([facility], ) [place] body weight 172 [lb_av] 172 [lb_av] MEDEN T ([facility], ) Body weight 93.498 kg 93.498 kg [facility] ([facility]) Body surface area Derived from formula 2.14 m2 2.14 m2 [facility] ([facility]) Diastolic blood pressure 88 mm[Hg] 88 mm[Hg] [facility] ([facility]) Body height 71 [in_i] 71 [in_i] [facility] ([facility]) 5'11" Body weight 206.12 [lb_av] 206.12 [lb_av] MEDEN T ([facility]) Body mass index (BMI) [Ratio] 28.7 kg/m2 28.7 k g/m2 [facility] ([facility]) [place] body weight 172 [lb_av] 172 [lb_av] MEDEN T ([facility]) Body surface area Derived from formula 2.14 m2 2.14 m2 [facility] ([facility]) Body weight 93.498 kg 93.498 kg [facility] ([facility]) Oxygen saturation in Arterial blood by Pulse oximetry 96 % 96 % [facility] Systolic blood pressure 130 mm[Hg] 130 mm[Hg] [facility] Diastolic blood pressure 78 mm[Hg] 78 mm[Hg] [facility] Heart rate 71 /min 71 /min [facility] Body height 180.3 cm 180.3 cm [facility] Body weight 96.616 kg 96.616 kg [facility] Body mass index (BMI) [Ratio] 29.71 kg/m2 29.71 kg/m2 [facility] Body weight 208 [lb_av] 208 [lb_av] eCW1 ([facility]) Body height [in_i] eCW1 ([facility]) Body mass index (BMI) [Ratio] 29.01 kg/m2 29.01 kg/m2 W1 ([facility]) Heart rate 86 /min 86 /min eCW1 ([facility]) Respiratory rate 20 /min 20 /min eCW1 ([facility]) Body temperature 97.3 [degF] 97.3 [degF] eCW1 ( [facility]) Systolic blood pressure 130 mm[Hg] 130 mm[Hg] e CW1 ([facility]) Diastolic blood pressure 80 mm[Hg] 80 mm[Hg] eCW1 ([facility]) Diastolic blood pressure 76 mm[Hg] 76 mm[Hg] [facility] Systolic blood pressure 126 mm[Hg] 126 mm[Hg] [facility] Heart rate 84 /min 84 /min [facility] Body height 180.3 cm 180.3 cm [facility] Body weight 92.08 kg 92.08 kg [facility] Body mass index (BMI) [Ratio] 28.31 kg/m2 28.31 kg/m2 [facility] Oxygen saturation in Arterial blood by Pulse oximetry 96 % 96 % [facility] Systolic blood pressure 141 mm[Hg] 141 mm[Hg] [facility] Diastolic blood pressure 71 mm[Hg] 71 mm[Hg] [facility] Heart rate 89 /min 89 /min [facility] Body temperature 36.94 Ellie 36.94 Ellie [facility] Respiratory rate 18 /min 18 /min [facility] Oxygen saturation in Arterial blood by Pulse oximetry 97 % 97 % [facility] Body weight 98 kg 98 kg [facility] Body mass index (BMI) [Ratio] 30.13 kg/m2 30.13 kg/m2 [facility] Body height 180.3 cm 180.3 cm [facility] Systolic blood pressure 136 mm[Hg] 136 mm[Hg] [facility] Diastolic blood pressure 69 mm[Hg] 69 mm[Hg] [facility] Heart rate 70 /min 70 /min [facility] Body height 180.3 cm 180.3 cm [facility] Body weight 97.569 kg 97.569 kg [facility] Body mass index (BMI) [Ratio] 30.00 kg/m2 30.00 kg/m2 [facility] Oxygen saturation in Arterial blood by Pulse oximetry 97 % 97 % [facility] Systolic blood pressure 152 mm[Hg] 152 mm[Hg] [facility] Diastolic blood pressure 78 mm[Hg] 78 mm[Hg] [facility] Heart rate 88 /min 88 /min [facility] Body height 177.8 cm 177.8 cm [facility] Body weight 97.523 kg 97.523 kg [facility] Body mass index (BMI) [Ratio] 30.85 kg/m2 30.85 kg/m2 [facility] Oxygen saturation in Arterial blood by Pulse oximetry 95 % 95 % [facility] Body weight 211.0 [lb_av] 211.0 [lb_av] eCW1 ([facility]) Body height [in_i] eCW1 ([facility]) Body mass index (BMI) [Ratio] 29.43 kg/m2 29.43 kg/m2 [facility] ([facility]) Heart rate 99 /min 99 /min W1 ([facility]) Respiratory rate 20 /min 20 /min W1 ([facility]) Body temperature 98.1 [degF] 98.1 [degF] eCW1 ( [facility]) Systolic blood pressure 122 mm[Hg] 122 mm[Hg] e CW1 ([facility]) Diastolic blood pressure 68 mm[Hg] 68 mm[Hg] eCW1 ([facility]) Systolic blood pressure 151 mm[Hg] 151 mm[Hg] M EDENT ([facility] Diastolic blood pressure 73 mm[Hg] 73 mm[Hg] MEDENT ([facility] Body height 71 [in_i] 71 [in_i] MEDENT ([facility] 5'11" Body weight 214.00 [lb_av] 214.00 [lb_av] MEDEN T ([facility] [place] body weight 172 [lb_av] 172 [lb_av] MEDEN T ([facility]) Body mass index (BMI) [Ratio] 29.8 kg/m2 29.8 k g/m2 MEDENT ([facility]) Body weight 97.070 kg 97.070 kg [facility] ([facility]) Body surface area Derived from formula 2.17 m2 2.17 m2 [facility] ([facility]) Systolic blood pressure 130 mm[Hg] 130 mm[Hg] [facility] Diastolic blood pressure 66 mm[Hg] 66 mm[Hg] [facility] Heart rate 75 /min 75 /min [facility] Body height 180.3 cm 180.3 cm [facility] Body weight 99.338 kg 99.338 kg [facility] Body mass index (BMI) [Ratio] 30.54 kg/m2 30.54 kg/m2 [facility] Oxygen saturation in Arterial blood by Pulse oximetry 96 % 96 % [facility] Systolic blood pressure 137 mm[Hg] 137 mm[Hg] [facility] Diastolic blood pressure 69 mm[Hg] 69 mm[Hg] [facility] Heart rate 86 /min 86 /min [facility] Body temperature 36.5 Ellie 36.5 Ellie [facility] Respiratory rate 16 /min 16 /min [facility] Oxygen saturation in Arterial blood by Pulse oximetry 98 % 98 % [facility] Body height 180.3 cm 180.3 cm [facility] Body weight 94.3 kg 94.3 kg [facility] Body mass index (BMI) [Ratio] 29.00 kg/m2 29.00 kg/m2 [facility] Body weight 213 [lb_av] 213 [lb_av] eCW1 ([facility]) Body height [in_i] eCW1 ([facility]) Body mass index (BMI) [Ratio] 29.70 kg/m2 29.70 kg/m2 eCW1 ([facility]) Heart rate 97 /min 97 /min eCW1 ([facility]) Respiratory rate 18 /min 18 /min eCW1 ([facility]) Body temperature 98.0 [degF] 98.0 [degF] eCW1 ( [facility]) Systolic blood pressure 128 mm[Hg] 128 mm[Hg] e CW1 ([facility]) Diastolic blood pressure 78 mm[Hg] 78 mm[Hg] eCW1 ([facility]) Systolic blood pressure 118 mm[Hg] 118 mm[Hg] [facility] Diastolic blood pressure 62 mm[Hg] 62 mm[Hg] [facility] Heart rate 89 /min 89 /min [facility] Body height 180.3 cm 180.3 cm [facility] Body weight 96.616 kg 96.616 kg [facility] Body mass index (BMI) [Ratio] 29.71 kg/m2 29.71 kg/m2 [facility] Oxygen saturation in Arterial blood by Pulse oximetry 96 % 96 % [facility] Body weight 211.4 [lb_av] 211.4 [lb_av] W1 ([facility]) Body height [in_i] W1 ([facility]) Body mass index (BMI) [Ratio] 29.48 kg/m2 29.48 kg/m2 W1 ([facility]) Heart rate 105 /min 105 /min eCW1 ([facility]) Respiratory rate 18 /min 18 /min eCW1 ([facility]) Body temperature 97.7 [degF] 97.7 [degF] eCW1 ( [facility]) Systolic blood pressure 130 mm[Hg] 130 mm[Hg] e CW1 ([facility]) Diastolic blood pressure 70 mm[Hg] 70 mm[Hg] eCW1 ([facility]) Body weight 214.2 [lb_av] 214.2 [lb_av] eCW1 ([facility]) Body height [in_i] eCW1 ([facility]) Body mass index (BMI) [Ratio] 29.87 kg/m2 29.87 kg/m2 eCW1 ([facility]) Heart rate 103 /min 103 /min eCW1 ([facility]) Respiratory rate 18 /min 18 /min eCW1 ([facility]) Body temperature 98.6 [degF] 98.6 [degF] eCW1 ( [facility]) Systolic blood pressure 150 mm[Hg] 150 mm[Hg] e CW1 ([facility]) Diastolic blood pressure 70 mm[Hg] 70 mm[Hg] eCW1 ([facility]) Systolic blood pressure 136 mm[Hg] 136 mm[Hg] M EDENT ([facility], ) L arm 133/77 Diastolic blood pressure 82 mm[Hg] 82 mm[Hg] MEDENT ([facility], ) L arm 133/77 Body height 71 [in_i] 71 [in_i] [facility] 5'11" [place] body weight 172 [lb_av] 172 [lb_av] MEDEN T ([facility]) Body weight 96.674 kg 96.674 kg [facility] ([facility]) Body weight 213.12 [lb_av] 213.12 [lb_av] MEDEN T ([facility]) Body surface area Derived from formula 2.17 m2 2.17 m2 [facility] ([facility]) Body mass index (BMI) [Ratio] 29.7 kg/m2 29.7 k g/m2 [facility] ([facility]) Body weight 213.0 [lb_av] 213.0 [lb_av] eCW1 ([facility]) Body height [in_i] eCW1 ([facility]) Body mass index (BMI) [Ratio] 29.70 kg/m2 29.70 kg/m2 W1 ([facility]) Heart rate 97 /min 97 /min eCW1 ([facility]) Respiratory rate 18 /min 18 /min eCW1 ([facility]) Body temperature 97.4 [degF] 97.4 [degF] eCW1 ( [facility]) Systolic blood pressure 162 mm[Hg] 162 mm[Hg] e CW1 ([facility]) Diastolic blood pressure 78 mm[Hg] 78 mm[Hg] eCW1 ([facility]) Patient Treatment Plan of Care Planned Activity Planned Date Details Description Data Source (s) atorvastatin 80 MG Oral Tablet 10/08/2020 12:00:00 AM EDT eCW1 ([facility]) Nortriptyline 25 MG Oral Capsule 10/08/2020 12:00:00 AM EDT eCW1 ([facility]) atorvastatin 80 MG Oral Tablet 10/08/2020 12:00:00 AM EDT eCW1 ([facility]) Nortriptyline 25 MG Oral Capsule 10/08/2020 12:00:00 AM EDT eCW1 ([facility]) atorvastatin 80 MG Oral Tablet 10/08/2020 12:00:00 AM EDT eCW1 ([facility]) Nortriptyline 25 MG Oral Capsule 10/08/2020 12:00:00 AM EDT eCW1 ([facility]) atorvastatin 80 MG Oral Tablet 10/08/2020 12:00:00 AM EDT eCW1 ([facility]) Nortriptyline 25 MG Oral Capsule 10/08/2020 12:00:00 AM EDT eCW1 ([facility]) atorvastatin 40 MG Oral Tablet 08/29/2020 12:00:00 AM EDT [facility] clopidogrel 75 MG Oral Tablet 08/24/2020 12:00:00 AM EDT [facility] Acetaminophen 325 MG Oral Tablet 08/06/2020 12:00:00 AM EDT eCW1 ([facility]) Acetaminophen 325 MG Oral Tablet 08/06/2020 12:00:00 AM EDT eCW1 ([facility]) Acetaminophen 325 MG Oral Tablet 08/06/2020 12:00:00 AM EDT eCW1 ([facility]) Ascorbic Acid 500 MG Oral Tablet 05/07/2020 12:00:00 AM EDT [facility] Daily Izabela (THERAGRAN) per tablet 05/07/2020 12:00:00 AM EDT [facility] Docusate Sodium 100 MG Oral Capsule 05/07/2020 12:00:00 AM EDT [facility] Folic Acid 1 MG Oral Tablet 05/07/2020 12:00:00 AM EDT [facility] Furosemide 40 MG Oral Tablet 05/07/2020 12:00:00 AM EDT [facility] atorvastatin 40 MG Oral Tablet 05/07/2020 12:00:00 AM EDT [facility] Acetaminophen 325 MG / Oxycodone Hydrochloride 5 MG Or al Tablet 05/06/2020 12:00:00 AM EDT [facility] ferrous gluconate 324 MG Oral Tablet 05/06/2020 12:00:00 AM EDT [facility] Metoprolol Tartrate 25 MG Oral Tablet 05/06/2020 12:00:00 AM EDT [facility] potassium chloride SA (K-[id number]-CON) 20 MEQ tablet 021 12:00:00 AM EDT [facility] Diclofenac Sodium 0.01 MG/MG Topical Gel 04/13/2020 12:00:00 AM EST [facility] Lisinopril 40 MG Oral Tablet 02/26/2020 12:00:00 AM EST [facility] Chlorthalidone 25 MG Oral Tablet 02/26/2020 12:00:00 AM EST [facility] Lisinopril 40 MG Oral Tablet 01/18/2020 12:00:00 AM EST [facility] Chlorthalidone 25 MG Oral Tablet 01/18/2020 12:00:00 AM EST [facility] Citalopram 40 MG Oral Tablet 01/18/2020 12:00:00 AM EST [facility] Sucralfate 1000 MG Oral Tablet 01/18/2020 12:00:00 AM EST [facility] Tamsulosin hydrochloride 0.4 MG Oral Capsule 01/18/2020 12:00:00 AM EST [facility] Sucralfate 1000 MG Oral Tablet [Carafate] 01/17/2020 12:00:00 AM ES T eCW1 ([facility]) Sucralfate 1000 MG Oral Tablet [Carafate] 01/17/2020 12:00:00 AM ES T eCW1 ([facility]) Sucralfate 1000 MG Oral Tablet [Carafate] 01/17/2020 12:00:00 AM ES T eCW1 ([facility]) Sucralfate 1000 MG Oral Tablet [Carafate] 01/17/2020 12:00:00 AM ES T eCW1 ([facility]) Mirtazapine 7.5 MG Oral Tablet 01/16/2020 12:00:00 AM EST eCW1 ([facility]) Mirtazapine 7.5 MG Oral Tablet 01/16/2020 12:00:00 AM EST [facility] Mirtazapine 7.5 MG Oral Tablet 01/16/2020 12:00:00 AM EST eCW1 ([facility]) Mirtazapine 7.5 MG Oral Tablet 01/16/2020 12:00:00 AM EST eCW1 ([facility]) Mirtazapine 7.5 MG Oral Tablet 01/16/2020 12:00:00 AM EST eCW1 ([facility]) atorvastatin 40 MG Oral Tablet 12/09/2019 12:00:00 AM EDT [facility] Tamsulosin hydrochloride 0.4 MG Oral Capsule [Flomax] 12/09/2019 12:00:00 AM EDT eCW1 ([facility]) Tamsulosin hydrochloride 0.4 MG Oral Capsule [Flomax] 12/09/2019 12:00:00 AM EDT eCW1 ([facility]) Nortriptyline 25 MG Oral Capsule 12/09/2019 12:00:00 AM EDT [facility] Tamsulosin hydrochloride 0.4 MG Oral Capsule [Flomax] 12/09/2019 12:00:00 AM EDT eCW1 ([facility]) atorvastatin 80 MG Oral Tablet 10/18/2019 12:00:00 AM EDT [facility] Lidocaine Hydrochloride 40 MG/ML Topical Cream 02/04/2018 12:00:00 AM EST [facility] Multiple Vitamin tablet 02/04/2018 12:00:00 AM EST [facility] clopidogrel 75 MG Oral Tablet 01/30/2015 12:00:00 AM EST [facility] Acetaminophen 325 MG / Hydrocodone Bitartrate 10 MG Or al Tablet 01/30/2015 12:00:00 AM [facility]
[2020-12-12 18:15] LABS: BASO # 0.1 10^3/uL (0.0-0.2); BASO % 0.5 % (0.0-1.0); EOS # 0.1 10^3/uL (0.0-0.5); EOS % 0.7 % (0.0-3.0); HEMATOCRIT 42.3 % (42.0-52.0); HEMOGLOBIN 14.7 g/dl (13.5-17.5); LYMPH # 2.4 10^3/uL (1.5-5.0); LYMPH % 21.9 % (24.0-44.0); MEAN CORPUSCULAR HEMOGLOBIN 31.1 pg (27.0-33.0); MEAN CORPUSCULAR HGB CONC 34.8 g/dl (32.0-36.5); MEAN CORPUSCULAR VOLUME 89.6 fl (80.0-96.0); MONO # 1.2 10^3/uL (0.0-0.8); MONO % 11.1 % (2.0-8.0); NEUTROPHILS # 7.1 10^3/uL (1.5-8.5); NEUTROPHILS % 65.2 % (36.0-66.0); PLATELET COUNT, AUTOMATED 343 10^3/uL (150-450); RED BLOOD COUNT 4.72 10^6/uL (4.30-6.10); WHITE BLOOD COUNT 10.8 10^3/uL (4.0-10.0)
--- OUTSIDE RECORDS SUMMARY | 2020-12-12 18:32 | CCD ---
Author Author [facility] Organization [facility] Address Unknown Phone Unavailable Care Team Providers Care Accounts Payable Coordinator Name Role Phone Elke ADRIAN MD Unavailable [...] R Rob PA Unavailable Unavailable Swatsworth, R Orb PA Unavailable Unavailable Swatsworth, R Rob PA [...] Tyson MD Unavailable Unavailable Detor, M Isac PUG MILL OPERATOR HELPER Unavailable Unavailable Detor, M Isac PUG MILL OPERATOR HELPER Unavailable Unavailable Detor, M Isac PUG MILL OPERATOR HELPER Unavailable Unavailable Detor, M Isac PUG MILL OPERATOR HELPER Unavailable Unavailable Detor, M Isac PUG MILL OPERATOR HELPER Unavailable Unavailable Detor, M Isac PUG MILL OPERATOR HELPER Unavailable Unavailable Detor, M Isac PUG MILL OPERATOR HELPER Unavailable Unavailable Detor, M Isac PUG MILL OPERATOR HELPER Unavailable Unavailable Detor, M Isac PUG MILL OPERATOR HELPER Unavailable Unavailable Detor, M Isac PUG MILL OPERATOR HELPER Unavailable Unavailable Detor, M Isac PUG MILL OPERATOR HELPER Unavailable Unavailable Detor, M Isac PUG MILL OPERATOR HELPER Unavailable Unavailable Detor, M Isac PUG MILL OPERATOR HELPER Unavailable Unavailable Detor, M Isac PUG MILL OPERATOR HELPER Unavailable Unavailable Detor, M Isac PUG MILL OPERATOR HELPER Unavailable Unavailable Detor, M Isac PUG MILL OPERATOR HELPER Unavailable Unavailable Detor, M Isac PUG MILL OPERATOR HELPER Unavailable Unavailable Detor, M Isac PUG MILL OPERATOR HELPER Unavailable Unavailable Detor, M Isac PUG MILL OPERATOR HELPER Unavailable Unavailable Detor, M Isac PUG MILL OPERATOR HELPER Unavailable Unavailable Detor, M Isac PUG MILL OPERATOR HELPER Unavailable Unavailable Detor, M Isac PUG MILL OPERATOR HELPER Unavailable Unavailable Detor, M Isac PUG MILL OPERATOR HELPER Unavailable Unavailable Detor, M Isac PUG MILL OPERATOR HELPER Unavailable Unavailable Detor, M Isac PUG MILL OPERATOR HELPER Unavailable Unavailable Detor, M Isac PUG MILL OPERATOR HELPER Unavailable Unavailable Detor, M Isac PUG MILL OPERATOR HELPER Unavailable Unavailable Detor, M Isac PUG MILL OPERATOR HELPER Unavailable Unavailable Detor, M Isac PUG MILL OPERATOR HELPER Unavailable Unavailable Detor, M Isac PUG MILL OPERATOR HELPER Unavailable Unavailable Detor, M Isac PUG MILL OPERATOR HELPER Unavailable Unavailable Detor, M Isac PUG MILL OPERATOR HELPER Unavailable Unavailable Detor, M Isac PUG MILL OPERATOR HELPER Unavailable Unavailable Detor, M Isac PUG MILL OPERATOR HELPER Unavailable Unavailable Detor, M Isac PUG MILL OPERATOR HELPER Unavailable Unavailable Detor, M Isac PUG MILL OPERATOR HELPER Unavailable Unavailable Detor, M Isac PUG MILL OPERATOR HELPER Unavailable Unavailable [place], V ZARINA PA-C Unavailable Unavailable [place], V ZARINA PA-C Unavailable Unavailable Otto, V ZARINA PA-C Unavailable Unavailable Otto, V ZARINA PA-C Unavailable Unavailable [place], V ZARINA PA-C Unavailable Unavailable Otto, V ZARINA PA-C Unavailable Unavailable [place], V ZARINA PA-C Unavailable Unavailable [place], V ZARINA PA-C Unavailable Unavailable [place], V ZARINA PA-C Unavailable Unavailable [place], V ZARINA PA-C Unavailable Unavailable [place], V ZARINA PA-C Unavailable Unavailable [place], V ZARINA PA-C Unavailable Unavailable Otto, V ZARINA PA-C Unavailable Unavailable [place], V ZARINA PA-C Unavailable Unavailable Mello, L [...] Unavailable Mello, L Marianna RPA Unavailable Unavailable Mlelo, L Marianna RPA Unavailable Unavailable Mello, L [...] Marianna RPA Unavailable Unavailable Ghassan, L Jo-Ann TALENT BUYER Unavailable Unavailable Ghassan, L Jo-Ann TALENT BUYER Unavailable Unavailable Ghassan, L Jo-Ann TALENT BUYER Unavailable Unavailable Ghassan, L Jo-Ann TALENT BUYER Unavailable Unavailable Ghassan, L Jo-Ann TALENT BUYER Unavailable Unavailable Ghassan, L Jo-Ann TALENT BUYER Unavailable Unavailable Ghassan, L Jo-Ann TALENT BUYER Unavailable Unavailable Ghassan, L Jo-Ann TALENT BUYER Unavailable Unavailable Ghassan, L Jo-Ann TALENT BUYER Unavailable Unavailable Ghassan, L Jo-Ann TALENT BUYER Unavailable Unavailable Ghassan, L Jo-Ann TALENT BUYER Unavailable Unavailable Ghassan, L Jo-Ann TALENT BUYER Unavailable Unavailable Ghassan, L Jo-Ann TALENT BUYER Unavailable Unavailable Ghassan, L Jo-Ann TALENT BUYER Unavailable Unavailable Ghassan, L Jo-Ann TALENT BUYER Unavailable Unavailable Ghassan, L Jo-Ann TALENT BUYER Unavailable Unavailable Ghassan, L Jo-Ann TALENT BUYER Unavailable Unavailable Ghassan, L Jo-Ann TALENT BUYER Unavailable Unavailable Oneil Genao MD Unavailable Unavailable [...] Unavailable Unavailable Oneil Genao MD Unavailable Unavailable nOeil Genao MD Unavailable Unavailable Oneil Genao MD [...] Villaseñortech Unavailable Unavailable Janell Villaseñortech Unavailable Unavailable Loyd [...] is protected by Article 27-F of the [facility] Public Health law. If you continue you may have access to information: Regarding HIV / AIDS; Provided by facilities licensed or operated by the [facility] Office of Mental Health; or Provided by the [facility] Office for People With Developmental Disabilities. If such information is present, then the following [facility] mandated warning applies: This information has [...] ([facility] Unknown Unknown Problem MED[facility] ([facility], ) maternal grandfather/father Unknown Unknown Problem [facility] ([facility] Encounters Encounter Providers Location Date Indications Data Source(s ) Unknown [address] [facility] [id number] 11/23/2020 12:00:00 AM EDT eCW1 ([facility]) Unknown [address] [facility] [id number] 11/23/2020 12:00:00 AM EDT eCW1 ([facility]) Outpatient Attender: ROVERTO Alejandra/Deloris/Magdy/Machelle martinez 10/22/2020 02:00:00 PM EDT [facility] ([facility] ) Outpatient [address] [facility] [id number] 10/08/2020 12:00:00 AM EDT eCW1 ([facility]) Unknown [address] [facility] [place] [id number] 10/08/2020 12:00:00 AM EDT eCW1 ([facility]) Unknown [address] [facility] [address] [address] 09/19/2020 12:00:00 AM EDT eCW1 ([facility]) Outpatient Attender: ZARINA CHANG 10/2020 12:00:00 AM EDT - 09/17/2020 01:01:54 PM EDT [facility] [place] [address] [facility] [place] [address] 08/24/2020 12:00:00 AM EDT eCW1 ([facility]) [place] [address] [facility] [address] 08/06/2020 12:00:00 AM EDT eCW1 ([facility]) Outpatient Attender: Marbella Alejandra/Deloris/Magdy/ Abdiel 06/21/2020 10:45:00 AM EDT [facility] ([facility]) Outpatient Attender: ZARINA VELAZQUEZ.PARK 07/2020 10:02:28 AM EDT [facility] Unknown [address] [facility] [place] [address] 06/14/2020 12:00:00 AM EDT eCW1 ([facility]) [place] [address] [facility] [place] [address] 05/31/2020 12:00:00 AM EDT eCW1 ([facility]) Office Visit, Est Pt., Level 4 [address] [place] [address] 05/30/2020 12:00:00 AM EDT eCW1 ([facility]) Outpatient Attender: ZARINA SLOANSJFacundo.PARK 12:00:00 AM EDT [facility] Outpatient Attender: Jo-Ann HIGUERA.TSERING 05/19/19 12:00:00 AM EDT - 05/18/2020 10:52:53 AM EDT [facility] Outpatient Attender: ZARINA MEJIA-SJP.PARK 08/2020 12:00:00 AM EDT - 05/16/2020 12:24:28 PM EDT [facility] Inpatient Admitter: Oneil Genao MDReferrer: VANESSA Dixon ES1-SJ.ANES 05/02/2020 07:53:31 AM EDT [facility] Inpatient Attender: Oneil Genao MDAdmitter: Oneil lee MD [id number] 05/02/2020 05:24:00 AM EDT - 05/06/2020 04:19:00 PM EDT [facility] Patient discharged. Outpatient Attender: Oneil Genao MDReferrer: Oneil lee MD MOB-MOB.PAT 04/27/2020 10:16:49 AM EDT - 04/27/2020 11:35:52 AM EDT [facility] Outpatient Referrer: Oneil Genao MD MOB-MOB.PAT 04/27 09:32:34 AM EDT - 04/27/2020 09:32:40 AM EDT [facility] Outpatient Attender: ZARINA BURGERP.PARK-SJP.PRAK 09/2020 12:00:00 AM EST - 04/16/2020 01:40:49 PM EST [facility] Outpatient [address] [id number] 04/13/2020 12:00:00 AM EST eCW1 ([facility]) Outpatient Attender: TISHA Alejandra/Deloris/Magdy/Cas bansal 04/04/2020 02:00:00 PM EST [facility] ([facility]) Outpatient Attender: Oneil Genao MDReferrer: Oneil lee MD ES1-SJ.PL 04/02/2020 12:26:00 PM EST - 04/02/2020 11:59:00 PM EST [facility] Patient discharged. Outpatient Attender: Oneil Genao MDReferrer: Oneil lee MD MOB-MOB.PAT 04/02/2020 10:16:54 AM EST - 04/02/2020 11:35:56 AM EST [facility] Outpatient Referrer: Oneil Genao MD MOB-MOB.PAT 04/02 09:34:30 AM EST - 04/02/2020 09:34:36 AM [facility] Outpatient Attender: ZARINA GUIDRY.PARK-SJP.PAKR 05/2020 12:00:00 AM EST - 03/15/2020 10:50:17 AM EST [facility] Outpatient Referrer: Isac MEZA 03/12/2020 03:49:52 P [facility] Outpatient Referrer: Isac NAVARROP 03/12/2020 03:07:41 P M [facility] MOCAM-MOCAM 02/24/2020 03:01:[address] [facility] Outpatient Attender: Marla Marino MDA dmitter: Marla Marino MDReferrer: Loyd Villaseñor MD ES1-SJ.CVAU 02/24/2020 06:14:00 AM EST - 02/24/2020 12:35:00 PM EST [facility] Patient discharged. Outpatient [address] [facility] [address] [id number] 02/20/2020 12:00:00 AM EST eCW1 ([facility]) Unknown [facility] [facility] [id number] 02/20/2020 12:00:00 AM EST eCW1 ([facility]) Unknown [address] [facility] [id number] 02/20/2020 12:00:00 AM EST eCW1 ([facility]) Unknown [address] [facility] [address] [address] 02/16/2020 12:00:00 AM EST eCW1 ([facility]) Unknown [address] [facility] [id number] 02/14/2020 12:00:00 AM EST eCW1 ([facility]) Outpatient Referrer: Loyd ORTIZPARK-SJP.PARK 05/2020 12:00:00 AM EST - 02/13/2020 12:12:14 PM EST [facility] Unknown [address] [facility] [place] [address] 02/13/2020 12:00:00 AM EST [facility] Outpatient Attender: Loyd Villaseñor MDReferrer: Callie SLOANSJPetarPARK 02/09/2020 12:00:00 AM EST - 02/09/2020 03:04:06 PM EST [facility] Unknown [address] [facility] [address] [address] 02/06/2020 12:00:00 AM EST [facility]CW1 [facility] Outpatient [address] [facility] [address] [address] 01/24/2020 12:00:00 AM EST eCW1 ([facility]) Unknown [address] [facility] [place] [address] 01/19/2020 12:00:00 AM EST eCW1 ([facility]) Unknown [address] [facility] [address] [id number] 01/19/2020 12:00:00 AM EST [facility]CW1 ([facility] Unknown [address] [facility] [address] [address] 01/17/2020 12:00:00 AM EST [facility]CW1 [facility] Outpatient [address] [facility] [address] [address] 01/16/2020 12:00:00 AM EST eCW1 ([facility]) Unknown [address] [facility] [address] [address] 01/03/2020 12:00:00 AM EST [facility]CW1 ([facility]) Outpatient Attender: Marianna Alejandra/Deloris/Magdy/Soy hanley 12/14/2019 09:15:00 AM EST [facility] ([facility]) [place] [address] [facility] [place] [address] 12/09/2019 12:00:00 AM EDT eCW1 ([facility]) [place] [address] [facility] [place] [address] 12/09/2019 12:00:00 AM EDT eCW1 ([facility]) Medications Medication Brand Name Start Date Product [...] acti ve Nortriptyline HCl 25 MG eCW1 ([facility]) atorvastatin 80 MG Oral Tablet Atorvastatin Calcium 80 MG Atorvastatin Calcium 80 MG 10/08/2020 12:00:00 AM EDT 1.0 {tablet} activ e Atorvastatin Calcium 80 MG eCW1 ([facility]) Nortriptyline 25 MG Oral Capsule Nortriptyline HCl 25 MG Nortriptyline HCl 25 MG 10/08/2020 12:00:00 AM EDT 1.0 {capsule} acti ve Nortriptyline HCl 25 MG eCW1 ([facility]) Nortriptyline 25 MG Oral Capsule Nortriptyline HCl 25 MG Nortriptyline HCl 25 MG 10/08/2020 12:00:00 AM EDT 1.0 {capsule} acti ve Nortriptyline HCl 25 MG eCW1 ([facility]) Nortriptyline 25 MG Oral Capsule Nortriptyline HCl 25 MG Nortriptyline HCl 25 MG 10/08/2020 12:00:00 AM EDT 1.0 {capsule} acti ve Nortriptyline HCl 25 MG eCW1 ([facility]) 25 mg 10/08/2020 12:00:00 AM EDT capsule [...] activ e Atorvastatin Calcium 80 MG eCW1 ([facility]) 75 mg 10/08/2020 12:00:00 AM EDT tablet 30 TAKE ONE TABLET BY MOUTH EVERY DAY TAKE ONE TABLET BY MOUTH EVERY DAY SOLD: 10/12/2020 [facility] atorvastatin 80 MG Oral Tablet Atorvastatin Calcium 80 MG Atorvastatin Calcium 80 MG 10/08/2020 12:00:00 AM EDT 1.0 {tablet} activ e Atorvastatin Calcium 80 MG eCW1 ([facility]) atorvastatin 80 MG Oral Tablet Atorvastatin Calcium 80 MG Atorvastatin Calcium 80 MG 10/08/2020 12:00:00 AM EDT 1.0 {tablet} activ e Atorvastatin Calcium 80 MG eCW1 ([facility]) 80 mg 09/27/2020 12:00:00 AM EDT tablet 30 TAKE ONE TABLET BY MOUTH EVERY DAY TAKE ONE TABLET BY MOUTH EVERY DAY SOLD: 09/28/2020 [facility] atorvastatin 40 MG Oral Tablet atorvastatin (LIPITOR) 40 MG tablet atorvastatin (LIPITOR) 40 MG tablet 08/29/2020 12:00:00 AM EDT 40 mg Oral aborted Take 40 mg by mouth daily [facility] pantoprazole 40 MG Delayed Release Oral Tablet [...] active Take 75 mg by mouth daily [facility] Acetaminophen 325 MG Oral Tablet Acetaminophen 325 MG 2020 12:00:00 AM EDT 1.0 {tablet_as_needed} active A cetaminophen 325 MG eCW1 ([facility]) Acetaminophen 325 MG Oral Tablet Acetaminophen 325 MG 2020 12:00:00 AM EDT 1.0 {tablet_as_needed} active A cetaminophen 325 MG eCW1 ([facility]) Acetaminophen 325 MG Oral Tablet Acetaminophen 325 MG 2020 12:00:00 AM EDT 1.0 {tablet_as_needed} active A cetaminophen 325 MG eCW1 ([facility]) 25 mg 07/31/2020 12:00:00 AM EDT tablet [...] TABLET BY MOUTH EVERY DAY SOLD: 11/15/2020 [facility] Folic Acid 1 MG Oral Tablet Folic Acid 06/21/2020 12:00:00 AM EDT ORAL active MEDENT ([facility]) Furosemide 40 MG Oral Tablet furosemide (LASIX) 40 MG tablet furosemide (LASIX) 40 MG tablet 05/07/2020 12:00:00 AM EDT 40 mg Oral activ e Take 1 tablet (40 mg total) by mouth every morning [facility] Folic Acid 1 MG Oral Tablet folic acid (FOLVITE) 1 MG tablet folic acid (FOLVITE) 1 MG tablet 05/07/2020 12:00:00 AM EDT 1 mg Oral active Take 1 tablet (1 mg total) by mouth daily [facility] Docusate Sodium 100 MG Oral Capsule docusate sodium (, DSS,) 100 MG CAPS docusate sodium (,DSS,) 100 MG CAPS 05/07/2020 12:00:00 AM EDT 100 mg Oral active Take 1 capsule (100 mg total) by mouth zack [facility] Daily Izabela (THERAGRAN) per tablet [id number] 05/07/2020 12:00:00 AM EDT 1 {tbl} Oral active Take 1 tablet by mouth zack [facility] Ascorbic Acid 500 MG Oral Tablet ascorbic acid (VITAMI N C) 500 MG tablet ascorbic acid (VITAMIN C) 500 MG tablet 05/07/2020 12:00:00 AM EDT 500 mg Oral active Take 1 tablet (500 m g total) by mouth daily [facility] atorvastatin 40 MG Oral Tablet atorvastatin (LIPITOR) 40 MG tablet atorvastatin (LIPITOR) 40 MG tablet 05/07/2020 12:00:00 AM EDT 40 mg Oral aborted Take 40 mg by mouth daily [facility] potassium chloride SA (K-DUR,KLOR-CON) 20 MEQ tablet [id number] 05/06/2020 12:00:00 AM EDT 20 meq Oral active Take 1 tablet (20 mEq total) by mouth daily [facility] Acetaminophen 325 MG / Oxycodone Hydroch loride 5 MG Oral Tablet oxyCODONE- acetaminophen (PERCOCET) 5-325 MG per tablet oxyCODONE-acetaminophen (PERCOCET) 5-325 MG per tablet 05/06/2020 12:00:00 AM EDT 1 {tbl} Oral active Take 1 tablet by mouth every 6 (six) hours as needed for pain Max Daily Amount: 4 tablets [facility] Metoprolol Tartrate 25 MG Oral Tablet me toprolol tartrate (LOPRESSOR) 25 MG tablet metoprolol tartrate (LOPRESSOR) 25 MG tablet 05/06/2020 12:0 0:00 AM EDT 25 mg Oral active Take 1 tablet (2 5 mg total) by mouth 2 (two) times a day [facility] 324 mg (38 mg iron) 05/06/2020 12:00:00 [...] 2 (two) times a day before meals [facility] 25 mg 05/06/2020 12:00:00 AM EDT tablet [...] morning, First dose on 05/05/20 at 0900 [facility] Medication administered onsite Bisacodyl 10 MG Rectal Suppository bisacodyl (DULCOLAX ) suppository 10 mg bisacodyl (DULCOLAX) suppository 10 mg 05/05/2020 09:00:00 AM EDT 10 mg Rectal active 10 mg, Rectal, Daily PRN, constipation, if polyethylene glycol is not effective, Starting Thu05/05/20 at 0900
hold for loose stools
[facility] Medication administered onsite furosemide (LASIX) injection 40 mg [id number] 05/04/2020 10:00:00 AM EDT 40 mg Intravenous completed 40 mg, I ntravenous, Once, Thu05/04/20 at 1000, For 1 dose [facility] Medication administered onsite Daily Izabela (THERAGRAN) 1 tablet [id number] 05/04/2020 09:00:00 AM EDT 1 {tbl} Oral active 1 tablet, Oral, Daily, First dose on Thu05/04/20 at 0900 [facility] Medication administered onsite POLYETHYLENE GLYCOL 3350 142 MG/ML Oral Solution polyethylene glycol (GLYCOLAX) packet 17 g polyethylene glycol (GLYCOLAX) packet 17 g 05/04/2020 09:00:00 AM EDT 17 g Oral active 17 g, Or al, Daily, First dose on Thu05/04/20 at 0900
Starting 2nd POD, give every day until result
[facility] Medication administered onsite ferrous gluconate 324 MG Oral Tablet ferrous gluconate (FERGON) tablet 324 mg ferrous gluconate (FERGON) tablet 324 mg 05/04/2020 07:00:00 AM EDT 324 mg Oral active 324 mg, Oral, 2 times daily before meals, First dose on Thu05/04/20 at 0700
Start POD #2
[facility] Medication administered onsite 1 ML Ketorolac Tromethamine 30 MG/ML [facility] ketorolac (TORADOL) injection 30 mg ketorolac (TORADOL) injection 30 mg 05/03/2020 11:41:40 PM EDT 30 mg Intravenous completed 30 mg, Intrav enous, Every 6 hours PRN, severe pain (7-10), Starting Milena 05/03/20 at 2341, For 3 doses [facility] Medication administered onsite normal saline flush 0.9 % injection 3 mL [id number] 05/03/2020 10:00:00 PM EDT 3 mL Intravenous active 3 mL , Intravenous, PROTOCOL, First dose on Thu05/03/20 at 2200
May convert IV to a saline lock when taking in good p.o. intake (minimally 600 mL).
[facility] Medication administered onsite pantoprazole 40 MG Delayed Release Oral Tablet pantoprazole (PROTONIX) EC tablet 40 mg pantoprazole (PROTONIX) EC tablet 40 mg 05/03/2020 09:00:00 PM E DT 40 mg Oral active Gastroesophageal Reflux Diseas e 40 mg, Oral, 2 times daily, Indications: Gastroesophageal Reflux Disease, First dose on Thu05/03/20 at 2100
Start after extubation Do Not Crush
[facility] Gastroesophageal Reflux Disease Medication administered onsite 50 ML Magnesium Sulfate 40 MG/ML Injecti on magnesium sulfate 2 g in sterile diluent magnesium sulfate 2 g in sterile diluent 05/03/2020 06:07:01 PM EDT 2 g Intravenous active 2 g, Int ravenous, at 50 mL/hr, As needed, serum Mg 1.9-2.1, Starting [facility] 05/03/20 at 1807
Give 2 grams magnesium sulfate IV x 1 run over 1 hour. For serum creatinine (SCR) 0.8 to 1.5
[facility] Medication administered onsite potassium chloride SA (K-DUR,KLOR-CON) CR tablet 20 mEq 6203 705/03/2020 06:07:01 PM EDT 20 meq Oral active 20 mEq, Oral, As needed, Serum K+ 3.9-4.1, Starting Milena 05/03/20 at 1807
For serum creatinine (SCR) 0.8 to 1.5
[facility] Medication administered onsite potassium chloride SA (K-DUR,KLOR-CON) CR tablet 40 mEq 6203 705/03/2020 06:07:01 PM EDT 40 meq Oral active 40 mEq, Oral, As needed, Serum K+ 3.5-3.8, Starting Milena 05/03/20 at 1807
For serum creatinine (SCR) 0.8 to 1.5
[facility] Medication administered onsite ondansetron (ZOFRAN) injection 4 mg [id number] 05/03/2020 06:07:0 1 PM EDT 4 mg Intravenous active 4 mg, In travenous, Every 6 hours PRN, nausea, vomiting, Starting Milena 05/03/20 at 1807
If no response in 15-30 minutes, give metoclopramide 10 mg IV x 1 then q6h prn N/V.
[facility] Medication administered onsite Nitroglycerin 0.4 MG Sublingual Tablet n itroglycerin (NITROSTAT) SL tablet 0.4 mg nitroglycerin (NITROSTAT) SL tablet 0.4 mg 05/03/2020 06:07:01 P M EDT 0.4 mg Sublingual active 0.4 mg, S ublingual, Every 5 min PRN, chest pain, Starting Milena 05/03/20 at 1807
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 Notify MD/PA/TALENT BUYER.
[facility] Medication administered onsite 50 ML Magnesium Sulfate [...] For serum creatinine (SCR) 0.8 to 1.5
[facility] Medication administered onsite Albuterol 0.83 MG/ML Inhalant Solution a lbuterol (PROVENTIL) nebulizer solution 2.5 mg albuterol (PROVENTIL) nebulizer solution 2.5 mg 2020 06:07:00 PM EDT 2.5 mg active 2.5 mg, Nebulization, RT every 2 hours as needed, wheezing, shortness of breath, Starting Milena 05/03/20 at 1807 [facility] Medication administered onsite Aluminum Hydroxide 64 MG/ML Oral Suspens ion aluminum hydroxide (ALTERNAGEL) suspension 15 mL aluminum hydroxide (ALTERNAGEL) suspension 15 mL 05/03 06:07:00 PM EDT 15 mL Oral active 15 mL, Oral, Every 4 hours PRN, for indigestion/ gas, Starting Milena 05/03/20 at 1807 [facility] Medication administered onsite furosemide (LASIX) injection 40 mg [id number] 05/03/2020 05:00:00 PM EDT 40 mg Intravenous completed 40 mg, I ntravenous, LOOPBID, First dose on Milena 05/03/20 at 1700, For 1 dose [facility] Medication administered onsite albumin human 5 % bottle 12.5 g [id number] 05/03/2020 04:00:00 PM EDT 12.5 g Intravenous completed Hypotension 12.5 g, Intr avenous, Once, Indications: Hypotension, Milena 05/03/20 at 1600, For 1 dose [facility] Hypotension Medication administered onsite furosemide (LASIX) injection 40 mg [id number] 05/03/2020 01:00:00 PM EDT 40 mg Intravenous completed 40 mg, I ntravenous, Once, Milena 05/03/20 at 1300, For 1 dose [facility] Medication administered onsite lidocaine (ASPERCREME) 4 % 1 patch [id number] 05/03/2020 09:00:00 AM EDT 1 {patch} Transdermal active 1 patch, Transdermal, Administer over 12 Hours, Daily, First dose on Milena 05/03/20 at 0900 [facility] Medication administered onsite Docusate Sodium 100 MG Oral Capsule docusate sodium (C OLACE) capsule 100 mg docusate sodium (COLACE) capsule 100 mg 05/03/2020 09:00:00 AM EDT 100 mg Oral active 100 mg, Oral, Daily, First dose on Milena 05/03/20 at 0900
Give PO/OG. Start first POD
[facility] Medication administered onsite Thiamine 100 MG Oral Tablet thiamine tablet 100 mg thiamine tablet 100 mg 05/03/2020 09:00:00 AM EDT 100 mg Oral active 100 mg, Oral, Daily, First dose on Milena 05/03/20 at 0900 [facility] Medication administered onsite Ascorbic Acid 500 MG Oral Tablet ascorbic acid (VITAMI N C) tablet 500 mg ascorbic acid (VITAMIN C) tablet 500 mg 05/03/2020 09:00:00 AM EDT 500 mg Oral active 500 mg, Oral, Daily, First dose on Milena 05/03/20 at 0900
Give PO/OG. Start first POD.
[facility] Medication administered onsite Folic Acid 1 MG Oral Tablet folic acid (FOLVITE) table t 1 mg folic acid (FOLVITE) tablet 1 mg 05/03/2020 09:00:00 AM EDT 1 mg Oral active 1 mg, Oral, Daily, First dose on Milena 05/03/20 at 0900
Give PO/OG. Start first POD
[facility] Medication administered onsite Aspirin 81 MG Delayed Release Oral Tablet aspirin EC t ablet 81 mg aspirin EC tablet 81 mg 05/03/2020 09:00:00 AM EDT 81 mg Oral activ e 81 mg, Oral, Daily, First dose on Milena 05/03/20 at 0900
Hold for platelet count less than 90,000. If OG tube in place, give non-enteric coated aspirin.
[facility] Medication administered onsite furosemide (LASIX) injection 40 mg [id number] 05/03/2020 07:00:00 AM EDT 40 mg Intravenous completed 40 mg, I ntravenous, Once, Milena 05/03/20 at 0700, For 1 dose [facility] Medication administered onsite 1 ML Ketorolac Tromethamine 15 MG/ML [facility] ketorolac (TORADOL) injection 15 mg ketorolac (TORADOL) injection 15 mg 05/03/2020 06:37:15 AM EDT 15 mg Intravenous aborted 15 mg, Intrav enous, Every 6 hours PRN, severe pain (7-10), Starting Milena 05/03/20 at 0637, For 24 hours [facility] Medication administered onsite 1 ML Lorazepam 2 [...] If treatment is needed prior, notify provider.
[facility] Medication administered onsite heparin (porcine) injection 5,000 Units [id number] 05/04/19 06:00:00 AM EDT 5000 U Subcutaneous active 5,000 Units , Subcutaneous, Every 8 hours (scheduled), First dose on Milena 05/03/20 at 0600
Start first POD. Hold for platelet count less than 90,000, INR greater than or equal to 1.7 if receiving coumadin therapy.
[facility] Medication administered onsite Metoprolol Tartrate 25 MG Oral Tablet me toprolol tartrate (LOPRESSOR) tablet 25 mg metoprolol tartrate (LOPRESSOR) tablet 25 mg 05/03/2020 06:00:00 AM EDT 25 mg Oral active 25 mg, Ora l, 2 times daily, First dose on Milena 05/03/20 at 0600
Hold for SBP<100 HR<60
[facility] Medication administered onsite normal saline flush 0.9 % injection 3 mL [id number] 05/03/2020 06:00:00 AM EDT 3 mL Intravenous active 3 mL , Intravenous, PROTOCOL, First dose on Milena 05/03/20 at 0600
May convert to saline lock with minimally 600 ml PO intake on first POD; prior to transfer
[facility] Medication administered onsite atorvastatin 80 MG Oral Tablet atorvastatin (LIPITOR) tablet 80 mg atorvastatin (LIPITOR) tablet 80 mg 05/02/2020 09:00:00 PM EDT 80 mg Oral active 80 mg, Oral, Daily, First dose on Thu05/02/20 at 2100 [facility] Medication administered onsite cefazolin (ANCEF) injection 2 [...] this medication through syringe adapter set ref [id number]. Flush line after use
[facility] Perioperative Pharmacoprophylaxis Medication administered onsite Insulin Lispro [...] cover POC glucose at 08:00, 12:00, 17:00.
[facility] Medication administered onsite Vitamin B 12 1 MG/ML Injectable Solution cyanocobalami n injection 1,000 mcg cyanocobalamin injection 1,000 mcg 05/02/2020 02:00:00 PM EDT 10 00 ug Subcutaneous completed 1,000 mcg, S ubcutaneous, Once, Thu05/02/20 at 1400, For 1 dose, PACU & Post-op
DEEP SUBCUTANEOUS
[facility] Medication administered onsite Famotidine (PEPCID) injection 20 mg [id number] 05/02/2020 02:00:0 0 PM EDT 20 mg Intravenous aborted 20 mg, I ntravenous, Every 12 hours (scheduled), First dose on Thu05/02/20 at 1400, PACU & Post-op
D/C after extubation
[facility] Medication administered onsite Magnesium Chloride 0.82650 MEQ/ML / Pota ssium Chloride 0.0497 MEQ/ML [...] intake is 2 liters in 24 hours
[facility] Medication administered onsite niCARdipine (CARDENE) 50 mg/250 ml 0.9% NaCl infusion 05/02/2020 02:00:00 PM EDT Intravenous aborted PACU & Post-op, 0-15 mg/hr (0-75 mL/hr), Intravenous, Continuous, Starting Thu05/02/20 at 1400, Until Milena 05/03/20 at 1810, at 0-75 mL/hr [facility] Medication administered onsite Dexmedetomidine HCl 400 mcg in sodium chloride (NS) 0.9 % 10 0 mL infusion 05/02/2020 02:00:00 PM EDT Intravenous aborted Post-op, 0.2-0.7 mcg/kg/hr 91.8 kg (4.59-16.065 mL/hr, rounded to 4.6-16.1 mL/hr), Intravenous, Continuous, Starting Thu05/02/20 at 1400, Until Thu05/02/20 at 2018, at 4.6-16.1 mL/hr [facility] Medication administered onsite pantoprazole 40 MG Delayed Release Oral Tablet pantoprazole (PROTONIX) EC tablet 40 mg pantoprazole (PROTONIX) EC tablet 40 mg 05/02/2020 02:00:00 PM E DT 40 mg Oral aborted Gastroesophageal Reflux Diseas e 40 mg, Oral, Daily, Indications: Gastroesophageal Reflux Disease, First dose on Thu05/02/20 at 1400, Post-op
Start after extubation Do Not Crush
[facility] Gastroesophageal Reflux Disease Medication administered onsite propofol (DIPRIVAN) infusion 10 mg/mL [id number] 05/02/2020 02:00 :00 PM EDT Intravenous aborted [...] OFF 2 HOURS AFTER ADMISSION TO CVICU
[facility] Medication administered onsite Tamsulosin hydrochloride 0.4 MG Oral Cap sg tamsulosin (FLOMAX) 24 hr capsule 0.4 mg tamsulosin (FLOMAX) 24 hr capsule 0.4 mg 05/02/2020 02:00:00 PM EDT 0.4 mg Oral active 0.4 mg, Oral, Daily, Fir st dose on Thu05/02/20 at 1400 [facility] Medication administered onsite Citalopram 40 MG Oral Tablet citalopram (CeleXA) table t 40 mg citalopram (CeleXA) tablet 40 mg 05/02/2020 02:00:00 PM EDT 40 mg Oral active 40 mg, Oral, Daily, First dose on Thu05/02/20 at 1400 [facility] Medication administered onsite oxyCODONE-acetaminophen (PERCOCET) 5-325 MG [...] opiate orders before starting.
[Order 2 End] [facility] Medication administered onsite 2 ML Metoclopramide 5 MG/ML Prefilled Sy ringe metoclopramide (REGLAN) injection 10 mg metoclopramide (REGLAN) injection 10 mg 05/02/2020 12:53:57 PM E DT 10 mg Intravenous active 10 mg, I ntravenous, Every 6 hours PRN, nausea, vomiting, if zofran is not effective, Starting Thu05/02/20 at 1253 [facility] Medication administered onsite 1 ML Naloxone Hydrochloride 0.4 MG/ML In jection naloxone (NARCAN) injection 0.2 mg naloxone (NARCAN) injection 0.2 mg 05/02/2020 12:53:57 PM EDT 0.2 mg Intravenous active 0.2 mg, Intra venous, As needed, opioid reversal, PRN for RR< 8 and/or unable to arouse patient immediately., Starting Thu05/02/20 at 1253 [facility] Medication administered onsite 2 ML Midazolam 1 MG/ML Injection midazolam (VERSED) in jection 1 mg midazolam (VERSED) injection 1 mg 05/02/2020 12:53:57 PM EDT 1 mg Intraveno us aborted 1 mg, Intravenous, E very 30 min PRN, anxiety, sedation, Starting Thu05/02/20 at 1253, For 7 days, PACU & Post-op
Target RASS -2 to +1 DISCONTINUE AFTER EXTUBATION
[facility] Medication administered onsite ondansetron (ZOFRAN) injection 4 mg [id number] 05/02/2020 12:53:5 7 PM EDT 4 mg Intravenous aborted 4 mg, In travenous, Every 6 hours PRN, nausea, vomiting, Starting Thu05/02/20 at 1253 [facility] Medication administered onsite fentaNYL Citrate (PF) (SUBLIMAZE) injection 25 mcg [id number] 05/02/2020 12:53:56 PM EDT 25 ug Intravenous aborted 25 mcg, Intravenous, Every 10 min PRN, moderate pain (4-6), Starting Thu05/02/20 at 1253, For 7 days, PACU & Post-op
Maximum 10 doses in a 24-hour period. DISCONTINUE 6 HOURS POST EXTUBATION
[facility] Medication administered onsite HYDROmorphone (DILAUDID) injection 0.5 mg [id number] 05/02/2020 12:53:56 PM EDT 0.5 mg Intravenous aborted 0.5 mg, Intravenous, Every 5 min PRN, severe pain (7-10), Starting Thu05/02/20 at 1253, For 7 days
Indicated for patients less than 75 years of age and not frail patients. FOR EXTUBATED PATIENTS ONLY. DISCONTINUE 6 HOURS POST EXTUBATION. Maximum dose 2 mg.
[facility] Medication administered onsite HYDROmorphone (DILAUDID) injection 0.5 mg [id number] 05/02/2020 12:53:56 PM EDT 0.5 mg Intravenous aborted 0.5 mg, Intravenous, Every 10 min PRN, severe pain (7-10), Starting Thu05/02/20 at 1253, For 7 days, PACU & Post- op
Indicated for patients less than 75 years of age and not frail patients. FOR INTUBATED PATIENTS ONLY. DISCONTINUE POST EXTUBATION. Maximum dose 3 mg.
[facility] Medication administered onsite dextrose 50 % solution 25 mL [id number] 05/02/2020 12:53:55 PM EDT 25 mL Intravenous [...] insulin infusion at 50% of previous rate.
[facility] Medication administered onsite Acetaminophen 650 MG Rectal Suppository acetaminophen (TYLENOL) suppository 650 mg acetaminophen (TYLENOL) suppository 650 mg 05/02/2020 12:53:54 P M EDT 1 {suppository} Rectal active 650 mg (1 suppository), Rectal, Every 4 hours PRN, headaches, and temp >101. Call MD/PA, Starting Thu05/02/20 at 1253 [facility] Medication administered onsite Acetaminophen 325 MG Oral Tablet acetaminophen (TYLENO L) 325 MG tablet 650 mg acetaminophen (TYLENOL) 325 MG tablet 650 mg 05/02/2020 12:53:54 PM EDT 650 mg Oral active 650 mg, Or al, Every 4 hours PRN, headaches, and temp >101. Call MD/PA., Starting Thu05/02/20 at 1253
"Maximum dose of acetaminophen is 4,000 mg from all sources in 24 hours."
[facility] Medication administered onsite Metoprolol Tartrate 25 MG Oral Tablet me toprolol tartrate (LOPRESSOR) tablet 12.5 mg metoprolol tartrate (LOPRESSOR) tablet 12.5 mg 09:00:00 AM EDT 12.5 mg Oral aborted 12.5 mg, Oral, 2 times daily, First dose on Thu05/02/20 at 0900, Pre-op
Hold for HR < 60, or SBP <100
[facility] Medication administered onsite BUPIVACAINE 0.5% (Q-BALL) 330 mL 05/02/2020 07:00:00 AM EDT 330 mL Topical active 330 mL, Topical , Continuous, Starting Thu05/02/20 at 0700, Intra- op
Please indicate single or double lumen: Double Lumen [facility] Medication administered onsite heparin (porcine) injection 5,000 Units [id number] 05/03/19 07:00:00 AM EDT 5000 U Subcutaneous completed 5,000 Uni ts, Subcutaneous, Once, Thu05/02/20 at 0700, For 1 dose, Pre-op
Once on admission. Hold for platelets < 90,000.
[facility] Medication administered onsite Citalopram 40 MG Oral [...] 04/13/2020 12:00:00 AM EST aborted as needed [facility] Citalopram 40 MG Oral Tablet CITALOPRAM [...] CANISTER (PROVENTIL HFA;VENTOLIN HFA) inhaler 2 puff [id number] 04/02/2020 12:54:44 PM EST 2 {puff} Inhalation [...] be repeated before and after each use.
[facility] Medication administered onsite 25 mg 03/16/2020 12:00:00 [...] tablets (20 mg total) by mouth daily [facility] Chlorthalidone 25 MG Oral Tablet chlorthalidone (HYGRO TEN) 25 MG tablet chlorthalidone (HYGROTEN) 25 MG tablet 02/26/2020 12:00:00 AM EST 2 5 mg Oral active Take 1 tablet (25 mg tota l) by mouth daily [facility] normal saline flush 0.9 % injection 3 mL [id number] 02/24/2020 02:00:00 PM EST 3 mL Intravenous active 3 mL , Intravenous, PROTOCOL, First dose on Thu02/24/20 at 1400, Pre-op
flush per protocol, D/C Main IV fluid if appropriate
[facility] Medication administered onsite iopamidol (ISOVUE-370) 76 % [id number] 02/24/2020 10:08:03 AM EST active As needed, Starting Thu02/24/20 at 1008, Intra-Procedu re [facility] Medication administered onsite heparin (porcine) injection [id number] 02/24/2020 09:28:46 AM EST active As needed, Starting Thu02/24/20 at 0928, Intra-Procedure [facility] Medication administered onsite 4 ML Verapamil hydrochloride 2.5 MG/ML Injection verap christiane (ISOPTIN) injection verapamil (ISOPTIN) injection 02/24/2020 09:28:36 AM EST active As needed, Starting Thu02/24/20 at 0928, Intra-Procedure [facility] Medication administered onsite lidocaine 1 % injection [id number] 02/24/2020 09:28:10 AM EST active As needed, Starting Thu02/24/20 at 0928, Intra-Procedure [facility] Medication administered onsite 2 ML Midazolam 1 MG/ML Injection midazolam (VERSED) in jection midazolam (VERSED) injection 02/24/2020 09:21:02 AM EST active As needed, Starting Thu02/24/20 at 0921, Intra-Procedure [facility] Medication administered onsite fentaNYL Citrate (PF) (SUBLIMAZE) injection [id number] 02/24/2020 09:20:49 AM EST active As neede d, Starting Thu02/24/20 at 0920, Intra-Procedure [facility] Medication administered onsite normal saline flush 0.9 % injection 3 mL [id number] 02/24/2020 07:00:00 AM EST 3 mL Intravenous active 3 mL , Intravenous, Every 8 hours (scheduled), First dose on Thu02/24/20 at 0700, Pre-op
Rapid push positive pressure flushing shall be performed with a 10 cc normal saline syringe to check the PATENCY of a PIV site prior to any infusion therapy initiation unless resistance is met.
[facility] Medication administered onsite normal saline flush 0.9 % injection 3 mL [id number] 02/24/2020 07:00:00 AM EST 3 mL Intravenous active 3 mL , Intravenous, Every 8 hours (scheduled), First dose on Thu02/24/20 at 0700, Pre-op
Rapid push positive pressure flushing shall be performed with a 10 cc normal saline syringe to check the PATENCY of a PIV site prior to any infusion therapy initiation unless resistance is met.
[facility] Medication administered onsite Diphenhydramine Hydrochloride 50 MG Oral Capsule diphenhydrAMINE (BENADRYL) capsule 50 mg diphenhydrAMINE (BENADRYL) capsule 50 mg 02/24/2020 07 :00:00 AM EST 50 mg Oral completed 50 mg, Oral, call or contact centre manager, Thu02/24/20 at 0700, For 1 dose, Pre-op [facility] Medication administered onsite sodium chloride 0.9% (NS) infusion [id number] 02/24/2020 07:00:00 AM EST 100 mL/h Intravenous active at 100 m L/hr, 100 mL/hr, Intravenous, Continuous, Starting Thu02/24/20 at 0700, Pre-op
Start two hours prior to scheduled start time
[facility] Medication administered onsite Aspirin 325 MG [...] home. Max of 1 dose per day.
[facility] Medication administered onsite Citalopram 40 MG Oral [...] active Take 40 mg by mouth daily [facility] Chlorthalidone 25 MG Oral Tablet chlorthalidone (HYGRO TEN) 25 MG tablet chlorthalidone (HYGROTEN) 25 MG tablet 01/18/2020 12:00:00 AM EST 2 5 mg Oral aborted Take 25 mg by mouth daily [facility] Lisinopril 40 MG Oral Tablet lisinopril (PRINIVIL,ZEST RIL) 40 MG tablet lisinopril (PRINIVIL,ZESTRIL) 40 MG tablet 01/18/2020 12:00:00 AM EST aborted TAKE ONE HALF TABLET BY MOUTH TW ICE A DAY [facility] Sucralfate 1000 MG Oral Tablet sucralfate (CARAFATE) 1 g tablet sucralfate (CARAFATE) 1 g tablet 01/18/2020 12:00:00 AM EST 1 g Oral active Take 1 g by mouth 2 (two) times a day [facility] Tamsulosin hydrochloride 0.4 MG Oral Capsule tamsulosi n (FLOMAX) 0.4 MG CAPS tamsulosin (FLOMAX) 0.4 MG CAPS 01/18/2020 12:00:00 AM EST 0.4 mg O ral active Take 0.4 mg by mouth daily [facility] 1 gram 01/18/2020 12:00:00 AM EST tablet [...] 1.0 {tablet_on_an_empty_stomach} active Carafate 1 GM eCW1 ([facility]) Sucralfate 1000 MG Oral Tablet [Carafate] Carafate 1 GM Lucia fate 1 GM 01/17/2020 12:00:00 AM EST 1.0 {tablet_on_an_empty_stomach} active Carafate 1 GM eCW1 ([facility]) Sucralfate 1000 MG Oral Tablet [Carafate] Carafate 1 GM Lucia fate 1 GM 01/17/2020 12:00:00 AM EST 1.0 {tablet_on_an_empty_stomach} active Carafate 1 GM eCW1 ([facility]) Sucralfate 1000 MG Oral Tablet [Carafate] Carafate 1 GM Lucia fate 1 GM 01/17/2020 12:00:00 AM EST 1.0 {tablet_on_an_empty_stomach} active Carafate 1 GM eCW1 ([facility]) Mirtazapine 7.5 MG Oral Tablet Mirtazapine 7.5 MG 01/16/2020 12:00: 00 AM EST 2.0 {tablets_at_bedtime} active Mirtaza pine 7.5 MG eCW1 ([facility]) Mirtazapine 7.5 MG Oral Tablet Mirtazapine 7.5 MG 01/16/2020 12:00: 00 AM EST 2.0 {tablets_at_bedtime} active Mirtaza pine 7.5 MG eCW1 ([facility]) Mirtazapine 7.5 MG Oral Tablet mirtazapine (REMERON) 7 .5 MG tablet mirtazapine (REMERON) 7.5 MG tablet 01/16/2020 12:00:00 AM EST 15 mg Oral active Take 15 mg by mouth nightly as needed (for sleep) [facility] Mirtazapine 7.5 MG Oral Tablet Mirtazapine 7.5 MG 01/16/2020 12:00: 00 AM EST 2.0 {tablets_at_bedtime} active Mirtaza pine 7.5 MG eCW1 ([facility]) Mirtazapine 7.5 MG Oral Tablet Mirtazapine 7.5 MG 01/16/2020 12:00: 00 AM EST 2.0 {tablets_at_bedtime} active Mirtaza pine 7.5 MG eCW1 ([facility]) 7.5 mg 01/16/2020 12:00:00 AM EST tablet [...] 1.0 {capsule} active Flomax 0.4 MG eCW1 ([facility]) Tamsulosin hydrochloride 0.4 MG Oral Capsule [Flomax] Flomax 0.4 MG Flomax 0.4 MG 12/09/2019 12:00:00 AM EDT 1.0 {capsule} active Flomax 0.4 MG eCW1 ([facility]) Tamsulosin hydrochloride 0.4 MG Oral Capsule [Flomax] Flomax 0.4 MG Flomax 0.4 MG 12/09/2019 12:00:00 AM EDT 1.0 {capsule} active Flomax 0.4 MG eCW1 ([facility]) Tamsulosin hydrochloride 0.4 MG Oral Capsule [Flomax] Flomax 0.4 MG Flomax 0.4 MG 12/09/2019 12:00:00 AM EDT 1.0 {capsule} active Flomax 0.4 MG eCW1 ([facility]) atorvastatin 40 MG Oral Tablet ATORVASTATIN CALCIUM [...] 1.0 {capsule} active Flomax 0.4 MG eCW1 ([facility]) atorvastatin 40 MG Oral Tablet ATORVASTATIN CALCIUM 12/09/2019 1 2:00:00 AM EDT tablet 90 TAKE ONE TABLET BY MOUTH EVERY D AY TAKE ONE TABLET BY MOUTH EVERY DAY SOLD: 05/07/2020 [facility] Tamsulosin hydrochloride 0.4 MG Oral Capsule [Flomax] Flomax 0.4 MG Flomax 0.4 MG 12/09/2019 12:00:00 AM EDT 1.0 {capsule} active Flomax 0.4 MG eCW1 ([facility]) 0.4 mg 12/09/2019 12:00:00 AM EDT capsule 30 TAKE ONE CAPSULE BY MOUTH EVERY DAY TAKE ONE CAPSULE BY MOUTH EVERY DAY SOLD: 12/12/2019 [facility] Tamsulosin hydrochloride 0.4 MG Oral Capsule [Flomax] Flomax 0.4 MG Flomax 0.4 MG 12/09/2019 12:00:00 AM EDT 1.0 {capsule} active Flomax 0.4 MG eCW1 ([facility]) atorvastatin 40 MG Oral Tablet atorvastatin (LIPITOR) 40 MG tablet atorvastatin (LIPITOR) 40 MG tablet 12/09/2019 12:00:00 AM EDT 40 mg Oral aborted Take 40 mg by mouth daily [facility] Nortriptyline 25 MG Oral Capsule nortriptyline (PAMELO R) 25 MG capsule nortriptyline (PAMELOR) 25 MG capsule 12/09/2019 12:00:00 AM EDT 50 m g Oral active Take 50 mg by mouth nightly as needed [facility] Tamsulosin hydrochloride 0.4 MG Oral Capsule [Flomax] Flomax 0.4 MG Flomax 0.4 MG 12/09/2019 12:00:00 AM EDT 1.0 {capsule} active Flomax 0.4 MG eCW1 ([facility]) Tamsulosin hydrochloride 0.4 MG Oral Capsule [Flomax] Flomax 0.4 MG Flomax 0.4 MG 12/09/2019 12:00:00 AM EDT 1.0 {capsule} active Flomax 0.4 MG eCW1 ([facility]) 25 mg 12/09/2019 12:00:00 AM EDT capsule 60 TAKE TWO CAPSULES BY MOUTH EVERY DAY BEFORE BEDTIME TAKE TWO CAPSULES BY MOUTH EVERY DAY BEFORE BEDTIME SO LD: 12/12/2019 [facility] Tamsulosin hydrochloride 0.4 MG Oral Capsule [Flomax] Flomax 0.4 MG Flomax 0.4 MG 12/09/2019 12:00:00 AM EDT 1.0 {capsule} active Flomax 0.4 MG eCW1 ([facility]) Tamsulosin hydrochloride 0.4 MG Oral Capsule [Flomax] Flomax 0.4 MG Flomax 0.4 MG 12/09/2019 12:00:00 AM EDT 1.0 {capsule} active Flomax 0.4 MG eCW1 ([facility]) Tamsulosin hydrochloride 0.4 MG Oral Capsule [Flomax] Flomax 0.4 MG Flomax 0.4 MG 12/09/2019 12:00:00 AM EDT 1.0 {capsule} active Flomax 0.4 MG eCW1 ([facility]) Tamsulosin hydrochloride 0.4 MG Oral Capsule [Flomax] Flomax 0.4 MG Flomax 0.4 MG 12/09/2019 12:00:00 AM EDT 1.0 {capsule} active Flomax 0.4 MG eCW1 ([facility]) Tamsulosin hydrochloride 0.4 MG Oral Capsule [Flomax] Flomax 0.4 MG Flomax 0.4 MG 12/09/2019 12:00:00 AM EDT 1.0 {capsule} active Flomax 0.4 MG eCW1 ([facility]) Tamsulosin hydrochloride 0.4 MG Oral Capsule [Flomax] Flomax 0.4 MG Flomax 0.4 MG 12/09/2019 12:00:00 AM EDT 1.0 {capsule} active Flomax 0.4 MG eCW1 ([facility]) Tamsulosin hydrochloride 0.4 MG Oral Capsule [Flomax] Flomax 0.4 MG Flomax 0.4 MG 12/09/2019 12:00:00 AM EDT 1.0 {capsule} active Flomax 0.4 MG eCW1 ([facility]) 0.4 mg 12/09/2019 12:00:00 AM EDT capsule 30 TAKE ONE CAPSULE BY MOUTH EVERY DAY TAKE ONE CAPSULE BY MOUTH EVERY DAY SOLD: 03/22/2020 [facility] Tamsulosin hydrochloride 0.4 MG Oral Capsule [Flomax] Flomax 0.4 MG Flomax 0.4 MG 12/09/2019 12:00:00 AM EDT 1.0 {capsule} active Flomax 0.4 MG eCW1 ([facility]) Tamsulosin hydrochloride 0.4 MG Oral Capsule [Flomax] Flomax 0.4 MG Flomax 0.4 MG 12/09/2019 12:00:00 AM EDT 1.0 {capsule} active Flomax 0.4 MG eCW1 ([facility]) Tamsulosin hydrochloride 0.4 MG Oral Capsule [Flomax] Flomax 0.4 MG Flomax 0.4 MG 12/09/2019 12:00:00 AM EDT 1.0 {capsule} active Flomax 0.4 MG eCW1 ([facility]) atorvastatin 40 MG Oral Tablet ATORVASTATIN CALCIUM 12/09/2019 1 2:00:00 AM EDT tablet 90 TAKE ONE TABLET BY MOUTH EVERY D AY TAKE ONE TABLET BY MOUTH EVERY DAY SOLD: 08/30/2020 [facility] Tamsulosin hydrochloride 0.4 MG Oral Capsule [Flomax] Flomax 0.4 MG Flomax 0.4 MG 12/09/2019 12:00:00 AM EDT 1.0 {capsule} active Flomax 0.4 MG eCW1 ([facility]) Tamsulosin hydrochloride 0.4 MG Oral Capsule [Flomax] Flomax 0.4 MG Flomax 0.4 MG 12/09/2019 12:00:00 AM EDT 1.0 {capsule} active Flomax 0.4 MG eCW1 ([facility]) Tamsulosin hydrochloride 0.4 MG Oral Capsule [Flomax] Flomax 0.4 MG Flomax 0.4 MG 12/09/2019 12:00:00 AM EDT 1.0 {capsule} active Flomax 0.4 MG eCW1 ([facility]) Tamsulosin hydrochloride 0.4 MG Oral Capsule [Flomax] Flomax 0.4 MG Flomax 0.4 MG 12/09/2019 12:00:00 AM EDT 1.0 {capsule} active Flomax 0.4 MG eCW1 ([facility]) Tamsulosin hydrochloride 0.4 MG Oral Capsule [Flomax] Flomax 0.4 MG Flomax 0.4 MG 12/09/2019 12:00:00 AM EDT 1.0 {capsule} active Flomax 0.4 MG eCW1 ([facility]) Tamsulosin hydrochloride 0.4 MG Oral Capsule [Flomax] Flomax 0.4 MG Flomax 0.4 MG 12/09/2019 12:00:00 AM EDT 1.0 {capsule} active Flomax 0.4 MG eCW1 ([facility]) Tamsulosin hydrochloride 0.4 MG Oral Capsule [Flomax] Flomax 0.4 MG Flomax 0.4 MG 12/09/2019 12:00:00 AM EDT 1.0 {capsule} active Flomax 0.4 MG eCW1 ([facility]) atorvastatin 80 MG Oral Tablet atorvastatin (LIPITOR) 80 MG tablet atorvastatin (LIPITOR) 80 MG tablet 10/18/2019 12:00:00 AM EDT active TAKE ONE TABLET BY MOUTH EVERY DAY [facility] 75 mg 10/15/2019 12:00:00 AM EDT [...] SOLD: 10/18/2019 [facility] Multiple Vitamin tablet [id number] 02/04/2018 12:00:00 AM EST aborted MULTIPLE VITAMIN TABS [facility] Lidocaine Hydrochloride 40 MG/ML Topical Cream Lidocai ne HCl 4 % CREA Lidocaine HCl 4 % CREA 02/04/2018 12:00:00 AM EST abort ed LIDOCAINE HCL 4 % CREA [facility] Acetaminophen 325 MG / Hydrocodone Ronnie trate 10 MG Oral Tablet HYDROcodone- acetaminophen (NORCO) 10-325 MG per tablet HYDROcodone-acetaminophen (NORCO) 10- 325 MG per tablet 01/30/2015 12:00:00 AM EST aborted NORCO 10-325 MG TABS [facility] clopidogrel 75 MG Oral Tablet clopidogrel (PLAVIX) 75 MG tablet clopidogrel (PLAVIX) 75 MG tablet 01/30/2015 12:00:00 AM EST 75 mg Oral active Take 75 mg by mouth daily [facility] Insurance Providers Payer name Policy type / Coverage type Policy ID Covered democrat ID Covered democrat's relationship to alfaro Policy Alfaro Plan Information MEDICAID M [id number] Self [id number] [facility] I [id number] Self [id number] [facility] I [id number] Self [id number] [facility] [id number] SP [id number] [facility] [id number] SP [id number] MEDICAID [id number] SP [id number] [facility] [id number] SP [id number] [facility] [id number] SP [id number] [facility] Health Maintenance Organization (HMO) [id number] Self [id number] [employer] COMM[employer] [facility] [id number] SP [id number] MEDICARE [id number] Kristine [id number] [employer] MEDICARE [id number] Kristine [id number] [employer] MEDIC[employer] Medicare [id number] xxxxxxxxxxxx [id number] [employer] MEDICARE [id number] Kristine [id number] INSURANCE COVID-19 COVID Kristine C OVID INSURANCE COVID-19 COVID Kristine C OVID INSURANCE COVID-19 [id number] [id number] INSURANCE COVID-19 COVID Kristine C OVID [employer] COMMUNITY [facility]AN [facility] [id number] [facility] COMMUN PLAN [id number] ANSI-Medicaid [id number] ANSI-Medicaid [id number] ANSI-Medicaid [id number] ANSI-Medicaid [id number] ANSI-Medicaid [id number] ANSI-Medicaid [id number] ANSI-Medicaid [id number] ANSI-Medicaid [id number] ANSI-Medicaid [id number] ANSI-Medicaid [id number] ANSI-Medicaid [id number] ANSI-Medicaid [id number] [facility] [id number] Self 1 [id number] ANSI-Medicaid [id number] ANSI-Medicaid [id number] ANSI-Medicaid [id number] ANSI-Medicaid [id number] ANSI-Medicaid [id number] ANSI-Medicaid [id number] ANSI-Medicaid [id number] ANSI-Medicaid [id number] ANSI-Medicaid [id number] ANSI-Medicaid [id number] ANSI-Medicaid [id number] ANSI-Medicaid [id number] ANSI-Medicaid [id number] ANSI-Medicaid [id number] ANSI-Medicaid [id number] ANSI-Medicaid [id number] ANSI-Medicaid [id number] ANSI-Medicaid [id number] ANSI-Medicaid [id number] ANSI-Medicaid [id number] ANSI-Medicaid [id number] ANSI-Medicaid [id number] ANSI-Medicaid [id number] ANSI-Medicaid [id number] ANSI-Medicaid [id number] ANSI-Medicaid [id number] ANSI-Medicaid [id number] ANSI-Medicaid [id number] ANSI-Medicaid [id number] ANSI-Medicaid [id number] ANSI-Medicaid [id number] ANSI-Medicaid [id number] ANSI-Medicaid [id number] ANSI-Medicaid [id number] ANSI-Medicaid [id number] ANSI-Medicaid [id number] MEDICAID [id number] SP [id number] MEDICAID [id number] SP [id number] MEDICAID M [id number] S [id number] [facility] Maintenance Organization ([facility]) [id number] Self [id number] MEDICAID M [id number] S [id number] [facility] UNAVAILABLE SP UNAVAILABLE [facility] [employer] [id number] Self [id number] JOSE MANUEL [place] UNAVAILABLE SP U NAVAILABLE JOSE MANUEL [id number] SP [id number] JOSE MANUEL [id number] SP [id number] [facility] [employer] [id number] Self [id number] [facility] [employer] [id number] Self [id number] JOSE MANUEL [facility] [id number] S [id number] [facility] [id number] SP [id number] MEDICAID M [id number] S [id number] [facility] Maintenance Organization ([facility]) [id number] Self OTHER 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 O [id number] S [id number] SELF PAY UNAVAILABLE SP UNAVAILA BLE TRAVELERS W/C [id number] SP [id number] MEDICARE BLUE PPO 306 [id number] SP [id number] TRAVELERS W/C [id number] SP [id number] MEDICARE BLUE PPO [id number] SP [id number] MEDICARE [id number] SP [id number] [employer]CELL[employer] BCBS B [id number] S [id number] [id number] MEDICARE [id number] SP [id number] MEDICARE [id number] SP [id number] [place]BS [place] PPO [id number]/307 [id number] SP [id number] [facility] [id number] SP [id number] [facility] O [id number] S [id number] [facility] [id number] SP [id number] [place] MEDICARE [id number] SP [id number] [facility] O [id number] S [id number] [facility]-Medicaid [id number] ANS-Medicaid [id number] ANS-Medicaid [id number] ANS-Medicaid [id number] ANS-Medicaid [id number] [facility]-Medicaid [id number] Problems, Conditions, and Diagnoses Code Display Name Description Problem Type Effective Dates Data Source(s) I10 Essential (primary) hypertension Essential (primary) h ypertension Diagnosis 09/17/2020 10:10:38 AM EDT [facility] I73.9 Peripheral vascular disease, unspecified Peripheral vascular disease, unspecified Diagnosis 09/17/2020 10:10:38 AM EDT [facility] I35.0 Nonrheumatic aortic (valve) stenosis Nonrheumati c aortic (valve) stenosis Diagnosis 09/17/2020 10:10:38 AM EDT [facility] E78.5 Hyperlipidemia, unspecified Hyperlipidemia, unspecifie d Diagnosis 09/17/2020 10:10:38 AM EDT [facility] I35.1 Nonrheumatic aortic (valve) insufficienc y Nonrheumatic aortic (valve) insufficienc Diagnosis 05/18/2020 10:13:[address] [facility] F17.210 Nicotine dependence, cigarettes, uncompl icated Nicotine dependence, cigarettes, uncompl Diagnosis 05/16/2020 10:59:12 AM EDT [facility] I35.1 Nonrheumatic aortic (valve) insufficienc y Nonrheumatic aortic (valve) insufficienc Diagnosis 05/02/2020 05:24:00 AM EDT [facility] U07.1 COVID-19 COVID-19 Diagnosis 04/27/2020 09:32:34 AM ED T [facility] G62.9 [id number] Peripheral polyneuropathy Problem 08/06/2020 12:00:00 AM EDT eCW1 ([facility]) I73.9 [id number] Peripheral angiopathies Problem 08/06/2020 1 2:00:00 AM EDT eCW1 ([facility]) Z95.2 [id number] S/P AVR Problem 05/30/2020 12:00:00 AM EDT eCW1 ([facility]) I35.1 Nonrheumatic aortic valve insufficiency Nonrheumatic aortic valve insufficiency [id number] 02/28/2020 12:00:00 AM EST [facility] I35.0 Aortic valve stenosis Aortic valve stenosis [id number] 02/17/2020 12:00:00 AM EST [facility] K64.4 [id number] External hemorrhoids Problem 01/16/2020 12:0 0:00 AM EST eCW1 ([facility]) N40.1 [id number] Benign prostatic hyp erplasia with lower urinary tract symptoms Problem 12/09/2019 12:00:00 AM EDT eCW1 ([facility]) Surgeries/Procedures Procedure Description Date Indications Data Source(s) OFFICE OUTPATIENT VISIT 25 MINUTES 10/22/2020 12:00:00 AM EDT MEDFELISHA ([facility], ) BLOOD COUNT COMPLETE AUTO&AUTO DIFRNTL WBC COUNT <td>C BC AND DIFFERENTIAL</td><td>Routine</td><td>08/07/2020</td><td></td><td> </td> 08/07/2020 12:00:00 AM EDT [facility] IRON <td>IRON</td><td>Routine</td ><td>08/07/2020</td><td></td><td> </td> 08/07/2020 12:00:00 AM EDT [facility] HEMOGLOBIN GLYCOSYLATED A1C <td>HEMOGLOBIN A1C</td><td>Routine</td><td>08/07/2020</td><td></td><td> </td> 08/07/2020 12:00:00 AM EDT [facility] FERRITIN <td>FERRITIN</td><td>Routine </td><td>08/07/2020</td><td></td><td> </td> 08/07/2020 12:00:00 AM EDT [facility] OFFICE OUTPATIENT VISIT 15 MINUTES 06/21/2020 12:00:00 AM EDT MEDENT ([facility], ) ECG ROUTINE ECG W/LEAST 12 LDS W/I&R <td>POCT AMB EKG</td><td>Routine</td><td>05/16/2020 12:52 PM EDT</td><td> Nonrheumatic aortic valve stenosis</td><td> </td> 05/16/2020 04:52:00 PM EDT Nonrheumatic aortic valve stenosis [facility] Nonrheumatic aortic valve stenosis BLOOD OCCULT PEROXIDASE ACTV QUAL FECES 1 DETER <td>OC CULT BLOOD X 1, STOOL</td><td>Routine</td><td>05/06/2020 11:30 AM EDT</td><td></td><td> </td> 05/06/2020 03:30:00 PM EDT [facility] BLOOD COUNT COMPLETE AUTOMATED <td>CBC</td><td>Timed</ td><td>05/06/2020 2:22 AM EDT</td><td></td><td> </td> 05/06/2020 06:22:00 AM EDT [facility] MAGNESIUM <td>MAGNESIUM</td><td>Timed< /td><td>05/06/2020 2:22 AM EDT</td><td></td><td> </td> 05/06/2020 06:22:00 AM EDT [facility] BASIC METABOLIC PANEL CALCIUM TOTAL <td>BASIC METABOLI C PANEL</td><td>Timed</td><td>05/06/2020 2:22 AM EDT</td><td></td><td> </td> 05/06/2020 06:22:00 AM EDT [facility] GLUC BLD GLUC MNTR DEV CLEARED FDA SPEC HOME USE <td>P OCT GLUCOSE</td><td>Routine</td><td>05/05/2020 1:23 PM EDT</td><td></td><td> </td> 05/05/2020 05:23:00 PM EDT [facility] GLUC BLD GLUC MNTR DEV CLEARED FDA SPEC HOME USE <td>P OCT GLUCOSE</td><td>Routine</td><td>05/05/2020 8:29 AM EDT</td><td></td><td> </td> 05/05/2020 12:29:00 PM EDT [facility] BLOOD COUNT HEMOGLOBIN <td>HEMOGLOBIN</td><td>Routi ne</td><td>05/05/2020 6:25 AM EDT</td><td></td><td> </td> 05/05/2020 10:25:00 AM EDT [facility] BLOOD COUNT HEMATOCRIT <td>HEMATOCRIT</td><td>Routi ne</td><td>05/05/2020 6:25 AM EDT</td><td></td><td> </td> 05/05/2020 10:25:00 AM EDT [facility] BLOOD COUNT COMPLETE AUTOMATED <td>CBC</td><td>Timed</ td><td>05/05/2020 2:52 AM EDT</td><td></td><td> </td> 05/05/2020 06:52:00 AM EDT [facility] MAGNESIUM <td>MAGNESIUM</td><td>Timed< /td><td>05/05/2020 2:52 AM EDT</td><td></td><td> </td> 05/05/2020 06:52:00 AM EDT [facility] BASIC METABOLIC PANEL CALCIUM TOTAL <td>BASIC METABOLI C PANEL</td><td>Timed</td><td>05/05/2020 2:52 AM EDT</td><td></td><td> </td> 05/05/2020 06:52:00 AM EDT [facility] GLUC BLD GLUC MNTR DEV CLEARED FDA SPEC HOME USE <td>P OCT GLUCOSE</td><td>Routine</td><td>05/04/2020 5:03 PM EDT</td><td></td><td> </td> 05/04/2020 09:03:00 PM EDT [facility] XR CHEST PA AND LATERAL <td>XR CHEST PA AND LATERAL</td><td>STAT</td><td>05/04/2020 10:32 AM EDT</td><td></td><td> </td> 05/04/2020 02:32:03 PM EDT [facility] GLUC BLD GLUC MNTR DEV CLEARED FDA SPEC HOME USE <td>P OCT GLUCOSE</td><td>Routine</td><td>05/04/2020 9:39 AM EDT</td><td></td><td> </td> 05/04/2020 01:39:00 PM EDT [facility] ECG ROUTINE ECG W/LEAST 12 LDS TRCG ONLY W/O I&R <td>E CG 12- LEAD</td><td>Routine</td><td>05/04/2020 4:14 AM EDT</td><td></td><td></td> 05/04/2020 08:14:24 AM EDT [facility] BLOOD COUNT COMPLETE AUTOMATED <td>CBC</td><td>Timed</ td><td>05/04/2020 2:22 AM EDT</td><td></td><td> </td> 05/04/2020 06:22:00 AM EDT [facility] MAGNESIUM <td>MAGNESIUM</td><td>Timed< /td><td>05/04/2020 2:22 AM EDT</td><td></td><td> </td> 05/04/2020 06:22:00 AM EDT [facility] BASIC METABOLIC PANEL CALCIUM TOTAL <td>BASIC METABOLI C PANEL</td><td>Timed</td><td>05/04/2020 2:22 AM EDT</td><td></td><td> </td> 05/04/2020 06:22:00 AM EDT [facility] GLUC BLD GLUC MNTR DEV CLEARED FDA SPEC HOME USE <td>P OCT GLUCOSE</td><td>Routine</td><td>05/03/2020 6:28 PM EDT</td><td></td><td> </td> 05/03/2020 10:28:00 PM EDT [facility] GLUC BLD GLUC MNTR DEV CLEARED FDA SPEC HOME USE <td>P OCT GLUCOSE</td><td>Routine</td><td>05/03/2020 11:28 AM EDT</td><td></td><td> </td> 05/03/2020 03:28:00 PM EDT [facility] GLUC BLD GLUC MNTR DEV CLEARED FDA SPEC HOME USE <td>P OCT GLUCOSE</td><td>Routine</td><td>05/03/2020 7:25 AM EDT</td><td></td><td> </td> 05/03/2020 11:25:00 AM EDT [facility] GLUC BLD GLUC MNTR DEV CLEARED FDA SPEC HOME USE <td>P OCT GLUCOSE</td><td>Routine</td><td>05/03/2020 2:26 AM EDT</td><td></td><td> </td> 05/03/2020 06:26:00 AM EDT [facility] BLOOD COUNT COMPLETE AUTOMATED <td>CBC</td><td>Timed</ td><td>05/03/2020 2:24 AM EDT</td><td></td><td> </td> 05/03/2020 06:24:00 AM EDT [facility] MAGNESIUM <td>MAGNESIUM</td><td>Timed< /td><td>05/03/2020 2:24 AM EDT</td><td></td><td> </td> 05/03/2020 06:24:00 AM EDT [facility] CALCIUM IONIZED <td>CALCIUM, IONIZED</td><td >Timed</td><td>05/03/2020 2:24 AM EDT</td><td></td><td> </td> 05/03/2020 06:24:00 AM EDT [facility] BASIC METABOLIC PANEL CALCIUM TOTAL <td>BASIC METABOLI C PANEL</td><td>Timed</td><td>05/03/2020 2:24 AM EDT</td><td></td><td> </td> 05/03/2020 06:24:00 AM EDT [facility] GLUC BLD GLUC MNTR DEV CLEARED FDA SPEC HOME USE <td>P OCT GLUCOSE</td><td>Routine</td><td>05/03/2020 12:18 AM EDT</td><td></td><td> </td> 05/03/2020 04:18:00 AM EDT [facility] BLOOD COUNT COMPLETE AUTOMATED <td>CBC</td><td>STAT</t d><td>05/02/2020 10:11 PM EDT</td><td></td><td> </td> 05/03/2020 02:11:00 AM EDT [facility] POTASSIUM SERUM PLASMA/WHOLE BLOOD <td>POTASSIUM</td><td>Routine</td><td>05/02/2020 10:11 PM EDT</td><td></td><td> </td> 05/03/2020 02:11:00 AM EDT [facility] GLUC BLD GLUC MNTR DEV CLEARED FDA SPEC HOME USE <td>P OCT GLUCOSE</td><td>Routine</td><td>05/02/2020 10:07 PM EDT</td><td></td><td> </td> 05/03/2020 02:07:00 AM EDT [facility] GLUC BLD GLUC MNTR DEV CLEARED FDA SPEC HOME USE <td>P OCT GLUCOSE</td><td>Routine</td><td>05/02/2020 8:20 PM EDT</td><td></td><td> </td> 05/03/2020 12:20:00 AM EDT [facility] POC ARTERIAL BLOOD GAS <td>POC ARTERIAL BLOOD GAS</td><td>Routine</td><td>05/02/2020 7:56 PM EDT</td><td></td><td> </td> 05/02/2020 11:56:00 PM EDT [facility] GLUC BLD GLUC MNTR DEV CLEARED FDA SPEC HOME USE <td>P OCT GLUCOSE</td><td>Routine</td><td>05/02/2020 7:17 PM EDT</td><td></td><td> </td> 05/02/2020 11:17:00 PM EDT [facility] GLUC BLD GLUC MNTR DEV CLEARED FDA SPEC HOME USE <td>P OCT GLUCOSE</td><td>Routine</td><td>05/02/2020 5:07 PM EDT</td><td></td><td> </td> 05/02/2020 09:07:00 PM EDT [facility] POTASSIUM SERUM PLASMA/WHOLE BLOOD <td>POTASSIUM</td>< td>STAT</td><td>05/02/2020 5:06 PM EDT</td><td></td><td> </td> 05/02/2020 09:06:00 PM EDT [facility] GLUC BLD GLUC MNTR DEV CLEARED FDA SPEC HOME USE <td>P OCT GLUCOSE</td><td>Routine</td><td>05/02/2020 3:18 PM EDT</td><td></td><td> </td> 05/02/2020 07:18:00 PM EDT [facility] LEVEL IV SURG PATHOLOGY GROSS&MICROSCOPIC EXAM <td>[facility] HISTOLOGY</td><td>Routine</td><td>05/02/2020 2:43 PM EDT</td><td></td><td> </td> 05/02/2020 06:43:00 PM EDT [facility] GLUC BLD GLUC MNTR DEV CLEARED FDA SPEC HOME USE <td>P OCT GLUCOSE</td><td>Routine</td><td>05/02/2020 1:36 PM EDT</td><td></td><td> </td> 05/02/2020 05:36:00 PM EDT [facility] POC ARTERIAL BLOOD GAS <td>POC ARTERIAL BLOOD GAS</td><td>Routine</td><td>05/02/2020 1:21 PM EDT</td><td></td><td> </td> 05/02/2020 05:21:00 PM EDT [facility] XR CHEST PORTABLE <td>XR CHEST PORTABLE</td><t d>STAT</td><td>05/02/2020 1:15 PM EDT</td><td></td><td> </td> 05/02/2020 05:15:52 PM EDT [facility] POC CALCIUM BG <td>POC CALCIUM BG</td><td>R outine</td><td>05/02/2020 1:15 PM EDT</td><td></td><td> </td> 05/02/2020 05:15:00 PM EDT [facility] GLUC BLD GLUC MNTR DEV CLEARED FDA SPEC HOME USE <td>P OCT GLUCOSE</td><td>Routine</td><td>05/02/2020 1:09 PM EDT</td><td></td><td> </td> 05/02/2020 05:09:00 PM EDT [facility] ECG ROUTINE ECG W/LEAST 12 LDS TRCG ONLY W/O I&R <td>E CG 12- LEAD</td><td>Routine</td><td>05/02/2020 1:06 PM EDT</td><td></td><td></td> 05/02/2020 05:06:[address] [facility] BLOOD COUNT COMPLETE AUTOMATED <td>CBC</td><td>STAT</t d><td>05/02/2020 1:06 PM EDT</td><td></td><td> </td> 05/02/2020 05:06:00 PM EDT [facility] MAGNESIUM <td>MAGNESIUM</td><td>STAT</ td><td>05/02/2020 1:06 PM EDT</td><td></td><td> </td> 05/02/2020 05:06:00 PM EDT [facility] CALCIUM IONIZED <td>CALCIUM, IONIZED</td><td >STAT</td><td>05/02/2020 1:06 PM EDT</td><td></td><td> </td> 05/02/2020 05:06:00 PM EDT [facility] BASIC METABOLIC PANEL CALCIUM TOTAL <td>BASIC METABOLI C PANEL</td><td>STAT</td><td>05/02/2020 1:06 PM EDT</td><td></td><td> </td> 05/02/2020 05:06:00 PM EDT [facility] POC ACT <td>POC ACT</td><td>Routine< /td><td>05/02/2020 11:53 AM EDT</td><td></td><td> </td> 05/02/2020 03:53:00 PM EDT [facility] POC ARTERIAL BLOOD GAS W LYTES <td>POC ARTERIAL BLOOD GAS W LYTES</td><td>Routine</td><td>05/02/2020 11:53 AM EDT</td><td></td><td> </td> 05/02/2020 03:53:00 PM EDT [facility] THROMBOPLASTIN TIME PARTIAL PLASMA/WHOLE BLOOD <td>APTT</td><td>Routine</td><td>05/02/2020 11:52 AM EDT</td><td></td><td> </td> 05/02/2020 03:52:00 PM EDT [facility] PROTHROMBIN TIME <td>PROTIME-INR</td><td>Rout ine</td><td>05/02/2020 11:52 AM EDT</td><td></td><td> </td> 05/02/2020 03:52:00 PM EDT [facility] POC VENOUS BLOOD GAS W LYTES <td>POC VENOUS BLOOD GAS W LYTES</td><td>Routine</td><td>05/02/2020 11:25 AM EDT</td><td></td><td> </td> 05/02/2020 03:25:00 PM EDT [facility] POC ACT <td>POC ACT</td><td>Routine< /td><td>05/02/2020 11:24 AM EDT</td><td></td><td> </td> 05/02/2020 03:24:00 PM EDT [facility] POC VENOUS BLOOD GAS W LYTES <td>POC VENOUS BLOOD GAS W LYTES</td><td>Routine</td><td>05/02/2020 10:36 AM EDT</td><td></td><td> </td> 05/02/2020 02:36:00 PM EDT [facility] POC ACT <td>POC ACT</td><td>Routine< /td><td>05/02/2020 10:36 AM EDT</td><td></td><td> </td> 05/02/2020 02:36:00 PM EDT [facility] POC ACT <td>POC ACT</td><td>Routine< /td><td>05/02/2020 10:08 AM EDT</td><td></td><td> </td> 05/02/2020 02:08:00 PM EDT [facility] POC ARTERIAL BLOOD GAS W LYTES <td>POC ARTERIAL BLOOD GAS W LYTES</td><td>Routine</td><td>05/02/2020 10:08 AM EDT</td><td></td><td> </td> 05/02/2020 02:08:00 PM EDT [facility] POC ARTERIAL BLOOD GAS W LYTES <td>POC ARTERIAL BLOOD GAS W LYTES</td><td>Routine</td><td>05/02/2020 9:11 AM EDT</td><td></td><td> </td> 05/02/2020 01:11:00 PM EDT [facility] POC ACT <td>POC ACT</td><td>Routine< /td><td>05/02/2020 9:10 AM EDT</td><td></td><td> </td> 05/02/2020 01:10:00 PM EDT [facility] RPLCMT PROST AORTIC VALVE XCP HOMOGRF/STENT <td>REPLAC EMENT, AORTIC VALVE, MINIMALLY INVASIVE, RIGHT THORACOTOMY APPROACH, USING HEARTPORT TECHNIQUE</td><td></td><td>05/02/2020 8:34 AM EDT</td><td> Nonrheumatic aortic valve insufficiency</td><td></td> 05/02/2020 12:34:00 PM EDT - 05/02/2020 05:34:00 PM EDT Nonrheumatic aortic valve insufficiency [facility] Nonrheumatic aortic valve insufficiency ECG TRANSESOPHAG R-T 2D W/PRB IMG ACQUISJ I&R <td>ECHO CARDIOGRAM TRANSESOPHAGEAL</td><td>Routine</td><td>05/02/2020 7:53 AM EDT</td><td></td><td></td> 05/02/2020 11:53:[address] [facility] ROOM TEMP AB SCREEN <td>ROOM TEMP AB SCREEN</td> <td>Routine</td><td>05/02/2020 7:14 AM EDT</td><td></td><td> </td> 05/02/2020 11:14:00 AM EDT [facility] BLOOD TYPING ABO <td>TYPE AND SCREEN</td><td> Routine</td><td>05/02/2020 7:14 AM EDT</td><td></td><td> </td> 05/02/2020 11:14:00 AM EDT [facility] GLUC BLD GLUC MNTR DEV CLEARED FDA SPEC HOME USE <td>P OCT GLUCOSE</td><td>Routine</td><td>05/02/2020 6:36 AM EDT</td><td></td><td> </td> 05/02/2020 10:36:00 AM EDT [facility] URNLS DIP STICK/TABLET RGNT AUTO W/O MICROSCOPY <td>UR INALYSIS W/O MICRO</td><td>Routine</td><td>04/27/2020 12:00 PM EDT</td><td> Nonrheumatic aortic valve insufficiency</td><td> </td> 04/27/2020 04:00:00 PM EDT Nonrheumatic aortic valve insufficiency [facility] Nonrheumatic aortic valve insufficiency ECG ROUTINE ECG W/LEAST 12 LDS TRCG ONLY W/O I&R <td>E CG 12- LEAD</td><td>Routine</td><td>04/27/2020 11:31 AM EDT</td><td> Nonrheumatic aortic valve insufficiency</td><td></td> 04/27/2020 03:31:21 PM EDT Nonrheumatic aortic valve insufficiency [facility] Nonrheumatic aortic valve insufficiency NT PRO BNP <td>NT PRO BNP</td><td>Routi ne</td><td>04/27/2020 11:20 AM EDT</td><td> Nonrheumatic aortic valve insufficiency</td><td> </td> 04/27/2020 03:20:00 PM EDT Nonrheumatic aortic valve insufficiency [facility] Nonrheumatic aortic valve insufficiency THROMBOPLASTIN TIME PARTIAL PLASMA/WHOLE BLOOD <td>APTT</td><td>Routine</td><td>04/27/2020 11:20 AM EDT</td><td> Nonrheumatic aortic valve insufficiency</td><td> </td> 04/27/2020 03:20:00 PM EDT Nonrheumatic aortic valve insufficiency [facility] Nonrheumatic aortic valve insufficiency PROTHROMBIN TIME <td>PROTIME-INR</td><td>Rout ine</td><td>04/27/2020 11:20 AM EDT</td><td> Nonrheumatic aortic valve insufficiency</td><td> </td> 04/27/2020 03:20:00 PM EDT Nonrheumatic aortic valve insufficiency [facility] Nonrheumatic aortic valve insufficiency BLOOD COUNT COMPLETE AUTO&AUTO DIFRNTL WBC COUNT <td>C BC AND DIFFERENTIAL</td><td>Routine</td><td>04/27/2020 11:20 AM EDT</td><td> Nonrheumatic aortic valve insufficiency</td><td> </td> 04/27/2020 03:20:00 PM EDT Nonrheumatic aortic valve insufficiency [facility] Nonrheumatic aortic valve insufficiency HEMOGLOBIN GLYCOSYLATED A1C <td>HEMOGLOBIN A1C</td><td>Routine</td><td>04/27/2020 11:20 AM EDT</td><td> Nonrheumatic aortic valve insufficiency</td><td> </td> 04/27/2020 03:20:00 PM EDT Nonrheumatic aortic valve insufficiency [facility] Nonrheumatic aortic valve insufficiency COMPREHENSIVE METABOLIC PANEL <td>COMPREHENSIVE METABO LIC PANEL</td><td>Routine</td><td>04/27/2020 11:20 AM EDT</td><td> Nonrheumatic aortic valve insufficiency</td><td> </td> 04/27/2020 03:20:00 PM EDT Nonrheumatic aortic valve insufficiency [facility] Nonrheumatic aortic valve insufficiency POC ARTERIAL BLOOD GAS <td>POC ARTERIAL BLOOD GAS</td><td>Routine</td><td>04/02/2020 12:51 PM EST</td><td></td><td> </td> 04/02/2020 05:51:00 PM EST [facility] ECG ROUTINE ECG W/LEAST 12 LDS W/I&R <td>POCT AMB EKG</td><td>Routine</td><td>03/15/2020 11:12 AM EST</td><td> Aortic valve stenosis, etiology of cardiac valve disease unspecified</td><td> </td> 03/15/2020 04:12:00 PM EST Aortic valve stenosis, etiology of cardiac valve disea se unspecified [facility] Aortic valve stenosis, etiology of cardi [...] stenosis, etiology of cardiac valve disease unspecified [facility] Cigarette smoker Essential hypertension Hyperlipidemia, unspecified hyperlipidem ia type Peripheral vascular disease Aortic valve stenosis, etiology of cardi ac valve disease unspecified ECG ROUTINE ECG W/LEAST 12 LDS TRCG ONLY W/O I&R <td>E CG 12- LEAD</td><td>Routine</td><td>02/24/2020 6:33 AM EST</td><td></td><td></td> 02/24/2020 11:33:08 AM EST [facility] BLOOD COUNT COMPLETE AUTOMATED <td>CBC</td><td>STAT</t d><td>02/24/2020 6:31 AM EST</td><td></td><td> </td> 02/24/2020 11:31:00 AM EST [facility] BASIC METABOLIC PANEL CALCIUM TOTAL <td>BASIC METABOLI C PANEL</td><td>STAT</td><td>02/24/2020 6:31 AM EST</td><td></td><td> </td> 02/24/2020 11:31:00 AM EST [facility] ECG ROUTINE ECG W/LEAST 12 LDS W/I&R <td>POCT AMB EKG</td><td>Routine</td><td>02/09/2020 2:34 PM EST</td><td> Aortic valve stenosis, etiology of cardiac valve disease unspecified</td><td> </td> 02/09/2020 07:34:00 PM EST Aortic valve stenosis, etiology of cardiac valve disea se unspecified [facility] Aortic valve stenosis, etiology of cardi ac valve disease unspecified Results ID Date Data Source BREAST U/S UNILATERAL COMPLETE 10/10/2020 12:00:00 AM EDT eC W1 ([facility]) Name Value Range Interpretation Code Description Data Debbie rce(s) Supporting Document(s) BREAST U/S UNILATERAL COMPLETE eCW1 ([facility]) ID Date Data Source [email or web address] 10/08/2020 12:00:00 AM EDT eCW1 ([facility]) Name Value Range Interpretation Code Description Data Debbie rce(s) Supporting Document(s) 94 26-388 FERRITIN eCW1 ([facility]) ID Date Data Source IRON (FE) 10/08/2020 12:00:00 AM EDT eCW1 ([facility]) Name Value Range Interpretation Code Description Data Debbie rce(s) Supporting Document(s) 83 65-175 IRON (FE) eCW1 ([facility]) ID Date Data Source Comprehensive Metabolic Profile (CMP) 10/08/2020 12:00:00 AM EDT eCW1 ([facility]) Name Value Range Interpretation Code Description Data Debbie rce(s) Supporting Document(s) 116 70-100 GLUCOSE, FASTING eCW1 ([facility]) 10 7-18 BLOOD UREA NITROGEN eCW1 ([facility]) 0.71 0.70-1.30 CREATININE FOR GFR eCW1 ([facility]) 135 136-145 SODIUM LEVEL eCW1 ([facility]) > 60.0 >49 GLOMERULAR FILTRATION RATE eCW 1 ([facility]) 4.3 3.5-5.1 POTASSIUM SERUM eCW1 ([facility]) 32 21-32 CARBON DIOXIDE LEVEL eCW1 ([facility]) 9.7 8.8-10.2 CALCIUM LEVEL eCW1 ([facility]) 96 98-107 CHLORIDE LEVEL eCW1 ([facility]) 36 7-37 AST/SGOT eCW1 ([facility]) 50 12-78 ALT/SGPT eCW1 ([facility]) 7.3 6.4-8.2 TOTAL PROTEIN eCW1 ([facility]) 148 45-117 ALKALINE PHOSPHATASE eCW1 ([facility]) 0.6 0.2-1.0 BILIRUBIN,TOTAL eCW1 ([facility]) 1.3 ALBUMIN/GLOBULIN RATIO eCW1 ([facility]) 4.1 3.2-5.2 ALBUMIN eCW1 ([facility]) ID Date Data Source CPK CREATINE PHOSPHOKINASE 10/08/2020 12:00:00 AM EDT eCW1 ( [facility]) Name Value Range Interpretation Code Description Data Debbie rce(s) Supporting Document(s) 186 39-308 CPK CREATINE PHOSPHOKINASE eCW 1 ([facility]) ID Date Data Source CBC with Differential 10/08/2020 12:00:00 AM EDT eCW1 ([facility]) Name Value Range Interpretation Code Description Data Debbie rce(s) Supporting Document(s) 7.7 4.0-10.0 WHITE BLOOD COUNT eCW1 ([facility]) 16.8 13.5-17.5 HEMOGLOBIN eCW1 ([facility]) 5.38 4.30-6.10 RED BLOOD COUNT eCW1 ([facility]) 31.2 27.0-33.0 MEAN CORPUSCULAR HEMOGLOB IN eCW1 ([facility]) 48.0 42.0-52.0 HEMATOCRIT eCW1 ([facility]) 89.2 80.0-96.0 MEAN CORPUSCULAR VOLUME e CW1 ([facility]) 14.6 11.5-14.5 RED CELL DISTRIBUTION WID TH eCW1 ([facility]) 35.0 32.0-36.5 MEAN CORPUSCULAR HGB CONC eCW1 ([facility]) 319 150-450 PLATELET COUNT, AUTOMATED eCW1 ([facility]) 17.7 24.0-44.0 LYMPH % eCW1 ([facility]) 67.4 36.0-66.0 NEUTROPHILS % eCW1 ([facility]) 12.7 2.0-8.0 MONO % eCW1 ([facility]) 0.6 0.0-1.0 BASO % eCW1 ([facility]) 5.2 1.5-8.5 NEUTROPHILS # eCW1 ([facility]) 0.8 0.0-3.0 EOS % eCW1 ([facility]) 1.4 1.5-5.0 LYMPH # eCW1 ([facility]) 1.0 0.0-0.8 MONO # eCW1 ([facility]) 0.1 0.0-0.5 EOS # eCW1 ([facility]) 0.1 0.0-0.2 BASO # eCW1 ([facility]) ID Date Data Source LIPID PANEL (CARDIAC RISK) 10/08/2020 12:00:00 AM EDT eCW1 ( [facility]) Name Value Range Interpretation Code Description Data Debbie rce(s) Supporting Document(s) Triglyceride [Mass/volume] in Serum or Plasma by calculation 100 <150 TRIGLYCERIDES LEVEL eCW1 ([facility]) Cholesterol [Moles/volume] in Serum or Plasma 181 <200 CHOLESTEROL LEVEL eCW1 ([facility]) Cholesterol in HDL [Moles/volume] in Serum or Plasma 54 >40 HDL CHOLESTEROL eCW1 ([facility]) Cholesterol in LDL [Mass/volume] in Serum or Plasma by calculation 107 <100 LDL CHOLESTEROL [facility] ([facility]) 127 NON-HDL-C eCW1 ([facility]) 3.351 <5 CHOLESTEROL RISK RATIO eCW ([facility]) ID Date Data Source FREE T4 & TSH PANEL 10/08/2020 12:00:00 AM EDT eCW1 ([facility]) Name Value Range Interpretation Code Description Data Debbie rce(s) Supporting Document(s) 1.310 0.358-3.740 THYROID STIMULATING HORM ONE eCW1 ([facility]) 0.84 0.76-1.46 FREE T4 eCW1 ([facility]) ID Date Data Source VITAMIN B12 LEVEL 08/07/2020 12:00:00 AM EDT eCW1 ([facility]) Name Value Range Interpretation Code Description Data Debbie rce(s) Supporting Document(s) 388 420-741 VITAMIN B12 LEVEL eCW1 ([facility]) ID Date Data Source [id number] 08/07/2020 12:00:00 AM EDT eCW1 ([facility]) Name Value Range Interpretation Code Description Data Debbie rce(s) Supporting Document(s) Hemoglobin A1c/Hemoglobin.total in Blood 5.4 HEMOGLOBIN A1c eCW1 ([facility]) ID Date Data Source [id number] 05/18/2020 10:46:01 AM EDT [facility] INFORMATIONPatient MRN Name Date of Age Gend*PT [id number] Hiral Ferreira 1960 60 years M ---PT Location Admission Date/Time Visit ID Attending Provider --- --- --- --- EPI ID CSN Admitting Provider [id number] ---Cardiothoracic Surgery Post Operative Follow UpName: Hiral Ferreira : 1960MRN: [id number] Visit Date: May 18SSESSMENT:Patient is 2 weeks s/p AVR. From a cardiac surgery standpoint, patient is doingwell. VSS and incisions are healed.PLAN:-No lifting, pushing, or pulling > 15 lbs x 6 weeks from surgery date.-The patient was educated on endocarditis prophylaxis.-call with any concerns regarding incisions, fevers, or chillsFollow up with [facility]: Dr. Villaseñor and PCP: Rob Parr (Vascular) [...] pain or palpitations. Patient hasfollowed up with shiatsu therapist who is managing and following lab work [...] moderate (CAROLA 1.3cm2, mean gradient 23mmHg) - [facility] Echocardiogram 01/08/2016 Normal LV size with [...] Laterality: N/A; CERVICAL FUSION 2003 COLONOSCOPY 04/06/[address] [facility] [address] Wilhelm. Preparation of the colon was fair. Four non-bleeding colonicangioectasias. Treated with argon plasma coagulation. perianal skin tags.Diverticulosis in the sigmoid colon and descending colon. sm all internalhemorrhoids. ESOPHAGOGASTRODUODENOSCOPY 04/06/[address] [facility] [address] Wilhelm. Normal esophagus, normal stomach. [...] rce(s) Supporting Document(s) ID Date Data Source [id number] 05/13/2020 09:30:13 PM EDT [facility]FORMATIONPatient MRN Name Date of Age Gend*PT [id number] Hiral Ferreira 1960 60 years M IPPT Location Admission Date/Time Visit ID Attending [id number] 05/02/20 0524 --- --- EPI ID CSN Admitting Provider [id number] Oneil Genao MD([id number]) [place] [address] OPERATIVE REPORT OPNAME: HIRAL FERREIRA Elke Smith#: [id number] #: [id number] ADMISSION DATE: 05/02/2020OB: 1960 SEX: M PT TYPE: I SURACCT #: [id number] CARE PHYSICIAN: ROB DIXONDATE OF OPERATION: 0 05/02/2020URGEON:Oneil Genao MD.ELA TEACHER:RAND Peralta.PREOPERATIVE DIAGNOSIS:Aortic valve stenosis and aortic regurgitation.POSTOPERATIVE [...] anesthesia was achieved. The patient had a Sierraville-Ganzcatheter, radial arterial line placed. He was then sterilized and drapedin standard surgical fashion. We then performed a small thoracotomyincision in the second intercostal space and the right lung was deflated.Pericardium was then opened. Considering the patient has significantperipheral vascular disease; therefore, we decided to direct the cannula tothe ascending aorta. A 17-[employer] cannula was then usedSeldinger technique with [...] stable upon finishing surgery.BRENNEN Ladd/NTS Job #: [id number] DOC #: [id number]: MD Marla Reyna MD Name Value Range Interpretation Code Description Data Debbie rce(s) Supporting Document(s) ID Date Data Source [id number] 05/13/2020 09:27:42 PM EDT [facility] NT INFORMATIONPatient MRN Name Date of Age Gend*PT [id number] Hiral Ferreira 1960 60 years M IPPT Location Admission Date/Time Visit ID Attending [id number] 05/02/20 0524 --- --- EPI ID CSN Admitting Provider [id number] Oneil Genao MD([id number]) Attestation signed by Oneil Genao MD at 05/13/2020 9:27 PMI saw and evaluated the patient and reviewed Hiral's note. I agree with thehistory, physical and medical decision makingSignature: THEODORA Laddate: May 13, 2020Time: 9:27 PM --Surgical Discharge SummaryHiral StallworthN: [id number] date: 05/02/2020dmitting Physician: THEODORA Laddischarge date and time:Discharge Orders Placed(From admission, onward) NoneDischarge Physician: Darian Sky Diagnosis: Nonrheumatic aortic valve insufficiencySecondary Diagnoses:Active Hospital Problems Diagnosis Date Noted Nonrheumatic aortic valve insufficiency 02/28/2020 Added automatically from request for surgery [id number] Hospital ProblemsNo resolved problems to display.Discharge Medications: [...] Day. [facility] The [...] restarted in a couple of months if needed.[facility] sent off to see if patient has [...] moderate (CAROLA 1.3cm2, mean gradient 23mmHg) - [facility] Echocardiogram 01/08/2016 Normal LV size with [...] view CXRFindings: The endotracheal tube, nasogastric tube, Sierraville-Julia catheter, chesttubes have been removed. There is [...] rce(s) Supporting Document(s) ID Date Data Source [id number] 05/06/2020 12:42:45 PM EDT [facility] Name Value Range Interpretation Code Description Data Debbie rce(s) Supporting Document(s) STOOL OCCULT BLOOD (NEG) [facility] ID Date Data Source [id number] 05/06/2020 03:34:16 AM EDT [facility] Name Value Range Interpretation Code Description Data Debbie rce(s) Supporting Document(s) MAGNESIUM 2.5 mg/dL (1.7-2.4) H [facility] ID Date Data Source [id number] 05/06/2020 03:34:16 AM EDT [facility] Name Value Range Interpretation Code Description Data Debbie rce(s) Supporting Document(s) SODIUM 137 mmol/L (136-145) [facility] POTASSIUM 3.8 mmol/L (3.6-5.2) [facility] CHLORIDE 103 mmol/L (100-108) [facility] CO2 28 mmol/L (22-31) [facility] ANION GAP 6 mmol/L (7-16) L [facility] UREA NITROGEN 19 mg/dL (7-24) [facility] CREATININE 0.75 mg/dL (0.80-1.30) L [facility] BUN/CREAT RATIO 25.3 RATIO (10.0-20.0) H [facility] GLUCOSE 91 mg/dL (70-99) [facility] CALCIUM 8.1 mg/dL (8.4-10.2) L [facility] GFR >60 ml/min/1.73m2 (>59) [facility] GFR ( AMER) >60 ml/min/1.73m2 (>59) [facility] GFR INTERPRETATION [facility] --NORMAL KIDNEY FUNCTION OR MILD DISEASE - GFR >OR= 60CHRONIC KIDNEY DISEASE - GFR 15 - 59RENAL FAILURE - GFR <15 Est. GFR calculation based on the MDRDstudy equation, which assumes a steadystate for creatinine. Est. GFR should notbe used for medication dosing. ID Date Data Source [id number] 05/06/2020 03:10:40 AM EDT [facility] Name Value Range Interpretation Code Description Data Debbie rce(s) Supporting Document(s) WBC 7.4 10*3/uL (4.1-11.0) [facility] RBC 3.03 10*6/uL (4.60-6.10) L [facility] HGB 7.6 g/dL (13.5-18.0) L [facility] HCT 23.0 % (41.0-53.0) L [facility] MCV 76.1 fL (80.0-95.0) L [facility] MCH 25.1 pg (27.0-32.0) L [facility] MCHC 33.1 g/dL (32.0-36.0) [facility] RDW 19.2 % (10.5-14.5) H [facility] PLT 274 10*3/uL (150-450) [facility] MPV 7.0 fL (7.1-10.7) L [facility] ID Date Data Source [id number] 05/05/2020 01:29:39 PM EDT [facility] Name Value Range Interpretation Code Description Data Debbie rce(s) Supporting Document(s) POC NOVA GLU 95 mg/dL (70-99) [facility] ID Date Data Source [id number] 05/05/2020 08:33:12 AM EDT [facility] Name Value Range Interpretation Code Description Data Debbie rce(s) Supporting Document(s) POC NOVA GLU 75 mg/dL (70-99) [facility] ID Date Data Source [id number] 05/05/2020 07:27:48 AM EDT [facility] Name Value Range Interpretation Code Description Data Debbie rce(s) Supporting Document(s) HCT 23.2 % (41.0-53.0) L [facility] ID Date Data Source [id number] 05/05/2020 07:27:48 AM EDT [facility] Name Value Range Interpretation Code Description Data Debbie rce(s) Supporting Document(s) HGB 7.8 g/dL (13.5-18.0) L [facility] ID Date Data Source [id number] 05/05/2020 03:57:22 AM EDT [facility] Name Value Range Interpretation Code Description Data Debbie rce(s) Supporting Document(s) WBC 7.4 10*3/uL (4.1-11.0) [facility] RBC 2.83 10*6/uL (4.60-6.10) L [facility] HGB 7.1 g/dL (13.5-18.0) L [facility] HCT 21.5 % (41.0-53.0) L [facility] MCV 75.9 fL (80.0-95.0) L [facility] MCH 25.0 pg (27.0-32.0) L [facility] MCHC 33.0 g/dL (32.0-36.0) [facility] RDW 19.0 % (10.5-14.5) H [facility] PLT 212 10*3/uL (150-450) [facility] MPV 7.0 fL (7.1-10.7) L [facility] ID Date Data Source [id number] 05/05/2020 03:54:56 AM EDT [facility] Name Value Range Interpretation Code Description Data Debbie rce(s) Supporting Document(s) MAGNESIUM 2.5 mg/dL (1.7-2.4) H [facility] ID Date Data Source [id number] 05/05/2020 03:54:56 AM EDT [facility] Name Value Range Interpretation Code Description Data Debbie rce(s) Supporting Document(s) SODIUM 135 mmol/L (136-145) L [facility] POTASSIUM 4.0 mmol/L (3.6-5.2) [facility] CHLORIDE 98 mmol/L (100-108) L [facility] CO2 29 mmol/L (22-31) [facility] ANION GAP 8 mmol/L (7-16) [facility] UREA NITROGEN 26 mg/dL (7-24) H [facility] CREATININE 0.98 mg/dL (0.80-1.30) [facility] BUN/CREAT RATIO 26.5 RATIO (10.0-20.0) H [facility] GLUCOSE 86 mg/dL (70-99) [facility] CALCIUM 7.8 mg/dL (8.4-10.2) L [facility] GFR >60 ml/min/1.73m2 (>59) [facility] GFR ( AMER) >60 ml/min/1.73m2 (>59) [facility] GFR INTERPRETATION [facility] --NORMAL KIDNEY FUNCTION OR MILD DISEASE - GFR >OR= 60CHRONIC KIDNEY DISEASE - GFR 15 - 59RENAL FAILURE - GFR <15 Est. GFR calculation based on the MDRDstudy equation, which assumes a steadystate for creatinine. Est. GFR should notbe used for medication dosing. ID Date Data Source [id number] 05/04/2020 05:10:52 PM EDT [facility] Name Value Range Interpretation Code Description Data Debbie rce(s) Supporting Document(s) POC NOVA GLU 76 mg/dL (70-99) [facility] ID Date Data Source [id number] 05/04/2020 10:36:35 AM EDT [address] [address]Cvolgkr Name: NICOLÁS GROVERDOB: 1960ex: MOrdering Provider: HIRAL Light Prov: HIRAL Finley Provider: Procedure Performed: XR CHEST PA AND LATERALExam Date: 05/04/2020 10:32MRN: [id number] Number: [id number] Class: InpatientAccount #: [id number] for Exam: s/p CT removalTechnique: PA and lateral views obtained.Comparison: May 02, 2020Findings: The endotracheal tube, nasogastric tube, Sierraville-Julia catheter, chest tubes have been removed. There [...] DANE DAS On 05/04/2020 10:36 AMWorkstation ID: [id number] Name Value Range Interpretation Code Description Data Debbie rce(s) Supporting Document(s) ID Date Data Source [id number] 05/04/2020 09:42:41 AM EDT [facility] Name Value Range Interpretation Code Description Data Debbie rce(s) Supporting Document(s) POC NOVA GLU 103 mg/dL (70-99) H [facility] [place] [facility] ID Date Data Source [id number] 05/04/2020 06:26:43 AM EDT [facility] Name Value Range Interpretation Code Description Data Debbie rce(s) Supporting Document(s) EKG [facility] RBAXKg6iTeOGUnRcr8LkMsEqWFPoJC1pbxe6Z4C2uPAkK3YbwWJpc1yuD7AlX1OvUZMnVXUDBT4BtREy jb2 [file] Yo+ncYO2u5YENGV+0IwRztgPnjECGvtBNEZIYz [file] AwMDAgbiAKMDAwMDAwMTYwOSAwMDAwMCBuIAowMDAw SMQrYzE1SMZiHMYjIF7sKqPaSLLaEBH1OOBjSRWlZLRwxuQFKOMxUGOuAGI2KgJaELVpUDYiFFreZEBh LYY1KgExHPLjNBYhGJ3cGfPgFPYiYZj5IdPxQGUrMAAjorEXJHYsEHRmAFH2XiZcFVLpVVLdJNpfUMDc QMGjUHKlGBB7EBW4NOMxXpAqVZzmETGKHKkQO5Vaei BsWrfDH0puGb9fMpQsIPEIT5Loz3OnZTCmWKMASn1+ZyZ6NGX0lGLhTicxSUX6ZkkMCVLDG1L= ID Date Data Source [id number] 05/04/2020 03:27:07 AM EDT [facility] Name Value Range Interpretation Code Description Data Debbie rce(s) Supporting Document(s) MAGNESIUM 2.9 mg/dL (1.7-2.4) H [facility] ID Date Data Source [id number] 05/04/2020 03:27:07 AM EDT [facility] Name Value Range Interpretation Code Description Data Debbie rce(s) Supporting Document(s) SODIUM 135 mmol/L (136-145) L [facility] POTASSIUM 3.9 mmol/L (3.6-5.2) [facility] CHLORIDE 100 mmol/L (100-108) [facility] CO2 27 mmol/L (22-31) [facility] ANION GAP 8 mmol/L (7-16) [facility] UREA NITROGEN 29 mg/dL (7-24) H [facility] CREATININE 1.26 mg/dL (0.80-1.30) [facility] BUN/CREAT RATIO 23.0 RATIO (10.0-20.0) H [facility] GLUCOSE 107 mg/dL (70-99) H [facility] CALCIUM 8.3 mg/dL (8.4-10.2) L [facility] GFR 58 ml/min/1.73m2 (>59) L [facility] GFR ( AMER) >60 ml/min/1.73m2 (>59) [facility] GFR INTERPRETATION [facility] --NORMAL KIDNEY FUNCTION OR MILD DISEASE - GFR >OR= 60CHRONIC KIDNEY DISEASE - GFR 15 - 59RENAL FAILURE - GFR <15 Est. GFR calculation based on the MDRDstudy equation, which assumes a steadystate for creatinine. Est. GFR should notbe used for medication dosing. ID Date Data Source [id number] 05/04/2020 02:58:40 AM EDT [facility] Name Value Range Interpretation Code Description Data Debbie rce(s) Supporting Document(s) WBC 11.2 10*3/uL (4.1-11.0) H [facility] RBC 3.18 10*6/uL (4.60-6.10) L [facility] HGB 8.0 g/dL (13.5-18.0) L [facility] HCT 24.2 % (41.0-53.0) L [facility] MCV 75.9 fL (80.0-95.0) L [facility] MCH 25.3 pg (27.0-32.0) L [facility] MCHC 33.3 g/dL (32.0-36.0) [facility] RDW 19.6 % (10.5-14.5) H [facility] PLT 219 10*3/uL (150-450) [facility] MPV 6.8 fL (7.1-10.7) L [facility] ID Date Data Source [id number] 05/03/2020 06:30:48 PM EDT [facility] Name Value Range Interpretation Code Description Data Debbie rce(s) Supporting Document(s) POC NOVA GLU 135 mg/dL (70-99) H [facility] ID Date Data Source [id number] 05/03/2020 11:29:43 AM EDT [facility] Name Value Range Interpretation Code Description Data Debbie rce(s) Supporting Document(s) POC NOVA GLU 160 mg/dL (70-99) H [facility] ID Date Data Source [id number] 05/03/2020 07:26:38 AM EDT [facility] Name Value Range Interpretation Code Description Data Debbie rce(s) Supporting Document(s) POC NOVA GLU 197 mg/dL (70-99) H [facility] ID Date Data Source [id number] 05/03/2020 02:27:29 AM EDT [facility] Name Value Range Interpretation Code Description Data Debbie rce(s) Supporting Document(s) POC NOVA GLU 166 mg/dL (70-99) H [facility] ID Date Data Source [id number] 05/03/2020 03:11:40 AM EDT [facility] Name Value Range Interpretation Code Description Data Debbie rce(s) Supporting Document(s) MAGNESIUM 2.6 mg/dL (1.7-2.4) H [facility] ID Date Data Source [id number] 05/03/2020 03:11:40 AM EDT [facility] Name Value Range Interpretation Code Description Data Debbie rce(s) Supporting Document(s) SODIUM 137 mmol/L (136-145) [facility] POTASSIUM 4.2 mmol/L (3.6-5.2) [facility] CHLORIDE 104 mmol/L (100-108) [facility] CO2 25 mmol/L (22-31) [facility] ANION GAP 8 mmol/L (7-16) [facility] UREA NITROGEN 18 mg/dL (7-24) [facility] CREATININE 0.91 mg/dL (0.80-1.30) [facility] BUN/CREAT RATIO 19.8 RATIO (10.0-20.0) [facility] GLUCOSE 164 mg/dL (70-99) H [facility] CALCIUM 8.3 mg/dL (8.4-10.2) L [facility] GFR >60 ml/min/1.73m2 (>59) [facility] GFR ( AMER) >60 ml/min/1.73m2 (>59) [facility] GFR INTERPRETATION [facility] --NORMAL KIDNEY FUNCTION OR MILD DISEASE - GFR >OR= 60CHRONIC KIDNEY DISEASE - GFR 15 - 59RENAL FAILURE - GFR <15 Est. GFR calculation based on the MDRDstudy equation, which assumes a steadystate for creatinine. Est. GFR should notbe used for medication dosing. ID Date Data Source [id number] 05/03/2020 03:01:38 AM EDT [facility] Name Value Range Interpretation Code Description Data Debbie rce(s) Supporting Document(s) CALCIUM IONIZED 4.92 mg/dL (4.64-5.28) [facility] IONIZED CALCIUM NORMALIZED TO PH 7.40 AN D 37 DEGREES C. ID Date Data Source [id number] 05/03/2020 02:46:00 AM EDT [facility] Name Value Range Interpretation Code Description Data Debbie rce(s) Supporting Document(s) WBC 13.1 10*3/uL (4.1-11.0) H [facility] RBC 3.72 10*6/uL (4.60-6.10) L [facility] HGB 9.3 g/dL (13.5-18.0) L [facility] HCT 28.1 % (41.0-53.0) L [facility] MCV 75.7 fL (80.0-95.0) L [facility] MCH 25.0 pg (27.0-32.0) L [facility] MCHC 33.1 g/dL (32.0-36.0) [facility] RDW 19.7 % (10.5-14.5) H [facility] PLT 331 10*3/uL (150-450) [facility] MPV 6.6 fL (7.1-10.7) L [facility] ID Date Data Source [id number] 05/03/2020 12:19:27 AM EDT [facility] Name Value Range Interpretation Code Description Data Debbie rce(s) Supporting Document(s) POC NOVA GLU 160 mg/dL (70-99) H [facility] [place] [facility] ID Date Data Source [id number] 05/02/2020 11:17:34 PM EDT [facility] Name Value Range Interpretation Code Description Data Debbie rce(s) Supporting Document(s) POTASSIUM 4.9 mmol/L (3.6-5.2) [facility] ID Date Data Source [id number] 05/02/2020 10:41:02 PM EDT [facility] Name Value Range Interpretation Code Description Data Debbie rce(s) Supporting Document(s) WBC 10.0 10*3/uL (4.1-11.0) [facility] RBC 3.68 10*6/uL (4.60-6.10) L [facility] HGB 9.2 g/dL (13.5-18.0) L [facility] HCT 28.3 % (41.0-53.0) L [facility] MCV 76.9 fL (80.0-95.0) L [facility] MCH 25.1 pg (27.0-32.0) L [facility] MCHC 32.6 g/dL (32.0-36.0) [facility] RDW 19.6 % (10.5-14.5) H [facility] PLT 319 10*3/uL (150-450) [facility] MPV 6.9 fL (7.1-10.7) [facility] ID Date Data Source [id number] 05/02/2020 10:08:54 PM EDT [facility] Name Value Range Interpretation Code Description Data Debbie rce(s) Supporting Document(s) POC NOVA GLU 153 mg/dL (70-99) [facility] ID Date Data Source [id number] 05/02/2020 08:21:53 PM EDT [facility] Name Value Range Interpretation Code Description Data Debbie rce(s) Supporting Document(s) POC NOVA GLU 158 mg/dL (70-99) [facility] ID Date Data Source [id number] 05/02/2020 08:10:20 PM EDT [facility] Name Value Range Interpretation Code Description Data Debbie rce(s) Supporting Document(s) POC SOURCE [facility] PUNCTURE SITE [facility] O2 THERAPY [facility] POC FIO2 45 [facility] PAUL TEST [facility] MODE [facility] PEEP/MAP 6 CM H2O [facility] PRESSURE SUPPORT 8 CM H2O [facility] SP RATE 10 BMP [facility] POC PH 7.38 pH (7.35-7.45) [facility] POC PCO2 42.7 MMHG (32.0-48.0) [facility] POC PO2 81 MMHG (83-108) L [facility] POC SAT O2 96 % (95-99) [facility] POC BASE EXCESS 0 MMOL/L (0-3) [facility] POC HCO3 25.1 MMOL/L (21.0-29.0) [facility] POC TOTAL CO2 26 MMOL/L (23.0-32.0) [facility] PERFORMED BY [facility] CLINICAL STAFF ID Date Data Source [id number] 05/02/2020 07:19:47 PM EDT [facility] Name Value Range Interpretation Code Description Data Debbie rce(s) Supporting Document(s) POC NOVA GLU 151 mg/dL (70-99) H [facility] CLINICAL STAFF ID Date Data Source [id number] 05/02/2020 05:09:26 PM EDT [facility] Name Value Range Interpretation Code Description Data Debbie rce(s) Supporting Document(s) POC NOVA GLU 154 mg/dL (70-99) H [facility] CLINICAL STAFF ID Date Data Source [id number] 05/02/2020 06:46:17 PM EDT [facility] Name Value Range Interpretation Code Description Data Debbie rce(s) Supporting Document(s) POTASSIUM 4.7 mmol/L (3.6-5.2) [facility] ID Date Data Source [id number] 05/02/2020 03:19:45 PM EDT [facility] Name Value Range Interpretation Code Description Data Debbie rce(s) Supporting Document(s) POC NOVA GLU 142 mg/dL (70-99) H [facility] CLINICAL STAFF ID Date Data Source [id number] 05/04/2020 08:55:23 AM EDT [address] [id number]# Surgical Pathology ReportPatient Name: HIRAL FERREIRA: 1960Accession [...] 1.5 cm. Thespecimen is serially sectioned and client relations representative sections are submittedas A1 following decalcification. jgllmr/skl Reported: 05/04/2020Electronically Signed Out By Jamari Carrasco MD [facility] [place] [address]zojGvlgsqxyd component performed at [facility], [facility], [address] [place] [address], [address].Reported at [facility] ([place]), [address] [place] [address], [address]. This report may includeimmunohistochemical or in-situ hybridization results. Testing wasdeveloped and the performance characteristics determined by [employer] [facility] as required by CLIA '88. The FDA hasdetermined that approval for specific use is not necessary for clinicaluse. The quality of Hematoxylin and Eosin stains and as applicable, forall immunohistochemical and/or special stains, including positive andnegative controls, were reviewed and considered appropriate.ICD codes I35.0CPT codesA: 70108B, 56404H Name Value Range Interpretation Code Description Data Debbie rce(s) Supporting Document(s) ID Date Data Source [id number] 05/02/2020 01:37:45 PM EDT [facility] Name Value Range Interpretation Code Description Data Debbie rce(s) Supporting Document(s) POC NOVA GLU 142 mg/dL (70-99) H [facility] CLINICAL STAFF ID Date Data Source [id number] 05/02/2020 01:19:02 PM EDT [address] [place], [place] [address]Krqkocg Name: HIRAL ZAVALATRIOB: 1960ex: MOrdering Provider: ROGELIO Dennis FORDAuthorizing Prov: ROGELIO Dennis FORDReferring Provider: Procedure Performed: XR CHEST PORTABLEExam Date: 05/02/2020 13:15MRN: [id number] Number: [id number] Class: InpatientAccount #: [id number] for Exam: Evaluate for [place] Julia catheter placement and/or endotracheal tubeTechnique: Single AP view obtained.Comparison: NoneFindings: The endotracheal tube and nasogastric tubes are in satisfactory position.[place]Julia catheter is in satisfactory position.Right-sided chest tubes are present. There is no evidence of pneumothorax.IMPRESSION: Lines and tubes are in satisfactory position.Report electronically signed by: FAUSTO DICKINSON On 05/02/2020 1:19 PMWorkstation ID: [id number] Name Value Range Interpretation Code Description Data Debbie rce(s) Supporting Document(s) ID Date Data Source [id number] 05/02/2020 01:25:49 PM EDT [facility] Name Value Range Interpretation Code Description Data Debbie rce(s) Supporting Document(s) POC SOURCE [facility] PUNCTURE SITE [facility] O2 THERAPY [facility] POC FIO2 80 [facility] PAUL TEST [facility] MODE [facility] TIDAL VOLUME 500 mL [facility] RATE 16 BPM [facility] PEEP/MAP 10 CM H2O [facility] PRESSURE SUPPORT 15 CM H2O [facility] SP RATE 0 BMP [facility] POC PH 7.31 pH (7.35-7.45) L [facility] POC PCO2 53.5 MMHG (32.0-48.0) H [facility] POC PO2 88 MMHG (83-108) [facility] POC SAT O2 96 % (95-99) [facility] POC BASE EXCESS 0 MMOL/L (0-3) [facility] POC HCO3 26.7 MMOL/L (21.0-29.0) [facility] POC TOTAL CO2 28 MMOL/L (23.0-32.0) [facility] CLINICAL STAFF ID Date Data Source [id number] 05/02/2020 01:25:49 PM EDT [facility] Name Value Range Interpretation Code Description Data Debbie rce(s) Supporting Document(s) POC SOURCE [facility] CP BYPASS [facility] POC MIX ELLIS PO2 40 mm[Hg] (35-45) [facility] POC MIX ELLIS SO2 68 % (60-80) [facility] POC HCT 30 % (41.0-53.0) L [facility] ID Date Data Source [id number] 05/02/2020 01:14:28 PM EDT [facility] Name Value Range Interpretation Code Description Data Debbie rce(s) Supporting Document(s) EKG [facility] FDGKTc3eSoYHPfXtg7WcFxPlPDYsZC8ypok2S5S7sOLmF0MpzBCma5goE2HbF2IdTMWrUPAEPD6XsISn jb2 [file] senior svp/M5d5lQ6/5Gg5r1zeJj4LlM6vyCbQykmxqT/8fwU8Eczw3MX65j2MtVDAHG8IuhB8OGy77xyF9A1t2 [file] +uuMzT+m3Ftf3/6vpPrpk36pvZi6+me1i++N7n/Jose Alfredo 5ukXFRPf+h5JVFfQI7dhXo+tKMu/255eg1fLy6Lj48gSCnyCNleua/i5WYhdye/fneEqN/BVxOkN/P6+ 4+iBa2hQ7La7BRIbTQ9mZ0+v4/MR+CrDaG/gq+Vtecvxxikv2C10vidAdiIfD/4pfQa+8vXLCHwVcQJf BX3Gd9WvGFFg3+15WwQQxgDlGTbB4pG5V13qyJZpLq yV/J024K6ZddKeIE4o+YZgsyi6Ys5zL0AwoYkYHxIFax/by2Ek4Zfg2/xPbMog3L7Lo/YGvkq+IX8DH9 657VqZhvuDGa9LUhEuHq4ZiZi+97K8J28btVV87fvXyjnq9SJvnKuJV6qw5skE8ee6DfcasbC6rlzRKH XFEkR9sa3jQGRC+OjPiu/r+OrmOZG/gq/gL/AX+Bv8 Ubm1dOS00hMMtgjWkN+wWvmjtC6unuZyvOpr/Ax//YzZLZ5WV+/1szPHktCfQl7Wn+Av5O/dnvLGn8Lv KNfbm+GD/E/jjnC86kulBlq3SdozQnLpDiL/1Rs6BB4SH03IBlHOJL+ESestQpyRoS1r6OUNV8g7kk5E Afa4Z7CND2wLwawBl0Qx+nf6pHToBUsAzPNEw5eK3U LyAfvVsLLnjLRfRZyhFWci/gRfW+NtNK4jnYa8DnMUk2BO8yoLWqj772lW4UD27k5fu8R5oCL+ahnWCt f1iPvtY43S4robcx1rmOR+eHjMr/aGyB5vGtVL3dySaT2y10T7+Gz5t849OG5noTet1bIC0spR19r5cr /6Jb+AM4zFL9DTkAMcdZ1Mr1W/EX+Ol2ph11HgS/wF /kY+G/nY++6d0GpPr/efzsBXEb/XfOQ3+p3mEhFu6HWt+XW+T8oXJ4misU/Bn+Et2dfe5b6V4tl8i9S8 fy9qhhF+zb+cv99QbuPL5SuQ6L6R+UczHOAH0fkIqhTuILlE+BN8fF/csaltl8X2uw7eIM5Vq1UeeEGp Nishant/h0fkTQaBbPjF5rd/mQHsH+mQF9s20yjDlo2O/D3 [file] wV+ticket marker+nKF8tPYk935/+ECxektdDiMIQ59uhg61WoQh7ai8k/0CJCV3vGKKG5CR+AP5D/HZ3OZERb7ECt [file] QeCYZQBWSUNvfRCJAS0WPnDipb5ZWXO5vUwClpSEuc PktdJnBModVSinCrVhzWQyozCsgzxexDvuDugnJxtApk9MdfQmJ1WjVGrLqGuMgjBFlag5UcMCjKoYWF OYYBLIOJFIHEMfBVGDxXcYMZHqLnKApQjEdCRwzkY9GvkaZAQEQxaBFLAgDRCACHkI3VUHO3ACTDKYWJ DNOZjYCSAFKACD3meGTDbbDijTjemHUfIoL5OPELwC YPYIChJcqOKClIPtCDXk6ep3tDf1tzdyXuJhmyDeAggjEI7V1xlMwCRWL0CtOzxAYDuVdxGPUeYbHSAS SAuSOGDVRMCJfXQV3KIxRXQ3eZnYUH5d6zDjM3l7LV5R2f1ToCGUV9CcGblF3MxCndE6PgNhQVMXCJbF KFFLQtRWvHHKRZVfUNUApWiYHHKfAoFoDQpMWX9Y9j FbS6FsplHOKrIkjU3Q3jWsQ1QbkjFEVjPygC6Y7eOrO1EcksCDGxSzaT6T4lRyZ1SarmAUJoCyhG3X9p WzG5ZjytPZOmCjqZ1A2oUtI5J+PmMPaPITGntE8+NHiF6sOMa0nDQ/a4UABdmTqY4ehk9m5MQVlfjhy8 wTZnG7FKGVXM7iue1PrNdHXsA7WXDJKE9scu7AcRfM NrK0SHUFVI5khq0JzExEMsQ5AQNESM4spw4KpSdXImU1EGDPMR8jdu8NdMoGNrJ6MGRDTU7tpd1ZtDxO MhH1PDEUHL8wac4QeBnSBjI5KIZGOH5yns2RaZxNBnF0BMKLDR5kuc8YjNcNNeS9CRLXUV4gtj7RhQlR ZeQ4PLCZYB2vyh0JvWsBXfX8WWZXTChq4vtS5I26qI izxEgtjYgLaK6Sy0gzl6pWiYCrZV5XFtFwIkuCa0oNoTN0VP8iJ4JvqYFPL5yEgJFMK8dEcVBRY1dFqB EZS3sMgPIRI7hIcMJHD4VaLg4Bvow2L9ja5fdcptoucXqlr0UiqZqCoNgpDNMQtGIMA4pMkAODO3uIxX EAZ2kYjFVKX3hq10rMbxpiYt6WltiqBb6TtfeiLf6E nawaWc9QqaqbVj9VyahgPg0UzugmHb7Cgd5oVk6Qjh2yQq3Onz0sTg2Faa3mBl7Zvt4rEk2NTXZ0ZuTL 0BuCO6ByJq7Byxr8G8dc6ciqjhvlv3xqc4aalQpFzUjmMKQRxYTUQcFUGs4YZRe6EzDs9YfUn7GeKe5P cg2f0ofrqDgaPxIAgnOlTXoKBrizDz2CwACe87m183 uk15s353jh26o8Oy4Xj1mRskjcc/HJ+RY9Cw5Dl5dPn5QHw8aF76X2u5vnHBLqGzrZN0gcGsZGLf2MhS NJYNMkWSXVsHdSRKJgRgHicRhCBNoeNwFBPdsBbXOPVpGvvRQ0mUtsMTTgIfoDJ9ilHkKJCn0V+YVMMG SGIVMMmWPIJENmGTLNkHmGTDRkpiFTDZlryGRDZhsy 3EE5yjv2JCDdJf1Yl1woM3TqUz2YiQmOKAHpKgN3Yoi8+3q25c5XqjdIzpYv68aZN7+ZlZBPZZ2UPrGR FIVgLpVSUoMw6adEKCCPNSeASCcItadDQN7CnTbjDnLSQl3c7ioKKRtST8d5xfVa3dTS8KotJmuyBEGb 4CNRT60sLC6bpNp6JMjcTU7YLLA4LAvCLavIogd4NV dGTlATpshdPeruS4Y8GuxCJGszrdfGQmhDZQhl3rj7WhuHRBuv4xiBHwpNBI5n6yj4NnwBKOPmTqhAPn pQsEOROhTsUKQOBTsUqUPBDkW+b7gPXi2w2EvTUxRgUDMXNUbGkFLUKgUwOGMHuVhK3OSbUyS7RZbUuL 6F9mFnG6H4jLxy19h3w02W67iBO+KEmWCmMFOYKcwU RyEgMqBqFhAwHyMBgbmALdGl49droWCjNgYofi0VQ1HwMdRtMuJwVhBeXUSlYjOl++qcc0Sjl0vqOP8u q4cyFrebi4zGpxtHRpQncDzCreeJjvPmheeMworCwpHlgopljzkP2sGMozIk/lTco2bfYcv+nab8+fag r+kPol+fIgE7JBT4DKengq8gz6o95lqbz4F1dz/fPD /47gus9g/mrUE73Ouep+SMj46vmdqelnj1jkl8/twm0ePF8o64Y4bMAWSfW8DJyY8CawcdFHFYC89hBY 24MQ30saCH3+OYq7Yby1wfS+9kqt3EKRZp0uCy2jp4O0OL9zxUY3+wzBZi/sUzUbK9v5MeLFgzxaSm4Q FQeai93VS88y4666lvv9xJw93/Dq/Pfr29/Lp+LS7P fz+7+DJ8/J1UQj09plc6DamcsJ2vmGAx0XG6dArd9wxp+vcqa4kGA2l9i7HQo+H0z6/fLq7u/1PEa6xe 7Sqy3EY857V3P+gX9o98vWza98Y3V7H4zxJ95epQTshL6c2X17NwF8J36h0sm74/qyt+683/hNidk5vx 75zCA9Eg5miM95+qkejI9x/eGH+3/J48Ct73/G7408 ih0HwE4hqm0ed/XX+ey1+jj49fCctN6mhGn8SS25GSkAjjxvC6Y34wmgBZ5mqX309dPordGXjUUiplrp dudrx/ir6zxm320Gf0aUrko/fNc3B81kt+u06h8tK10QA3gG0ti8lOKduf3m/w/P2+ljbevQc0/Hn78f snR++x8hpjH6oqgsRud/44P/r1tUp9TZ+9hO35oV1k 282Wk4hwd+agency service coordinator/Q0wni7VuoKLEWxv+nkmj7veb/laVY9I7r88roRVBz/le85lw5Om976k27/QnjRLvH1 88cWuj3/fvf+2ockegSp1twblJx0ur1lhgCEl/cLyzgzbWIEypgBnE4xgo+NkpUomfE2RinjpmIptPtc 6l58KV79o98beGtto2nJyjX4UfAolt7//Px+fWxdO2 1c3wTK8xt/HdpeTH2YCJ9mf5PxFLXjMzMyAK7shuxpQuExXB7whdd9A2KukWzgVZsQDUUiDu3aaYBmLC 2ZQHD4WHswLJUtZAEaS5QldH8vD41kdAFzMucsEMVMXJ3PXULfkqXvHgEcLGO+WvMhLY8caaesBZDwk8 CkLQzfALqnLQDeM7W9gGzfYVRyT5PnrN56ONItZ8Ys rsF7ESN4JMQxQkKyTRWoaHMkFtYhQPP+ZsTxOF4klwqyJMVey8UbCYqpEDM7bT5oZIrISNTMITgHJQch CkK2l86qpuRKYKFeHGLbKL3OouNvqAjzyvNbrLBySPF0VcPpQHJsRrUgPhB1IOHMYUShTMHvFLTlUUDr B6WjwZzcQSeUCHDFVMeRYDrsXqOrg9E2QHZakxXGMa 6SCENzAX6PO3eNRFiuXCAdWOa1Xxa6NQJhK0JavdEreGPrPZNXBTvoJiecKJRloF0vyIwuJ8EhBJV6q7 YlIK1PC8FpTFZhYMRHRUY5f0WsASLjlruzgzzgQwHiDDOfEEBqLEEjGX0Uci2xbTPurcZbFQLBYQzwOe kaOH6zkGmvosjaO9JvkZXiLIF+QqHbOV0caa2+CjEg PLPqMxc4DXEcJBcgLYRdWMXzJCWwQ3diFXDiMnUsUNVsWmPzNJClOOTuMLKdX316euIgQe7+FP7oa3Gi HrbcQSWYAVIpISCyWBSwKXI4ZyOsNZVuEQYxHFShRbB3GcIjBqUJJAJdLSFeRPUjDBPhIUMkEHEiGCvt ELGwPAE8PSMgMCLwKUPqDZ1zBiRnJWTuXBY8SiCdNZ NaIRLkjmGJWSRuBQSsVCJkVNA4XDDcLJPxKPjfJAEsOMPvJYX2JQNiVQXaRA0yOiVnXFBuUVVzXnliJA UaITBrcmBYITOhNOShGXL1JdOzXGLtGBCtOBcdKQMbJRApOpq6RJQxKOKnBP6oUhPoLUToXQU4POdlIO AwMDAgbiAKMDAwMDAwMDUyMyAwMDAwMCBuIAowMDAw DLVgFcAuVFUoVSByYC3cVdIvNAGeYML3EYRkAAQwIGDwrdSZIFVfOODtONk4QXDsPVMgKVPoXVugTRXw KEIcGXA1OCIuVWGcUG9lGyExPCJjOPIaUCFiFPNjALUblcHDHLOlHZLuTUY2JUQyUPFbTXJuTGocIPSv CCZfEvx4MQCdWPBxKG9fJmVdPVNfOKD7VZMkKHGuAM HsuwBKEXJjGUWiTFQ8YrUpNFKxXLVuUIawYAZwTPPgIaB1XLKnJATtTX0tYmEoYJBaCIL3OgYnTHXoTU EfsiOCQOOaTHLwDXO6KtQrBAEsXSRnKNtjDVIiDDA0DqS6HXLxFOSiJD1rNgMuTUQpYZJ0NCDuRRGvFW XujxJKMJRhNRXyPEy2ECDdXXPnVCQbQSylXQPvELAc Yck3MSIsDLKfBE5eMmMhYYWqPXBhLXFvByH3IwBsYeZYwQOhhTynjzl7NBceB3c6XTIpUOxmSU5rtsLg IXOrUehcVs8hfUB1WEXtMcnXPk0Bw2YiimZ0qvOrQbPvPQYmGidjLGUFDg== ID Date Data Source [id number] 05/02/2020 01:10:42 PM EDT [facility] Name Value Range Interpretation Code Description Data Debbie rce(s) Supporting Document(s) POC NOVA GLU 145 mg/dL (70-99) H [facility] CL[facility] STAFF ID Date Data Source [id number] 05/02/2020 03:00:13 PM EDT [facility] Name Value Range Interpretation Code Description Data Debbie rce(s) Supporting Document(s) MAGNESIUM 3.5 mg/dL (1.7-2.4) H [facility] ID Date Data Source [id number] 05/02/2020 03:00:13 PM EDT [facility] Name Value Range Interpretation Code Description Data Debbie rce(s) Supporting Document(s) SODIUM 139 mmol/L (136-145) [facility] POTASSIUM 4.4 mmol/L (3.6-5.2) [facility] CHLORIDE 106 mmol/L (100-108) [facility] CO2 25 mmol/L (22-31) [facility] ANION GAP 8 mmol/L (7-16) [facility] UREA NITROGEN 15 mg/dL (7-24) [facility] CREATININE 1.03 mg/dL (0.80-1.30) [facility] BUN/CREAT RATIO 14.6 RATIO (10.0-20.0) [facility] GLUCOSE 133 mg/dL (70-99) H [facility] CALCIUM 8.7 mg/dL (8.4-10.2) [facility] GFR >60 ml/min/1.73m2 (>59) [facility] GFR ( AMER) >60 ml/min/1.73m2 (>59) [facility] GFR INTERPRETATION [facility] --NORMAL KIDNEY FUNCTION OR MILD DISEASE - GFR >OR= 60CHRONIC KIDNEY DISEASE - GFR 15 - 59RENAL FAILURE - GFR <15 Est. GFR calculation based on the MDRDstudy equation, which assumes a steadystate for creatinine. Est. GFR should notbe used for medication dosing. ID Date Data Source [id number] 05/02/2020 02:56:07 PM EDT [facility] Name Value Range Interpretation Code Description Data Debbie rce(s) Supporting Document(s) CALCIUM IONIZED 5.16 mg/dL (4.64-5.28) [facility] IONIZED CALCIUM NORMALIZED TO PH 7.40 AN D 37 DEGREES C. ID Date Data Source [id number] 05/02/2020 02:33:37 PM EDT [facility] Name Value Range Interpretation Code Description Data Debbie rce(s) Supporting Document(s) WBC 12.4 10*3/uL (4.1-11.0) H [facility] RBC 3.58 10*6/uL (4.60-6.10) L [facility] HGB 8.9 g/dL (13.5-18.0) L [facility] HCT 27.8 % (41.0-53.0) L [facility] MCV 77.5 fL (80.0-95.0) L [facility] MCH 25.0 pg (27.0-32.0) L [facility] MCHC 32.2 g/dL (32.0-36.0) [facility] RDW 19.5 % (10.5-14.5) H [facility] PLT 318 10*3/uL (150-450) [facility] MPV 6.7 fL (7.1-10.7) L [facility] ID Date Data Source [id number] 05/02/2020 12:12:35 PM EDT [facility] Name Value Range Interpretation Code Description Data Debbie rce(s) Supporting Document(s) &PDF [facility] APCUTy7sDwHUMnMq76/SVLxnJSSob4UzMFquGZp7YMmzVFHpS4YhlDjsNHxMM2FUYqwSMYOYMRNIGGna vci [file] AgICAgICAgICAgICAgICAgICAgICAgICAgICAgICAgICAgICAgICAgICAgICAgICAgICAgICAgICAgIC XkRJKeMLXySRSrNNRwMNYdZUXrLZPeJDEqEB5HWOKu ICAgICAgICAgICAgICAgICAgICAgICAgICAgICAgICAgICAgICAgICAgICAgICAgICAgICAgICAgICAg EPYnOURjFTCfHRScNPObUYRnQIZwLTFuRIPyCOWuVCIlLBZzIP6RACRtUTUvEJDoHJSxJXEzYCIbARFa ICAgICAgICAgICAgICAgICAgICAgICAgICAgICAgIC XkOPGuWUTxWQKnVUIoYHThPBDqKMOiWDXiYAXzCLBnEYRsEBTqYHJgNZKcGMHaOL8QSUMnSSTmHEQvUQ AgICAgICAgICAgICAgICAgICAgICAgICAgICAgICAgICAgICAgICAgICAgICAgICAgICAgICAgICAgIC PpOGUcHZAwTALlXEXaSWDqKLPsPZUiOVEfDEAbKL9N ICAgICAgICAgICAgICAgICAgICAgICAgICAgICAgICAgICAgICAgICAgICAgICAgICAgICAgICAgICAg URHuIWFbCQJvGIVrXAFkAQOeRGLsAXHvLRSvXAFmAIJwOQFuLUAxAK6WEVTuBZHmPMYsWWFfITZiUBXb ICAgICAgICAgICAgICAgICAgICAgICAgICAgICAgIC AaTJAeOHIuGRSsRPOqYCFfNDCcNFCiMGAdEDEwBPYgTLOePEUcMEIpAXAdPPLjJUWoPJ4DAKIsOJXeYM AgICAgICAgICAgICAgICAgICAgICAgICAgICAgICAgICAgICAgICAgICAgICAgICAgICAgICAgICAgIC AgICAgICAgICAgICAgICAgICAgICAgICAgICAgICAg WD3EQSLeHVBrGRQmPZLqKQEnAOZzCYZvRELxGSCmAMUdLHLnVUZiILPpKLHxHMUkEJIpTKSnNOTcZVXn HQVdQRQgIACqNJKfHPBeWIEyPZBiUYKeHIKiLGYaURAzKGCjGUSsIRSgSV9EESHwHLBbCVMuLOHaABVu ICAgICAgICAgICAgICAgICAgICAgICAgICAgICAgIC UaAVSpEKIgLVXvCHJpPEKyNJKwXNGqRTWzJSTaZGJtCJWyLXHrYTBlMTYdXEBfQMBfEKLgHT7GTQInZX AgICAgICAgICAgICAgICAgICAgICAgICAgICAgICAgICAgICAgICAgICAgICAgICAgICAgICAgICAgIC AgICAgICAgICAgICAgICAgICAgICAgICAgICAgICAg NRKaLY6NOF23fQPsm2R7BQEaSC5sran/Ye8BNTqqjjRsxFNnZT1LRqAqFI1uqj3IPqKlWY7rxq0FFJlS HrLpB1G1rXByBNLiBZVTNvMfH29bBKlnZs56JVzbQSCtYwBxNGi2Bp2CCkHhS6aeNVWkRsI2QCJrLlSd IHbuSZ4Xh6TxgNDzWLz+Tb1AJR5fk6FqKGjhKoSuUW 3kjc1OFLsGOlZjU4S0jKBzB0K0IEeqPf9PFISaLBSzMUSjGYZRPJrgNB4EGE6bwkR5KU6UaULcMEEjWF UynVIpFWj2F46hyCBlREhxDK2VQZX+Krysta+Vb2HWAVxCDHoAOJsAkCtEPPHCdRkD94suTXvERAdIQR4LN NaOb9RMEEeI3CphiYoaPhobrUiGQArHWQKFF8CHNny zeTyxODtgNgsMY23tIbpIE2DWp8KSjVjMN0bbf6OmWSoDs9YPEVmPi6JXTRiGIArUHIgLUZ3PNFhIwQz AZmeLBYlVHRwYNK4TJVxVYYjMF1TWpWfVVLlHGPsYqUzMCZlXBSnhb7EAZGeSMEkJOlaVMUuKGRnJDPh ZUgwRGQmZQBaFRtyYGJkKLQcGO9CUmPvWWWmEPB6De DoDZHjHNKvsq4WZZWvDRJiUOjaOTQgEOCvSVFzJPklJISgQHDgVWt4LOQbTOLtQH8GFrXpCTIpVGEbSZ YrXKDjIAAxec3TSOIxIARpVzC2UlNhVRGhMOGdMCrjOYUcPXL8GvAiPWOyPLDcOY4HBhSyTGUjYVK2Hg IxCALeCKLhid1CXLCcEWCwYYRiBMQvTMEpLXTsDPve ABDcYHW7LeQ8HXOaQZKiAQ5SSiErFCVuVZNoWBAfXOLeZLHbxv6UIKLvKEVdHJP9GBWaSYMrRUPnVFjv AQJtHQR1YMJjDTMbITZiER1AEtJqTNjuYLGHRuy5PGefR6i7TGMiIy3XK0Yfy5BdYGSmVPGAKKhhBQ3y vgWxZAUiWc6YN4kFJkr8CTNgP6EfRGMuBXY4ObbpVa Z7NpfbTQPiONG6HLTkZX7cZHYwAnDtDNJ3SqH6Fva3EYTnFVpqTNUjR7PwLLXsZyP2YcXpAR9UGg1AKc E3UOS9sKZvDe7UKGAwLDeMVhWhRM3JGUy= ID Date Data Source [id number] 05/02/2020 11:59:27 AM EDT [facility] Name Value Range Interpretation Code Description Data Debbie rce(s) Supporting Document(s) POC ACT 98 s (80-140) [facility] PERFORMED BY [facility] STAFF ID Date Data Source [id number] 05/02/2020 11:58:01 AM EDT [facility] Name Value Range Interpretation Code Description Data Debbie rce(s) Supporting Document(s) POC SOURCE [facility] CP BYPASS [facility] POC PH 7.36 pH (7.35-7.45) [facility] POC PCO2 44.5 MMHG (32.0-48.0) [facility] POC PO2 63 MMHG (83-108) L [facility] POC SAT O2 91 % (95-99) L [facility] POC BASE DEFICIT 1 MMOL/L (0-2) [facility] POC HCO3 25.0 MMOL/L (21.0-29.0) [facility] POC TOTAL CO2 26 MMOL/L (23.0-32.0) [facility] BY [facility] POC HCT 26 % (41.0-53.0) L [facility] POC SODIUM 134 MMOL/L (136-145) L [facility] POC POTASSIUM 4.8 MMOL/L (3.6-5.2) [facility] POC IONIZED CALCIUM 5.3 MG/DL (4.6-5.3) [facility] POC GLU 151 MG/DL (70-99) H [facility] PER[facility] ID Date Data Source [id number] 05/02/2020 01:45:49 PM EDT [facility] Name Value Range Interpretation Code Description Data Debbie rce(s) Supporting Document(s) APTT 15.5 s (22.0-34.3) L [facility] PERFORMED BY ALTERNATE METHOD. REFERENCE RANGE = 24.7 - 33.3 ID Date Data Source [id number] 05/02/2020 01:37:20 PM EDT [facility] Name Value Range Interpretation Code Description Data Debbie rce(s) Supporting Document(s) PT 11.9 s (9.2-11.9) [facility] INR 1.14 [facility] SUGGESTED THERAPEUTIC RANGES USING INR F ORSTABILIZED ANTICOAGULATED PATIENTS:STANDARD DOSE THERAPY INR 2.0-3.0 DVT, PE, PREVENT DVT OR EMBOLISMHIGH DOSE THERAPY INR 2.5-3.5 PREVENT EMBOLISM FROM MECHANICAL HEART VALVE ID Date Data Source [id number] 05/02/2020 11:49:30 AM EDT [facility] Name Value Range Interpretation Code Description Data Debbie rce(s) Supporting Document(s) POC SOURCE [facility] CP BYPASS [facility] POC VENOUS PH 7.37 pH (7.33-7.43) [facility] POC VENOUS PCO2 44.0 MM HG (38.0-50.0) [facility] POC VENOUS PO2 38 MM HG (30-50) [facility] POC VENOUS SO2 71 % (60-85) [facility] POC VENOUS BASE EXCESS 0 mmol/L [facility] POC VENOUS HCO3 25.5 MMOL/L (23.0-27.0) [facility] POC [facility]ENOUS TOTAL CO2 27 MMOL/L (24-28) [facility] POC HCT 24 % (41.0-53.0) L [facility] POC SODIUM 135 MMOL/L (136-145) L [facility] POC POTASSIUM 5.6 MMOL/L (3.6-5.2) H [facility] POC IONIZED CALCIUM 4.5 MG/DL (4.6-5.3) L [facility] POC GLU 164 MG/DL (70-99) H [facility] ID Date Data Source [id number] 05/02/2020 11:49:59 AM EDT [facility] Name Value Range Interpretation Code Description Data Debbie rce(s) Supporting Document(s) POC ACT 417 s (80-140) H [facility] PERFORMED BY [facility] ID Date Data Source [id number] 05/02/2020 11:03:52 AM EDT [facility]FORMATIONPatient [facility]N Name Date of Age Gend*PT [id number] Hiral Ferreira 1960 60 years M SDAPT Location Admission Date/Time Visit ID Attending Provider --- --- --- --- EPI ID CSN Admitting Provider [id number] ---Peripheral BlockPatient location during procedure: pre-opReason for [...] rce(s) Supporting Document(s) ID Date Data Source [id number] 05/02/2020 11:05:27 AM EDT [facility] Name Value Range Interpretation Code Description Data Debbie rce(s) Supporting Document(s) POC ACT 516 s (80-140) H [facility] PERFORMED BY [facility] ID Date Data Source [id number] 05/02/2020 11:01:25 AM EDT [facility] Name Value Range Interpretation Code Description Data Debbie rce(s) Supporting Document(s) POC SOURCE [facility] CP BYPASS [facility] POC VENOUS PH 7.36 pH (7.33-7.43) [facility] POC VENOUS PCO2 47.0 MM HG (38.0-50.0) [facility] POC VENOUS PO2 42 MM HG (30-50) [facility] POC VENOUS SO2 75 % (60-85) [facility] POC VENOUS BASE EXCESS 1 mmol/L [facility] POC VENOUS HCO3 26.5 MMOL/L (23.0-27.0) [facility] POC VENOUS TOTAL CO2 28 MMOL/L (24-28) [facility] POC HCT 26 % (41.0-53.0) L [facility] POC SODIUM 135 MMOL/L (136-145) L [facility] POC POTASSIUM 4.5 MMOL/L (3.6-5.2) [facility] POC IONIZED CALCIUM 4.6 MG/DL (4.6-5.3) [facility] POC GLU 141 MG/DL (70-99) H [facility] PERFORM LAB [facility] ID Date Data Source [id number] 05/02/2020 10:31:51 AM EDT [facility] INFORMATIONPatient MRN Name Date of Age Gend*PT [id number] Jose GuadalupeHiral J 1960 60 years M SDAPT Location Admission Date/Time Visit ID Attending Provider --- --- --- --- EPI ID CSN Admitting Provider [id number] ---Central Line InsertionPatient location during procedure: ORIndications [...] rce(s) Supporting Document(s) ID Date Data Source [id number] 05/02/2020 10:29:59 AM EDT [facility] NT INFORMATIONPatient MRN Name Date of Age Gend*PT [id number] [place] 1960 60 years M SDAPT Location Admission Date/Time Visit ID Attending Provider --- --- --- --- EPI ID CSN Admitting Provider [id number] ---Introducer AdditionsPatient location during procedure: ORIndications for [...] rce(s) Supporting Document(s) ID Date Data Source [id number] 05/02/2020 10:28:31 AM EDT [facility] NT INFORMATIONPatient MRN Name Date of Age Gend*PT [id number] Hiral Ferreira 1960 60 years M SDAPT Location Admission Date/Time Visit ID Attending Provider --- --- --- --- EPI ID CSN Admitting Provider [id number] ---Arterial Line PlacementPatient location during procedure: ORIndications [...] rce(s) Supporting Document(s) ID Date Data Source [id number] 05/02/2020 10:33:26 AM EDT [facility] Name Value Range Interpretation Code Description Data Debbie rce(s) Supporting Document(s) POC SOURCE [facility] CP BYPASS [facility] POC PH 7.35 pH (7.35-7.45) [facility] POC PCO2 49.0 MMHG (32.0-48.0) H [facility] POC PO2 66 MMHG (83-108) L [facility] POC SAT O2 91 % (95-99) L [facility] POC BASE EXCESS 1 MMOL/L (0-3) [facility] POC HCO3 26.8 MMOL/L (21.0-29.0) [facility] POC TOTAL CO2 28 MMOL/L (23.0-32.0) [facility] BY [facility] POC HCT 30 % (41.0-53.0) L [facility] POC SODIUM 137 MMOL/L (136-145) [facility] POC POTASSIUM 4.2 MMOL/L (3.6-5.2) [facility] POC IONIZED CALCIUM 4.9 MG/DL (4.6-5.3) [facility] POC GLU 116 MG/DL (70-99) H [facility] [place] [facility] PER[facility] LAB [facility] [place] [facility] ID Date Data Source [id number] 05/02/2020 10:15:27 AM EDT [facility] [place] [facility] Name Value Range Interpretation Code Description Data Debbie rce(s) Supporting Document(s) POC ACT 384 s (80-140) H [facility] [place] [facility] PERFORMED BY [facility] CLINICAL STAFF ID Date Data Source [id number] 05/02/2020 09:33:53 AM EDT [facility] NT INFORMATIONPatient MRN Name Date of Age Gend*PT [id number] Hiral Ferreira 1960 60 years M SDAPT Location Admission Date/Time Visit ID Attending Provider --- --- --- --- EPI ID CSN Admitting Provider [id number] ---AirwayPatient location during procedure: ORUrgency: electiveDifficult airway: [...] cmPlacement verified by: chest auscultation and + [id number]: equal breath sounds bilateralGrade view: grade I - full view of glottis Name Value Range Interpretation Code Description Data Debbie rce(s) Supporting Document(s) ID Date Data Source [id number] 05/02/2020 09:34:24 AM EDT [facility] [place] [facility] Name Value Range Interpretation Code Description Data Debbie rce(s) Supporting Document(s) POC SOURCE [facility] [place] [facility] CP BYPASS [facility] [place] [facility] POC PH 7.36 pH (7.35-7.45) [facility] [place] [facility] POC PCO2 51.6 MMHG (32.0-48.0) [facility] [place] [facility] POC PO2 469 MMHG (83-108) [facility] [place] [facility] POC SAT O2 100 % (95-99) [facility] [place] [facility] POC BASE EXCESS 3 MMOL/L (0-3) [facility] [place] [facility] POC HCO3 29.3 MMOL/L (21.0-29.0) H [facility] [place] [facility] POC TOTAL CO2 31 MMOL/L (23.0-32.0) [facility] [place] [facility] PERFORMED BY [facility] CLINICAL STAFF POC HCT 31 % (41.0-53.0) L [facility] [place] [facility] POC SODIUM 137 MMOL/L (136-145) [facility] [place] [facility] POC POTASSIUM 4.1 MMOL/L (3.6-5.2) [facility] [place] [facility] POC IONIZED CALCIUM 4.8 MG/DL (4.6-5.3) [facility] POC GLU 104 MG/DL (70-99) [facility] [place] [facility] PER[facility] LAB [facility] [place] [facility] ID Date Data Source [id number] 05/02/2020 09:38:57 AM EDT [facility] [place] [facility] Name Value Range Interpretation Code Description Data Debbie rce(s) Supporting Document(s) POC ACT 120 s (80-140) [facility] [place] [facility] PERFORMED BY [facility] CLINICAL STAFF ID Date Data Source [id number] 05/02/2020 08:03:36 AM EDT [facility] [place] [facility] Name Value Range Interpretation Code Description Data Debbie rce(s) Supporting Document(s) ROOM TEMP AB SCREEN [facility] ROOM TEMP AB SCREEN NEGATIVE ID Date Data Source [id number] 05/06/2020 12:36:52 AM EDT [facility] [place] [facility] SPEC EXP DATE 1PATI ENT ABO/Rh A POSITIVEANTIBODY SCREEN NEGATIVETESTING SITE PERFORMED AT [address] [place] [address] [id number] BANK COMMENT BLOOD TYPE CONFIRMED.UNIT NUMBER [id number] COMPONENT TYPE LEUKOPOOR RED CELLSUNIT DIVISION 00STATUS OF UNIT REL FROM ALLOCTRANSFUSION STATUS OK TO TRANSFUSECROSSMATCH RESULT COMPATIBLEUNIT NUMBER [id number] COMPONENT TYPE LEUKOPOOR RED CELLSUNIT DIVISION 00STATUS OF UNIT REL FROM ALLOCTRANSFUSION STATUS OK TO TRANSFUSECROSSMATCH RESULT COMPATIBLE Name Value Range Interpretation Code Description Data Debbie rce(s) Supporting Document(s) TYPE AND SCREEN [facility] [place] [facility] ID Date Data Source [id number] 05/02/2020 06:39:21 AM EDT [facility] [place] [facility] Name Value Range Interpretation Code Description Data Debbie rce(s) Supporting Document(s) POC NOVA GLU 101 mg/dL (70-99) H [facility] [place] [facility] [place] PERFORMED BY [facility] CLINICAL STAFF ID Date Data Source [id number] 04/27/2020 01:22:56 PM EDT [facility] Name Value Range Interpretation Code Description Data Debbie rce(s) Supporting Document(s) EKG [facility] HBESDr2ySfTRHnDgm4YuWhHbEIXiGH4hpzs2K6Z2uREwI6GxoZZvm4rmB7MjJ2UuQEFuPFPYZD5PdVLs jb2 [file] pilot submersible+fUEOPOUEhqASNH+gEg+BLBupqVqr0i+bj1P/XfA [file] MDkgMDAwMDAgbiAKMDAwMDAwMTczNCAwMDAwMCBuIA hhHPSaGHWwBXQ4TEQeCUCbWS8eInJkVNMhWJEjUUNpZvS7ZnAuKgSFzUEcnLunkiw7KUasO9h4FBPeOC vfAN6wplVgYXEhIbirPg7opRA1LBVvXzxRRm3Tc5KdzhP2rkZnMwDqECUnLrAaZW2L ID Date Data Source [id number] 04/28/2020 11:47:40 AM EDT [facility] [place] [facility] [place] SPECIMEN DESCRIPTION MIDSTREAM UR INE,CLEAN CATCHCULTURE RESULTS <10,000 CFU/ML REPRESENTING URETHRAL FLORAREPORT STATUS FINAL 04/28/2020 Name Value Range Interpretation Code Description Data Debbie rce(s) Supporting Document(s) ID Date Data Source [id number] 04/27/2020 03:43:50 PM EDT [facility] [place] [facility] [place] Name Value Range Interpretation Code Description Data Debbie rce(s) Supporting Document(s) COLOR [facility] [place] [facility] APPEARANCE [facility] [place] [facility] SPEC GRAV URINE 1.010 (1.003-1.030) [facility] PH URINE 7.5 (5.0-7.5) [facility] [place] [facility] LEUK ESTERASE (NEG) [facility] [place] [facility] NITRITE URINE (NEG) [facility] [place] [facility] PROTEIN URINE (NEG) [facility] [place] [facility] GLUCOSE URINE (NEG) [facility] [place] [facility] KETONE URINE (NEG) [facility] [place] [facility] [place] UROBILINOGEN 0.2 mg/dL (0-1.0) [facility] [place] [facility] [place] BILIRUBIN URINE (NEG) [facility] [place] [facility] BLOOD/HGB URINE (NEG) [facility] [place] [facility] ID Date Data Source [id number] 04/27/2020 11:30:18 AM EDT [facility]PAT[facility] NT INFORMATIONPatient MRN Name Date of Age Gend*PT [id number] Hiral Ferreira 1960 60 years M OPPT Location Admission Date/Time Visit ID Attending Provider --- --- --- Oneil Genao MD([id number]) EPI ID CSN Admitting Provider [id number] ---HISTORY PHYSICALName: Hiral Ferreira : 1960 Sex: male Care Provider: Rob Arredondoending Physician: Dr. PalmerInformant: The patient who is reliable.Chief Complaint: Mild chest pain and shortness of breathHISTORY OF PRESENT ILLNESS: 60 years old white male with a longstanding historyof cardiac murmur who has been followed by his shiatsu therapist on a regular basis.5 months ago he started with dizziness and syncopal episodes with slight chestpressure. He saw his shiatsu therapist and st udies were done. On 02/13/2020 [...] moderate (CAROLA 1.3cm2, mean gradient 23mmHg) - [facility] Echocardiogram 01/08/2016 Normal LV size with [...] Take 50 mg by mouth nightly as wsxael98/30/20 Historical Provider, MDpantoprazole (PROTONIX) 40 MG tablet [...] warm and dry.HEENT: He is normocephalic, atraumatic. Mazon conjunctivae. Anicteric sclerae.Pupils are equal, round, reactive [...] hepatosplenomegaly. Negative CVAT.GENITAL/RECTAL: Deferred.MUSCLE/SKELETAL: Strength is 5/5. Psychopaedic Nurse are equal.NEUROLOGICALLY: Cranial nerves II through XII are grossly intact.VASCULAR: Pulses are symmetrical. No denies edema.Anesthesia complications: DeniesSteroid use: DeniesMER[facility] Frailty [facility] :: 3/10 Managing Well (medical problems are well controlled,but are not regularly active beyond routine walking).Stop Bang Questionnaire - Total Score:STOP-Bang Total Score: 4IMPRESSION and PLAN:Primary Diagnosis: None rheumatic aortic valve insuffi [facility] asper .Secondary Diagnosis and Plan:1. CAD [...] parts of this document, were dictated using [employer]orem software. A reasonable attempt at proofreading has beenmade to minimize errors. Please call with any questions or corrections. Name Value Range Interpretation Code Description Data Debbie nicolee(s) Supporting Document(s) ID Date Data Source [id number] 04/28/2020 02:02:35 PM EDT [facility] [place] [facility] Name Value Range Interpretation Code Description Data Debbie rce(s) Supporting Document(s) SPECIMEN DESCRIPTION [facility] STAPH SCREEN RESULTS (ONEGSA) [facility] COMMENT [facility] [place] [facility] GENE TO DETECT STAPH AUREUS. (2) RT-P CR WAS PERFORMED FOR THE mecA AND SCCmec GENES TO DETECT METHICILLIN RESISTANCE IN STAPH AUREUS. ID Date Data Source [id number] 04/27/2020 04:18:54 PM EDT [facility] [place] [facility] Name Value Range Interpretation Code Description Data Debbie rce(s) Supporting Document(s) SODIUM 136 mmol/L (136-145) [facility] [place] [facility] POTASSIUM 4.9 mmol/L (3.6-5.2) [facility] [place] [facility] CHLORIDE 100 mmol/L (100-108) [facility] [place] [facility] CO2 31 mmol/L (22-31) [facility] [place] [facility] ANION GAP 5 mmol/L (7-16) L [facility] [place] [facility] RESULTS REVIEWED UREA NITROGEN 11 mg/dL (7-24) [facility] [place] [facility] CREATININE 0.77 mg/dL (0.80-1.30) L [facility] [place] [facility] BUN/CREAT RATIO 14.3 RATIO (10.0-20.0) [facility] GLUCOSE 94 mg/dL (70-99) [facility] [place] [facility] CALCIUM 9.6 mg/dL (8.4-10.2) [facility] [place] [facility] TOTAL PROTEIN 6.9 g/dL (6.4-8.2) [facility] [place] [facility] ALBUMIN 4.1 g/dL (3.2-4.5) [facility] [place] [facility] GLOBULIN 2.8 g/dL (2.7-4.3) [facility] [place] [facility] ALB/GLOB RATIO 1.5 RATIO [facility] [place] [facility] ALKALINE PHOSPHATASE 143 U/L (45-117) H [facility] BILIRUBIN,TOTAL 0.3 mg/dL (0.0-1.0) [facility] [place] [facility] PLEASE NOTE:Total bilirubin results may be falselyelevated in patients taking Eltrombopag. AST (SGOT) 17 U/L (11-39) [facility] [place] [facility] ALT (SGPT) 25 U/L (12-78) [facility] [place] [facility] GFR >60 ml/min/1.73m2 (>59) [facility] [place] [facility] GFR ( AMER) >60 ml/min/1.73m2 (>59) [facility] [place] [facility] GFR INTERPRETATION Lab [facility] e of [place] --NORMAL KIDNEY FUNCTION OR MILD DISEASE - GFR >OR= 60CHRONIC KIDNEY DISEASE - GFR 15 - 59RENAL FAILURE - GFR <15 Est. GFR calculation based on the MDRDstudy equation, which assumes a steadystate for creatinine. Est. GFR should notbe used for medication dosing. ID Date Data Source [id number] 04/27/2020 04:18:54 PM EDT Lab [facility] [place] Name Value Range Interpretation Code Description Data Debbie rce(s) Supporting Document(s) NT PRO BNP 191 pg/mL (0-125) H [facility] [place] ID Date Data Source [id number] 04/27/2020 03:25:32 PM EDT Lab [facility] [place] Name Value Range Interpretation Code Description Data Debbie rce(s) Supporting Document(s) HEMOGLOBIN A1C @ 6.0 % (4.0-6.0) [facility] [place] [facility] Performed using Siemens [place] immunoassa y.Care must be taken when interpreting AuY8ncthxlew in patients with a hemoglobin variantor decreased erythrocyte lifespan. Values 5.7 - 6.4% suggest prediabetes.Values >=6.5% are diagnostic for diabetes.REFERENCE: DIABETES CARE 2018: 41(S13-S27). EST AVERAGE GLUCOSE 126 mg/dL Lab [facility] [place] ID Date Data Source [id number] 04/27/2020 03:10:09 PM EDT Lab [facility] [place] Name Value Range Interpretation Code Description Data Debbie rce(s) Supporting Document(s) PT 10.3 s (9.2-11.9) [facility] [place] [facility] INR 0.99 [facility] [place] [facility] SUGGESTED THERAPEUTIC RANGES USING INR F ORSTABILIZED ANTICOAGULATED PATIENTS:STANDARD DOSE THERAPY INR 2.0-3.0 DVT, PE, PREVENT DVT OR EMBOLISMHIGH DOSE THERAPY INR 2.5-3.5 PREVENT EMBOLISM FROM MECHANICAL HEART VALVE ID Date Data Source [id number] 04/27/2020 03:10:09 PM EDT [facility] [place] [facility] Name Value Range Interpretation Code Description Data Debbie rce(s) Supporting Document(s) APTT 24.9 s (22.0-34.3) [facility] [place] [facility] ID Date Data Source [id number] 04/27/2020 02:41:09 PM EDT [facility] [place] [facility] Name Value Range Interpretation Code Description Data Debbie rce(s) Supporting Document(s) WBC 5.4 10*3/uL (4.1-11.0) [facility] [place] [facility] [place] RBC 4.02 10*6/uL (4.60-6.10) L [facility] [place] [facility] HGB 10.0 g/dL (13.5-18.0) L [facility] [place] [facility] HCT 30.9 % (41.0-53.0) L [facility] [place] [facility] MCV 76.7 fL (80.0-95.0) L [facility] [place] [facility] MCH 24.8 pg (27.0-32.0) L [facility] [place] [facility] MCHC 32.3 g/dL (32.0-36.0) [facility] [place] [facility] RDW 19.5 % (10.5-14.5) H [facility] [place] [facility] PLT 468 10*3/uL (150-450) H [facility] [place] [facility] MPV 6.8 fL (7.1-10.7) L [facility] [place] [facility] NEUT % 66.3 % (35.0-75.0) [facility] [place] [facility] LYMPH % 23.1 % (16.0-52.0) [facility] [place] [facility] MONO % 9.1 % (0.0-8.0) H [facility] [place] [facility] EOS % 0.8 % (0.0-5.0) [facility] [place] [facility] BASO % 0.7 % (0.0-4.0) [facility] [place] [facility] NEUT # 3.6 10*3/uL (1.8-7.7) Lab [facility] LYMPH # 1.3 10*3/uL (1.2-4.8) [facility] MONO # 0.5 10*3/uL (0.0-0.8) [facility] Eosinophils [#/volume] in Blood by Automated count 0.0 10*3/uL (0.0-0 .5) [facility] [place] [facility] PETERSEN BASO # 0.0 10*3/uL (0.0-0.2) [facility] [place] [facility] ID Date Data Source [id number] 04/27/2020 09:30:00 AM EDT [facility] Name Value Range Interpretation Code Description Data Debbie rce(s) Supporting Document(s) SARS coronavirus 2 RNA Not Detected [facility] This lab was ordered by [facility] [place] [facility] and reported by [employer]. ID Date Data Source [id number] 04/28/2020 11:07:46 PM EDT [facility] preethi PETERSEN Name Value Range Interpretation Code Description Data Debbie rce(s) Supporting Document(s) SARS-COV-2 RAD [facility] preethi PETERSEN Not DetectedReference range: Not Detecte d This nucleic acid amplification test was developed and its performance characteristics determined by [employer]. Nucleic acid amplification tests include RT-PCR and [...] detected) result in this assay. Performed At: [employer] [place], [place] [id number] Markie Pelaez Padma PhD Ph:[phone] ID Date Data Source [id number] 04/05/2020 10:18:00 AM EST [facility] Name Value Range Interpretation Code Description Data Debbie rce(s) Supporting Document(s) SARS coronavirus 2 RNA [Presence] in Res piratory specimen by RAD with probe detection NEGATIVE [facility] This lab was ordered by [facility] a nd reported by [facility]. ID Date Data Source [id number] 04/02/2020 01:01:10 PM EST [facility] [place] [facility] Name Value Range Interpretation Code Description Data Debbie rce(s) Supporting Document(s) POC SOURCE [facility] [place] [facility] PUNCTURE SITE [facility] [place] [facility] O2 THERAPY [facility] [place] [facility] PAUL TEST [facility] [place] [facility] POC PH 7.46 pH (7.35-7.45) H [facility] [place] [facility] POC PCO2 35.4 MMHG (32.0-48.0) [facility] [place] [facility] POC PO2 81 MMHG (83-108) L [facility] [place] [facility] POC SAT O2 97 % (95-99) [facility] [place] [facility] POC BASE EXCESS 2 MMOL/L (0-3) [facility] [place] [facility] POC HCO3 25.3 MMOL/L (21.0-29.0) [facility] [place] [facility] POC TOTAL CO2 26 MMOL/L (23.0-32.0) [facility] [place] [facility] PERFORMED BY [facility] CLINICAL STAFF ID Date Data Source [id number] 04/02/2020 11:55:00 AM EST [facility]: XRAY CHEST ROUTINE PA [...] rce(s) Supporting Document(s) ID Date Data Source [id number] 04/02/2020 11:44:00 AM EST [facility]TR [facility]OUND CAROTID DUPLEXCLINICAL HISTORY: Pretesting. [...] rce(s) Supporting Document(s) ID Date Data Source [id number] 04/02/2020 11:35:15 AM EST [facility] Name Value Range Interpretation Code Description Data Debbie rce(s) Supporting Document(s) EKG [facility] DIJSId0nVlWFSsYpx1XzKgQyNTVfCX6hkwe8T9F1mLRwP7HtxQYov8fbZ3UrW2ItJKXiQQXXJT8SeYTe jb2 [file] iQ5L+byubZ9Q+wdncX7A+rjtmE7E+khleM7D+qfyrc2T+hrdbw1O+qefhe4H+aywtV5R+jcbaX0W+vgw iU5M+zcoiG9Csc/gW5XMV6aEvBkrUxaJaAigdmbSgT kffybRoUkfjybRpUkfnybRqUkfrybRrUkfvybRsUn9+0VEPT++AoKhht4uJjD8zm1+OhYDxl2iRsICtp 4+SpPXqt3bTyWykc1+NzFljn7sQbRsuf8+GyZfxh3hOkE2xi3+MlBHpt6iQ0MJsq7+R8KHii0xL3Opbf 5+F8Tcva4wG5Tyay7+R4Squn0lI5O0un8+H1HApZ3j UKILlD4+DJGCiP7dBUOmfZ8+IDKkxY6fCBAiuB8+NIOcqC3hIDW5xO9+UKY/lD/+UKY/lD/+UKY/lD/+ UKY/lD/+UKY/lD/+UKY/lD/+UKY/lD/+UKY/lD/+UKY/lD/+UKY/lD/+UKY/lD/+UKY/lD/+UKY/lD/+ UKY/lD/+UKY/lD/+UKY/lL/lR4PT7pvTV7Wg/t0aTV ik+egZlmm+7jXbswe1KqQZru6hDXSl4fszE8IrRu7Rpn+UP/5Qpj+UP/5Qpj+UP/5Qpj+UP/5Qpj+UP/ 5Qpj+UP/5Qpj+UP/5Qpj+UP/5Qpj+UP/5Qpj+UP/5Qpj+UP/5Qpj+UP/5Qpj+UP/5Qpj+UP/5Qpj+UP/ 5Qpj+UP/5Qpj+UP/5Qpj+UP/5Qpj+UP/5Qpj+UP/5Q pj+UP/5Qpj+UP/5Qpj+UP/5Qpj+UP/5Qpj+UP/5Qpj+UP/5Qpj+UP/5Qpj+UP/5Qpj+UP/5Qpj+UP/5Q pj+UP/5Qpj+UP/5Qpj+UP/5Qpj+UP/5Q/UXDl/MQ01OKL7AGVa0yNMnacS3u2I5OiFM6pnFC4MFCC4AQ Jc97CeQ+llng1fRlK5W+lhsG2mXaY1Z+kiyC1hZcD7 E+kevX8sAwH6K+tocR5aUlJ9E+dqpV9fXcY3F+bmbK5mMdI8B+buxB3wIzJ1E+znkA6lLxJ8O+lfo06t OoT6M+nzf30cCyD4P+bna54eWvH4U+DVY96tQoY7J+rso91gCjG4i+smg03iHiQ8q+emr85rAbH6h+nf n46fPlQ5o+hjuN8oBph7W+g/tI5sCrv1F+g/oM6jOo z6A+g/cQ7lCql2F+g/aT5rPhd9C+k/kM2kYsj4U+k/xJ0qUqp5U+k/hA6gCrz9K+k/ff0tPba6X+i/os 9eAdf2F+i/dm9hCmo1O+i/ze5fJmj0D+i/cuwgoayn8gAAsrMh0DPogPdcOgooKrhHWsNSbAQ+sT5tYn BW5KaY5zIU6+Cn7R6IfKvjY1Z4Z/KCQTVi1S9AtLgn T0S0G/7ApO9eF3P5X1nK2K6B0UmXEJ4AXRiVII1WKGoJEK7PQVjYPQ7NNHyRXS7FCMtCPL3UHIrOGB2L XBkUdB5OeDsWlH7BjLcZxT5TdOjCeM6OhUxKkH0XeHjCeN9FmRvG6M3V1XsL8R5D6WtZ0J6D1SjDVC9N MNkCGO4DVAiMXJ3CQAjYSF7FGOuGRG1NXTlPSD7WFR mOCC2VROuXhI7HlGxDdM0ByLcTgN2IlZsIlU0XbHeWtA6KiTyLmP67wdoxO4GRxlkc/t3Cwm0yoqC/N1 N4wzXdLJWR7TnCtLyaArunIibNtygBbctHAlPhxgdDahnUvPIOoV04LWO7I7YOMOJL6N7WCEZ9Y27kWP A0+N+NTAUyM+RpNKsS8UQGYmZiwPrX0ne6L/vfywm5 9PPz/z5PkoESMIt4WEC/nYSKKRpI+VJJpJ+ziZsiFey9FwtlmsF2gW0ky7rsnEJxtWmVAuCyXNZfX+Truck 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 GenaoInformant: The patient who is [...] by his PCP.Subsequently he was referred to shiatsu therapist Dr. Villaseñor. On 02/13/2020 heunderwent TTE which [...] moderate (CAROLA 1.3cm2, mean gradient 23mmHg) - [facility] Echocardiogram 01/08/2016 Normal LV size with [...] Take 15 mg by mouth nightly as /7/20 Historical Provider, nortriptyline (PAMELOR) 25 MG capsule Take 50 mg by mouth nightly as nlvaaa35/30/20 Historical Provider, MDpantoprazole (PROTONIX) 40 MG tablet [...] warm and dry.HEENT: He is normocephalic, atraumatic. Mazon conjunctivae. Anicteric sclerae.Pupils are equal, round, reactive [...] hepatosplenomegaly. Negative CVAT.GENITAL/RECTAL: Deferred.MUSCLE/SKELETAL: Strength is 5/5. Psychopaedic Nurse are equal. Spinal cord stimulatorintact to lower [...] has no known drug allergies.04/02/2020 11:28 AMLyudmijean palu Byrd, NPThis document or parts of this document, were dictated using [employer] speaking software. A reasonable attempt at proofreading has beenmade to minimize errors. Please call with any questions or corrections. Name Value Range Interpretation Code Description Data Debbie rce(s) Supporting Document(s) ID Date Data Source [id number] 04/02/2020 10:01:02 PM EST [facility] [place] [facility] SPEC EXP DATE 1PATI ENT ABO/Rh A POSITIVEANTIBODY SCREEN NEGATIVETESTING SITE PERFORMED AT [address] [place] [address] Name Value Range Interpretation Code Description Data Debbie rce(s) Supporting Document(s) TYPE AND SCREEN [facility] [place] [facility] ID Date Data Source [id number] 04/02/2020 07:01:34 PM EST [facility] [place] [facility] Name Value Range Interpretation Code Description Data Debbie rce(s) Supporting Document(s) HEMOGLOBIN A1C @ 5.9 % (4.0-6.0) [facility] [place] [facility] Performed using Siem[employer] [place] immunoassa y.Care must be taken when interpreting XjA3pksgslan in patients with a hemoglobin variantor decreased erythrocyte lifespan. Values 5.7 - 6.4% suggest prediabetes.Values >=6.5% are diagnostic for diabetes.REFERENCE: DIABETES CARE 2018: 41(S13-S27). EST AVERAGE GLUCOSE 123 mg/dL [facility] [place] [facility] ID Date Data Source [id number] 04/02/2020 06:39:07 PM EST [facility] [place] [facility] Name Value Range Interpretation Code Description Data Debbie rce(s) Supporting Document(s) ROOM TEMP AB SCREEN [facility] ROOM TEMP AB SCREEN NEGATIVE ID Date Data Source [id number] 04/02/2020 06:16:26 PM EST [facility] [place] [facility] Name Value Range Interpretation Code Description Data Debbie rce(s) Supporting Document(s) NT PRO BNP 163 pg/mL (0-125) H [facility] [place] [facility] ID Date Data Source [id number] 04/02/2020 06:16:26 PM EST [facility] [place] [facility] Name Value Range Interpretation Code Description Data Debbie rce(s) Supporting Document(s) SODIUM 134 mmol/L (136-145) L [facility] [place] [facility] POTASSIUM 4.8 mmol/L (3.6-5.2) [facility] [place] [facility] CHLORIDE 97 mmol/L (100-108) L [facility] [place] [facility] CO2 29 mmol/L (22-31) [facility] [place] [facility] ANION GAP 8 mmol/L (7-16) [facility] [place] [facility] UREA NITROGEN 12 mg/dL (7-24) [facility] [place] [facility] CREATININE 0.89 mg/dL (0.80-1.30) [facility] [place] [facility] BUN/CREAT RATIO 13.5 RATIO (10.0-20.0) [facility] GLUCOSE 99 mg/dL (70-99) [facility] [place] [facility] CALCIUM 9.5 mg/dL (8.4-10.2) [facility] [place] [facility] TOTAL PROTEIN 7.1 g/dL (6.4-8.2) [facility] [place] [facility] ALBUMIN 4.2 g/dL (3.2-4.5) [facility] [place] [facility] GLOBULIN 2.9 g/dL (2.7-4.3) [facility] [place] [facility] ALB/GLOB RATIO 1.4 RATIO [facility] [place] [facility] ALKALINE PHOSPHATASE 139 U/L (45-117) H [facility] BILIRUBIN,TOTAL 0.4 mg/dL (0.0-1.0) [facility] [place] [facility] PLEASE NOTE:Total bilirubin results may be falselyelevated in patients taking Eltrombopag. AST (SGOT) 20 U/L (11-39) [facility] [place] [facility] ALT (SGPT) 27 U/L (12-78) [facility] [place] [facility] GFR >60 ml/min/1.73m2 (>59) [facility] [place] [facility] GFR ( AMER) >60 ml/min/1.73m2 (>59) [facility] [place] [facility] GFR INTERPRETATION [facility] --NORMAL KIDNEY FUNCTION OR MILD DISEASE - GFR >OR= 60CHRONIC KIDNEY DISEASE - GFR 15 - 59RENAL FAILURE - GFR <15 Est. GFR calculation based on the MDRDstudy equation, which assumes a steadystate for creatinine. Est. GFR should notbe used for medication dosing. ID Date Data Source [id number] 04/02/2020 04:34:24 PM EST [facility] [place] [facility] Name Value Range Interpretation Code Description Data Debbie rce(s) Supporting Document(s) WBC 6.1 10*3/uL (4.1-11.0) [facility] RBC 3.38 10*6/uL (4.60-6.10) L [facility] HGB 8.3 g/dL (13.5-18.0) [facility] HCT 25.5 % (41.0-53.0) [facility] MCV 75.5 fL (80.0-95.0) [facility] MCH 24.5 pg (27.0-32.0) [facility] MCHC 32.5 g/dL (32.0-36.0) [facility] RDW 16.8 % (10.5-14.5) [facility] PLT 513 10*3/uL (150-450) [facility] MPV 6.5 fL (7.1-10.7) [facility] NEUT % 72.2 % (35.0-75.0) [facility] LYMPH % 16.7 % (16.0-52.0) [facility] MONO % 9.8 % (0.0-8.0) [facility] EOS % 0.4 % (0.0-5.0) [facility] BASO % 0.9 % (0.0-4.0) [facility] NEUT # 4.4 10*3/uL (1.8-7.7) [facility] LYMPH # 1.0 10*3/uL (1.2-4.8) L [facility] MONO # 0.6 10*3/uL (0.0-0.8) [facility] Eosinophils [#/volume] in Blood by Automated count 0.0 10*3/uL (0.0-0 .5) [facility] BASO # 0.1 10*3/uL (0.0-0.2) [facility] ID Date Data Source [id number] 04/02/2020 04:28:10 PM EST [facility] Name Value Range Interpretation Code Description Data Debbie rce(s) Supporting Document(s) PT 10.4 s (9.2-11.9) [facility] INR 1.00 [facility] SUGGESTED THERAPEUTIC RANGES USING INR F ORSTABILIZED ANTICOAGULATED PATIENTS:STANDARD DOSE THERAPY INR 2.0-3.0 DVT, PE, PREVENT DVT OR EMBOLISMHIGH DOSE THERAPY INR 2.5-3.5 PREVENT EMBOLISM FROM MECHANICAL HEART VALVE ID Date Data Source [id number] 04/02/2020 04:28:10 PM EST [facility] Name Value Range Interpretation Code Description Data Debbie rce(s) Supporting Document(s) APTT 21.5 s (22.0-34.3) L [facility] ID Date Data Source [id number] 04/02/2020 07:35:56 PM EST [facility] Name Value Range Interpretation Code Description Data Debbie rce(s) Supporting Document(s) COLOR [facility] APPEARANCE [facility] SPEC GRAV URINE 1.008 (1.003-1.030) [facility] PH URINE 7.0 (5.0-7.5) [facility] LEUK ESTERASE (NEG) [facility] NITRITE URINE (NEG) [facility] PROTEIN URINE (NEG) [facility] GLUCOSE URINE (NEG) [facility] KETONE URINE (NEG) [facility] UROBILINOGEN 0.2 mg/dL (0-1.0) [facility] BILIRUBIN URINE (NEG) [facility] BLOOD/HGB URINE (NEG) [facility] ID Date Data Source [id number] 04/03/2020 03:16:07 PM EST [facility] [facility] SPECIMEN DESCRIPTION MIDSTREAM UR INE,CLEAN CATCHCULTURE RESULTS NO GROWTHREPORT STATUS FINAL 04/03/2020 Name Value Range Interpretation Code Description Data Debbie rce(s) Supporting Document(s) ID Date Data Source [id number] 04/03/2020 11:20:01 AM EST [facility] Name Value Range Interpretation Code Description Data Debbie rce(s) Supporting Document(s) SPECIMEN DESCRIPTION [facility] STAPH SCREEN RESULTS (ONEGSA) [facility] COMMENT [facility] GENE TO DETECT STAPH AUREUS. (2) RT-P CR WAS PERFORMED FOR THE mecA AND [employer] GENES TO DETECT METHICILLIN RESISTANCE IN STAPH AUREUS. ID Date Data Source [id number] 04/02/2020 09:45:00 AM EST [facility] Name Value Range Interpretation Code Description Data Debbie rce(s) Supporting Document(s) SARS coronavirus 2 RNA Not Detected [facility] This lab was ordered by [facility] [place] [employer] [facility] [employer] [facility] and reported by [employer]. ID Date Data Source [id number] 04/03/2020 06:08:42 PM EST [facility] Name Value Range Interpretation Code Description Data Debbie rce(s) Supporting Document(s) SARS-COV-2 RAD [facility] Not DetectedReference range: Not Detecte d This nucleic acid amplification test was developed and its performance characteristics determined by [employer]. Nucleic acid amplification tests include RT-PCR and [...] detected) result in this assay. Performed At: [employer] [place], [place] [id number] Markie Rouse PhD Ph:[phone] ID Date Data Source [id number] 02/24/2020 03:01:28 PM EST [facility] NT INFORMATIONPatient MRN Name Date of Age Gend*PT [id number] Hiral Ferreira 1960 59 years M ---PT Location Admission Date/Time Visit ID Attending Provider --- --- --- --- EPI ID CSN Admitting Provider [id number] ---Addended by: ISAC JONES on: 02/24/2020 03:01 PM Modules accepted: Orders, SmartSet Name Value Range Interpretation Code Description Data Debbie rce(s) Supporting Document(s) ID Date Data Source [id number] 02/24/2020 02:49:19 PM EST [facility] NT INFORMATIONPatient MRN Name Date of Age Gend*PT [id number] Hiral Ferreira 1960 59 years M HOPPT Location Admission Date/Time Visit ID Attending ProviderCV-16 02/24/20 0614 --- --- EPI ID CSN Admitting Provider [id number] Marla Marino MD([id number])Cardiothoracic Surgery ConsultMichaeelvie Smith: [phone] for consult: aortic valve stenosisAssessment/Plan:Active Problems: Peripheral [...] moderate (CAROLA 1.3cm2, mean gradient 23mmHg) - [facility] Echocardiogram 01/08/2016 Normal LV size with [...] Name Value Range Interpretation Code Description Data [facility] Supporting Document(s) ID Date Data Source [id number] 02/24/2020 10:13:33 AM EST [facility] Name Value Range Interpretation Code Description Data [facility](s) Supporting Document(s) &PDF [facility] FTRGXg3iDyEKWeVl60/BBNsbREOpx4LlJVarAHw9OSzeZVVgB2FeiImhHJrUN6HCSlgUJWYFAMZMWO1m oRX [file] ICAgICAgICAgICAgICAgICAgICAgICAgICAgICAgIC AyHSSbXJBfSPNcHCRgSLUnHEAlDJDdBXWdJA7AHHDvEFLwSCLrYNOrUVJvEZOyLRTdMMXbYNYeCXIpAD AgICAgICAgICAgICAgICAgICAgICAgICAgICAgICAgICAgICAgICAgICAgICAgICAgICAgICAgICAgIC DxPGAzUAMdPY3EIEMzOMXtCHJfFZOtGURiHLTkNHPt ICAgICAgICAgICAgICAgICAgICAgICAgICAgICAgICAgICAgICAgICAgICAgICAgICAgICAgICAgICAg YTSpPTQsXCSlVRUcXEZrHVMaTH1DJLJmRHCwLPQfLQPrYJIcFZDzJNIpGGFkUHYnXGVrKKJoLYVlTBWq ICAgICAgICAgICAgICAgICAgICAgICAgICAgICAgIC EkOQCpPVEaCOJdHBWdCFLvRHMgGBMcBUAhSDIuUI1XKZMsSIHnTNUyUWAqUQJoDQFmOKBnDBWgALMpFW AgICAgICAgICAgICAgICAgICAgICAgICAgICAgICAgICAgICAgICAgICAgICAgICAgICAgICAgICAgIC BmYXNbJTXfFZZnXX3CZRByMPLrTHGlTUAkIETvOSCh ICAgICAgICAgICAgICAgICAgICAgICAgICAgICAgICAgICAgICAgICAgICAgICAgICAgICAgICAgICAg DAMfFCTvWITlUOIzJEBuJQInRZVcQJ4KSYDaIEKcTCXhODYyBQGaBBLpWLHuAIOzPYPpTVObLOUzEVXu ICAgICAgICAgICAgICAgICAgICAgICAgICAgICAgIC DoZPRxKPFnPXPgTYRvKLJcTPPnVDPdBAZgLZVjCBZzGG4HFXEyHEHkQGKcOBWqEFJoXWFpDAZmJXIpZP AgICAgICAgICAgICAgICAgICAgICAgICAgICAgICAgICAgICAgICAgICAgICAgICAgICAgICAgICAgIC TxVYCnINEoDXJfJVLsIV8BZAFpDSOlBOYzIXErERFb ICAgICAgICAgICAgICAgICAgICAgICAgICAgICAgICAgICAgICAgICAgICAgICAgICAgICAgICAgICAg NYNxINDwUGTyRCVvUOMbNIXxWQTqTOCzNJ7TWURvTYIoDWKhYQYwKUHxQFWgCLXvDJSqSJMhPDIaIPRf ICAgICAgICAgICAgICAgICAgICAgICAgICAgICAgIC HjGWNbZARsDCZbAFAcWIAiVBDkECHlWUYcBWUuAGGmHIZeZT3GYU03tJMkq4Z9UOHeZO8bjyo/Pg0KDQ fcbgEllAAeSD2ADmEzIL7owp2JXlOwWS1hzi8UDEuMAbLzB3Q9qIScYUVlNZMWKnGuN13jQAwhEb00IL eyJADgAqUsOHx5Oj5OSgTeQ9thBQUyOeK2PXUhHzC1 EWAjUdZ8DODtCvFcILVmSFMwRT9QYTJsQ632bhYfFH2JEv7OOeCgBN2apf6UUgVyQBEaShrILjm9RBpv KQ3QhACbuTErCrSaOJGUDfAnB2pwj0QmIiwjICEMHOasYL0Xc7HdqDOdEBi+As1XEH3vj0TdYPzyLlId UP6qac9NJHmSVbWjP1TbtVxlWMejaXoxqsJkXG6WGH DkNKHzcSAkGSezFTYOIR0ZTWbvPNG2MrhgrsCccRYqPOslVK1EKHYpfbQvHlUzIOEQDKr+Hi7LFZ3qj6 OrELrwWWBmAY6yce2XPLnAZxVoC0G2qTKxR2Q9WNwlBt5VLURnPYTsUtZjIOZDIBdbKR3GUV7hngC8YF 8EjAJtUGWzNRIcjQQlXNz9S31snVHwMMwkHW8MCYO+ Krysta+Sn7PDNYaJOUwIVMdChRqQHPQKwYiS2FsS3MUy6KvE2FwGJ60nJnastQwKPxpCB9KFB5zZHXzSIVR FZ8LdSXtcI8wicZnVbRxKCYPBaIrC96vkERbMYHeTTX1LXPoMo1JHKPbZ9VvwxVouJhcfvNpSBNkHJMZ PK2JEDqdhlRucMIplUbzYN61aWshKP9GKk7BUpMvQH 7tyj8CdSAxQm0PWRXnXQ8QLSQySXBcEVTjKOD6EIJwTxAcDNnqQRZbFZHyUVS0NLByWWMgCJ8RJiXcAK QhPPF3JYJqRWNmCROpad2TBUSePTJ6CGypFZTbTTWxZEHnPFeoQRDjRZIyTMarSVCbLFAdVL5VXjXhLE QhZEVkCwvjGTNsSBPbih1WQZTjAOLyEtNwVHLzJKXb MXYkFIvhVERoNVT3KFcmBOZcIGAbIC5BTwLcPUUpQXCvNlVeUXLiUKHudr0PXXMsREGvYzq2PvIjBVWd RUFqVGnbFEMcSTW5MBSuNEMtGGSfZT8GKhEtGBXvDBteXrlyCSEbUZReur9VLBLpPVIdXCFaQFPgESOx PRXlMNvuEKSoUKF7Fll5KFPaUJBoQZ3TIkLjRHZqUZ w7LMQtHNWvBUSfsp2TRRVzNEWwWTg9SXMdSAXiDHJjYFmcKJSrOZGvKrJrFPVtTDOmYQ5HXnLeVQVjMN O8CfBwDUWoUELobk2MJDHzJDXhCMQpSfTjLTBjFWGiQEjiXRDlAYV4GCN1TYLxNXFzTI8GIySfCOIsUC F3GjJyRUXmNIHtgs0ICJCnVYBxFmH6PHEuVFRaJJTr KQsgMLLzSZT7BHNjUFEyEJPrRC4DMtWaPVNmWbedBPSbSCSsETIfpi1RKPBgEND1Brr0UzEaNMYoARUt CPkcVTGxDJS0SxfdTRVtTYVwQL1QAdEjWUWyVRd8LgwhTCKhBYBnla7PQYVgTOT6GZj3AOZjIYHuDBUu QTdyCQXsJUW2KUq0GHQoKAXqCT4ZKnPlFDecZSWCAo b6KKfmE0r7XPWbSC0RV3Vxo1YyKqcpSFQJDMraUN5zezIbEXJpOc3TH2kQSvv0U4V2SzV9PVJ3EPrvFP c8XZR2JkhfOQUiWDMcJ2K2LS1lIHh6WPmtIyzqCkVkWxW4JJn7HNW8RRAuYhSsVVAyBkygBaVdHC4YDn 3WAcG1CVT0wLWpGm4IHBatRAFUBtTuFS6YRLm= ID Date Data Source [id number] 02/24/2020 06:53:35 AM EST [facility] Name Value Range Interpretation Code Description Data Edbbie rce(s) Supporting Document(s) EKG [facility] LHMCXy6vJkPDRvQlj1DvUnLzOWBoOH0rulz0L1R4qDZsV0FgaFLay7tsO5IeC4TfLPDpUAVSGY7PnKBk jb2 [file] ++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/P+/nhC/z3nGBuehCgkfa22Hq3+qavH90zr304bjI7lbwcGXBKRLDJ+aqQJEO+SbZSst5FXOEkg4 [file] ddDPE2Hh3LaiDdYUUjEIYKLj2Jc603YREbDSMAFvr+BgtxfIYuaQutVPLMPBG3QQDPVLDOQ5G= ID Date Data Source [id number] 02/24/2020 07:33:30 AM EST [facility] Name Value Range Interpretation Code Description Data Debbie rce(s) Supporting Document(s) SODIUM 137 mmol/L (136-145) [facility] POTASSIUM 4.5 mmol/L (3.6-5.2) [facility] SLIGHT HEMOLYSIS CHLORIDE 101 mmol/L (100-108) [facility] CO2 26 mmol/L (22-31) [facility] ANION GAP 10 mmol/L (7-16) [facility] UREA NITROGEN 14 mg/dL (7-24) [facility] CREATININE 0.94 mg/dL (0.80-1.30) [facility] BUN/CREAT RATIO 14.9 RATIO (10.0-20.0) [facility] GLUCOSE 106 mg/dL (70-99) H [facility] CALCIUM 9.2 mg/dL (8.4-10.2) [facility] GFR >60 ml/min/1.73m2 (>59) [facility] GFR ( AMER) >60 ml/min/1.73m2 (>59) [facility] GFR INTERPRETATION Lab [facility] [place] --NORMAL KIDNEY FUNCTION OR MILD DISEASE - GFR >OR= 60CHRONIC KIDNEY DISEASE - GFR 15 - 59RENAL FAILURE - GFR <15 Est. GFR calculation based on the MDRDstudy equation, which assumes a steadystate for creatinine. Est. GFR should notbe used for medication dosing. ID Date Data Source [id number] 02/24/2020 06:53:36 AM EST [facility] [place] Name Value Range Interpretation Code Description Data Debbie rce(s) Supporting Document(s) WBC 7.4 10*3/uL (4.1-11.0) [facility] [place] [facility] [place] RBC 3.68 10*6/uL (4.60-6.10) L [facility] HGB 9.7 g/dL (13.5-18.0) [facility] HCT 29.1 % (41.0-53.0) [facility] [place] [facility] PERFORMED AT [address] [place] [address] N [place] [address] MCV 78.9 fL (80.0-95.0) [facility] MCH 26.3 pg (27.0-32.0) [facility] MCHC 33.3 g/dL (32.0-36.0) [facility] RDW 17.1 % (10.5-14.5) [facility] PLT 391 10*3/uL (150-450) [facility] MPV 6.3 fL (7.1-10.7) [facility] ID Date Data Source [id number] 02/19/2020 10:00:00 AM EST [facility] Name Value Range Interpretation Code Description Data Debbie rce(s) Supporting Document(s) SARS coronavirus 2 RNA Not Detected [facility] This lab was ordered by [facility] and reported by [facility]. ID Date Data Source H PYLORI SERUM QUANT IGM 01/24/2020 12:00:00 AM EST eCW1 ([facility]) Name Value Range Interpretation Code Description Data Debbie rce(s) Supporting Document(s) <9.0 0.0-8.9 H PYLORI SERUM QUANT IGM eCW1 ([facility]) ID Date Data Source H PYLORI SERUM QUANT IGA 01/24/2020 12:00:00 AM EST eCW1 ([facility]) Name Value Range Interpretation Code Description Data Debbie rce(s) Supporting Document(s) <9.0 0.0-8.9 H PYLORI SERUM QUANT IGA eCW1 ([facility]) ID Date Data Source H PYLORI SERUM QUANT IgG REINALDO 01/24/2020 12:00:00 AM EST eCW1 ([facility]) Name Value Range Interpretation Code Description Data Debbie rce(s) Supporting Document(s) 0.50 0.00-0.79 H PYLORI SERUM QUANT IgG REINALDO eCW1 ([facility]) ID Date Data Source [id number] 01/18/2020 11:54:00 AM EST [facility] Name Value Range Interpretation Code Description Data Debbie rce(s) Supporting Document(s) SARS coronavirus 2 RNA [Presence] in Res piratory specimen by RAD with probe detection [facility] This lab was ordered by [facility] a nd reported by [facility]. ID Date Data Source DDIMER QUANT 01/17/2020 12:00:00 AM EST eCW1 ([facility]) Name Value Range Interpretation Code Description Data Debbie rce(s) Supporting Document(s) 1365.93 <500 D-DIMER QUANT eCW1 ([facility]) ID Date Data Source MAGNESIUM LEVEL 01/17/2020 12:00:00 AM EST eCW1 ([facility]) Name Value Range Interpretation Code Description Data Debbie rce(s) Supporting Document(s) 2.4 1.8-2.4 MAGNESIUM LEVEL eCW1 ([facility]) ID Date Data Source CARDIAC MARKER PANEL 01/17/2020 12:00:00 AM EST eCW1 ([facility]) Name Value Range Interpretation Code Description Data Debbie rce(s) Supporting Document(s) 124 39-308 CPK CREATINE PHOSPHOKINASE eCW 1 ([facility]) 1.9 <3.6 CK-MB VALUE MASS eCW1 ([facility]) < 0.02 < 0.10 TROPONIN I eCW1 ([facility]) 1.53 < OR =4 MB/CK RELATIVE INDEX eCW1 ([facility]) ID Date Data Source C REACTIVE PROTEIN QUANTITATIV (At [facility]) 12/09/2019 12:00 :00 AM EDT eCW1 ([facility]) Name Value Range Interpretation Code Description Data Debbie rce(s) Supporting Document(s) 0.37 0.00-0.30 C REACTIVE PROTEIN QUANTI TATIV eCW1 ([facility]) ID Date Data Source ERYTHROCYTE SEDIMENTATION RATE 12/09/2019 12:00:00 AM EDT eC W1 ([facility]) Name Value Range Interpretation Code Description Data Debbie rce(s) Supporting Document(s) 8 0-20 ERYTHROCYTE SEDIMENTATION RATE eCW1 ([facility]) Procedure Social History Code Duration Value Status Description Data Source(s ) Smoking 10/08/2020 12:00:00 AM EDT Former Smoker completed Former Smoker eCW1 ([facility]) Smoking 10/08/2020 12:00:00 AM EDT Former Smoker completed Former Smoker eCW1 ([facility]) Smoking 10/08/2020 12:00:00 AM EDT Former Smoker completed Former Smoker eCW1 ([facility]) Smoking 10/08/2020 12:00:00 AM EDT Former Smoker completed Former Smoker eCW1 ([facility]) Alcohol intake 09/17/2020 12:00:00 AM EDT Ex-drinker (finding) comp leted Ex- drinker (finding) [facility] Smoking 08/06/2020 12:00:00 AM EDT Former Smoker completed Former Smoker eCW1 ([facility]) Smoking 08/06/2020 12:00:00 AM EDT Former Smoker completed Former Smoker eCW1 ([facility]) Smoking 08/06/2020 12:00:00 AM EDT Former Smoker completed Former Smoker eCW1 ([facility]) Alcohol intake 06/14/2020 12:00:00 AM EDT Ex-drinker (finding) comp leted Ex- drinker (finding) [facility] Smoking 05/30/2020 12:00:00 AM EDT Former Smoker completed Former Smoker eCW1 ([facility]) Smoking 05/30/2020 12:00:00 AM EDT Former Smoker completed Former Smoker eCW1 ([facility]) Smoking 05/30/2020 12:00:00 AM EDT Former Smoker completed Former Smoker eCW1 ([facility]) Alcohol intake 05/16/2020 12:00:00 AM EDT Not Currently completed [facility] Cigarette pack-years 05/16/2020 12:00:00 AM EDT UNK completed [facility] Cigarettes smoked current (pack per day) - Reported 05/17/19 12:00:00 AM EDT UNK completed [facility] Smoking 05/16/2020 12:00:00 AM EDT Former smoker completed Former smoker [facility] Cigarette pack-years 05/03/2020 12:00:00 AM EDT UNK completed [facility] Cigarettes smoked current (pack per day) - Reported 05/04/19 12:00:00 AM EDT UNK completed [facility] Smoking 05/03/2020 12:00:00 AM EDT Former smoker completed Former smoker [facility] Alcohol intake 05/03/2020 12:00:00 AM EDT Yes completed [facility] Alcohol intake 04/27/2020 12:00:00 AM EDT Yes completed [facility] Cigarette pack-years 04/27/2020 12:00:00 AM EDT UNK completed [facility] Cigarettes smoked current (pack per day) - Reported 04/28/19 12:00:00 AM EDT UNK completed [facility] Smoking 04/27/2020 12:00:00 AM EDT Former smoker completed Former smoker [facility] Alcohol intake 04/16/2020 12:00:00 AM EST Yes completed [facility] Cigarette pack-years 04/16/2020 12:00:00 AM EST UNK completed [facility] Cigarettes smoked current (pack per day) - Reported 04/17/19 12:00:00 AM EST UNK completed [facility] Smoking 04/16/2020 12:00:00 AM EST Former smoker completed Former smoker [facility] Smoking 04/13/2020 12:00:00 AM EST Former Smoker completed Former Smoker eCW1 ([facility]) Alcohol intake 04/02/2020 12:00:00 AM EST Yes completed [facility] Cigarette pack-years 04/02/2020 12:00:00 AM EST UNK completed [facility] Cigarettes smoked current (pack per day) - Reported 04/02/19 12:00:00 AM EST UNK completed [facility] Smoking 04/02/2020 12:00:00 AM EST Former smoker completed Former smoker [facility] Alcohol intake 03/15/2020 12:00:00 AM EST Yes completed [facility] Smoking 03/15/2020 12:00:00 AM EST Former smoker completed Former smoker [facility] Alcohol intake 02/24/2020 12:00:00 AM EST Yes completed [facility] Smoking 02/24/2020 12:00:00 AM EST Former smoker completed Former smoker [facility] Smoking 02/20/2020 12:00:00 AM EST Former Smoker completed Former Smoker eCW1 ([facility]) Smoking 02/20/2020 12:00:00 AM EST Former Smoker completed Former Smoker eCW1 ([facility]) Smoking 02/20/2020 12:00:00 AM EST Former Smoker completed Former Smoker eCW1 ([facility]) Smoking 02/20/2020 12:00:00 AM EST Former Smoker completed Former Smoker eCW1 ([facility]) Tobacco use and exposure 02/09/2020 12:00:00 AM EST Never used co mpleted Never used [facility] Cigarette pack-years 02/09/2020 12:00:00 AM EST UNK completed [facility] Cigarettes smoked current (pack per day) - Reported 02/09/20 20 12:00:00 AM EST UNK completed [facility] Smoking 02/09/2020 12:00:00 AM EST Former smoker completed Former smoker [facility] Alcohol intake 02/09/2020 12:00:00 AM EST Yes completed [facility] Smoking 02/09/2020 12:00:00 AM EST Former smoker completed Former smoker [facility] Smoking 02/06/2020 12:00:00 AM EST Former Smoker completed Former Smoker eCW1 ([facility]) Smoking 02/06/2020 12:00:00 AM EST Former Smoker completed Former Smoker eCW1 ([facility]) Smoking 02/06/2020 12:00:00 AM EST Former Smoker completed Former Smoker eCW1 ([facility]) Smoking 02/06/2020 12:00:00 AM EST Former Smoker completed Former Smoker eCW1 ([facility]) Smoking 01/16/2020 12:00:00 AM EST Former Smoker completed Former Smoker eCW1 ([facility]) Smoking 01/16/2020 12:00:00 AM EST Former Smoker completed Former Smoker eCW1 ([facility]) Smoking 01/16/2020 12:00:00 AM EST Former Smoker completed Former Smoker eCW1 ([facility]) Smoking 01/16/2020 12:00:00 AM EST Former Smoker completed Former Smoker eCW1 ([facility]) Smoking 12/15/2019 12:00:00 AM EST Patient is a former smoker completed Patient is a former smoker MEDENT ([facility]) Smoking 12/09/2019 12:00:00 AM EDT Former Smoker completed Former Smoker eCW1 ([facility]) Smoking 12/09/2019 12:00:00 AM EDT Former Smoker completed Former Smoker eCW1 ([facility]) Smoking 12/09/2019 12:00:00 AM EDT Former Smoker completed Former Smoker eCW1 ([facility]) Vital Signs ID Date Data Source UNK Name Value Range Interpretation Code Description Data Source(s) Body surface area Derived from formula 2.17 m2 2.17 m2 [facility] ([facility]) Body weight 214.50 [lb_av] 214.50 [lb_av] MEDEN T ([facility]) Body mass index (BMI) [Ratio] 29.9 kg/m2 29.9 k g/m2 [facility] ([facility]) [place] body weight 172 [lb_av] 172 [lb_av] MEDEN T ([facility]) Body weight 97.297 kg 97.297 kg [facility] ([facility]) Heart rate 78 /min 78 /min [facility] ([facility]) Body temperature 97.3 [degF] 97.3 [degF] [facility] ([facility]) Body height 71 [in_i] 71 [in_i] [facility] ([facility]) 5'11" Body weight 215 [lb_av] 215 [lb_av] eCW1 ([facility]) Body height [in_i] eCW1 ([facility]) Body mass index (BMI) [Ratio] 29.98 kg/m2 29.98 kg/m2 W1 ([facility]) Heart rate 71 /min 71 /min eCW1 ([facility]) Respiratory rate 18 /min 18 /min eCW1 ([facility]) Body temperature 95.4 [degF] 95.4 [degF] eCW1 ( [facility]) Systolic blood pressure 132 mm[Hg] 132 mm[Hg] e CW1 ([facility]) Diastolic blood pressure 68 mm[Hg] 68 mm[Hg] eCW1 ([facility]) Systolic blood pressure 138 mm[Hg] 138 mm[Hg] [facility] Body weight 97.523 kg 97.523 kg [facility] Body mass index (BMI) [Ratio] 29.99 kg/m2 29.99 kg/m2 [facility] Oxygen saturation in Arterial blood by Pulse oximetry 94 % 94 % [facility] Diastolic blood pressure 88 mm[Hg] 88 mm[Hg] [facility] Heart rate 69 /min 69 /min [facility] Body height 180.3 cm 180.3 cm [facility] Body weight 214 [lb_av] 214 [lb_av] eCW1 ([facility]) Body height [in_i] eCW1 ([facility]) Body mass index (BMI) [Ratio] 29.84 kg/m2 29.84 kg/m2 eCW1 ([facility]) Heart rate 75 /min 75 /min eCW1 ([facility]) Respiratory rate 18 /min 18 /min eCW1 ([facility]) Body temperature 97.5 [degF] 97.5 [degF] eCW1 ( [facility]) Systolic blood pressure 128 mm[Hg] 128 mm[Hg] e CW1 ([facility]) Diastolic blood pressure 82 mm[Hg] 82 mm[Hg] eCW1 ([facility]) Systolic blood pressure 162 mm[Hg] 162 mm[Hg] Meghan REBOLLAR ([facility], ) Body height 71 [in_i] 71 [in_i] [facility] ([facility], ) 5'11" Body mass index (BMI) [Ratio] 28.7 kg/m2 28.7 k g/m2 [facility] ([facility], ) Body weight 206.12 [lb_av] 206.12 [lb_av] MEDEN T ([facility], ) [place] body weight 172 [lb_av] 172 [lb_av] MEDEN T ([facility], ) Body weight 93.498 kg 93.498 kg [facility] ([facility]) Body surface area Derived from formula 2.14 m2 2.14 m2 [facility] ([facility]) Diastolic blood pressure 88 mm[Hg] 88 mm[Hg] [facility] ([facility]) Body surface area Derived from formula 2.14 m2 2.14 m2 [facility] ([facility]) Body weight 93.498 kg 93.498 kg [facility] ([facility]) Body height 71 [in_i] 71 [in_i] [facility] ([facility]) 5'11" Body weight 206.12 [lb_av] 206.12 [lb_av] MEDEN T ([facility]) Body mass index (BMI) [Ratio] 28.7 kg/m2 28.7 k g/m2 [facility] ([facility]) [place] body weight 172 [lb_av] 172 [lb_av] MEDEN T ([facility]) Systolic blood pressure 130 mm[Hg] 130 mm[Hg] [facility] Oxygen saturation in Arterial blood by Pulse oximetry 96 % 96 % [facility] Diastolic blood pressure 78 mm[Hg] 78 mm[Hg] [facility] Heart rate 71 /min 71 /min [facility] Body height 180.3 cm 180.3 cm [facility] Body weight 96.616 kg 96.616 kg [facility] Body mass index (BMI) [Ratio] 29.71 kg/m2 29.71 kg/m2 [facility] Body weight 208 [lb_av] 208 [lb_av] eCW1 ([facility]) Body height [in_i] eCW1 ([facility]) Body mass index (BMI) [Ratio] 29.01 kg/m2 29.01 kg/m2 W1 ([facility]) Heart rate 86 /min 86 /min eCW1 ([facility]) Respiratory rate 20 /min 20 /min eCW1 ([facility]) Body temperature 97.3 [degF] 97.3 [degF] eCW1 ( [facility]) Systolic blood pressure 130 mm[Hg] 130 mm[Hg] e CW1 ([facility]) Diastolic blood pressure 80 mm[Hg] 80 mm[Hg] eCW1 ([facility]) Heart rate 84 /min 84 /min [facility] Systolic blood pressure 126 mm[Hg] 126 mm[Hg] [facility] Diastolic blood pressure 76 mm[Hg] 76 mm[Hg] [facility] Body height 180.3 cm 180.3 cm [facility] Body weight 92.08 kg 92.08 kg [facility] Body mass index (BMI) [Ratio] 28.31 kg/m2 28.31 kg/m2 [facility] Oxygen saturation in Arterial blood by Pulse oximetry 96 % 96 % [facility] Systolic blood pressure 141 mm[Hg] 141 mm[Hg] [facility] Diastolic blood pressure 71 mm[Hg] 71 mm[Hg] [facility] Heart rate 89 /min 89 /min [facility] Body temperature 36.94 Ellie 36.94 [facility] Respiratory rate 18 /min 18 /min [facility] Oxygen saturation in Arterial blood by Pulse oximetry 97 % 97 % [facility] Body weight 98 kg 98 kg [facility] Body mass index (BMI) [Ratio] 30.13 kg/m2 30.13 kg/m2 [facility] Body height 180.3 cm 180.3 cm [facility] Systolic blood pressure 136 mm[Hg] 136 mm[Hg] [facility] Diastolic blood pressure 69 mm[Hg] 69 mm[Hg] [facility] Heart rate 70 /min 70 /min [facility] Body height 180.3 cm 180.3 cm [facility] Body weight 97.569 kg 97.569 kg [facility] Body mass index (BMI) [Ratio] 30.00 kg/m2 30.00 kg/m2 [facility] Oxygen saturation in Arterial blood by Pulse oximetry 97 % 97 % [facility] Systolic blood pressure 152 mm[Hg] 152 mm[Hg] [facility] Oxygen saturation in Arterial blood by Pulse oximetry 95 % 95 % [facility] Diastolic blood pressure 78 mm[Hg] 78 mm[Hg] [facility] Heart rate 88 /min 88 /min [facility] Body height 177.8 cm 177.8 cm [facility] Body weight 97.523 kg 97.523 kg [facility] Body mass index (BMI) [Ratio] 30.85 kg/m2 30.85 kg/m2 [facility] Body weight 211.0 [lb_av] 211.0 [lb_av] eCW1 ([facility]) Body height [in_i] eCW1 ([facility]) Body mass index (BMI) [Ratio] 29.43 kg/m2 29.43 kg/m2 [facility] Hospital1 ([facility]) Heart rate 99 /min 99 /min W1 ([facility]) Respiratory rate 20 /min 20 /min W1 ([facility]) Body temperature 98.1 [degF] 98.1 [degF] eCW1 ( [facility]) Systolic blood pressure 122 mm[Hg] 122 mm[Hg] e CW1 ([facility]) Diastolic blood pressure 68 mm[Hg] 68 mm[Hg] eCW1 ([facility]) [place] body weight 172 [lb_av] 172 [lb_av] MEDEN T ([facility], ) Systolic blood pressure 151 mm[Hg] 151 mm[Hg] M EDENT ([facility], ) Diastolic blood pressure 73 mm[Hg] 73 mm[Hg] MEDENT ([facility], ) Body height 71 [in_i] 71 [in_i] MEDENT ([facility], ) 5'11" Body weight 214.00 [lb_av] 214.00 [lb_av] MEDEN T ([facility]) Body mass index (BMI) [Ratio] 29.8 kg/m2 29.8 k g/m2 MEDENT ([facility]) Body weight 97.070 kg 97.070 kg [facility] ([facility]) Body surface area Derived from formula 2.17 m2 2.17 m2 [facility] ([facility]) Heart rate 75 /min 75 /min [facility] Body height 180.3 cm 180.3 cm [facility] Body weight 99.338 kg 99.338 kg [facility] Body mass index (BMI) [Ratio] 30.54 kg/m2 30.54 kg/m2 [facility] Oxygen saturation in Arterial blood by Pulse oximetry 96 % 96 % [facility] Systolic blood pressure 130 mm[Hg] 130 mm[Hg] [facility] Diastolic blood pressure 66 mm[Hg] 66 mm[Hg] [facility] Systolic blood pressure 137 mm[Hg] 137 mm[Hg] [facility] Diastolic blood pressure 69 mm[Hg] 69 mm[Hg] [facility] Heart rate 86 /min 86 /min [facility] Body temperature 36.5 Ellie 36.5 Ellie [facility] Respiratory rate 16 /min 16 /min [facility] Oxygen saturation in Arterial blood by Pulse oximetry 98 % 98 % [facility] Body height 180.3 cm 180.3 cm [facility] Body weight 94.3 kg 94.3 kg [facility] Body mass index (BMI) [Ratio] 29.00 kg/m2 29.00 kg/m2 [facility] Body weight 213 [lb_av] 213 [lb_av] eCW1 ([facility]) Body height [in_i] eCW1 ([facility]) Body mass index (BMI) [Ratio] 29.70 kg/m2 29.70 kg/m2 eCW1 ([facility]) Heart rate 97 /min 97 /min eCW1 ([facility]) Respiratory rate 18 /min 18 /min eCW1 ([facility]) Body temperature 98.0 [degF] 98.0 [degF] eCW1 ( [facility]) Systolic blood pressure 128 mm[Hg] 128 mm[Hg] e CW1 ([facility]) Diastolic blood pressure 78 mm[Hg] 78 mm[Hg] eCW1 ([facility]) Systolic blood pressure 118 mm[Hg] 118 mm[Hg] [facility] Diastolic blood pressure 62 mm[Hg] 62 mm[Hg] [facility] Heart rate 89 /min 89 /min [facility] Body height 180.3 cm 180.3 cm [facility] Body weight 96.616 kg 96.616 kg [facility] Body mass index (BMI) [Ratio] 29.71 kg/m2 29.71 kg/m2 [facility] Oxygen saturation in Arterial blood by Pulse oximetry 96 % 96 % [facility] Body weight 211.4 [lb_av] 211.4 [lb_av] W1 ([facility]) Body height [in_i] W1 ([facility]) Body mass index (BMI) [Ratio] 29.48 kg/m2 29.48 kg/m2 W1 ([facility]) Heart rate 105 /min 105 /min eCW1 ([facility]) Respiratory rate 18 /min 18 /min eCW1 ([facility]) Body temperature 97.7 [degF] 97.7 [degF] eCW1 ( [facility]) Systolic blood pressure 130 mm[Hg] 130 mm[Hg] e CW1 ([facility]) Diastolic blood pressure 70 mm[Hg] 70 mm[Hg] eCW1 ([facility]) Body weight 214.2 [lb_av] 214.2 [lb_av] eCW1 ([facility]) Body height [in_i] eCW1 ([facility]) Body mass index (BMI) [Ratio] 29.87 kg/m2 29.87 kg/m2 eCW1 ([facility]) Heart rate 103 /min 103 /min eCW1 ([facility]) Respiratory rate 18 /min 18 /min eCW1 ([facility]) Body temperature 98.6 [degF] 98.6 [degF] eCW1 ( [facility]) Systolic blood pressure 150 mm[Hg] 150 mm[Hg] e CW1 ([facility]) Diastolic blood pressure 70 mm[Hg] 70 mm[Hg] eCW1 ([facility]) [place] body weight 172 [lb_av] 172 [lb_av] MEDEN T ([facility], ) Body weight 96.674 kg 96.674 kg MEDENT ([facility]) Body surface area Derived from formula 2.17 m2 2.17 m2 [facility] ([facility]) Systolic blood pressure 136 mm[Hg] 136 mm[Hg] M EDENT ([facility]) L arm 133/77 Diastolic blood pressure 82 mm[Hg] 82 mm[Hg] [facility] ([facility]) L arm 133/77 Body height 71 [in_i] 71 [in_i] [facility] ([facility]) 5'11" Body weight 213.12 [lb_av] 213.12 [lb_av] MEDEN T ([facility]) Body mass index (BMI) [Ratio] 29.7 kg/m2 29.7 k g/m2 MEDENT ([facility]) Body weight 213.0 [lb_av] 213.0 [lb_av] eCW1 ([facility]) Body height [in_i] eCW1 ([facility]) Body mass index (BMI) [Ratio] 29.70 kg/m2 29.70 kg/m2 W1 ([facility]) Heart rate 97 /min 97 /min eCW1 ([facility]) Respiratory rate 18 /min 18 /min eCW1 ([facility]) Body temperature 97.4 [degF] 97.4 [degF] eCW1 ( [facility]) Systolic blood pressure 162 mm[Hg] 162 mm[Hg] e CW1 ([facility]) Diastolic blood pressure 78 mm[Hg] 78 mm[Hg] eCW1 ([facility]) Patient Treatment Plan of Care Planned Activity Planned Date Details Description Data Source (s) atorvastatin 80 MG Oral Tablet 10/08/2020 12:00:00 AM EDT eCW1 ([facility]) Nortriptyline 25 MG Oral Capsule 10/08/2020 12:00:00 AM EDT eCW1 ([facility]) atorvastatin 80 MG Oral Tablet 10/08/2020 12:00:00 AM EDT eCW1 ([facility]) Nortriptyline 25 MG Oral Capsule 10/08/2020 12:00:00 AM EDT eCW1 ([facility]) atorvastatin 80 MG Oral Tablet 10/08/2020 12:00:00 AM EDT eCW1 ([facility]) Nortriptyline 25 MG Oral Capsule 10/08/2020 12:00:00 AM EDT eCW1 ([facility]) atorvastatin 80 MG Oral Tablet 10/08/2020 12:00:00 AM EDT eCW1 ([facility]) Nortriptyline 25 MG Oral Capsule 10/08/2020 12:00:00 AM EDT eCW1 ([facility]) atorvastatin 40 MG Oral Tablet 08/29/2020 12:00:00 AM EDT [facility] clopidogrel 75 MG Oral Tablet 08/24/2020 12:00:00 AM EDT [facility] Acetaminophen 325 MG Oral Tablet 08/06/2020 12:00:00 AM EDT eCW1 ([facility]) Acetaminophen 325 MG Oral Tablet 08/06/2020 12:00:00 AM EDT eCW1 ([facility]) Acetaminophen 325 MG Oral Tablet 08/06/2020 12:00:00 AM EDT eCW1 ([facility]) Ascorbic Acid 500 MG Oral Tablet 05/07/2020 12:00:00 AM EDT [facility] Daily Izabela (THERAGRAN) per tablet 05/07/2020 12:00:00 AM EDT [facility] Docusate Sodium 100 MG Oral Capsule 05/07/2020 12:00:00 AM EDT [facility] Folic Acid 1 MG Oral Tablet 05/07/2020 12:00:00 AM EDT [facility] Furosemide 40 MG Oral Tablet 05/07/2020 12:00:00 AM EDT [facility] atorvastatin 40 MG Oral Tablet 05/07/2020 12:00:00 AM EDT [facility] Acetaminophen 325 MG / Oxycodone Hydrochloride 5 MG Or al Tablet 05/06/2020 12:00:00 AM EDT [facility] ferrous gluconate 324 MG Oral Tablet 05/06/2020 12:00:00 AM EDT [facility] Metoprolol Tartrate 25 MG Oral Tablet 05/06/2020 12:00:00 AM EDT [facility] potassium chloride SA (K-DUR,KLOR-CON) 20 MEQ tablet 021 12:00:00 AM EDT [facility] Diclofenac Sodium 0.01 MG/MG Topical Gel 04/13/2020 12:00:00 AM EST [facility] Lisinopril 40 MG Oral Tablet 02/26/2020 12:00:00 AM EST [facility] Chlorthalidone 25 MG Oral Tablet 02/26/2020 12:00:00 AM EST [facility] Lisinopril 40 MG Oral Tablet 01/18/2020 12:00:00 AM EST [facility] Chlorthalidone 25 MG Oral Tablet 01/18/2020 12:00:00 AM EST [facility] Citalopram 40 MG Oral Tablet 01/18/2020 12:00:00 AM EST [facility] Sucralfate 1000 MG Oral Tablet 01/18/2020 12:00:00 AM EST [facility] Tamsulosin hydrochloride 0.4 MG Oral Capsule 01/18/2020 12:00:00 AM EST [facility] Sucralfate 1000 MG Oral Tablet [Carafate] 01/17/2020 12:00:00 AM ES T eCW1 ([facility]) Sucralfate 1000 MG Oral Tablet [Carafate] 01/17/2020 12:00:00 AM ES T eCW1 ([facility]) Sucralfate 1000 MG Oral Tablet [Carafate] 01/17/2020 12:00:00 AM ES T eCW1 ([facility]) Sucralfate 1000 MG Oral Tablet [Carafate] 01/17/2020 12:00:00 AM ES T eCW1 ([facility]) Mirtazapine 7.5 MG Oral Tablet 01/16/2020 12:00:00 AM EST eCW1 ([facility]) Mirtazapine 7.5 MG Oral Tablet 01/16/2020 12:00:00 AM EST [facility] Mirtazapine 7.5 MG Oral Tablet 01/16/2020 12:00:00 AM EST eCW1 ([facility]) Mirtazapine 7.5 MG Oral Tablet 01/16/2020 12:00:00 AM EST eCW1 ([facility]) Mirtazapine 7.5 MG Oral Tablet 01/16/2020 12:00:00 AM EST eCW1 ([facility]) atorvastatin 40 MG Oral Tablet 12/09/2019 12:00:00 AM EDT [facility] Tamsulosin hydrochloride 0.4 MG Oral Capsule [Flomax] 12/09/2019 12:00:00 AM EDT eCW1 ([facility]) Tamsulosin hydrochloride 0.4 MG Oral Capsule [Flomax] 12/09/2019 12:00:00 AM EDT eCW1 ([facility]) Nortriptyline 25 MG Oral Capsule 12/09/2019 12:00:00 AM EDT [facility] Tamsulosin hydrochloride 0.4 MG Oral Capsule [Flomax] 12/09/2019 12:00:00 AM EDT eCW1 ([facility]) atorvastatin 80 MG Oral Tablet 10/18/2019 12:00:00 AM EDT [facility] Lidocaine Hydrochloride 40 MG/ML Topical Cream 02/04/2018 12:00:00 AM EST [facility] Multiple Vitamin tablet 02/04/2018 12:00:00 AM EST [facility] clopidogrel 75 MG Oral Tablet 01/30/2015 12:00:00 AM EST [facility] Acetaminophen 325 MG / Hydrocodone Bitartrate 10 MG Or al Tablet 01/30/2015 12:00:00 AM [facility]
[2020-12-12 18:46] LABS: ALBUMIN 3.9 GM/DL (3.2-5.2); ALT/SGPT 42 U/L (12-78); BILIRUBIN,TOTAL 0.4 MG/DL (0.2-1.0); BLOOD UREA NITROGEN 9 MG/DL (7-18); CALCIUM LEVEL 9.5 MG/DL (8.8-10.2); CARBON DIOXIDE LEVEL 24 MEQ/L (21-32); CHLORIDE LEVEL 94 MEQ/L (98-107); CREATININE FOR GFR 0.76 MG/DL (0.70-1.30); GLOMERULAR FILTRATION RATE > 60.0 (>49); GLUCOSE, FASTING 74 MG/DL (70-100); POTASSIUM SERUM 3.4 MEQ/L (3.5-5.1); SODIUM LEVEL 128 MEQ/L (136-145); TOTAL PROTEIN 7.2 GM/DL (6.4-8.2)
[2020-12-12] MEDS: THIAMINE 100 MG TAB PO SCH (21:00)
--- NOTE | 2020-12-12 22:39 | REPVR ---
PROCEDURE INFORMATION: Exam: XR Chest Exam date and time: 12/12/20 (9:22pm) Age: 60 years old Clinical indication: Syncope, cough, leukocytosis TECHNIQUE: Imaging protocol: Portable CXR Views: 1 view COMPARISON: Portable CXR of 04/05/20 FINDINGS: Comparison is made with a portable CXR done on 04/05/20. Stable heart size. No significant vascular congestion. Elevation of the right hemidiaphragm. S/P lower cervical spine fusion surgery. No focal infiltrates. No pleural effusions. No pneumothorax. IMPRESSION: No acute findings. The lung lagunas remain clear. Electronically signed by: Carli Mims On 12/12/2020 22:38:24 PM
--- NOTE | 2020-12-12 22:50 | REPVR ---
PROCEDURE INFORMATION: Exam: CT Head without Contrast Exam date and time: 12/12/20 (9:37pm) Age: 60 years old Clinical indication: Syncope and collapse TECHNIQUE: Imaging protocol: Computed tomography of the head without contrast. Radiation optimization: All CT scans at this facility use at least one of these dose optimization techniques: automated exposure control; mA and/or kV adjustment per patient size (includes targeted exams where dose is matched to clinical indication); or iterative reconstruction. COMPARISON: CT Head of 01/26/20 FINDINGS: Brain: Age-appropriate atrophic changes. No acute hemorrhage. No mass effect. Cerebral ventricles: No ventriculomegaly. Paranasal sinuses: Visualized sinuses are unremarkable. No air-fluid levels. Mastoid air cells: Visualized mastoid air cells are well aerated. Bones/joints: Unremarkable. No acute fracture. Soft tissues: Unremarkable. IMPRESSION: No acute intracranial pathology. The brain had a similar appearance in 2019. Electronically signed by: Carli Mims On 12/12/2020 22:49:33 PM
--- NOTE | 2020-12-12 22:59 | REPVR ---
PROCEDURE INFORMATION: Exam: CT Cervical Spine without Contrast Exam date and time: 12/12/20 (9:37pm) Age: 60 years old Clinical indication: Fall. Blunt trauma. Syncope. TECHNIQUE: Imaging protocol: Computed tomography images of the cervical spine without contrast Radiation optimization: All CT scans at this facility use at least one of these dose optimization techniques: automated exposure control; mA and/or kV adjustment per patient size (includes targeted exams where dose is matched to clinical indication); or iterative reconstruction. COMPARISON: Cervical spine plain films of 09/02/19 FINDINGS: Vertebrae: No acute fracture. Satisfactory alignment. S/P anterior fusion surgery at C6-C7. Discs/Spinal canal: Multilevel degenerative changes. Prominent anterior osteophytes at multiple levels. Bilateral facet arthropathy changes. Soft tissues: Unremarkable. Lungs: Lung apices are normal. IMPRESSION: No acute traumatic findings. Electronically signed by: Carli Mims On 12/12/2020 22:59:12 PM
[2020-12-12] MEDS ORDERED: ATOR80TA59 PO (23:33)
[2020-12-12] MEDS ORDERED: BACL1TAB9 PO (23:33)
[2020-12-12] MEDS ORDERED: VITMTA PO (23:38)
[2020-12-12] MEDS ORDERED: NORT10CA2 PO (23:38)
[2020-12-12] MEDS ORDERED: LISI40TA4 PO (23:38)
[2020-12-12] MEDS ORDERED: NORT25CA2 PO (23:38)
[2020-12-12] MEDS ORDERED: FOLI1TAB11 PO (23:38)
[2020-12-12] MEDS ORDERED: FERR32TA PO (23:38)
[2020-12-12] MEDS ORDERED: METO25TA4 PO (23:38)
[2020-12-12] MEDS ORDERED: HOME MED LIST COMPLETE! XX SCH (23:40)
[2020-12-13] VITALS (10 sets, daily range): BP systolic 84–161; BP diastolic 62–93
[2020-12-13] MEDS ORDERED: NS 1,000 ML IV ONE (00:05)
[2020-12-13] MEDS ORDERED: LORazepam 2 MG TAB PO PRN (00:05)
--- OUTSIDE RECORDS SUMMARY | 2020-12-13 00:05 | CCD ---
Author Author [facility] Organization [facility] Address Unknown Phone Unavailable Care Team Providers Care Flame Planer Name Role Phone Elke ADRIAN MD Unavailable [...] Tyson MD Unavailable Unavailable Detor, M Isac SPECIAL PROGRAMS DIRECTOR Unavailable Unavailable Detor, M Isac SPECIAL PROGRAMS DIRECTOR Unavailable Unavailable Detor, M Isac SPECIAL PROGRAMS DIRECTOR Unavailable Unavailable Detor, M Isac SPECIAL PROGRAMS DIRECTOR Unavailable Unavailable Detor, M Isac SPECIAL PROGRAMS DIRECTOR Unavailable Unavailable Detor, M Isac SPECIAL PROGRAMS DIRECTOR Unavailable Unavailable Detor, M Isac SPECIAL PROGRAMS DIRECTOR Unavailable Unavailable Detor, M Isac SPECIAL PROGRAMS DIRECTOR Unavailable Unavailable Detor, M Isac SPECIAL PROGRAMS DIRECTOR Unavailable Unavailable Detor, M Isac SPECIAL PROGRAMS DIRECTOR Unavailable Unavailable Detor, M Isac SPECIAL PROGRAMS DIRECTOR Unavailable Unavailable Detor, M Isac SPECIAL PROGRAMS DIRECTOR Unavailable Unavailable Detor, M Isac SPECIAL PROGRAMS DIRECTOR Unavailable Unavailable Detor, M Isac SPECIAL PROGRAMS DIRECTOR Unavailable Unavailable Detor, M Isac SPECIAL PROGRAMS DIRECTOR Unavailable Unavailable Detor, M Isac SPECIAL PROGRAMS DIRECTOR Unavailable Unavailable Detor, M Isca SPECIAL PROGRAMS DIRECTOR Unavailable Unavailable Detor, M Isac SPECIAL PROGRAMS DIRECTOR Unavailable Unavailable Detor, M Isac SPECIAL PROGRAMS DIRECTOR Unavailable Unavailable Detor, M Isac SPECIAL PROGRAMS DIRECTOR Unavailable Unavailable Detor, M Isac SPECIAL PROGRAMS DIRECTOR Unavailable Unavailable Detor, M Isac SPECIAL PROGRAMS DIRECTOR Unavailable Unavailable Detor, M Isac SPECIAL PROGRAMS DIRECTOR Unavailable Unavailable Detor, M Isac SPECIAL PROGRAMS DIRECTOR Unavailable Unavailable Detor, M Isac SPECIAL PROGRAMS DIRECTOR Unavailable Unavailable Detor, M Isac SPECIAL PROGRAMS DIRECTOR Unavailable Unavailable Detor, M Isac SPECIAL PROGRAMS DIRECTOR Unavailable Unavailable Detor, M Isac SPECIAL PROGRAMS DIRECTOR Unavailable Unavailable Detor, M Isac SPECIAL PROGRAMS DIRECTOR Unavailable Unavailable Detor, M Isac SPECIAL PROGRAMS DIRECTOR Unavailable Unavailable Detor, M Isac SPECIAL PROGRAMS DIRECTOR Unavailable Unavailable Detor, M Isac SPECIAL PROGRAMS DIRECTOR Unavailable Unavailable Detor, M Isac SPECIAL PROGRAMS DIRECTOR Unavailable Unavailable Detor, M Isac SPECIAL PROGRAMS DIRECTOR Unavailable Unavailable Detor, M Isac SPECIAL PROGRAMS DIRECTOR Unavailable Unavailable Detor, M Isac SPECIAL PROGRAMS DIRECTOR Unavailable Unavailable Detor, M Isac SPECIAL PROGRAMS DIRECTOR Unavailable Unavailable Austin, V ZARINA PA-C Unavailable Unavailable Austin, V ZARINA PA-C Unavailable Unavailable Otto, V ZARINA PA-C Unavailable Unavailable Otto, V ZARINA PA-C Unavailable Unavailable Austin, V ZARINA PA-C Unavailable Unavailable Otto, V ZARINA PA-C Unavailable Unavailable Austin, V ZARINA PA-C Unavailable Unavailable Austin, V ZARINA PA-C Unavailable Unavailable Austin, V ZARINA PA-C Unavailable Unavailable Austin, V ZARINA PA-C Unavailable Unavailable Austin, V ZARINA PA-C Unavailable Unavailable Austin, V ZARINA PA-C Unavailable Unavailable Otto, V ZARINA PA-C Unavailable Unavailable Austin, V ZARINA PA-C Unavailable Unavailable Mello, L [...] Marianna RPA Unavailable Unavailable Ghassan, L Jo-Ann EMERGENCY MANAGER Unavailable Unavailable Ghassan, L Jo-Ann EMERGENCY MANAGER Unavailable Unavailable Ghassan, L Jo-Ann EMERGENCY MANAGER Unavailable Unavailable Ghassan, L Jo-Ann EMERGENCY MANAGER Unavailable Unavailable Ghassan, L Jo-Ann EMERGENCY MANAGER Unavailable Unavailable Ghassan, L Jo-Ann EMERGENCY MANAGER Unavailable Unavailable Ghassan, L Jo-Ann EMERGENCY MANAGER Unavailable Unavailable Ghassan, L Jo-Ann EMERGENCY MANAGER Unavailable Unavailable Ghassan, L Jo-Ann EMERGENCY MANAGER Unavailable Unavailable Ghassan, L Jo-Ann EMERGENCY MANAGER Unavailable Unavailable Ghassan, L Jo-Ann EMERGENCY MANAGER Unavailable Unavailable Ghassan, L Jo-Ann EMERGENCY MANAGER Unavailable Unavailable Ghassan, L Jo-Ann EMERGENCY MANAGER Unavailable Unavailable Ghassan, L Jo-Ann EMERGENCY MANAGER Unavailable Unavailable Ghassan, L Jo-Ann EMERGENCY MANAGER Unavailable Unavailable Ghassan, L Jo-Ann EMERGENCY MANAGER Unavailable Unavailable Ghassan, L Jo-Ann EMERGENCY MANAGER Unavailable Unavailable Ghassan, L Jo-Ann EMERGENCY MANAGER Unavailable Unavailable Oneil Genao MD Unavailable Unavailable [...] is protected by Article 27-F of the [facility] Public Health law. If you continue you may have access to information: Regarding HIV / AIDS; Provided by facilities licensed or operated by the [facility] Office of Mental Health; or Provided by the [facility] Office for People With Developmental Disabilities. If such information is present, then the following [facility] mandated warning applies: This information has been [...] law may result in a fine or snf sentence or both. A general authorization for the release of medical or other information is NOT sufficient authorization for further disc losure. Family History Family Member Name Family Member Gender Family Member Status Date o f Status Description Data Source(s) Unknown Male Problem [facility] ([facility] Unknown Unknown Problem [facility] ([facility], ) maternal grandfather/father Unknown Unknown Problem [facility] ([facility] Encounters Encounter Providers Location Date Indications Data Source(s ) Unknown [address] [facility] [id number] 11/23/2020 12:00:00 AM EDT eCW1 (Critical access hospital) Unknown [address] [facility] [id number] 11/23/2020 12:00:00 AM EDT eCW1 (Critical access hospital) Outpatient Attender: ROVERTO Alejandra/Deloris/Magdy/Machelle martinez 10/22/2020 02:00:00 PM EDT [facility] ([facility], ) Outpatient [address] [facility] [id number] 10/08/2020 12:00:00 AM EDT eCW1 (Critical access hospital) Unknown [address] [facility] [place] [address] 10/08/2020 12:00:00 AM EDT eCW1 (Critical access hospital) Unknown [address] [facility] [place] [address] 09/19/2020 12:00:00 AM EDT eCW1 (Critical access hospital) Outpatient Attender: ZARINA CHANG 10/2020 12:00:00 AM EDT - 09/17/2020 01:01:54 PM EDT [facility] Unknown [address] [facility] [place] [address] 08/24/2020 12:00:00 AM EDT eCW1 (Critical access hospital) Outpatient [address] [facility] [place] [address] 08/06/2020 12:00:00 AM EDT eCW1 (Critical access hospital) Outpatient Attender: Marbella Alejandra/Deloris/Magdy/ Abdiel 06/21/2020 10:45:00 AM EDT [facility] ([facility]) Outpatient Attender: ZARINA VELAZQUEZ.PARK 07/2020 10:02:28 AM EDT [facility] Unknown [address] [facility] [place] [address] 06/14/2020 12:00:00 AM EDT eCW1 (Critical access hospital) Unknown [address] [facility] [place] [address] 05/31/2020 12:00:00 AM EDT eCW1 (Critical access hospital) Office Visit, Est Pt., Level 4 [address] [place] [address] 05/30/2020 12:00:00 AM EDT eCW1 ([facility]) Outpatient Attender: ZARINA SLOANSJFacundo.PARK 12:00:00 AM EDT [facility] Outpatient Attender: Jo-Ann HIGUERA.TSERING 05/19/19 12:00:00 AM EDT - 05/18/2020 10:52:53 AM EDT [facility] Outpatient Attender: ZARINA MEJIA-SJP.PARK 08/2020 12:00:00 AM EDT - 05/16/2020 12:24:28 PM EDT [facility] Inpatient Admitter: Oneil Genao MDReferrer: VANESSA Dixon ES1-SJ.ANES 05/02/2020 07:53:31 AM EDT [facility] Inpatient Attender: Oneil Genao MDAdmitter: Oneil lee MD [id number] 05/02/2020 05:24:00 AM EDT - 05/06/2020 04:19:00 PM EDT [facility] Patient discharged. Outpatient Attender: Oneil Genao MDReferrer: Oneil lee MD MOB-MOB.PAT 04/27/2020 10:16:49 AM EDT - 04/27/2020 11:35:52 AM EDT [facility] Outpatient Referrer: Oneil Genao MD MOB-MOB.PAT 04/27 09:32:34 AM EDT - 04/27/2020 09:32:40 AM EDT [facility] Outpatient Attender: ZARINA BURGERP.PARK-SJP.PARK 09/2020 12:00:00 AM EST - 04/16/2020 01:40:49 PM EST [facility] Outpatient [address] [facility] [id number] 04/13/2020 12:00:00 AM EST eCW1 (Critical access hospital) Outpatient Attender: TISHA Alejandra/Deloris/Magdy/Cas bansal 04/04/2020 02:00:00 PM EST [facility] ([facility] Outpatient Attender: Oneil Genao MDReferrer: Oneil lee MD ES1-SJ.PL 04/02/2020 12:26:00 PM EST - 04/02/2020 11:59:00 PM EST [facility] Patient discharged. Outpatient Attender: Oneil Genao MDReferrer: Oneil lee MD MOB-MOB.PAT 04/02/2020 10:16:54 AM EST - 04/02/2020 11:35:56 AM EST [facility] Outpatient Referrer: Oneil Genao MD MOB-MOB.PAT 04/02 09:34:30 AM EST - 04/02/2020 09:34:36 AM [facility] Outpatient Attender: ZARINA GUIDRY.PARK-SJP.PARK 05/2020 12:00:00 AM EST - 03/15/2020 10:50:17 AM EST [facility] Outpatient Referrer: Isac MEZA 03/12/2020 03:49:52 [facility] Outpatient Referrer: Isac NAVARROP 03/12/2020 03:07:41 [facility] MOCAM-MOCAM 02/24/2020 03:01:28 PM EST [facility] Outpatient Attender: Marla Marino MDA dmitter: Marla Marino MDReferrer: Loyd Villaseñor MD ES1-SJ.CVAU 02/24/2020 06:14:00 AM EST - 02/24/2020 12:35:00 PM EST [facility] Patient discharged. Outpatient [address] [facility] [id number] 02/20/2020 12:00:00 AM EST eCW1 (Critical access hospital) Unknown [facility] [facility] [address] 02/20/2020 12:00:00 AM EST eCW1 (Critical access hospital) Unknown [address] [facility] [address] 02/20/2020 12:00:00 AM EST eCW1 (Critical access hospital) Unknown [address] [facility] [place] [address] 02/16/2020 12:00:00 AM EST eCW1 (Critical access hospital) Unknown [address] [facility] [id number] 02/14/2020 12:00:00 AM EST eCW1 (Critical access hospital) Outpatient Referrer: Loyd ORTIZPARK-SJP.PARK 05/2020 12:00:00 AM EST - 02/13/2020 12:12:14 PM EST [facility] Unknown [address] [facility] [place] [address] 02/13/2020 12:00:00 AM EST eCW1 ([facility]) Outpatient Attender: Loyd Villaseñor MDReferrer: Callie SLOANSJPetarPARK 02/09/2020 12:00:00 AM EST - 02/09/2020 03:04:06 PM EST [facility] Unknown [address] [facility] [place] [address] 02/06/2020 12:00:00 AM EST [facility] Outpatient [address] [facility] [place] [address] 01/24/2020 12:00:00 AM EST eCW1 ([facility]) Unknown [address] [facility] [place] [address] 01/19/2020 12:00:00 AM EST eCW1 (Critical access hospital) Unknown [address] [facility] [place] [address] 01/19/2020 12:00:00 AM EST eCW1 ([facility]) Unknown [address] [facility] [place] [address] 01/17/2020 12:00:00 AM EST [facility]CW1 ([facility] Outpatient [address] [facility] [place] [address] 01/16/2020 12:00:00 AM EST eCW1 ([facility]) Unknown [address] [facility] [place] [address] 01/03/2020 12:00:00 AM EST eCW1 ([facility]) Outpatient Attender: Marianna Alejandra/Deloris/Magdy/Soy hanley 12/14/2019 09:15:00 AM EST [facility] ([facility] Outpatient [address] [facility] [place] [address] 12/09/2019 12:00:00 AM EDT eCW1 (Critical access hospital) Unknown [address] [facility] [place] [address] 12/09/2019 12:00:00 AM EDT eCW1 (Critical access hospital) Medications Medication Brand Name Start Date Product [...] acti ve Nortriptyline HCl 25 MG eCW1 ([facility]) atorvastatin 80 MG Oral Tablet Atorvastatin Calcium 80 MG Atorvastatin Calcium 80 MG 10/08/2020 12:00:00 AM EDT 1.0 {tablet} activ e Atorvastatin Calcium 80 MG eCW1 ([facility]) Nortriptyline 25 MG Oral Capsule Nortriptyline HCl 25 MG Nortriptyline HCl 25 MG 10/08/2020 12:00:00 AM EDT 1.0 {capsule} acti ve Nortriptyline HCl 25 MG eCW1 ([facility]) Nortriptyline 25 MG Oral Capsule Nortriptyline HCl 25 MG Nortriptyline HCl 25 MG 10/08/2020 12:00:00 AM EDT 1.0 {capsule} acti ve Nortriptyline HCl 25 MG eCW1 ([facility]) Nortriptyline 25 MG Oral Capsule Nortriptyline HCl 25 MG Nortriptyline HCl 25 MG 10/08/2020 12:00:00 AM EDT 1.0 {capsule} acti ve Nortriptyline HCl 25 MG eCW1 ([facility]) 25 mg 10/08/2020 12:00:00 AM EDT capsule [...] activ e Atorvastatin Calcium 80 MG eCW1 ([facility]) 75 mg 10/08/2020 12:00:00 AM EDT tablet 30 TAKE ONE TABLET BY MOUTH EVERY DAY TAKE ONE TABLET BY MOUTH EVERY DAY SOLD: 10/12/2020 [facility] atorvastatin 80 MG Oral Tablet Atorvastatin Calcium 80 MG Atorvastatin Calcium 80 MG 10/08/2020 12:00:00 AM EDT 1.0 {tablet} activ e Atorvastatin Calcium 80 MG eCW1 ([facility]) atorvastatin 80 MG Oral Tablet Atorvastatin Calcium 80 MG Atorvastatin Calcium 80 MG 10/08/2020 12:00:00 AM EDT 1.0 {tablet} activ e Atorvastatin Calcium 80 MG eCW1 ([facility]) 80 mg 09/27/2020 12:00:00 AM EDT tablet 30 TAKE ONE TABLET BY MOUTH EVERY DAY TAKE ONE TABLET BY MOUTH EVERY DAY SOLD: 09/28/2020 [facility] atorvastatin 40 MG Oral Tablet atorvastatin (LIPITOR) 40 MG tablet atorvastatin (LIPITOR) 40 MG tablet 08/29/2020 12:00:00 AM EDT 40 mg Oral aborted Take 40 mg by mouth daily [facility] pantoprazole 40 MG Delayed Release Oral [...] active Take 75 mg by mouth daily [facility] Acetaminophen 325 MG Oral Tablet Acetaminophen 325 MG 2020 12:00:00 AM EDT 1.0 {tablet_as_needed} active A cetaminophen 325 MG eCW1 ([facility]) Acetaminophen 325 MG Oral Tablet Acetaminophen 325 MG 2020 12:00:00 AM EDT 1.0 {tablet_as_needed} active A cetaminophen 325 MG eCW1 ([facility]) Acetaminophen 325 MG Oral Tablet Acetaminophen 325 MG 2020 12:00:00 AM EDT 1.0 {tablet_as_needed} active A cetaminophen 325 MG eCW1 ([facility]) 25 mg 07/31/2020 12:00:00 AM EDT tablet [...] (40 mg total) by mouth every morning [facility] Folic Acid 1 MG Oral Tablet folic acid (FOLVITE) 1 MG tablet folic acid (FOLVITE) 1 MG tablet 05/07/2020 12:00:00 AM EDT 1 mg Oral active Take 1 tablet (1 mg total) by mouth daily [facility] Docusate Sodium 100 MG Oral Capsule docusate sodium (, DSS,) 100 MG CAPS docusate sodium (,DSS,) 100 MG CAPS 05/07/2020 12:00:00 AM EDT 100 mg Oral active Take 1 capsule (100 mg total) by mouth zack [facility] Daily Izabela (THERAGRAN) per tablet [id number] 05/07/2020 12:00:00 AM EDT 1 {tbl} Oral active Take 1 tablet by mouth zack [facility] Ascorbic Acid 500 MG Oral Tablet ascorbic acid (VITAMI N C) 500 MG tablet ascorbic acid (VITAMIN C) 500 MG tablet 05/07/2020 12:00:00 AM EDT 500 mg Oral active Take 1 tablet (500 m g total) by mouth daily [facility] atorvastatin 40 MG Oral Tablet atorvastatin (LIPITOR) 40 MG tablet atorvastatin (LIPITOR) 40 MG tablet 05/07/2020 12:00:00 AM EDT 40 mg Oral aborted Take 40 mg by mouth daily [facility] potassium chloride SA (K-DUR,KLOR-CON) 20 MEQ tablet [id number] 05/06/2020 12:00:00 AM EDT 20 meq Oral active Take 1 tablet (20 mEq total) by mouth daily [facility] Acetaminophen 325 MG / Oxycodone Hydroch loride 5 MG Oral Tablet oxyCODONE- acetaminophen (PERCOCET) 5-325 MG per tablet oxyCODONE-acetaminophen (PERCOCET) 5-325 MG per tablet 05/06/2020 12:00:00 AM EDT 1 {tbl} Oral active Take 1 tablet by mouth every 6 (six) hours as needed for pain Max Daily Amount: 4 tablets [facility] Metoprolol Tartrate 25 MG Oral Tablet me toprolol tartrate (LOPRESSOR) 25 MG tablet metoprolol tartrate (LOPRESSOR) 25 MG tablet 05/06/2020 12:0 0:00 AM EDT 25 mg Oral active Take 1 tablet (2 5 mg total) by mouth 2 (two) times a day [facility] 324 mg (38 mg iron) 05/06/2020 [...] 2 (two) times a day before meals [facility] 25 mg 05/06/2020 12:00:00 AM EDT [...] morning, First dose on 05/05/20 at 0900 [facility] Medication administered onsite Bisacodyl 10 MG Rectal Suppository bisacodyl (DULCOLAX ) suppository 10 mg bisacodyl (DULCOLAX) suppository 10 mg 05/05/2020 09:00:00 AM EDT 10 mg Rectal active 10 mg, Rectal, Daily PRN, constipation, if polyethylene glycol is not effective, Starting Thu05/05/20 at 0900
hold for loose stools
[facility] Medication administered onsite furosemide (LASIX) injection 40 mg [id number] 05/04/2020 10:00:00 AM EDT 40 mg Intravenous completed 40 mg, I ntravenous, Once, Thu05/04/20 at 1000, For 1 dose [facility] Medication administered onsite Daily Izabela (THERAGRAN) 1 tablet 31287-265-46 05/04/2020 09:00:00 AM EDT 1 {tbl} Oral active 1 tablet, Oral, Daily, First dose on Thu05/04/20 at 0900 [facility] Medication administered onsite POLYETHYLENE GLYCOL 3350 142 MG/ML Oral Solution polyethylene glycol (GLYCOLAX) packet 17 g polyethylene glycol (GLYCOLAX) packet 17 g 05/04/2020 09:00:00 AM EDT 17 g Oral active 17 g, Or al, Daily, First dose on Thu05/04/20 at 0900
Starting 2nd POD, give every day until result
[facility] Medication administered onsite ferrous gluconate 324 MG Oral Tablet ferrous gluconate (FERGON) tablet 324 mg ferrous gluconate (FERGON) tablet 324 mg 05/04/2020 07:00:00 AM EDT 324 mg Oral active 324 mg, Oral, 2 times daily before meals, First dose on Thu05/04/20 at 0700
Start POD #2
[facility] Medication administered onsite 1 ML Ketorolac Tromethamine 30 MG/ML [facility] ketorolac (TORADOL) injection 30 mg ketorolac (TORADOL) injection 30 mg 05/03/2020 11:41:40 PM EDT 30 mg Intravenous completed 30 mg, Intrav enous, Every 6 hours PRN, severe pain (7-10), Starting Milena 05/03/20 at 2341, For 3 doses [facility] Medication administered onsite normal saline flush 0.9 % injection 3 mL 18455-480-09 05/03/2020 10:00:00 PM EDT 3 mL Intravenous active 3 mL , Intravenous, PROTOCOL, First dose on Thu05/03/20 at 2200
May convert IV to a saline lock when taking in good p.o. intake (minimally 600 mL).
[facility] Medication administered onsite pantoprazole 40 MG Delayed Release Oral Tablet pantoprazole (PROTONIX) EC tablet 40 mg pantoprazole (PROTONIX) EC tablet 40 mg 05/03/2020 09:00:00 PM E DT 40 mg Oral active Gastroesophageal Reflux Diseas e 40 mg, Oral, 2 times daily, Indications: Gastroesophageal Reflux Disease, First dose on Thu05/03/20 at 2100
Start after extubation Do Not Crush
[facility] Gastroesophageal Reflux Disease Medication administered onsite 50 ML Magnesium Sulfate 40 MG/ML Injecti on magnesium sulfate 2 g in sterile diluent magnesium sulfate 2 g in sterile diluent 05/03/2020 06:07:01 PM EDT 2 g Intravenous active 2 g, Int ravenous, at 50 mL/hr, As needed, serum Mg 1.9-2.1, Starting [facility] 05/03/20 at 1807
Give 2 grams magnesium sulfate IV x 1 run over 1 hour. For serum creatinine (SCR) 0.8 to 1.5
[facility] Medication administered onsite potassium chloride SA (K-DUR,KLOR-CON) CR tablet 20 mEq 6203 705/03/2020 06:07:01 PM EDT 20 meq Oral active 20 mEq, Oral, As needed, Serum K+ 3.9-4.1, Starting Milena 05/03/20 at 1807
For serum creatinine (SCR) 0.8 to 1.5
[facility] Medication administered onsite potassium chloride SA (K-DUR,KLOR-CON) CR tablet 40 mEq 6203 705/03/2020 06:07:01 PM EDT 40 meq Oral active 40 mEq, Oral, As needed, Serum K+ 3.5-3.8, Starting Milena 05/03/20 at 1807
For serum creatinine (SCR) 0.8 to 1.5
[facility] Medication administered onsite ondansetron (ZOFRAN) injection 4 mg [id number] 05/03/2020 06:07:0 1 PM EDT 4 mg Intravenous active 4 mg, In travenous, Every 6 hours PRN, nausea, vomiting, Starting Milena 05/03/20 at 1807
If no response in 15-30 minutes, give metoclopramide 10 mg IV x 1 then q6h prn N/V.
[facility] Medication administered onsite Nitroglycerin 0.4 MG Sublingual Tablet n itroglycerin (NITROSTAT) SL tablet 0.4 mg nitroglycerin (NITROSTAT) SL tablet 0.4 mg 05/03/2020 06:07:01 P M EDT 0.4 mg Sublingual active 0.4 mg, S ublingual, Every 5 min PRN, chest pain, Starting Milena 05/03/20 at 1807
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 Notify MD/PA/EMERGENCY MANAGER.
[facility] Medication administered onsite 50 ML Magnesium [...] For serum creatinine (SCR) 0.8 to 1.5
[facility] Medication administered onsite Albuterol 0.83 MG/ML Inhalant Solution a lbuterol (PROVENTIL) nebulizer solution 2.5 mg albuterol (PROVENTIL) nebulizer solution 2.5 mg 2020 06:07:00 PM EDT 2.5 mg active 2.5 mg, Nebulization, RT every 2 hours as needed, wheezing, shortness of breath, Starting Milena 05/03/20 at 1807 [facility] Medication administered onsite Aluminum Hydroxide 64 MG/ML Oral Suspens ion aluminum hydroxide (ALTERNAGEL) suspension 15 mL aluminum hydroxide (ALTERNAGEL) suspension 15 mL 05/03 06:07:00 PM EDT 15 mL Oral active 15 mL, Oral, Every 4 hours PRN, for indigestion/ gas, Starting Milena 05/03/20 at 1807 [facility] Medication administered onsite furosemide (LASIX) injection 40 mg [id number] 05/03/2020 05:00:00 PM EDT 40 mg Intravenous completed 40 mg, I ntravenous, LOOPBID, First dose on Milena 05/03/20 at 1700, For 1 dose [facility] Medication administered onsite albumin human 5 % bottle 12.5 g [id number] 05/03/2020 04:00:00 PM EDT 12.5 g Intravenous completed Hypotension 12.5 g, Intr avenous, Once, Indications: Hypotension, Milena 05/03/20 at 1600, For 1 dose [facility] Hypotension Medication administered onsite furosemide (LASIX) injection 40 mg [id number] 05/03/2020 01:00:00 PM EDT 40 mg Intravenous completed 40 mg, I ntravenous, Once, Milena 05/03/20 at 1300, For 1 dose [facility] Medication administered onsite lidocaine (ASPERCREME) 4 % 1 patch [id number] 05/03/2020 09:00:00 AM EDT 1 {patch} Transdermal active 1 patch, Transdermal, Administer over 12 Hours, Daily, First dose on Milena 05/03/20 at 0900 [facility] Medication administered onsite Docusate Sodium 100 MG Oral Capsule docusate sodium (C OLACE) capsule 100 mg docusate sodium (COLACE) capsule 100 mg 05/03/2020 09:00:00 AM EDT 100 mg Oral active 100 mg, Oral, Daily, First dose on Milena 05/03/20 at 0900
Give PO/OG. Start first POD
[facility] Medication administered onsite Thiamine 100 MG Oral Tablet thiamine tablet 100 mg thiamine tablet 100 mg 05/03/2020 09:00:00 AM EDT 100 mg Oral active 100 mg, Oral, Daily, First dose on Milena 05/03/20 at 0900 [facility] Medication administered onsite Ascorbic Acid 500 MG Oral Tablet ascorbic acid (VITAMI N C) tablet 500 mg ascorbic acid (VITAMIN C) tablet 500 mg 05/03/2020 09:00:00 AM EDT 500 mg Oral active 500 mg, Oral, Daily, First dose on Milena 05/03/20 at 0900
Give PO/OG. Start first POD.
[facility] Medication administered onsite Folic Acid 1 MG Oral Tablet folic acid (FOLVITE) table t 1 mg folic acid (FOLVITE) tablet 1 mg 05/03/2020 09:00:00 AM EDT 1 mg Oral active 1 mg, Oral, Daily, First dose on Milena 05/03/20 at 0900
Give PO/OG. Start first POD
[facility] Medication administered onsite Aspirin 81 MG Delayed Release Oral Tablet aspirin EC t ablet 81 mg aspirin EC tablet 81 mg 05/03/2020 09:00:00 AM EDT 81 mg Oral activ e 81 mg, Oral, Daily, First dose on Milena 05/03/20 at 0900
Hold for platelet count less than 90,000. If OG tube in place, give non-enteric coated aspirin.
[facility] Medication administered onsite furosemide (LASIX) injection 40 mg [id number] 05/03/2020 07:00:00 AM EDT 40 mg Intravenous completed 40 mg, I ntravenous, Once, Milena 05/03/20 at 0700, For 1 dose [facility] Medication administered onsite 1 ML Ketorolac Tromethamine 15 MG/ML [place] [facility] ketorolac (TORADOL) injection 15 mg ketorolac (TORADOL) injection 15 mg 05/03/2020 06:37:15 AM EDT 15 mg Intravenous aborted 15 mg, Intrav enous, Every 6 hours PRN, severe pain (7-10), Starting Milena 05/03/20 at 0637, For 24 hours [facility] Medication administered onsite 1 ML Lorazepam [...] If treatment is needed prior, notify provider.
[facility] Medication administered onsite heparin (porcine) injection 5,000 Units [id number] 05/04/19 06:00:00 AM EDT 5000 U Subcutaneous active 5,000 Units , Subcutaneous, Every 8 hours (scheduled), First dose on Milena 05/03/20 at 0600
Start first POD. Hold for platelet count less than 90,000, INR greater than or equal to 1.7 if receiving coumadin therapy.
[facility] Medication administered onsite Metoprolol Tartrate 25 MG Oral Tablet me toprolol tartrate (LOPRESSOR) tablet 25 mg metoprolol tartrate (LOPRESSOR) tablet 25 mg 05/03/2020 06:00:00 AM EDT 25 mg Oral active 25 mg, Ora l, 2 times daily, First dose on Milena 05/03/20 at 0600
Hold for SBP<100 HR<60
[facility] Medication administered onsite normal saline flush 0.9 % injection 3 mL [id number] 05/03/2020 06:00:00 AM EDT 3 mL Intravenous active 3 mL , Intravenous, PROTOCOL, First dose on Milena 05/03/20 at 0600
May convert to saline lock with minimally 600 ml PO intake on first POD; prior to transfer
[facility] Medication administered onsite atorvastatin 80 MG Oral Tablet atorvastatin (LIPITOR) tablet 80 mg atorvastatin (LIPITOR) tablet 80 mg 05/02/2020 09:00:00 PM EDT 80 mg Oral active 80 mg, Oral, Daily, First dose on Thu05/02/20 at 2100 [facility] Medication administered onsite cefazolin (ANCEF) injection [...] this medication through syringe adapter set ref [id number]. Flush line after use
[facility] Perioperative Pharmacoprophylaxis Medication administered onsite Insulin [...] cover POC glucose at 08:00, 12:00, 17:00.
[facility] Medication administered onsite Vitamin B 12 1 MG/ML Injectable Solution cyanocobalami n injection 1,000 mcg cyanocobalamin injection 1,000 mcg 05/02/2020 02:00:00 PM EDT 10 00 ug Subcutaneous completed 1,000 mcg, S ubcutaneous, Once, Thu05/02/20 at 1400, For 1 dose, PACU & Post-op
DEEP SUBCUTANEOUS
[facility] Medication administered onsite Famotidine (PEPCID) injection 20 mg [id number] 05/02/2020 02:00:0 0 PM EDT 20 mg Intravenous aborted 20 mg, I ntravenous, Every 12 hours (scheduled), First dose on Thu05/02/20 at 1400, PACU & Post-op
D/C after extubation
[facility] Medication administered onsite Magnesium Chloride 0.22818 MEQ/ML / Pota ssium Chloride 0.0497 MEQ/ML [...] intake is 2 liters in 24 hours
[facility] Medication administered onsite niCARdipine (CARDENE) 50 mg/250 ml 0.9% NaCl infusion 05/02/2020 02:00:00 PM EDT Intravenous aborted PACU & Post-op, 0-15 mg/hr (0-75 mL/hr), Intravenous, Continuous, Starting Thu05/02/20 at 1400, Until Milena 05/03/20 at 1810, at 0-75 mL/hr [facility] Medication administered onsite Dexmedetomidine HCl 400 mcg in sodium chloride (NS) 0.9 % 10 0 mL infusion 05/02/2020 02:00:00 PM EDT Intravenous aborted Post-op, 0.2-0.7 mcg/kg/hr 91.8 kg (4.59-16.065 mL/hr, rounded to 4.6-16.1 mL/hr), Intravenous, Continuous, Starting Thu05/02/20 at 1400, Until Thu05/02/20 at 2018, at 4.6-16.1 mL/hr [facility] Medication administered onsite pantoprazole 40 MG Delayed Release Oral Tablet pantoprazole (PROTONIX) EC tablet 40 mg pantoprazole (PROTONIX) EC tablet 40 mg 05/02/2020 02:00:00 PM E DT 40 mg Oral aborted Gastroesophageal Reflux Diseas e 40 mg, Oral, Daily, Indications: Gastroesophageal Reflux Disease, First dose on Thu05/02/20 at 1400, Post-op
Start after extubation Do Not Crush
[facility] Gastroesophageal Reflux Disease Medication administered onsite propofol (DIPRIVAN) infusion 10 mg/mL [id number] 05/02/2020 02:00 :00 PM EDT Intravenous aborted [...] OFF 2 HOURS AFTER ADMISSION TO CVICU
[facility] Medication administered onsite Tamsulosin hydrochloride 0.4 MG Oral Cap sg tamsulosin (FLOMAX) 24 hr capsule 0.4 mg tamsulosin (FLOMAX) 24 hr capsule 0.4 mg 05/02/2020 02:00:00 PM EDT 0.4 mg Oral active 0.4 mg, Oral, Daily, Fir st dose on Thu05/02/20 at 1400 [facility] Medication administered onsite Citalopram 40 MG Oral Tablet citalopram (CeleXA) table t 40 mg citalopram (CeleXA) tablet 40 mg 05/02/2020 02:00:00 PM EDT 40 mg Oral active 40 mg, Oral, Daily, First dose on Thu05/02/20 at 1400 [facility] Medication administered onsite oxyCODONE-acetaminophen (PERCOCET) 5-325 [...] opiate orders before starting.
[Order 2 End] [facility] Medication administered onsite 2 ML Metoclopramide 5 MG/ML Prefilled [facility] metoclopramide (REGLAN) injection 10 mg metoclopramide (REGLAN) injection 10 mg 05/02/2020 12:53:57 PM E DT 10 mg Intravenous active 10 mg, I ntravenous, Every 6 hours PRN, nausea, vomiting, if zofran is not effective, Starting Thu05/02/20 at 1253 [facility] Medication administered onsite 1 ML Naloxone Hydrochloride 0.4 MG/ML In jection naloxone (NARCAN) injection 0.2 mg naloxone (NARCAN) injection 0.2 mg 05/02/2020 12:53:57 PM EDT 0.2 mg Intravenous active 0.2 mg, Intra venous, As needed, opioid reversal, PRN for RR< 8 and/or unable to arouse patient immediately., Starting Thu05/02/20 at 1253 [facility] Medication administered onsite 2 ML Midazolam 1 MG/ML Injection midazolam (VERSED) in jection 1 mg midazolam (VERSED) injection 1 mg 05/02/2020 12:53:57 PM EDT 1 mg Intraveno us aborted 1 mg, Intravenous, E very 30 min PRN, anxiety, sedation, Starting Thu05/02/20 at 1253, For 7 days, PACU & Post-op
Target RASS -2 to +1 DISCONTINUE AFTER EXTUBATION
[facility] Medication administered onsite ondansetron (ZOFRAN) injection 4 mg [id number] 05/02/2020 12:53:5 7 PM EDT 4 mg Intravenous aborted 4 mg, In travenous, Every 6 hours PRN, nausea, vomiting, Starting Thu05/02/20 at 1253 [facility] Medication administered onsite fentaNYL Citrate (PF) (SUBLIMAZE) injection 25 mcg [id number] 05/02/2020 12:53:56 PM EDT 25 ug Intravenous aborted 25 mcg, Intravenous, Every 10 min PRN, moderate pain (4-6), Starting Thu05/02/20 at 1253, For 7 days, PACU & Post-op
Maximum 10 doses in a 24-hour period. DISCONTINUE 6 HOURS POST EXTUBATION
[facility] Medication administered onsite HYDROmorphone (DILAUDID) injection 0.5 mg [id number] 05/02/2020 12:53:56 PM EDT 0.5 mg Intravenous aborted 0.5 mg, Intravenous, Every 5 min PRN, severe pain (7-10), Starting Thu05/02/20 at 1253, For 7 days
Indicated for patients less than 75 years of age and not frail patients. FOR EXTUBATED PATIENTS ONLY. DISCONTINUE 6 HOURS POST EXTUBATION. Maximum dose 2 mg.
[facility] Medication administered onsite HYDROmorphone (DILAUDID) injection 0.5 mg [id number] 05/02/2020 12:53:56 PM EDT 0.5 mg Intravenous aborted 0.5 mg, Intravenous, Every 10 min PRN, severe pain (7-10), Starting Thu05/02/20 at 1253, For 7 days, PACU & Post- op
Indicated for patients less than 75 years of age and not frail patients. FOR INTUBATED PATIENTS ONLY. DISCONTINUE POST EXTUBATION. Maximum dose 3 mg.
[facility] Medication administered onsite dextrose 50 % solution 25 mL [id number] 05/02/2020 12:53:55 PM EDT 25 mL Intravenous [...] insulin infusion at 50% of previous rate.
[facility] Medication administered onsite Acetaminophen 650 MG Rectal Suppository acetaminophen (TYLENOL) suppository 650 mg acetaminophen (TYLENOL) suppository 650 mg 05/02/2020 12:53:54 P M EDT 1 {suppository} Rectal active 650 mg (1 suppository), Rectal, Every 4 hours PRN, headaches, and temp >101. Call MD/PA, Starting Thu05/02/20 at 1253 [facility] Medication administered onsite Acetaminophen 325 MG Oral Tablet acetaminophen (TYLENO L) 325 MG tablet 650 mg acetaminophen (TYLENOL) 325 MG tablet 650 mg 05/02/2020 12:53:54 PM EDT 650 mg Oral active 650 mg, Or al, Every 4 hours PRN, headaches, and temp >101. Call MD/PA., Starting Thu05/02/20 at 1253
"Maximum dose of acetaminophen is 4,000 mg from all sources in 24 hours."
[facility] Medication administered onsite Metoprolol Tartrate 25 MG Oral Tablet me toprolol tartrate (LOPRESSOR) tablet 12.5 mg metoprolol tartrate (LOPRESSOR) tablet 12.5 mg 09:00:00 AM EDT 12.5 mg Oral aborted 12.5 mg, Oral, 2 times daily, First dose on Thu05/02/20 at 0900, Pre-op
Hold for HR < 60, or SBP <100
[facility] Medication administered onsite BUPIVACAINE 0.5% (Q-BALL) 330 mL 05/02/2020 07:00:00 AM EDT 330 mL Topical active 330 mL, Topical , Continuous, Starting Thu05/02/20 at 0700, Intra- op
Please indicate single or double lumen: Double Lumen [facility] Medication administered onsite heparin (porcine) injection 5,000 Units [id number] 05/03/19 07:00:00 AM EDT 5000 U Subcutaneous completed 5,000 Uni ts, Subcutaneous, Once, Thu05/02/20 at 0700, For 1 dose, Pre-op
Once on admission. Hold for platelets < 90,000.
[facility] Medication administered onsite Citalopram 40 MG [...] 04/13/2020 12:00:00 AM EST aborted as needed [facility] Citalopram 40 MG Oral Tablet CITALOPRAM [...] CANISTER (PROVENTIL HFA;VENTOLIN HFA) inhaler 2 puff [id number] 04/02/2020 12:54:44 PM EST 2 {puff} Inhalation [...] be repeated before and after each use.
[facility] Medication administered onsite 25 mg 03/16/2020 [...] tablets (20 mg total) by mouth daily [facility] Chlorthalidone 25 MG Oral Tablet chlorthalidone (HYGRO TEN) 25 MG tablet chlorthalidone (HYGROTEN) 25 MG tablet 02/26/2020 12:00:00 AM EST 2 5 mg Oral active Take 1 tablet (25 mg tota l) by mouth daily [facility] normal saline flush 0.9 % injection 3 mL [id number] 02/24/2020 02:00:00 PM EST 3 mL Intravenous active 3 mL , Intravenous, PROTOCOL, First dose on Thu02/24/20 at 1400, Pre-op
flush per protocol, D/C Main IV fluid if appropriate
[facility] Medication administered onsite iopamidol (ISOVUE-370) 76 % [id number] 02/24/2020 10:08:03 AM EST active As needed, Starting Thu02/24/20 at 1008, Intra-Procedu re [facility] Medication administered onsite heparin (porcine) injection [id number] 02/24/2020 09:28:46 AM EST active As needed, Starting Thu02/24/20 at 0928, Intra-Procedure [facility] Medication administered onsite 4 ML Verapamil hydrochloride 2.5 MG/ML Injection verap christiane (ISOPTIN) injection verapamil (ISOPTIN) injection 02/24/2020 09:28:36 AM EST active As needed, Starting Thu02/24/20 at 0928, Intra-Procedure [facility] Medication administered onsite lidocaine 1 % injection [id number] 02/24/2020 09:28:10 AM EST active As needed, Starting Thu02/24/20 at 0928, Intra-Procedure [facility] Medication administered onsite 2 ML Midazolam 1 MG/ML Injection midazolam (VERSED) in jection midazolam (VERSED) injection 02/24/2020 09:21:02 AM EST active As needed, Starting Thu02/24/20 at 0921, Intra-Procedure [facility] Medication administered onsite fentaNYL Citrate (PF) (SUBLIMAZE) injection [id number] 02/24/2020 09:20:49 AM EST active As neede d, Starting Thu02/24/20 at 0920, Intra-Procedure [facility] Medication administered onsite normal saline flush 0.9 % injection 3 mL [id number] 02/24/2020 07:00:00 AM EST 3 mL Intravenous active 3 mL , Intravenous, Every 8 hours (scheduled), First dose on Thu02/24/20 at 0700, Pre-op
Rapid push positive pressure flushing shall be performed with a 10 cc normal saline syringe to check the PATENCY of a PIV site prior to any infusion therapy initiation unless resistance is met.
[facility] Medication administered onsite normal saline flush 0.9 % injection 3 mL [id number] 02/24/2020 07:00:00 AM EST 3 mL Intravenous active 3 mL , Intravenous, Every 8 hours (scheduled), First dose on Thu02/24/20 at 0700, Pre-op
Rapid push positive pressure flushing shall be performed with a 10 cc normal saline syringe to check the PATENCY of a PIV site prior to any infusion therapy initiation unless resistance is met.
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
Start two hours prior to scheduled start time
[facility] Medication administered onsite Aspirin 325 MG [...] home. Max of 1 dose per day.
[facility] Medication administered onsite Citalopram 40 MG [...] active Take 40 mg by mouth daily [facility] Chlorthalidone 25 MG Oral Tablet chlorthalidone (HYGRO TEN) 25 MG tablet chlorthalidone (HYGROTEN) 25 MG tablet 01/18/2020 12:00:00 AM EST 2 5 mg Oral aborted Take 25 mg by mouth daily [facility] Lisinopril 40 MG Oral Tablet lisinopril (PRINIVIL,ZEST RIL) 40 MG tablet lisinopril (PRINIVIL,ZESTRIL) 40 MG tablet 01/18/2020 12:00:00 AM EST aborted TAKE ONE HALF TABLET BY MOUTH TW ICE A DAY [facility] Sucralfate 1000 MG Oral Tablet sucralfate (CARAFATE) 1 g tablet sucralfate (CARAFATE) 1 g tablet 01/18/2020 12:00:00 AM EST 1 g Oral active Take 1 g by mouth 2 (two) times a day [facility] Tamsulosin hydrochloride 0.4 MG Oral Capsule tamsulosi n (FLOMAX) 0.4 MG CAPS tamsulosin (FLOMAX) 0.4 MG CAPS 01/18/2020 12:00:00 AM EST 0.4 mg O ral active Take 0.4 mg by mouth daily [facility] 1 gram 01/18/2020 12:00:00 AM EST [...] 1.0 {tablet_on_an_empty_stomach} active Carafate 1 GM eCW1 ([facility]) Sucralfate 1000 MG Oral Tablet [Carafate] Carafate 1 GM Lucia fate 1 GM 01/17/2020 12:00:00 AM EST 1.0 {tablet_on_an_empty_stomach} active Carafate 1 GM eCW1 ([facility]) Sucralfate 1000 MG Oral Tablet [Carafate] Carafate 1 GM Lucia fate 1 GM 01/17/2020 12:00:00 AM EST 1.0 {tablet_on_an_empty_stomach} active Carafate 1 GM eCW1 ([facility]) Sucralfate 1000 MG Oral Tablet [Carafate] Carafate 1 GM Lucia fate 1 GM 01/17/2020 12:00:00 AM EST 1.0 {tablet_on_an_empty_stomach} active Carafate 1 GM eCW1 ([facility]) Mirtazapine 7.5 MG Oral Tablet Mirtazapine 7.5 MG 01/16/2020 12:00: 00 AM EST 2.0 {tablets_at_bedtime} active Mirtaza pine 7.5 MG eCW1 ([facility]) Mirtazapine 7.5 MG Oral Tablet Mirtazapine 7.5 MG 01/16/2020 12:00: 00 AM EST 2.0 {tablets_at_bedtime} active Mirtaza pine 7.5 MG eCW1 ([facility]) Mirtazapine 7.5 MG Oral Tablet mirtazapine (REMERON) 7 .5 MG tablet mirtazapine (REMERON) 7.5 MG tablet 01/16/2020 12:00:00 AM EST 15 mg Oral active Take 15 mg by mouth nightly as needed (for sleep) [facility] Mirtazapine 7.5 MG Oral Tablet Mirtazapine 7.5 MG 01/16/2020 12:00: 00 AM EST 2.0 {tablets_at_bedtime} active Mirtaza pine 7.5 MG eCW1 ([facility]) Mirtazapine 7.5 MG Oral Tablet Mirtazapine 7.5 MG 01/16/2020 12:00: 00 AM EST 2.0 {tablets_at_bedtime} active Mirtaza pine 7.5 MG eCW1 ([facility]) 7.5 mg 01/16/2020 12:00:00 AM EST [...] 1.0 {capsule} active Flomax 0.4 MG eCW1 ([facility]) Tamsulosin hydrochloride 0.4 MG Oral Capsule [Flomax] Flomax 0.4 MG Flomax 0.4 MG 12/09/2019 12:00:00 AM EDT 1.0 {capsule} active Flomax 0.4 MG eCW1 ([facility]) Tamsulosin hydrochloride 0.4 MG Oral Capsule [Flomax] Flomax 0.4 MG Flomax 0.4 MG 12/09/2019 12:00:00 AM EDT 1.0 {capsule} active Flomax 0.4 MG eCW1 ([facility]) Tamsulosin hydrochloride 0.4 MG Oral Capsule [Flomax] Flomax 0.4 MG Flomax 0.4 MG 12/09/2019 12:00:00 AM EDT 1.0 {capsule} active Flomax 0.4 MG eCW1 ([facility]) atorvastatin 40 MG Oral Tablet ATORVASTATIN [...] 1.0 {capsule} active Flomax 0.4 MG eCW1 ([facility]) atorvastatin 40 MG Oral Tablet ATORVASTATIN CALCIUM 12/09/2019 1 2:00:00 AM EDT tablet 90 TAKE ONE TABLET BY MOUTH EVERY D AY TAKE ONE TABLET BY MOUTH EVERY DAY SOLD: 05/07/2020 [facility] Tamsulosin hydrochloride 0.4 MG Oral Capsule [Flomax] Flomax 0.4 MG Flomax 0.4 MG 12/09/2019 12:00:00 AM EDT 1.0 {capsule} active Flomax 0.4 MG eCW1 ([facility]) 0.4 mg 12/09/2019 12:00:00 AM EDT capsule 30 TAKE ONE CAPSULE BY MOUTH EVERY DAY TAKE ONE CAPSULE BY MOUTH EVERY DAY SOLD: 12/12/2019 [facility] Tamsulosin hydrochloride 0.4 MG Oral Capsule [Flomax] Flomax 0.4 MG Flomax 0.4 MG 12/09/2019 12:00:00 AM EDT 1.0 {capsule} active Flomax 0.4 MG eCW1 ([facility]) atorvastatin 40 MG Oral Tablet atorvastatin (LIPITOR) 40 MG tablet atorvastatin (LIPITOR) 40 MG tablet 12/09/2019 12:00:00 AM EDT 40 mg Oral aborted Take 40 mg by mouth daily [facility] Nortriptyline 25 MG Oral Capsule nortriptyline (PAMELO R) 25 MG capsule nortriptyline (PAMELOR) 25 MG capsule 12/09/2019 12:00:00 AM EDT 50 m g Oral active Take 50 mg by mouth nightly as needed [facility] Tamsulosin hydrochloride 0.4 MG Oral Capsule [Flomax] Flomax 0.4 MG Flomax 0.4 MG 12/09/2019 12:00:00 AM EDT 1.0 {capsule} active Flomax 0.4 MG eCW1 ([facility]) Tamsulosin hydrochloride 0.4 MG Oral Capsule [Flomax] Flomax 0.4 MG Flomax 0.4 MG 12/09/2019 12:00:00 AM EDT 1.0 {capsule} active Flomax 0.4 MG eCW1 ([facility]) 25 mg 12/09/2019 12:00:00 AM EDT capsule 60 TAKE TWO CAPSULES BY MOUTH EVERY DAY BEFORE BEDTIME TAKE TWO CAPSULES BY MOUTH EVERY DAY BEFORE BEDTIME SO LD: 12/12/2019 [facility] Tamsulosin hydrochloride 0.4 MG Oral Capsule [Flomax] Flomax 0.4 MG Flomax 0.4 MG 12/09/2019 12:00:00 AM EDT 1.0 {capsule} active Flomax 0.4 MG eCW1 ([facility]) Tamsulosin hydrochloride 0.4 MG Oral Capsule [Flomax] Flomax 0.4 MG Flomax 0.4 MG 12/09/2019 12:00:00 AM EDT 1.0 {capsule} active Flomax 0.4 MG eCW1 ([facility]) Tamsulosin hydrochloride 0.4 MG Oral Capsule [Flomax] Flomax 0.4 MG Flomax 0.4 MG 12/09/2019 12:00:00 AM EDT 1.0 {capsule} active Flomax 0.4 MG eCW1 ([facility]) Tamsulosin hydrochloride 0.4 MG Oral Capsule [Flomax] Flomax 0.4 MG Flomax 0.4 MG 12/09/2019 12:00:00 AM EDT 1.0 {capsule} active Flomax 0.4 MG eCW1 ([facility]) Tamsulosin hydrochloride 0.4 MG Oral Capsule [Flomax] Flomax 0.4 MG Flomax 0.4 MG 12/09/2019 12:00:00 AM EDT 1.0 {capsule} active Flomax 0.4 MG eCW1 ([facility]) Tamsulosin hydrochloride 0.4 MG Oral Capsule [Flomax] Flomax 0.4 MG Flomax 0.4 MG 12/09/2019 12:00:00 AM EDT 1.0 {capsule} active Flomax 0.4 MG eCW1 ([facility]) Tamsulosin hydrochloride 0.4 MG Oral Capsule [Flomax] Flomax 0.4 MG Flomax 0.4 MG 12/09/2019 12:00:00 AM EDT 1.0 {capsule} active Flomax 0.4 MG eCW1 ([facility]) 0.4 mg 12/09/2019 12:00:00 AM EDT capsule 30 TAKE ONE CAPSULE BY MOUTH EVERY DAY TAKE ONE CAPSULE BY MOUTH EVERY DAY SOLD: 03/22/2020 [facility] Tamsulosin hydrochloride 0.4 MG Oral Capsule [Flomax] Flomax 0.4 MG Flomax 0.4 MG 12/09/2019 12:00:00 AM EDT 1.0 {capsule} active Flomax 0.4 MG eCW1 ([facility]) Tamsulosin hydrochloride 0.4 MG Oral Capsule [Flomax] Flomax 0.4 MG Flomax 0.4 MG 12/09/2019 12:00:00 AM EDT 1.0 {capsule} active Flomax 0.4 MG eCW1 ([facility]) Tamsulosin hydrochloride 0.4 MG Oral Capsule [Flomax] Flomax 0.4 MG Flomax 0.4 MG 12/09/2019 12:00:00 AM EDT 1.0 {capsule} active Flomax 0.4 MG eCW1 ([facility]) atorvastatin 40 MG Oral Tablet ATORVASTATIN CALCIUM 12/09/2019 1 2:00:00 AM EDT tablet 90 TAKE ONE TABLET BY MOUTH EVERY D AY TAKE ONE TABLET BY MOUTH EVERY DAY SOLD: 08/30/2020 [facility] Tamsulosin hydrochloride 0.4 MG Oral Capsule [Flomax] Flomax 0.4 MG Flomax 0.4 MG 12/09/2019 12:00:00 AM EDT 1.0 {capsule} active Flomax 0.4 MG eCW1 ([facility]) Tamsulosin hydrochloride 0.4 MG Oral Capsule [Flomax] Flomax 0.4 MG Flomax 0.4 MG 12/09/2019 12:00:00 AM EDT 1.0 {capsule} active Flomax 0.4 MG eCW1 ([facility]) Tamsulosin hydrochloride 0.4 MG Oral Capsule [Flomax] Flomax 0.4 MG Flomax 0.4 MG 12/09/2019 12:00:00 AM EDT 1.0 {capsule} active Flomax 0.4 MG eCW1 ([facility]) Tamsulosin hydrochloride 0.4 MG Oral Capsule [Flomax] Flomax 0.4 MG Flomax 0.4 MG 12/09/2019 12:00:00 AM EDT 1.0 {capsule} active Flomax 0.4 MG eCW1 ([facility]) Tamsulosin hydrochloride 0.4 MG Oral Capsule [Flomax] Flomax 0.4 MG Flomax 0.4 MG 12/09/2019 12:00:00 AM EDT 1.0 {capsule} active Flomax 0.4 MG eCW1 ([facility]) Tamsulosin hydrochloride 0.4 MG Oral Capsule [Flomax] Flomax 0.4 MG Flomax 0.4 MG 12/09/2019 12:00:00 AM EDT 1.0 {capsule} active Flomax 0.4 MG eCW1 ([facility]) Tamsulosin hydrochloride 0.4 MG Oral Capsule [Flomax] Flomax 0.4 MG Flomax 0.4 MG 12/09/2019 12:00:00 AM EDT 1.0 {capsule} active Flomax 0.4 MG eCW1 ([facility]) atorvastatin 80 MG Oral Tablet atorvastatin (LIPITOR) 80 MG tablet atorvastatin (LIPITOR) 80 MG tablet 10/18/2019 12:00:00 AM EDT active TAKE ONE TABLET BY MOUTH EVERY DAY [facility] 75 mg 10/15/2019 12:00:00 AM EDT [...] SOLD: 10/18/2019 [facility] Multiple Vitamin tablet [id number] 02/04/2018 12:00:00 AM EST aborted MULTIPLE VITAMIN TABS [facility] Lidocaine Hydrochloride 40 MG/ML Topical Cream Lidocai ne HCl 4 % CREA Lidocaine HCl 4 % CREA 02/04/2018 12:00:00 AM EST abort ed LIDOCAINE HCL 4 % CREA [facility] Acetaminophen 325 MG / Hydrocodone Ronnie trate 10 MG Oral Tablet HYDROcodone- acetaminophen (NORCO) 10-325 MG per tablet HYDROcodone-acetaminophen (NORCO) 10- 325 MG per tablet 01/30/2015 12:00:00 AM EST aborted NORCO 10-325 MG TABS [facility] clopidogrel 75 MG Oral Tablet clopidogrel (PLAVIX) 75 MG tablet clopidogrel (PLAVIX) 75 MG tablet 01/30/2015 12:00:00 AM EST 75 mg Oral active Take 75 mg by mouth daily [facility] Insurance Providers Payer name Policy type / Coverage type Policy ID Covered green party ID Covered green party's relationship to alfaro Policy Alfaro Plan Information MEDICAID M [id number] Self [id number] [facility] I [id number] Self [id number] [facility] I [id number] Self [id number] [facility] [id number] SP [id number] [facility] [id number] SP [id number] MEDICAID [id number] SP [id number] [facility] [id number] SP [id number] [facility] [id number] SP [id number] [facility] Health Maintenance Organization (HMO) [id number] Self [id number] [employer] [id number] SP [id number] MEDICARE [id number] Kristine [id number] [employer] MEDICARE [id number] Kristine [id number] [employer] MEDIC[employer] Medicare [id number] xxxxxxxxxxxx [id number] [employer] MEDICARE [id number] Kristine [id number] INSURANCE COVID-19 COVID Kristine C OVID INSURANCE COVID-19 COVID Kristine C OVID INSURANCE COVID-19 [id number] [id number] INSURANCE COVID-19 COVID Kristine C OVID [employer] [facility] [id number] [facility] COMMUN PLAN [id number] ANSI-Medicaid [id number] ANSI-Medicaid [id number] ANSI-Medicaid [id number] ANSI-Medicaid [id number] ANSI-Medicaid [id number] ANSI-Medicaid [id number] ANSI-Medicaid [id number] ANSI-Medicaid [id number] ANSI-Medicaid [id number] ANSI-Medicaid [id number] ANSI-Medicaid [id number] ANSI-Medicaid [id number] [facility] Commercial [id number] Self [id number] ANSI-Medicaid [id number] ANSI-Medicaid [id number] ANSI-Medicaid [id number] ANSI-Medicaid [id number] ANSI-Medicaid [id number] ANSI-Medicaid [id number] ANSI-Medicaid [id number] ANSI-Medicaid [id number] ANSI-Medicaid [id number] ANSI-Medicaid [id number] ANSI-Medicaid [id number] ANSI-Medicaid [id number] ANSI-Medicaid [id number] ANSI-Medicaid [id number] ANSI-Medicaid [id number] ANSI-Medicaid [id number] ANSI-Medicaid [id number] ANSI-Medicaid [id number] ANSI-Medicaid [id number] ANSI-Medicaid [id number] ANSI-Medicaid [id number] ANSI-Medicaid [id number] ANSI-Medicaid [id number] ANSI-Medicaid [id number] ANSI-Medicaid [id number] ANSI-Medicaid [id number] ANSI-Medicaid [id number] ANSI-Medicaid [id number] ANSI-Medicaid [id number] ANSI-Medicaid [id number] ANSI-Medicaid [id number] ANSI-Medicaid [id number] ANSI-Medicaid [id number] ANSI-Medicaid [id number] ANSI-Medicaid [id number] ANSI-Medicaid [id number] MEDICAID [id number] SP [id number] MEDICAID [id number] SP [id number] MEDICAID M [id number] [facility] Maintenance [facility] ([facility]) [id number] Self [id number] MEDICAID M [id number] S [id number] [facility] UNAVAILABLE SP UNAVAILABLE [facility] [employer] [id number] Self [id number] JOSE MANUEL [facility] UNAVAILABLE SP U NAVAILABLE JOSE MANUEL [id number] SP [id number] JOSE MANUEL [id number] SP [id number] [facility] [employer] [id number] Self [id number] [place] [facility] [employer] [id number] Self [id number] JOSE MANUEL CARE [facility] [id number] S [id number] [facility] [id number] SP [id number] MEDICAID M [id number] S [id number] [facility] Maintenance Organization ([facility]) [id number] Self 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 O [id number] S [id number] SELF PAY UNAVAILABLE SP UNAVAILA BLE TRAVELERS W/C [id number] SP [id number] MEDICARE BLUE PPO [id number] SP [id number] TRAVELERS W/C [id number] SP [id number] MEDICARE BLUE PPO 306 [id number] SP [id number] MEDICARE [id number] SP [id number] [employer]BS B [id number] S [id number] MEDICARE [id number] SP [id number] MEDICARE [id number] SP [id number] BCBS [place] PPO 302/307 [id number] SP [id number] [facility] [id number] SP [id number] [employer] [facility] [employer] [facility] O [id number] S [id number] REPLACED BY [facility] [id number] SP [id number] [place] MEDICARE [id number] SP [id number] [facility] O [id number] S [id number] [facility]-Medicaid [id number] ANS-Medicaid [id number] ANS-Medicaid [id number] ANS-Medicaid [id number] ANS-Medicaid [id number] [facility]-Medicaid [id number] Problems, Conditions, and Diagnoses Code Display Name Description Problem Type Effective Dates Data Source(s) I10 Essential (primary) hypertension Essential (primary) h ypertension Diagnosis 09/17/2020 10:10:38 AM EDT [facility] I73.9 Peripheral vascular disease, unspecified Peripheral vascular disease, unspecified Diagnosis 09/17/2020 10:10:38 AM EDT [facility] I35.0 Nonrheumatic aortic (valve) stenosis Nonrheumati c aortic (valve) stenosis Diagnosis 09/17/2020 10:10:38 AM EDT [facility] E78.5 Hyperlipidemia, unspecified Hyperlipidemia, unspecifie d Diagnosis 09/17/2020 10:10:38 AM EDT [facility] I35.1 Nonrheumatic aortic (valve) insufficienc y Nonrheumatic aortic (valve) insufficienc Diagnosis 05/18/2020 10:13:01 AM EDT [facility] F17.210 Nicotine dependence, cigarettes, uncompl icated Nicotine dependence, cigarettes, uncompl Diagnosis 05/16/2020 10:59:12 AM EDT [facility] I35.1 Nonrheumatic aortic (valve) insufficienc y Nonrheumatic aortic (valve) insufficienc Diagnosis 05/02/2020 05:24:00 AM EDT [facility] U07.1 COVID-19 COVID-19 Diagnosis 04/27/2020 09:32:34 AM ED T [facility] G62.9 [id number] Peripheral polyneuropathy Problem 08/06/2020 12:00:00 AM EDT eCW1 ([facility]) I73.9 [id number] Peripheral angiopathies Problem 08/06/2020 1 2:00:00 AM EDT eCW1 ([facility]) Z95.2 [id number] S/P AVR Problem 05/30/2020 12:00:00 AM EDT eCW1 ([facility]) I35.1 Nonrheumatic aortic valve insufficiency Nonrheumatic aortic valve insufficiency [id number] 02/28/2020 12:00:00 AM EST [facility] I35.0 Aortic valve stenosis Aortic valve stenosis [id number] 02/17/2020 12:00:00 AM EST [facility] K64.4 [id number] External hemorrhoids Problem 01/16/2020 12:0 0:00 AM EST eCW1 ([facility]) N40.1 [id number] Benign prostatic hyp erplasia with lower urinary tract symptoms Problem 12/09/2019 12:00:00 AM EDT eCW1 ([facility]) Surgeries/Procedures Procedure Description Date Indications Data Source(s) OFFICE OUTPATIENT VISIT 25 MINUTES 10/22/2020 12:00:00 AM EDT MEDFELISHA ([facility], ) BLOOD COUNT COMPLETE AUTO&AUTO DIFRNTL WBC COUNT <td>C BC AND DIFFERENTIAL</td><td>Routine</td><td>08/07/2020</td><td></td><td> </td> 08/07/2020 12:00:00 AM EDT [facility] IRON <td>IRON</td><td>Routine</td ><td>08/07/2020</td><td></td><td> </td> 08/07/2020 12:00:00 AM EDT [facility] HEMOGLOBIN GLYCOSYLATED A1C <td>HEMOGLOBIN A1C</td><td>Routine</td><td>08/07/2020</td><td></td><td> </td> 08/07/2020 12:00:00 AM EDT [facility] FERRITIN <td>FERRITIN</td><td>Routine </td><td>08/07/2020</td><td></td><td> </td> 08/07/2020 12:00:00 AM EDT [facility] OFFICE OUTPATIENT VISIT 15 MINUTES 06/21/2020 12:00:00 AM EDT MEDENT ([facility], ) ECG ROUTINE ECG W/LEAST 12 LDS W/I&R <td>POCT AMB EKG</td><td>Routine</td><td>05/16/2020 12:52 PM EDT</td><td> Nonrheumatic aortic valve stenosis</td><td> </td> 05/16/2020 04:52:00 PM EDT Nonrheumatic aortic valve stenosis [facility] Nonrheumatic aortic valve stenosis BLOOD OCCULT PEROXIDASE ACTV QUAL FECES 1 DETER <td>OC CULT BLOOD X 1, STOOL</td><td>Routine</td><td>05/06/2020 11:30 AM EDT</td><td></td><td> </td> 05/06/2020 03:30:00 PM EDT [facility] BLOOD COUNT COMPLETE AUTOMATED <td>CBC</td><td>Timed</ td><td>05/06/2020 2:22 AM EDT</td><td></td><td> </td> 05/06/2020 06:22:00 AM EDT [facility] MAGNESIUM <td>MAGNESIUM</td><td>Timed< /td><td>05/06/2020 2:22 AM EDT</td><td></td><td> </td> 05/06/2020 06:22:00 AM EDT [facility] BASIC METABOLIC PANEL CALCIUM TOTAL <td>BASIC METABOLI C PANEL</td><td>Timed</td><td>05/06/2020 2:22 AM EDT</td><td></td><td> </td> 05/06/2020 06:22:00 AM EDT [facility] GLUC BLD GLUC MNTR DEV CLEARED FDA SPEC HOME USE <td>P OCT GLUCOSE</td><td>Routine</td><td>05/05/2020 1:23 PM EDT</td><td></td><td> </td> 05/05/2020 05:23:00 PM EDT [facility] GLUC BLD GLUC MNTR DEV CLEARED FDA SPEC HOME USE <td>P OCT GLUCOSE</td><td>Routine</td><td>05/05/2020 8:29 AM EDT</td><td></td><td> </td> 05/05/2020 12:29:00 PM EDT [facility] BLOOD COUNT HEMOGLOBIN <td>HEMOGLOBIN</td><td>Routi ne</td><td>05/05/2020 6:25 AM EDT</td><td></td><td> </td> 05/05/2020 10:25:00 AM EDT [facility] BLOOD COUNT HEMATOCRIT <td>HEMATOCRIT</td><td>Routi ne</td><td>05/05/2020 6:25 AM EDT</td><td></td><td> </td> 05/05/2020 10:25:00 AM EDT [facility] BLOOD COUNT COMPLETE AUTOMATED <td>CBC</td><td>Timed</ td><td>05/05/2020 2:52 AM EDT</td><td></td><td> </td> 05/05/2020 06:52:00 AM EDT [facility] MAGNESIUM <td>MAGNESIUM</td><td>Timed< /td><td>05/05/2020 2:52 AM EDT</td><td></td><td> </td> 05/05/2020 06:52:00 AM EDT [facility] BASIC METABOLIC PANEL CALCIUM TOTAL <td>BASIC METABOLI C PANEL</td><td>Timed</td><td>05/05/2020 2:52 AM EDT</td><td></td><td> </td> 05/05/2020 06:52:00 AM EDT [facility] GLUC BLD GLUC MNTR DEV CLEARED FDA SPEC HOME USE <td>P OCT GLUCOSE</td><td>Routine</td><td>05/04/2020 5:03 PM EDT</td><td></td><td> </td> 05/04/2020 09:03:00 PM EDT [facility] XR CHEST PA AND LATERAL <td>XR CHEST PA AND LATERAL</td><td>STAT</td><td>05/04/2020 10:32 AM EDT</td><td></td><td> </td> 05/04/2020 02:32:03 PM EDT [facility] GLUC BLD GLUC MNTR DEV CLEARED FDA SPEC HOME USE <td>P OCT GLUCOSE</td><td>Routine</td><td>05/04/2020 9:39 AM EDT</td><td></td><td> </td> 05/04/2020 01:39:00 PM EDT [facility] ECG ROUTINE ECG W/LEAST 12 LDS TRCG ONLY W/O I&R <td>E CG 12- LEAD</td><td>Routine</td><td>05/04/2020 4:14 AM EDT</td><td></td><td></td> 05/04/2020 08:14:24 AM EDT [facility] BLOOD COUNT COMPLETE AUTOMATED <td>CBC</td><td>Timed</ td><td>05/04/2020 2:22 AM EDT</td><td></td><td> </td> 05/04/2020 06:22:00 AM EDT [facility] MAGNESIUM <td>MAGNESIUM</td><td>Timed< /td><td>05/04/2020 2:22 AM EDT</td><td></td><td> </td> 05/04/2020 06:22:00 AM EDT [facility] BASIC METABOLIC PANEL CALCIUM TOTAL <td>BASIC METABOLI C PANEL</td><td>Timed</td><td>05/04/2020 2:22 AM EDT</td><td></td><td> </td> 05/04/2020 06:22:00 AM EDT [facility] GLUC BLD GLUC MNTR DEV CLEARED FDA SPEC HOME USE <td>P OCT GLUCOSE</td><td>Routine</td><td>05/03/2020 6:28 PM EDT</td><td></td><td> </td> 05/03/2020 10:28:00 PM EDT [facility] GLUC BLD GLUC MNTR DEV CLEARED FDA SPEC HOME USE <td>P OCT GLUCOSE</td><td>Routine</td><td>05/03/2020 11:28 AM EDT</td><td></td><td> </td> 05/03/2020 03:28:00 PM EDT [facility] GLUC BLD GLUC MNTR DEV CLEARED FDA SPEC HOME USE <td>P OCT GLUCOSE</td><td>Routine</td><td>05/03/2020 7:25 AM EDT</td><td></td><td> </td> 05/03/2020 11:25:00 AM EDT [facility] GLUC BLD GLUC MNTR DEV CLEARED FDA SPEC HOME USE <td>P OCT GLUCOSE</td><td>Routine</td><td>05/03/2020 2:26 AM EDT</td><td></td><td> </td> 05/03/2020 06:26:00 AM EDT [facility] BLOOD COUNT COMPLETE AUTOMATED <td>CBC</td><td>Timed</ td><td>05/03/2020 2:24 AM EDT</td><td></td><td> </td> 05/03/2020 06:24:00 AM EDT [facility] MAGNESIUM <td>MAGNESIUM</td><td>Timed< /td><td>05/03/2020 2:24 AM EDT</td><td></td><td> </td> 05/03/2020 06:24:00 AM EDT [facility] CALCIUM IONIZED <td>CALCIUM, IONIZED</td><td >Timed</td><td>05/03/2020 2:24 AM EDT</td><td></td><td> </td> 05/03/2020 06:24:00 AM EDT [facility] BASIC METABOLIC PANEL CALCIUM TOTAL <td>BASIC METABOLI C PANEL</td><td>Timed</td><td>05/03/2020 2:24 AM EDT</td><td></td><td> </td> 05/03/2020 06:24:00 AM EDT [facility] GLUC BLD GLUC MNTR DEV CLEARED FDA SPEC HOME USE <td>P OCT GLUCOSE</td><td>Routine</td><td>05/03/2020 12:18 AM EDT</td><td></td><td> </td> 05/03/2020 04:18:00 AM EDT [facility] BLOOD COUNT COMPLETE AUTOMATED <td>CBC</td><td>STAT</t d><td>05/02/2020 10:11 PM EDT</td><td></td><td> </td> 05/03/2020 02:11:00 AM EDT [facility] POTASSIUM SERUM PLASMA/WHOLE BLOOD <td>POTASSIUM</td><td>Routine</td><td>05/02/2020 10:11 PM EDT</td><td></td><td> </td> 05/03/2020 02:11:00 AM EDT [facility] GLUC BLD GLUC MNTR DEV CLEARED FDA SPEC HOME USE <td>P OCT GLUCOSE</td><td>Routine</td><td>05/02/2020 10:07 PM EDT</td><td></td><td> </td> 05/03/2020 02:07:00 AM EDT [facility] GLUC BLD GLUC MNTR DEV CLEARED FDA SPEC HOME USE <td>P OCT GLUCOSE</td><td>Routine</td><td>05/02/2020 8:20 PM EDT</td><td></td><td> </td> 05/03/2020 12:20:00 AM EDT [facility] POC ARTERIAL BLOOD GAS <td>POC ARTERIAL BLOOD GAS</td><td>Routine</td><td>05/02/2020 7:56 PM EDT</td><td></td><td> </td> 05/02/2020 11:56:00 PM EDT [facility] GLUC BLD GLUC MNTR DEV CLEARED FDA SPEC HOME USE <td>P OCT GLUCOSE</td><td>Routine</td><td>05/02/2020 7:17 PM EDT</td><td></td><td> </td> 05/02/2020 11:17:00 PM EDT [facility] GLUC BLD GLUC MNTR DEV CLEARED FDA SPEC HOME USE <td>P OCT GLUCOSE</td><td>Routine</td><td>05/02/2020 5:07 PM EDT</td><td></td><td> </td> 05/02/2020 09:07:00 PM EDT [facility] POTASSIUM SERUM PLASMA/WHOLE BLOOD <td>POTASSIUM</td>< td>STAT</td><td>05/02/2020 5:06 PM EDT</td><td></td><td> </td> 05/02/2020 09:06:00 PM EDT [facility] GLUC BLD GLUC MNTR DEV CLEARED FDA SPEC HOME USE <td>P OCT GLUCOSE</td><td>Routine</td><td>05/02/2020 3:18 PM EDT</td><td></td><td> </td> 05/02/2020 07:18:00 PM EDT [facility] LEVEL IV SURG PATHOLOGY GROSS&MICROSCOPIC EXAM <td>[facility] HISTOLOGY</td><td>Routine</td><td>05/02/2020 2:43 PM EDT</td><td></td><td> </td> 05/02/2020 06:43:00 PM EDT [facility] GLUC BLD GLUC MNTR DEV CLEARED FDA SPEC HOME USE <td>P OCT GLUCOSE</td><td>Routine</td><td>05/02/2020 1:36 PM EDT</td><td></td><td> </td> 05/02/2020 05:36:00 PM EDT [facility] POC ARTERIAL BLOOD GAS <td>POC ARTERIAL BLOOD GAS</td><td>Routine</td><td>05/02/2020 1:21 PM EDT</td><td></td><td> </td> 05/02/2020 05:21:00 PM EDT [facility] XR CHEST PORTABLE <td>XR CHEST PORTABLE</td><t d>STAT</td><td>05/02/2020 1:15 PM EDT</td><td></td><td> </td> 05/02/2020 05:15:52 PM EDT [facility] POC CALCIUM BG <td>POC CALCIUM BG</td><td>R outine</td><td>05/02/2020 1:15 PM EDT</td><td></td><td> </td> 05/02/2020 05:15:00 PM EDT [facility] GLUC BLD GLUC MNTR DEV CLEARED FDA SPEC HOME USE <td>P OCT GLUCOSE</td><td>Routine</td><td>05/02/2020 1:09 PM EDT</td><td></td><td> </td> 05/02/2020 05:09:00 PM EDT [facility] ECG ROUTINE ECG W/LEAST 12 LDS TRCG ONLY W/O I&R <td>E CG 12- LEAD</td><td>Routine</td><td>05/02/2020 1:06 PM EDT</td><td></td><td></td> 05/02/2020 05:06:38 PM EDT [facility] BLOOD COUNT COMPLETE AUTOMATED <td>CBC</td><td>STAT</t d><td>05/02/2020 1:06 PM EDT</td><td></td><td> </td> 05/02/2020 05:06:00 PM EDT [facility] MAGNESIUM <td>MAGNESIUM</td><td>STAT</ td><td>05/02/2020 1:06 PM EDT</td><td></td><td> </td> 05/02/2020 05:06:00 PM EDT [facility] CALCIUM IONIZED <td>CALCIUM, IONIZED</td><td >STAT</td><td>05/02/2020 1:06 PM EDT</td><td></td><td> </td> 05/02/2020 05:06:00 PM EDT [facility] BASIC METABOLIC PANEL CALCIUM TOTAL <td>BASIC METABOLI C PANEL</td><td>STAT</td><td>05/02/2020 1:06 PM EDT</td><td></td><td> </td> 05/02/2020 05:06:00 PM EDT [facility] POC ACT <td>POC ACT</td><td>Routine< /td><td>05/02/2020 11:53 AM EDT</td><td></td><td> </td> 05/02/2020 03:53:00 PM EDT [facility] POC ARTERIAL BLOOD GAS W LYTES <td>POC ARTERIAL BLOOD GAS W LYTES</td><td>Routine</td><td>05/02/2020 11:53 AM EDT</td><td></td><td> </td> 05/02/2020 03:53:00 PM EDT [facility] THROMBOPLASTIN TIME PARTIAL PLASMA/WHOLE BLOOD <td>APTT</td><td>Routine</td><td>05/02/2020 11:52 AM EDT</td><td></td><td> </td> 05/02/2020 03:52:00 PM EDT [facility] PROTHROMBIN TIME <td>PROTIME-INR</td><td>Rout ine</td><td>05/02/2020 11:52 AM EDT</td><td></td><td> </td> 05/02/2020 03:52:00 PM EDT [facility] POC VENOUS BLOOD GAS W LYTES <td>POC VENOUS BLOOD GAS W LYTES</td><td>Routine</td><td>05/02/2020 11:25 AM EDT</td><td></td><td> </td> 05/02/2020 03:25:00 PM EDT [facility] POC ACT <td>POC ACT</td><td>Routine< /td><td>05/02/2020 11:24 AM EDT</td><td></td><td> </td> 05/02/2020 03:24:00 PM EDT [facility] POC VENOUS BLOOD GAS W LYTES <td>POC VENOUS BLOOD GAS W LYTES</td><td>Routine</td><td>05/02/2020 10:36 AM EDT</td><td></td><td> </td> 05/02/2020 02:36:00 PM EDT [facility] POC ACT <td>POC ACT</td><td>Routine< /td><td>05/02/2020 10:36 AM EDT</td><td></td><td> </td> 05/02/2020 02:36:00 PM EDT [facility] POC ACT <td>POC ACT</td><td>Routine< /td><td>05/02/2020 10:08 AM EDT</td><td></td><td> </td> 05/02/2020 02:08:00 PM EDT [facility] POC ARTERIAL BLOOD GAS W LYTES <td>POC ARTERIAL BLOOD GAS W LYTES</td><td>Routine</td><td>05/02/2020 10:08 AM EDT</td><td></td><td> </td> 05/02/2020 02:08:00 PM EDT [facility] POC ARTERIAL BLOOD GAS W LYTES <td>POC ARTERIAL BLOOD GAS W LYTES</td><td>Routine</td><td>05/02/2020 9:11 AM EDT</td><td></td><td> </td> 05/02/2020 01:11:00 PM EDT [facility] POC ACT <td>POC ACT</td><td>Routine< /td><td>05/02/2020 9:10 AM EDT</td><td></td><td> </td> 05/02/2020 01:10:00 PM EDT [facility] RPLCMT PROST AORTIC VALVE XCP HOMOGRF/STENT <td>REPLAC EMENT, AORTIC VALVE, MINIMALLY INVASIVE, RIGHT THORACOTOMY APPROACH, USING HEARTPORT TECHNIQUE</td><td></td><td>05/02/2020 8:34 AM EDT</td><td> Nonrheumatic aortic valve insufficiency</td><td></td> 05/02/2020 12:34:00 PM EDT - 05/02/2020 05:34:00 PM EDT Nonrheumatic aortic valve insufficiency [facility] Nonrheumatic aortic valve insufficiency ECG TRANSESOPHAG R-T 2D W/PRB IMG ACQUISJ I&R <td>ECHO CARDIOGRAM TRANSESOPHAGEAL</td><td>Routine</td><td>05/02/2020 7:53 AM EDT</td><td></td><td></td> 05/02/2020 11:53:31 AM EDT [facility] ROOM TEMP AB SCREEN <td>ROOM TEMP AB SCREEN</td> <td>Routine</td><td>05/02/2020 7:14 AM EDT</td><td></td><td> </td> 05/02/2020 11:14:00 AM EDT [facility] BLOOD TYPING ABO <td>TYPE AND SCREEN</td><td> Routine</td><td>05/02/2020 7:14 AM EDT</td><td></td><td> </td> 05/02/2020 11:14:00 AM EDT [facility] GLUC BLD GLUC MNTR DEV CLEARED FDA SPEC HOME USE <td>P OCT GLUCOSE</td><td>Routine</td><td>05/02/2020 6:36 AM EDT</td><td></td><td> </td> 05/02/2020 10:36:00 AM EDT [facility] URNLS DIP STICK/TABLET RGNT AUTO W/O MICROSCOPY <td>UR INALYSIS W/O MICRO</td><td>Routine</td><td>04/27/2020 12:00 PM EDT</td><td> Nonrheumatic aortic valve insufficiency</td><td> </td> 04/27/2020 04:00:00 PM EDT Nonrheumatic aortic valve insufficiency [facility] Nonrheumatic aortic valve insufficiency ECG ROUTINE ECG W/LEAST 12 LDS TRCG ONLY W/O I&R <td>E CG 12- LEAD</td><td>Routine</td><td>04/27/2020 11:31 AM EDT</td><td> Nonrheumatic aortic valve insufficiency</td><td></td> 04/27/2020 03:31:21 PM EDT Nonrheumatic aortic valve insufficiency [facility] Nonrheumatic aortic valve insufficiency NT PRO BNP <td>NT PRO BNP</td><td>Routi ne</td><td>04/27/2020 11:20 AM EDT</td><td> Nonrheumatic aortic valve insufficiency</td><td> </td> 04/27/2020 03:20:00 PM EDT Nonrheumatic aortic valve insufficiency [facility] Nonrheumatic aortic valve insufficiency THROMBOPLASTIN TIME PARTIAL PLASMA/WHOLE BLOOD <td>APTT</td><td>Routine</td><td>04/27/2020 11:20 AM EDT</td><td> Nonrheumatic aortic valve insufficiency</td><td> </td> 04/27/2020 03:20:00 PM EDT Nonrheumatic aortic valve insufficiency [facility] Nonrheumatic aortic valve insufficiency PROTHROMBIN TIME <td>PROTIME-INR</td><td>Rout ine</td><td>04/27/2020 11:20 AM EDT</td><td> Nonrheumatic aortic valve insufficiency</td><td> </td> 04/27/2020 03:20:00 PM EDT Nonrheumatic aortic valve insufficiency [facility] Nonrheumatic aortic valve insufficiency BLOOD COUNT COMPLETE AUTO&AUTO DIFRNTL WBC COUNT <td>C BC AND DIFFERENTIAL</td><td>Routine</td><td>04/27/2020 11:20 AM EDT</td><td> Nonrheumatic aortic valve insufficiency</td><td> </td> 04/27/2020 03:20:00 PM EDT Nonrheumatic aortic valve insufficiency [facility] Nonrheumatic aortic valve insufficiency HEMOGLOBIN GLYCOSYLATED A1C <td>HEMOGLOBIN A1C</td><td>Routine</td><td>04/27/2020 11:20 AM EDT</td><td> Nonrheumatic aortic valve insufficiency</td><td> </td> 04/27/2020 03:20:00 PM EDT Nonrheumatic aortic valve insufficiency [facility] Nonrheumatic aortic valve insufficiency COMPREHENSIVE METABOLIC PANEL <td>COMPREHENSIVE METABO LIC PANEL</td><td>Routine</td><td>04/27/2020 11:20 AM EDT</td><td> Nonrheumatic aortic valve insufficiency</td><td> </td> 04/27/2020 03:20:00 PM EDT Nonrheumatic aortic valve insufficiency [facility] Nonrheumatic aortic valve insufficiency POC ARTERIAL BLOOD GAS <td>POC ARTERIAL BLOOD GAS</td><td>Routine</td><td>04/02/2020 12:51 PM EST</td><td></td><td> </td> 04/02/2020 05:51:00 PM EST [facility] ECG ROUTINE ECG W/LEAST 12 LDS W/I&R <td>POCT AMB EKG</td><td>Routine</td><td>03/15/2020 11:12 AM EST</td><td> Aortic valve stenosis, etiology of cardiac valve disease unspecified</td><td> </td> 03/15/2020 04:12:00 PM EST Aortic valve stenosis, etiology of cardiac valve disea se unspecified [facility] Aortic valve stenosis, etiology of cardi [...] stenosis, etiology of cardiac valve disease unspecified [facility] Cigarette smoker Essential hypertension Hyperlipidemia, unspecified hyperlipidem ia type Peripheral vascular disease Aortic valve stenosis, etiology of cardi ac valve disease unspecified ECG ROUTINE ECG W/LEAST 12 LDS TRCG ONLY W/O I&R <td>E CG 12- LEAD</td><td>Routine</td><td>02/24/2020 6:33 AM EST</td><td></td><td></td> 02/24/2020 11:33:08 AM EST [facility] BLOOD COUNT COMPLETE AUTOMATED <td>CBC</td><td>STAT</t d><td>02/24/2020 6:31 AM EST</td><td></td><td> </td> 02/24/2020 11:31:00 AM EST [facility] BASIC METABOLIC PANEL CALCIUM TOTAL <td>BASIC METABOLI C PANEL</td><td>STAT</td><td>02/24/2020 6:31 AM EST</td><td></td><td> </td> 02/24/2020 11:31:00 AM EST [facility] ECG ROUTINE ECG W/LEAST 12 LDS W/I&R <td>POCT AMB EKG</td><td>Routine</td><td>02/09/2020 2:34 PM EST</td><td> Aortic valve stenosis, etiology of cardiac valve disease unspecified</td><td> </td> 02/09/2020 07:34:00 PM EST Aortic valve stenosis, etiology of cardiac valve disea se unspecified [facility] Aortic valve stenosis, etiology of cardi ac valve disease unspecified Results ID Date Data Source BREAST U/S UNILATERAL COMPLETE 10/10/2020 12:00:00 AM EDT eC W1 ([facility]) Name Value Range Interpretation Code Description Data Debbie rce(s) Supporting Document(s) BREAST U/S UNILATERAL COMPLETE eCW1 ([facility]) ID Date Data Source FERRITIN 10/08/2020 12:00:00 AM EDT eCW1 ([facility]) Name Value Range Interpretation Code Description Data Debbie rce(s) Supporting Document(s) 94 26-388 FERRITIN eCW1 ([facility]) ID Date Data Source IRON (FE) 10/08/2020 12:00:00 AM EDT eCW1 ([facility]) Name Value Range Interpretation Code Description Data Debbie rce(s) Supporting Document(s) 83 65-175 IRON (FE) eCW1 ([facility]) ID Date Data Source Comprehensive Metabolic Profile (CMP) 10/08/2020 12:00:00 AM EDT eCW1 ([facility]) Name Value Range Interpretation Code Description Data Debbie rce(s) Supporting Document(s) 116 70-100 GLUCOSE, FASTING eCW1 ([facility]) 10 7-18 BLOOD UREA NITROGEN eCW1 ([facility]) 0.71 0.70-1.30 CREATININE FOR GFR eCW1 ([facility]) 135 136-145 SODIUM LEVEL eCW1 ([facility]) > 60.0 >49 GLOMERULAR FILTRATION RATE eCW 1 ([facility]) 4.3 3.5-5.1 POTASSIUM SERUM eCW1 ([facility]) 32 21-32 CARBON DIOXIDE LEVEL eCW1 ([facility]) 9.7 8.8-10.2 CALCIUM LEVEL eCW1 ([facility]) 96 98-107 CHLORIDE LEVEL eCW1 ([facility]) 36 7-37 AST/SGOT eCW1 ([facility]) 50 12-78 ALT/SGPT eCW1 ([facility]) 7.3 6.4-8.2 TOTAL PROTEIN eCW1 ([facility]) 148 45-117 ALKALINE PHOSPHATASE eCW1 ([facility]) 0.6 0.2-1.0 BILIRUBIN,TOTAL eCW1 ([facility]) 1.3 ALBUMIN/GLOBULIN RATIO eCW1 ([facility]) 4.1 3.2-5.2 ALBUMIN eCW1 ([facility]) ID Date Data Source CPK CREATINE PHOSPHOKINASE 10/08/2020 12:00:00 AM EDT eCW1 ( [facility]) Name Value Range Interpretation Code Description Data Debbie rce(s) Supporting Document(s) 186 39-308 CPK CREATINE PHOSPHOKINASE eCW 1 ([facility]) ID Date Data Source CBC with Differential 10/08/2020 12:00:00 AM EDT eCW1 ([facility]) Name Value Range Interpretation Code Description Data Debbie rce(s) Supporting Document(s) 7.7 4.0-10.0 WHITE BLOOD COUNT eCW1 ([facility]) 16.8 13.5-17.5 HEMOGLOBIN eCW1 ([facility]) 5.38 4.30-6.10 RED BLOOD COUNT eCW1 ([facility]) 31.2 27.0-33.0 MEAN CORPUSCULAR HEMOGLOB IN eCW1 ([facility]) 48.0 42.0-52.0 HEMATOCRIT eCW1 ([facility]) 89.2 80.0-96.0 MEAN CORPUSCULAR VOLUME e CW1 ([facility]) 14.6 11.5-14.5 RED CELL DISTRIBUTION WID TH eCW1 ([facility]) 35.0 32.0-36.5 MEAN CORPUSCULAR HGB CONC eCW1 ([facility]) 319 150-450 PLATELET COUNT, AUTOMATED eCW1 ([facility]) 17.7 24.0-44.0 LYMPH % eCW1 ([facility]) 67.4 36.0-66.0 NEUTROPHILS % eCW1 ([facility]) 12.7 2.0-8.0 MONO % eCW1 ([facility]) 0.6 0.0-1.0 BASO % eCW1 ([facility]) 5.2 1.5-8.5 NEUTROPHILS # eCW1 ([facility]) 0.8 0.0-3.0 EOS % eCW1 ([facility]) 1.4 1.5-5.0 LYMPH # eCW1 ([facility]) 1.0 0.0-0.8 MONO # eCW1 ([facility]) 0.1 0.0-0.5 EOS # eCW1 ([facility]) 0.1 0.0-0.2 BASO # eCW1 ([facility]) ID Date Data Source LIPID PANEL (CARDIAC RISK) 10/08/2020 12:00:00 AM EDT eCW1 ( [facility]) Name Value Range Interpretation Code Description Data Debbei rce(s) Supporting Document(s) Triglyceride [Mass/volume] in Serum or Plasma by calculation 100 <150 TRIGLYCERIDES LEVEL eCW1 ([facility]) Cholesterol [Moles/volume] in Serum or Plasma 181 <200 CHOLESTEROL LEVEL eCW1 ([facility]) Cholesterol in HDL [Moles/volume] in Serum or Plasma 54 >40 HDL CHOLESTEROL eCW1 ([facility]) Cholesterol in LDL [Mass/volume] in Serum or Plasma by calculation 107 <100 LDL CHOLESTEROL [facility] ([facility]) 127 NON-HDL-C eCW1 ([facility]) 3.351 <5 CHOLESTEROL RISK RATIO eCW ([facility]) ID Date Data Source FREE T4 & TSH PANEL 10/08/2020 12:00:00 AM EDT eCW1 ([facility]) Name Value Range Interpretation Code Description Data Debbie rce(s) Supporting Document(s) 1.310 0.358-3.740 THYROID STIMULATING HORM ONE eCW1 ([facility]) 0.84 0.76-1.46 FREE T4 eCW1 ([facility]) ID Date Data Source VITAMIN B12 LEVEL 08/07/2020 12:00:00 AM EDT eCW1 ([facility]) Name Value Range Interpretation Code Description Data Debbie rce(s) Supporting Document(s) [phone] VITAMIN B12 LEVEL eCW1 ([facility]) ID Date Data Source [id number] 08/07/2020 12:00:00 AM EDT eCW1 ([facility]) Name Value Range Interpretation Code Description Data Debbie rce(s) Supporting Document(s) Hemoglobin A1c/Hemoglobin.total in Blood 5.4 HEMOGLOBIN A1c eCW1 ([facility]) ID Date Data Source [id number] 05/18/2020 10:46:01 AM [facility]T [facility] INFORMATIONPatient MRN Name Date of Age Gend*PT [id number] Hiral Ferreira 1960 60 years M ---PT Location Admission Date/Time Visit ID Attending Provider --- --- --- --- EPI ID CSN Admitting Provider [id number] ---Cardiothoracic Surgery Post Operative Follow UpName: Hiral Ferreira : 1960MRN: [id number] Visit Date: May 18SSESSMENT:Patient is 2 weeks s/p AVR. From a cardiac surgery standpoint, patient is doingwell. VSS and incisions are healed.PLAN:-No lifting, pushing, or pulling > 15 lbs x 6 weeks from surgery date.-The patient was educated on endocarditis prophylaxis.-call with any concerns regarding incisions, fevers, or chillsFollow up with Family Services Specialist: Dr. Villaseñor and PCP: Rob Parr (Vascular) [...] pain or palpitations. Patient hasfollowed up with bilingual call center representative who is managing and following lab work [...] moderate (CAROLA 1.3cm2, mean gradient 23mmHg) - [facility] Echocardiogram 01/08/2016 Normal LV size with [...] Laterality: N/A; CERVICAL FUSION 2003 COLONOSCOPY 04/06/2020 [facility] Dr Wilhelm. Preparation of the colon was fair. Four non-bleeding colonicangioectasias. Treated with argon plasma coagulation. perianal skin tags.Diverticulosis in the sigmoid colon and descending colon. sm all internalhemorrhoids. ESOPHAGOGASTRODUODENOSCOPY 04/06/2020 [facility] Dr Wilhelm. Normal esophagus, normal stomach. Two [...] rce(s) Supporting Document(s) ID Date Data Source [id number] 05/13/2020 09:30:13 PM [facility] Name Date of Age Gend*PT [id number] Hiral Ferreira 1960 60 years M IPPT Location Admission Date/Time Visit ID Attending [id number] 05/02/20 0524 --- --- EPI ID CSN Admitting Provider [id number] Oneil Genao MD([id number]) [place] [address] OPERATIVE REPORT OPNAME: HIRAL FERREIRA Elke Smith#: [id number] #: [id number] ADMISSION DATE: 05/02/2020OB: 1960 SEX: M PT TYPE: I SURACCT #: [id number] CARE PHYSICIAN: ROB DIXONDATE OF OPERATION: 0 05/02/2020URGEON:Oneil Genao MD.BAG END SEWER:RAND Peralta.PREOPERATIVE DIAGNOSIS:Aortic valve stenosis and aortic regurgitation.POSTOPERATIVE [...] anesthesia was achieved. The patient had a Gorham-Ganzcatheter, radial arterial line placed. He was then sterilized and drapedin standard surgical fashion. We then performed a small thoracotomyincision in the second intercostal space and the right lung was deflated.Pericardium was then opened. Considering the patient has significantperipheral vascular disease; therefore, we decided to direct the cannula tothe ascending aorta. A 17-[employer]e [employer] cannula was then usedSeldinger technique with [...] stable upon finishing surgery.BRENNEN Ladd/NTS Job #: [id number] DOC #: [id number]: MD Marla Reyna MD Name Value Range Interpretation Code Description Data Debbie rce(s) Supporting Document(s) ID Date Data Source [id number] 05/13/2020 09:27:42 PM EDT [facility]FORMATIONPatient MRN Name Date of Age Gend*PT [id number] Hiral Ferreira 1960 60 years M IPPT Location Admission Date/Time Visit ID Attending [id number] 05/02/20 0524 --- --- EPI ID CSN Admitting Provider [id number] Oneil Genao MD([id number]) Attestation signed by Oneil Genao MD at 05/13/2020 9:27 PMI saw and evaluated the patient and reviewed Hiral's note. I agree with thehistory, physical and medical decision makingSignature: THEODORA Laddate: May 13, 2020Time: 9:27 PM --Surgical Discharge SummaryHiral StallworthN: [id number] date: 05/02/2020dmitting Physician: THEODORA Laddischarge date and time:Discharge Orders Placed(From admission, onward) NoneDischarge Physician: Darian Sky Diagnosis: Nonrheumatic aortic valve insufficiencySecondary Diagnoses:Active Hospital Problems Diagnosis Date Noted Nonrheumatic aortic valve insufficiency 02/28/2020 Added automatically from request for surgery [id number] Hospital ProblemsNo resolved problems to display.Discharge Medications: [...] [facility]. [facility] [...] restarted in a couple of months if needed.[facility] sent off to see if patient has [...] moderate (CAROLA 1.3cm2, mean gradient 23mmHg) - [facility] Echocardiogram 01/08/2016 Normal LV size with [...] view CXRFindings: The endotracheal tube, nasogastric tube, Gorham-Julia catheter, chesttubes have been removed. There is [...] rce(s) Supporting Document(s) ID Date Data Source [id number] 05/06/2020 12:42:45 PM EDT [facility] Name Value Range Interpretation Code Description Data Debbie rce(s) Supporting Document(s) STOOL OCCULT BLOOD (NEG) [facility] ID Date Data Source [id number] 05/06/2020 03:34:16 AM EDT [facility] Name Value Range Interpretation Code Description Data Debbie rce(s) Supporting Document(s) MAGNESIUM 2.5 mg/dL (1.7-2.4) H [facility] ID Date Data Source [id number] 05/06/2020 03:34:16 AM EDT [facility] Name Value Range Interpretation Code Description Data Debbie rce(s) Supporting Document(s) SODIUM 137 mmol/L (136-145) [facility] POTASSIUM 3.8 mmol/L (3.6-5.2) [facility] CHLORIDE 103 mmol/L (100-108) [facility] CO2 28 mmol/L (22-31) [facility] ANION GAP 6 mmol/L (7-16) L [facility] UREA NITROGEN 19 mg/dL (7-24) [facility] CREATININE 0.75 mg/dL (0.80-1.30) L [facility] BUN/CREAT RATIO 25.3 RATIO (10.0-20.0) H [facility] GLUCOSE 91 mg/dL (70-99) [facility] CALCIUM 8.1 mg/dL (8.4-10.2) L [facility] GFR >60 ml/min/1.73m2 (>59) [facility] GFR ( AMER) >60 ml/min/1.73m2 (>59) [facility] GFR INTERPRETATION [facility] --NORMAL KIDNEY FUNCTION OR MILD DISEASE - GFR >OR= 60CHRONIC KIDNEY DISEASE - GFR 15 - 59RENAL FAILURE - GFR <15 Est. GFR calculation based on the MDRDstudy equation, which assumes a steadystate for creatinine. Est. GFR should notbe used for medication dosing. ID Date Data Source [id number] 05/06/2020 03:10:40 AM EDT [facility] Name Value Range Interpretation Code Description Data Debbie rce(s) Supporting Document(s) WBC 7.4 10*3/uL (4.1-11.0) [facility] RBC 3.03 10*6/uL (4.60-6.10) L [facility] HGB 7.6 g/dL (13.5-18.0) L [facility] HCT 23.0 % (41.0-53.0) L [facility] MCV 76.1 fL (80.0-95.0) L [facility] MCH 25.1 pg (27.0-32.0) L [facility] MCHC 33.1 g/dL (32.0-36.0) [facility] RDW 19.2 % (10.5-14.5) H [facility] PLT 274 10*3/uL (150-450) [facility] MPV 7.0 fL (7.1-10.7) L [facility] ID Date Data Source [id number] 05/05/2020 01:29:39 PM EDT [facility] Name Value Range Interpretation Code Description Data Debbie rce(s) Supporting Document(s) POC NOVA GLU 95 mg/dL (70-99) [facility] ID Date Data Source [id number] 05/05/2020 08:33:12 AM EDT [facility] Name Value Range Interpretation Code Description Data Debbie rce(s) Supporting Document(s) POC NOVA GLU 75 mg/dL (70-99) [facility] ID Date Data Source [id number] 05/05/2020 07:27:48 AM EDT [facility] Name Value Range Interpretation Code Description Data Debbie rce(s) Supporting Document(s) HCT 23.2 % (41.0-53.0) L [facility] ID Date Data Source [id number] 05/05/2020 07:27:48 AM EDT [facility] Name Value Range Interpretation Code Description Data Debbie rce(s) Supporting Document(s) HGB 7.8 g/dL (13.5-18.0) L [facility] ID Date Data Source [id number] 05/05/2020 03:57:22 AM EDT [facility] Name Value Range Interpretation Code Description Data Debbie rce(s) Supporting Document(s) WBC 7.4 10*3/uL (4.1-11.0) [facility] RBC 2.83 10*6/uL (4.60-6.10) L [facility] HGB 7.1 g/dL (13.5-18.0) L [facility] HCT 21.5 % (41.0-53.0) L [facility] MCV 75.9 fL (80.0-95.0) L [facility] MCH 25.0 pg (27.0-32.0) L [facility] MCHC 33.0 g/dL (32.0-36.0) [facility] RDW 19.0 % (10.5-14.5) H [facility] PLT 212 10*3/uL (150-450) [facility] MPV 7.0 fL (7.1-10.7) L [facility] ID Date Data Source [id number] 05/05/2020 03:54:56 AM EDT [facility] Name Value Range Interpretation Code Description Data Debbie rce(s) Supporting Document(s) MAGNESIUM 2.5 mg/dL (1.7-2.4) H [facility] ID Date Data Source [id number] 05/05/2020 03:54:56 AM EDT [facility] Name Value Range Interpretation Code Description Data Debbie rce(s) Supporting Document(s) SODIUM 135 mmol/L (136-145) L [facility] POTASSIUM 4.0 mmol/L (3.6-5.2) [facility] CHLORIDE 98 mmol/L (100-108) L [facility] CO2 29 mmol/L (22-31) [facility] ANION GAP 8 mmol/L (7-16) [facility] UREA NITROGEN 26 mg/dL (7-24) H [facility] CREATININE 0.98 mg/dL (0.80-1.30) [facility] BUN/CREAT RATIO 26.5 RATIO (10.0-20.0) H [facility] GLUCOSE 86 mg/dL (70-99) [facility] CALCIUM 7.8 mg/dL (8.4-10.2) L [facility] GFR >60 ml/min/1.73m2 (>59) [facility] GFR ( AMER) >60 ml/min/1.73m2 (>59) [facility] GFR INTERPRETATION [facility] --NORMAL KIDNEY FUNCTION OR MILD DISEASE - GFR >OR= 60CHRONIC KIDNEY DISEASE - GFR 15 - 59RENAL FAILURE - GFR <15 Est. GFR calculation based on the MDRDstudy equation, which assumes a steadystate for creatinine. Est. GFR should notbe used for medication dosing. ID Date Data Source [id number] 05/04/2020 05:10:52 PM EDT [facility] Name Value Range Interpretation Code Description Data Debbie rce(s) Supporting Document(s) POC NOVA GLU 76 mg/dL (70-99) [facility] ID Date Data Source [id number] 05/04/2020 10:36:35 AM EDT [address] [id number] Name: NICOLÁS GROVERDOB: 1960ex: MOrdering Provider: HIRAL Light Prov: HIRAL Finley Provider: Procedure Performed: XR CHEST PA AND LATERALExam Date: 05/04/2020 10:32MRN: [id number] Number: [id number] Class: InpatientAccount #: [id number] for Exam: s/p CT removalTechnique: PA and lateral views obtained.Comparison: May 02, 2020Findings: The endotracheal tube, nasogastric tube, Gorham-Julia catheter, chest tubes have been removed. There [...] DANE DAS On 05/04/2020 10:36 AMWorkstation ID: [id number] Name Value Range Interpretation Code Description Data Debbie rce(s) Supporting Document(s) ID Date Data Source [id number] 05/04/2020 09:42:41 AM EDT [facility] Name Value Range Interpretation Code Description Data Debbie rce(s) Supporting Document(s) POC NOVA GLU 103 mg/dL (70-99) H [facility] ID Date Data Source [id number] 05/04/2020 06:26:43 AM EDT [facility] Name Value Range Interpretation Code Description Data Debbie rce(s) Supporting Document(s) EKG [facility] YULKSr3nVwNLDzQlb5JvIbDvVPNfIK9vmag1E9T1wMIbG7EyhPFur6zzD4HvC7QxDQSpKIOXLQ7UiYKs jb2 [file] Yo+dxQA6c4QYVBA+0IwRztgPnjECGvtBNEZIYz [file] e2d14Aa2486a968M9xz061FjXmv27V+P4VB6CkbHLv 0iUHSrgvgkXISOtP1YggQehIhTw1mhHfuf74JtaeUfH4PVKjdzyR3d9s2BRGYVxURQIyDvK83QhK+C4x Nadeem+itgSR705+OVE135GX0kvlaQK6+q7BC463XhdqBzL+/YUuSC+u7MX5L/keLAvfO+M7/SfFH8FM0e8 CaVK6nw82JUxbR31tQ/kzN+fTwyiUVdSdHhM14RorU v+uds1l3iecI3yWwH21xKbzeO52auhbn6Wf4vgfFKpwKM8We7l8wRgsE7TxkivMYLnnCuFpapxnNJaBF UsnAbwsmWiqBMeuIlCYedG8zXoWAnM06M8aZKY6Vl+y2U+A2Z9m+hOObKhAAG0aEgSN2FC/zPbk7Q1B/ qxRDqjZyI5TdnMU/Muv5P6nShRBX+EU+YJueSTmv+C l6pq9TcLM+/M8R7pCxtkKV+96zx71/X4cCayw22nnQ9Mja9l3f+3r8LT/JfbNf/Bird/Ssl/g3UfZs+y3 a/4X2gm20dUW+KFqN5si/pEI7yZq67I/+b4Ie5vpDiKjssydJORuJPy5sQo2XZ4/REWa4KU/Q+MvN/MZ 1OvuKYYp3/jluy1lam+QPM1/iX/kSVaEOMNMqqzhlj 8i1xVplNEdIsx7p/nSl44sTN4PF7MGQ8uBY9E8eDbQ94LrA37Xgboxwfm9a1ik43jTvl3k6aQCkr3Uq0 Ui5iiztpsuLbFK5dD/8S71Gy/kYStB6e9Jmi3elacVbu0htetOz0erPM5U2mh3lW0/iXdzLruMtwvvlD 5P6dPL+ivH19zx9T+0iOgcHYqp31qx81l3/nJN/elr XF9Eq6YaGi/vTq4tx6rvUePnm/JQ0MNijIUYyr0XO0HlQhmfX9OO0lFaFb/hMp8hn+yFV+CkIc8z4dDd Hyif3U0x+rJX4al/kDlJjKGqVWCpGRD2CczsV+NxWYa4ve++oPbXN4q+Yj4D3/TR+Mst+vp97M6Qx3b+ [place]/3RMp5jTLd+jLKfpyilxOkcvR+wGX+TbfW8ZhMh [file] AwMDAgbiAKMDAwMDAwMTYwOSAwMDAwMCBuIAowMDAw PZXdObO5ZZEbTBOdYE1zLfBoDWZqZML5VQVmUTJuEOGhgyFQUHCoRGLrRXU4YvOfLCSlFTWwCJyzVHKz NUS0GrDhFKZmQIQdTP7pGqUvNYPcNAq4ReUhHTEeEFSpxnDMRDYmVGFvUHZ0TwUfXAIeWQYaNOqgACQh NGAtPKUqJNC8VEF9UZSnPlIsYEkiHYYXXAlGU4Dzdu RpDgqLW7pkIt5dPnBoSXDWH6Yvy3DjOXPgCGJXVd7+RvU4WVQ5mONcJehiWWC9VqaNKOOXX8R= ID Date Data Source [id number] 05/04/2020 03:27:07 AM EDT [facility] Name Value Range Interpretation Code Description Data Debbie rce(s) Supporting Document(s) MAGNESIUM 2.9 mg/dL (1.7-2.4) H [facility] ID Date Data Source [id number] 05/04/2020 03:27:07 AM EDT [facility] Name Value Range Interpretation Code Description Data Debbie rce(s) Supporting Document(s) SODIUM 135 mmol/L (136-145) L [facility] POTASSIUM 3.9 mmol/L (3.6-5.2) [facility] CHLORIDE 100 mmol/L (100-108) [facility] CO2 27 mmol/L (22-31) [facility] ANION GAP 8 mmol/L (7-16) [facility] UREA NITROGEN 29 mg/dL (7-24) H [facility] CREATININE 1.26 mg/dL (0.80-1.30) [facility] BUN/CREAT RATIO 23.0 RATIO (10.0-20.0) H [facility] GLUCOSE 107 mg/dL (70-99) H [facility] CALCIUM 8.3 mg/dL (8.4-10.2) L [facility] GFR 58 ml/min/1.73m2 (>59) L [facility] GFR ( AMER) >60 ml/min/1.73m2 (>59) [facility] GFR INTERPRETATION [facility] --NORMAL KIDNEY FUNCTION OR MILD DISEASE - GFR >OR= 60CHRONIC KIDNEY DISEASE - GFR 15 - 59RENAL FAILURE - GFR <15 Est. GFR calculation based on the MDRDstudy equation, which assumes a steadystate for creatinine. Est. GFR should notbe used for medication dosing. ID Date Data Source [id number] 05/04/2020 02:58:40 AM EDT [facility] Name Value Range Interpretation Code Description Data Debbie rce(s) Supporting Document(s) WBC 11.2 10*3/uL (4.1-11.0) H [facility] RBC 3.18 10*6/uL (4.60-6.10) L [facility] HGB 8.0 g/dL (13.5-18.0) L [facility] HCT 24.2 % (41.0-53.0) L [facility] MCV 75.9 fL (80.0-95.0) L [facility] MCH 25.3 pg (27.0-32.0) L [facility] MCHC 33.3 g/dL (32.0-36.0) [facility] RDW 19.6 % (10.5-14.5) H [facility] PLT 219 10*3/uL (150-450) [facility] MPV 6.8 fL (7.1-10.7) L [facility] ID Date Data Source [id number] 05/03/2020 06:30:48 PM EDT [facility] Name Value Range Interpretation Code Description Data Debbie rce(s) Supporting Document(s) POC NOVA GLU 135 mg/dL (70-99) H [facility] BY [facility] ID Date Data Source [id number] 05/03/2020 11:29:43 AM EDT [facility] Name Value Range Interpretation Code Description Data Debbie rce(s) Supporting Document(s) POC NOVA GLU 160 mg/dL (70-99) [facility] [place] [facility] ID Date Data Source [id number] 05/03/2020 07:26:38 AM EDT [facility] Name Value Range Interpretation Code Description Data Debbie rce(s) Supporting Document(s) POC NOVA GLU 197 mg/dL (70-99) [facility] [place] [facility] ID Date Data Source [id number] 05/03/2020 02:27:29 AM EDT [facility] Name Value Range Interpretation Code Description Data Debbie rce(s) Supporting Document(s) POC NOVA GLU 166 mg/dL (70-99) [facility] ID Date Data Source [id number] 05/03/2020 03:11:40 AM EDT [facility] Name Value Range Interpretation Code Description Data Debbie rce(s) Supporting Document(s) MAGNESIUM 2.6 mg/dL (1.7-2.4) [facility] ID Date Data Source [id number] 05/03/2020 03:11:40 AM EDT [facility] Name Value Range Interpretation Code Description Data Debbie rce(s) Supporting Document(s) SODIUM 137 mmol/L (136-145) [facility] POTASSIUM 4.2 mmol/L (3.6-5.2) [facility] CHLORIDE 104 mmol/L (100-108) [facility] CO2 25 mmol/L (22-31) [facility] ANION GAP 8 mmol/L (7-16) [facility] UREA NITROGEN 18 mg/dL (7-24) [facility] CREATININE 0.91 mg/dL (0.80-1.30) [facility] BUN/CREAT RATIO 19.8 RATIO (10.0-20.0) [facility] GLUCOSE 164 mg/dL (70-99) [facility] CALCIUM 8.3 mg/dL (8.4-10.2) L [facility] GFR >60 ml/min/1.73m2 (>59) [facility] GFR ( AMER) >60 ml/min/1.73m2 (>59) [facility] GFR INTERPRETATION [facility] --NORMAL KIDNEY FUNCTION OR MILD DISEASE - GFR >OR= 60CHRONIC KIDNEY DISEASE - GFR 15 - 59RENAL FAILURE - GFR <15 Est. GFR calculation based on the MDRDstudy equation, which assumes a steadystate for creatinine. Est. GFR should notbe used for medication dosing. ID Date Data Source [id number] 05/03/2020 03:01:38 AM EDT [facility] Name Value Range Interpretation Code Description Data Debbie rce(s) Supporting Document(s) CALCIUM IONIZED 4.92 mg/dL (4.64-5.28) [facility] IONIZED CALCIUM NORMALIZED TO PH 7.40 AN D 37 DEGREES C. ID Date Data Source [id number] 05/03/2020 02:46:00 AM EDT [facility] Name Value Range Interpretation Code Description Data Debbie rce(s) Supporting Document(s) WBC 13.1 10*3/uL (4.1-11.0) H [facility] RBC 3.72 10*6/uL (4.60-6.10) L [facility] HGB 9.3 g/dL (13.5-18.0) L [facility] HCT 28.1 % (41.0-53.0) L [facility] MCV 75.7 fL (80.0-95.0) L [facility] MCH 25.0 pg (27.0-32.0) L [facility] MCHC 33.1 g/dL (32.0-36.0) [facility] RDW 19.7 % (10.5-14.5) H [facility] PLT 331 10*3/uL (150-450) [facility] MPV 6.6 fL (7.1-10.7) L [facility] ID Date Data Source [id number] 05/03/2020 12:19:27 AM EDT [facility] Name Value Range Interpretation Code Description Data Debbie rce(s) Supporting Document(s) POC NOVA GLU 160 mg/dL (70-99) H [facility] ID Date Data Source [id number] 05/02/2020 11:17:34 PM EDT [facility] Name Value Range Interpretation Code Description Data Debbie rce(s) Supporting Document(s) POTASSIUM 4.9 mmol/L (3.6-5.2) [facility] ID Date Data Source [id number] 05/02/2020 10:41:02 PM EDT [facility] Name Value Range Interpretation Code Description Data Debbie rce(s) Supporting Document(s) WBC 10.0 10*3/uL (4.1-11.0) [facility] RBC 3.68 10*6/uL (4.60-6.10) L [facility] HGB 9.2 g/dL (13.5-18.0) L [facility] HCT 28.3 % (41.0-53.0) L [facility] MCV 76.9 fL (80.0-95.0) L [facility] MCH 25.1 pg (27.0-32.0) L [facility] MCHC 32.6 g/dL (32.0-36.0) [facility] RDW 19.6 % (10.5-14.5) H [facility] PLT 319 10*3/uL (150-450) [facility] MPV 6.9 fL (7.1-10.7) L [facility] ID Date Data Source [id number] 05/02/2020 10:08:54 PM EDT [facility] Name Value Range Interpretation Code Description Data Debbie rce(s) Supporting Document(s) POC NOVA GLU 153 mg/dL (70-99) H [facility] ID Date Data Source [id number] 05/02/2020 08:21:53 PM EDT [facility] Name Value Range Interpretation Code Description Data Debbie rce(s) Supporting Document(s) POC NOVA GLU 158 mg/dL (70-99) H [facility] ID Date Data Source [id number] 05/02/2020 08:10:20 PM EDT [facility] Name Value Range Interpretation Code Description Data Debbie rce(s) Supporting Document(s) POC SOURCE [facility] PUNCTURE SITE [facility] O2 THERAPY [facility] POC FIO2 45 [facility] PAUL TEST [facility] MODE [facility] PEEP/MAP 6 CM H2O [facility] PRESSURE SUPPORT 8 CM H2O [facility] SP RATE 10 BMP [facility] POC PH 7.38 pH (7.35-7.45) [facility] POC PCO2 42.7 MMHG (32.0-48.0) [facility] POC PO2 81 MMHG (83-108) L [facility] POC SAT O2 96 % (95-99) [facility] POC BASE EXCESS 0 MMOL/L (0-3) [facility] POC HCO3 25.1 MMOL/L (21.0-29.0) [facility] POC TOTAL CO2 26 MMOL/L (23.0-32.0) [facility] ID Date Data Source [id number] 05/02/2020 07:19:47 PM EDT [facility] Name Value Range Interpretation Code Description Data Debbie rce(s) Supporting Document(s) POC NOVA GLU 151 mg/dL (70-99) H [facility] ID Date Data Source [id number] 05/02/2020 05:09:26 PM EDT [facility] Name Value Range Interpretation Code Description Data Debbie rce(s) Supporting Document(s) POC NOVA GLU 154 mg/dL (70-99) H [facility] ID Date Data Source [id number] 05/02/2020 06:46:17 PM EDT [facility] Name Value Range Interpretation Code Description Data Debbie rce(s) Supporting Document(s) POTASSIUM 4.7 mmol/L (3.6-5.2) [facility] ID Date Data Source [id number] 05/02/2020 03:19:45 PM EDT [facility] Name Value Range Interpretation Code Description Data Debbie rce(s) Supporting Document(s) POC NOVA GLU 142 mg/dL (70-99) H [facility] ID Date Data Source [id number] 05/04/2020 08:55:23 AM EDT [address] [address]Hde# Surgical Pathology ReportPatient Name: HIRAL FERREIRA: 1960Accession [...] 1.5 cm. Thespecimen is serially sectioned and fundraising sale representative sections are submittedas A1 following decalcification. [email or web address] Reported: 05/04/2020Electronically Signed Out By Jamari Carrasco MD [facility] [place] [address] [id number] component performed at [facility], [address] [place] [address], [phone].Reported at [facility], [address] [place] [address], [phone]. This report may includeimmunohistochemical or in-situ hybridization results. Testing wasdeveloped and the performance characteristics determined by [employer] as required by CLIA '88. The FDA hasdetermined that approval for specific use is not necessary for clinicaluse. The quality of Hematoxylin and Eosin stains and as applicable, forall immunohistochemical and/or special stains, including positive andnegative controls, were reviewed and considered appropriate.ICD codes I35.0CPT codesA: 60559C, 58015J Name Value Range Interpretation Code Description Data Debbie rce(s) Supporting Document(s) ID Date Data Source [id number] 05/02/2020 01:37:45 PM EDT [facility] Name Value Range Interpretation Code Description Data Debbie rce(s) Supporting Document(s) POC NOVA GLU 142 mg/dL (70-99) H [facility] ID Date Data Source [id number] 05/02/2020 01:19:02 PM EDT [address] [place], [place] [address]Ytglvwb Name: HIRAL ZAVALATRIOB: 1960ex: MOrdering Provider: ROGELIO Dennis FORDAuthorizing Prov: ROGELIO Dennis FORDReferring Provider: Procedure Performed: XR CHEST PORTABLEExam Date: 05/02/2020 13:15MRN: [id number] Number: [id number] Class: InpatientAccount #: [id number] for Exam: Evaluate for Gorham Julia catheter placement and/or endotracheal tubeTechnique: Single AP view obtained.Comparison: NoneFindings: The endotracheal tube and nasogastric tubes are in satisfactory position.Gorham-Julia catheter is in satisfactory position.Right-sided chest tubes are present. There is no evidence of pneumothorax.IMPRESSION: Lines and tubes are in satisfactory position.Report electronically signed by: FAUSTO DICKINSON On 05/02/2020 1:19 PMWorkstation ID: [id number] Name Value Range Interpretation Code Description Data Debbie rce(s) Supporting Document(s) ID Date Data Source [id number] 05/02/2020 01:25:49 PM EDT [facility] Name Value Range Interpretation Code Description Data Debbie rce(s) Supporting Document(s) POC SOURCE [facility] PUNCTURE SITE [facility] O2 THERAPY [facility] POC FIO2 80 [facility] PAUL TEST [facility] MODE [facility] TIDAL VOLUME 500 mL [facility] RATE 16 BPM [facility] PEEP/MAP 10 CM H2O [facility] PRESSURE SUPPORT 15 CM H2O [facility] SP RATE 0 BMP [facility] POC PH 7.31 pH (7.35-7.45) L [facility] POC PCO2 53.5 MMHG (32.0-48.0) H [facility] POC PO2 88 MMHG (83-108) [facility] P[facility] SAT O2 96 % (95-99) [facility] POC BASE EXCESS 0 MMOL/L (0-3) [facility] POC HCO3 26.7 MMOL/L (21.0-29.0) [facility] POC TOTAL CO2 28 MMOL/L (23.0-32.0) [facility] ID Date Data Source [id number] 05/02/2020 01:25:49 PM EDT [facility] Name Value Range Interpretation Code Description Data Debbie rce(s) Supporting Document(s) POC SOURCE [facility] CP BYPASS [facility] POC MIX ELLIS PO2 40 mm[Hg] (35-45) [facility] POC MIX ELLIS SO2 68 % (60-80) [facility] P[facility] HCT 30 % (41.0-53.0) L [facility] ID Date Data Source [id number] 05/02/2020 01:14:28 PM EDT [facility] Name Value Range Interpretation Code Description Data Debbie rce(s) Supporting Document(s) EKG [facility] GERIYb8gKiXIYvRnj6UuOsJzZQZmVL0xvof8S0P6jYDqV5JuzUBpy2ggI1CdD8PyFUWfJVYIHR6MtNEr jb2 [file] svp digital ad sales/K2x0rN5/0Tt5d6ddGi2CpA4ekFhEueizeX/9tlN4Giee6ZK11f0FoMSYAH4PihX7CHz39zwL9G3i6 [file] +uuMzT+m3Ftf3/2ahItzp00wuLb7+me1i++N7n/Jose Alfredo 5ukXFRPf+f1CCVvEK4ewQd+tKMu/079lo4jZc4Zf04wCConRIqzrw/u7HBnkhw/fneEqN/BVxOkN/P6+ 4+iMr8iF9Mb5EVZhWJ6gK8+v4/MR+CrDaG/gq+Rpcsxevzef2T46jzoTdkWlU/4pfQa+8vXLCHwVcQJf QC3Ox8CoMPVb2+48ZdWVexQaYZfM2hR7N40ugXSuQl yV/K167L9GkiDgIT9e+YHbike3Qv2sD1EqhAqJQfATle/ys4Lg2Ukl6/fDkRqu4O7Ep/YGvkq+IX8DH9 624KsNvhhEIn9KAtOyDp9ArTz+21G1O86seOX30qgGmvvs1VYqhAgOA8fs1mwF1cl6LngoxrI1vrdGNJ XOMlD9tf6pZQAW+OjPiu/r+OrmOZG/gq/gL/AX+Bv8 Fmz2fST73oAUwzsAmM+iOkidbD6lcbPatLye/Ax//QmLOY9WG+/1nvYMfxKtRb3Nz+Av5O/fxgGZg4Eo KNfbm+GD/E/tvpT59kzaNoj6TpsoCqObAlG/3Fv2TQ2VX01NSnPAJG+URalsRxlKrI3e8QEJE1o7mk4A Djy7G7QIQ9lZiciJc9Fj+zy2nSRtHWhBtMJUu6lL8E LyAfvVsLLnjLRfRZyhFWci/gRfW+WtGY2pbFg9YeDQy8SF1wjYJqe173yM4TQ22y3rp7K5kFH+ahnWCt s2sUxsN44C2lrdmm9mhDX+eHjMr/vSuJ9bQzYQ9dxEnO3n76Y7+Pq8r975RZ5poWdi2dCC4isV55q9um /6Jb+LH6bXV2NJkCSicN3Fk7O/EX+Od0ih87XkU/wF /kY+G/nY++2o5TzOq/efzsBXEb/XfOQ3+e6rIxTs9CNw+XW+S5tHP2narO/Bn+Nx5uiq3d4U7yj1v0S2 yy6pagG+zb+iy28JhrAW7YbG0U5V+XwoDEJG9uaIceVlOTjN+BN8fF/lidavx9A8hz4tZF7Pp6UpcZKs Nishant/k7whOArCuIzL0nw/mQHsH+kHY7v88amBqf9Q/D3 [file] wV+montessori paraprofessional+jXT8yDYv930/+NEqciglFdVIF49wnh73UmTp9ol5c/0OERI4rUJYT0PQ+AP5D/TU8PKKFn3HJg [file] NjLPJUWRDJTmnSKBSK5GBgQaoo5MCSL7gCxCswQWlq DefnLsPXzjTLxoMcHjpLKkqdSelvwqnHbzPsncWgmGri3EzzLdA4DmYCgJqPjScjYIdez3VpEYwPeYJM JHRICXBVPGIRDwVYMDmKmBNIZhTeRJtCnAfRUkltP8DctiCMOKNysGEHMlZSWWBPxY3VYKB8EVOVITKA XZXGfMARQWVLDT3cuYHNoiPndPqatHEhJkL6PPASpW ZLQLLoZjbIOTbTNpLHEi6ju8iUe5skjbUyWfinUnHrkuIT2B8caNzZYCO6DaSgbVAGeLpsXTBqUiHKDB JOpMVNLRPGCPfBHW5SBuJMY2cQfUBQ1w6dSuG9g2SK1G0j7OfQWUB1UoAmbH0WkFavJ6QgRdEIUGLYmY QXOTHlGXvLWNSEGdYYXVdIqYGNPhVuTcWTsGAX4R3t SiY0KpzvSTJzMcyU9N6jSfR3PrraPRYaLhpY6X5pWrL3VowpHVLaXmwS3R7qJnC3OritTZSxEubB5Y2s UmH6EdwoCRUyHlgG3J2bRtG4K+PmMPaPITGntE8+VWeU3rPTp9uBG/x5QHSjsNgF7tgb8f5RXQhossu5 jAAeH5ZOVTMU5hjw9YyWrYMkB7TNRQUN0qsk0FwFzM SeI4FTRLWK6qft3KwWgCPzI4EQUWEM8uro6GpLnLQaH8GUTTCO6omb7ZxVkLLxF5MUVRAJ4mfk2XbCpB VnP5BNNLMO9rto8RmMnXPoR6YAUZRO9axj3GgDuYYxD4YALOYM8qmw1KvYaCYvJ4KJNECS3lfc5OlTeI NzR4DCEZQZ6wwc0IsIfIZvF3LSDZAXza9ewN4C06hH dusTbcqLiNnT8Mv4qij3sPwSOnIM6ZQdImEsuZm3kYaZU6VP4hH8OtvJLLE4aQtMAPX3tBgMZRH7yHcO RFA7qRkZNIZ2qKrCQPQ4VtZu7Wkvv4N7tf7vckvykeoAgnk3KdvAwNbUmeZFHZdADDM9zZeGVOH2aKrC OMI3hNjPTXI3lc31yPukqyId2GqkstMv0OmllnCa1I celuSk1HhtnuMc8FruqpGx5LybonQp0Lbg0pVx8Bxx4tNg4Hbm4pKv1Ezi4iIa4Nae3sRk2NCIO1NyCJ 1ZbZZ3RtIt4Jvyw8K6tu4ereyphhf6bqq5jmdMuTnKvuXXBJzFIIUvNCGf2MBUg5LnKj2SbRe5KlLb7D vh4o6trxlHsoYkCQeaQmTVaVEgzsOc1ZwNEy26p161 su16b428um27b5Wv1Nm1wQfalgr/HJ+AA5Cr1Tv0pIv7CXt2vN32T5m7aqHTMwPisOU7jtReMOQc0EpW EVQPYkGKMYgGnZRFXxCmUffEiSMUwbIaJJRasScWFRLuRhsAJ1kZyrNTTcJluGL1qgUcUBWl3D+YVMMG SGIVMMmWPIJENmGTLNkHmGTDRkpiFTDZlryGRDZhsy 9WN8foq7AEZmQv0Av6hpS9EpZy2WxLhTUSOrRnI3Uwc7+5w41b8JwqlXrbOv98iJD8+UmWMNEJ6PUmHS ZKFwQxNSPjKh5ykLXSBUSTdZDNxCycgLBN4BvZrlLiLKYc0x4aiNDXyCR9l9vdPc4nVM7EofJoloLRQz 8AAMF77rYU8fhSc2NPyvQZ4FXKM3ZEjUSusFhqz3LV mHHoBZcrbvWcuxZ4W5SpdRFCdltctTFstSURez9oo2JwrUXEpm9hoIEkbKUN5h1bt7GwwZNQPfEqwZHq pQsEOROhTsUKQOBTsUqUPBDkW+x9lXFi6y4BaAWxKuUVIEEHtUyFYRFkUxAQZQmWfI5MWuVyT7BHdTnD 0A8aYrT2D6lTlf05u0n12I99nVU+KEmWCmMFOYKcwU JcMgLtAeAkOvKyKOrprSXoSb11thmDIqRbQgnz3BK6OgQuPvOkOlZiKgFNGmBrJp++srz5Trb5urWK2y m5eoNnlmu9wTerzXOmNocPdLgawAtaApxgdXbgyLrfMlnifaqkwK6gCGthOk/jEex6qkIrv+nab8+fag r+kPol+nDoL9YNC6ONfdxy0lw7l90mlmc7E9na/fPD /97lzb9p/geRM66Fxfy+OUo06dmnxusri6eei6/kxd8eIQ5f79T9tGXJVzG5SVwO4EfhmmHFNSB00gYP 28BM46toKH8+KWs8Fnz8bbE+9fzn1QZYMb4lXq1vy2I2JT8pzJN5+wzBZi/yIrJiS7z9UbZWmhejPy6V LWeha77KG64c7290wkp5lLh04/Dq/Pfr29/Lp+LS7P fz+7+DJ8/S9QSp03aty1GnchiH8roUFg8ML0iRrs5wpi+iirp5cVH7e2r0PYy+H0z6/fLq7u/4JRm1nm 7Woa0HF966B6Q+pM3h94dOhq72L7L1Y8rfA18kkKDvmM6i2C16JqL1L38o3zq95/qyt+683/nWqbj4sa 66lTW3Ah0kfB43+jtzhE7e/eGH+3/V34Ta31/G7408 mf6XcK0qus5yd/XX+ey1+ht07kWxfT7ppHi6AC96DBuXkytiV1Q81gmkZN1edD139jTzvkPUhPRirwwt dudrx/lv8qmk577Kj6aFwgk/nLd3K90ot+a81k5zB18JQ0cB6jq2aQFfky2c/w/P2+ljbevQc0/Hn78f snR++d5jjeS7qjhdWfj/44P/a1zSa8JU+8jR68gK2t 366St7zoa+contract processor/D7vzz3FklUBLWdn+lcti5cza/byJO1V8f29bpOYHy/jm75nj9Jo012b13/QnjRLvH1 94vZxr9/fvf+0pjxsfCl0tfqmDr6es2fqlFFt/hSvbjxgMQGwslFxO6yuq+CcnYvrcQ8TomsptYhiWvg 4h77SA20s86tuTdnl5pXiyE8MbUgtr0//Px+fWxdO2 5e0gYY6yj/GvgxSX1CFE5lx9UpCQVsYmLqXU8usdylTnSzVT1tqlh4W9OgfFqxXIpMKCQqOk1bsYTlLU 9VMIE5SYmaWSWxYVDjZ8SyfR4rX53beKBcPdnvMFZOVT2RDMArwqXkCaKwIDE+OqPoRM5tentfYCKqs0 UcQLrwFOgjOMOiV0Z6xNcdSQZmK8ApgC64PGHsW9Ra nwB9TSG1ADMmVoGmELJejZRvXsLsLUK+JoKmYC7lqaxiSETiq9EoZZcpJDT5nX8uLBlGJPEIIAxXTLmk WvY1j17qgpWGHJVyKRLsEV1EtiOiyAtiprJgkMAfCMT9DzUmBCMjGzYfSwV7IKAQWLIpFJNyIWAmNBXh R8NymBifLQbAGDUFIXyCOQpjIuZzl1V1MIVfcuXMFu 9PYIAzHL4CX3rARGzyIUQgOYy1Pjr7OIHuX3SlugEwrEJmJCQVLKxgJryzHLWtjG9fsTjkU1FaCCN9z5 BrOQ4HB7JzHZDvAGLHEQA5i1FqTIClutitfivgQcRkUILiMJYdGTOeEE7Zqh2vpXVfdgCgLBSIDAqnFv rpSH3wpIulcfdmP8VenSGwRHI+LuUxPR0svl1+CjEg ZYZsCgg4VLAfGFvvJBIjBUJbDUTlL1obXLYdDxTlEQQvCfUaQKXnHTSlOJTvG725khGqCc2+IW3ze6Cj EgkhRXOYFAIxCMPaEGUpTOH4ShMcXQOwMNZzRLHoRcF9ByOwDcETDJXkKNTpDLHsPRIjPAMuAZQkMGzi VUNhYSK9JOXwEURlYAQcTY0qJrEmTRCzIYF0GtRyZM TePTZtgcJXZDKlNNPsDSRxETT7WKPuEEIbDZpnEFSlMVNnTQK1TBKnSQRhYN4nOhGmYXOhACSwApgzEJ RtJGKtoqCGQVAwPIIvUXA9DwUnNCGhVJAgSXfeASAmXHCbOkv7JGYhGUEeAK0xElUxGJVsBWM2NIwfXC AwMDAgbiAKMDAwMDAwMDUyMyAwMDAwMCBuIAowMDAw ODJxTcPzITGiARTeYE9rOlClSAHnDMO8YRBcLBMhRAAwzaDKFBZgDNReXRt3EVWnOJLkEERmQXgwLRJl CCPlXVI5SLVoKOBvAJ0xDvAtKSXpCTGjVBRcZZJqKTJphjTHWMApIVYjGLL6HLDeOWHnHBPfJJaoQCBb LUBnCfu9ZYYoRWRsPU9iPxAzBIJoACB5BDYxTFEvIF EnxkSOFFAsJRWkQXS0CfYfLDPmFBKcASquXICdVCUpSzN7RPEmPBQdJI7uKkMbLULrOPS5NfEwJFVgTW JjfdUYSOXbDYOoCPC1ZkUpRCJqKYQzKIzxHJMyEDQ0AsX2TBEeTYDsYY8gGgZtNJYeBEJ7ODMjQJAcBL BkrjJJFUIfCYWtKXs8SWXbJCXvFVBbILknINJmJWRu Dqw1TPOlLPKkMT0hEpMwLURpNDEbAAOmOrC1UoLlSaEDkSThwDtszop4DSarL0z9KWBkAZvkUA7zjxLt FWTbWejrFg3jpKX4NUIxPbbGCm6Ny7IvruJ0qwRsEjZeMXSfXowsMQYKDz== ID Date Data Source [id number] 05/02/2020 01:10:42 PM EDT [facility] Name Value Range Interpretation Code Description Data Debbie rce(s) Supporting Document(s) POC NOVA GLU 145 mg/dL (70-99) H [facility] ID Date Data Source [id number] 05/02/2020 03:00:13 PM EDT [facility] Name Value Range Interpretation Code Description Data Debbie rce(s) Supporting Document(s) MAGNESIUM 3.5 mg/dL (1.7-2.4) H [facility] ID Date Data Source [id number] 05/02/2020 03:00:13 PM EDT [facility] Name Value Range Interpretation Code Description Data Debbie rce(s) Supporting Document(s) SODIUM 139 mmol/L (136-145) [facility] POTASSIUM 4.4 mmol/L (3.6-5.2) [facility] CHLORIDE 106 mmol/L (100-108) [facility] CO2 25 mmol/L (22-31) [facility] ANION GAP 8 mmol/L (7-16) [facility] UREA NITROGEN 15 mg/dL (7-24) [facility] CREATININE 1.03 mg/dL (0.80-1.30) [facility] BUN/CREAT RATIO 14.6 RATIO (10.0-20.0) [facility] GLUCOSE 133 mg/dL (70-99) H [facility] CALCIUM 8.7 mg/dL (8.4-10.2) [facility] GFR >60 ml/min/1.73m2 (>59) [facility] GFR ( AMER) >60 ml/min/1.73m2 (>59) [facility] GFR INTERPRETATION [facility] --NORMAL KIDNEY FUNCTION OR MILD DISEASE - GFR >OR= 60CHRONIC KIDNEY DISEASE - GFR 15 - 59RENAL FAILURE - GFR <15 Est. GFR calculation based on the MDRDstudy equation, which assumes a steadystate for creatinine. Est. GFR should notbe used for medication dosing. ID Date Data Source [id number] 05/02/2020 02:56:07 PM EDT [facility] Name Value Range Interpretation Code Description Data Debbie rce(s) Supporting Document(s) CALCIUM IONIZED 5.16 mg/dL (4.64-5.28) [facility] IONIZED CALCIUM NORMALIZED TO PH 7.40 AN D 37 DEGREES C. ID Date Data Source [id number] 05/02/2020 02:33:37 PM EDT [facility] Name Value Range Interpretation Code Description Data Debbie rce(s) Supporting Document(s) WBC 12.4 10*3/uL (4.1-11.0) H [facility] RBC 3.58 10*6/uL (4.60-6.10) L [facility] HGB 8.9 g/dL (13.5-18.0) L [facility] HCT 27.8 % (41.0-53.0) L [facility] MCV 77.5 fL (80.0-95.0) L [facility] MCH 25.0 pg (27.0-32.0) L [facility] MCHC 32.2 g/dL (32.0-36.0) [facility] RDW 19.5 % (10.5-14.5) H [facility] PLT 318 10*3/uL (150-450) [facility] MPV 6.7 fL (7.1-10.7) L [facility] ID Date Data Source [id number] 05/02/2020 12:12:35 PM EDT [facility] Name Value Range Interpretation Code Description Data Debbie rce(s) Supporting Document(s) &PDF [facility] FBRYPi3xHeMYAcFt05/FIYorFRUvz4ArXGnwWKa9XZwfFBOfK9UhbDpyTZvVE1OFYnpVRJWXRWKVSEbp vci [file] AgICAgICAgICAgICAgICAgICAgICAgICAgICAgICAgICAgICAgICAgICAgICAgICAgICAgICAgICAgIC JdOZHiSWYgEVBwZIDnUSEgCCBlPRWoRDRpNO7OXIRp ICAgICAgICAgICAgICAgICAgICAgICAgICAgICAgICAgICAgICAgICAgICAgICAgICAgICAgICAgICAg SYWlHAUjPTYpCAAfFXXlKJFlKDQuZTGwPTZdFWWvRHHiSIOvXR1IXUPiATExERCiADIrUXBlZXYcZZZq ICAgICAgICAgICAgICAgICAgICAgICAgICAgICAgIC UgJMBvOSNnTOWaTWPmOPVgHBOlIBWjNLSkAUJjIIEgYUYaOYVbBEOjQOGuYCSfHW3OAJUqNEMjWDZoVH AgICAgICAgICAgICAgICAgICAgICAgICAgICAgICAgICAgICAgICAgICAgICAgICAgICAgICAgICAgIC MeYCNdMVVqUUXsTWPgLPStQOLlEBAtSJCxHTZsHP1H ICAgICAgICAgICAgICAgICAgICAgICAgICAgICAgICAgICAgICAgICAgICAgICAgICAgICAgICAgICAg HCNnFFHxYIHtOXZcJTOvJMVmIVIeSWPmLGNaSZNwZCPnEDYlOWQdSN6BVWZwXBGbMAJkLXFrQJBaBZVu ICAgICAgICAgICAgICAgICAgICAgICAgICAgICAgIC GpSXPkTYOdGLRoABToCBYxQMHoAPEqTEYiGEPlNKLuATCpDGJxTCOmPCGtDNJiYFWaMB7ARNEoJUWoNS AgICAgICAgICAgICAgICAgICAgICAgICAgICAgICAgICAgICAgICAgICAgICAgICAgICAgICAgICAgIC AgICAgICAgICAgICAgICAgICAgICAgICAgICAgICAg VL3BPSBxVICwHTPjOVNlGRVnHZGyFMTkTQFrBDBeSXVzWIQzEOHfSOKqYTUuHZDnWYKaOKPlMCNtISTq RETmSWKzGTIlNJRiJFGaGGAzHUVnDTEgPJOdPFGaXDXpPZNtFIHaYSBkTY7KPHZjWNDxVFHkKAVwLABn ICAgICAgICAgICAgICAgICAgICAgICAgICAgICAgIC YeMIBhBMOiAXCoNBEkMMKoRCFnUCApWSVwEGSjASMwRODiDKHeDIGiCXFyIOCfYNSrLGUwNO6WRJBsWL AgICAgICAgICAgICAgICAgICAgICAgICAgICAgICAgICAgICAgICAgICAgICAgICAgICAgICAgICAgIC AgICAgICAgICAgICAgICAgICAgICAgICAgICAgICAg DAYfMG2SGU07kPJhl6H8AIWuOU8teld/Vb4CKMwglsGemQHtTG8VSrHhKB9fan0NHsKiEC3xay9NQQsN WkXrR2B8bVSgRQNzFSBFHdJsP10jRVpyZf17IFxjOICoHjZaPQy0Mq0TZkVsF3hjMNUpIhN5AQUlPeJq CGklJL2Hr1OkiMZcLBt+Rz8QIZ9eb3MnJQgvIkKlSQ 5bjl9AQPuPVeStU6R3uEGlW8K0XJzvBh3KFRGnMIXmAZIyTYCGKBtePD5RBU9kbsP4ER3EzBMfHJCpDS RueGIbKVd9D62lkFCcPKtxTE4PXZM+Krysta+Gl4ZRXPsKXRxMTGhXhTxRHXYDqTfK49ftBWeCEVyBTO0PJ MuNx0LNPSaK6SzxmJbuUlduvZiVIBlRWHCSB5XLUzc yjCdeWRbcYflSS47jEhoBT8BYj1LGqFqHP2cba8PdDAfGc5PFZKjMa6ZYSXvFNLvEDVdDGQ1PMZuPgNb ZKrwYPEnQUQvZQH5ICJqXNJwWY6GXqObUOWjOXVdAdWuXMFsFWNder8JGSEbBNVgXQgiYTIbEYJzETMi XSrwJOPqQMQjUEqeMIEmITKeZM6VChHzCHXvCQZ0Ph MuOOJeZEDkvl8KWOZlYPAkOCxgTEWdBKIkUSWhCJxgHAMfKRQwYWs6DFWtYPRtJL2ZNnTeFNVbTBWgPS EvCPQwSWTmxh3QLUGvKMZjOhU2AsAxRZUnRMVkMCxiJAGlPRG3MnTsURYnCKVnCA3UMsWbUCSwYMF1Hz UhIHZvJRCezh5ZQGEvONYlWXUyEFYpHYZcNICkHCel HCBhPKS1XpO2IHMzUZAmGH8LKeRkQSRyNHGaRUPcQGXkYUYaqq7LDOKyGZRaMHY9ESVdYZIwTDTxSPkv LHIzPHZ7MOAeZFTxELKuFG3KOhAaOMyxJLFMAdv9DCkoS8q3AHRdSt7CP5Cln0TdLMJuKTFQGImrCQ4x cqVoSHWtFf9CD9iVVrp8ESLfR4KwIDKcKAK8MddnVx X0TopcGTBbHGC9JUWsCR0sZVOmWxWtLIQ4UbM7Zob1RGWqVOxbLBFsK3CqXPFtCqK6UxSuXP3OUs0UPm F1GPB4nXDxEd0DHWReWBjGClRsHR2UZIz= ID Date Data Source [id number] 05/02/2020 11:59:27 AM EDT [facility] Name Value Range Interpretation Code Description Data Debbie rce(s) Supporting Document(s) POC ACT 98 s (80-140) [facility] PERFORMED BY [facility] ID Date Data Source [id number] 05/02/2020 11:58:01 AM EDT [facility] Name Value Range Interpretation Code Description Data Debbie rce(s) Supporting Document(s) POC SOURCE [facility] CP BYPASS [facility] POC PH 7.36 pH (7.35-7.45) [facility] POC PCO2 44.5 MMHG (32.0-48.0) [facility] P[facility] PO2 63 MMHG (83-108) L [facility] P[facility] SAT O2 91 % (95-99) L [facility] POC BASE DEFICIT 1 MMOL/L (0-2) [facility] POC HCO3 25.0 MMOL/L (21.0-29.0) [facility] P[facility] TOTAL CO2 26 MMOL/L (23.0-32.0) [facility] POC HCT 26 % (41.0-53.0) L [facility] POC SODIUM 134 MMOL/L (136-145) L [facility] POC POTASSIUM 4.8 MMOL/L (3.6-5.2) [facility] P[facility] IONIZED CALCIUM 5.3 MG/DL (4.6-5.3) [facility] P[facility] GLU 151 MG/DL (70-99) H [facility] ID Date Data Source [id number] 05/02/2020 01:45:49 PM EDT [facility] Name Value Range Interpretation Code Description Data Debbie rce(s) Supporting Document(s) APTT 15.5 s (22.0-34.3) L [facility] PERFORMED BY ALTERNATE METHOD. REFERENCE RANGE = 24.7 - 33.3 ID Date Data Source [id number] 05/02/2020 01:37:20 PM EDT [facility] Name Value Range Interpretation Code Description Data Debbie rce(s) Supporting Document(s) PT 11.9 s (9.2-11.9) [facility] INR 1.14 [facility] SUGGESTED THERAPEUTIC RANGES USING INR F ORSTABILIZED ANTICOAGULATED PATIENTS:STANDARD DOSE THERAPY INR 2.0-3.0 DVT, PE, PREVENT DVT OR EMBOLISMHIGH DOSE THERAPY INR 2.5-3.5 PREVENT EMBOLISM FROM MECHANICAL HEART VALVE ID Date Data Source [id number] 05/02/2020 11:49:30 AM EDT [facility] Name Value Range Interpretation Code Description Data Debbie rce(s) Supporting Document(s) POC SOURCE [facility] CP BYPASS [facility] POC VENOUS PH 7.37 pH (7.33-7.43) [facility] POC VENOUS PCO2 44.0 MM HG (38.0-50.0) [facility] P[facility]ENOUS PO2 38 MM HG (30-50) [facility] POC VENOUS SO2 71 % (60-85) [facility] POC [facility]ENOUS BASE EXCESS 0 mmol/L [facility] P[facility] VENOUS HCO3 25.5 MMOL/L (23.0-27.0) [facility] P[facility]EN[facility] TOTAL CO2 27 MMOL/L (24-28) [facility] POC HCT 24 % (41.0-53.0) L [facility] POC SODIUM 135 MMOL/L (136-145) L [facility] POC POTASSIUM 5.6 MMOL/L (3.6-5.2) H [facility] POC IONIZED CALCIUM 4.5 MG/DL (4.6-5.3) L [facility] POC GLU 164 MG/DL (70-99) H [facility] ID Date Data Source [id number] 05/02/2020 11:49:59 AM EDT [facility] Name Value Range Interpretation Code Description Data Debbie rce(s) Supporting Document(s) POC ACT 417 s (80-140) H [facility] ID Date Data Source [id number] 05/02/2020 11:03:52 AM [facility]FORMATION[facility] Name Date of Age Gend*PT [id number] Hiral Ferreira 1960 60 years M SDAPT Location Admission Date/Time Visit ID Attending Provider --- --- --- --- EPI ID CSN Admitting Provider [id number] ---Peripheral BlockPatient location during procedure: pre-opReason for [...] rce(s) Supporting Document(s) ID Date Data Source [id number] 05/02/2020 11:05:27 AM EDT [facility] Name Value Range Interpretation Code Description Data Debbie rce(s) Supporting Document(s) POC ACT 516 s (80-140) H [facility] PERFORMED BY [facility] STAFF ID Date Data Source [id number] 05/02/2020 11:01:25 AM EDT [facility] Name Value Range Interpretation Code Description Data Debbie rce(s) Supporting Document(s) POC SOURCE [facility] CP BYPASS [facility] POC VENOUS PH 7.36 pH (7.33-7.43) [facility] POC VENOUS PCO2 47.0 MM HG (38.0-50.0) [facility] POC [facility]EN[facility] PO2 42 MM HG (30-50) [facility] POC VENOUS SO2 75 % (60-85) [facility] POC VENOUS BASE EXCESS 1 mmol/L [facility] P[facility] VENOUS HCO3 26.5 MMOL/L (23.0-27.0) [facility] POC [facility]ENOUS TOTAL CO2 28 MMOL/L (24-28) [facility] POC HCT 26 % (41.0-53.0) L [facility] POC SODIUM 135 MMOL/L (136-145) L [facility] POC POTASSIUM 4.5 MMOL/L (3.6-5.2) [facility] POC IONIZED CALCIUM 4.6 MG/DL (4.6-5.3) [facility] POC GLU 141 MG/DL (70-99) H [facility] PER[facility] LAB [facility] ID Date Data Source [id number] 05/02/2020 10:31:51 AM [facility]T [facility]FORMATIONPatient MRN Name Date of Age Gend*PT [id number] Jose GuadalupeHiral J 1960 60 years M SDAPT Location Admission Date/Time Visit ID Attending Provider --- --- --- --- EPI ID CSN Admitting Provider [id number] ---Central Line InsertionPatient location during procedure: ORIndications [...] rce(s) Supporting Document(s) ID Date Data Source [id number] 05/02/2020 10:29:59 AM EDT [facility] NT INFORMATIONPatient MRN Name Date of Age Gend*PT [id number] NiwotHiral dugan J 1960 60 years M SDAPT Location Admission Date/Time Visit ID Attending Provider --- --- --- --- EPI ID CSN Admitting Provider [id number] ---Introducer AdditionsPatient location during procedure: ORIndications for [...] rce(s) Supporting Document(s) ID Date Data Source [id number] 05/02/2020 10:28:31 AM EDT [facility] NT INFORMATIONPatient MRN Name Date of Age Gend*PT [id number] Hiral Ferreira 1960 60 years M SDAPT Location Admission Date/Time Visit ID Attending Provider --- --- --- --- EPI ID CSN Admitting Provider [id number] ---Arterial Line PlacementPatient location during procedure: ORIndications [...] rce(s) Supporting Document(s) ID Date Data Source [id number] 05/02/2020 10:33:26 AM EDT [facility] Name Value Range Interpretation Code Description Data Debbie rce(s) Supporting Document(s) POC SOURCE [facility] CP BYPASS [facility] POC PH 7.35 pH (7.35-7.45) [facility] POC PCO2 49.0 MMHG (32.0-48.0) H [facility] POC PO2 66 MMHG (83-108) L [facility] POC SAT O2 91 % (95-99) L [facility] POC BASE EXCESS 1 MMOL/L (0-3) [facility] POC HCO3 26.8 MMOL/L (21.0-29.0) [facility] POC TOTAL CO2 28 MMOL/L (23.0-32.0) [facility] POC HCT 30 % (41.0-53.0) L [facility] POC SODIUM 137 MMOL/L (136-145) [facility] POC POTASSIUM 4.2 MMOL/L (3.6-5.2) [facility] POC IONIZED CALCIUM 4.9 MG/DL (4.6-5.3) [facility] POC GLU 116 MG/DL (70-99) H [facility] PER[facility] LAB [facility] ID Date Data Source [id number] 05/02/2020 10:15:27 AM EDT [facility] Name Value Range Interpretation Code Description Data Debbie rce(s) Supporting Document(s) POC ACT 384 s (80-140) H [facility] PERFORMED BY [facility] ID Date Data Source [id number] 05/02/2020 09:33:53 AM EDT [facility]FORMATIONPatient MRN Name Date of Age Gend*PT [id number] Hiral Ferreira 1960 60 years M SDAPT Location Admission Date/Time Visit ID Attending Provider --- --- --- --- EPI ID CSN Admitting Provider [id number] ---AirwayPatient location during procedure: ORUrgency: electiveDifficult airway: [...] cmPlacement verified by: chest auscultation and + [id number]: equal breath sounds bilateralGrade view: grade I - full view of glottis Name Value Range Interpretation Code Description Data Debbie rce(s) Supporting Document(s) ID Date Data Source [id number] 05/02/2020 09:34:24 AM EDT [facility] Name Value Range Interpretation Code Description Data Debbie rce(s) Supporting Document(s) POC SOURCE [facility] CP BYPASS [facility] POC PH 7.36 pH (7.35-7.45) [facility] POC PCO2 51.6 MMHG (32.0-48.0) H [facility] POC PO2 469 MMHG (83-108) H [facility] POC SAT O2 100 % (95-99) H [facility] POC BASE EXCESS 3 MMOL/L (0-3) [facility] POC HCO3 29.3 MMOL/L (21.0-29.0) H [facility] POC TOTAL CO2 31 MMOL/L (23.0-32.0) [facility] POC HCT 31 % (41.0-53.0) L [facility] POC SODIUM 137 MMOL/L (136-145) [facility] POC POTASSIUM 4.1 MMOL/L (3.6-5.2) [facility] POC IONIZED CALCIUM 4.8 MG/DL (4.6-5.3) [facility] POC GLU 104 MG/DL (70-99) H [facility] PER[facility] LAB [facility] ID Date Data Source [id number] 05/02/2020 09:38:57 AM EDT [facility] Name Value Range Interpretation Code Description Data Debbie rce(s) Supporting Document(s) POC ACT 120 s (80-140) [facility] ID Date Data Source [id number] 05/02/2020 08:03:36 AM EDT [facility] Name Value Range Interpretation Code Description Data Debbie rce(s) Supporting Document(s) ROOM TEMP AB SCREEN [facility] ROOM TEMP AB SCREEN NEGATIVE ID Date Data Source [id number] 05/06/2020 12:36:52 AM EDT [facility] SPEC EXP DATE 1PATI ENT ABO/Rh A POSITIVEANTIBODY SCREEN NEGATIVETESTING SITE PERFORMED AT [address] [place] [id number] BANK COMMENT BLOOD TYPE CONFIRMED.UNIT NUMBER [id number] COMPONENT TYPE LEUKOPOOR RED CELLSUNIT DIVISION 00STATUS OF UNIT REL FROM ALLOCTRANSFUSION STATUS OK TO TRANSFUSECROSSMATCH RESULT COMPATIBLEUNIT NUMBER [id number] COMPONENT TYPE LEUKOPOOR RED CELLSUNIT DIVISION 00STATUS OF UNIT REL FROM ALLOCTRANSFUSION STATUS OK TO TRANSFUSECROSSMATCH RESULT COMPATIBLE Name Value Range Interpretation Code Description Data Debbie rce(s) Supporting Document(s) TYPE AND SCREEN [facility] ID Date Data Source [id number] 05/02/2020 06:39:21 AM EDT [facility] Name Value Range Interpretation Code Description Data Debbie rce(s) Supporting Document(s) POC NOVA GLU 101 mg/dL (70-99) H [facility] [place] [facility] ID Date Data Source [id number] 04/27/2020 01:22:56 PM EDT [facility] Name Value Range Interpretation Code Description Data Debbie rce(s) Supporting Document(s) EKG [facility] EFEUMc4kRtODHlGob1KaCvZqODGcLI8ppmi1P3M9oGTxX0GihEQge8syV3UgH2GdLRWaLQFDJG0PjSIr jb2 [file] senior geotechnical engineer+fUEOPOUEhqASNH+gEg+FBJzxzRlt8i+bj1P/XfA [file] MDkgMDAwMDAgbiAKMDAwMDAwMTczNCAwMDAwMCBuIA boLWDfSHExNKV7UCHaULLrZF7cClLyGWZbPIDsWEMuPbN1KyDhUxTCpWPhmIlqmrh0QMowD9o2HFWkGB wzCY5hahKzCYEaXduoEm0nkVV9UNMgAcsUPr2Hn2GssmG4fbHsUjBhCXGoFgZwHK7X ID Date Data Source [id number] 04/28/2020 11:47:40 AM EDT [facility] SPECIMEN DESCRIPTION MIDSTREAM UR INE,CLEAN CATCHCULTURE RESULTS <10,000 CFU/ML REPRESENTING URETHRAL FLORAREPORT STATUS FINAL 04/28/2020 Name Value Range Interpretation Code Description Data Debbie rce(s) Supporting Document(s) ID Date Data Source [id number] 04/27/2020 03:43:50 PM EDT [facility] [place] Name Value Range Interpretation Code Description Data Debbie rce(s) Supporting Document(s) COLOR [facility] APPEARANCE [facility] SPEC GRAV URINE 1.010 (1.003-1.030) [facility] PH URINE 7.5 (5.0-7.5) [facility] LEUK ESTERASE (NEG) [facility] NITRITE URINE (NEG) [facility] PROTEIN URINE (NEG) [facility] GLUCOSE URINE (NEG) [facility] KETONE URINE (NEG) [facility] UROBILINOGEN 0.2 mg/dL (0-1.0) [facility] BILIRUBIN URINE (NEG) [facility] BLOOD/HGB URINE (NEG) [facility] ID Date Data Source [id number] 04/27/2020 11:30:18 AM EDT [facility] INFORMATIONPatient MRN Name Date of Age Gend*PT [id number] Hiral Fererira 1960 60 years M OPPT Location Admission Date/Time Visit ID Attending Provider --- --- --- Oneil Genao MD([id number]) EPI ID CSN Admitting Provider [id number] ---HISTORY PHYSICALName: Hiral Ferreira : 1960 Sex: male Care Provider: Rob Arredondoending Physician: Dr. PalmerInformant: The patient who is reliable.Chief Complaint: Mild chest pain and shortness of breathHISTORY OF PRESENT ILLNESS: 60 years old white male with a longstanding historyof cardiac murmur who has been followed by his bilingual call center representative on a regular basis.5 months ago he started with dizziness and syncopal episodes with slight chestpressure. He saw his bilingual call center representative and st udies were done. On 02/13/2020 [...] moderate (CAROLA 1.3cm2, mean gradient 23mmHg) - [facility] Echocardiogram 01/08/2016 Normal LV size with [...] warm and dry.HEENT: He is normocephalic, atraumatic. Gasquet conjunctivae. Anicteric sclerae.Pupils are equal, round, reactive [...] hepatosplenomegaly. Negative CVAT.GENITAL/RECTAL: Deferred.MUSCLE/SKELETAL: Strength is 5/5. Lead Programmer Analyst are equal.NEUROLOGICALLY: Cranial nerves II through XII are grossly intact.VASCULAR: Pulses are symmetrical. No denies edema.Anesthesia complications: DeniesSteroid use: [facility] Frailty Scale :: 3/10 Managing Well (medical problems are well controlled,but are not regularly active beyond routine walking).Stop Bang Questionnaire - Total Score:STOP-Bang Total Score: 4IMPRESSION and PLAN:Primary Diagnosis: None rheumatic aortic valve insuffi [facility] surgery asper .Secondary Diagnosis and Plan:1. CAD [...] parts of this document, were dictated using [employer] software. A reasonable attempt at proofreading has beenmade to minimize errors. Please call with any questions or corrections. Name Value Range Interpretation Code Description Data Debbie nicolee(s) Supporting Document(s) ID Date Data Source [id number] 04/28/2020 02:02:35 PM EDT [facility] Name Value Range Interpretation Code Description Data Debbie rce(s) Supporting Document(s) SPECIMEN DESCRIPTION [facility] STAPH SCREEN RESULTS (ONEGSA) [facility] COMMENT [facility] GENE TO DETECT STAPH AUREUS. (2) RT-P CR WAS PERFORMED FOR THE mecA AND SCCmec GENES TO DETECT METHICILLIN RESISTANCE IN STAPH AUREUS. ID Date Data Source [id number] 04/27/2020 04:18:54 PM EDT [facility] Name Value Range Interpretation Code Description Data Debbie rce(s) Supporting Document(s) SODIUM 136 mmol/L (136-145) [facility] POTASSIUM 4.9 mmol/L (3.6-5.2) [facility] CHLORIDE 100 mmol/L (100-108) [facility] CO2 31 mmol/L (22-31) [facility] ANION GAP 5 mmol/L (7-16) L [facility] RESULTS REVIEWED UREA NITROGEN 11 mg/dL (7-24) [facility] CREATININE 0.77 mg/dL (0.80-1.30) L [facility] BUN/CREAT RATIO 14.3 RATIO (10.0-20.0) [facility] GLUCOSE 94 mg/dL (70-99) [facility] CALCIUM 9.6 mg/dL (8.4-10.2) [facility] TOTAL PROTEIN 6.9 g/dL (6.4-8.2) [facility] ALBUMIN 4.1 g/dL (3.2-4.5) [facility] GLOBULIN 2.8 g/dL (2.7-4.3) [facility] ALB/GLOB RATIO 1.5 RATIO [facility] ALKALINE PHOSPHATASE 143 U/L (45-117) H [facility] BILIRUBIN,TOTAL 0.3 mg/dL (0.0-1.0) [facility] PLEASE NOTE:Total bilirubin results may be falselyelevated in patients taking Eltrombopag. AST (SGOT) 17 U/L (11-39) [facility] ALT (SGPT) 25 U/L (12-78) [facility] GFR >60 ml/min/1.73m2 (>59) [facility] GFR ( AMER) >60 ml/min/1.73m2 (>59) [facility] GFR INTERPRETATION Lab [facility] e [facility] [place] --NORMAL KIDNEY FUNCTION OR MILD DISEASE - GFR >OR= 60CHRONIC KIDNEY DISEASE - GFR 15 - 59RENAL FAILURE - GFR <15 Est. GFR calculation based on the MDRDstudy equation, which assumes a steadystate for creatinine. Est. GFR should notbe used for medication dosing. ID Date Data Source [id number] 04/27/2020 04:18:54 PM EDT [facility] [place] Name Value Range Interpretation Code Description Data Debbie rce(s) Supporting Document(s) NT PRO BNP 191 pg/mL (0-125) H [facility] [place] ID Date Data Source [id number] 04/27/2020 03:25:32 PM EDT [facility] [place] Name Value Range Interpretation Code Description Data Debbie rce(s) Supporting Document(s) HEMOGLOBIN A1C @ 6.0 % (4.0-6.0) [facility] Performed using Siemens [place] immunoassa y.Care must be taken when interpreting YkR4dectldny in patients with a hemoglobin variantor decreased erythrocyte lifespan. Values 5.7 - 6.4% suggest prediabetes.Values >=6.5% are diagnostic for diabetes.REFERENCE: DIABETES CARE 2018: 41(S13-S27). EST AVERAGE GLUCOSE 126 mg/dL Lab [facility] [place] ID Date Data Source [id number] 04/27/2020 03:10:09 PM EDT [facility] [place] Name Value Range Interpretation Code Description Data Debbie rce(s) Supporting Document(s) PT 10.3 s (9.2-11.9) [facility] INR 0.99 [facility] SUGGESTED THERAPEUTIC RANGES USING INR F ORSTABILIZED ANTICOAGULATED PATIENTS:STANDARD DOSE THERAPY INR 2.0-3.0 DVT, PE, PREVENT DVT OR EMBOLISMHIGH DOSE THERAPY INR 2.5-3.5 PREVENT EMBOLISM FROM MECHANICAL HEART VALVE ID Date Data Source [id number] 04/27/2020 03:10:09 PM EDT [facility] Name Value Range Interpretation Code Description Data Debbie rce(s) Supporting Document(s) APTT 24.9 s (22.0-34.3) [facility] ID Date Data Source [id number] 04/27/2020 02:41:09 PM EDT [facility] Name Value Range Interpretation Code Description Data Debbie rce(s) Supporting Document(s) WBC 5.4 10*3/uL (4.1-11.0) [facility] [place] RBC 4.02 10*6/uL (4.60-6.10) L [facility] HGB 10.0 g/dL (13.5-18.0) L [facility] HCT 30.9 % (41.0-53.0) L [facility] MCV 76.7 fL (80.0-95.0) L [facility] MCH 24.8 pg (27.0-32.0) L [facility] MCHC 32.3 g/dL (32.0-36.0) [facility] RDW 19.5 % (10.5-14.5) H [facility] PLT 468 10*3/uL (150-450) H [facility] MPV 6.8 fL (7.1-10.7) L [facility] NEUT % 66.3 % (35.0-75.0) [facility] LYMPH % 23.1 % (16.0-52.0) [facility] MONO % 9.1 % (0.0-8.0) H [facility] EOS % 0.8 % (0.0-5.0) [facility] BASO % 0.7 % (0.0-4.0) [facility] NEUT # 3.6 10*3/uL (1.8-7.7) [facility] LYMPH # 1.3 10*3/uL (1.2-4.8) [facility] MONO # 0.5 10*3/uL (0.0-0.8) [facility] Eosinophils [#/volume] in Blood by Automated count 0.0 10*3/uL (0.0-0 .5) [facility] PETERSEN BASO # 0.0 10*3/uL (0.0-0.2) [facility] ID Date Data Source [id number] 04/27/2020 09:30:00 AM EDT [facility] Name Value Range Interpretation Code Description Data Debbie rce(s) Supporting Document(s) SARS coronavirus 2 RNA Not Detected [facility] This lab was ordered by [facility] and reported by [place]. ID Date Data Source [id number] 04/28/2020 11:07:46 PM EDT [facility] preethi PETERSEN Name Value Range Interpretation Code Description Data Debbie rce(s) Supporting Document(s) SARS-COV-2 RAD [facility] preethi PETERSEN Not DetectedReference range: Not Detecte d This nucleic acid amplification test was developed and its performance characteristics determined by [employer]. Nucleic acid amplification tests include RT-PCR and [...] detected) result in this assay. Performed At: [employer] [place], [place] [id number] Markie Pelaez Padma PhD Ph:[phone] ID Date Data Source [id number] 04/05/2020 10:18:00 AM EST [facility] Name Value Range Interpretation Code Description Data Debbie rce(s) Supporting Document(s) SARS coronavirus 2 RNA [Presence] in Res piratory specimen by RAD with probe detection NEGATIVE [facility] This lab was ordered by [facility] a nd reported by [facility]. ID Date Data Source [id number] 04/02/2020 01:01:10 PM EST [facility] Name Value Range Interpretation Code Description Data Debbie rce(s) Supporting Document(s) POC SOURCE [facility] PUNCTURE SITE [facility] O2 THERAPY [facility] PAUL TEST [facility] POC PH 7.46 pH (7.35-7.45) H [facility] POC PCO2 35.4 MMHG (32.0-48.0) [facility] POC PO2 81 MMHG (83-108) L [facility] POC SAT O2 97 % (95-99) [facility] POC BASE EXCESS 2 MMOL/L (0-3) [facility] POC HCO3 25.3 MMOL/L (21.0-29.0) [facility] POC TOTAL CO2 26 MMOL/L (23.0-32.0) [facility] [place] [facility] PERFORMED BY [facility] ID Date Data Source [id number] 04/02/2020 11:55:00 AM EST [facility] XRAY CHEST ROUTINE PA [...] rce(s) Supporting Document(s) ID Date Data Source [id number] 04/02/2020 11:44:00 AM EST [facility]TR ASOUND CAROTID DUPLEXCLINICAL HISTORY: Pretesting. [...] rce(s) Supporting Document(s) ID Date Data Source [id number] 04/02/2020 11:35:15 AM EST [facility] Name Value Range Interpretation Code Description Data Debbie rce(s) Supporting Document(s) EKG [facility] WUZYCv8hHjYZSeKeb7LkLzQzHAKsZG4fhss9V9C9hAFaQ8BgkRLlr6rmN4IcX7DfROJtWWOGAZ8XnXVp jb2 [file] iQ5L+loagO8Z+tygzW7I+mmvhL9P+ktnaH4W+qjmrt0E+urjjo7Y+fjbnk2L+tribC2S+jrckP5W+vgw iU5M+oetxE2Pcc/gO5UAV8nTiPisAekGmSbpvflQuW kffybRoUkfjybRpUkfnybRqUkfrybRrUkfvybRsUn9+0VEPT++OyTjmu6mFxI6nf1+YjKLce1bLfKKnh 4+MwMGlo5kUcCcmm8+RpOzmz7xXqLmha5+PdTqoz4uOrQ2mg0+XxRAyv3cM4YAiy0+Z2ACnc0aD1Bvai 5+F8Ztna2lS3Ltnq6+M5Fhng5jB1H0tq7+F4PIfG2p UKILlD4+AVNDjU5mQYNhgZ9+AYDboB4wPIUgxA6+ZBVplC8hATP0gV0+UKY/lD/+UKY/lD/+UKY/lD/+ UKY/lD/+UKY/lD/+UKY/lD/+UKY/lD/+UKY/lD/+UKY/lD/+UKY/lD/+UKY/lD/+UKY/lD/+UKY/lD/+ UKY/lD/+UKY/lD/+UKY/lL/jJ2TS3zqCB1Tq/t0aTV ik+egZlmm+8wClulc5GuHYqc6tCTNj4voaA4HdZf9Smp+UP/5Qpj+UP/5Qpj+UP/5Qpj+UP/5Qpj+UP/ 5Qpj+UP/5Qpj+UP/5Qpj+UP/5Qpj+UP/5Qpj+UP/5Qpj+UP/5Qpj+UP/5Qpj+UP/5Qpj+UP/5Qpj+UP/ 5Qpj+UP/5Qpj+UP/5Qpj+UP/5Qpj+UP/5Qpj+UP/5Q pj+UP/5Qpj+UP/5Qpj+UP/5Qpj+UP/5Qpj+UP/5Qpj+UP/5Qpj+UP/5Qpj+UP/5Qpj+UP/5Qpj+UP/5Q pj+UP/5Qpj+UP/5Qpj+UP/5Qpj+UP/5Q/UXDl/FQ19XJG9KSAi9kHQgceZ2a4R4XqGZ0skBC0HLUU2GW Ca24ViE+uodo1yIhJ3T+fjfY1kMvW8V+fvxK6eHuP2 E+nntQ7rSfD9N+uhfB8eXiM3D+xbnY1nIaJ3N+zzxT5oSeB5H+xexC0cOiQ3E+wbwZ1aZwE3Y+lfo06t OoT6M+ejd22lXqA6S+qkw06uFzS0P+SWH56iTaU9W+dxb88gWaS5b+jae85tArD1m+pam75oNjK0p+nf y07rDnY3w+widY6dLpv6R+g/cQ7pAgv7U+g/oM6jOo z6A+g/mP8xNnq0A+g/xH2xExk1S+k/vY5sOtq5W+k/sA3oPpc1T+k/nX9oUkl8H+k/fe1dNmd0K+i/os 6xVnr4W+i/ja5gYem5E+i/dm5jNye8J+i/qjoaleky5kWPpkIi4PMtgTrzLalaYueYZzFPhOM+sT5tYn QC2NqP8gPQ7+Vr3D9AyUdbH2J4O/GIZEVm6H5DwHbw T0S0G/6ZeS2mF2O5M3rI2X3W5YeRPI6AMRgSNM7DMMtMHB6LJSkEDA2YNDrVSR9NUOzPVB9AJCtFTY2Z UHdYbA7KeJqPpS7GwOyScS8PbYsVkT1MkBlZdB9XrMnGmI6QcOjD2B8U2MyQ3V0X1DsU4J2T1NpRHA7V GBjUAN0VKLoAQI7AJDxRLN5VMWnJFE8PZDsGJU3KNI sZJQ5RTPxDbE8MtHgHgG4HaJwStK2VfThDxE7DhJmElS5AfPwNgF37snswB0CPwktb/v3Wja9iwtO/N1 L7phRoJOTK2BiYeYwtOemoQwhGbmvJvnyDWyUndmeIzkbJkAGRxU79DPJ8L6BHNNGA4E8HQIX5Z08mNE A0+N+NTAUyM+WbWKxF9CAHYtAymVgX6vy0N/vfywm5 9PPz/e2NciPRSUd9FWO/nYSKKRpI+VJJpJ+arVrmBdz8AkfjwlT0hP8jq0gprIBgeHrVUbJtEHVyN+Supply Cataloguer [file] WqQhb0IPngHYmzKOMZPg== ID Date Data Source [id number] 04/02/2020 11:28:30 AM EST [facility] INFORMATIONPatient MRN Name Date of Age Gend*PT [id number] Hiral Ferreira 1960 60 years M OPPT Location Admission Date/Time Visit ID Attending Provider --- --- --- Oneil Genao MD([id number]) EPI ID CSN Admitting Provider [id number] ---HISTORY PHYSICALName: Hiral Ferreira : 1960 Sex: male Care [facility]: Dr. GenaoInformant: The patient [...] his PCP.Subsequently he was referred to bilingual call center representative Dr. Villaseñor. On 02/13/2020 heunderwent TTE which [...] moderate (CAROLA 1.3cm2, mean gradient 23mmHg) - [facility] Echocardiogram 01/08/2016 Normal LV size with [...] Take 15 mg by mouth nightly as qmkpuq53/7/20 Historical Provider, nortriptyline (PAMELOR) 25 MG capsule Take 50 mg by mouth nightly as gjkonq81/30/20 Historical Provider, MDpantoprazole (PROTONIX) 40 MG tablet [...] warm and dry.HEENT: He is normocephalic, atraumatic. [place] conjunctivae. Anicteric sclerae.Pupils are equal, round, reactive [...] hepatosplenomegaly. Negative CVAT.GENITAL/RECTAL: Deferred.MUSCLE/SKELETAL: Strength is 5/5. Lead Programmer Analyst are equal. Spinal cord stimulatorintact to lower [...] parts of this document, were dictated using [employer] speaking software. A reasonable attempt at proofreading has beenmade to minimize errors. Please call with any questions or corrections. Name Value Range Interpretation Code Description Data Debbie rce(s) Supporting Document(s) ID Date Data Source [id number] 04/02/2020 10:01:02 PM EST [facility] [place] [facility] SPEC EXP DATE 1PATI ENT ABO/Rh A POSITIVEANTIBODY SCREEN NEGATIVETESTING SITE PERFORMED AT [address] [place] [address] Name Value Range Interpretation Code Description Data Debbie rce(s) Supporting Document(s) TYPE AND SCREEN [facility] [place] [facility] ID Date Data Source [id number] 04/02/2020 07:01:34 PM EST [facility] [place] [facility] Name Value Range Interpretation Code Description Data Debbie rce(s) Supporting Document(s) HEMOGLOBIN A1C @ 5.9 % (4.0-6.0) [facility] [place] [facility] Performed using Siemens [place] immunoassa y.Care must be taken when interpreting [id number] in patients with a hemoglobin variantor decreased erythrocyte lifespan. Values 5.7 - 6.4% suggest prediabetes.Values >=6.5% are diagnostic for diabetes.REFERENCE: DIABETES CARE 2018: 41(S13-S27). EST AVERAGE GLUCOSE 123 mg/dL [facility] [place] [facility] ID Date Data Source [id number] 04/02/2020 06:39:07 PM EST [facility] [place] [facility] Name Value Range Interpretation Code Description Data Debbie rce(s) Supporting Document(s) ROOM TEMP AB SCREEN [facility] ROOM TEMP AB SCREEN NEGATIVE ID Date Data Source [id number] 04/02/2020 06:16:26 PM EST [facility] [place] [facility] Name Value Range Interpretation Code Description Data Debbie rce(s) Supporting Document(s) NT PRO BNP 163 pg/mL (0-125) H [facility] [place] [facility] ID Date Data Source [id number] 04/02/2020 06:16:26 PM EST [facility] [place] [facility] Name Value Range Interpretation Code Description Data Debbie rce(s) Supporting Document(s) SODIUM 134 mmol/L (136-145) L [facility] [place] [facility] POTASSIUM 4.8 mmol/L (3.6-5.2) [facility] [place] [facility] CHLORIDE 97 mmol/L (100-108) L [facility] [place] [facility] CO2 29 mmol/L (22-31) [facility] [place] [facility] ANION GAP 8 mmol/L (7-16) [facility] UREA NITROGEN 12 mg/dL (7-24) [facility] CREATININE 0.89 mg/dL (0.80-1.30) [facility] BUN/CREAT RATIO 13.5 RATIO (10.0-20.0) [facility] GLUCOSE 99 mg/dL (70-99) [facility] CALCIUM 9.5 mg/dL (8.4-10.2) [facility] TOTAL PROTEIN 7.1 g/dL (6.4-8.2) [facility] ALBUMIN 4.2 g/dL (3.2-4.5) [facility] GLOBULIN 2.9 g/dL (2.7-4.3) [facility] ALB/GLOB RATIO 1.4 RATIO [facility] ALKALINE PHOSPHATASE 139 U/L (45-117) H [facility] BILIRUBIN,TOTAL 0.4 mg/dL (0.0-1.0) [facility] PLEASE NOTE:Total bilirubin results may be falselyelevated in patients taking Eltrombopag. AST (SGOT) 20 U/L (11-39) [facility] ALT (SGPT) 27 U/L (12-78) [facility] GFR >60 ml/min/1.73m2 (>59) [facility] GFR ( AMER) >60 ml/min/1.73m2 (>59) [facility] GFR INTERPRETATION [facility] --NORMAL KIDNEY FUNCTION OR MILD DISEASE - GFR >OR= 60CHRONIC KIDNEY DISEASE - GFR 15 - 59RENAL FAILURE - GFR <15 Est. GFR calculation based on the MDRDstudy equation, which assumes a steadystate for creatinine. Est. GFR should notbe used for medication dosing. ID Date Data Source [id number] 04/02/2020 04:34:24 PM EST [facility] Name Value Range Interpretation Code Description Data Debbie rce(s) Supporting Document(s) WBC 6.1 10*3/uL (4.1-11.0) [facility] RBC 3.38 10*6/uL (4.60-6.10) L [facility] HGB 8.3 g/dL (13.5-18.0) L [facility] HCT 25.5 % (41.0-53.0) L [facility] MCV 75.5 fL (80.0-95.0) L [facility] MCH 24.5 pg (27.0-32.0) L [facility] MCHC 32.5 g/dL (32.0-36.0) [facility] RDW 16.8 % (10.5-14.5) H [facility] PLT 513 10*3/uL (150-450) H [facility] MPV 6.5 fL (7.1-10.7) L [facility] NEUT % 72.2 % (35.0-75.0) [facility] LYMPH % 16.7 % (16.0-52.0) [facility] MONO % 9.8 % (0.0-8.0) H [facility] EOS % 0.4 % (0.0-5.0) [facility] BASO % 0.9 % (0.0-4.0) [facility] NEUT # 4.4 10*3/uL (1.8-7.7) [facility] LYMPH # 1.0 10*3/uL (1.2-4.8) L [facility] MONO # 0.6 10*3/uL (0.0-0.8) [facility] Eosinophils [#/volume] in Blood by Automated count 0.0 10*3/uL (0.0-0 .5) [facility] BASO # 0.1 10*3/uL (0.0-0.2) [facility] ID Date Data Source [id number] 04/02/2020 04:28:10 PM EST [facility] Name Value Range Interpretation Code Description Data Debbie rce(s) Supporting Document(s) PT 10.4 s (9.2-11.9) [facility] INR 1.00 [facility] SUGGESTED THERAPEUTIC RANGES USING INR F ORSTABILIZED ANTICOAGULATED PATIENTS:STANDARD DOSE THERAPY INR 2.0-3.0 DVT, PE, PREVENT DVT OR EMBOLISMHIGH DOSE THERAPY INR 2.5-3.5 PREVENT EMBOLISM FROM MECHANICAL HEART VALVE ID Date Data Source [id number] 04/02/2020 04:28:10 PM EST [facility] Name Value Range Interpretation Code Description Data Debbie rce(s) Supporting Document(s) APTT 21.5 s (22.0-34.3) L [facility] ID Date Data Source [id number] 04/02/2020 07:35:56 PM EST [facility] Name Value Range Interpretation Code Description Data Debbie rce(s) Supporting Document(s) COLOR [facility] APPEARANCE [facility] SPEC GRAV URINE 1.008 (1.003-1.030) [facility] PH URINE 7.0 (5.0-7.5) [facility] LEUK ESTERASE (NEG) [facility] NITRITE URINE (NEG) [facility] PROTEIN URINE (NEG) [facility] GLUCOSE URINE (NEG) [facility] KETONE URINE (NEG) [facility] UROBILINOGEN 0.2 mg/dL (0-1.0) [facility] BILIRUBIN URINE (NEG) [facility] BLOOD/HGB URINE (NEG) [facility] ID Date Data Source [id number] 04/03/2020 03:16:07 PM EST Lab [facility] SPECIMEN DESCRIPTION MIDSTREAM UR INE,CLEAN CATCHCULTURE RESULTS NO GROWTHREPORT STATUS FINAL 04/03/2020 Name Value Range Interpretation Code Description Data Debbie rce(s) Supporting Document(s) ID Date Data Source [id number] 04/03/2020 11:20:01 AM EST [facility] Name Value Range Interpretation Code Description Data Debbie rce(s) Supporting Document(s) SPECIMEN DESCRIPTION [facility] STAPH SCREEN RESULTS (ONEGSA) [facility] COMMENT [facility] GENE TO DETECT STAPH AUREUS. (2) RT-P CR WAS PERFORMED FOR THE mecA AND [employer] GENES TO DETECT METHICILLIN RESISTANCE IN STAPH AUREUS. ID Date Data Source [id number] 04/02/2020 09:45:00 AM EST [facility] Name Value Range Interpretation Code Description Data Debbie rce(s) Supporting Document(s) SARS coronavirus 2 RNA Not Detected [facility] This lab was ordered by [facility] and reported by [place]. ID Date Data Source [id number] 04/03/2020 06:08:42 PM EST [facility] Name Value Range Interpretation Code Description Data Debbie rce(s) Supporting Document(s) SARS-COV-2 RAD [facility] Not DetectedReference range: Not Detecte d This nucleic acid amplification test was developed and its performance characteristics determined by [employer]. Nucleic acid amplification tests include RT-PCR and [...] detected) result in this assay. Performed At: [employer] [place], [place] [id number] Markie Rouse PhD Ph:[phone] ID Date Data Source [id number] 02/24/2020 03:01:28 PM EST [facility] NT INFORMATIONPatient MRN Name Date of Age Gend*PT [id number] Hiral Ferreira 1960 59 years M ---PT Location Admission Date/Time Visit ID Attending Provider --- --- --- --- EPI ID CSN Admitting Provider [id number] ---Addended by: ISAC JONES on: 02/24/2020 03:01 PM Modules accepted: Orders, SmartSet Name Value Range Interpretation Code Description Data Debbie rce(s) Supporting Document(s) ID Date Data Source [id number] 02/24/2020 02:49:19 PM EST [facility] NT INFORMATIONPatient MRN Name Date of Age Gend*PT [id number] Hiral Ferreira 1960 59 years M HOPPT Location Admission Date/Time Visit ID Attending [id number] 02/24/20 0614 --- --- EPI ID CSN Admitting Provider [id number] Marla Marino MD([id number])Cardiothoracic Surgery ConsultMichaeelvie Smith: [phone] for consult: aortic valve stenosisAssessment/Plan:Active Problems: Peripheral [...] moderate (CAROLA 1.3cm2, mean gradient 23mmHg) - [facility] Echocardiogram 01/08/2016 Normal LV size with [...] on phone: None Gets together: None Attends protestant service: None Active member of club or [...] Name Value Range Interpretation Code Description Data [facility] Supporting Document(s) ID Date Data Source [id number] 02/24/2020 10:13:33 AM EST [facility] Name Value Range Interpretation Code Description Data [facility]) Supporting Document(s) &PDF [facility] CLSYYv0hPkGSLkUi23/IZDbrUEPsi0OzMKwpWOb3BGioEIQcR7QtxXvbTFtPB7HBPhiZAVFBMYAHBL1y oRX [file] ICAgICAgICAgICAgICAgICAgICAgICAgICAgICAgIC PhPCMwOCWxHUCnGKMjDWOsGFXfQPHcMCOkJP6LAXNyVSFiTYCvJZFcCIXwUOTzILJqIACkSQFbDKAwFL AgICAgICAgICAgICAgICAgICAgICAgICAgICAgICAgICAgICAgICAgICAgICAgICAgICAgICAgICAgIC YmLDBhEXNbTZ3RIOSqVMFoFIZxWKYzMWEiRPGzVNUr ICAgICAgICAgICAgICAgICAgICAgICAgICAgICAgICAgICAgICAgICAgICAgICAgICAgICAgICAgICAg YCLmTPZyOLMbRDSpZCHbDLEvRK2QRERmJDStTYPvYIAeJXBvKBKpNRVcTFOgKAChJFWaBXReLLBwWWGk ICAgICAgICAgICAgICAgICAgICAgICAgICAgICAgIC KdRDPbBYAtRDToMLIjPKPoPEZdMXViLDQnQCYmGG6ZUFJxOSJtNRZcVIHvBAGdSFDbMYAoMHOqSKMaKA AgICAgICAgICAgICAgICAgICAgICAgICAgICAgICAgICAgICAgICAgICAgICAgICAgICAgICAgICAgIC HbGWKfNCCvKJXxVX4HKDVyOPZbPUHzTYIvUPZsGUAp ICAgICAgICAgICAgICAgICAgICAgICAgICAgICAgICAgICAgICAgICAgICAgICAgICAgICAgICAgICAg OMYhPINaHEGiPFYtVQFpYNKgYHBeRZ0OPXDwASKeUQFoUQGxUMOkUSDcVATqKRTdLSNfXXBoPFNyQTKw ICAgICAgICAgICAgICAgICAgICAgICAgICAgICAgIC AdXPIxMYCdPACxXJJhEWPuCVElAJQpWAOeNBRuAQBdUT2WTWRaGSMmYKZsNKPdZCLtEABjBHUsPHQlFH AgICAgICAgICAgICAgICAgICAgICAgICAgICAgICAgICAgICAgICAgICAgICAgICAgICAgICAgICAgIC WpBONuLCUjWWUfPIEeDR0OIBCeNYMbTCIiWWXjJSKa ICAgICAgICAgICAgICAgICAgICAgICAgICAgICAgICAgICAgICAgICAgICAgICAgICAgICAgICAgICAg CEDvKEZbYZYqTULhZOSjLWFtWOEkITNxEL7HSOKiGSHcMHYgRCWjTUIcIBYfXTHcRVLiRHByNYInJDBh ICAgICAgICAgICAgICAgICAgICAgICAgICAgICAgIC EgILWrRDVaWZPeQZUnUZZqVQHpOJFcUTZkDDRaSORhIVVxGI0FHS38aNXmp1C0LPInWW5zkpx/Pg0KDQ iyagOqcPPnFB8GFrSjKS3ear2OVpIcXW4jws4VFDsGDhOcS7J6aGKoCOEkWJUGBtPhT05fKTceEb97IC isRVXwUfCtOLt4Xz3BEvAcK5vbPSKwMlR4VMGaSpS4 NYIvGoZ0VYWiSaUoMTKbPQBnQI0RYCIoO331xqZgSZ9SNd7NQoMiXD6gpk8UPdXkJFIwDcjQCpy0GXha DV2BmDHioMWsLwNoBHNOVbDwF9twe8XfWjreSQHSGJjiHW6Bu5FsjKHfRCf+Im0PBH3vr8WaUFdqGrYp WJ9jme9AQEcGDaOiJ4VzhTngRNxbnQykcoWqMU0XMZ AmNSXbrVZfTTkxWHCTYP8QVJdsYHA9YrylimPfiOVpOOelUX3RMJAornIfUzZlDXPQFNw+Yu2PST2os6 EwVAgaNEVuNE8vem6EXQnMLjNsD9M6eBOjX8X9VLtpKu1DTZTyJIKzRfFuRTOAJAhkKH1MFJ9orxP2IF 0DiUAwGQMvWEGzyOBlCZx7G94mfODnEYqjRR7BXKY+ Krysta+Zi1MJOIpNREcEGYmEnJbAUQKMhOgA3JlX8XCf1EfO1TpLL81hBtgmyKeDSwyGA5AZJ5aSDOfBGAN AK9KjRYelK0ptvTcQzCkEZJIUaOvK05keNKxRWQlZIT7NDPaGl9QWTCbB5XtblJucAtsmbNrTWNtJZGS OI1QLBwjqfZqdJNdlEsfFL78dBdqGS4SGl2MGnDeJI 5jqn6QxUYtMf8JGMMoWM5NPXQbVDQcMDDdHRD9DNAnXdDdGWgaCLMwFFPjMDT2CSFnBFRiTX4ORdKlWV LaMMF7NCIpQVHzXSFbpi9ESSAeLPR9EPuwRIAwJHSaYXEuOGzsNFNcSIVvNJnbEYZpPQTzTE5RTsMxPT TuZFJhZzkrKVZbHUTzgg9OYPElOUExMjUmSRJkMDFz ABMkWEpfSHPyZOU0JPacICZcNKZnXV0OXrUzIUMaCHKgGkWmQHEbDUVtgc9VDGFgNJTpLtb2KqIyAYOq BJSjVHbzMHKzBME5SPXyJOTyISQzKZ0TXuXcQLNbZQwyJvlbZRPaTUOgxb8JVADsCQDaFWVnDJPhDWIg HPYmUQyiXMYmBAD5Ffq6JGDsMNEsQU7CHsTkCOJxNJ b0SJToVFJrWYXsmi1VZGSsLDFwDOx9MLAdAYRsFVKhTVupDVPtSFJaEhRdPGPzCCNuEY8MWsTfECVaBS L2CjQyVAOjDGNbwj1BNWZkDUTnYFBhNqWrRJRrUJAaTRowNHDgCEV3EGD8MJUkMFXdZV0ZPfDcFNUeTZ H5VsKhABHnCGHyrt4HTGQqVQTqOeP8TXVnRBAuNVBg MShkADMhQHN8VITiTWBpKYPdWD0GQmXbBISbRrtaSJSdLOSvOQPqkb8JNYRmDPN8Mjm9ImXeETNfNNZv PZotJVGnEIX9ZtxfJZFfZTIqZF6CZgOiLVAvGZo0VwqkMBKxDDKsjr5HNDIgLEB0BPp8EWRkVIZzJHWh PRjxDYBjMAS3ARb9HGNtHDMgRN4SKoQvMEjcHQECXx q5HXfiF8b2LNMyEL7CS5Eym1OrBwstAXSKQKimOO6iifWfMOTrWx1YC2wQTsk3J0V1OqX2KHX7NJvdCW k1LEL3RarwCECrEQFfA4T4WZ5mDHo7BDvwDzoiFqPzQeK2CEy3LHK2JWAcSoMlVFApOqstPyBlAB7NCc 2IFqP9PFP4iEQgGl6EBHhiDNQAXsRoXE9BFDr= ID Date Data Source [id number] 02/24/2020 06:53:35 AM EST [facility] Name Value Range Interpretation Code Description Data Debbie rce(s) Supporting Document(s) EKG [facility] ELPLKa0zAuJRKtJul6CvTwPcFUQcBX1clpy1A4F1yZAzX5EzgADit8rvT6EdD6HzEPAvYKWXUZ4LgEMb jb2 [file] ++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/P+/nhC/r4bSUqrfPxonk33Wy6+iiuN84ql568xwA8jobtCHOWPKZJ+aqQJEO+ZfBLgc8WQTUap6 [file] pbPIB0Do4CsmZjRSRzTJMAId6Ey037RWFhOMHPPqp+EzxljIWiqLkwOEDTYZD0MDHKXOZSC3S= ID Date Data Source [id number] 02/24/2020 07:33:30 AM EST [facility] Name Value Range Interpretation Code Description Data Debbie rce(s) Supporting Document(s) SODIUM 137 mmol/L (136-145) [facility] POTASSIUM 4.5 mmol/L (3.6-5.2) [facility] SLIGHT HEMOLYSIS CHLORIDE 101 mmol/L (100-108) [facility] CO2 26 mmol/L (22-31) [facility] ANION GAP 10 mmol/L (7-16) [facility] UREA NITROGEN 14 mg/dL (7-24) [facility] CREATININE 0.94 mg/dL (0.80-1.30) [facility] BUN/CREAT RATIO 14.9 RATIO (10.0-20.0) [facility] GLUCOSE 106 mg/dL (70-99) H [facility] CALCIUM 9.2 mg/dL (8.4-10.2) [facility] GFR >60 ml/min/1.73m2 (>59) [facility] GFR ( AMER) >60 ml/min/1.73m2 (>59) [facility] GFR INTERPRETATION Lab [facility] [place] --NORMAL KIDNEY FUNCTION OR MILD DISEASE - GFR >OR= 60CHRONIC KIDNEY DISEASE - GFR 15 - 59RENAL FAILURE - GFR <15 Est. GFR calculation based on the MDRDstudy equation, which assumes a steadystate for creatinine. Est. GFR should notbe used for medication dosing. ID Date Data Source [id number] 02/24/2020 06:53:36 AM EST [facility] Name Value Range Interpretation Code Description Data Debbie rce(s) Supporting Document(s) WBC 7.4 10*3/uL (4.1-11.0) [facility] RBC 3.68 10*6/uL (4.60-6.10) L [facility] HGB 9.7 g/dL (13.5-18.0) L [facility] HCT 29.1 % (41.0-53.0) L [facility] PERFORMED AT [address] [place] [address] [place] [address] MCV 78.9 fL (80.0-95.0) L [facility] MCH 26.3 pg (27.0-32.0) L [facility] MCHC 33.3 g/dL (32.0-36.0) [facility] RDW 17.1 % (10.5-14.5) H [facility] PLT 391 10*3/uL (150-450) [facility] MPV 6.3 fL (7.1-10.7) L [facility] ID Date Data Source [id number] 02/19/2020 10:00:00 AM EST [facility] Name Value Range Interpretation Code Description Data Debbie rce(s) Supporting Document(s) SARS coronavirus 2 RNA Not Detected [facility] This lab was ordered by [facility] and reported by [facility]. ID Date Data Source H PYLORI SERUM QUANT IGM 01/24/2020 12:00:00 AM EST eCW1 ([facility]) Name Value Range Interpretation Code Description Data Debbie rce(s) Supporting Document(s) <9.0 0.0-8.9 H PYLORI SERUM QUANT IGM eCW1 ([facility]) ID Date Data Source H PYLORI SERUM QUANT IGA 01/24/2020 12:00:00 AM EST eCW1 ([facility]) Name Value Range Interpretation Code Description Data Debbie rce(s) Supporting Document(s) <9.0 0.0-8.9 H PYLORI SERUM QUANT IGA eCW1 ([facility]) ID Date Data Source H PYLORI SERUM QUANT IgG REINALDO 01/24/2020 12:00:00 AM EST eCW1 ([facility]) Name Value Range Interpretation Code Description Data Debbie rce(s) Supporting Document(s) 0.50 0.00-0.79 H PYLORI SERUM QUANT IgG REINALDO eCW1 ([facility]) ID Date Data Source [id number] 01/18/2020 11:54:00 AM EST [facility] Name Value Range Interpretation Code Description Data Debbie rce(s) Supporting Document(s) SARS coronavirus 2 RNA [Presence] in Res piratory specimen by RAD with probe detection [facility] This lab was ordered by [facility] a nd reported by [facility]. ID Date Data Source DDIMER QUANT 01/17/2020 12:00:00 AM EST eCW1 ([facility]) Name Value Range Interpretation Code Description Data Debbie rce(s) Supporting Document(s) 1365.93 <500 D-DIMER QUANT eCW1 ([facility]) ID Date Data Source MAGNESIUM LEVEL 01/17/2020 12:00:00 AM EST eCW1 ([facility]) Name Value Range Interpretation Code Description Data Debbie rce(s) Supporting Document(s) 2.4 1.8-2.4 MAGNESIUM LEVEL eCW1 ([facility]) ID Date Data Source CARDIAC MARKER PANEL 01/17/2020 12:00:00 AM EST eCW1 ([facility]) Name Value Range Interpretation Code Description Data Debbie rce(s) Supporting Document(s) 124 39-308 CPK CREATINE PHOSPHOKINASE eCW 1 ([facility]) 1.9 <3.6 CK-MB VALUE MASS eCW1 ([facility]) < 0.02 < 0.10 TROPONIN I eCW1 ([facility]) 1.53 < OR =4 MB/CK RELATIVE INDEX eCW1 ([facility]) ID Date Data Source C REACTIVE PROTEIN QUANTITATIV (At [facility]) 12/09/2019 12:00 :00 AM EDT eCW1 ([facility]) Name Value Range Interpretation Code Description Data Debbie rce(s) Supporting Document(s) 0.37 0.00-0.30 C REACTIVE PROTEIN QUANTI TATIV eCW1 ([facility]) ID Date Data Source ERYTHROCYTE SEDIMENTATION RATE 12/09/2019 12:00:00 AM EDT eC W1 ([facility]) Name Value Range Interpretation Code Description Data Debbie rce(s) Supporting Document(s) 8 0-20 ERYTHROCYTE SEDIMENTATION RATE eCW1 ([facility]) Procedure Social History Code Duration Value Status Description Data Source(s ) Smoking 10/08/2020 12:00:00 AM EDT Former Smoker completed Former Smoker eCW1 ([facility]) Smoking 10/08/2020 12:00:00 AM EDT Former Smoker completed Former Smoker eCW1 ([facility]) Smoking 10/08/2020 12:00:00 AM EDT Former Smoker completed Former Smoker eCW1 ([facility]) Smoking 10/08/2020 12:00:00 AM EDT Former Smoker completed Former Smoker eCW1 ([facility]) Alcohol intake 09/17/2020 12:00:00 AM EDT Ex-drinker (finding) comp leted Ex- drinker (finding) [facility] Smoking 08/06/2020 12:00:00 AM EDT Former Smoker completed Former Smoker eCW1 ([facility]) Smoking 08/06/2020 12:00:00 AM EDT Former Smoker completed Former Smoker eCW1 ([facility]) Smoking 08/06/2020 12:00:00 AM EDT Former Smoker completed Former Smoker eCW1 ([facility]) Alcohol intake 06/14/2020 12:00:00 AM EDT Ex-drinker (finding) comp leted Ex- drinker (finding) [facility] Smoking 05/30/2020 12:00:00 AM EDT Former Smoker completed Former Smoker eCW1 ([facility]) Smoking 05/30/2020 12:00:00 AM EDT Former Smoker completed Former Smoker eCW1 ([facility]) Smoking 05/30/2020 12:00:00 AM EDT Former Smoker completed Former Smoker eCW1 ([facility]) Alcohol intake 05/16/2020 12:00:00 AM EDT Not Currently completed [facility] Cigarette pack-years 05/16/2020 12:00:00 AM EDT UNK completed [facility] Cigarettes smoked current (pack per day) - Reported 05/17/19 12:00:00 AM EDT UNK completed [facility] Smoking 05/16/2020 12:00:00 AM EDT Former smoker completed Former smoker [facility] Cigarette pack-years 05/03/2020 12:00:00 AM EDT UNK completed [facility] Cigarettes smoked current (pack per day) - Reported 05/04/19 12:00:00 AM EDT UNK completed [facility] Smoking 05/03/2020 12:00:00 AM EDT Former smoker completed Former smoker [facility] Alcohol intake 05/03/2020 12:00:00 AM EDT Yes completed [facility] Alcohol intake 04/27/2020 12:00:00 AM EDT Yes completed [facility] Cigarette pack-years 04/27/2020 12:00:00 AM EDT UNK completed [facility] Cigarettes smoked current (pack per day) - Reported 04/28/19 12:00:00 AM EDT UNK completed [facility] Smoking 04/27/2020 12:00:00 AM EDT Former smoker completed Former smoker [facility] Alcohol intake 04/16/2020 12:00:00 AM EST Yes completed [facility] Cigarette pack-years 04/16/2020 12:00:00 AM EST UNK completed [facility] Cigarettes smoked current (pack per day) - Reported 04/17/19 12:00:00 AM EST UNK completed [facility] Smoking 04/16/2020 12:00:00 AM EST Former smoker completed Former smoker [facility] Smoking 04/13/2020 12:00:00 AM EST Former Smoker completed Former Smoker eCW1 ([facility]) Alcohol intake 04/02/2020 12:00:00 AM EST Yes completed [facility] Cigarette pack-years 04/02/2020 12:00:00 AM EST UNK completed [facility] Cigarettes smoked current (pack per day) - Reported 04/02/19 12:00:00 AM EST UNK completed [facility] Smoking 04/02/2020 12:00:00 AM EST Former smoker completed Former smoker [facility] Alcohol intake 03/15/2020 12:00:00 AM EST Yes completed [facility] Smoking 03/15/2020 12:00:00 AM EST Former smoker completed Former smoker [facility] Alcohol intake 02/24/2020 12:00:00 AM EST Yes completed [facility] Smoking 02/24/2020 12:00:00 AM EST Former smoker completed Former smoker [facility] Smoking 02/20/2020 12:00:00 AM EST Former Smoker completed Former Smoker eCW1 ([facility]) Smoking 02/20/2020 12:00:00 AM EST Former Smoker completed Former Smoker eCW1 ([facility]) Smoking 02/20/2020 12:00:00 AM EST Former Smoker completed Former Smoker eCW1 ([facility]) Smoking 02/20/2020 12:00:00 AM EST Former Smoker completed Former Smoker eCW1 ([facility]) Tobacco use and exposure 02/09/2020 12:00:00 AM EST Never used co mpleted Never used [facility] Cigarette pack-years 02/09/2020 12:00:00 AM EST UNK completed [facility] Cigarettes smoked current (pack per day) - Reported 02/09/20 20 12:00:00 AM EST UNK completed [facility] Smoking 02/09/2020 12:00:00 AM EST Former smoker completed Former smoker [facility] Alcohol intake 02/09/2020 12:00:00 AM EST Yes completed [facility] Smoking 02/09/2020 12:00:00 AM EST Former smoker completed Former smoker [facility] Smoking 02/06/2020 12:00:00 AM EST Former Smoker completed Former Smoker eCW1 ([facility]) Smoking 02/06/2020 12:00:00 AM EST Former Smoker completed Former Smoker eCW1 ([facility]) Smoking 02/06/2020 12:00:00 AM EST Former Smoker completed Former Smoker eCW1 ([facility]) Smoking 02/06/2020 12:00:00 AM EST Former Smoker completed Former Smoker eCW1 ([facility]) Smoking 01/16/2020 12:00:00 AM EST Former Smoker completed Former Smoker eCW1 ([facility]) Smoking 01/16/2020 12:00:00 AM EST Former Smoker completed Former Smoker eCW1 ([facility]) Smoking 01/16/2020 12:00:00 AM EST Former Smoker completed Former Smoker eCW1 ([facility]) Smoking 01/16/2020 12:00:00 AM EST Former Smoker completed Former Smoker eCW1 ([facility]) Smoking 12/15/2019 12:00:00 AM EST Patient is a former smoker completed Patient is a former smoker MEDENT ([facility]) Smoking 12/09/2019 12:00:00 AM EDT Former Smoker completed Former Smoker [email or web address] ([facility]) Smoking 12/09/2019 12:00:00 AM EDT Former Smoker completed Former Smoker eCW1 ([facility]) Smoking 12/09/2019 12:00:00 AM EDT Former Smoker completed Former Smoker eCW1 ([facility]) Vital Signs ID Date Data Source UNK Name Value Range Interpretation Code Description Data Source(s) Body surface area Derived from formula 2.17 m2 2.17 m2 [facility] ([facility]) Body weight 214.50 [lb_av] 214.50 [lb_av] MEDEN T ([facility]) Body mass index (BMI) [Ratio] 29.9 kg/m2 29.9 k g/m2 [facility] ([facility]) [place] body weight 172 [lb_av] 172 [lb_av] MEDEN T ([facility]) Body weight 97.297 kg 97.297 kg [facility] ([facility]) Heart rate 78 /min 78 /min [facility] ([facility]) Body temperature 97.3 [degF] 97.3 [degF] [facility] ([facility]) Body height 71 [in_i] 71 [in_i] [facility] ([facility]) 5'11" Body weight 215 [lb_av] 215 [lb_av] eCW1 ([facility]) Body height [in_i] eCW1 ([facility]) Body mass index (BMI) [Ratio] 29.98 kg/m2 29.98 kg/m2 W1 ([facility]) Heart rate 71 /min 71 /min eCW1 ([facility]) Respiratory rate 18 /min 18 /min eCW1 ([facility]) Body temperature 95.4 [degF] 95.4 [degF] eCW1 ( [facility]) Systolic blood pressure 132 mm[Hg] 132 mm[Hg] e CW1 ([facility]) Diastolic blood pressure 68 mm[Hg] 68 mm[Hg] eCW1 ([facility]) Body weight 97.523 kg 97.523 kg [facility] Body mass index (BMI) [Ratio] 29.99 kg/m2 29.99 kg/m2 [facility] Oxygen saturation in Arterial blood by Pulse oximetry 94 % 94 % [facility] Systolic blood pressure 138 mm[Hg] 138 mm[Hg] [facility] Diastolic blood pressure 88 mm[Hg] 88 mm[Hg] [facility] Heart rate 69 /min 69 /min [facility] Body height 180.3 cm 180.3 cm [facility] Body weight 214 [lb_av] 214 [lb_av] eCW1 ([facility] [facility] Body height [in_i] eCW1 ([facility]) Body mass index (BMI) [Ratio] 29.84 kg/m2 29.84 kg/m2 eCW1 ([facility]) Heart rate 75 /min 75 /min eCW1 ([facility]) Respiratory rate 18 /min 18 /min eCW1 ([facility]) Body temperature 97.5 [degF] 97.5 [degF] eCW1 ( [facility]) Systolic blood pressure 128 mm[Hg] 128 mm[Hg] e CW1 ([facility]) Diastolic blood pressure 82 mm[Hg] 82 mm[Hg] eCW1 ([facility]) Body height 71 [in_i] 71 [in_i] MEDFELISHA ([facility], ) 5'11" Body weight 206.12 [lb_av] 206.12 [lb_av] MEDEN T ([facility], ) Body mass index (BMI) [Ratio] 28.7 kg/m2 28.7 k g/m2 MEDFELISHA ([facility], ) [place] body weight 172 [lb_av] 172 [lb_av] MEDEN T ([facility], ) Body weight 93.498 kg 93.498 kg GABRIEL ([facility], ) Body surface area Derived from formula 2.14 m2 2.14 m2 [facility] ([facility]) Systolic blood pressure 162 mm[Hg] 162 mm[Hg] [facility]) Diastolic blood pressure 88 mm[Hg] 88 mm[Hg] [facility] ([facility]) Body surface area Derived from formula 2.14 m2 2.14 m2 [facility] ([facility]) Body height 71 [in_i] 71 [in_i] [facility] ([facility]) 5'11" Body weight 206.12 [lb_av] 206.12 [lb_av] MEDEN T ([facility]) Body mass index (BMI) [Ratio] 28.7 kg/m2 28.7 k g/m2 [facility] ([facility]) [place] body weight 172 [lb_av] 172 [lb_av] MEDEN T ([facility]) Body weight 93.498 kg 93.498 kg [facility] ([facility]) Systolic blood pressure 130 mm[Hg] 130 mm[Hg] [facility] Diastolic blood pressure 78 mm[Hg] 78 mm[Hg] [facility] Heart rate 71 /min 71 /min [facility] Body height 180.3 cm 180.3 cm [facility] Body weight 96.616 kg 96.616 kg [facility] Body mass index (BMI) [Ratio] 29.71 kg/m2 29.71 kg/m2 [facility] Oxygen saturation in Arterial blood by Pulse oximetry 96 % 96 % [facility] Body weight 208 [lb_av] 208 [lb_av] eCW1 ([facility]) Body height [in_i] eCW1 ([facility]) Diastolic blood pressure 80 mm[Hg] 80 mm[Hg] W1 ([facility]) Body mass index (BMI) [Ratio] 29.01 kg/m2 29.01 kg/m2 [facility] ([facility]) Heart rate 86 /min 86 /min W1 ([facility]) Respiratory rate 20 /min 20 /min eCW1 ([facility]) Body temperature 97.3 [degF] 97.3 [degF] eCW1 ( [facility]) Systolic blood pressure 130 mm[Hg] 130 mm[Hg] e CW1 ([facility]) Heart rate 84 /min 84 /min [facility] Systolic blood pressure 126 mm[Hg] 126 mm[Hg] [facility] Diastolic blood pressure 76 mm[Hg] 76 mm[Hg] [facility] Body height 180.3 cm 180.3 cm [facility] Body weight 92.08 kg 92.08 kg [facility] Body mass index (BMI) [Ratio] 28.31 kg/m2 28.31 kg/m2 [facility] Oxygen saturation in Arterial blood by Pulse oximetry 96 % 96 % [facility] Systolic blood pressure 141 mm[Hg] 141 mm[Hg] [facility] Diastolic blood pressure 71 mm[Hg] 71 mm[Hg] [facility] Heart rate 89 /min 89 /min [facility] Body temperature 36.[address] [facility] Respiratory rate 18 /min 18 /min [facility] Oxygen saturation in Arterial blood by Pulse oximetry 97 % 97 % [facility] Body weight 98 kg 98 kg [facility] Body mass index (BMI) [Ratio] 30.13 kg/m2 30.13 kg/m2 [facility] Body height 180.3 cm 180.3 cm [facility] Systolic blood pressure 136 mm[Hg] 136 mm[Hg] [facility] Diastolic blood pressure 69 mm[Hg] 69 mm[Hg] [facility] Heart rate 70 /min 70 /min [facility] Body height 180.3 cm 180.3 cm [facility] Body weight 97.569 kg 97.569 kg [facility] Body mass index (BMI) [Ratio] 30.00 kg/m2 30.00 kg/m2 [facility] Oxygen saturation in Arterial blood by Pulse oximetry 97 % 97 % [facility] Oxygen saturation in Arterial blood by Pulse oximetry 95 % 95 % [facility] Systolic blood pressure 152 mm[Hg] 152 mm[Hg] [facility] Diastolic blood pressure 78 mm[Hg] 78 mm[Hg] [facility] Heart rate 88 /min 88 /min [facility] Body height 177.8 cm 177.8 cm [facility] Body weight 97.523 kg 97.523 kg [facility] Body mass index (BMI) [Ratio] 30.85 kg/m2 30.85 kg/m2 [facility] Body weight 211.0 [lb_av] 211.0 [lb_av] eCW1 ([facility]) Body height [in_i] eCW1 ([facility]) Body mass index (BMI) [Ratio] 29.43 kg/m2 29.43 kg/m2 [facility] ([facility]) Heart rate 99 /min 99 /min W1 ([facility]) Respiratory rate 20 /min 20 /min W1 ([facility]) Body temperature 98.1 [degF] 98.1 [degF] eCW1 ( [facility]) Systolic blood pressure 122 mm[Hg] 122 mm[Hg] e CW1 ([facility]) Diastolic blood pressure 68 mm[Hg] 68 mm[Hg] eCW1 ([facility]) Systolic blood pressure 151 mm[Hg] 151 mm[Hg] M EDENT ([facility], ) Diastolic blood pressure 73 mm[Hg] 73 mm[Hg] MEDENT ([facility], ) Body height 71 [in_i] 71 [in_i] MEDENT ([facility], ) 5'11" Body weight 214.00 [lb_av] 214.00 [lb_av] MEDEN T ([facility], ) [place] body weight 172 [lb_av] 172 [lb_av] MEDEN T ([facility]) Body mass index (BMI) [Ratio] 29.8 kg/m2 29.8 k g/m2 MEDENT ([facility]) Body weight 97.070 kg 97.070 kg [facility] ([facility]) Body surface area Derived from formula 2.17 m2 2.17 m2 [facility] ([facility]) Systolic blood pressure 130 mm[Hg] 130 mm[Hg] [facility] Heart rate 75 /min 75 /min [facility] Diastolic blood pressure 66 mm[Hg] 66 mm[Hg] [facility] Body height 180.3 cm 180.3 cm [facility] Body weight 99.338 kg 99.338 kg [facility] Body mass index (BMI) [Ratio] 30.54 kg/m2 30.54 kg/m2 [facility] Oxygen saturation in Arterial blood by Pulse oximetry 96 % 96 % [facility] Systolic blood pressure 137 mm[Hg] 137 mm[Hg] [facility] Diastolic blood pressure 69 mm[Hg] 69 mm[Hg] [facility] Heart rate 86 /min 86 /min [facility] Body temperature 36.[address] [facility] Respiratory rate 16 /min 16 /min [facility] Oxygen saturation in Arterial blood by Pulse oximetry 98 % 98 % [facility] Body height 180.3 cm 180.3 cm [facility] Body weight 94.3 kg 94.3 kg [facility] Body mass index (BMI) [Ratio] 29.00 kg/m2 29.00 kg/m2 [facility] Body weight 213 [lb_av] 213 [lb_av] eCW1 ([facility]) Body height [in_i] eCW1 ([facility]) Body mass index (BMI) [Ratio] 29.70 kg/m2 29.70 kg/m2 eCW1 ([facility]) Heart rate 97 /min 97 /min eCW1 ([facility]) Respiratory rate 18 /min 18 /min eCW1 ([facility]) Body temperature 98.0 [degF] 98.0 [degF] eCW1 ( [facility]) Systolic blood pressure 128 mm[Hg] 128 mm[Hg] e CW1 ([facility]) Diastolic blood pressure 78 mm[Hg] 78 mm[Hg] eCW1 ([facility]) Systolic blood pressure 118 mm[Hg] 118 mm[Hg] [facility] Diastolic blood pressure 62 mm[Hg] 62 mm[Hg] [facility] Heart rate 89 /min 89 /min [facility] Body height 180.3 cm 180.3 cm [facility] Body weight 96.616 kg 96.616 kg [facility] Body mass index (BMI) [Ratio] 29.71 kg/m2 29.71 kg/m2 [facility] Oxygen saturation in Arterial blood by Pulse oximetry 96 % 96 % [facility] Body weight 211.4 [lb_av] 211.4 [lb_av] W1 ([facility]) Body height [in_i] W1 ([facility]) Body mass index (BMI) [Ratio] 29.48 kg/m2 29.48 kg/m2 W1 ([facility]) Heart rate 105 /min 105 /min eCW1 ([facility]) Respiratory rate 18 /min 18 /min eCW1 ([facility]) Body temperature 97.7 [degF] 97.7 [degF] eCW1 ( [facility]) Systolic blood pressure 130 mm[Hg] 130 mm[Hg] e CW1 ([facility]) Diastolic blood pressure 70 mm[Hg] 70 mm[Hg] eCW1 ([facility]) Body weight 214.2 [lb_av] 214.2 [lb_av] eCW1 ([facility]) Body height [in_i] eCW1 ([facility]) Body mass index (BMI) [Ratio] 29.87 kg/m2 29.87 kg/m2 eCW1 ([facility]) Heart rate 103 /min 103 /min eCW1 ([facility]) Respiratory rate 18 /min 18 /min eCW1 ([facility]) Body temperature 98.6 [degF] 98.6 [degF] eCW1 ( [facility]) Systolic blood pressure 150 mm[Hg] 150 mm[Hg] e CW1 ([facility]) Diastolic blood pressure 70 mm[Hg] 70 mm[Hg] eCW1 ([facility]) [place] body weight 172 [lb_av] 172 [lb_av] MEDEN T ([facility], ) Systolic blood pressure 136 mm[Hg] 136 mm[Hg] M EDENT ([facility], ) L arm 133/77 Diastolic blood pressure 82 mm[Hg] 82 mm[Hg] [facility] L arm 133/77 Body height 71 [in_i] 71 [in_i] [facility] ([facility]) 5'11" Body weight 96.674 kg 96.674 kg [facility] ([facility]) Body weight 213.12 [lb_av] 213.12 [lb_av] MEDEN T ([facility]) Body mass index (BMI) [Ratio] 29.7 kg/m2 29.7 k g/m2 [facility] ([facility]) Body surface area Derived from formula 2.17 m2 2.17 m2 [facility] ([facility]) Body weight 213.0 [lb_av] 213.0 [lb_av] eCW1 ([facility]) Body height [in_i] eCW1 ([facility]) Body mass index (BMI) [Ratio] 29.70 kg/m2 29.70 kg/m2 W1 ([facility]) Heart rate 97 /min 97 /min eCW1 ([facility]) Respiratory rate 18 /min 18 /min eCW1 ([facility]) Body temperature 97.4 [degF] 97.4 [degF] eCW1 ( [facility]) Systolic blood pressure 162 mm[Hg] 162 mm[Hg] e CW1 ([facility]) Diastolic blood pressure 78 mm[Hg] 78 mm[Hg] eCW1 ([facility]) Patient Treatment Plan of Care Planned Activity Planned Date Details Description Data Source (s) atorvastatin 80 MG Oral Tablet 10/08/2020 12:00:00 AM EDT eCW1 ([facility]) Nortriptyline 25 MG Oral Capsule 10/08/2020 12:00:00 AM EDT eCW1 ([facility]) atorvastatin 80 MG Oral Tablet 10/08/2020 12:00:00 AM EDT eCW1 ([facility]) Nortriptyline 25 MG Oral Capsule 10/08/2020 12:00:00 AM EDT eCW1 ([facility]) atorvastatin 80 MG Oral Tablet 10/08/2020 12:00:00 AM EDT eCW1 ([facility]) Nortriptyline 25 MG Oral Capsule 10/08/2020 12:00:00 AM EDT eCW1 ([facility]) atorvastatin 80 MG Oral Tablet 10/08/2020 12:00:00 AM EDT eCW1 ([facility]) Nortriptyline 25 MG Oral Capsule 10/08/2020 12:00:00 AM EDT eCW1 ([facility]) atorvastatin 40 MG Oral Tablet 08/29/2020 12:00:00 AM EDT [facility] clopidogrel 75 MG Oral Tablet 08/24/2020 12:00:00 AM EDT [facility] Acetaminophen 325 MG Oral Tablet 08/06/2020 12:00:00 AM EDT eCW1 ([facility]) Acetaminophen 325 MG Oral Tablet 08/06/2020 12:00:00 AM EDT eCW1 ([facility]) Acetaminophen 325 MG Oral Tablet 08/06/2020 12:00:00 AM EDT eCW1 ([facility]) Ascorbic Acid 500 MG Oral Tablet 05/07/2020 12:00:00 AM EDT [facility] Daily Izabela (THERAGRAN) per tablet 05/07/2020 12:00:00 AM EDT [facility] Docusate Sodium 100 MG Oral Capsule 05/07/2020 12:00:00 AM EDT [facility] Folic Acid 1 MG Oral Tablet 05/07/2020 12:00:00 AM EDT [facility] Furosemide 40 MG Oral Tablet 05/07/2020 12:00:00 AM EDT [facility] atorvastatin 40 MG Oral Tablet 05/07/2020 12:00:00 AM EDT [facility] Acetaminophen 325 MG / Oxycodone Hydrochloride 5 MG Or al Tablet 05/06/2020 12:00:00 AM EDT [facility] ferrous gluconate 324 MG Oral Tablet 05/06/2020 12:00:00 AM EDT [facility] Metoprolol Tartrate 25 MG Oral Tablet 05/06/2020 12:00:00 AM EDT [facility] potassium chloride SA (K-DUR,KLOR-CON) 20 MEQ tablet 021 12:00:00 AM EDT [facility] Diclofenac Sodium 0.01 MG/MG Topical Gel 04/13/2020 12:00:00 AM EST [facility] Lisinopril 40 MG Oral Tablet 02/26/2020 12:00:00 AM EST [facility] Chlorthalidone 25 MG Oral Tablet 02/26/2020 12:00:00 AM EST [facility] Lisinopril 40 MG Oral Tablet 01/18/2020 12:00:00 AM EST [facility] Chlorthalidone 25 MG Oral Tablet 01/18/2020 12:00:00 AM EST [facility] Citalopram 40 MG Oral Tablet 01/18/2020 12:00:00 AM EST [facility] Sucralfate 1000 MG Oral Tablet 01/18/2020 12:00:00 AM EST [facility] Tamsulosin hydrochloride 0.4 MG Oral Capsule 01/18/2020 12:00:00 AM EST [facility] Sucralfate 1000 MG Oral Tablet [Carafate] 01/17/2020 12:00:00 AM ES T eCW1 ([facility]) Sucralfate 1000 MG Oral Tablet [Carafate] 01/17/2020 12:00:00 AM ES T eCW1 ([facility]) Sucralfate 1000 MG Oral Tablet [Carafate] 01/17/2020 12:00:00 AM ES T eCW1 ([facility]) Sucralfate 1000 MG Oral Tablet [Carafate] 01/17/2020 12:00:00 AM ES T eCW1 ([facility]) Mirtazapine 7.5 MG Oral Tablet 01/16/2020 12:00:00 AM EST eCW1 ([facility]) Mirtazapine 7.5 MG Oral Tablet 01/16/2020 12:00:00 AM EST [facility] Mirtazapine 7.5 MG Oral Tablet 01/16/2020 12:00:00 AM EST eCW1 ([facility]) Mirtazapine 7.5 MG Oral Tablet 01/16/2020 12:00:00 AM EST eCW1 ([facility]) Mirtazapine 7.5 MG Oral Tablet 01/16/2020 12:00:00 AM EST eCW1 ([facility]) atorvastatin 40 MG Oral Tablet 12/09/2019 12:00:00 AM EDT [facility] Tamsulosin hydrochloride 0.4 MG Oral Capsule [Flomax] 12/09/2019 12:00:00 AM EDT eCW1 ([facility]) Tamsulosin hydrochloride 0.4 MG Oral Capsule [Flomax] 12/09/2019 12:00:00 AM EDT eCW1 ([facility]) Nortriptyline 25 MG Oral Capsule 12/09/2019 12:00:00 AM EDT [facility] Tamsulosin hydrochloride 0.4 MG Oral Capsule [Flomax] 12/09/2019 12:00:00 AM EDT eCW1 ([facility]) atorvastatin 80 MG Oral Tablet 10/18/2019 12:00:00 AM EDT [facility] Lidocaine Hydrochloride 40 MG/ML Topical Cream 02/04/2018 12:00:00 AM EST [facility] Multiple Vitamin tablet 02/04/2018 12:00:00 AM EST [facility] clopidogrel 75 MG Oral Tablet 01/30/2015 12:00:00 AM EST [facility] Acetaminophen 325 MG / Hydrocodone Bitartrate 10 MG Or al Tablet 01/30/2015 12:00:00 AM [facility]
[2020-12-13] MEDS ORDERED: POTASSIUM CHLORIDE 10MEQ SR TABLET PO ONE ×2 (00:20→04:20)
--- NOTE | 2020-12-13 00:34 | HPEPDOC ---
[facility] Medical History & Physical Date of Admission Dec 13, 2020 Date of Service: Dec 13, 2020 Attending Physician: DONAVAN PUTNAM MD History and Physical CHIEF COMPLAINT: Syncope HISTORY OF PRESENT ILLNESS: Horace is a 60-year-old male who presents following two syncopal episodes over the last 3 days. He tells me he initially has "passed out" 2 days ago and then did so again today. Reports loss of consciousness for no more than 1min. Denies hitting head, loss of bowels or urination. He tells me that he has had issues with syncope before but that it was related to his aortic stenosis, which resolved following AVR 04/2020. Reports mildly productive cough of yellow mucus. Denies recent illness, recent travel, changes in diet. Denies fevers/chills, fatigue, headache, changes in vision, hemoptysis. Denies chest pain, palpitations, shortness of breath, abdominal pain, nausea/vomiting, changes in sensation. In ED, VSS, CBC WNL. CMP significant for Na+ 128, K+ 3.4, Cl- 94. POC troponin 0 0.01. EKG NSR. Imaging unremarkable, as noted below. ED provider discussed case with Cardiology (Dr. Blue) who recommended telemetry and echocardiogram to be performed. PAST MEDICAL HISTORY: 1. s/p AVR. 2. HTN. 3. HLD 4. GERD 5. RA 6. Depression/anxiety 7. Anemia PAST SURGICAL HISTORY: 1. T&A 2. AVR (04/2020, Dr. Bernabe @ [facility]) 3. Arterial stent placement in right thigh 4. Appendectomy 5. B/l hydrocelectomy 6. Cervical and lumbar disc fusion w/ hardware SOCIAL HISTORY: Marital status: . Resides in: Apartment Tobacco use: Former smoker, quit 1 year ago, 40pack year history ETOH: Current daily drinker, average 34 beers/day. Last drink this afternoon Illicit drug use: Current marijuana use, smokes "a couple times/day" FAMILY HISTORY: Heart disease ALLERGIES: Please see below. REVIEW OF SYSTEMS: CONSTITUTIONAL: Denies fever/chills, fatigue. HEENT: Denies headache, lightheadedness, changes in vision, rhinorrhea, nasal congestion, sore throat. CARDIOVASCULAR: Denies chest pain, palpitations. RESPIRATORY: Reports mildly productive cough. Denies shortness of breath, wheezing. GASTROINTESTINAL: Denies abdominal pain, nausea/vomiting, constipation, diarrhea. GENITOURINARY: Denies changes in urination, dysuria, hesitancy, frequency. SKIN: Denies bruising/bleeding. MUSCULOSKELETAL: Denies muscle ache, joint pain. NEUROLOGICAL: Denies changes in sensation, numbness/tingling. PSYCHIATRIC: Denies depressed/anxious mood. HOME MEDICATIONS: Please see below. PHYSICAL EXAMINATION: VITAL SIGNS: Temperature 97.9, pulse 71, respiratory rate 18, blood pressure 111/72, pulse oximetry 96% on room air. GENERAL APPEARANCE: Alert, awake, laying in stretcher, NAD. HEENT: NC/AT, EOMI, no scleral icterus, nares patent, moist mucous membranes, upper and lower dentures. CARDIOVASCULAR: RRR, normal heart sounds, no MRG. LUNGS: CTA bilaterally, no WRR, no accessory muscles used. ABDOMEN: Soft, nontender, nondistended. MUSCULOSKELETAL: Normal ROM, strength 5/5. EXTREMITIES: No edema/cyanosis, 2+ PT pulses palpated. NEUROLOGICAL: CN III-XII intact, sensation intact. PSYCHIATRIC: No depressed/anxious mood. LABORATORY DATA: See below. IMAGING: CXR (12/12) No acute findings. The lung lagunas remain clear. CT cervical spine (12/12) No acute traumatic findings. CT head (01/08) No acute intracranial pathology. The brain had a similar appearance in 2019. MICROBIOLOGY: Please see below. ASSESSMENT/PLAN: Horace is a 60-year-old male PMH ASD s/p AVR (04/2020), HTN, HLD, EtOH abuse who presents following two syncopal episodes over past 3 days, found to have electrolyte imbalance and admitted for further work-up of syncope. #Syncope 2/2 aortic stenosis In ED, EKG NSR. Order echocardiogram Orthostats pending On telemetry No cardiology consult needed at this time. #Hyponatremia and hypochloremia, asx, most likely 2/2 chronic EtOH abuse In ED, Na+ 128, Cl- 94. Patient has chronic hyponatremia (Na+ low 130s). Order 1L normal saline Monitor with daily labs #Hypokalemia, acute, asx In ED, K+ 3.4 Order 60 mg KCl Monitor with daily labs #EtOH abuse, chronic Patient tells me he drinks "on average 34 beers/day" and his last drink was this afternoon. No signs or symptoms of withdrawal during evaluation. CIWA protocol Continue home folic acid 1 mg # s/p AVR Patient tells me he had AVR 04/[address] Bernabe at [facility]. Continue home Plavix 75 mg Patient will need to f/u with his pocket cutter (Dr. Villaseñor) following discharge. #HTN, chronicstable BP 111/72 Continue home chlorthalidone 25 mg, lisinopril 60 mg, metoprolol 25 mg #HLD, chronic Continue home Lipitor 80 mg #GERD, chronicstable Continue home pantoprazole 40 mg twice daily #Depression/anxiety, chronicstable Continue home nortriptyline 35 mg, mirtazapine 15 mg, Celexa 40 mg #DVT prophylaxis Start Lovenox DIET: Regular ACTIVITY: OOb w/ assisted ambulation, fall risk precautions DISPO: Pending further w/u, expect < 2 midnights CODE STATUS: Full code Vital Signs Vital Signs Date Time Temp Pulse Resp B/P (MAP) Pulse Ox O2 Delivery O2 Flow Rate FiO2 12/12/20 23:45 79 135/78 (97) 96 12/12/20 22:30 97.9 18 Room Air Laboratory Data Labs 24H Laboratory Tests 2 12/12/20 17:49: Immature Granulocyte % (Auto) 0.6, Neutrophils (%) (Auto) 65.2, Lymphocytes (%) (Auto) 21.9L, Monocytes (%) (Auto) 11.1H, Eosinophils (%) (Auto) 0.7, Basophils (%) (Auto) 0.5, Neutrophils # (Auto) 7.1, Lymphocytes # (Auto) 2.4, Monocytes # (Auto) 1.2H, Eosinophils # (Auto) 0.1, Basophils # (Auto) 0.1, Nucleated Red Blood Cells % (auto) 0.0, Anion Gap 10, Glomerular Filtration Rate > 60.0, Calcium Level 9.5, Total Bilirubin 0.4, Aspartate Amino Transf (AST/SGOT) 30, A lanine Aminotransferase (ALT/SGPT) 42, Alkaline Phosphatase 140H, Total Protein 7.2, Albumin 3.9, Albumin/Globulin Ratio 1.2 12/12/20 18:05: POC Troponin I (Misc) 0.01 12/12/20 23:31: CBC/BMP Laboratory Tests 12/12/20 17:49 Home Medications Scheduled Atorvastatin Calcium (Atorvastatin Calcium) 80 Mg Tablet, 80 MG PO DAILY Baclofen (Baclofen) 20 Mg Tablet, 20 MG PO QHS Citalopram Hydrobromide (Celexa) 40 Mg Tab, 40 MG PO DAILY Clopidogrel Bisulfate (Plavix) 75 Mg Tab, 75 MG PO DAILY Ferrous Gluconate (Ferrous Gluconate) 324 Mg Tablet, 324 MG PO QPM TAKES AT DINNERTIME Folic Acid (Folic Acid) 1 Mg Tablet, 1 MG PO DAILY Lisinopril (Lisinopril) 40 Mg Tablet, 40 MG PO DAILY Metoprolol Tartrate (Metoprolol Tartrate) 25 Mg Tablet, 25 MG PO DAILY Mirtazapine (Mirtazapine) 7.5 Mg Tablet, 15 MG PO QHS Multivitamins (Thera M Plus Tablet) 1 Each Tablet, 1 TAB PO DAILY Nortriptyline HCl (Nortriptyline HCl) 10 Mg Capsule, 10 MG PO DAILY TAKES WITH 25MG FOR 35MG TOTAL Nortriptyline HCl (Nortriptyline HCl) 25 Mg Capsule, 25 MG PO DAILY TAKES WITH 10MG FOR 35MG TOTAL Pantoprazole Sodium (Pantoprazole Sodium) 40 Mg Tablet.dr, 40 MG PO BID Sucralfate (Sucralfate) 1 Gm Tablet, 1 GM PO DAILY Scheduled PRN Diclofenac Sodium (Diclofenac Sodium) 1% 100GM Gel..gram., 1 DOSE TOP QID PRN for MILD PAIN (PS 1-4) APPLY TO SHOULDERS Allergies Coded Allergies: No Known Allergies (Unverified , 05/04/18) A-FIB/CHADSVASC A-FIB History Current/History of A-Fib/PAF?: No GME ATTESTATION GME ATTESTATION My faculty preceptor for this patient encounter was physically present during the encounter and was fully available. All aspects of the patient interview, examination, medical decision making process, and medical care plan development were reviewed and approved by the faculty preceptor. The faculty preceptor is aware and concurs with the plan as stated in the body of this note and will attest to such by his/her cosignature. ATTENDING NOTE I, A Yousef, have independently examined this patient and performed my own physi morro exam, as well as reviewed the documentation and edited where necessary. I have discussed in detail with the resident / student the findings and plan of treatment as documented by the resident / student and edited their note. I agree with their findings and treatment plan and have edited their documentation. I will continue to follow the patient during this hospital stay. ER spoke to cardiology who recommended syncope workup Syncope could be related to recent surgery for aortic valve replacement. Syncope workup. daydream to discuss with cardiology Amalia Tineo DO Dec 13, 2020 00:34 DONAVAN PUTNAM MD Dec 16, 2020 06:41
[2020-12-13 00:49] LABS: RSV AMPLIFICATION NEGATIVE (NEGATIVE)
[2020-12-13] MEDS: BACLOFEN 10 MG TAB PO SCH ×2 (01:05→20:04)
[2020-12-13] MEDS: MIRTAZAPINE 15 MG TAB PO SCH ×2 (01:05→20:03)
[2020-12-13] MEDS: PANTOPRAZOLE 40MG TAB (PROTONIX) PO SCH ×3 (01:05→20:03)
[2020-12-13 06:46] LABS: HEMATOCRIT 40.8 % (42.0-52.0); HEMOGLOBIN 14.1 g/dl (13.5-17.5); MEAN CORPUSCULAR HEMOGLOBIN 31.4 pg (27.0-33.0); MEAN CORPUSCULAR HGB CONC 34.6 g/dl (32.0-36.5); MEAN CORPUSCULAR VOLUME 90.9 fl (80.0-96.0); PLATELET COUNT, AUTOMATED 308 10^3/uL (150-450); RED BLOOD COUNT 4.49 10^6/uL (4.30-6.10)
[2020-12-13 07:08] LABS: BLOOD UREA NITROGEN 10 MG/DL (7-18); CALCIUM LEVEL 9.1 MG/DL (8.8-10.2); CARBON DIOXIDE LEVEL 28 MEQ/L (21-32); CHLORIDE LEVEL 96 MEQ/L (98-107); CREATININE FOR GFR 0.71 MG/DL (0.70-1.30); GLOMERULAR FILTRATION RATE > 60.0 (>49); GLUCOSE, FASTING 90 MG/DL (70-100); SODIUM LEVEL 131 MEQ/L (136-145)
[2020-12-13] MEDS ORDERED: MULTIVITAMINS/MINERALS THERAP 1 TAB PO SCH (09:00)
[2020-12-13] MEDS ORDERED: CHLORTHALIDONE 25 MG TAB PO SCH (09:00)
[2020-12-13] MEDS ORDERED: FOLIC ACID 1 MG TAB PO SCH (09:00)
[2020-12-13] MEDS ORDERED: lisinopriL 40 MG TAB PO SCH (09:00)
[2020-12-13] MEDS: NORTRIPTYLINE 25 MG CAP PO SCH (09:00)
--- NOTE | 2020-12-13 09:47 | ECGEPIP ---
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
[2020-12-13] MEDS: SUCRALFATE 1 GM TAB PO SCH (10:06)
[2020-12-13] MEDS: MULTIVITAMINS/MINERALS THERAP 1 TAB PO SCH (10:06)
[2020-12-13] MEDS: lisinopriL 40 MG TAB PO SCH (10:06)
[2020-12-13] MEDS: CLOPIDOGREL 75 MG TAB PO SCH (10:06)
[2020-12-13] MEDS: THIAMINE 100 MG TAB PO SCH ×2 (10:06→20:03)
[2020-12-13] MEDS: METOPROLOL TART 25 MG TABLET PO SCH (10:07)
[2020-12-13] MEDS: FOLIC ACID 1 MG TAB PO SCH (10:07)
[2020-12-13] MEDS: ENOXAPARIN 40MG/0.4ML SYRINGE (J1650 PER 10MG) SC SCH (10:08)
[2020-12-13] MEDS: ATORVASTATIN 20 MG TAB PO SCH (10:08)
[2020-12-13] MEDS: NORTRIPTYLINE 10 MG CAP PO SCH (10:08)
[2020-12-13] MEDS: CitaloPRAM (CeleXA) 20 MG TAB PO SCH (10:08)
--- NOTE | 2020-12-13 11:24 | IPNPDOC ---
Date Seen The patient was seen on 12/13/20. Progress Note Subjective: Patient denies any lightheadedness dizziness chest pain pressure tightness shortness of breath this morning. Orthostatic vitals have been ordered. Objective: PHYSICAL EXAMINATION: VITAL SIGNS: See below GENERAL APPEARANCE: Sitting at 45 degree head of bed elevation in no distress sp eaks in full sentences HEENT: No JVD thyromegaly icterus jaundice cyanosis pallor or cervical lympha denopathy no carotid bruit No stridor CARDIOVASCULAR: S1-S2 sinus rhythm LUNGS: Air entry is equal bilaterally clear to auscultation no wheezing rales or rhonchi ABDOMEN: Positive bowel sounds x4 quadrants obese no hepatosplenomegaly soft, nontender, nondistended. EXTREMITIES: No edema/cyanosis, 2+ PT pulses palpated. LABORATORY DATA: See below. IMAGING: CXR (12/12) No acute findings. The lung lagunas remain clear. CT cervical spine (12/12) No acute traumatic findings. CT head (01/08) No acute intracranial pathology. The brain had a similar appearance in 2019. MICROBIOLOGY: Please see below. ASSESSMENT/PLAN: Horace is a 60-year-old male PMH ASD s/p AVR (04/2020), HTN, HLD, EtOH abuse presents emergency room with recurrent syncope at home over the past 3 days which last for few minutes Without postictal confusion tonic-clonic movements tongue biting urine or bowel incontinence. Recurrent syncope -Patient is admitted to medical surgical floor under telemetry monitoring, check two-dimensional echocardiogram, carotid Dopplers, EEG. -Patient may need a Holter or [facility] monitor as outpatient. He says he sees Dr. rapp utilities estimator and drafter as outpatient will need to order after hospital discharge Alcohol abuse -On CIWA protocol as needed Ativan multivitamin thiamine folate -Monitor for alcohol withdrawal, seizures s/p AVR On Plavix HTN, chronicstable Check for orthostatic hypotension Hold diuretics if patient is orthostatic HLD, chronic Continue home Lipitor 80 mg GERd pantoprazole 40 mg twice daily Depression/anxiety, chronicstable Continue home nortriptyline 35 mg, mirtazapine 15 mg, Celexa 40 mg DVT prophylaxis Start Lovenox DIET: Regular ACTIVITY: OOb w/ assisted ambulation, fall risk precautions DISPO: Discharge in a.m. if negative work-up. VS, I&O, 24H, [facility] Vital Signs/I&O Vital Signs Date Time Temp Pulse Resp B/P (MAP) Pulse Ox O2 Delivery O2 Flow Rate FiO2 12/13/20 10:33 101 133/85 (101) 101 136/83 (100) 116 161/93 (115) 12/13/20 06:00 97.4 19 92 Room Air I&O- Last 24 Hours up to 6 AM 12/13/20 06:00 Intake Total 650 ml Output Total 350 ml Balance 300 ml Laboratory Data 24H LABS Laboratory Tests 2 12/12/20 17:49: Immature Granulocyte % (Auto) 0.6, Neutrophils (%) (Auto) 65.2, Lymphocytes (%) (Auto) 21.9L, Monocytes (%) (Auto) 11.1H, Eosinophils (%) (Auto) 0.7, Basophils (%) (Auto) 0.5, Neutrophils # (Auto) 7.1, Lymphocytes # (Auto) 2.4, Monocytes # (Auto) 1.2H, Eosinophils # (Auto) 0.1, Basophils # (Auto) 0.1, Nucleated Red Blood Cells % (auto) 0.0, Anion Gap 10, Glomerular Filtration Rate > 60.0, Calcium Level 9.5, Total Bilirubin 0.4, Aspartate Amino Transf (AST/SGOT) 30, Alanine Aminotransferase (ALT/SGPT) 42, Alkaline Phosphatase 140H, Total Protein 7.2, Albumin 3.9, Albumin/Globulin Ratio 1.2 12/12/20 18:05: POC Troponin I (Misc) 0.01 12/12/20 23:31: Coronavirus (COVID-19)(PCR) NEGATIVE, Influenza Type A (RT-PCR) NEGATIVE, Influenza Type B (RT-PCR) NEGATIVE, Respiratory Syncytial Virus (PCR) NEGATIVE 12/13/20 05:58: Nucleated Red Blood Cells % (auto) 0.0, Anion Gap 7L, Glomerular Filtration Rate > 60.0, Calcium Level 9.1 CBC/BMP Laboratory Tests 12/12/20 17:49 12/13/20 05:58 MISTI BONNER MD Dec 13, 2020 11:24
--- NOTE | 2020-12-13 15:57 | REP ---
INDICATION: syncope COMPARISON: 01/26/2020 TECHNIQUE: Real-time ultrasound evaluation and duplex Doppler interrogation of the extracranial carotid vasculature is performed. FINDINGS: There is mild plaquing and narrowing in both carotid bulbs extending into the internal and external carotid arteries. Luminal narrowing is less than 50%. There is no evidence of hemodynamically significant stenosis of either internal carotid artery. Normal flow velocities are seen. The vertebral arteries demonstrate normal direction of flow bilaterally. RIGHT LEFT Peak systolic velocity ICA 64.6 cm/s 55.8 cm/s End diastolic velocity ICA 15.1 cm/s 22.3 cm/s Peak systolic velocity CCA 86.4 cm/s 152cm/s Peak systolic velocity ECA 81.3 cm/s 114 cm/s ICA/CCA ratio 0.75 0.37 IMPRESSION: Bilateral luminal narrowing of the internal carotid arteries less than 50%. No evidence of hemodynamically significant stenosis. Stable examination. <Electronically signed by Piyush Hanson > 12/13/20 [id number]
[2020-12-13] MEDS ORDERED: FERROUS GLUCONATE 324 MG TAB PO SCH (18:00)
[2020-12-14 02:00] VITALS: BP 114/74
[2020-12-14 05:36] LABS: HEMATOCRIT 42.4 % (42.0-52.0); HEMOGLOBIN 14.5 g/dl (13.5-17.5); MEAN CORPUSCULAR HEMOGLOBIN 31.3 pg (27.0-33.0); MEAN CORPUSCULAR HGB CONC 34.2 g/dl (32.0-36.5); MEAN CORPUSCULAR VOLUME 91.4 fl (80.0-96.0); PLATELET COUNT, AUTOMATED 330 10^3/uL (150-450); RED BLOOD COUNT 4.64 10^6/uL (4.30-6.10); WHITE BLOOD COUNT 8.1 10^3/uL (4.0-10.0)
[2020-12-14 05:56] LABS: BLOOD UREA NITROGEN 13 MG/DL (7-18); CALCIUM LEVEL 9.6 MG/DL (8.8-10.2); CARBON DIOXIDE LEVEL 28 MEQ/L (21-32); CHLORIDE LEVEL 98 MEQ/L (98-107); CREATININE FOR GFR 0.91 MG/DL (0.70-1.30); GLOMERULAR FILTRATION RATE > 60.0 (>49); GLUCOSE, FASTING 105 MG/DL (70-100); POTASSIUM SERUM 3.8 MEQ/L (3.5-5.1); SODIUM LEVEL 134 MEQ/L (136-145)
[2020-12-14 06:00] VITALS: BP 129/82
[2020-12-14] MEDS ORDERED: ISOVUE-370 76% 100ML VIAL As Ordered ONE (08:36)
[2020-12-14] MEDS: PANTOPRAZOLE 40MG TAB (PROTONIX) PO SCH (09:05)
[2020-12-14] MEDS: FOLIC ACID 1 MG TAB PO SCH (09:05)
[2020-12-14] MEDS: MULTIVITAMINS/MINERALS THERAP 1 TAB PO SCH (09:05)
[2020-12-14] MEDS: CitaloPRAM (CeleXA) 20 MG TAB PO SCH (09:05)
[2020-12-14 09:06] VITALS: BP 156/88
[2020-12-14] MEDS: THIAMINE 100 MG TAB PO SCH (09:06)
[2020-12-14] MEDS: METOPROLOL TART 25 MG TABLET PO SCH (09:06)
[2020-12-14] MEDS: NORTRIPTYLINE 10 MG CAP PO SCH (09:06)
[2020-12-14] MEDS: SUCRALFATE 1 GM TAB PO SCH (09:06)
[2020-12-14] MEDS: lisinopriL 40 MG TAB PO SCH (09:06)
[2020-12-14] MEDS: CLOPIDOGREL 75 MG TAB PO SCH (09:07)
[2020-12-14] MEDS: NORTRIPTYLINE 25 MG CAP PO SCH (09:07)
[2020-12-14] MEDS: ENOXAPARIN 40MG/0.4ML SYRINGE (J1650 PER 10MG) SC SCH (09:07)
[2020-12-14] MEDS: ATORVASTATIN 20 MG TAB PO SCH (09:07)
--- NOTE | 2020-12-14 09:23 | REP ---
INDICATION: TACHYCARDIA SYNCOPE R/O PE. COMPARISON: 01/18/2020. TECHNIQUE: CT angiogram chest performed following the intravenous administration of 100 cc of Isovue 370. Sagittal and coronal reconstruction images are performed. FINDINGS: The study is limited due to patient motion and somewhat suboptimal contrast bolus in the pulmonary arterial system. Lungs: There is subsegmental atelectasis in the right upper and lower lobes. There is an oval ground-glass opacity in the left upper lobe representing infiltrate or atelectasis. Mediastinum: No adenopathy. Pulmonary arteries: No definite evidence of pulmonary embolism within the limitations of this exam. Angie: No adenopathy. Axilla: No adenopathy. Pleura: No effusion. Heart: Not enlarged. Thoracic aorta: No aneurysm or dissection. Upper abdominal structures: There is diffuse fatty infiltration of the liver. Visualized osseous structures: There are degenerative changes of the spine without compression deformity. IMPRESSION: No definite CT evidence of pulmonary embolism within the limitations of this exam. Subsegmental atelectasis right upper and lower lobes. Oval ground-glass infiltrate or atelectasis left upper lobe. <Electronically signed by Xander Rodriguez > 12/14/20 [id number]
--- NOTE | 2020-12-14 10:03 | DSES ---
DISCHARGE SUMMARY DATE OF ADMISSION: 12/12/2020 DATE OF DISCHARGE: 12/14/2020 PRIMARY DISCHARGE DIAGNOSES: 1. Recurrent syncope. 2. History of aortic stenosis status post aortic valve replacement. 3. Alcohol abuse. 4. Hypertension. 5. Dyslipidemia. 6. GERD. 7. Depression/anxiety. 8. Tachycardia. CT chest negative for pulmonary embolism. 9. Orthostatic hypotension. DISCHARGE MEDICATIONS: 1. Atorvastatin 80 mg daily. 2. Baclofen 20 at bedtime. 3. Celexa 40 daily. 4. Plavix 75 daily. 5. Diclofenac topically four times a day as needed. 6. Ferrous gluconate 324 daily. 7. Folic acid 1 mg daily. 8. Lisinopril 40 daily. 9. Metoprolol 25 daily. 10. Mirtazapine 15 mg at bedtime. 11. Multivitamin 1 tablet daily. 12. Nortriptyline 10 daily and 25 daily. 13. Protonix 40 twice a day. 14. Carafate 1 gram daily. DISCHARGE INSTRUCTIONS: 1. Patient is to have a Holter monitor placed and cardiology follow up within 5 days of hospital discharge. 2. PCP 5 day hospital appointment. HISTORY AND HOSPITAL COURSE: This is a 60-year-old male admitted on 12/13/2020 due to recurrent syncope at home times 2 for the past 3 days, passed out without head trauma, lasting for about 1 minute without urine or bowel incontinence or postictal confusion. Patient had prior syncopal episodes related to his aortic stenosis which is status post AVR 04/2020 and he complained of cough productive of yellow sputum without fever or chills. On admission he had a sodium of 128, potassium 3.4. Troponin was 0.01. EKG was sinus. CT of the head was unremarkable. Chest x-ray had no acute infiltrate. CT cervical spine showed no acute fracture. Carotid Dopplers were negative. Repeat echocardiogram was done and EEG. Patient had CT of the chest rule out PE due to tachycardia and syncopal episode which was negative. He had episodes of orthostasis most likely related to his lisinopril with systolic pressure of 84 sitting and standing of 129, tachycardia with rate of 119. Patient's chlorthalidone and lisinopril were held. Due to orthostatic hypotension the patient's chlorthalidone was discontinued. He was kept on lisinopril and metoprolol for now for blood pressure check as outpatient. Patient had no other acute issues during the hospital stay. PHYSICAL EXAMINATION ON DISCHARGE: Temperature 98.5, pulse 85, respiratory rate 18, blood pressure 129/82, 93% on room air. General: Patient is awake, alert, oriented, answering questions appropriately. Neck: no JVD, thyromegaly or cervical lymphadenopathy. Lungs: Clear to auscultation, no wheezes or rales. Heart: S1 and S2 sinus rhythm. Abdomen: Obese, soft, nontender, nondistended. Extremities: No cyanosis or clubbing. LABORATORY DATA/IMAGING STUDIES/MICROBIOLOGY: Please see the chart. Time spent on discharge: Thirty minutes MTDD
--- NOTE | 2020-12-16 09:36 | ECHO ---
ECHOCARDIOGRAM DATE OF PROCEDURE: 12/13/2020 Age: 60 Gender: Male Height: 180 cm Weight: 100 kg REFERRING PHYSICIAN: Karen Kohler MD PATIENT LOCATION: Room 4208 REASON FOR STUDY: Syncope. 2D MEASUREMENTS: IVS 1.2 cm LV 4.8 cm LVPW 1.1 cm LA 3.8 cm IVC 1.6 cm DOPPLER MEASUREMENT Peak velocity across the aortic valve 2.1 m/s Peak velocity across the LVOT 1.1 m/s Peak gradient across the aortic valve 17 mmHg Mean gradient across the aortic valve 8 mmHg Mitral E 0.83 Mitral A 1.4 with a ratio of 0.6 2D COMMENTS: 1. Normal left ventricle size, wall thickness, and normal global left ventricular systolic function. The estimated left ventricular systolic ejection fraction is 65% to 70%. 2. Normal left atrium. Normal right atrium and right ventricle. 3. The atrial septum appeared to be normal without evidence of defect or shunt. 4. The aortic root superior segment appeared to be normal in size. 5. No pericardial effusion seen. 6. Probably bioprosthetic aortic valve, leaflet excursion appeared to be normal. Mildly calcified mitral annulus with normal anterior mitral valve leaflet motion. Normal tricuspid valve. 7. The inferior vena cava was normal in size, central venous pressure is most likely normal. DOPPLER: No significant valvular regurgitation detected. Abnormal relaxation pattern was noted across the mitral valve leaflets, as well as the mitral valve annulus consistent with grade 1 left ventricular diastolic dysfunction. IMPRESSION: 1. Normal global left ventricular systolic function with a hyperdynamic left ventricle. There are some features of grade 1 left ventricular diastolic dysfunction manifested by abnormal relaxation. 2. Probably bioprosthetic aortic valve with normal function. 3. Isolated mitral annulus calcification. No evidence of mitral regurgitation or stenosis.
== END 2020-12-14 11:53 | disposition home or self-care (01) | DRG 312 ==
LOC: M ED 17:21 → M ED INP 23:26 → M MSPAV 12-13 02:07
PROVIDERS: ADMIT Family Medicine; ATTEND General Practice
DX: I95.1 Orthostatic hypotension (principal); E87.1 Hypo-osmolality and hyponatremia; F10.10 Alcohol abuse, uncomplicated; Z87.891 Personal history of nicotine dependence; I10 Essential (primary) hypertension; E78.5 Hyperlipidemia, unspecified; K21.9 Gastro-esophageal reflux disease without esophagitis; M06.9 Rheumatoid arthritis, unspecified; D64.9 Anemia, unspecified; Z90.49 Acquired absence of other specified parts of digestive tract; Z95.2 Presence of prosthetic heart valve; M43.22 Fusion of spine, cervical region; M43.26 Fusion of spine, lumbar region; Z95.828 Presence of other vascular implants and grafts; Z20.822 Contact with and (suspected) exposure to COVID-19; E87.8 Other disorders of electrolyte and fluid balance, not elsewhere classified; E87.6 Hypokalemia; F41.9 Anxiety disorder, unspecified; F32.A Depression, unspecified; Z79.899 Other long term (current) drug therapy; R00.0 Tachycardia, unspecified

== ENCOUNTER → 2020-12-24 | Outpatient (CLI) | payer MEDICARE ==
[~2020-12-24] MED LIST changes: +ATOR80TA59 PO; +BACL1TAB9; +BACL1TAB9 PO; +FERR32TA PO; +FOLI1TAB11 PO; +METO25TA4 PO; +NORT10CA2; +NORT10CA2 PO; +NORT25CA2 PO; +VITMTA PO
--- NOTE | 2020-12-24 12:49 | REP ---
INDICATION: ABNORMAL CHEST XRAY COMPARISON: None. TECHNIQUE: Frontal view of the chest with multiple views of the right hemithorax. Five total views. FINDINGS: There is a nondisplaced fracture along the anterior margin of the right 9th rib. No other obvious right rib fracture identified. Surgical clips are identified in the right hilum with elevation to the right hemidiaphragm suggesting postsurgical changes. IMPRESSION: Very subtle nondisplaced fracture along the anterior margin of the right 9th rib. <Electronically signed by Joey Zapien > 12/24/20 [id number]
[2020-12-24 14:56] LABS: BLOOD UREA NITROGEN 12 MG/DL (7-18); CARBON DIOXIDE LEVEL 29 MEQ/L (21-32); CHLORIDE LEVEL 99 MEQ/L (98-107); CREATININE FOR GFR 0.85 MG/DL (0.70-1.30); GLOMERULAR FILTRATION RATE > 60.0 (>49); GLUCOSE, FASTING 104 MG/DL (70-100); POTASSIUM SERUM 5.5 MEQ/L (3.5-5.1); SODIUM LEVEL 134 MEQ/L (136-145)
== END ==
LOC: M PLAIMG 11:28
PROVIDERS: ATTEND Physician Assistant
DX: S22.31XA Fracture of one rib, right side, initial encounter for closed fracture (principal); E87.1 Hypo-osmolality and hyponatremia; R93.89 Abnormal findings on diagnostic imaging of other specified body structures; R07.81 Pleurodynia; X58.XXXA Exposure to other specified factors, initial encounter; Y92.9 Unspecified place or not applicable; Y99.9 Unspecified external cause status

== ENCOUNTER → 2020-12-25 | Outpatient (CLI) | payer MEDICARE | LOC: M PLALAB 12:25 | PROVIDERS: ATTEND Physician Assistant | DX: E87.5 Hyperkalemia (principal) ==

== ENCOUNTER 2021-03-29 19:33 | Emergency (ER) | payer MEDICARE ==
[~2021-03-29] VITALS: Ht 180.3 cm; Wt 104.1 kg
[2021-03-29 19:35] VITALS: BP 133/88
[2021-03-29] MEDS ORDERED: CHLO125TA PO (20:26)
[2021-03-29] MEDS ORDERED: MIRT1TAB PO (20:26)
[2021-03-29] MEDS ORDERED: KETOROLAC 30 MG/ML 1ML VIAL IM ONE (21:45)
== END 2021-03-29 21:56 | disposition home or self-care (01) ==
LOC: M ED 19:33
DX: S00.03XA Contusion of scalp, initial encounter (principal); S06.9X0A Unspecified intracranial injury without loss of consciousness, initial encounter; W00.0XXA Fall on same level due to ice and snow, initial encounter; Y92.018 Other place in single-family (private) house as the place of occurrence of the external cause; I10 Essential (primary) hypertension; K21.9 Gastro-esophageal reflux disease without esophagitis; F33.9 Major depressive disorder, recurrent, unspecified; M43.22 Fusion of spine, cervical region; Z79.01 Long term (current) use of anticoagulants; Z79.899 Other long term (current) drug therapy

== ENCOUNTER → 2021-05-27 | Outpatient (CLI) | payer MEDICARE ==
[~2021-05-27] MED LIST changes: +ASPI81TA26 PO; +CHLO125TA PO
== END ==
LOC: M LABSMTC 10:52
PROVIDERS: ATTEND Anesthesiology
DX: Z11.52 Encounter for screening for COVID-19 (principal); Z20.822 Contact with and (suspected) exposure to COVID-19

== ENCOUNTER → 2021-06-21 | Outpatient (CLI) | payer MEDICARE ==
[2021-06-21 14:18] LABS: ALBUMIN 4.1 GM/DL (3.2-5.2); ALT/SGPT 35 U/L (12-78); BILIRUBIN,TOTAL 0.6 MG/DL (0.2-1.0); BLOOD UREA NITROGEN 9 MG/DL (7-18); CALCIUM LEVEL 9.8 MG/DL (8.8-10.2); CARBON DIOXIDE LEVEL 30 MEQ/L (21-32); CHLORIDE LEVEL 97 MEQ/L (98-107); CHOLESTEROL LEVEL 154 MG/DL (<200); CREATININE FOR GFR 0.73 MG/DL (0.70-1.30); GLOMERULAR FILTRATION RATE > 60.0 (>49); GLUCOSE, FASTING 85 MG/DL (70-100); HDL CHOLESTEROL 56 MG/DL (>40); LDL CHOLESTEROL 74 MG/DL (<100); NON-HDL-C 98 MG/DL; POTASSIUM SERUM 4.3 MEQ/L (3.5-5.1); SODIUM LEVEL 133 MEQ/L (136-145); TOTAL PROTEIN 7.1 GM/DL (6.4-8.2); TRIGLYCERIDES LEVEL 122 MG/DL (<150)
[2021-06-21 15:03] LABS: HEMOGLOBIN A1c 5.9 %
== END ==
LOC: M PLALAB 12:17
PROVIDERS: ATTEND Physician Assistant Medical
DX: E78.00 Pure hypercholesterolemia, unspecified (principal); E66.9 Obesity, unspecified; I10 Essential (primary) hypertension; Z12.5 Encounter for screening for malignant neoplasm of prostate; Z79.899 Other long term (current) drug therapy
CPT/HCPCS: 36415; 80053; 80061; 82550; 83036; G0103

== ENCOUNTER → 2021-06-27 | Outpatient (CLI) | payer MEDICARE ==
[~2021-06-27] MED LIST changes: +ISOVUE-370 76% 100ML VIAL As Ordered ONE
== END ==
LOC: M RAD 15:38
PROVIDERS: ATTEND Surgery
DX: I73.9 Peripheral vascular disease, unspecified (principal)
CPT/HCPCS: 75635; Q9967

== ENCOUNTER 2021-08-16 10:46 | Emergency (ER) | payer MEDICARE ==
[~2021-08-16] VITALS: Ht 180.3 cm; Wt 101.2 kg
[~2021-08-16 10:46] MED LIST changes: -ISOVUE-370 76% 100ML VIAL As Ordered ONE
[2021-08-16] MEDS ORDERED: BOOSTRIX/ADACEL VACCINE (DIPHTH/PERTUSS/ACELL/TETANUS) 0.5ML SYR IM.IMMUN ONE (11:35)
[2021-08-16] MEDS ORDERED: ISOVUE-370 76% 100ML VIAL As Ordered ONE (11:44)
[2021-08-16 11:46] LABS: BASO % 0.3 % (0.0-1.0); EOS % 0.2 % (0.0-3.0); HEMATOCRIT 45.5 % (42.0-52.0); HEMOGLOBIN 15.6 g/dl (13.5-17.5); LYMPH # 1.5 10^3/uL (1.5-5.0); LYMPH % 12.2 % (24.0-44.0); MEAN CORPUSCULAR HEMOGLOBIN 31.6 pg (27.0-33.0); MEAN CORPUSCULAR HGB CONC 34.3 g/dl (32.0-36.5); MEAN CORPUSCULAR VOLUME 92.1 fl (80.0-96.0); MONO # 1.1 10^3/uL (0.0-0.8); MONO % 9.5 % (2.0-8.0); NEUTROPHILS # 9.3 10^3/uL (1.5-8.5); NEUTROPHILS % 77.1 % (36.0-66.0); PLATELET COUNT, AUTOMATED 290 10^3/uL (150-450); RED BLOOD COUNT 4.94 10^6/uL (4.30-6.10); WHITE BLOOD COUNT 12.1 10^3/uL (4.0-10.0)
[2021-08-16 12:15] LABS: CK-MB VALUE MASS 3.5 NG/ML (<3.6); MB/CK RELATIVE INDEX 1.8 (< OR =4)
[2021-08-16 12:21] LABS: BLOOD UREA NITROGEN 8 MG/DL (7-18); CALCIUM LEVEL 9.3 MG/DL (8.8-10.2); CARBON DIOXIDE LEVEL 27 MEQ/L (21-32); CHLORIDE LEVEL 101 MEQ/L (98-107); CREATININE FOR GFR 0.68 MG/DL (0.70-1.30); FREE T4 0.97 NG/DL (0.76-1.46); GLOMERULAR FILTRATION RATE > 60.0 (>49); GLUCOSE, FASTING 106 MG/DL (70-100); MAGNESIUM LEVEL 1.9 MG/DL (1.8-2.4); POTASSIUM SERUM 4.5 MEQ/L (3.5-5.1); SODIUM LEVEL 133 MEQ/L (136-145)
[2021-08-16 13:26] LABS: CK-MB VALUE MASS 3.2 NG/ML (<3.6); MB/CK RELATIVE INDEX 2.05 (< OR =4)
[2021-08-16] MEDS ORDERED: ONDANSETRON 4MG 2ML VIAL IV ONE (14:00)
[2021-08-16] MEDS ORDERED: MORPHINE 4 MG/ML 1ML VIAL/SYRINGE IV ONE (14:00)
[2021-08-16] MEDS ORDERED: BACITRACIN OINTMENT 30GM TUBE TOP STA (14:24)
[2021-08-16] MEDS ORDERED: PERCOCET 5MG/325MG TAB PO ONE (15:50)
[2021-08-16] MEDS ORDERED: OXYC1TAB23 PO (16:25)
[2021-08-16 16:45] VITALS: BP 154/70
== END 2021-08-16 17:05 | disposition home or self-care (01) ==
LOC: M ED 10:46
DX: R55 Syncope and collapse (principal); S09.90XA Unspecified injury of head, initial encounter; S80.11XA Contusion of right lower leg, initial encounter; S80.12XA Contusion of left lower leg, initial encounter; S70.01XA Contusion of right hip, initial encounter; W18.39XA Other fall on same level, initial encounter; Y92.018 Other place in single-family (private) house as the place of occurrence of the external cause; M25.78 Osteophyte, vertebrae; I10 Essential (primary) hypertension; E78.9 Disorder of lipoprotein metabolism, unspecified; I44.0 Atrioventricular block, first degree; Z79.899 Other long term (current) drug therapy; Z79.82 Long term (current) use of aspirin; Z79.01 Long term (current) use of anticoagulants; F17.200 Nicotine dependence, unspecified, uncomplicated
CPT/HCPCS: 70450; 70486; 71045; 72110; 72125; 72170; 73502; 74177; 80047; 80048; 82550; 82553; 83735; 84439; 84443; 84484; 85025; 90471; 90715; 93005; 93041; 94760; 96374; 96375; 99285; J2270; J2405; Q9967

== ENCOUNTER → 2021-08-26 | Outpatient (CLI) | payer MEDICARE ==
[~2021-08-26] MED LIST changes: +OXYC1TAB23 PO
[2021-08-26 17:22] LABS: BASO # 0.1 10^3/uL (0.0-0.2); BASO % 0.6 % (0.0-1.0); EOS # 0.1 10^3/uL (0.0-0.5); EOS % 0.8 % (0.0-3.0); HEMOGLOBIN 15.6 g/dl (13.5-17.5); LYMPH # 1.9 10^3/uL (1.5-5.0); LYMPH % 17.5 % (24.0-44.0); MEAN CORPUSCULAR HEMOGLOBIN 31.4 pg (27.0-33.0); MEAN CORPUSCULAR HGB CONC 34.7 g/dl (32.0-36.5); MEAN CORPUSCULAR VOLUME 90.5 fl (80.0-96.0); MONO # 1.3 10^3/uL (0.0-0.8); MONO % 12.2 % (2.0-8.0); NEUTROPHILS # 7.4 10^3/uL (1.5-8.5); NEUTROPHILS % 68.3 % (36.0-66.0); PLATELET COUNT, AUTOMATED 377 10^3/uL (150-450); RED BLOOD COUNT 4.97 10^6/uL (4.30-6.10); WHITE BLOOD COUNT 10.9 10^3/uL (4.0-10.0)
[2021-08-26 18:27] LABS: ALBUMIN 4.1 GM/DL (3.2-5.2); ALT/SGPT 40 U/L (12-78); BILIRUBIN,TOTAL 0.6 MG/DL (0.2-1.0); BLOOD UREA NITROGEN 8 MG/DL (7-18); CALCIUM LEVEL 9.6 MG/DL (8.8-10.2); CARBON DIOXIDE LEVEL 29 MEQ/L (21-32); CHLORIDE LEVEL 91 MEQ/L (98-107); CREATININE FOR GFR 0.77 MG/DL (0.70-1.30); FERRITIN 149 NG/ML (26-388); GLOMERULAR FILTRATION RATE > 60.0 (>49); GLUCOSE, FASTING 73 MG/DL (70-100); IRON (FE) 89 UG/DL (65-175); POTASSIUM SERUM 4.6 MEQ/L (3.5-5.1); SODIUM LEVEL 130 MEQ/L (136-145); TOTAL PROTEIN 7.4 GM/DL (6.4-8.2)
== END ==
LOC: M PLALAB 15:38
PROVIDERS: ATTEND Physician Assistant Medical
DX: E87.1 Hypo-osmolality and hyponatremia (principal); D72.829 Elevated white blood cell count, unspecified; D50.9 Iron deficiency anemia, unspecified

== ENCOUNTER → 2021-08-29 | Outpatient (CLI) | payer MEDICARE | LOC: M PLAIMG 12:41 | PROVIDERS: ATTEND Physician Assistant Medical | DX: M46.06 Spinal enthesopathy, lumbar region (principal); M43.06 Spondylolysis, lumbar region; M51.26 Other intervertebral disc displacement, lumbar region; Z96.82 Presence of neurostimulator ==

== ENCOUNTER → 2021-10-04 | Outpatient (CLI) | payer MEDICARE ==
[2021-10-04 13:51] LABS: ALBUMIN 4.3 GM/DL (3.2-5.2); ALT/SGPT 29 U/L (12-78); BILIRUBIN,TOTAL 0.3 MG/DL (0.2-1.0); BLOOD UREA NITROGEN 10 MG/DL (7-18); CALCIUM LEVEL 10.1 MG/DL (8.8-10.2); CARBON DIOXIDE LEVEL 30 MEQ/L (21-32); CHLORIDE LEVEL 100 MEQ/L (98-107); GLOMERULAR FILTRATION RATE > 60.0 (>49); GLUCOSE, FASTING 100 MG/DL (70-100); POTASSIUM SERUM 5.5 MEQ/L (3.5-5.1); SODIUM LEVEL 134 MEQ/L (136-145); TOTAL PROTEIN 7.1 GM/DL (6.4-8.2)
== END ==
LOC: M PLALAB 10:27
PROVIDERS: ATTEND Physician Assistant Medical
DX: E87.1 Hypo-osmolality and hyponatremia (principal); D72.829 Elevated white blood cell count, unspecified

== ENCOUNTER → 2021-10-09 | Outpatient (REF) | payer MEDICARE ==
[2021-10-09 13:30] LABS: BASO % 0.5 % (0.0-1.0); EOS # 0.1 10^3/uL (0.0-0.5); EOS % 1.6 % (0.0-3.0); HEMATOCRIT 45.3 % (42.0-52.0); LYMPH # 1.8 10^3/uL (1.5-5.0); LYMPH % 23.1 % (24.0-44.0); MEAN CORPUSCULAR HEMOGLOBIN 31.1 pg (27.0-33.0); MEAN CORPUSCULAR HGB CONC 33.1 g/dl (32.0-36.5); MEAN CORPUSCULAR VOLUME 93.8 fl (80.0-96.0); MONO # 0.9 10^3/uL (0.0-0.8); MONO % 11.8 % (2.0-8.0); NEUTROPHILS # 4.8 10^3/uL (1.5-8.5); NEUTROPHILS % 62.2 % (36.0-66.0); PLATELET COUNT, AUTOMATED 289 10^3/uL (150-450); RED BLOOD COUNT 4.83 10^6/uL (4.30-6.10); WHITE BLOOD COUNT 7.6 10^3/uL (4.0-10.0)
== END ==
LOC: M PLALAB 13:04
PROVIDERS: ATTEND Physician Assistant Medical
DX: E87.1 Hypo-osmolality and hyponatremia (principal); D72.829 Elevated white blood cell count, unspecified

== ENCOUNTER → 2021-10-16 | Outpatient (CLI) | payer MEDICARE ==
[2021-10-16 14:12] LABS: BLOOD UREA NITROGEN 9 MG/DL (7-18); CARBON DIOXIDE LEVEL 32 MEQ/L (21-32); CHLORIDE LEVEL 101 MEQ/L (98-107); CREATININE FOR GFR 0.76 MG/DL (0.70-1.30); GLOMERULAR FILTRATION RATE > 60.0 (>49); GLUCOSE, FASTING 102 MG/DL (70-100); POTASSIUM SERUM 5.2 MEQ/L (3.5-5.1); SODIUM LEVEL 134 MEQ/L (136-145)
== END ==
LOC: M PLALAB 11:21
PROVIDERS: ATTEND Physician Assistant Medical
DX: E87.5 Hyperkalemia (principal)

== ENCOUNTER → 2021-12-23 | Outpatient (REF) | payer MEDICARE ==
[~2021-12-23] MED LIST changes: +CLOP75TA99 PO; -PLAV1TAB2 PO
== END ==
LOC: M SFHCPLAZ 13:08
PROVIDERS: ATTEND Physician Assistant Medical
DX: R09.89 Other specified symptoms and signs involving the circulatory and respiratory systems (principal)

== ENCOUNTER → 2021-12-24 | Outpatient (CLI) | payer MEDICARE | LOC: M PLAIMG 08:49 | PROVIDERS: ATTEND Physician Assistant Medical | DX: J81.0 Acute pulmonary edema (principal); R09.89 Other specified symptoms and signs involving the circulatory and respiratory systems; Z95.2 Presence of prosthetic heart valve ==

== ENCOUNTER → 2021-12-30 | Outpatient (CLI) | payer MEDICARE ==
[2021-12-30 09:28] LABS: ALBUMIN 4.1 G/DL (3.2-5.2); ALT/SGPT 46 U/L (7.0-40); BILIRUBIN,TOTAL 0.5 MG/DL (0.3-1.2); BLOOD UREA NITROGEN 9 MG/DL (9-23); CALCIUM LEVEL 8.9 MG/DL (8.3-10.6); CARBON DIOXIDE LEVEL 29 MMOL/L (20-31); CHLORIDE LEVEL 96 MMOL/L (98-107); CREATININE FOR GFR 0.62 MG/DL (0.70-1.30); GLOMERULAR FILTRATION RATE > 60.0 (>49); GLUCOSE, FASTING 112 MG/DL (74-106); POTASSIUM SERUM 4.5 MMOL/L (3.5-5.1); SODIUM LEVEL 132 MMOL/L (136-145); TOTAL PROTEIN 6.7 G/DL (5.7-8.2)
== END ==
LOC: M LAB 08:14
PROVIDERS: ATTEND Physician Assistant Medical
DX: R09.89 Other specified symptoms and signs involving the circulatory and respiratory systems (principal); J81.0 Acute pulmonary edema

== ENCOUNTER → 2021-12-30 | Outpatient (CLI) | payer MEDICARE | LOC: M RAD 06:57 | PROVIDERS: ATTEND Surgery | DX: I73.9 Peripheral vascular disease, unspecified (principal) ==

== ENCOUNTER → 2022-02-04 | Outpatient (CLI) | payer MEDICARE ==
[2022-02-04 13:28] LABS: BASO % 0.3 % (0.0-1.0); EOS # 0.1 10^3/uL (0.0-0.5); EOS % 0.7 % (0.0-3.0); HEMATOCRIT 45.3 % (42.0-52.0); HEMOGLOBIN 15.3 g/dl (13.5-17.5); LYMPH # 1.9 10^3/uL (1.5-5.0); LYMPH % 15.9 % (24.0-44.0); MEAN CORPUSCULAR HEMOGLOBIN 31.6 pg (27.0-33.0); MEAN CORPUSCULAR HGB CONC 33.8 g/dl (32.0-36.5); MEAN CORPUSCULAR VOLUME 93.6 fl (80.0-96.0); MONO # 1.2 10^3/uL (0.0-0.8); MONO % 9.6 % (2.0-8.0); NEUTROPHILS # 8.8 10^3/uL (1.5-8.5); NEUTROPHILS % 72.8 % (36.0-66.0); PLATELET COUNT, AUTOMATED 343 10^3/uL (150-450); RED BLOOD COUNT 4.84 10^6/uL (4.30-6.10); WHITE BLOOD COUNT 12.1 10^3/uL (4.0-10.0)
[2022-02-04 13:58] LABS: ALBUMIN 4.3 G/DL (3.2-5.2); ALKALINE PHOSPHATASE 155 U/L (46-116); ALT/SGPT 39 U/L (7.0-40); AST/SGOT 30 U/L (<34); BILIRUBIN,TOTAL 0.5 MG/DL (0.3-1.2); BLOOD UREA NITROGEN 13 MG/DL (9-23); CALCIUM LEVEL 9.9 MG/DL (8.3-10.6); CARBON DIOXIDE LEVEL 30 MMOL/L (20-31); CHLORIDE LEVEL 100 MMOL/L (98-107); CREATININE FOR GFR 0.82 MG/DL (0.70-1.30); GLOMERULAR FILTRATION RATE > 60.0 (>49); GLUCOSE, FASTING 81 MG/DL (74-106); IRON (FE) 85 UG/DL (65-175); POTASSIUM SERUM 4.8 MMOL/L (3.5-5.1); SODIUM LEVEL 137 MMOL/L (136-145); TOTAL PROTEIN 7.2 G/DL (5.7-8.2)
[2022-02-04 14:01] LABS: FERRITIN 74.8 NG/ML (10.5-307.3)
== END ==
LOC: M PLAIMG 11:41
PROVIDERS: ATTEND Physician Assistant Medical
DX: D50.9 Iron deficiency anemia, unspecified (principal)

== ENCOUNTER → 2022-03-19 | Outpatient (CLI) | payer MEDICARE | LOC: M RAD 13:29 | PROVIDERS: ATTEND Surgery | DX: I73.9 Peripheral vascular disease, unspecified (principal) ==

== ENCOUNTER → 2022-03-27 | Outpatient (CLI) | payer MEDICARE ==
[2022-03-27 15:34] LABS: BASO # 0.1 10^3/uL (0.0-0.2); BASO % 0.5 % (0.0-1.0); EOS # 0.1 10^3/uL (0.0-0.5); EOS % 0.7 % (0.0-3.0); HEMATOCRIT 43.2 % (42.0-52.0); HEMOGLOBIN 14.8 g/dl (13.5-17.5); LYMPH # 1.8 10^3/uL (1.5-5.0); LYMPH % 18.1 % (24.0-44.0); MEAN CORPUSCULAR HEMOGLOBIN 32.3 pg (27.0-33.0); MEAN CORPUSCULAR HGB CONC 34.3 g/dl (32.0-36.5); MEAN CORPUSCULAR VOLUME 94.3 fl (80.0-96.0); MONO # 1.1 10^3/uL (0.0-0.8); MONO % 10.9 % (2.0-8.0); NEUTROPHILS % 69.2 % (36.0-66.0); PLATELET COUNT, AUTOMATED 299 10^3/uL (150-450); RED BLOOD COUNT 4.58 10^6/uL (4.30-6.10); WHITE BLOOD COUNT 10.1 10^3/uL (4.0-10.0)
[2022-03-27 15:55] LABS: FERRITIN 55.9 NG/ML (10.5-307.3)
== END ==
LOC: M PLALAB 14:25
PROVIDERS: ATTEND Physician Assistant Medical
DX: D50.9 Iron deficiency anemia, unspecified (principal)

== ENCOUNTER → 2022-05-13 | Outpatient (CLI) | payer MEDICARE ==
[2022-05-13 15:30] LABS: BASO % 0.5 % (0.0-1.0); EOS # 0.1 10^3/uL (0.0-0.5); HEMATOCRIT 44.3 % (42.0-52.0); LYMPH # 1.2 10^3/uL (1.5-5.0); LYMPH % 15.7 % (24.0-44.0); MEAN CORPUSCULAR HEMOGLOBIN 31.8 pg (27.0-33.0); MEAN CORPUSCULAR HGB CONC 33.9 g/dl (32.0-36.5); MEAN CORPUSCULAR VOLUME 94.1 fl (80.0-96.0); MONO # 1.1 10^3/uL (0.0-0.8); MONO % 13.8 % (2.0-8.0); NEUTROPHILS # 5.4 10^3/uL (1.5-8.5); NEUTROPHILS % 68.2 % (36.0-66.0); PLATELET COUNT, AUTOMATED 337 10^3/uL (150-450); RED BLOOD COUNT 4.71 10^6/uL (4.30-6.10); WHITE BLOOD COUNT 7.9 10^3/uL (4.0-10.0)
[2022-05-13 15:50] LABS: ALBUMIN 4.3 G/DL (3.2-5.2); ALKALINE PHOSPHATASE 140 U/L (46-116); ALT/SGPT 33 U/L (7.0-40); AST/SGOT 32 U/L (<34); BILIRUBIN,TOTAL 0.5 MG/DL (0.3-1.2); BLOOD UREA NITROGEN 11 MG/DL (9-23); CALCIUM LEVEL 9.6 MG/DL (8.3-10.6); CARBON DIOXIDE LEVEL 32 MMOL/L (20-31); CHLORIDE LEVEL 96 MMOL/L (98-107); CREATININE FOR GFR 0.69 MG/DL (0.70-1.30); GLOMERULAR FILTRATION RATE > 60.0 (>49); GLUCOSE, FASTING 93 MG/DL (74-106); POTASSIUM SERUM 5.2 MMOL/L (3.5-5.1); SODIUM LEVEL 134 MMOL/L (136-145); TOTAL PROTEIN 7.1 G/DL (5.7-8.2)
[2022-05-13 17:19] LABS: ERYTHROCYTE SEDIMENTATION RATE 15 mm/hr (0-20)
== END ==
LOC: M PLALAB 11:09
PROVIDERS: ATTEND Physician Assistant Medical
DX: D72.829 Elevated white blood cell count, unspecified (principal); R09.89 Other specified symptoms and signs involving the circulatory and respiratory systems; J81.0 Acute pulmonary edema

== ENCOUNTER → 2022-05-29 | Outpatient (CLI) | payer MEDICARE | LOC: M RAD 11:15 | PROVIDERS: ATTEND Physician Assistant Medical | DX: R09.89 Other specified symptoms and signs involving the circulatory and respiratory systems (principal); I70.0 Atherosclerosis of aorta; S22.089A Unspecified fracture of T11-T12 vertebra, initial encounter for closed fracture ==

== ENCOUNTER 2022-06-11 10:01 | Outpatient (RCR) | payer MEDICARE | END 2022-07-09 | LOC: M PT 10:01 | PROVIDERS: ATTEND Physician Assistant Surgical | DX: M48.062 Spinal stenosis, lumbar region with neurogenic claudication (principal) ==

== ENCOUNTER 2022-06-20 10:23 | Day surgery (SDC) | payer MEDICARE ==
[~2022-06-20] VITALS: Ht 180.3 cm; Wt 100.4 kg
[~2022-06-20 10:23] MED LIST changes: +NS 1,000 ML IV ONE
[2022-06-20] MEDS ORDERED: propofoL 200 MG/20 ML VIAL As Ordered ONE ×3 (12:56→13:06)
[2022-06-20] MEDS ORDERED: GLYCOPYRROLATE INJ 0.2 MG/ML 2 ML VIAL As Ordered ONE (13:18)
[2022-06-20 14:15] VITALS: BP 179/100
== END 2022-06-20 14:18 | disposition home or self-care (01) ==
LOC: M OPP 10:23
PROVIDERS: ATTEND Internal Medicine Gastroenterology
DX: K63.5 Polyp of colon (principal); K64.8 Other hemorrhoids; K57.30 Diverticulosis of large intestine without perforation or abscess without bleeding; K55.20 Angiodysplasia of colon without hemorrhage; D50.9 Iron deficiency anemia, unspecified; K31.89 Other diseases of stomach and duodenum; Z87.891 Personal history of nicotine dependence; Z79.02 Long term (current) use of antithrombotics/antiplatelets; Z79.82 Long term (current) use of aspirin; Z79.891 Long term (current) use of opiate analgesic; Z79.899 Other long term (current) drug therapy

== ENCOUNTER → 2022-10-09 | Outpatient (CLI) | payer MEDICARE ==
[~2022-10-09] MED LIST changes: +DICL100G10 TOP; -DICL1GEL3 TOP; -NS 1,000 ML IV ONE
== END ==
LOC: M RAD 13:41
PROVIDERS: ATTEND Surgery
DX: I73.9 Peripheral vascular disease, unspecified (principal)

== ENCOUNTER → 2023-02-13 | Outpatient (CLI) | payer MEDICARE ==
[2023-02-13 15:47] LABS: BASO % 0.4 % (0.0-1.0); EOS % 0.4 % (0.0-3.0); HEMATOCRIT 44.3 % (42.0-52.0); HEMOGLOBIN 15.3 g/dl (13.5-17.5); LYMPH # 1.4 10^3/uL (1.5-5.0); LYMPH % 15.2 % (24.0-44.0); MEAN CORPUSCULAR HEMOGLOBIN 32.6 pg (27.0-33.0); MEAN CORPUSCULAR HGB CONC 34.5 g/dl (32.0-36.5); MEAN CORPUSCULAR VOLUME 94.3 fl (80.0-96.0); MONO # 0.9 10^3/uL (0.0-0.8); MONO % 10.3 % (2.0-8.0); NEUTROPHILS # 6.5 10^3/uL (1.5-8.5); PLATELET COUNT, AUTOMATED 280 10^3/uL (150-450); WHITE BLOOD COUNT 8.9 10^3/uL (4.0-10.0)
[2023-02-13 15:59] LABS: INR 1.03; PROTHROMBIN TIME 13.2 SECONDS (12.5-14.5)
[2023-02-13 16:00] LABS: PARTIAL THROMBOPLASTIN TIME 26.3 SECONDS (24.8-34.2)
[2023-02-13 16:05] LABS: PSA SCREENING 0.13 NG/ML (< 4.00)
[2023-02-13 16:08] LABS: CPK CREATINE PHOSPHOKINASE 73 U/L (46-171)
[2023-02-13 16:09] LABS: ALBUMIN 4.2 G/DL (3.2-5.2); ALKALINE PHOSPHATASE 130 U/L (46-116); ALT/SGPT 34 U/L (7.0-40); AST/SGOT 21 U/L (<34); BILIRUBIN,TOTAL 0.6 MG/DL (0.3-1.2); BLOOD UREA NITROGEN 9 MG/DL (9-23); CALCIUM LEVEL 9.6 MG/DL (8.3-10.6); CARBON DIOXIDE LEVEL 31 MMOL/L (20-31); CHLORIDE LEVEL 99 MMOL/L (98-107); CHOLESTEROL LEVEL 163 MG/DL (<200); CHOLESTEROL RISK RATIO 2.49 (<5); CREATININE FOR GFR 0.63 MG/DL (0.70-1.30); FREE T4 1.02 NG/DL (0.89-1.76); GLOMERULAR FILTRATION RATE > 60.0 (>49); GLUCOSE, FASTING 86 MG/DL (74-106); HDL CHOLESTEROL 65.3 MG/DL (>40); IRON (FE) 91 UG/DL (65-175); LDL CHOLESTEROL 82.3 MG/DL (<100); NON-HDL-C 97.7 MG/DL; POTASSIUM SERUM 4.8 MMOL/L (3.5-5.1); SODIUM LEVEL 135 MMOL/L (136-145); THYROID STIMULATING HORMONE 2.116 uIU/ML (0.55-4.78); TOTAL PROTEIN 6.9 G/DL (5.7-8.2); TRIGLYCERIDES LEVEL 77 MG/DL (<150)
[2023-02-13 16:10] LABS: FERRITIN 74.2 NG/ML (10.5-307.3)
[2023-02-13 16:21] LABS: HEMOGLOBIN A1c 5.7 % (4.0-6.0)
== END ==
LOC: M PLALAB 14:10
PROVIDERS: ATTEND Physician Assistant Medical
DX: K83.8 Other specified diseases of biliary tract (principal); J30.2 Other seasonal allergic rhinitis; I10 Essential (primary) hypertension; D50.9 Iron deficiency anemia, unspecified; E66.9 Obesity, unspecified; F41.8 Other specified anxiety disorders; E78.00 Pure hypercholesterolemia, unspecified; Z12.5 Encounter for screening for malignant neoplasm of prostate; Z79.899 Other long term (current) drug therapy
CPT/HCPCS: 36415; 80053; 80061; 82550; 82728; 83036; 83540; 84439; 84443; 85025; 85610; 85730; G0103

== ENCOUNTER 2023-03-19 12:49 | Inpatient (IN) | payer MEDICARE ==
[~2023-03-19] VITALS: Ht 180.3 cm; Wt 106.2 kg
[2023-03-19] MEDS: ACETAMINOPHEN 325 MG TAB PO ONE (13:10)
[2023-03-19] MEDS: NS IV ONE (13:10)
[2023-03-19] MEDS: PIPERACILLIN/TAZOBACTAM SOD 4.5 GM in D5W MINI-BAG PLUS 50 ML IV ONE (13:15)
[2023-03-19] MEDS: ONDANSETRON 4MG 2ML VIAL IV ONE (13:43)
[2023-03-19] MEDS: MORPHINE 4 MG/ML 1ML VIAL IV PRN (13:43)
[2023-03-19 13:46] LABS: BASO % 0.2 % (0.0-1.0); HEMATOCRIT 38.7 % (42.0-52.0); HEMOGLOBIN 13.5 g/dl (13.5-17.5); LYMPH # 1.2 10^3/uL (1.5-5.0); LYMPH % 6.1 % (24.0-44.0); MEAN CORPUSCULAR HEMOGLOBIN 32.8 pg (27.0-33.0); MEAN CORPUSCULAR HGB CONC 34.9 g/dl (32.0-36.5); MEAN CORPUSCULAR VOLUME 94.2 fl (80.0-96.0); MONO # 1.7 10^3/uL (0.0-0.8); MONO % 8.6 % (2.0-8.0); NEUTROPHILS % 84.5 % (36.0-66.0); PLATELET COUNT, AUTOMATED 355 10^3/uL (150-450); RED BLOOD COUNT 4.11 10^6/uL (4.30-6.10); VENOUS BASE EXCESS 0.7 (-2.0-2.0); VENOUS HCO3 24.8 MMOL/L (23.0-27.0); VENOUS O2 SATURATION 76.8 % (60.0-80.0); VENOUS PARTIAL PRESSURE CO2 38.3 mmHg (38.0-50.0); VENOUS PARTIAL PRESSURE O2 36.3 mmHg (30.0-50.0); VENOUS PH 7.429 UNITS (7.330-7.430); VENOUS STANDARD HCO3 24.5 MMOL/L; WHITE BLOOD COUNT 20.1 10^3/uL (4.0-10.0)
[2023-03-19 13:59] LABS: INR 0.98; PROTHROMBIN TIME 12.7 SECONDS (12.5-14.5)
[2023-03-19 14:00] LABS: PARTIAL THROMBOPLASTIN TIME 25.6 SECONDS (24.8-34.2)
[2023-03-19 14:11] LABS: AMYLASE 67 U/L (30-118)
[2023-03-19 14:12] LABS: ALBUMIN 3.7 G/DL (3.2-5.2); ALKALINE PHOSPHATASE 139 U/L (46-116); ALT/SGPT 27 U/L (7.0-40); AST/SGOT 22 U/L (<34); BILIRUBIN,DIRECT 0.2 MG/DL (<0.4); BILIRUBIN,TOTAL 0.5 MG/DL (0.3-1.2); BLOOD UREA NITROGEN 13 MG/DL (9-23); CALCIUM LEVEL 8.9 MG/DL (8.3-10.6); CARBON DIOXIDE LEVEL 29 MMOL/L (20-31); CHLORIDE LEVEL 100 MMOL/L (98-107); CREATININE FOR GFR 0.66 MG/DL (0.70-1.30); GLOMERULAR FILTRATION RATE > 60.0 (>49); GLUCOSE, FASTING 107 MG/DL (74-106); POTASSIUM SERUM 4.7 MMOL/L (3.5-5.1); SODIUM LEVEL 133 MMOL/L (136-145); TOTAL PROTEIN 6.6 G/DL (5.7-8.2)
[2023-03-19 14:18] LABS: PROCALCITONIN 0.06 ng/ml
[2023-03-19] MEDS ORDERED: ISOVUE-370 76% 100ML VIAL As Ordered ONE (14:23)
[2023-03-19 15:39] LABS: LIPASE 46 U/L (12-53)
[2023-03-19] MEDS ORDERED: PIPERACILLIN/TAZOBACTAM SOD 3.375 GM in D5W MINI-BAG PLUS 50 ML IV SCH (16:30)
[2023-03-19 17:51] LABS: APPEARANCE, URINE CLEAR (CLEAR); BACTERIA, URINE AUTO NEGATIVE (NEGATIVE); BILIRUBIN, URINE AUTO NEGATIVE (NEGATIVE); BLOOD, URINE BLOOD NEGATIVE (NEGATIVE); COLOR, URINE YELLOW (YELLOW); GLUCOSE, URINE (UA) AUTO NEGATIVE (NEGATIVE); KETONE, URINE AUTO NEGATIVE (NEGATIVE); LEUKOCYTE ESTERASE, URINE AUTO NEGATIVE (NEGATIVE); NITRITE, URINE AUTO NEGATIVE (NEGATIVE); PROTEIN, URINE AUTO NEGATIVE (NEGATIVE); RBC, URINE AUTO 0 /HPF (0-3); SQUAMOUS EPITHELIAL CELL UR AU 0 /HPF (0-6); UROBILINOGEN, URINE AUTO 0.2 mg/dL (0.0-2.0); WBC, URINE AUTO 0 /HPF (0-3)
[2023-03-19 18:05] LABS: SPECIFIC GRAVITY URINE AUTO >1.060 (1.002-1.035)
[2023-03-19] MEDS ORDERED: THERTAB21 PO (19:14)
[2023-03-19] MEDS ORDERED: LISI20TA33 PO (19:14)
[2023-03-19] MEDS ORDERED: TORS10TA3 PO (19:16)
[2023-03-19] MEDS ORDERED: FINA5TAB2 PO (19:16)
[2023-03-19] MEDS ORDERED: LORA-930 PO (19:16)
[2023-03-19] MEDS ORDERED: HOME MED LIST COMPLETE! XX SCH (19:20)
[2023-03-19] MEDS: PIPERACILLIN/TAZOBACTAM SOD 4.5 GM in D5W MINI-BAG PLUS 50 ML IV SCH (19:21)
[2023-03-19] MEDS: ONDANSETRON 4MG TAB PO PRN (20:19)
[2023-03-19 21:32] VITALS: BP 138/77; TEMP 98.6; O2SAT 96
[2023-03-20] MEDS: ACETAMINOPHEN TAB 650MG DOSE (2X325MG) PO PRN (00:05)
[2023-03-20 05:33] VITALS: BP 135/78; TEMP 98.1; O2SAT 94
[2023-03-20] MEDS ORDERED: BACLOFEN 10 MG TAB PO PRN (07:15)
[2023-03-20] MEDS ORDERED: LORATADINE 10 MG TAB PO PRN (07:15)
[2023-03-20 07:42] LABS: HEMATOCRIT 35.8 % (42.0-52.0); HEMOGLOBIN 12.1 g/dl (13.5-17.5); MEAN CORPUSCULAR HEMOGLOBIN 32.7 pg (27.0-33.0); MEAN CORPUSCULAR HGB CONC 33.8 g/dl (32.0-36.5); MEAN CORPUSCULAR VOLUME 96.8 fl (80.0-96.0); PLATELET COUNT, AUTOMATED 275 10^3/uL (150-450); WHITE BLOOD COUNT 15.8 10^3/uL (4.0-10.0)
[2023-03-20 08:13] LABS: BLOOD UREA NITROGEN 8 MG/DL (9-23); CARBON DIOXIDE LEVEL 29 MMOL/L (20-31); CHLORIDE LEVEL 102 MMOL/L (98-107); CREATININE FOR GFR 0.67 MG/DL (0.70-1.30); GLOMERULAR FILTRATION RATE > 60.0 (>49); GLUCOSE, FASTING 102 MG/DL (74-106); MAGNESIUM LEVEL 1.9 MG/DL (1.8-2.4); POTASSIUM SERUM 4.2 MMOL/L (3.5-5.1); SODIUM LEVEL 135 MMOL/L (136-145)
[2023-03-20] MEDS: ASPIRIN 81MG ENTERIC TABLET PO SCH (08:18)
[2023-03-20] MEDS: CLOPIDOGREL 75 MG TAB PO SCH (08:18)
[2023-03-20] MEDS: ATORVASTATIN 20 MG TAB PO SCH (08:18)
[2023-03-20] MEDS: FOLIC ACID 1MG TAB PO SCH (08:18)
[2023-03-20] MEDS: MULTIVITAMINS/MINERALS THERAP 1 TAB PO SCH (08:18)
[2023-03-20] MEDS: PANTOPRAZOLE 40MG TAB (PROTONIX) PO SCH (08:18)
[2023-03-20] MEDS: FINASTERIDE 5MG TAB PO SCH (08:18)
[2023-03-20] MEDS: CitaloPRAM (CeleXA) 20 MG TAB PO SCH (08:18)
[2023-03-20] MEDS: ENOXAPARIN 40MG/0.4ML SYRINGE (J1650 PER 10MG) SC SCH (08:19)
[2023-03-20] MEDS: TORSEMIDE 10 MG TABLET PO SCH (08:19)
[2023-03-20 14:00] VITALS: BP 118/61; TEMP 98.8; O2SAT 94
[2023-03-20] MEDS: MIRTAZAPINE 15 MG TAB PO PRN (20:07)
[2023-03-20] MEDS: FERROUS GLUCONATE 324 MG TAB PO SCH (20:07)
[2023-03-20] MEDS ORDERED: ACETAMINOPHEN *IV* 1,000 MG in IV 1 EA IV PRN (21:25)
[2023-03-20] MEDS: PERCOCET 5MG/325MG TAB PO PRN (21:35)
[2023-03-21 06:00] VITALS: BP 115/71; TEMP 98.4; O2SAT 95
[2023-03-21 06:18] LABS: HEMATOCRIT 36.6 % (42.0-52.0); HEMOGLOBIN 12.4 g/dl (13.5-17.5); MEAN CORPUSCULAR HEMOGLOBIN 32.3 pg (27.0-33.0); MEAN CORPUSCULAR HGB CONC 33.9 g/dl (32.0-36.5); MEAN CORPUSCULAR VOLUME 95.3 fl (80.0-96.0); PLATELET COUNT, AUTOMATED 274 10^3/uL (150-450); RED BLOOD COUNT 3.84 10^6/uL (4.30-6.10); WHITE BLOOD COUNT 13.1 10^3/uL (4.0-10.0)
[2023-03-21 06:29] LABS: BLOOD UREA NITROGEN 6 MG/DL (9-23); CALCIUM LEVEL 8.5 MG/DL (8.3-10.6); CARBON DIOXIDE LEVEL 29 MMOL/L (20-31); CHLORIDE LEVEL 101 MMOL/L (98-107); CREATININE FOR GFR 0.67 MG/DL (0.70-1.30); GLOMERULAR FILTRATION RATE > 60.0 (>49); GLUCOSE, FASTING 96 MG/DL (74-106); POTASSIUM SERUM 3.6 MMOL/L (3.5-5.1); SODIUM LEVEL 135 MMOL/L (136-145)
[2023-03-21 14:00] VITALS: BP 118/70; TEMP 97.7; O2SAT 93
[2023-03-21] MEDS: POTASSIUM CHLORIDE 10MEQ SR TABLET PO ONE (15:36)
[2023-03-21 20:31] VITALS: BP 118/70; TEMP 100.7; O2SAT 97
[2023-03-21 22:23] VITALS: TEMP 98.7
[2023-03-22 05:40] VITALS: BP 143/82; TEMP 97.2; O2SAT 93
[2023-03-22 06:04] LABS: HEMATOCRIT 35.2 % (42.0-52.0); HEMOGLOBIN 12.2 g/dl (13.5-17.5); MEAN CORPUSCULAR HEMOGLOBIN 32.5 pg (27.0-33.0); MEAN CORPUSCULAR HGB CONC 34.7 g/dl (32.0-36.5); MEAN CORPUSCULAR VOLUME 93.9 fl (80.0-96.0); PLATELET COUNT, AUTOMATED 294 10^3/uL (150-450); RED BLOOD COUNT 3.75 10^6/uL (4.30-6.10); WHITE BLOOD COUNT 9.5 10^3/uL (4.0-10.0)
[2023-03-22 06:39] LABS: BLOOD UREA NITROGEN 7 MG/DL (9-23); CALCIUM LEVEL 8.6 MG/DL (8.3-10.6); CARBON DIOXIDE LEVEL 27 MMOL/L (20-31); CHLORIDE LEVEL 104 MMOL/L (98-107); CREATININE FOR GFR 0.72 MG/DL (0.70-1.30); GLOMERULAR FILTRATION RATE > 60.0 (>49); GLUCOSE, FASTING 94 MG/DL (74-106); MAGNESIUM LEVEL 1.9 MG/DL (1.8-2.4); POTASSIUM SERUM 3.7 MMOL/L (3.5-5.1); SODIUM LEVEL 138 MMOL/L (136-145)
[2023-03-22 08:19] LABS: PROCALCITONIN <0.04 ng/ml
[2023-03-22 09:15] VITALS: BP 150/75
[2023-03-22] MEDS ORDERED: METR-265 PO (11:16)
[2023-03-22] MEDS ORDERED: PROB250C PO (11:16)
[2023-03-22] MEDS ORDERED: OXYC1TAB23 PO (11:16)
[2023-03-22] MEDS ORDERED: LEVO1TAB40 PO (11:16)
[2023-03-22 11:37] VITALS: TEMP 97.9
== END 2023-03-22 12:13 | disposition home or self-care (01) | DRG 872 ==
LOC: M ED 12:49 → M ED INP 15:41 → M MSPAV 21:31
PROVIDERS: ADMIT Internal Medicine; ATTEND Internal Medicine
DX: A41.9 Sepsis, unspecified organism (principal); A09 Infectious gastroenteritis and colitis, unspecified; I73.9 Peripheral vascular disease, unspecified; I10 Essential (primary) hypertension; E78.5 Hyperlipidemia, unspecified; M54.9 Dorsalgia, unspecified; G89.29 Other chronic pain; K21.9 Gastro-esophageal reflux disease without esophagitis; G25.81 Restless legs syndrome; F32.A Depression, unspecified; F41.9 Anxiety disorder, unspecified; N40.0 Benign prostatic hyperplasia without lower urinary tract symptoms; Z90.49 Acquired absence of other specified parts of digestive tract; F17.210 Nicotine dependence, cigarettes, uncomplicated; Z79.82 Long term (current) use of aspirin; Z79.899 Other long term (current) drug therapy; Z88.8 Allergy status to other drugs, medicaments and biological substances; Z20.822 Contact with and (suspected) exposure to COVID-19; Z95.2 Presence of prosthetic heart valve; Z95.828 Presence of other vascular implants and grafts

== ENCOUNTER 2023-03-26 11:32 | Inpatient (IN) | payer MEDICARE ==
[~2023-03-26] VITALS: Ht 180.3 cm; Wt 101.5 kg
[~2023-03-26 11:32] MED LIST changes: +FINA5TAB2 PO; +LEVO1TAB40 PO; +LORA-930 PO; +METR-265 PO; +PROB250C PO; +THERTAB21 PO; +TORS10TA3 PO
[2023-03-26] MEDS: NS 1,000 ML IV ONE (12:00)
[2023-03-26] MEDS ORDERED: ISOVUE-370 76% 100ML VIAL As Ordered ONE (12:42)
[2023-03-26 12:48] LABS: RSV AMPLIFICATION NEGATIVE (NEGATIVE)
[2023-03-26 12:52] LABS: ALBUMIN 3.2 G/DL (3.2-5.2); ALKALINE PHOSPHATASE 106 U/L (46-116); ALT/SGPT 46 U/L (7.0-40); AST/SGOT 50 U/L (<34); BILIRUBIN,DIRECT < 0.1 MG/DL (<0.4); BILIRUBIN,TOTAL 0.2 MG/DL (0.3-1.2); BLOOD UREA NITROGEN 23 MG/DL (9-23); CALCIUM LEVEL 8.9 MG/DL (8.3-10.6); CARBON DIOXIDE LEVEL 23 MMOL/L (20-31); CHLORIDE LEVEL 105 MMOL/L (98-107); CK-MB VALUE MASS < 1.0 NG/ML (<3.6); CPK CREATINE PHOSPHOKINASE 85 U/L (46-171); CREATININE FOR GFR 1.35 MG/DL (0.70-1.30); GLOMERULAR FILTRATION RATE 56.6 (>49); GLUCOSE, FASTING 160 MG/DL (74-106); LIPASE 45 U/L (12-53); MB/CK RELATIVE INDEX 1.17 (< OR =4); POTASSIUM SERUM 5.2 MMOL/L (3.5-5.1); SODIUM LEVEL 136 MMOL/L (136-145)
[2023-03-26 13:00] LABS: BASO % 0.3 % (0.0-1.0); EOS # 0.1 10^3/uL (0.0-0.5); EOS % 0.8 % (0.0-3.0); HEMATOCRIT 31.3 % (42.0-52.0); HEMOGLOBIN 10.4 g/dl (13.5-17.5); LYMPH # 1.8 10^3/uL (1.5-5.0); LYMPH % 13.7 % (24.0-44.0); MEAN CORPUSCULAR HEMOGLOBIN 32.5 pg (27.0-33.0); MEAN CORPUSCULAR HGB CONC 33.2 g/dl (32.0-36.5); MEAN CORPUSCULAR VOLUME 97.8 fl (80.0-96.0); MONO # 0.6 10^3/uL (0.0-0.8); MONO % 4.9 % (2.0-8.0); NEUTROPHILS # 10.1 10^3/uL (1.5-8.5); NEUTROPHILS % 78.1 % (36.0-66.0); PLATELET COUNT, AUTOMATED 328 10^3/uL (150-450)
[2023-03-26 13:13] LABS: INR 1.16; PROTHROMBIN TIME 14.4 SECONDS (12.5-14.5)
[2023-03-26 13:14] LABS: PARTIAL THROMBOPLASTIN TIME 25.9 SECONDS (24.8-34.2)
[2023-03-26 14:03] LABS: POTASSIUM SERUM 4.8 MMOL/L (3.5-5.1)
[2023-03-26] MEDS: NS 2,050 ML in IV 1 EA IV ONE (14:09)
[2023-03-26] MEDS: PIPERACILLIN/TAZOBACTAM SOD 4.5 GM in D5W MINI-BAG PLUS 50 ML IV ONE (15:06)
[2023-03-26] MEDS: NS 1,000 ML IV SCH (16:46)
[2023-03-26] MEDS ORDERED: THERTAB52 PO (17:30)
[2023-03-26] MEDS ORDERED: FLOM0.4C39 PO (17:30)
[2023-03-26 17:41] LABS: HEMATOCRIT 28.2 % (42.0-52.0); HEMOGLOBIN 9.5 g/dl (13.5-17.5)
[2023-03-26] MEDS: PANTOPRAZOLE 40MG VIAL IV SCH (17:42)
[2023-03-26] MEDS ORDERED: LORazepam 2 MG TAB PO PRN (17:45)
[2023-03-26] MEDS ORDERED: LEVO1TAB40 PO (17:46)
[2023-03-26] MEDS ORDERED: METR-265 PO (17:46)
[2023-03-26] MEDS ORDERED: HOME MED LIST COMPLETE! XX SCH (17:50)
[2023-03-26 18:35] VITALS: BP 119/62
[2023-03-26 18:45] VITALS: BP 119/62; TEMP 97.8; O2SAT 97
[2023-03-26 18:58] LABS: C REACTIVE PROTEIN QUANTITATIV 5.1 MG/DL (<1.0)
[2023-03-26 19:11] LABS: PROCALCITONIN 0.07 ng/ml
[2023-03-26 19:53] VITALS: BP 110/61; TEMP 97.9; O2SAT 96
[2023-03-26] MEDS: PIPERACILLIN/TAZOBACTAM SOD 4.5 GM in D5W MINI-BAG PLUS 50 ML IV SCH (21:08)
[2023-03-26] MEDS: THIAMINE 100 MG TAB PO SCH (21:08)
[2023-03-26] MEDS: MIRTAZAPINE 15 MG TAB PO PRN (21:17)
[2023-03-26] MEDS: BACLOFEN 10 MG TAB PO PRN (21:17)
[2023-03-26 22:00] VITALS: BP 110/61
[2023-03-26 23:36] VITALS: BP 104/65; TEMP 98.2; O2SAT 94
[2023-03-27 00:33] LABS: HEMATOCRIT 24.6 % (42.0-52.0); HEMOGLOBIN 8.3 g/dl (13.5-17.5)
[2023-03-27 03:46] VITALS: BP 124/62; TEMP 98.2; O2SAT 93
[2023-03-27 05:47] LABS: HEMATOCRIT 25.6 % (42.0-52.0); HEMOGLOBIN 8.6 g/dl (13.5-17.5)
[2023-03-27] MEDS: MAGNESIUM CITRATE 300ML BTL PO ONE (06:45)
[2023-03-27] MEDS: FLEET ENEMA PR ONE (06:45)
[2023-03-27 07:19] LABS: BLOOD UREA NITROGEN 14 MG/DL (9-23); CALCIUM LEVEL 8.2 MG/DL (8.3-10.6); CARBON DIOXIDE LEVEL 28 MMOL/L (20-31); CHLORIDE LEVEL 107 MMOL/L (98-107); GLOMERULAR FILTRATION RATE > 60.0 (>49); GLUCOSE, FASTING 100 MG/DL (74-106); MAGNESIUM LEVEL 1.9 MG/DL (1.8-2.4); POTASSIUM SERUM 4.3 MMOL/L (3.5-5.1); SODIUM LEVEL 138 MMOL/L (136-145)
[2023-03-27 08:00] VITALS: BP 132/77; TEMP 97.9; O2SAT 94
[2023-03-27] MEDS: CitaloPRAM (CeleXA) 20 MG TAB PO SCH (08:45)
[2023-03-27] MEDS: ATORVASTATIN 20 MG TAB PO SCH (08:45)
[2023-03-27] MEDS: CLOPIDOGREL 75 MG TAB PO SCH (08:46)
[2023-03-27] MEDS: FINASTERIDE 5MG TAB PO SCH (08:46)
[2023-03-27] MEDS: FOLIC ACID 1MG TAB PO SCH (08:46)
[2023-03-27] MEDS: TAMSULOSIN 0.4 MG CAP PO SCH (08:46)
[2023-03-27] MEDS: MULTIVITAMINS/MINERALS THERAP 1 TAB PO SCH (08:46)
[2023-03-27] MEDS ORDERED: ONDANSETRON 4MG 2ML VIAL IV PRN ×2 (09:25→17:50)
[2023-03-27 12:00] VITALS: BP 133/79; TEMP 98.3; O2SAT 98
[2023-03-27 12:18] LABS: HEMATOCRIT 26.6 % (42.0-52.0)
[2023-03-27] MEDS ORDERED: MIDAZOLAM INJ 2MG/2ML VIAL As Ordered ONE (16:25)
[2023-03-27] MEDS ORDERED: LIDOCAINE 2% 100MG/5ML SDV (FOR ANES.) As Ordered ONE (16:25)
[2023-03-27] MEDS ORDERED: fentaNYL 100 MCG/2 ML INJECTION As Ordered ONE (16:25)
[2023-03-27] MEDS ORDERED: propofoL 200 MG/20 ML VIAL As Ordered ONE (16:25)
[2023-03-27] MEDS ORDERED: PHENYLephrine 500MCG 5ML (100MCG/ML) SYRINGE As Ordered ONE (16:58)
[2023-03-27] MEDS ORDERED: LR 1,000 ML IV SCH (17:50)
[2023-03-27 18:20] VITALS: BP 176/83; TEMP 97.5; O2SAT 93
[2023-03-27 18:50] VITALS: BP 136/73; TEMP 98.6; O2SAT 94
[2023-03-27 21:00] VITALS: BP 143/65; TEMP 98.6; O2SAT 96
[2023-03-28] VITALS (9 sets, daily range): BP systolic 108–134; BP diastolic 57–72; TEMP 97.4–99.4; O2SAT 95–98
[2023-03-28 07:12] LABS: BLOOD UREA NITROGEN 9 MG/DL (9-23); CALCIUM LEVEL 7.7 MG/DL (8.3-10.6); CARBON DIOXIDE LEVEL 27 MMOL/L (20-31); CHLORIDE LEVEL 111 MMOL/L (98-107); CREATININE FOR GFR 0.78 MG/DL (0.70-1.30); GLOMERULAR FILTRATION RATE > 60.0 (>49); GLUCOSE, FASTING 96 MG/DL (74-106); MAGNESIUM LEVEL 2.1 MG/DL (1.8-2.4); POTASSIUM SERUM 4.2 MMOL/L (3.5-5.1); SODIUM LEVEL 141 MMOL/L (136-145)
[2023-03-28 07:19] LABS: BASO % 0.4 % (0.0-1.0); EOS # 0.2 10^3/uL (0.0-0.5); EOS % 1.9 % (0.0-3.0); HEMATOCRIT 22.4 % (42.0-52.0); HEMOGLOBIN 7.6 g/dl (13.5-17.5); LYMPH # 1.6 10^3/uL (1.5-5.0); LYMPH % 19.8 % (24.0-44.0); MEAN CORPUSCULAR HEMOGLOBIN 32.8 pg (27.0-33.0); MEAN CORPUSCULAR HGB CONC 33.9 g/dl (32.0-36.5); MEAN CORPUSCULAR VOLUME 96.6 fl (80.0-96.0); MONO # 0.9 10^3/uL (0.0-0.8); NEUTROPHILS # 5.5 10^3/uL (1.5-8.5); NEUTROPHILS % 66.1 % (36.0-66.0); PLATELET COUNT, AUTOMATED 287 10^3/uL (150-450); RED BLOOD COUNT 2.32 10^6/uL (4.30-6.10); WHITE BLOOD COUNT 8.3 10^3/uL (4.0-10.0)
[2023-03-28 11:21] LABS: HEMOGLOBIN 7.4 g/dl (13.5-17.5)
[2023-03-28] MEDS: ALPRAZolam 0.5 MG TAB PO SCH (12:30)
[2023-03-28 18:52] LABS: HEMATOCRIT 25.5 % (42.0-52.0); HEMOGLOBIN 8.6 g/dl (13.5-17.5)
[2023-03-28 23:07] LABS: HEMATOCRIT 24.7 % (42.0-52.0); HEMOGLOBIN 8.5 g/dl (13.5-17.5)
[2023-03-29 00:43] VITALS: BP 113/73; TEMP 97.6; O2SAT 96
[2023-03-29 04:37] VITALS: BP 127/68; TEMP 98.1; O2SAT 97
[2023-03-29 06:20] LABS: BLOOD UREA NITROGEN 5 MG/DL (9-23); CALCIUM LEVEL 8.1 MG/DL (8.3-10.6); CARBON DIOXIDE LEVEL 28 MMOL/L (20-31); CHLORIDE LEVEL 106 MMOL/L (98-107); CREATININE FOR GFR 0.75 MG/DL (0.70-1.30); GLOMERULAR FILTRATION RATE > 60.0 (>49); GLUCOSE, FASTING 96 MG/DL (74-106); MAGNESIUM LEVEL 1.9 MG/DL (1.8-2.4); POTASSIUM SERUM 3.8 MMOL/L (3.5-5.1); SODIUM LEVEL 139 MMOL/L (136-145)
[2023-03-29 07:41] LABS: BASO % 0.4 % (0.0-1.0); EOS # 0.2 10^3/uL (0.0-0.5); EOS % 2.2 % (0.0-3.0); HEMOGLOBIN 8.5 g/dl (13.5-17.5); LYMPH # 1.5 10^3/uL (1.5-5.0); LYMPH % 19.9 % (24.0-44.0); MEAN CORPUSCULAR HEMOGLOBIN 31.8 pg (27.0-33.0); MEAN CORPUSCULAR VOLUME 93.6 fl (80.0-96.0); MONO # 0.7 10^3/uL (0.0-0.8); MONO % 9.1 % (2.0-8.0); NEUTROPHILS % 67.9 % (36.0-66.0); PLATELET COUNT, AUTOMATED 282 10^3/uL (150-450); RED BLOOD COUNT 2.67 10^6/uL (4.30-6.10); WHITE BLOOD COUNT 7.3 10^3/uL (4.0-10.0)
[2023-03-29 08:00] VITALS: BP 146/81; TEMP 98; O2SAT 97
== END 2023-03-29 15:15 | disposition home or self-care (01) | DRG 392 ==
LOC: M ED 11:32 → M ED INP 15:58 → M PCU 18:21
PROVIDERS: ADMIT Student in an Organized Health Care Education/Training Program; ATTEND Student in an Organized Health Care Education/Training Program
PROC: 0DBH8ZX Excision of Cecum, Via Natural or Artificial Opening Endoscopic, Diagnostic (ICD-10-PCS; 2023-03-27)
PROC: 0W3P8ZZ Control Bleeding in Gastrointestinal Tract, Via Natural or Artificial Opening Endoscopic (ICD-10-PCS; 2023-03-27)
PROC: 0DJ08ZZ Inspection of Upper Intestinal Tract, Via Natural or Artificial Opening Endoscopic (ICD-10-PCS; principal; 2023-03-27 13:00)
PROC: 30233N1 Transfusion of Nonautologous Red Blood Cells into Peripheral Vein, Percutaneous Approach (ICD-10-PCS; 2023-03-28)
DX: A09 Infectious gastroenteritis and colitis, unspecified (principal); N17.9 Acute kidney failure, unspecified; E87.20 Acidosis, unspecified; K63.3 Ulcer of intestine; D62 Acute posthemorrhagic anemia; I10 Essential (primary) hypertension; K57.30 Diverticulosis of large intestine without perforation or abscess without bleeding; K64.4 Residual hemorrhoidal skin tags; E78.5 Hyperlipidemia, unspecified; K21.9 Gastro-esophageal reflux disease without esophagitis; R74.01 Elevation of levels of liver transaminase levels; G89.29 Other chronic pain; M54.9 Dorsalgia, unspecified; G25.81 Restless legs syndrome; I73.9 Peripheral vascular disease, unspecified; Z95.820 Peripheral vascular angioplasty status with implants and grafts; Z98.1 Arthrodesis status; Z95.2 Presence of prosthetic heart valve

== ENCOUNTER → 2023-04-13 | Outpatient (CLI) | payer MEDICARE ==
[~2023-04-13] MED LIST changes: +FLOM0.4C39 PO; +THERTAB52 PO
[2023-04-13 12:13] LABS: BASO % 0.4 % (0.0-1.0); EOS # 0.1 10^3/uL (0.0-0.5); EOS % 1.7 % (0.0-3.0); HEMATOCRIT 29.1 % (42.0-52.0); HEMOGLOBIN 9.5 g/dl (13.5-17.5); LYMPH # 1.6 10^3/uL (1.5-5.0); LYMPH % 21.1 % (24.0-44.0); MEAN CORPUSCULAR HEMOGLOBIN 30.4 pg (27.0-33.0); MEAN CORPUSCULAR HGB CONC 32.6 g/dl (32.0-36.5); MONO # 0.8 10^3/uL (0.0-0.8); MONO % 10.7 % (2.0-8.0); NEUTROPHILS # 4.9 10^3/uL (1.5-8.5); NEUTROPHILS % 65.7 % (36.0-66.0); PLATELET COUNT, AUTOMATED 422 10^3/uL (150-450); RED BLOOD COUNT 3.13 10^6/uL (4.30-6.10); WHITE BLOOD COUNT 7.5 10^3/uL (4.0-10.0)
[2023-04-13 12:41] LABS: ALBUMIN 3.3 G/DL (3.2-5.2); ALKALINE PHOSPHATASE 155 U/L (46-116); ALT/SGPT 17 U/L (7.0-40); AST/SGOT 15 U/L (<34); BILIRUBIN,TOTAL 0.3 MG/DL (0.3-1.2); BLOOD UREA NITROGEN 11 MG/DL (9-23); CALCIUM LEVEL 8.5 MG/DL (8.3-10.6); CARBON DIOXIDE LEVEL 30 MMOL/L (20-31); CHLORIDE LEVEL 105 MMOL/L (98-107); CREATININE FOR GFR 0.64 MG/DL (0.70-1.30); GLOMERULAR FILTRATION RATE > 60.0 (>49); GLUCOSE, FASTING 93 MG/DL (74-106); IRON (FE) 15 UG/DL (65-175); POTASSIUM SERUM 4.6 MMOL/L (3.5-5.1); SODIUM LEVEL 139 MMOL/L (136-145)
[2023-04-13 12:43] LABS: FERRITIN 22.7 NG/ML (10.5-307.3)
== END ==
LOC: M LAB 11:22
PROVIDERS: ATTEND Physician Assistant Medical
DX: K92.2 Gastrointestinal hemorrhage, unspecified (principal); N17.0 Acute kidney failure with tubular necrosis; R79.89 Other specified abnormal findings of blood chemistry; A41.9 Sepsis, unspecified organism; K52.9 Noninfective gastroenteritis and colitis, unspecified

== ENCOUNTER → 2023-04-20 | Outpatient (CLI) | payer MEDICARE ==
[~2023-04-20] VITALS: Ht 180.3 cm; Wt 104.5 kg
[~2023-04-20] MED LIST changes: +ALBUTEROL SULFATE 2.5MG/0.5ML INH NEB SOLN INH PRN; +EPINEPHrine INJ 1 MG/ML 1ML AMP IM PRN; +NS 1,000 ML IV SCH; +diphenhydrAMINE 50MG/ML VIAL IV PRN; +methylPREDNISolone 125MG 2ML VIAL IV PRN
[2023-04-20 13:06] VITALS: BP 140/63; O2SAT 98
[2023-04-20] MEDS: ACETAMINOPHEN 650MG PO PRIOR TO INFUSION PO ONE (13:28)
[2023-04-20] MEDS: diphenhydrAMINE 25MG PO PRIOR TO INFUSION PO ONE (13:28)
[2023-04-20] MEDS: IRON SUCROSE 225 MG in NS 213.75 ML IV ONE (13:35)
[2023-04-20 15:00] VITALS: BP 133/65; O2SAT 97
== END ==
LOC: M INFU 12:28
PROVIDERS: ATTEND Physician Assistant Medical
DX: D50.9 Iron deficiency anemia, unspecified (principal); Z88.8 Allergy status to other drugs, medicaments and biological substances
CPT/HCPCS: 96365; J1756

== ENCOUNTER → 2023-04-25 | Outpatient (CLI) | payer MEDICARE ==
[~2023-04-25] MED LIST changes: -ALBUTEROL SULFATE 2.5MG/0.5ML INH NEB SOLN INH PRN; -EPINEPHrine INJ 1 MG/ML 1ML AMP IM PRN; -NS 1,000 ML IV SCH; -diphenhydrAMINE 50MG/ML VIAL IV PRN; -methylPREDNISolone 125MG 2ML VIAL IV PRN
[2023-04-25 11:57] LABS: BASO % 0.4 % (0.0-1.0); EOS # 0.1 10^3/uL (0.0-0.5); EOS % 1.6 % (0.0-3.0); LYMPH # 1.3 10^3/uL (1.5-5.0); MEAN CORPUSCULAR HEMOGLOBIN 29.2 pg (27.0-33.0); MEAN CORPUSCULAR HGB CONC 32.3 g/dl (32.0-36.5); MEAN CORPUSCULAR VOLUME 90.6 fl (80.0-96.0); MONO # 0.7 10^3/uL (0.0-0.8); MONO % 9.8 % (2.0-8.0); NEUTROPHILS # 4.8 10^3/uL (1.5-8.5); NEUTROPHILS % 68.5 % (36.0-66.0); PLATELET COUNT, AUTOMATED 368 10^3/uL (150-450); RED BLOOD COUNT 3.42 10^6/uL (4.30-6.10)
== END ==
LOC: M LAB 11:28
PROVIDERS: ATTEND Physician Assistant Medical
DX: K92.2 Gastrointestinal hemorrhage, unspecified (principal)

== ENCOUNTER 2023-04-27 13:30 | Outpatient (CLI) | payer MEDICARE ==
[~2023-04-27] VITALS: Ht 210.8 cm; Wt 101.0 kg
[2023-04-27 13:30] VITALS: BP 136/64; O2SAT 97
[~2023-04-27 13:30] MED LIST changes: +ALBUTEROL SULFATE 2.5MG/0.5ML INH NEB SOLN INH PRN; +EPINEPHrine INJ 1 MG/ML 1ML AMP IM PRN; +NS 1,000 ML IV SCH; +diphenhydrAMINE 50MG/ML VIAL IV PRN; +methylPREDNISolone 125MG 2ML VIAL IV PRN
[2023-04-27] MEDS: diphenhydrAMINE 25MG CAP PO ONE (13:46)
[2023-04-27] MEDS: ACETAMINOPHEN TAB 650MG DOSE (2X325MG) PO ONE (13:47)
[2023-04-27] MEDS: IRON SUCROSE 225 MG in NS 225 ML IV ONE (13:55)
[2023-04-27 15:24] VITALS: BP 135/67; O2SAT 95
== END 2023-04-27 15:30 ==
LOC: M INFU 13:30
PROVIDERS: ATTEND Physician Assistant Medical
DX: D50.9 Iron deficiency anemia, unspecified (principal); Z88.8 Allergy status to other drugs, medicaments and biological substances
CPT/HCPCS: 96365; J1756

== ENCOUNTER → 2023-05-02 | Outpatient (CLI) | payer MEDICARE ==
[~2023-05-02] MED LIST changes: -ALBUTEROL SULFATE 2.5MG/0.5ML INH NEB SOLN INH PRN; -EPINEPHrine INJ 1 MG/ML 1ML AMP IM PRN; -NS 1,000 ML IV SCH; -diphenhydrAMINE 50MG/ML VIAL IV PRN; -methylPREDNISolone 125MG 2ML VIAL IV PRN
[2023-05-02 13:36] LABS: BASO % 0.4 % (0.0-1.0); EOS # 0.1 10^3/uL (0.0-0.5); EOS % 1.5 % (0.0-3.0); HEMATOCRIT 31.5 % (42.0-52.0); LYMPH # 1.7 10^3/uL (1.5-5.0); LYMPH % 23.3 % (24.0-44.0); MEAN CORPUSCULAR HEMOGLOBIN 29.3 pg (27.0-33.0); MEAN CORPUSCULAR HGB CONC 31.7 g/dl (32.0-36.5); MEAN CORPUSCULAR VOLUME 92.4 fl (80.0-96.0); MONO # 0.5 10^3/uL (0.0-0.8); MONO % 6.4 % (2.0-8.0); NEUTROPHILS % 67.9 % (36.0-66.0); PLATELET COUNT, AUTOMATED 423 10^3/uL (150-450); RED BLOOD COUNT 3.41 10^6/uL (4.30-6.10); WHITE BLOOD COUNT 7.3 10^3/uL (4.0-10.0)
== END ==
LOC: M LAB 13:03
PROVIDERS: ATTEND Physician Assistant Medical
DX: K92.2 Gastrointestinal hemorrhage, unspecified (principal)

== ENCOUNTER 2023-05-04 13:00 | Outpatient (CLI) | payer MEDICARE ==
[~2023-05-04] VITALS: Ht 180.3 cm; Wt 104.5 kg
[2023-05-04 13:00] VITALS: BP 117/64; O2SAT 97
[~2023-05-04 13:00] MED LIST changes: +ALBUTEROL SULFATE 2.5MG/0.5ML INH NEB SOLN INH PRN; +EPINEPHrine INJ 1 MG/ML 1ML AMP IM PRN; +NS 1,000 ML IV SCH; +diphenhydrAMINE 50MG/ML VIAL IV PRN; +methylPREDNISolone 125MG 2ML VIAL IV PRN
[2023-05-04] MEDS: ACETAMINOPHEN 650MG PO PRIOR TO INFUSION PO ONE (13:14)
[2023-05-04] MEDS: diphenhydrAMINE 25MG PO PRIOR TO INFUSION PO ONE (13:14)
[2023-05-04] MEDS: IRON SUCROSE 225 MG in NS 213.75 ML IV ONE (13:27)
[2023-05-04 15:00] VITALS: BP 134/70; O2SAT 100
== END 2023-05-04 15:10 ==
LOC: M INFU 13:00
PROVIDERS: ATTEND Physician Assistant Medical
DX: D50.9 Iron deficiency anemia, unspecified (principal); Z88.8 Allergy status to other drugs, medicaments and biological substances
CPT/HCPCS: 96365; 96366; J1756

== ENCOUNTER → 2023-05-06 | Outpatient (CLI) | payer MEDICARE ==
[~2023-05-06] MED LIST changes: -ALBUTEROL SULFATE 2.5MG/0.5ML INH NEB SOLN INH PRN; -EPINEPHrine INJ 1 MG/ML 1ML AMP IM PRN; -NS 1,000 ML IV SCH; -diphenhydrAMINE 50MG/ML VIAL IV PRN; -methylPREDNISolone 125MG 2ML VIAL IV PRN
== END ==
LOC: M RAD 12:27
PROVIDERS: ATTEND Surgery
DX: I73.9 Peripheral vascular disease, unspecified (principal)

== ENCOUNTER → 2023-05-20 | Outpatient (CLI) | payer MEDICARE ==
[2023-05-20 12:31] LABS: BASO # 0.1 10^3/uL (0.0-0.2); BASO % 0.8 % (0.0-1.0); EOS # 0.1 10^3/uL (0.0-0.5); EOS % 1.6 % (0.0-3.0); HEMATOCRIT 35.9 % (42.0-52.0); HEMOGLOBIN 11.6 g/dl (13.5-17.5); LYMPH # 1.7 10^3/uL (1.5-5.0); LYMPH % 26.5 % (24.0-44.0); MEAN CORPUSCULAR HEMOGLOBIN 28.5 pg (27.0-33.0); MEAN CORPUSCULAR HGB CONC 32.3 g/dl (32.0-36.5); MEAN CORPUSCULAR VOLUME 88.2 fl (80.0-96.0); MONO # 0.7 10^3/uL (0.0-0.8); MONO % 11.5 % (2.0-8.0); NEUTROPHILS # 3.7 10^3/uL (1.5-8.5); PLATELET COUNT, AUTOMATED 348 10^3/uL (150-450); RED BLOOD COUNT 4.07 10^6/uL (4.30-6.10); WHITE BLOOD COUNT 6.3 10^3/uL (4.0-10.0)
[2023-05-20 12:48] LABS: ERYTHROCYTE SEDIMENTATION RATE 23 mm/hr (0-20)
[2023-05-20 12:57] LABS: ALBUMIN 3.9 G/DL (3.2-5.2); ALKALINE PHOSPHATASE 156 U/L (46-116); ALT/SGPT 19 U/L (7.0-40); AST/SGOT 16 U/L (<34); BILIRUBIN,TOTAL 0.3 MG/DL (0.3-1.2); BLOOD UREA NITROGEN 8 MG/DL (9-23); CALCIUM LEVEL 9.2 MG/DL (8.3-10.6); CARBON DIOXIDE LEVEL 29 MMOL/L (20-31); CHLORIDE LEVEL 106 MMOL/L (98-107); CREATININE FOR GFR 0.64 MG/DL (0.70-1.30); GLOMERULAR FILTRATION RATE > 60.0 (>49); GLUCOSE, FASTING 89 MG/DL (74-106); IRON (FE) 65 UG/DL (65-175); POTASSIUM SERUM 4.9 MMOL/L (3.5-5.1); SODIUM LEVEL 138 MMOL/L (136-145); TOTAL PROTEIN 6.6 G/DL (5.7-8.2)
[2023-05-20 12:59] LABS: FERRITIN 50.6 NG/ML (10.5-307.3)
== END ==
LOC: M LAB 11:47
PROVIDERS: ATTEND Physician Assistant Medical
DX: K92.2 Gastrointestinal hemorrhage, unspecified (principal); A41.9 Sepsis, unspecified organism; D50.9 Iron deficiency anemia, unspecified; E87.20 Acidosis, unspecified; N17.0 Acute kidney failure with tubular necrosis

== ENCOUNTER → 2023-06-18 | Outpatient (CLI) | payer MEDICARE ==
[2023-06-18 16:00] LABS: BASO # 0.1 10^3/uL (0.0-0.2); BASO % 0.6 % (0.0-1.0); EOS # 0.1 10^3/uL (0.0-0.5); EOS % 0.6 % (0.0-3.0); HEMOGLOBIN 12.7 g/dl (13.5-17.5); LYMPH # 1.8 10^3/uL (1.5-5.0); LYMPH % 20.6 % (24.0-44.0); MEAN CORPUSCULAR HEMOGLOBIN 27.7 pg (27.0-33.0); MEAN CORPUSCULAR HGB CONC 32.6 g/dl (32.0-36.5); MONO # 0.9 10^3/uL (0.0-0.8); MONO % 10.7 % (2.0-8.0); NEUTROPHILS # 5.9 10^3/uL (1.5-8.5); NEUTROPHILS % 66.9 % (36.0-66.0); PLATELET COUNT, AUTOMATED 380 10^3/uL (150-450); RED BLOOD COUNT 4.59 10^6/uL (4.30-6.10); WHITE BLOOD COUNT 8.8 10^3/uL (4.0-10.0)
[2023-06-18 16:31] LABS: FERRITIN 21.1 NG/ML (10.5-307.3)
== END ==
LOC: M PLALAB 11:34
PROVIDERS: ATTEND Physician Assistant Medical
DX: K92.2 Gastrointestinal hemorrhage, unspecified (principal)

== ENCOUNTER 2023-06-24 08:55 | Day surgery (SDC) | payer MEDICARE ==
[~2023-06-24] VITALS: Ht 180.3 cm; Wt 102.6 kg
[2023-06-24] MEDS: NS 1,000 ML IV ONE (09:45)
[2023-06-24] MEDS ORDERED: propofoL 200 MG/20 ML VIAL As Ordered ONE (10:42)
[2023-06-24 11:26] VITALS: TEMP 97.6
[2023-06-24 11:45] VITALS: BP 165/87; O2SAT 95
== END 2023-06-24 11:57 | disposition home or self-care (01) ==
LOC: M OPP 08:55
PROVIDERS: ATTEND Surgery
DX: K57.31 Diverticulosis of large intestine without perforation or abscess with bleeding (principal); K63.3 Ulcer of intestine; K63.5 Polyp of colon; K64.4 Residual hemorrhoidal skin tags; K64.8 Other hemorrhoids

== ENCOUNTER 2023-07-14 14:00 | Outpatient (CLI) | payer MEDICARE ==
[~2023-07-14] VITALS: Ht 180.3 cm; Wt 104.5 kg
[~2023-07-14 14:00] MED LIST changes: +ACETAMINOPHEN 650MG PO PRIOR TO INFUSION PO ONE; +ALBUTEROL SULFATE 2.5MG/0.5ML INH NEB SOLN INH PRN; +EPINEPHrine INJ 1 MG/ML 1ML AMP IM PRN; +NS 1,000 ML IV SCH; +diphenhydrAMINE 25MG PO PRIOR TO INFUSION PO ONE; +diphenhydrAMINE 50MG/ML VIAL IV PRN; +methylPREDNISolone 125MG 2ML VIAL IV PRN
[2023-07-14 14:10] VITALS: BP 100/59; O2SAT 97
[2023-07-14] MEDS: IRON SUCROSE 250 MG in NS 237.5 ML IV ONE (14:30)
[2023-07-14 15:50] VITALS: BP 127/58; O2SAT 96
== END 2023-07-14 16:00 | disposition home or self-care (01) ==
LOC: M INFU 14:00
PROVIDERS: ATTEND Physician Assistant Medical
DX: D50.9 Iron deficiency anemia, unspecified (principal); Z88.8 Allergy status to other drugs, medicaments and biological substances
CPT/HCPCS: 96365; J1756

== ENCOUNTER 2023-07-21 15:00 | Outpatient (CLI) | payer MEDICARE ==
[~2023-07-21] VITALS: Ht 180.3 cm; Wt 114.0 kg
[2023-07-21 15:00] VITALS: BP 151/69; O2SAT 97
[~2023-07-21 15:00] MED LIST changes: +ACETAMINOPHEN 650MG PO PRIOR TO INFUSION PO ONE; +ALBUTEROL SULFATE 2.5MG/0.5ML INH NEB SOLN INH PRN; +EPINEPHrine INJ 1 MG/ML 1ML AMP IM PRN; +NS 1,000 ML IV SCH; +diphenhydrAMINE 25MG PO PRIOR TO INFUSION PO ONE; +diphenhydrAMINE 50MG/ML VIAL IV PRN; +methylPREDNISolone 125MG 2ML VIAL IV PRN
[2023-07-21] MEDS: IRON SUCROSE 250 MG in NS 237.5 ML IV ONE (15:28)
[2023-07-21 17:00] VITALS: BP 144/77; O2SAT 97
== END 2023-07-21 17:00 ==
LOC: M INFU 15:00
PROVIDERS: ATTEND Physician Assistant Medical
DX: D50.9 Iron deficiency anemia, unspecified (principal); Z88.8 Allergy status to other drugs, medicaments and biological substances
CPT/HCPCS: 96365; J1756

== ENCOUNTER → 2023-07-21 | Outpatient (CLI) | payer MEDICARE ==
[~2023-07-21] MED LIST changes: -ACETAMINOPHEN 650MG PO PRIOR TO INFUSION PO ONE; -ALBUTEROL SULFATE 2.5MG/0.5ML INH NEB SOLN INH PRN; -EPINEPHrine INJ 1 MG/ML 1ML AMP IM PRN; -NS 1,000 ML IV SCH; -diphenhydrAMINE 25MG PO PRIOR TO INFUSION PO ONE; -diphenhydrAMINE 50MG/ML VIAL IV PRN; -methylPREDNISolone 125MG 2ML VIAL IV PRN
== END ==
LOC: M INFU 15:00
PROVIDERS: ATTEND Physician Assistant Medical
DX: Z53.9 Procedure and treatment not carried out, unspecified reason (principal)

== ENCOUNTER 2023-07-28 15:10 | Outpatient (CLI) | payer MEDICARE ==
[~2023-07-28] VITALS: Ht 180.3 cm; Wt 104.5 kg
[2023-07-28 15:10] VITALS: BP 105/56; O2SAT 95
[~2023-07-28 15:10] MED LIST changes: +IRON SUCROSE 250 MG in NS 237.5 ML IV ONE
[2023-07-28] MEDS: IRON SUCROSE 250 MG in NS 237.5 ML IV ONE (15:37)
[2023-07-28 17:00] VITALS: BP 117/59; O2SAT 94
== END 2023-07-28 17:00 ==
LOC: M INFU 15:10
PROVIDERS: ATTEND Physician Assistant Medical
DX: D50.9 Iron deficiency anemia, unspecified (principal); Z88.8 Allergy status to other drugs, medicaments and biological substances
CPT/HCPCS: 96365; J1756

== ENCOUNTER → 2023-07-31 | Outpatient (CLI) | payer MEDICARE ==
[~2023-07-31] MED LIST changes: -ACETAMINOPHEN 650MG PO PRIOR TO INFUSION PO ONE; -ALBUTEROL SULFATE 2.5MG/0.5ML INH NEB SOLN INH PRN; -EPINEPHrine INJ 1 MG/ML 1ML AMP IM PRN; -IRON SUCROSE 250 MG in NS 237.5 ML IV ONE; -NS 1,000 ML IV SCH; -diphenhydrAMINE 25MG PO PRIOR TO INFUSION PO ONE; -diphenhydrAMINE 50MG/ML VIAL IV PRN; -methylPREDNISolone 125MG 2ML VIAL IV PRN
[2023-07-31 18:02] LABS: BASO # 0.1 10^3/uL (0.0-0.2); BASO % 0.5 % (0.0-1.0); EOS # 0.1 10^3/uL (0.0-0.5); HEMATOCRIT 41.6 % (42.0-52.0); HEMOGLOBIN 13.7 g/dl (13.5-17.5); LYMPH # 1.7 10^3/uL (1.5-5.0); LYMPH % 18.4 % (24.0-44.0); MEAN CORPUSCULAR HEMOGLOBIN 27.2 pg (27.0-33.0); MEAN CORPUSCULAR HGB CONC 32.9 g/dl (32.0-36.5); MEAN CORPUSCULAR VOLUME 82.5 fl (80.0-96.0); MONO # 0.9 10^3/uL (0.0-0.8); MONO % 9.8 % (2.0-8.0); NEUTROPHILS # 6.6 10^3/uL (1.5-8.5); NEUTROPHILS % 69.8 % (36.0-66.0); PLATELET COUNT, AUTOMATED 299 10^3/uL (150-450); RED BLOOD COUNT 5.04 10^6/uL (4.30-6.10); WHITE BLOOD COUNT 9.5 10^3/uL (4.0-10.0)
[2023-07-31 18:25] LABS: FERRITIN 274.1 NG/ML (10.5-307.3)
== END ==
LOC: M PLALAB 14:35
PROVIDERS: ATTEND Physician Assistant Medical
DX: D50.9 Iron deficiency anemia, unspecified (principal); M47.817 Spondylosis without myelopathy or radiculopathy, lumbosacral region; M16.0 Bilateral primary osteoarthritis of hip

== ENCOUNTER → 2023-10-21 | Outpatient (CLI) | payer MEDICARE ==
[~2023-10-21] MED LIST changes: +ISOVUE-370 76% 100ML VIAL As Ordered ONE
== END ==
LOC: M RAD 07:53
PROVIDERS: ATTEND Surgery
DX: I70.202 Unspecified atherosclerosis of native arteries of extremities, left leg (principal); I77.4 Celiac artery compression syndrome; K55.1 Chronic vascular disorders of intestine; I70.1 Atherosclerosis of renal artery
CPT/HCPCS: 75635; Q9967

== ENCOUNTER → 2023-10-29 | Outpatient (CLI) | payer MEDICARE ==
[~2023-10-29] MED LIST changes: -ISOVUE-370 76% 100ML VIAL As Ordered ONE
[2023-10-29 16:02] LABS: BASO # 0.1 10^3/uL (0.0-0.2); EOS # 0.1 10^3/uL (0.0-0.5); EOS % 1.1 % (0.0-3.0); HEMATOCRIT 47.6 % (42.0-52.0); HEMOGLOBIN 16.2 g/dl (13.5-17.5); LYMPH # 1.8 10^3/uL (1.5-5.0); LYMPH % 25.2 % (24.0-44.0); MONO # 0.8 10^3/uL (0.0-0.8); MONO % 11.8 % (2.0-8.0); NEUTROPHILS # 4.3 10^3/uL (1.5-8.5); NEUTROPHILS % 60.5 % (36.0-66.0); PLATELET COUNT, AUTOMATED 284 10^3/uL (150-450); RED BLOOD COUNT 5.23 10^6/uL (4.30-6.10); WHITE BLOOD COUNT 7.1 10^3/uL (4.0-10.0)
[2023-10-29 16:24] LABS: ERYTHROCYTE SEDIMENTATION RATE 23 mm/hr (0-20)
[2023-10-29 16:27] LABS: C REACTIVE PROTEIN QUANTITATIV 0.4 MG/DL (<1.0)
[2023-10-29 16:31] LABS: FERRITIN 63.6 NG/ML (10.5-307.3)
== END ==
LOC: M PLALAB 11:54
PROVIDERS: ATTEND Physician Assistant Medical
DX: M65.9 Synovitis and tenosynovitis, unspecified (principal); D50.9 Iron deficiency anemia, unspecified; R05.2 Subacute cough

== ENCOUNTER → 2023-12-30 | Outpatient (CLI) | payer MEDICARE | LOC: M CARPUL 14:05 | PROVIDERS: ATTEND Physician Assistant Medical | DX: R06.02 Shortness of breath (principal) ==

== ENCOUNTER → 2024-01-25 | Outpatient (CLI) | payer MEDICARE ==
[2024-01-25 14:14] LABS: HEMATOCRIT 48.4 % (42.0-52.0); HEMOGLOBIN 16.6 g/dl (13.5-17.5); MEAN CORPUSCULAR HEMOGLOBIN 31.6 pg (27.0-33.0); MEAN CORPUSCULAR HGB CONC 34.3 g/dl (32.0-36.5); MEAN CORPUSCULAR VOLUME 92.2 fl (80.0-96.0); PLATELET COUNT, AUTOMATED 283 10^3/uL (150-450); RED BLOOD COUNT 5.25 10^6/uL (4.30-6.10); WHITE BLOOD COUNT 8.2 10^3/uL (4.0-10.0)
[2024-01-25 14:18] LABS: VITAMIN B12 LEVEL 540 PG/ML (211-911)
[2024-01-25 14:27] LABS: ALBUMIN 4.1 G/DL (3.2-5.2); ALKALINE PHOSPHATASE 136 U/L (40-129); ALT/SGPT 37 U/L (7.0-40); AST/SGOT 32 U/L (<34); BILIRUBIN,TOTAL 0.6 MG/DL (0.3-1.2); BLOOD UREA NITROGEN 10 MG/DL (9-23); CALCIUM LEVEL 10.1 MG/DL (8.3-10.6); CARBON DIOXIDE LEVEL 30 MMOL/L (20-31); CHLORIDE LEVEL 96 MMOL/L (98-107); GLOMERULAR FILTRATION RATE > 60.0 (>49); GLUCOSE, FASTING 104 MG/DL (74-106); POTASSIUM SERUM 5.3 MMOL/L (3.5-5.1); SODIUM LEVEL 133 MMOL/L (136-145); TOTAL PROTEIN 7.6 G/DL (5.7-8.2)
[2024-01-25 14:29] LABS: URIC ACID 4.9 MG/DL (3.7-9.2)
[2024-01-25 14:46] LABS: HEMOGLOBIN A1c 5.7 % (4.0-6.0)
== END ==
LOC: M PLALAB 10:28
PROVIDERS: ATTEND Physician Assistant Medical
DX: R60.9 Edema, unspecified (principal); G62.9 Polyneuropathy, unspecified; K76.0 Fatty (change of) liver, not elsewhere classified; Z79.899 Other long term (current) drug therapy

== ENCOUNTER → 2024-04-26 | Outpatient (CLI) | payer MEDICARE ==
[2024-04-26 14:40] LABS: BASO # 0.1 10^3/uL (0.0-0.2); BASO % 1.1 % (0.0-1.0); EOS # 0.1 10^3/uL (0.0-0.5); EOS % 1.9 % (0.0-3.0); HEMATOCRIT 47.2 % (42.0-52.0); HEMOGLOBIN 16.2 g/dl (13.5-17.5); LYMPH # 1.2 10^3/uL (1.5-5.0); LYMPH % 20.3 % (24.0-44.0); MEAN CORPUSCULAR HEMOGLOBIN 32.5 pg (27.0-33.0); MEAN CORPUSCULAR HGB CONC 34.3 g/dl (32.0-36.5); MEAN CORPUSCULAR VOLUME 94.8 fl (80.0-96.0); MONO # 0.9 10^3/uL (0.0-0.8); MONO % 15.2 % (2.0-8.0); NEUTROPHILS # 3.5 10^3/uL (1.5-8.5); NEUTROPHILS % 60.8 % (36.0-66.0); PLATELET COUNT, AUTOMATED 247 10^3/uL (150-450); RED BLOOD COUNT 4.98 10^6/uL (4.30-6.10); WHITE BLOOD COUNT 5.7 10^3/uL (4.0-10.0)
[2024-04-26 14:45] LABS: ALBUMIN 3.9 G/DL (3.2-5.2); ALKALINE PHOSPHATASE 136 U/L (40-129); ALT/SGPT 25 U/L (7.0-40); AST/SGOT 24 U/L (<34); BILIRUBIN,TOTAL 0.4 MG/DL (0.3-1.2); BLOOD UREA NITROGEN 10 MG/DL (9-23); CALCIUM LEVEL 9.3 MG/DL (8.3-10.6); CARBON DIOXIDE LEVEL 31 MMOL/L (20-31); CHLORIDE LEVEL 98 MMOL/L (98-107); CHOLESTEROL LEVEL 141 MG/DL (<200); CHOLESTEROL RISK RATIO 2.64 (<5); CREATININE FOR GFR 0.66 MG/DL (0.70-1.30); GLOMERULAR FILTRATION RATE > 60.0 (>49); GLUCOSE, FASTING 111 MG/DL (74-106); HDL CHOLESTEROL 53.3 MG/DL (>40); IRON (FE) 60 UG/DL (65-175); LDL CHOLESTEROL 74.3 MG/DL (<100); NON-HDL-C 87.7 MG/DL; POTASSIUM SERUM 4.8 MMOL/L (3.5-5.1); PSA SCREENING 0.12 NG/ML (< 4.00); SODIUM LEVEL 136 MMOL/L (136-145); TOTAL PROTEIN 7.2 G/DL (5.7-8.2); TRIGLYCERIDES LEVEL 67 MG/DL (<150)
[2024-04-27 13:03] LABS: HEPATITIS A IgG TOTAL NON-REACTIVE (NON-REACTIVE)
== END ==
LOC: M PLAIMG 10:47
PROVIDERS: ATTEND Physician Assistant Medical
DX: M20.41 Other hammer toe(s) (acquired), right foot (principal); M20.42 Other hammer toe(s) (acquired), left foot; D50.9 Iron deficiency anemia, unspecified; K76.0 Fatty (change of) liver, not elsewhere classified; E78.00 Pure hypercholesterolemia, unspecified; Z12.5 Encounter for screening for malignant neoplasm of prostate
CPT/HCPCS: 36415; 71111; 72072; 72114; 73630; 80053; 80061; 82107; 82728; 83540; 83880; 84238; 85025; 86708; 86709; G0103

== ENCOUNTER → 2024-05-17 | Outpatient (CLI) | payer MEDICARE | LOC: M RAD 15:47 | PROVIDERS: ATTEND Surgery | DX: I70.203 Unspecified atherosclerosis of native arteries of extremities, bilateral legs (principal); Z98.62 Peripheral vascular angioplasty status ==

== ENCOUNTER → 2024-08-10 | Outpatient (CLI) | payer MEDICARE ==
[~2024-08-10] MED LIST changes: -EQL50TAB2 PO; -FLOM0.4C39 PO; +LISI40TA10 PO; -LISI40TA4 PO; +PREG-35 PO; -PREG100CA PO; +TAMS-18 PO; +VITA1TAB82 PO
== END ==
LOC: M WHC 12:54
PROVIDERS: ATTEND Physician Assistant Medical
DX: N63.13 Unspecified lump in the right breast, lower outer quadrant (principal)
CPT/HCPCS: 77066; G0279

== ENCOUNTER → 2024-08-30 | Outpatient (CLI) | payer MEDICARE | LOC: M PLAIMG 10:48 | PROVIDERS: ATTEND Physician Assistant Medical | DX: M25.571 Pain in right ankle and joints of right foot (principal) ==

== ENCOUNTER → 2024-09-20 | Outpatient (CLI) | payer MEDICARE | LOC: M RAD 13:55 | PROVIDERS: ATTEND Surgery | DX: I70.203 Unspecified atherosclerosis of native arteries of extremities, bilateral legs (principal) ==

== ENCOUNTER → 2024-10-19 | Outpatient (REF) | payer MEDICARE | LOC: M SFHCPLAZ 10:32 | PROVIDERS: ATTEND Physician Assistant Medical | DX: Z53.9 Procedure and treatment not carried out, unspecified reason (principal) ==

== ENCOUNTER → 2024-10-20 | Outpatient (CLI) | payer MEDICARE ==
[2024-10-20 13:23] LABS: BASO # 0.1 10^3/uL (0.0-0.2); BASO % 1.0 % (0.0-1.0); EOS # 0.1 10^3/uL (0.0-0.5); EOS % 1.6 % (0.0-3.0); LYMPH # 1.9 10^3/uL (1.5-5.0); LYMPH % 24.4 % (24.0-44.0); MONO # 1.0 10^3/uL (0.0-0.8); MONO % 12.8 % (2.0-8.0); NEUTROPHILS # 4.7 10^3/uL (1.5-8.5); NEUTROPHILS % 58.8 % (36.0-66.0); PLATELET COUNT, AUTOMATED 274 10^3/uL (150-450)
[2024-10-20 13:24] LABS: C REACTIVE PROTEIN QUANTITATIV 1.07 MG/DL (<1.0)
[2024-10-20 13:26] LABS: ALT/SGPT 31 U/L (7.0-40); AST/SGOT 32 U/L (<34); CALCIUM LEVEL 9.5 MG/DL (8.3-10.6); CARBON DIOXIDE LEVEL 29 MMOL/L (20-31); CHLORIDE LEVEL 102 MMOL/L (98-107); CREATININE FOR GFR 0.80 MG/DL (0.70-1.30); GLOMERULAR FILTRATION RATE > 90.0 (>49); IRON (FE) 50 UG/DL (65-175); POTASSIUM SERUM 4.9 MMOL/L (3.5-5.1); SODIUM LEVEL 138 MMOL/L (136-145)
[2024-10-20 13:30] LABS: ERYTHROCYTE SEDIMENTATION RATE 15 mm/hr (0-20)
== END ==
LOC: M PLALAB 10:27
PROVIDERS: ATTEND Physician Assistant Medical
DX: D50.9 Iron deficiency anemia, unspecified (principal); M25.571 Pain in right ankle and joints of right foot; I73.9 Peripheral vascular disease, unspecified; T85.192S Other mechanical complication of implanted electronic neurostimulator of spinal cord electrode (lead), sequela; M51.16 Intervertebral disc disorders with radiculopathy, lumbar region; G62.9 Polyneuropathy, unspecified; M46.06 Spinal enthesopathy, lumbar region

== ENCOUNTER → 2024-11-14 | Outpatient (CLI) | payer MEDICARE | LOC: M RAD 14:42 | PROVIDERS: ATTEND Physician Assistant | DX: M54.50 Low back pain, unspecified (principal); Z96.82 Presence of neurostimulator; M47.816 Spondylosis without myelopathy or radiculopathy, lumbar region; I70.0 Atherosclerosis of aorta; Z95.820 Peripheral vascular angioplasty status with implants and grafts; Z98.1 Arthrodesis status ==

== ENCOUNTER → 2024-11-16 | Outpatient (CLI) | payer MEDICARE | LOC: M RAD 11-15 06:57 | PROVIDERS: ATTEND Physician Assistant | DX: M51.26 Other intervertebral disc displacement, lumbar region (principal); Z98.1 Arthrodesis status ==

== ENCOUNTER → 2025-01-16 | Outpatient (CLI) | payer MEDICARE ==
[2025-01-16 12:52] LABS: BASO # 0.1 10^3/uL (0.0-0.2); BASO % 0.7 % (0.0-1.0); EOS # 0.1 10^3/uL (0.0-0.5); EOS % 0.9 % (0.0-3.0); LYMPH # 2.2 10^3/uL (1.5-5.0); LYMPH % 25.1 % (24.0-44.0); MONO # 1.0 10^3/uL (0.0-0.8); MONO % 11.5 % (2.0-8.0); NEUTROPHILS # 5.5 10^3/uL (1.5-8.5); NEUTROPHILS % 61.2 % (36.0-66.0); PLATELET COUNT, AUTOMATED 243 10^3/uL (150-450)
[2025-01-16 13:22] LABS: ALT/SGPT 21 U/L (7.0-40); AST/SGOT 24 U/L (<34); CALCIUM LEVEL 9.2 MG/DL (8.3-10.6); CARBON DIOXIDE LEVEL 31 MMOL/L (20-31); CHLORIDE LEVEL 105 MMOL/L (98-107); CREATININE FOR GFR 0.73 MG/DL (0.70-1.30); GLOMERULAR FILTRATION RATE > 90.0 (>49); POTASSIUM SERUM 4.5 MMOL/L (3.5-5.1); SODIUM LEVEL 139 MMOL/L (136-145)
[2025-01-16 13:39] LABS: INR 0.94
[2025-01-16 13:42] LABS: ESTIMATED AVERAGE GLUCOSE 117.0 MG/DL (60-110)
== END ==
LOC: M PLALAB 11:59
PROVIDERS: ATTEND Family Medicine
DX: D50.9 Iron deficiency anemia, unspecified (principal); R73.01 Impaired fasting glucose; I10 Essential (primary) hypertension; I25.10 Atherosclerotic heart disease of native coronary artery without angina pectoris